=== PATIENT | female | born 1995 | race Caucasian/White ===

== ENCOUNTER 2018-09-22 00:38 | Emergency (ER) | payer OTHER ==
[2018-09-22 00:45] VITALS: RESP 18
[2018-09-22] MEDS ORDERED: FAMOTIDINE 20 MG/2 ML VIAL IV STA (00:56)
[2018-09-22] MEDS ORDERED: METOCLOPRAMIDE 5 MG/ML 2 ML VIAL IVP STA (00:56)
[2018-09-22] MEDS ORDERED: diphenhydrAMINE 50 MG/ML 1 ML VIAL IVP STA (00:56)
[2018-09-22] MEDS ORDERED: SODIUM CHLORIDE 0.9% 1,000 ML IV STA (00:56)
[2018-09-22 01:20] LABS: Basophils % (A) 0 %; Eosinophils # (A) 0.1 k/uL (0-0.7); Eosinophils % (A) 1 %; HCT 40.6 % (34.0-46.0); HGB 14.3 gm/dL (11.4-16.0); Lymphocytes # (A) 1.8 k/uL (1.0-4.8); Lymphocytes % (A) 18 %; MCH 29.2 pg (25.0-35.0); MCHC 35.3 g/dL (31.0-37.0); MCV 82.9 fL (80.0-100.0); Mean Platelet Volume 7.9; Monocytes # (A) 0.4 k/uL (0-1.0); Monocytes % (A) 4 %; Neutrophils # (A) 7.5 k/uL (1.3-7.7); Neutrophils % (A) 75 %; Platelet Count 260 k/uL (150-450); RBC 4.89 m/uL (3.80-5.40); RDW 14.1 % (11.5-15.5); WBC 10.1 k/uL (3.8-10.6)
[2018-09-22 01:23] LABS: Appearance,Urine Cloudy (Clear); Bilirubin,Urine 1+ (Negative); Blood,Urine Negative (Negative); Color,Urine Yellow; Glucose,Urine (UA) Negative (Negative); Ketones,Urine 4+ (Negative); Leukocyte Esterase,Urine Negative (Negative); Mucus,Urine Many /hpf; Nitrite,Urine Negative (Negative); Protein,Urine 1+ (Negative); RBC,Urine 5 /hpf (0-5); Specific Gravity,Urine 1.032 (1.001-1.035); Squamous Epithelial Cell,Urine 4 /hpf (0-4); WBC,Urine 3 /hpf (0-5)
[2018-09-22 01:30] LABS: ALT 22 U/L (9-52); AST 16 U/L (14-36); African American GFR (CKD) >90 (>60 ml/min/1.73 sqM); Alkaline Phosphatase 79 U/L (38-126); Amylase 85 U/L (30-110); Anion Gap 17 mmol/L; Blood Urea Nitrogen 8 mg/dL (7-17); Calcium 9.6 mg/dL (8.4-10.2); Carbon Dioxide 21 mmol/L (22-30); Chloride 102 mmol/L (98-107); Glucose 92 mg/dL (74-99); Lipase 204 U/L (23-300); Potassium 3.6 mmol/L (3.5-5.1); Sodium 140 mmol/L (137-145); Total Bilirubin 0.8 mg/dL (0.2-1.3); Total Protein 7.9 g/dL (6.3-8.2)
[2018-09-22] MEDS ORDERED: DEXTROSE 5% IN WATER 1,000 ML IV STA (02:11)
[2018-09-22] MEDS ORDERED: DEXTROSE 5% IN WATER 1,000 ML IV SCH (02:15)
--- NOTE | 2018-09-22 03:22 | ED ---
Abdominal Pain HPI - General Chief Complaint: Abdominal Pain Stated Complaint: hernia,vomiting Time Seen by Provider: 09/22/18 00:46 Source: patient Mode of arrival: wheelchair Limitations: no limitations - History of Present Illness Initial Comments: 23-year-old female patient with past medical history significant for cyclic vomiting syndrome presents to the emergency department this evening for evaluation of vomiting and acid reflux. Patient states that she was discharged from [facility] this morning after being admitted with intrac table vomiting. Patient states that she was feeling good at the time of discharge however symptoms returned this evening. Patient states she's been unable to keep down any food or fluids. Patient did undergo lab testing and CT abdomen and pelvis at [facility]. CT reports showed that she had a moderate sized hiatal hernia with evidence of gastritis. Labs showed hypokalemia which was replaced IV. Patient denies any abdominal pain currently. Denies any fever or chills. Denies any chance of . Patient denies any recent rash, shortness breath, chest pain, abdominal pain, diarrhea, constipation, back pain, numbness, tingling, dizziness, weakness, headache, visual changes, or any other complaints. - Related Data Previous Rx's Medication Instructions Recorded Ondansetron Odt [Zofran Odt] 4 mg PO Q8HR PRN #10 tab 04/25/15 Famotidine [Pepcid] 20 mg PO HS #30 tablet 09/22/18 Metoclopramide [Reglan] 10 mg PO Q8H PRN #15 tab 09/22/18 Allergies Allergy/AdvReac Type Severity Reaction Status Date / Time No Known Allergies Allergy Verified 04/25/15 14:50 Review of Systems ROS Statement: Those systems with pertinent positive or pertinent negative responses have been documented in the HPI. ROS Other: All systems not noted in ROS Statement are negative. Past Medical History Past Medical History: No Reported History History of Any Multi-Drug Resistant Organisms: None Reported Past Surgical History: No Surgical Hx Reported Past Psychological History: No Psychological Hx Reported Smoking Status: Never smoker Past Alcohol Use History: None Reported Past Drug Use History: Marijuana General Exam Limitations: no limitations General appearance: alert, in no apparent distress, other (This is a well- developed, well-nourished adult female patient in no acute distress. Vital signs upon presentation are temperature 99.1F, pulse 82, respirations 18, blood pressure 133/88, pulse ox 100% on room air.) Eye exam: Present: normal appearance, PERRL, EOMI. Absent: scleral icterus, conjunctival injection, periorbital swelling ENT exam: Present: normal exam, normal oropharynx, mucous membranes moist Respiratory exam: Present: normal lung sounds bilaterally. Absent: respiratory distress, wheezes, rales, rhonchi, stridor Cardiovascular Exam: Present: regular rate, normal rhythm, normal heart sounds. Absent: systolic murmur, diastolic murmur, rubs, gallop, clicks GI/Abdominal exam: Present: soft, normal bowel sounds. Absent: distended, tenderness, guarding, rebound, rigid Neurological exam: Present: alert, oriented X3, CN II-XII intact Psychiatric exam: Present: normal affect, normal mood Skin exam: Present: warm, dry, intact, normal color. Absent: rash Course Vital Signs 09/22/18 00:40 Temperature 99.1 F Pulse Rate 82 Respiratory 18 Rate Blood Pressure 133/88 O2 Sat by Pulse 100 Oximetry Medical Decision Making - Medical Decision Making 23-year-old female patient presents to emergency department today for evaluation of vomiting and acid reflux symptoms. Physical examination was relatively unremarkable. Abdomen was soft and nontender. Labs reviewed and are unremarkable. Potassium level is normal. Patient was given IV fluids including dextrose 5% and normal saline as well as IV Reglan and Benadryl. Upon reevalua tion patient is feeling better. I did review reports from [facility] including computed tomography scan which showed evidence for moderate size hiatal hernia with evidence of gastritis. Patient will be discharged home at this time with prescription for Pepcid and Reglan. She is instructed to follow-up with her primary care physician for recheck in 1-2 days. She does have an appointment on September 25 for an EGD with Dr. pham, she is urged to keep this appointment. Return parameters were discussed in detail. She verbalizes understanding and agrees with this plan. - Lab Data Result diagrams: 09/22/18 01:07 09/22/18 01:07 Lab Results 09/22/18 09/22/18 09/22/18 Range/Units 01:07 01:07 01:07 WBC 10.1 (3.8-10.6) k/uL RBC 4.89 (3.80-5.40) m/uL Hgb 14.3 (11.4-16.0) gm/dL Hct 40.6 (34.0-46.0) % MCV 82.9 (80.0-100.0) fL MCH 29.2 (25.0-35.0) pg MCHC 35.3 (31.0-37.0) g/dL RDW 14.1 (11.5-15.5) % Plt Count 260 (150-450) k/uL Neutrophils % 75 % Lymphocytes % 18 % Monocytes % 4 % Eosinophils % 1 % Basophils % 0 % Neutrophils # 7.5 (1.3-7.7) k/uL Lymphocytes # 1.8 (1.0-4.8) k/uL Monocytes # 0.4 (0-1.0) k/uL Eosinophils # 0.1 (0-0.7) k/uL Basophils # 0.0 (0-0.2) k/uL Sodium 140 (137-145) mmol/L Potassium 3.6 (3.5-5.1) mmol/L Chloride 102 (98-107) mmol/L Carbon Dioxide 21 L (22-30) mmol/L Anion Gap 17 mmol/L BUN 8 (7-17) mg/dL Creatinine 0.60 (0.52-1.04) mg/dL Est GFR (CKD-EPI)AfAm >90 (>60 ml/min/1.73 sqM) Est GFR (CKD-EPI)NonAf >90 (>60 ml/min/1.73 sqM) Glucose 92 (74-99) mg/dL Calcium 9.6 (8.4-10.2) mg/dL Total Bilirubin 0.8 (0.2-1.3) mg/dL AST 16 (14-36) U/L ALT 22 (9-52) U/L Alkaline Phosphatase 79 (38-126) U/L Total Protein 7.9 (6.3-8.2) g/dL Albumin 5.0 (3.5-5.0) g/dL Amylase 85 (30-110) U/L Lipase 204 (23-300) U/L Urine Color Yellow Urine Appearance Cloudy H (Clear) Urine pH 6.0 (5.0-8.0) Ur Specific [place] 1.032 (1.001-1.035) Urine Protein 1+ H (Negative) Urine Glucose (UA) Negative (Negative) Urine Ketones 4+ H (Negative) Urine Blood Negative (Negative) Urine Nitrite Negative (Negative) Urine Bilirubin 1+ H (Negative) Urine Urobilinogen 3.0 (<2.0) mg/dL Ur Leukocyte Esterase Negative (Negative) Urine RBC 5 (0-5) /hpf Urine WBC 3 (0-5) /hpf Ur Squamous Epith Cells 4 (0-4) /hpf Urine Mucus Many H (None) /hpf Disposition Clinical Impression: Hiatal hernia, Gastritis, Cyclic vomiting syndrome Disposition: HOME SELF-CARE Condition: Good Instructions (If sedation given, give patient instructions): Hiatal Hernia (ED), Gastritis (ED), Diet for Stomach Ulcers and Gastritis (ED) Additional Instructions: Eat small more frequent meals. Follow diet for gastritis. Take medications as directed. Follow-up with the jack tamp operator for your EGD scope as planned. Follow-up with primary care physician for recheck in 1-2 days. Return to the emergency department immediately for any new, worsening, or concerning symptoms. Prescriptions: Famotidine [Pepcid] 20 mg PO HS #30 tablet Metoclopramide [Reglan] 10 mg PO Q8H PRN #15 tab PRN Reason: Vomiting Is patient prescribed a controlled substance at d/c from ED?: No Referrals: None,Stated [Primary Care Provider] - 1-2 days Time of Disposition: 03:22
[2018-09-22 03:41] VITALS: BP 115/75; PULSE 59; TEMP 98.5
== END 2018-09-22 03:41 | disposition home or self-care (01) ==
LOC: EC 00:38
DX: K44.9 Diaphragmatic hernia without obstruction or gangrene (principal); K29.70 Gastritis, unspecified, without bleeding; G43.A0 Cyclical vomiting, in migraine, not intractable
CPT/HCPCS: 36415; 80053; 82150; 83690; 85025; 81001; 99284; 96374; 96375 ×2; 96361 ×2; J1200; J2765

== ENCOUNTER → 2018-10-12 | Outpatient (CLI) | payer OTHER ==
[2018-10-12 13:40] LABS: Basophils % (A) 1 %; Eosinophils # (A) 0.2 k/uL (0-0.7); Eosinophils % (A) 4 %; HCT 38.9 % (34.0-46.0); Lymphocytes # (A) 1.6 k/uL (1.0-4.8); Lymphocytes % (A) 36 %; MCH 29.4 pg (25.0-35.0); MCHC 33.6 g/dL (31.0-37.0); MCV 87.5 fL (80.0-100.0); Mean Platelet Volume 7.4; Monocytes # (A) 0.2 k/uL (0-1.0); Monocytes % (A) 5 %; Neutrophils # (A) 2.4 k/uL (1.3-7.7); Neutrophils % (A) 53 %; Platelet Count 225 k/uL (150-450); RBC 4.44 m/uL (3.80-5.40); RDW 12.8 % (11.5-15.5); WBC 4.5 k/uL (3.8-10.6)
== END | disposition home or self-care (01) ==
LOC: LABPAT 12:50
PROVIDERS: ATTEND Surgery
DX: Z01.812 Encounter for preprocedural laboratory examination (principal); K21.0 Gastro-esophageal reflux disease with esophagitis
CPT/HCPCS: 36415; 85025

== ENCOUNTER 2018-10-23 09:50 | Day surgery (SDC) | payer OTHER ==
[2018-10-22 14:47] VITALS: BMI 26.4
[2018-10-23 10:12] VITALS: TEMP 98.1
[2018-10-23] MEDS: LACTATED RINGERS 1,000 ML IV SCH ×2 (10:16→10:18)
[2018-10-23] MEDS ORDERED: LIDOCAINE 1% 20 ML VIAL (10MG/ML) FOR IV START INTRADERMA ONE (10:17)
[2018-10-23] MEDS ORDERED: PROPOFOL 10 MG/ML 20 ML VIAL IV ONE (10:19)
[2018-10-23] MEDS ORDERED: LIDOCAINE 1% INJ 10MG/ML (20 ML MDV) ONE (10:19)
--- NOTE | 2018-10-23 10:20 | P.GSHP ---
History of Present Illness H&P Date: 10/23/18 Chief Complaint: GERD This is a 19-year-old female who presents today for EGD. She has had long- standing issues with GERD. She is known to have a hiatal hernia on CAT scan. Past Medical History Past Medical History: GERD/Reflux Additional Past Medical History / Comment(s): MIGRAINES, BACK PAIN History of Any Multi-Drug Resistant Organisms: None Reported Past Surgical History: No Surgical Hx Reported Past Anesthesia/Blood Transfusion Reactions: Motion Sickness Additional Past Anesthesia/Blood Transfusion Reaction / Comment(s): NO ANESTHESIA HX Past Psychological History: No Psychological Hx Reported Smoking Status: Former smoker Past Alcohol Use History: None Reported Additional Past Alcohol Use History / Comment(s): QUIT SMOKING AT 21 YRS OLD, STARTED SMOKING AGE 15, SMOKED 1/2 PPD OR LESS. Past Drug Use History: Marijuana Additional Drug Use History / Comment(s): DAILY MARIJANA USE- SMOKED 1 JOINT AT 11 AM 10/22/18- NOTIFIED MACK AT DR LANGSTON'S OFFICE AND NOTIFIED DR VUONG, ANESTHESIOLOGIST , ALSO. - Past Family History Mother Family Medical History: No Reported History Medications and Allergies Home Medications Medication Instructions Recorded Confirmed Type Ydlcttl-Nhqv-Yohx [id number] 1 each PO Q6HR PRN 10/22/18 10/23/18 History [Excedrin] Calcium Carbonate [Tums] 500 mg PO DIRECTED PRN 10/22/18 10/22/18 History Ibuprofen [Motrin] 800 mg PO DIRECTED PRN 10/22/18 10/23/18 History Allergies Allergy/AdvReac Type Severity Reaction Status Date / Time No Known Allergies Allergy Verified 10/23/18 10:07 Surgical - Exam Vital Signs Temp Pulse Resp BP Pulse Ox 98.1 F 87 16 129/74 98 10/23/18 10:09 10/23/18 10:09 10/23/18 10:09 10/23/18 10:09 10/23/18 10:09 - General well developed, well nourished, no distress - Eyes PERRL - ENT normal pinna - Neck no masses - Respiratory normal expansion - Cardiovascular Rhythm: regular - Abdomen Abdomen: soft, non tender Assessment and Plan Assessment: GERD. We'll perform EGD.
--- NOTE | 2018-10-23 10:30 | P.OP ---
Date of Procedure: 10/23/18 Preoperative Diagnosis: GERD Postoperative Diagnosis: GERD Procedure(s) Performed: EGD Anesthesia: MAC Surgeon: Darrick Yusuf Pathology: other (Antrum) Condition: stable Disposition: PACU Description of Procedure: The patient's placed on the endoscopy table in the lateral. She received IV sedation. The gastroscope placed oropharynx passed in the esophagus and into the stomach. Scope was placed through the pylorus. The first and second portion of the duodenum appeared normal. Scope was then brought back the antrum this. Mildly inflamed. A biopsies performed. This point the patient significant coughing. The scope was retroflexed there was a moderate to large hiatal hernia seen. The GE junction was at 38 cm. Due to the patient's respiratory status the scope was withdrawn. The esophagus examined. There is evidence of esophagitis. The proximal esophagus appeared normal. Scope was w ithdrawn for patient.
[2018-10-23 11:26] VITALS: BP 118/76; PULSE 75; RESP 15
== END 2018-10-23 11:21 | disposition home or self-care (01) ==
LOC: ORWHC2ENDO 09:50
PROVIDERS: ATTEND Surgery
DX: K21.9 Gastro-esophageal reflux disease without esophagitis (principal); K29.50 Unspecified chronic gastritis without bleeding; K44.9 Diaphragmatic hernia without obstruction or gangrene; G43.909 Migraine, unspecified, not intractable, without status migrainosus; M54.9 Dorsalgia, unspecified; Z87.891 Personal history of nicotine dependence; Z79.1 Long term (current) use of non-steroidal anti-inflammatories (NSAID); Z79.82 Long term (current) use of aspirin; Z79.899 Other long term (current) drug therapy
CPT/HCPCS: 43239; 88305; 81025; J2001; J2704

== ENCOUNTER 2018-10-24 10:48 | Observation (INO) | payer OTHER ==
[2018-10-22 15:14] VITALS: BMI 26.4
[~2018-10-24 10:48] MED LIST: DEXAMETHASONE SOD PHOSPHATE 10 MG/ML 1 ML VIAL IV ONE; HEPARIN SODIUM,PORCINE 5,000 UNIT/ML 1 ML VIAL SQ ONE; HYDROmorphone 0.5 MG/0.5 ML SYRINGE IVP PRN; LIDOCAINE 1% 20 ML VIAL (10MG/ML) FOR IV START INTRADERMA PRN; MIDAZOLAM 2 MG/2 ML VIAL IV PRN; ONDANSETRON 4 MG/2 ML VIAL IVP ONE; fentaNYL (PF) 50 MCG/ML 2 ML AMP IV PRN
[2018-10-24] MEDS: LACTATED RINGERS 1,000 ML IV SCH (12:07)
--- NOTE | 2018-10-24 13:09 | P.GSHP ---
History of Present Illness H&P Date: 10/24/18 Chief Complaint: . GERD This is a 23-year-old female referred from Dr. Terry Box.The patient has had long-standing problems with reflux esophagitis. The patient underwent recent EGD is found have evidence of esophagitis. Patient has been well informed on the procedure of laparoscopic Shobha fundoplication. The patient is aware the risk of the conversion to the open procedure, risk of injury to the stomach, liver and spleen. The patient is also a risk of recurrent GERD and dysphagia symptoms. The patient understands there is a postoperative diet of full liquids for 2 weeks after surgery. Past Medical History Past Medical History: GERD/Reflux Additional Past Medical History / Comment(s): MIGRAINES, BACK PAIN History of Any Multi-Drug Resistant Organisms: None Reported Past Surgical History: No Surgical Hx Reported Past Anesthesia/Blood Transfusion Reactions: Motion Sickness Additional Past Anesthesia/Blood Transfusion Reaction / Comment(s): NO ANESTHESIA HX Past Psychological History: No Psychological Hx Reported Smoking Status: Former smoker Past Alcohol Use History: None Reported Additional Past Alcohol Use History / Comment(s): QUIT SMOKING AT 21 YRS OLD, STARTED SMOKING AGE 15, SMOKED 1/2 PPD OR LESS. Past Drug Use History: Marijuana Additional Drug Use History / Comment(s): DAILY MARIJANA USE- SMOKED 1 JOINT AT 11 AM 10/22/18- NOTIFIED MACK AT DR LANGSTON'S OFFICE AND NOTIFIED DR VUONG, ANESTHESIOLOGIST , ALSO. - Past Family History Mother Family Medical History: No Reported History Medications and Allergies Home Medications Medication Instructions Recorded Confirmed Type Fzyooch-Ziar-Wwnm [id number] 1 each PO Q6HR PRN 10/22/18 10/23/18 History [Excedrin] Calcium Carbonate [Tums] 500 mg PO DIRECTED PRN 10/22/18 10/24/18 History Ibuprofen [Motrin] 800 mg PO DIRECTED PRN 10/22/18 10/23/18 History Allergies Allergy/AdvReac Type Severity Reaction Status Date / Time No Known Allergies Allergy Verified 10/24/18 12:15 Surgical - Exam Vital Signs Temp Pulse Resp BP Pulse Ox 97.4 F L 76 17 141/67 99 10/24/18 11:58 10/24/18 11:58 10/24/18 11:58 10/24/18 11:58 10/24/18 11:58 - General well developed, well nourished, no distress - Eyes PERRL - ENT normal pinna - Neck no masses - Respiratory normal expansion - Cardiovascular Rhythm: regular - Abdomen Abdomen: soft, non tender Assessment and Plan Assessment: GERD. We'll perform laparoscopic Shobha fundoplication.
[2018-10-24] MEDS ORDERED: MORPHINE SULFATE 10 MG/ML SYRINGE ONE (13:32)
[2018-10-24] MEDS ORDERED: ESMOLOL 100 MG/10 ML VIAL ONE (13:32)
[2018-10-24] MEDS ORDERED: NEOSTIGMINE 1 MG/ML 10 ML VIAL ONE (13:32)
[2018-10-24] MEDS ORDERED: ROCURONIUM BROMIDE 10 MG/ML 10 ML VIAL IV ONE (13:32)
[2018-10-24] MEDS ORDERED: SUCCINYLCHOLINE CHLORIDE 100 MG/5 ML SYR IV ONE (13:32)
[2018-10-24] MEDS ORDERED: MIDAZOLAM 2 MG/2 ML VIAL ONE (13:32)
[2018-10-24] MEDS ORDERED: GLYCOPYRROLATE 0.2 MG/ML 2 ML VIAL ONE (13:32)
[2018-10-24] MEDS ORDERED: LIDOCAINE 1% INJ 10MG/ML (20 ML MDV) ONE (13:32)
[2018-10-24] MEDS ORDERED: fentaNYL (PF) 50 MCG/ML 2 ML AMP ONE (13:32)
[2018-10-24] MEDS ORDERED: PROPOFOL 10 MG/ML 20 ML VIAL IV ONE (13:32)
[2018-10-24] MEDS ORDERED: BUPIVACAINE (PF) 0.5% 30 ML VIAL SQ ONE (13:56)
[2018-10-24] MEDS ORDERED: LACTATED RINGERS 1,000 ML IV ONE (14:21)
[2018-10-24] MEDS ORDERED: ONDANSETRON 4 MG/2 ML VIAL IVP PRN (14:29)
--- NOTE | 2018-10-24 14:29 | P.OP ---
Date of Procedure: 10/24/18 Preoperative Diagnosis: GERD Postoperative Diagnosis: GERD Procedure(s) Performed: Laparoscopic Shobha fundal plication Anesthesia: ODILIA Surgeon: Darrick Yusuf Estimated Blood Loss (ml): 5 Pathology: none sent Condition: stable Disposition: PACU Description of Procedure: The patient was placed on the operating table in the supine position. The patient received general anesthesia. And was placed in dorsal lithotomy position. The patient was prepped and draped in the usual sterile fashion. The skin incision sites were anesthetized with 1% local Xylocaine. The skin was incised in the left periumbilical area and then using a blade less 5 mm trocar under direct visualization panel cavity was entered. After adequate insufflation the laparoscope was then placed into the peritoneal cavity. Next a 5 mm trochars placed in the right epigastric position. Another 5 millimeter trocar the right lateral position. Another 5 millimeter trocar in the left lateral position a 5 mm trocar is placed in the left epigastric position. And then the initial 5 mm trocar was exchanged for a 10 mm trocar. The left lateral lobe liver was retracted. The hernia was seen. The crural defect was then dissected using the Harmonic scissors device. A 360 crural dissection was p erformed the esophagus stomach was reduced back into the peritoneal Cavity. The crural defect was then closed using 2-0 Ethibond suture. Next the fundus of the stomach was mobilized using the Elmo scissors device. and then a 58-Turkmen bougie dilator was placed oropharynx passed into the esophagus and stomach the fundal plication wrap was then performed by grasping the fundus posteriorly and bringing it around the esophagus and stomach fundoplication was then performed using 2-0 Ethibond suture. Care was taken that the fundal location rested over top of the intra-abdominal esophagus. There was no injury seen to the stomach or esophagus. The dilator was then withdrawn. The abdomen was irrigated there is no bleeding seen. The trochars were then withdrawn and then skin incision sites were closed using 3-0 Monocryl suture Steri-Strips are applied. Patient thought procedure well and sent to recovery room in stable condition.
[2018-10-24] MEDS ORDERED: ONDANSETRON 4 MG/2 ML VIAL IVP ONE (14:58)
[2018-10-24] MEDS ORDERED: diphenhydrAMINE 50 MG/ML 1 ML VIAL IVP ONE (15:09)
[2018-10-24] MEDS: HYDROmorphone 1 MG/ML 1 ML SYRINGE IVP PRN ×2 (16:28→22:13)
[2018-10-24] MEDS: D5-0.45% NACL WITH KCL 20MEQ/L 1,000 ML IV SCH (18:10)
[2018-10-25] MEDS: METOCLOPRAMIDE 5 MG/ML 2 ML VIAL IVP PRN ×2 (01:41→08:45)
[2018-10-25] MEDS: D5-0.45% NACL WITH KCL 20MEQ/L 1,000 ML IV SCH ×3 (01:41→08:46)
[2018-10-25] MEDS: ONDANSETRON 4 MG/2 ML VIAL IVP PRN ×2 (02:50→12:01)
[2018-10-25 05:22] VITALS: RESP 16
[2018-10-25] MEDS: HYDROmorphone 1 MG/ML 1 ML SYRINGE IVP PRN ×2 (05:54→08:47)
[2018-10-25] MEDS: LACTATED RINGERS 1,000 ML IV SCH (07:52)
--- NOTE | 2018-10-25 08:49 | FL ---
EXAMINATION TYPE: FL esophagus cervic/pharynx DATE OF EXAM: 10/25/2018 LIMITED UGI-ESOPHAGRAM: CLINICAL HISTORY: Hiatal hernia per patient. Wilbert fundoplication surgery yesterday. TECHNIQUE: Limited esophagram is performed utilizing 20 oz of Isovue. A total of 31 seconds of fluor oscopic time was utilized during procedure. 14 spot images are saved. FINDINGS: The patient swallowed contrast without difficulty or delay. Esophageal peristalsis and mo tility are within normal limits. There is mild delay in flow of contrast along the diaphragmatic hiat us into the stomach, there is no evidence of contrast extravasation to suggest leak. No persistent hi atal hernia is seen. Patient shows no increased symptoms of nausea or vomiting. IMPRESSION: No evidence of leak or significant obstruction status post Wilbert fundoplication surgery yesterday.
[2018-10-25] MEDS ORDERED: ENOXAPARIN 40 MG/0.4 ML SYRINGE SQ SCH (09:00)
[2018-10-25] MEDS ORDERED: HYDROcodone/APAP 15 ML SOLUTION PO PRN (09:55)
[2018-10-25 12:04] VITALS: BP 138/88; PULSE 84; TEMP 98.6
--- NOTE | 2018-10-25 14:14 | P.DS ---
Providers Date of admission: 10/24/18 20:19 Expected date of discharge: 10/25/18 Attending physician: Darrick Yusuf Consults: 10/24/18 14:29 Consult Physician Routine Consulting Provider: Terry Rivera Consult Reason/Comments: Medical management Do you want consulting provider notified?: Yes Primary care physician: [facility] Hospital Course: 23-year-old female who underwent laparoscopic Shobha fundoplication with Dr. Yusuf. Patient is doing well postoperatively without any immediate complications. She is tolerating clear liquid diet. Her pain is controlled on oral medications. Vital signs have been stable. Esophagram completed postoperatively negative for leak or obstruction. Patient is stable for discharge home today. Please see EMR for further hospital course details. Discharge diagnosis 1. GERD, status post laparoscopic Shobha fundoplication Nurse practitioner note has been reviewed by physician. Signing provider agrees with the documented findings, assessment, and plan of care. Patient Condition at Discharge: Good Plan - Discharge Summary Discharge Rx Participant: Yes New Discharge Prescriptions: New HYDROcodone/APAP [[place] Elixir 7.5-325Mg/15Ml] 15 ml PO Q6HR PRN 3 Days #180 ml PRN Reason: Pain No Action Ibuprofen [Motrin] 800 mg PO DIRECTED PRN PRN Reason: Pain Iekznfx-Fewi-Lsty [id number] [Excedrin] 1 tab PO Q6HR PRN PRN Reason: Migraine Headache Calcium Carbonate [Tums] 500 mg PO DIRECTED PRN PRN Reason: Heartburn Discharge Medication List Ctbpqgf-Ntvk-Jqvc [id number] [Excedrin] 1 tab PO Q6HR PRN 10/22/18 [History] Calcium Carbonate [Tums] 500 mg PO DIRECTED PRN 10/22/18 [History] Ibuprofen [Motrin] 800 mg PO DIRECTED PRN 10/22/18 [History] HYDROcodone/APAP [[place] Elixir 7.5-325Mg/15Ml] 15 ml PO Q6HR PRN 3 Days #180 ml 10/25/18 [Rx] Follow up Appointment(s)/Referral(s): Terry Rivera MD [Primary Care Provider] - 1 Week Darrick Yusuf MD [STAFF PHYSICIAN] - 11/06/18 3:10 pm Activity/Diet/Wound Care/Special Instructions: full liquid diet for 2 weeks handout given and dietary has seen patient. No lifting pushing pulling over 10 [address] while taking [place] You may shower. No soaking or tub baths swimming pools Very light activity until you are reevaluated at your follow up appointment with your surgeon. Call physician with any questions comments concerns worsening returning symptoms, fever 101.1 or higher, not tolerating diet, not tolerating fluids, pain not controlled by medications prescribed. Appt for follow up has been made for you. Discharge Disposition: HOME SELF-CARE
--- NOTE | 2018-10-26 10:15 | P.CONS ---
History of Present Illness - Reason for Consult Consult date: 10/25/18 Medical management Requesting physician: Darrick Yusuf - Chief Complaint Gastroesophageal reflux disease - History of Present Illness This is a 23-year-old female with history of significant gastroesophageal reflux disease, migraines, back pain, former nicotine dependence, daily marijuana use, status post Wilbert fundoplication. Tolerated procedure well. Pain controlled. Currently mild nausea. Swallow evaluation pending. Passing flatus, no bowel movement. Ambulating, tolerated exertion well. Denies lightheadedness dizziness or focal deficits. Denies chest pain, palpitations or shortness of breath.VSS. Review of Systems ROS Statement: Those systems with pertinent positive or pertinent negative responses have been documented in the HPI. ROS Other: All systems not noted in ROS Statement are negative. Past Medical History Past Medical History: GERD/Reflux Additional Past Medical History / Comment(s): MIGRAINES, BACK PAIN History of Any Multi-Drug Resistant Organisms: None Reported Past Surgical History: No Surgical Hx Reported Past Anesthesia/Blood Transfusion Reactions: Motion Sickness Additional Past Anesthesia/Blood Transfusion Reaction / Comm: NO ANESTHESIA HX Past Psychological History: No Psychological Hx Reported Smoking Status: Former smoker Past Alcohol Use History: None Reported Additional Past Alcohol Use History / Comment(s): QUIT SMOKING AT 21 YRS OLD, STARTED SMOKING AGE 15, SMOKED 1/2 PPD OR LESS. Past Drug Use History: Marijuana Additional Drug Use History / Comment(s): DAILY MARIJANA USE- SMOKED 1 JOINT AT 11 AM 10/22/18- NOTIFIED MACK AT DR YUSUF'S OFFICE AND NOTIFIED DR VUONG, ANESTHESIOLOGIST , ALSO. - Past Family History Mother Family Medical History: No Reported History Medications and Allergies Home Medications Medication Instructions Recorded Confirmed Type Eqswtqw-Lipl-Tdim [id number] 1 tab PO Q6HR PRN 10/22/18 10/24/18 History [Excedrin] Calcium Carbonate [Tums] 500 mg PO DIRECTED PRN 10/22/18 10/24/18 History Ibuprofen [Motrin] 800 mg PO DIRECTED PRN 10/22/18 10/24/18 History HYDROcodone/APAP [[place] Elixir 15 ml PO Q6HR PRN 3 Days #180 ml 10/25/18 Rx 7.5-325Mg/15Ml] Allergies Allergy/AdvReac Type Severity Reaction Status Date / Time No Known Allergies Allergy Verified 10/24/18 22:32 Physical Exam Vitals: Vital Signs Temp Pulse Resp BP Pulse Ox 10/25/18 02:55 97.5 F L 68 16 131/85 100 10/25/18 00:21 98.4 F 107 H 18 132/71 98 10/24/18 19:25 103 H 16 111/76 98 10/24/18 18:25 114 H 16 119/68 97 10/24/18 17:25 113 H 16 120/78 97 10/24/18 16:55 94 16 116/79 95 10/24/18 16:25 91 16 129/79 98 10/24/18 16:10 101 H 16 133/84 98 10/24/18 15:55 89 16 127/85 98 10/24/18 15:40 98.0 F 88 16 128/78 100 10/24/18 15:15 82 16 126/72 98 10/24/18 15:00 86 16 136/75 100 10/24/18 14:45 97 16 133/74 100 10/24/18 14:30 109 H 16 125/60 100 10/24/18 14:23 98.8 F 104 H 16 121/59 99 10/24/18 11:58 97.4 F L 76 17 141/67 99 Intake and Output 10/24/18 10/24/18 10/25/18 14:59 22:59 06:59 Intake Total 1300 Output Total 10 Balance 1290 Intake: IV 1300 Output: Estimated Blood Loss 10 Other: # Voids 1 1 # Emeses 1 PHYSICAL EXAM: VITAL SIGNS: As above GENERAL: Sitting up in bed, no acute distress HEENT: Conjunctivae normal. eyes normal. NECK: No JVD. No thyroid enlargement. No LNs CARDIOVASCULAR: S1, S2 regular.. No murmur RESPIRATION: Breath sounds diminished in the bases. No rhonchi or crackles. No bronchial breathing. ABDOMEN: Soft, status post surgery, tender ,No guarding. Bowel sounds heard. LEGS: No edema. no swelling PSYCHIATRY: Alert and oriented X3, mood and affect normal. NERVOUS SYSTEM: Cranial N 2-12 grossly normal. Moves all 4 limbs. No focal deficits. Strength and sensation grossly intact.. Skin: no lesions, no rash Joints: No active swelling. No inflammation. Lymphatic system. No LN neck axilla or groin. Assessment and Plan Assessment: -Gastroesophageal reflux disease, status post laparoscopic Wilbert fundoplication -Chronic back pain -History of migraines -Daily marijuana use -History of nicotine abuse Plan: Continue on current medication regime ,monitoring and symptomatic treatment. Esophagram completed reporting negative for leak or obstruction, diet has been advanced to clear liquids. Tolerating diet and patient is being discharged by surgery today. Follow-up PCP in [address] Yusuf for the consult. The impression and plan of care has been dictated as directed. : I performed a history and examination of this patient, discussed the same with the dictator. I agree with the dictator's note ,documented as a scribe. Any additional findings or plans will be noted.
== END 2018-10-25 12:20 | disposition home or self-care (01) ==
LOC: OR 10:48 → 6PED 14:19 → OR 20:40
PROVIDERS: ADMIT Surgery; ATTEND Surgery
DX: K21.0 Gastro-esophageal reflux disease with esophagitis (principal); G43.909 Migraine, unspecified, not intractable, without status migrainosus; F12.90 Cannabis use, unspecified, uncomplicated; R11.0 Nausea; G89.29 Other chronic pain; M54.9 Dorsalgia, unspecified; Z79.1 Long term (current) use of non-steroidal anti-inflammatories (NSAID); Z87.891 Personal history of nicotine dependence
CPT/HCPCS: 43280; 96372; 81025; 74210; G0378 ×2; J2250; J1200; J1644; J1100; J2710; J2765; J2270; J0690; J2405 ×2; J2001; J1650; J3010; J1170 ×3; J0330; J2704; Q9967

== ENCOUNTER 2018-11-22 20:50 | Emergency (ER) | payer OTHER ==
[2018-11-22] MEDS ORDERED: SODIUM CHLORIDE 0.9% 2,000 ML IV STA (21:12)
[2018-11-22] MEDS ORDERED: KETOROLAC 30 MG/ML 1 ML VIAL IVP STA (21:12)
[2018-11-22] MEDS ORDERED: ONDANSETRON 4 MG/2 ML VIAL IVP STA (21:12)
[2018-11-22 21:22] LABS: Basophils % (A) 0 %; Eosinophils # (A) 0.1 k/uL (0-0.7); Eosinophils % (A) 1 %; HCT 43.4 % (34.0-46.0); HGB 14.8 gm/dL (11.4-16.0); Lymphocytes # (A) 2.1 k/uL (1.0-4.8); Lymphocytes % (A) 18 %; MCH 29.4 pg (25.0-35.0); MCHC 34.2 g/dL (31.0-37.0); Monocytes # (A) 0.7 k/uL (0-1.0); Monocytes % (A) 6 %; Neutrophils # (A) 8.9 k/uL (1.3-7.7); Neutrophils % (A) 75 %; Platelet Count 292 k/uL (150-450); RBC 5.04 m/uL (3.80-5.40); RDW 13.7 % (11.5-15.5)
[2018-11-22 21:32] LABS: ALT 16 U/L (9-52); AST 18 U/L (14-36); African American GFR (CKD) >90 (>60 ml/min/1.73 sqM); Albumin 5.2 g/dL (3.5-5.0); Alkaline Phosphatase 78 U/L (38-126); Amylase 43 U/L (30-110); Anion Gap 15 mmol/L; Blood Urea Nitrogen 11 mg/dL (7-17); Calcium 10.3 mg/dL (8.4-10.2); Carbon Dioxide 21 mmol/L (22-30); Chloride 104 mmol/L (98-107); Glucose 100 mg/dL (74-99); Potassium 3.8 mmol/L (3.5-5.1); Sodium 140 mmol/L (137-145); Total Bilirubin 0.6 mg/dL (0.2-1.3); Total Protein 8.5 g/dL (6.3-8.2)
[2018-11-22] MEDS ORDERED: diphenhydrAMINE 50 MG/ML 1 ML VIAL IVP STA (22:13)
[2018-11-22] MEDS ORDERED: METOCLOPRAMIDE 5 MG/ML 2 ML VIAL IVP STA (22:13)
--- NOTE | 2018-11-22 22:16 | ED ---
Nausea/Vomiting/Diarrhea HPI - General Chief complaint: Nausea/Vomiting/Diarrhea Stated complaint: vomiting Time Seen by Provider: 11/22/18 21:04 Source: patient, RN notes reviewed Mode of arrival: ambulatory Limitations: no limitations - History of Present Illness Initial comments: 23-year-old female presents emergency Department chief complaint of nausea vomiting. Patient states symptoms started yesterday. Patient states that she cannot keep anything down she is very nauseated. Denies any localized abdominal pain. Patient states that she's had a low-grade temp. Patient denies any cough or cold-like symptoms no sore throat. She does admit that she had prior surgery for hiatal hernia by Dr. Yusuf. Patient denies any went of upper abdominal pain, chest pain no flank pain or dysuria. - Related Data Home Medications Medication Instructions Recorded Confirmed [id number] 1 tab PO Q6HR PRN 10/22/18 10/24/18 [Excedrin] Calcium Carbonate [Tums] 500 mg PO DIRECTED PRN 10/22/18 10/24/18 Ibuprofen [Motrin] 800 mg PO DIRECTED PRN 10/22/18 10/24/18 Previous Rx's Medication Instructions Recorded HYDROcodone/APAP [[place] Elixir 15 ml PO Q6HR PRN 3 Days #180 ml 10/25/18 7.5-325Mg/15Ml] Ondansetron Odt [Zofran Odt] 4 mg PO Q8HR PRN #10 tab 11/22/18 Allergies Allergy/AdvReac Type Severity Reaction Status Date / Time No Known Allergies Allergy Verified 11/22/18 20:57 Review of Systems ROS Statement: Those systems with pertinent positive or pertinent negative responses have been documented in the HPI. ROS Other: All systems not noted in ROS Statement are negative. Past Medical History Past Medical History: GERD/Reflux Additional Past Medical History / Comment(s): MIGRAINES, BACK PAIN History of Any Multi-Drug Resistant Organisms: None Reported Past Surgical History: No Surgical Hx Reported Past Anesthesia/Blood Transfusion Reactions: Motion Sickness Additional Past Anesthesia/Blood Transfusion Reaction / Comment(s): NO ANESTHESIA HX Past Psychological History: No Psychological Hx Reported Smoking Status: Former smoker Past Alcohol Use History: None Reported Past Drug Use History: Marijuana - Past Family History Mother Family Medical History: No Reported History General Exam Limitations: no limitations General appearance: alert, in no apparent distress Head exam: Present: atraumatic, normocephalic, normal inspection Neck exam: Present: normal inspection. Absent: tenderness, meningismus, lymphadenopathy Respiratory exam: Present: normal lung sounds bilaterally. Absent: respiratory distress, wheezes, rales, rhonchi, stridor Cardiovascular Exam: Present: regular rate, normal rhythm, normal heart sounds. Absent: systolic murmur, diastolic murmur, rubs, gallop, clicks GI/Abdominal exam: Present: soft, normal bowel sounds. Absent: distended, tenderness, guarding, rebound, rigid Back exam: Absent: CVA tenderness (R), CVA tenderness (L) Skin exam: Present: warm, dry, intact, normal color. Absent: rash Course Vital Signs 11/22/18 11/22/18 11/22/18 20:55 21:01 22:35 Temperature 99.4 F 99.9 F H 97.9 F Pulse Rate 71 Respiratory 18 Rate Blood Pressure 137/84 O2 Sat by Pulse 99 Oximetry Medical Decision Making - Medical Decision Making 23-year-old female presented emergency from for nausea vomiting. Patient no localized abdominal pain. Patient's found to be dehydrated. She was given 2 L of fluids, antiemetics and does feel improved. Patient will be discharged. Return parameters were discussed. - Lab Data Result diagrams: 11/22/18 21:10 11/22/18 21:10 Lab Results 11/22/18 11/22/18 11/22/18 Range/Units 20:36 20:36 21:10 WBC (3.8-10.6) k/uL RBC (3.80-5.40) m/uL Hgb (11.4-16.0) gm/dL Hct (34.0-46.0) % MCV (80.0-100.0) fL MCH (25.0-35.0) pg MCHC (31.0-37.0) g/dL RDW (11.5-15.5) % Plt Count (150-450) k/uL Neutrophils % % Lymphocytes % % Monocytes % % Eosinophils % % Basophils % % Neutrophils # (1.3-7.7) k/uL Lymphocytes # (1.0-4.8) k/uL Monocytes # (0-1.0) k/uL Eosinophils # (0-0.7) k/uL Basophils # (0-0.2) k/uL Sodium 140 (137-145) mmol/L Potassium 3.8 (3.5-5.1) mmol/L Chloride 104 (98-107) mmol/L Carbon Dioxide 21 L (22-30) mmol/L Anion Gap 15 mmol/L BUN 11 (7-17) mg/dL Creatinine 0.62 (0.52-1.04) mg/dL Est GFR (CKD-EPI)AfAm >90 (>60 ml/min/1.73 sqM) Est GFR (CKD-EPI)NonAf >90 (>60 ml/min/1.73 sqM) Glucose 100 H (74-99) mg/dL Calcium 10.3 H (8.4-10.2) mg/dL Total Bilirubin 0.6 (0.2-1.3) mg/dL AST 18 (14-36) U/L ALT 16 (9-52) U/L Alkaline Phosphatase 78 (38-126) U/L Total Protein 8.5 H (6.3-8.2) g/dL Albumin 5.2 H (3.5-5.0) g/dL Amylase 43 (30-110) U/L Lipase 50 (23-300) U/L Urine Color Yellow Urine Appearance Cloudy H (Clear) Urine pH 6.0 (5.0-8.0) Ur Specific [place] 1.035 (1.001-1.035) Urine Protein 1+ H (Negative) Urine Glucose (UA) Negative (Negative) Urine Ketones 4+ H (Negative) Urine Blood Trace H (Negative) Urine Nitrite Negative (Negative) Urine Bilirubin Negative (Negative) Urine Urobilinogen 2.0 (<2.0) mg/dL Ur Leukocyte Esterase Small H (Negative) Urine RBC 4 (0-5) /hpf Urine WBC 7 H (0-5) /hpf Ur Squamous Epith Cells 26 H (0-4) /hpf Urine Mucus Many H (None) /hpf Urine HCG, Qual Not Detected (Not Detectd) 11/22/18 Range/Units 21:10 WBC 12.0 H (3.8-10.6) k/uL RBC 5.04 (3.80-5.40) m/uL Hgb 14.8 (11.4-16.0) gm/dL Hct 43.4 (34.0-46.0) % MCV 86.0 (80.0-100.0) fL MCH 29.4 (25.0-35.0) pg MCHC 34.2 (31.0-37.0) g/dL RDW 13.7 (11.5-15.5) % Plt Count 292 (150-450) k/uL Neutrophils % 75 % Lymphocytes % 18 % Monocytes % 6 % Eosinophils % 1 % Basophils % 0 % Neutrophils # 8.9 H (1.3-7.7) k/uL Lymphocytes # 2.1 (1.0-4.8) k/uL Monocytes # 0.7 (0-1.0) k/uL Eosinophils # 0.1 (0-0.7) k/uL Basophils # 0.0 (0-0.2) k/uL Sodium (137-145) mmol/L Potassium (3.5-5.1) mmol/L Chloride (98-107) mmol/L Carbon Dioxide (22-30) mmol/L Anion Gap mmol/L BUN (7-17) mg/dL Creatinine (0.52-1.04) mg/dL Est GFR (CKD-EPI)AfAm (>60 ml/min/1.73 sqM) Est GFR (CKD-EPI)NonAf (>60 ml/min/1.73 sqM) Glucose (74-99) mg/dL Calcium (8.4-10.2) mg/dL Total Bilirubin (0.2-1.3) mg/dL AST (14-36) U/L ALT (9-52) U/L Alkaline Phosphatase (38-126) U/L Total Protein (6.3-8.2) g/dL Albumin (3.5-5.0) g/dL Amylase (30-110) U/L Lipase (23-300) U/L Urine Color Urine Appearance (Clear) Urine pH (5.0-8.0) Ur Specific [place] (1.001-1.035) Urine Protein (Negative) Urine Glucose (UA) (Negative) Urine Ketones (Negative) Urine Blood (Negative) Urine Nitrite (Negative) Urine Bilirubin (Negative) Urine Urobilinogen (<2.0) mg/dL Ur Leukocyte Esterase (Negative) Urine RBC (0-5) /hpf Urine WBC (0-5) /hpf Ur Squamous Epith Cells (0-4) /hpf Urine Mucus (None) /hpf Urine HCG, Qual (Not Detectd) Disposition Clinical Impression: Dehydration, Nausea & vomiting Disposition: HOME SELF-CARE Condition: Stable Instructions (If sedation given, give patient instructions): Acute Nausea and Vomiting (ED) Additional Instructions: Please return to the Emergency Department if symptoms worsen or any other c oncerns. Is patient prescribed a controlled substance at d/c from ED?: No Referrals: None,Stated [Primary Care Provider] - 1-2 days Time of Disposition: 23:40
[2018-11-22 22:59] LABS: Appearance,Urine Cloudy (Clear); Bilirubin,Urine Negative (Negative); Blood,Urine Trace (Negative); Color,Urine Yellow; Glucose,Urine (UA) Negative (Negative); Ketones,Urine 4+ (Negative); Leukocyte Esterase,Urine Small (Negative); Mucus,Urine Many /hpf; Nitrite,Urine Negative (Negative); Protein,Urine 1+ (Negative); RBC,Urine 4 /hpf (0-5); Specific Gravity,Urine 1.035 (1.001-1.035); Squamous Epithelial Cell,Urine 26 /hpf (0-4)
[2018-11-22] MEDS ORDERED: ONDANSETRON 4 MG ODT STARTER PACK 2 TAB BTL PO STA (23:39)
[2018-11-23 00:40] VITALS: BP 103/60; PULSE 57; RESP 18; TEMP 98.2
== END 2018-11-23 00:40 | disposition home or self-care (01) ==
LOC: EC 20:50
DX: E86.0 Dehydration (principal); R11.2 Nausea with vomiting, unspecified; Z32.02 Encounter for pregnancy test, result negative; Z87.891 Personal history of nicotine dependence
CPT/HCPCS: 36415; 80053; 82150; 83690; 85025; 81001; 81025; 99284; 96374; 96375 ×3; 96361; J1200; J2765; J2405; J1885; S0119

== ENCOUNTER 2018-11-23 13:18 | Emergency (ER) | payer OTHER ==
[2018-11-23 13:45] VITALS: RESP 18
[2018-11-23] MEDS ORDERED: SODIUM CHLORIDE 0.9% 1,000 ML IV STA (14:43)
[2018-11-23] MEDS ORDERED: METOCLOPRAMIDE 5 MG/ML 2 ML VIAL IVP STA (14:43)
[2018-11-23 15:11] LABS: Basophils % (A) 0 %; Eosinophils # (A) 0.1 k/uL (0-0.7); Eosinophils % (A) 1 %; HCT 42.6 % (34.0-46.0); HGB 14.3 gm/dL (11.4-16.0); Lymphocytes # (A) 2.2 k/uL (1.0-4.8); Lymphocytes % (A) 25 %; MCH 29.5 pg (25.0-35.0); MCHC 33.7 g/dL (31.0-37.0); MCV 87.4 fL (80.0-100.0); Mean Platelet Volume 8.1; Monocytes # (A) 0.5 k/uL (0-1.0); Monocytes % (A) 5 %; Neutrophils # (A) 5.8 k/uL (1.3-7.7); Neutrophils % (A) 67 %; Platelet Count 211 k/uL (150-450); RBC 4.87 m/uL (3.80-5.40); RDW 12.7 % (11.5-15.5); WBC 8.8 k/uL (3.8-10.6)
[2018-11-23 15:18] LABS: ALT 13 U/L (9-52); AST 21 U/L (14-36); African American GFR (CKD) >90 (>60 ml/min/1.73 sqM); Albumin 4.9 g/dL (3.5-5.0); Alkaline Phosphatase 59 U/L (38-126); Anion Gap 12 mmol/L; Blood Urea Nitrogen 8 mg/dL (7-17); Calcium 9.4 mg/dL (8.4-10.2); Carbon Dioxide 21 mmol/L (22-30); Chloride 107 mmol/L (98-107); Glucose 80 mg/dL (74-99); Non-African American GFR(CKD) >90 (>60 ml/min/1.73 sqM); Potassium 3.7 mmol/L (3.5-5.1); Sodium 140 mmol/L (137-145); Total Bilirubin 0.7 mg/dL (0.2-1.3)
--- NOTE | 2018-11-23 15:29 | ED ---
Nausea/Vomiting/Diarrhea HPI - General Chief complaint: Nausea/Vomiting/Diarrhea Stated complaint: Nausea,Vomiting Time Seen by Provider: 11/23/18 13:56 Source: patient Mode of arrival: ambulatory Limitations: no limitations - History of Present Illness Initial comments: Patient is a 23-year-old female presenting to emergency Department with complaints of nausea and vomiting 4 days. Patient was in the ER yesterday for same complaint. Patient sent home with Zofran. She states it is not helping. Patient reports lower abdominal cramping. Patient denies fever, chills, diarrhea. Patient has no other complaints at this time. Upon arrival to ER, vital signs are stable, afebrile. - Related Data Home Medications Medication Instructions Recorded Confirmed [id number] 1 tab PO Q6HR PRN 10/22/18 11/22/18 [Excedrin] Calcium Carbonate [Tums] 500 mg PO DIRECTED PRN 10/22/18 11/22/18 Ibuprofen [Motrin] 800 mg PO DIRECTED PRN 10/22/18 11/22/18 Previous Rx's Medication Instructions Recorded HYDROcodone/APAP [[place] Elixir 15 ml PO Q6HR PRN 3 Days #180 ml 10/25/18 7.5-325Mg/15Ml] Ondansetron Odt [Zofran Odt] 4 mg PO Q8HR PRN #10 tab 11/22/18 Metoclopramide [Reglan] 10 mg PO TID PRN #15 tab 11/23/18 Allergies Allergy/AdvReac Type Severity Reaction Status Date / Time No Known Allergies Allergy Verified 11/23/18 13:45 Review of Systems ROS Statement: Those systems with pertinent positive or pertinent negative responses have been documented in the HPI. ROS Other: All systems not noted in ROS Statement are negative. Past Medical History Past Medical History: GERD/Reflux Additional Past Medical History / Comment(s): MIGRAINES, BACK PAIN History of Any Multi-Drug Resistant Organisms: None Reported Past Surgical History: Hernia Repair Past Anesthesia/Blood Transfusion Reactions: Motion Sickness Additional Past Anesthesia/Blood Transfusion Reaction / Comment(s): NO ANESTHESIA HX Past Psychological History: No Psychological Hx Reported Smoking Status: Former smoker Past Alcohol Use History: None Reported Past Drug Use History: Marijuana - Past Family History Mother Family Medical History: No Reported History General Exam - General Exam Comments Initial Comments: GENERAL: Well-appearing, well-nourished and in no acute distress. HEAD: Atraumatic, normocephalic. EYES: Pupils equal round and reactive to light, extraocular movements intact, sclera anicteric, conjunctiva are normal. ENT: TMs normal, nares patent, oropharynx clear without exudates. Moist mucous membranes. NECK: Normal range of motion, supple without lymphadenopathy or JVD. LUNGS: Breath sounds clear to auscultation bilaterally and equal. No wheezes rales or rhonchi. HEART: Regular rate and rhythm without murmurs, rubs or gallops. ABDOMEN: Mild lower abdominal tenderness. Soft, normoactive bowel sounds. No guarding, no rebound. No masses appreciated. : Deferred EXTREMITIES: Normal range of motion, no pitting or edema. No clubbing or cyanosis. NEUROLOGICAL: Cranial nerves II through XII grossly intact. Normal speech, normal gait. PSYCH: Normal mood, normal affect. SKIN: Warm, Dry, normal turgor, no rashes or lesions noted. Limitations: no limitations Course Vital Signs 11/23/18 11/23/18 13:43 15:38 Temperature 99.3 F 98.2 F Pulse Rate 51 L 77 Respiratory 18 18 Rate Blood Pressure 111/69 111/74 O2 Sat by Pulse 100 100 Oximetry Medical Decision Making - Medical Decision Making Patient is 23 erythema here for nausea and vomiting 4 days. Patient was in the ER yesterday for same complaint. Exam is unremarkable. Vital signs are stable. Afebrile. CBC, CMP are within normal limits. Patient was given fluids and Reglan and she reports improvement. Patient is asking to be discharged. Was discussed with patient this is most likely viral in nature. Return parameters were discussed with the patient she verbalized understanding. She'll be sent home with Reglan. Case discussed with Dr. Vazquez. - Lab Data Result diagrams: 11/23/18 14:57 11/23/18 14:57 Lab Results 11/23/18 11/23/18 11/23/18 Range/Units 14:57 14:57 14:57 WBC 8.8 (3.8-10.6) k/uL RBC 4.87 (3.80-5.40) m/uL Hgb 14.3 (11.4-16.0) gm/dL Hct 42.6 (34.0-46.0) % MCV 87.4 (80.0-100.0) fL MCH 29.5 (25.0-35.0) pg MCHC 33.7 (31.0-37.0) g/dL RDW 12.7 (11.5-15.5) % Plt Count 211 (150-450) k/uL Neutrophils % 67 % Lymphocytes % 25 % Monocytes % 5 % Eosinophils % 1 % Basophils % 0 % Neutrophils # 5.8 (1.3-7.7) k/uL Lymphocytes # 2.2 (1.0-4.8) k/uL Monocytes # 0.5 (0-1.0) k/uL Eosinophils # 0.1 (0-0.7) k/uL Basophils # 0.0 (0-0.2) k/uL Sodium 140 (137-145) mmol/L Potassium 3.7 (3.5-5.1) mmol/L Chloride 107 (98-107) mmol/L Carbon Dioxide 21 L (22-30) mmol/L Anion Gap 12 mmol/L BUN 8 (7-17) mg/dL Creatinine 0.52 (0.52-1.04) mg/dL Est GFR (CKD-EPI)AfAm >90 (>60 ml/min/1.73 sqM) Est GFR (CKD-EPI)NonAf >90 (>60 ml/min/1.73 sqM) Glucose 80 (74-99) mg/dL Plasma Lactic Acid Ilya 1.3 (0.7-2.0) mmol/L Calcium 9.4 (8.4-10.2) mg/dL Total Bilirubin 0.7 (0.2-1.3) mg/dL AST 21 (14-36) U/L ALT 13 (9-52) U/L Alkaline Phosphatase 59 (38-126) U/L Total Protein 8.0 (6.3-8.2) g/dL Albumin 4.9 (3.5-5.0) g/dL Disposition Clinical Impression: Nausea & vomiting, Dehydration, Gastroenteritis Disposition: HOME SELF-CARE Condition: Stable Instructions (If sedation given, give patient instructions): Acute Nausea and Vomiting (ED) Additional Instructions: Please return to the Emergency Department if symptoms worsen or any other concerns. Prescriptions: Metoclopramide [Reglan] 10 mg PO TID PRN #15 tab PRN Reason: GERD Is patient prescribed a controlled substance at d/c from ED?: No Referrals: None,Stated [Primary Care Provider] - 1-2 days
[2018-11-23 15:40] VITALS: BP 111/74; PULSE 77; TEMP 98.2
== END 2018-11-23 15:40 | disposition home or self-care (01) ==
LOC: EC 13:18
DX: K52.9 Noninfective gastroenteritis and colitis, unspecified (principal); E86.0 Dehydration; Z87.891 Personal history of nicotine dependence
CPT/HCPCS: 36415; 80053; 83605; 85025; 99284; 96374; 96361; J2765

== ENCOUNTER 2019-01-14 12:56 | Emergency (ER) | payer OTHER ==
[2019-01-14 12:59] VITALS: TEMP 98
[2019-01-14] MEDS ORDERED: SODIUM CHLORIDE 0.9% 2,000 ML IV STA (13:48)
[2019-01-14] MEDS ORDERED: ONDANSETRON 4 MG/2 ML VIAL IVP STA (13:48)
[2019-01-14 14:32] LABS: Appearance,Urine Cloudy (Clear); Bilirubin,Urine Negative (Negative); Blood,Urine Negative (Negative); Color,Urine Yellow; Glucose,Urine (UA) Negative (Negative); Ketones,Urine 2+ (Negative); Leukocyte Esterase,Urine Negative (Negative); Mucus,Urine Moderate /hpf; Nitrite,Urine Negative (Negative); Protein,Urine 1+ (Negative); RBC,Urine 2 /hpf (0-5); Specific Gravity,Urine 1.038 (1.001-1.035); Squamous Epithelial Cell,Urine 14 /hpf (0-4); WBC,Urine 6 /hpf (0-5)
[2019-01-14 14:35] LABS: Basophils % (A) 0 %; Eosinophils % (A) 0 %; Lymphocytes # (A) 1.4 k/uL (1.0-4.8); Lymphocytes % (A) 16 %; MCH 29.7 pg (25.0-35.0); MCHC 34.2 g/dL (31.0-37.0); MCV 86.7 fL (80.0-100.0); Mean Platelet Volume 7.2; Monocytes # (A) 0.3 k/uL (0-1.0); Monocytes % (A) 3 %; Neutrophils % (A) 80 %; Platelet Count 218 k/uL (150-450); RBC 4.72 m/uL (3.80-5.40); RDW 12.3 % (11.5-15.5); WBC 8.8 k/uL (3.8-10.6)
[2019-01-14 14:39] LABS: ALT 22 U/L (9-52); AST 19 U/L (14-36); African American GFR (CKD) >90 (>60 ml/min/1.73 sqM); Albumin 4.9 g/dL (3.5-5.0); Alkaline Phosphatase 67 U/L (38-126); Anion Gap 14 mmol/L; Blood Urea Nitrogen 13 mg/dL (7-17); Calcium 9.7 mg/dL (8.4-10.2); Carbon Dioxide 22 mmol/L (22-30); Chloride 104 mmol/L (98-107); Glucose 127 mg/dL (74-99); Potassium 3.6 mmol/L (3.5-5.1); Sodium 140 mmol/L (137-145); Total Bilirubin 0.3 mg/dL (0.2-1.3); Total Protein 7.8 g/dL (6.3-8.2)
[2019-01-14 15:24] VITALS: RESP 18
--- NOTE | 2019-01-14 15:27 | XR ---
EXAMINATION TYPE: XR KUB DATE OF EXAM: 01/14/2019 2:53 PM CLINICAL HISTORY: Abdominal pain and vomiting for 2 days. History of Shobha fundoplication. TECHNIQUE: Single upright image of the abdomen is obtained. COMPARISON: 04/25/2015. FINDINGS: Surgical clips are seen at the gastroesophageal junction. Lung bases are well aerated. Ther e is a paucity of gas in the upper abdomen, nonspecific. No dilated large or small bowel. No pneumope ritoneum. Osseous structures are intact. No abnormal calcifications in the abdomen or pelvis. Posteri or bowel gas appears similar to the prior of 04/25/2018. IMPRESSION: Nonobstructive bowel gas pattern. Paucity of bowel gas in the upper abdomen is nonspecifi c and unchanged from 04/25/2015. Postsurgical changes of the gastroesophageal junction from prior know n Shobha fundoplication.
[2019-01-14] MEDS ORDERED: METOCLOPRAMIDE 5 MG/ML 2 ML VIAL IVP STA (15:34)
[2019-01-14] MEDS ORDERED: diphenhydrAMINE 50 MG/ML 1 ML VIAL IVP STA (15:34)
--- NOTE | 2019-01-14 16:22 | ED ---
Nausea/Vomiting/Diarrhea HPI - General Chief complaint: Nausea/Vomiting/Diarrhea Stated complaint: Vomiting Time Seen by Provider: 01/14/19 13:00 Source: patient Mode of arrival: ambulatory Limitations: no limitations - History of Present Illness Initial comments: The patient is a 23-year-old female presents emergency room with reported nausea and vomiting. Friend is at bedside does provide history. They report that the patient has had nausea and vomiting since yesterday. She is concerned that she got into some tainted foods. She reports that she has had multiple episodes of nonbilious, nonbloody vomiting. Chest reports a generalized abdominal pain. She does have Zofran and Reglan at home. She's been unable to hold these down. States that every time she eats or drinks she throws it right back up. Denies any fevers or chills. No changes in her bowel function. Denies diarrhea, cuts patient, melanotic stools or hematochezia. Denies any dysuria, hematuria or difficulty voiding. No abnormal vaginal bleeding or discharge. No concern for or sexually transmitted infections. She does have a history of a Shobha fundoplication. Some minor reflux. Denies any chest pain or shortness of breath. There are no other alleviating, precipitating or modifying factors - Related Data Previous Rx's Medication Instructions Recorded Ondansetron Odt [Zofran Odt] 4 mg PO Q8HR PRN #15 tab 01/14/19 Allergies Allergy/AdvReac Type Severity Reaction Status Date / Time No Known Allergies Allergy Verified 01/14/19 13:33 Review of Systems ROS Statement: Those systems with pertinent positive or pertinent negative responses have been documented in the HPI. ROS Other: All systems not noted in ROS Statement are negative. Past Medical History Past Medical History: GERD/Reflux Additional Past Medical History / Comment(s): MIGRAINES, BACK PAIN History of Any Multi-Drug Resistant Organisms: None Reported Past Surgical History: Hernia Repair Past Anesthesia/Blood Transfusion Reactions: Motion Sickness Additional Past Anesthesia/Blood Transfusion Reaction / Comment(s): NO ANESTHESIA HX Past Psychological History: No Psychological Hx Reported Smoking Status: Former smoker Past Alcohol Use History: None Reported Past Drug Use History: Marijuana - Past Family History Mother Family Medical History: No Reported History General Exam Limitations: no limitations General appearance: alert, in no apparent distress Head exam: Present: atraumatic, normocephalic, normal inspection Eye exam: Present: normal appearance, PERRL, EOMI. Absent: scleral icterus, conjunctival injection, periorbital swelling ENT exam: Present: normal exam, mucous membranes moist Neck exam: Present: normal inspection. Absent: tenderness, meningismus, lymphadenopathy Respiratory exam: Present: normal lung sounds bilaterally. Absent: respiratory distress, wheezes, rales, rhonchi, stridor Cardiovascular Exam: Present: regular rate, normal rhythm, normal heart sounds. Absent: systolic murmur, diastolic murmur, rubs, gallop, clicks GI/Abdominal exam: Present: soft, normal bowel sounds. Absent: distended, tenderness, guarding, rebound, rigid Extremities exam: Present: normal inspection, full ROM, normal capillary refill. Absent: tenderness, pedal edema, joint swelling, calf tenderness Back exam: Present: normal inspection Neurological exam: Present: alert, oriented X3, CN II-XII intact Psychiatric exam: Present: normal affect, normal mood Skin exam: Present: warm, intact, normal color, diaphoretic. Absent: rash Course Vital Signs 01/14/19 01/14/19 01/14/19 12:56 15:20 16:47 Temperature 98.0 F 98.0 F Pulse Rate 68 90 88 Respiratory 16 18 18 Rate Blood Pressure 123/90 127/75 107/72 O2 Sat by Pulse 100 100 100 Oximetry Medical Decision Making - Medical Decision Making Upon arrival the patient is placed into room 28. A thorough history and physical exam is performed. peripheral IV was established. patient was given 2 L of normal saline. I also provided a 4 mg of Zofran. Laboratory studies were conducted. CBC and CMP are unremarkable. Lipase is mildly elevated at 411. Urinalysis shows 2+ ketones. HCG is negative. I did discuss the results with the patient. She does report improvement in her symptoms are worse or makes nauseated. At that provide the patient with 10 mg of Reglan and 25 mg of Benadryl. She is also provided with 30 mg of Toradol. The patient is ree valuated and reports improvement in her symptoms. I did recommend CT confirms the patient's abdomen however she refuses. The patient will be discharged home. I did provide her with follow-up information for Dr. Quinones's office. I also provided the patient with prescriptions for Zofran as she does have Reglan at home. If she has any new or worsening symptoms she should return to the emergency room. The patient was discharged home in stable condition - Lab Data Result diagrams: 01/14/19 14:12 01/14/19 14:12 Lab Results 01/14/19 01/14/19 01/14/19 Range/Units 14:03 14:03 14:12 WBC 8.8 (3.8-10.6) k/uL RBC 4.72 (3.80-5.40) m/uL Hgb 14.0 (11.4-16.0) gm/dL Hct 41.0 (34.0-46.0) % MCV 86.7 (80.0-100.0) fL MCH 29.7 (25.0-35.0) pg MCHC 34.2 (31.0-37.0) g/dL RDW 12.3 (11.5-15.5) % Plt Count 218 (150-450) k/uL Neutrophils % 80 % Lymphocytes % 16 % Monocytes % 3 % Eosinophils % 0 % Basophils % 0 % Neutrophils # 7.0 (1.3-7.7) k/uL Lymphocytes # 1.4 (1.0-4.8) k/uL Monocytes # 0.3 (0-1.0) k/uL Eosinophils # 0.0 (0-0.7) k/uL Basophils # 0.0 (0-0.2) k/uL Sodium (137-145) mmol/L Potassium (3.5-5.1) mmol/L Chloride (98-107) mmol/L Carbon Dioxide (22-30) mmol/L Anion Gap mmol/L BUN (7-17) mg/dL Creatinine (0.52-1.04) mg/dL Est GFR (CKD-EPI)AfAm (>60 ml/min/1.73 sqM) Est GFR (CKD-EPI)NonAf (>60 ml/min/1.73 sqM) Glucose (74-99) mg/dL Calcium (8.4-10.2) mg/dL Total Bilirubin (0.2-1.3) mg/dL AST (14-36) U/L ALT (9-52) U/L Alkaline Phosphatase (38-126) U/L Total Protein (6.3-8.2) g/dL Albumin (3.5-5.0) g/dL Lipase (23-300) U/L Urine Color Yellow Urine Appearance Cloudy H (Clear) Urine pH 6.0 (5.0-8.0) Ur Specific [place] 1.038 H (1.001-1.035) Urine Protein 1+ H (Negative) Urine Glucose (UA) Negative (Negative) Urine Ketones 2+ H (Negative) Urine Blood Negative (Negative) Urine Nitrite Negative (Negative) Urine Bilirubin Negative (Negative) Urine Urobilinogen 2.0 (<2.0) mg/dL Ur Leukocyte Esterase Negative (Negative) Urine RBC 2 (0-5) /hpf Urine WBC 6 H (0-5) /hpf Ur Squamous Epith Cells 14 H (0-4) /hpf Urine Mucus Moderate H (None) /hpf Urine HCG, Qual Not Detected (Not Detectd) 01/14/19 Range/Units 14:12 WBC (3.8-10.6) k/uL RBC (3.80-5.40) m/uL Hgb (11.4-16.0) gm/dL Hct (34.0-46.0) % MCV (80.0-100.0) fL MCH (25.0-35.0) pg MCHC (31.0-37.0) g/dL RDW (11.5-15.5) % Plt Count (150-450) k/uL Neutrophils % % Lymphocytes % % Monocytes % % Eosinophils % % Basophils % % Neutrophils # (1.3-7.7) k/uL Lymphocytes # (1.0-4.8) k/uL Monocytes # (0-1.0) k/uL Eosinophils # (0-0.7) k/uL Basophils # (0-0.2) k/uL Sodium 140 (137-145) mmol/L Potassium 3.6 (3.5-5.1) mmol/L Chloride 104 (98-107) mmol/L Carbon Dioxide 22 (22-30) mmol/L Anion Gap 14 mmol/L BUN 13 (7-17) mg/dL Creatinine 0.72 (0.52-1.04) mg/dL Est GFR (CKD-EPI)AfAm >90 (>60 ml/min/1.73 sqM) Est GFR (CKD-EPI)NonAf >90 (>60 ml/min/1.73 sqM) Glucose 127 H (74-99) mg/dL Calcium 9.7 (8.4-10.2) mg/dL Total Bilirubin 0.3 (0.2-1.3) mg/dL AST 19 (14-36) U/L ALT 22 (9-52) U/L Alkaline Phosphatase 67 (38-126) U/L Total Protein 7.8 (6.3-8.2) g/dL Albumin 4.9 (3.5-5.0) g/dL Lipase 411 H (23-300) U/L Urine Color Urine Appearance (Clear) Urine pH (5.0-8.0) Ur Specific [place] (1.001-1.035) Urine Protein (Negative) Urine Glucose (UA) (Negative) Urine Ketones (Negative) Urine Blood (Negative) Urine Nitrite (Negative) Urine Bilirubin (Negative) Urine Urobilinogen (<2.0) mg/dL Ur Leukocyte Esterase (Negative) Urine RBC (0-5) /hpf Urine WBC (0-5) /hpf Ur Squamous Epith Cells (0-4) /hpf Urine Mucus (None) /hpf Urine HCG, Qual (Not Detectd) Disposition Clinical Impression: Dehydration, Nausea & vomiting Disposition: HOME SELF-CARE Condition: Stable Instructions (If sedation given, give patient instructions): Acute Nausea and Vomiting (ED) Additional Instructions: Please follow-up with your primary care doctor in 2-4 days. Please also follow up with the GI doctor within one week. Return to the emergency room for any new or worsening symptoms Prescriptions: Ondansetron Odt [Zofran Odt] 4 mg PO Q8HR PRN #15 tab PRN Reason: Nausea Is patient prescribed a controlled substance at d/c from ED?: No Referrals: None,Stated [Primary Care Provider] - 1-2 days Leona Osorio MD [STAFF PHYSICIAN] - 1-2 days Time of Disposition: 16:21
[2019-01-14] MEDS ORDERED: KETOROLAC 30 MG/ML 1 ML VIAL IVP STA (16:39)
[2019-01-14 16:48] VITALS: BP 107/72; PULSE 88
== END 2019-01-14 16:48 | disposition home or self-care (01) ==
LOC: EC 12:56
DX: E86.0 Dehydration (principal); R11.2 Nausea with vomiting, unspecified; R74.8 Abnormal levels of other serum enzymes; R61 Generalized hyperhidrosis; R10.84 Generalized abdominal pain; Z87.891 Personal history of nicotine dependence; Z87.19 Personal history of other diseases of the digestive system; Z98.890 Other specified postprocedural states; Z53.20 Procedure and treatment not carried out because of patient's decision for unspecified reasons
CPT/HCPCS: 36415; 80053; 83690; 85025; 81001; 81025; 74018; 99284; 96374; 96375 ×3; 96361 ×3; J1200; J2765; J2405; J1885

== ENCOUNTER 2019-02-26 13:14 | Emergency (ER) | payer OTHER ==
[2019-02-26 13:28] VITALS: BP 126/59; PULSE 61; RESP 18; TEMP 98.3
[2019-02-26] MEDS ORDERED: SODIUM CHLORIDE 0.9% 2,000 ML IV STA (13:33)
[2019-02-26] MEDS ORDERED: METOCLOPRAMIDE 5 MG/ML 2 ML VIAL IVP STA (13:33)
[2019-02-26] MEDS ORDERED: KETOROLAC 30 MG/ML 1 ML VIAL IVP STA (13:33)
[2019-02-26] MEDS ORDERED: diphenhydrAMINE 50 MG/ML 1 ML VIAL IVP STA (13:33)
--- NOTE | 2019-02-26 14:03 | ED ---
Nausea/Vomiting/Diarrhea HPI - General Chief complaint: Nausea/Vomiting/Diarrhea Stated complaint: Nausea Time Seen by Provider: 02/26/19 13:28 Source: patient, family, RN notes reviewed Mode of arrival: ambulatory Limitations: no limitations - History of Present Illness Initial comments: This a 23-year-old female presents emergency Department chief complaint nausea vomiting diarrhea. Patient states symptoms started last night after eating some [employer] pizza. Patient reportedly has had multiple episodes after eating [employer] states that she has not even while and states that she denies any symptoms return. Patient had a prior Shobha fundoplication. Patient states she feels dehydrated. She tried some at home antibiotics with no relief. Reports no fevers or chills. No sick contacts. Patient denies any localized abdominal pain no chest pain or shortness breath denies any chance . - Related Data Previous Rx's Medication Instructions Recorded Ondansetron Odt [Zofran Odt] 4 mg PO Q8HR PRN #15 tab 01/14/19 Allergies Allergy/AdvReac Type Severity Reaction Status Date / Time No Known Allergies Allergy Verified 02/26/19 13:28 Review of Systems ROS Statement: Those systems with pertinent positive or pertinent negative responses have been documented in the HPI. ROS Other: All systems not noted in ROS Statement are negative. Past Medical History Past Medical History: GERD/Reflux Additional Past Medical History / Comment(s): MIGRAINES, BACK PAIN History of Any Multi-Drug Resistant Organisms: None Reported Past Surgical History: Hernia Repair Past Anesthesia/Blood Transfusion Reactions: Motion Sickness Additional Past Anesthesia/Blood Transfusion Reaction / Comment(s): NO ANESTHESIA HX Past Psychological History: No Psychological Hx Reported Smoking Status: Former smoker Past Alcohol Use History: None Reported Past Drug Use History: Marijuana - Past Family History Mother Family Medical History: No Reported History General Exam Limitations: no limitations General appearance: alert, in no apparent distress Head exam: Present: atraumatic, normocephalic, normal inspection Neck exam: Present: normal inspection, full ROM. Absent: tenderness, meningismus, lymphadenopathy Respiratory exam: Present: normal lung sounds bilaterally. Absent: respiratory distress, wheezes, rales, rhonchi, stridor Cardiovascular Exam: Present: regular rate, normal rhythm, normal heart sounds. Absent: systolic murmur, diastolic murmur, rubs, gallop, clicks GI/Abdominal exam: Present: soft, tenderness (Mild diffuse), normal bowel sounds. Absent: distended, guarding, rebound, rigid Back exam: Absent: CVA tenderness (R), CVA tenderness (L) Skin exam: Present: warm, dry, intact, normal color. Absent: rash Course Vital Signs 02/26/19 13:24 Temperature 98.3 F Pulse Rate 61 Respiratory 18 Rate Blood Pressure 126/59 O2 Sat by Pulse 100 Oximetry Medical Decision Making - Medical Decision Making Labs are essentially unremarkable along with urinalysis. Patient is had recurrent issues after eating pizza multiple times. She is advised to avoid pizza, she is to follow-up with her surgeon that she's had a [place] location the past. She does have Zofran and Reglan at home. She feels comfortable with discharge. - Lab Data Result diagrams: 02/26/19 14:00 02/26/19 14:00 Lab Results 02/26/19 02/26/19 02/26/19 Range/Units 14:00 14:00 14:00 WBC 9.5 (3.8-10.6) k/uL RBC 4.42 (3.80-5.40) m/uL Hgb 13.5 (11.4-16.0) gm/dL Hct 38.6 (34.0-46.0) % MCV 87.4 (80.0-100.0) fL MCH 30.6 (25.0-35.0) pg MCHC 35.0 (31.0-37.0) g/dL RDW 12.5 (11.5-15.5) % Plt Count 213 (150-450) k/uL Neutrophils % 90 % Lymphocytes % 8 % Monocytes % 1 % Eosinophils % 0 % Basophils % 0 % Neutrophils # 8.6 H (1.3-7.7) k/uL Lymphocytes # 0.7 L (1.0-4.8) k/uL Monocytes # 0.1 (0-1.0) k/uL Eosinophils # 0.0 (0-0.7) k/uL Basophils # 0.0 (0-0.2) k/uL Sodium 142 (137-145) mmol/L Potassium 4.1 (3.5-5.1) mmol/L Chloride 109 H (98-107) mmol/L Carbon Dioxide 23 (22-30) mmol/L Anion Gap 10 mmol/L BUN 10 (7-17) mg/dL Creatinine 0.59 (0.52-1.04) mg/dL Est GFR (CKD-EPI)AfAm >90 (>60 ml/min/1.73 sqM) Est GFR (CKD-EPI)NonAf >90 (>60 ml/min/1.73 sqM) Glucose 168 H (74-99) mg/dL Calcium 9.5 (8.4-10.2) mg/dL Total Bilirubin 0.4 (0.2-1.3) mg/dL AST 20 (14-36) U/L ALT 18 (9-52) U/L Alkaline Phosphatase 65 (38-126) U/L Total Protein 7.2 (6.3-8.2) g/dL Albumin 4.5 (3.5-5.0) g/dL Amylase 145 H (30-110) U/L Urine Color Yellow Urine Appearance Turbid H (Clear) Urine pH 5.0 (5.0-8.0) Ur Specific [place] 1.033 (1.001-1.035) Urine Protein Trace H (Negative) Urine Glucose (UA) 3+ H (Negative) Urine Ketones Negative (Negative) Urine Blood Negative (Negative) Urine Nitrite Negative (Negative) Urine Bilirubin Negative (Negative) Urine Urobilinogen <2.0 (<2.0) mg/dL Ur Leukocyte Esterase Negative (Negative) Urine RBC 1 (0-5) /hpf Urine WBC 6 H (0-5) /hpf Ur Squamous Epith Cells 12 H (0-4) /hpf Amorphous Sediment Many H (None) /hpf Urine Mucus Many H (None) /hpf Disposition Clinical Impression: Gastroenteritis Disposition: HOME SELF-CARE Condition: Stable Instructions (If sedation given, give patient instructions): Acute Nausea and Vomiting (ED) Additional Instructions: Please return to the Emergency Department if symptoms worsen or any other concerns. Is patient prescribed a controlled substance at d/c from ED?: No Referrals: None,Stated [Primary Care Provider] - 1-2 days Time of Disposition: 14:55
[2019-02-26 14:31] LABS: Basophils % (A) 0 %; Eosinophils % (A) 0 %; HCT 38.6 % (34.0-46.0); HGB 13.5 gm/dL (11.4-16.0); Lymphocytes # (A) 0.7 k/uL (1.0-4.8); Lymphocytes % (A) 8 %; MCH 30.6 pg (25.0-35.0); MCV 87.4 fL (80.0-100.0); Mean Platelet Volume 7.4; Monocytes # (A) 0.1 k/uL (0-1.0); Monocytes % (A) 1 %; Neutrophils # (A) 8.6 k/uL (1.3-7.7); Neutrophils % (A) 90 %; Platelet Count 213 k/uL (150-450); RBC 4.42 m/uL (3.80-5.40); RDW 12.5 % (11.5-15.5); WBC 9.5 k/uL (3.8-10.6)
[2019-02-26 14:40] LABS: ALT 18 U/L (9-52); AST 20 U/L (14-36); African American GFR (CKD) >90 (>60 ml/min/1.73 sqM); Albumin 4.5 g/dL (3.5-5.0); Alkaline Phosphatase 65 U/L (38-126); Amylase 145 U/L (30-110); Anion Gap 10 mmol/L; Blood Urea Nitrogen 10 mg/dL (7-17); Calcium 9.5 mg/dL (8.4-10.2); Carbon Dioxide 23 mmol/L (22-30); Chloride 109 mmol/L (98-107); Glucose 168 mg/dL (74-99); Non-African American GFR(CKD) >90 (>60 ml/min/1.73 sqM); Potassium 4.1 mmol/L (3.5-5.1); Sodium 142 mmol/L (137-145); Total Bilirubin 0.4 mg/dL (0.2-1.3); Total Protein 7.2 g/dL (6.3-8.2)
[2019-02-26 14:47] LABS: Amorphous Sediment,Urine Many /hpf; Appearance,Urine Turbid (Clear); Bilirubin,Urine Negative (Negative); Blood,Urine Negative (Negative); Color,Urine Yellow; Glucose,Urine (UA) 3+ (Negative); Ketones,Urine Negative (Negative); Leukocyte Esterase,Urine Negative (Negative); Mucus,Urine Many /hpf; Nitrite,Urine Negative (Negative); Protein,Urine Trace (Negative); RBC,Urine 1 /hpf (0-5); Specific Gravity,Urine 1.033 (1.001-1.035); Squamous Epithelial Cell,Urine 12 /hpf (0-4); Urobilinogen,Urine <2.0 mg/dL (<2.0); WBC,Urine 6 /hpf (0-5)
[2019-02-26] MEDS ORDERED: ONDANSETRON 4 MG/2 ML VIAL IVP STA (14:54)
== END 2019-02-26 15:18 | disposition home or self-care (01) ==
LOC: EC 13:14
DX: K52.9 Noninfective gastroenteritis and colitis, unspecified (principal); E86.0 Dehydration; Z87.891 Personal history of nicotine dependence; Z98.890 Other specified postprocedural states
CPT/HCPCS: 36415; 80053; 82150; 85025; 81001; 81025; 99284; 96374; 96375 ×3; 96361; J1200; J2765; J2405; J1885

== ENCOUNTER 2019-05-27 07:38 | Emergency (ER) | payer OTHER ==
[2019-05-27 07:47] VITALS: RESP 18; TEMP 99.3
[2019-05-27] MEDS ORDERED: SODIUM CHLORIDE 0.9% 2,000 ML IV STA (08:00)
[2019-05-27] MEDS ORDERED: METOCLOPRAMIDE 5 MG/ML 2 ML VIAL IVP STA (08:00)
[2019-05-27] MEDS ORDERED: diphenhydrAMINE 50 MG/ML 1 ML VIAL IVP STA (08:00)
[2019-05-27] MEDS ORDERED: KETOROLAC 30 MG/ML 1 ML VIAL IVP STA (08:00)
--- NOTE | 2019-05-27 08:09 | ED ---
Nausea/Vomiting/Diarrhea HPI - General Chief complaint: Nausea/Vomiting/Diarrhea Stated complaint: vomiting Time Seen by Provider: 05/27/19 07:55 Source: patient, RN notes reviewed Mode of arrival: ambulatory Limitations: no limitations - History of Present Illness Initial comments: This a 23-year-old female presents emergency Department with chief complaint of nausea vomiting. Patient states this started 24 hours ago. She has had issues with this in the past with no acute findings. She states that she tried some medications at home. Patient denies any chance . Denies any significant diarrhea, constipation, fever, chills, chest pain or shortness of breath. Patient offers no other complaints. - Related Data Previous Rx's Medication Instructions Recorded Ondansetron Odt [Zofran Odt] 4 mg PO Q8HR PRN #15 tab 01/14/19 Ondansetron Odt [Zofran Odt] 4 mg PO Q8HR PRN #10 tab 05/27/19 Allergies Allergy/AdvReac Type Severity Reaction Status Date / Time No Known Allergies Allergy Verified 05/27/19 07:44 Review of Systems ROS Statement: Those systems with pertinent positive or pertinent negative responses have been documented in the HPI. ROS Other: All systems not noted in ROS Statement are negative. Past Medical History Past Medical History: GERD/Reflux Additional Past Medical History / Comment(s): MIGRAINES, BACK PAIN History of Any Multi-Drug Resistant Organisms: None Reported Past Surgical History: Hernia Repair Past Anesthesia/Blood Transfusion Reactions: Motion Sickness Additional Past Anesthesia/Blood Transfusion Reaction / Comment(s): NO ANESTHESIA HX Past Psychological History: No Psychological Hx Reported Smoking Status: Current every day smoker Past Alcohol Use History: None Reported Past Drug Use History: Marijuana - Past Family History Mother Family Medical History: No Reported History General Exam Limitations: no limitations General appearance: alert, in no apparent distress Head exam: Present: atraumatic, normocephalic, normal inspection Eye exam: Present: normal appearance, PERRL, EOMI. Absent: scleral icterus, conjunctival injection, periorbital swelling ENT exam: Present: normal exam, normal oropharynx, mucous membranes moist Neck exam: Present: normal inspection, full ROM. Absent: tenderness, meningismus, lymphadenopathy Respiratory exam: Present: normal lung sounds bilaterally. Absent: respiratory distress, wheezes, rales, rhonchi, stridor Cardiovascular Exam: Present: regular rate, normal rhythm, normal heart sounds. Absent: systolic murmur, diastolic murmur, rubs, gallop, clicks GI/Abdominal exam: Present: soft, tenderness (Minimal), normal bowel sounds. Absent: distended, guarding, rebound, rigid Back exam: Absent: CVA tenderness (R), CVA tenderness (L) Neurological exam: Present: alert Skin exam: Present: warm, dry, intact, normal color. Absent: rash Course Vital Signs 05/27/19 07:44 Temperature 99.3 F Pulse Rate 83 Respiratory 18 Rate Blood Pressure 130/80 O2 Sat by Pulse 97 Oximetry - Reevaluation(s) Reevaluation #1: 05/27/19 08:31 Patient was reevaluated and updated on results. Patient's is resting comfortably in bed, has no symptoms of nausea abdomen is soft, nontender. Medical Decision Making - Medical Decision Making Patient presented for nausea vomiting labs reviewed showed mild dehydration. Patient is angry improved after IV hydration, antiemetics. Patient had recurrent issues with this will be advised to follow-up with her surgeon who did her knee some provocation. Return parameters were discussed. - Lab Data Result diagrams: 05/27/19 08:00 05/27/19 08:00 Lab Results 05/27/19 05/27/19 05/27/19 Range/Units 08:00 08:00 08:00 WBC 8.9 (3.8-10.6) k/uL RBC 4.84 (3.80-5.40) m/uL Hgb 14.3 (11.4-16.0) gm/dL Hct 41.5 (34.0-46.0) % MCV 85.7 (80.0-100.0) fL MCH 29.5 (25.0-35.0) pg MCHC 34.4 (31.0-37.0) g/dL RDW 12.1 (11.5-15.5) % Plt Count 292 (150-450) k/uL Neutrophils % 83 % Lymphocytes % 10 % Monocytes % 5 % Eosinophils % 0 % Basophils % 0 % Neutrophils # 7.4 (1.3-7.7) k/uL Lymphocytes # 0.9 L (1.0-4.8) k/uL Monocytes # 0.5 (0-1.0) k/uL Eosinophils # 0.0 (0-0.7) k/uL Basophils # 0.0 (0-0.2) k/uL Sodium 142 (137-145) mmol/L Potassium 3.7 (3.5-5.1) mmol/L Chloride 105 (98-107) mmol/L Carbon Dioxide 19 L (22-30) mmol/L Anion Gap 18 mmol/L BUN 23 H (7-17) mg/dL Creatinine 0.79 (0.52-1.04) mg/dL Est GFR (CKD-EPI)AfAm >90 (>60 ml/min/1.73 sqM) Est GFR (CKD-EPI)NonAf >90 (>60 ml/min/1.73 sqM) Glucose 153 H (74-99) mg/dL Calcium 10.2 (8.4-10.2) mg/dL Total Bilirubin 0.8 (0.2-1.3) mg/dL AST 25 (14-36) U/L ALT 22 (4-34) U/L Alkaline Phosphatase 85 (38-126) U/L Total Protein 9.0 H (6.3-8.2) g/dL Albumin 5.5 H (3.5-5.0) g/dL Amylase 60 (30-110) U/L Lipase 46 (23-300) U/L Urine Color Urine Appearance (Clear) Urine pH (5.0-8.0) Ur Specific [place] (1.001-1.035) Urine Protein (Negative) Urine Glucose (UA) (Negative) Urine Ketones (Negative) Urine Blood (Negative) Urine Nitrite (Negative) Urine Bilirubin (Negative) Urine Urobilinogen (<2.0) mg/dL Ur Leukocyte Esterase (Negative) Urine RBC (0-5) /hpf Urine WBC (0-5) /hpf Ur Squamous Epith Cells (0-4) /hpf Amorphous Sediment (None) /hpf Urine Mucus (None) /hpf Urine HCG, Qual Not Detected (Not Detectd) 05/27/19 Range/Units 08:00 WBC (3.8-10.6) k/uL RBC (3.80-5.40) m/uL Hgb (11.4-16.0) gm/dL Hct (34.0-46.0) % MCV (80.0-100.0) fL MCH (25.0-35.0) pg MCHC (31.0-37.0) g/dL RDW (11.5-15.5) % Plt Count (150-450) k/uL Neutrophils % % Lymphocytes % % Monocytes % % Eosinophils % % Basophils % % Neutrophils # (1.3-7.7) k/uL Lymphocytes # (1.0-4.8) k/uL Monocytes # (0-1.0) k/uL Eosinophils # (0-0.7) k/uL Basophils # (0-0.2) k/uL Sodium (137-145) mmol/L Potassium (3.5-5.1) mmol/L Chloride (98-107) mmol/L Carbon Dioxide (22-30) mmol/L Anion Gap mmol/L BUN (7-17) mg/dL Creatinine (0.52-1.04) mg/dL Est GFR (CKD-EPI)AfAm (>60 ml/min/1.73 sqM) Est GFR (CKD-EPI)NonAf (>60 ml/min/1.73 sqM) Glucose (74-99) mg/dL Calcium (8.4-10.2) mg/dL Total Bilirubin (0.2-1.3) mg/dL AST (14-36) U/L ALT (4-34) U/L Alkaline Phosphatase (38-126) U/L Total Protein (6.3-8.2) g/dL Albumin (3.5-5.0) g/dL Amylase (30-110) U/L Lipase (23-300) U/L Urine Color Yellow Urine Appearance Cloudy H (Clear) Urine pH 5.5 (5.0-8.0) Ur Specific [place] 1.027 (1.001-1.035) Urine Protein 1+ H (Negative) Urine Glucose (UA) Negative (Negative) Urine Ketones 1+ H (Negative) Urine Blood Small H (Negative) Urine Nitrite Negative (Negative) Urine Bilirubin Negative (Negative) Urine Urobilinogen <2.0 (<2.0) mg/dL Ur Leukocyte Esterase Small H (Negative) Urine RBC 2 (0-5) /hpf Urine WBC 9 H (0-5) /hpf Ur Squamous Epith Cells 8 H (0-4) /hpf Amorphous Sediment Rare H (None) /hpf Urine Mucus Moderate H (None) /hpf Urine HCG, Qual (Not Detectd) Disposition Clinical Impression: Nausea & vomiting Disposition: HOME SELF-CARE Condition: Stable Instructions (If sedation given, give patient instructions): Acute Nausea and Vomiting (ED) Additional Instructions: Please return to the Emergency Department if symptoms worsen or any other concerns. Prescriptions: Ondansetron Odt [Zofran Odt] 4 mg PO Q8HR PRN #10 tab PRN Reason: Nausea Is patient prescribed a controlled substance at d/c from ED?: No Referrals: None,Stated [Primary Care Provider] - 1-2 days Time of Disposition: 08:33
[2019-05-27 08:24] LABS: ALT 22 U/L (4-34); AST 25 U/L (14-36); African American GFR (CKD) >90 (>60 ml/min/1.73 sqM); Albumin 5.5 g/dL (3.5-5.0); Alkaline Phosphatase 85 U/L (38-126); Amylase 60 U/L (30-110); Anion Gap 18 mmol/L; Blood Urea Nitrogen 23 mg/dL (7-17); Calcium 10.2 mg/dL (8.4-10.2); Carbon Dioxide 19 mmol/L (22-30); Chloride 105 mmol/L (98-107); Glucose 153 mg/dL (74-99); Non-African American GFR(CKD) >90 (>60 ml/min/1.73 sqM); Potassium 3.7 mmol/L (3.5-5.1); Sodium 142 mmol/L (137-145); Total Bilirubin 0.8 mg/dL (0.2-1.3)
[2019-05-27 08:25] LABS: Basophils % (A) 0 %; Eosinophils % (A) 0 %; HCT 41.5 % (34.0-46.0); HGB 14.3 gm/dL (11.4-16.0); Lymphocytes # (A) 0.9 k/uL (1.0-4.8); Lymphocytes % (A) 10 %; MCH 29.5 pg (25.0-35.0); MCHC 34.4 g/dL (31.0-37.0); MCV 85.7 fL (80.0-100.0); Mean Platelet Volume 8.6; Monocytes # (A) 0.5 k/uL (0-1.0); Monocytes % (A) 5 %; Neutrophils # (A) 7.4 k/uL (1.3-7.7); Neutrophils % (A) 83 %; Platelet Count 292 k/uL (150-450); RBC 4.84 m/uL (3.80-5.40); RDW 12.1 % (11.5-15.5); WBC 8.9 k/uL (3.8-10.6)
[2019-05-27 08:27] LABS: Amorphous Sediment,Urine Rare /hpf; Appearance,Urine Cloudy (Clear); Bilirubin,Urine Negative (Negative); Blood,Urine Small (Negative); Color,Urine Yellow; Glucose,Urine (UA) Negative (Negative); Ketones,Urine 1+ (Negative); Leukocyte Esterase,Urine Small (Negative); Mucus,Urine Moderate /hpf; Nitrite,Urine Negative (Negative); PH, Urine 5.5 (5.0-8.0); Protein,Urine 1+ (Negative); RBC,Urine 2 /hpf (0-5); Specific Gravity,Urine 1.027 (1.001-1.035); Squamous Epithelial Cell,Urine 8 /hpf (0-4); Urobilinogen,Urine <2.0 mg/dL (<2.0); WBC,Urine 9 /hpf (0-5)
[2019-05-27 09:04] VITALS: BP 122/78; PULSE 80
== END 2019-05-27 09:00 | disposition home or self-care (01) ==
LOC: EC 07:38
DX: R11.2 Nausea with vomiting, unspecified (principal); E86.0 Dehydration; F17.200 Nicotine dependence, unspecified, uncomplicated
CPT/HCPCS: 99283; 96374; 96375 ×2; 96361; 36415; 80053; 82150; 83690; 85025; 81001; 81025; J1200; J2765; J1885

== ENCOUNTER 2019-07-06 09:06 | Emergency (ER) | payer OTHER ==
[2019-07-06 09:11] VITALS: RESP 18; TEMP 98.4
[2019-07-06] MEDS ORDERED: SODIUM CHLORIDE 0.9% 2,000 ML IV STA (09:19)
[2019-07-06] MEDS ORDERED: diphenhydrAMINE 50 MG/ML 1 ML VIAL IVP STA (09:19)
[2019-07-06] MEDS ORDERED: KETOROLAC 30 MG/ML 1 ML VIAL IVP STA (09:19)
[2019-07-06] MEDS ORDERED: METOCLOPRAMIDE 5 MG/ML 2 ML VIAL IVP STA (09:19)
--- NOTE | 2019-07-06 09:45 | ED ---
Nausea/Vomiting/Diarrhea HPI - General Chief complaint: Nausea/Vomiting/Diarrhea Stated complaint: NAUSEA VOMITING Time Seen by Provider: 07/06/19 09:12 Source: patient, RN notes reviewed Mode of arrival: ambulatory Limitations: no limitations - History of Present Illness Initial comments: 23-year-old female presents emergency Department chief complaint of nausea vomiting. Patient states symptoms started 3 days ago. Patient's had recurrent issues with this. Patient said no clear answer why this occurs. Patient denies any localized abdominal pain patient denies any chance no dysuria no hematuria. Patient denies any fever, chills, chest pain, shortness breath, cough or URI symptoms. - Related Data Previous Rx's Medication Instructions Recorded Ondansetron Odt [Zofran Odt] 4 mg PO Q8HR PRN #15 tab 01/14/19 Ondansetron Odt [Zofran Odt] 4 mg PO Q8HR PRN #10 tab 05/27/19 Famotidine [Pepcid] 20 mg PO BID #28 tablet 07/06/19 Ondansetron Odt [Zofran Odt] 4 mg PO Q8HR PRN #14 tab 07/06/19 Allergies Allergy/AdvReac Type Severity Reaction Status Date / Time No Known Allergies Allergy Verified 07/06/19 09:11 Review of Systems ROS Statement: Those systems with pertinent positive or pertinent negative responses have been documented in the HPI. ROS Other: All systems not noted in ROS Statement are negative. Past Medical History Past Medical History: GERD/Reflux Additional Past Medical History / Comment(s): MIGRAINES, BACK PAIN History of Any Multi-Drug Resistant Organisms: None Reported Past Surgical History: Hernia Repair Past Anesthesia/Blood Transfusion Reactions: Motion Sickness Additional Past Anesthesia/Blood Transfusion Reaction / Comment(s): NO ANESTHESIA HX Past Psychological History: No Psychological Hx Reported Smoking Status: Current every day smoker Past Alcohol Use History: None Reported Past Drug Use History: Marijuana - Past Family History Mother Family Medical History: No Reported History General Exam Limitations: no limitations General appearance: alert, in no apparent distress Head exam: Present: atraumatic, normocephalic, normal inspection Eye exam: Present: normal appearance, PERRL, EOMI. Absent: scleral icterus, conjunctival injection, periorbital swelling ENT exam: Present: normal exam, normal oropharynx, mucous membranes moist Neck exam: Present: normal inspection, full ROM. Absent: tenderness, meningismus, lymphadenopathy Respiratory exam: Present: normal lung sounds bilaterally. Absent: respiratory distress, wheezes, rales, rhonchi, stridor Cardiovascular Exam: Present: regular rate, normal rhythm, normal heart sounds. Absent: systolic murmur, diastolic murmur, rubs, gallop, clicks GI/Abdominal exam: Present: soft, normal bowel sounds. Absent: distended, t enderness, guarding, rebound, rigid Back exam: Absent: CVA tenderness (R), CVA tenderness (L) Neurological exam: Present: alert, oriented X3, CN II-XII intact Skin exam: Present: warm, dry, intact, normal color. Absent: rash Course Vital Signs 07/06/19 07/06/19 09:09 10:16 Temperature 98.4 F Pulse Rate 57 L 58 L Respiratory 18 18 Rate Blood Pressure 133/83 113/77 O2 Sat by Pulse 99 98 Oximetry Medical Decision Making - Medical Decision Making 20 for a female presented for nausea vomiting. This recurrent episode for her. Patient's lab work essentially unremarkable. Patient does have some blood noted on her urinalysis those related to her mental cycle. Patient was hydrated, given antiemetics will be discharged in stable condition - Lab Data Result diagrams: 07/06/19 09:30 07/06/19 09:30 Lab Results 07/06/19 07/06/19 07/06/19 Range/Units 09:30 09:30 09:30 WBC 8.6 (3.8-10.6) k/uL RBC 5.10 (3.80-5.40) m/uL Hgb 15.0 (11.4-16.0) gm/dL Hct 43.6 (34.0-46.0) % MCV 85.5 (80.0-100.0) fL MCH 29.5 (25.0-35.0) pg MCHC 34.5 (31.0-37.0) g/dL RDW 12.0 (11.5-15.5) % Plt Count 262 (150-450) k/uL Neutrophils % 71 % Lymphocytes % 22 % Monocytes % 5 % Eosinophils % 0 % Basophils % 0 % Neutrophils # 6.1 (1.3-7.7) k/uL Lymphocytes # 1.9 (1.0-4.8) k/uL Monocytes # 0.4 (0-1.0) k/uL Eosinophils # 0.0 (0-0.7) k/uL Basophils # 0.0 (0-0.2) k/uL Sodium (137-145) mmol/L Potassium (3.5-5.1) mmol/L Chloride (98-107) mmol/L Carbon Dioxide (22-30) mmol/L Anion Gap mmol/L BUN (7-17) mg/dL Creatinine (0.52-1.04) mg/dL Est GFR (CKD-EPI)AfAm (>60 ml/min/1.73 sqM) Est GFR (CKD-EPI)NonAf (>60 ml/min/1.73 sqM) Glucose (74-99) mg/dL Calcium (8.4-10.2) mg/dL Total Bilirubin (0.2-1.3) mg/dL AST (14-36) U/L ALT (4-34) U/L Alkaline Phosphatase (38-126) U/L Total Protein (6.3-8.2) g/dL Albumin (3.5-5.0) g/dL Amylase (30-110) U/L Lipase (23-300) U/L Urine Color Light Red Urine Appearance Cloudy H (Clear) Urine pH 6.0 (5.0-8.0) Ur Specific [place] 1.030 (1.001-1.035) Urine Protein 1+ H (Negative) Urine Glucose (UA) Negative (Negative) Urine Ketones 3+ H (Negative) Urine Blood Large H (Negative) Urine Nitrite Negative (Negative) Urine Bilirubin Negative (Negative) Urine Urobilinogen <2.0 (<2.0) mg/dL Ur Leukocyte Esterase Trace H (Negative) Urine RBC >182 H (0-5) /hpf Urine WBC 54 H (0-5) /hpf Ur Squamous Epith Cells 5 H (0-4) /hpf Urine Mucus Many H (None) /hpf Urine HCG, Qual Not Detected (Not Detectd) 07/06/19 Range/Units 09:30 WBC (3.8-10.6) k/uL RBC (3.80-5.40) m/uL Hgb (11.4-16.0) gm/dL Hct (34.0-46.0) % MCV (80.0-100.0) fL MCH (25.0-35.0) pg MCHC (31.0-37.0) g/dL RDW (11.5-15.5) % Plt Count (150-450) k/uL Neutrophils % % Lymphocytes % % Monocytes % % Eosinophils % % Basophils % % Neutrophils # (1.3-7.7) k/uL Lymphocytes # (1.0-4.8) k/uL Monocytes # (0-1.0) k/uL Eosinophils # (0-0.7) k/uL Basophils # (0-0.2) k/uL Sodium 137 (137-145) mmol/L Potassium 3.4 L (3.5-5.1) mmol/L Chloride 100 (98-107) mmol/L Carbon Dioxide 23 (22-30) mmol/L Anion Gap 14 mmol/L BUN 18 H (7-17) mg/dL Creatinine 0.68 (0.52-1.04) mg/dL Est GFR (CKD-EPI)AfAm >90 (>60 ml/min/1.73 sqM) Est GFR (CKD-EPI)NonAf >90 (>60 ml/min/1.73 sqM) Glucose 102 H (74-99) mg/dL Calcium 9.6 (8.4-10.2) mg/dL Total Bilirubin 0.9 (0.2-1.3) mg/dL AST 23 (14-36) U/L ALT 16 (4-34) U/L Alkaline Phosphatase 73 (38-126) U/L Total Protein 8.1 (6.3-8.2) g/dL Albumin 5.1 H (3.5-5.0) g/dL Amylase 68 (30-110) U/L Lipase 183 (23-300) U/L Urine Color Urine Appearance (Clear) Urine pH (5.0-8.0) Ur Specific [place] (1.001-1.035) Urine Protein (Negative) Urine Glucose (UA) (Negative) Urine Ketones (Negative) Urine Blood (Negative) Urine Nitrite (Negative) Urine Bilirubin (Negative) Urine Urobilinogen (<2.0) mg/dL Ur Leukocyte Esterase (Negative) Urine RBC (0-5) /hpf Urine WBC (0-5) /hpf Ur Squamous Epith Cells (0-4) /hpf Urine Mucus (None) /hpf Urine HCG, Qual (Not Detectd) Disposition Clinical Impression: Nausea & vomiting, Gastritis Disposition: HOME SELF-CARE Condition: Stable Instructions (If sedation given, give patient instructions): Acute Nausea and Vomiting (ED) Additional Instructions: Please return to the Emergency Department if symptoms worsen or any other concerns. Prescriptions: Famotidine [Pepcid] 20 mg PO BID #28 tablet Ondansetron Odt [Zofran Odt] 4 mg PO Q8HR PRN #14 tab PRN Reason: Nausea Is patient prescribed a controlled substance at d/c from ED?: No Referrals: None,Stated [Primary Care Provider] - 1-2 days Time of Disposition: 10:50
[2019-07-06 09:58] LABS: Basophils % (A) 0 %; Eosinophils % (A) 0 %; HCT 43.6 % (34.0-46.0); Lymphocytes # (A) 1.9 k/uL (1.0-4.8); Lymphocytes % (A) 22 %; MCH 29.5 pg (25.0-35.0); MCHC 34.5 g/dL (31.0-37.0); MCV 85.5 fL (80.0-100.0); Mean Platelet Volume 8.6; Monocytes # (A) 0.4 k/uL (0-1.0); Monocytes % (A) 5 %; Neutrophils # (A) 6.1 k/uL (1.3-7.7); Neutrophils % (A) 71 %; Platelet Count 262 k/uL (150-450); WBC 8.6 k/uL (3.8-10.6)
[2019-07-06 10:06] LABS: Appearance,Urine Cloudy (Clear); Bilirubin,Urine Negative (Negative); Blood,Urine Large (Negative); Color,Urine Light Red; Glucose,Urine (UA) Negative (Negative); Ketones,Urine 3+ (Negative); Leukocyte Esterase,Urine Trace (Negative); Mucus,Urine Many /hpf; Nitrite,Urine Negative (Negative); Protein,Urine 1+ (Negative); RBC,Urine >182 /hpf (0-5); Squamous Epithelial Cell,Urine 5 /hpf (0-4); Urobilinogen,Urine <2.0 mg/dL (<2.0); WBC,Urine 54 /hpf (0-5)
[2019-07-06 10:15] LABS: ALT 16 U/L (4-34); AST 23 U/L (14-36); African American GFR (CKD) >90 (>60 ml/min/1.73 sqM); Albumin 5.1 g/dL (3.5-5.0); Alkaline Phosphatase 73 U/L (38-126); Amylase 68 U/L (30-110); Anion Gap 14 mmol/L; Blood Urea Nitrogen 18 mg/dL (7-17); Calcium 9.6 mg/dL (8.4-10.2); Carbon Dioxide 23 mmol/L (22-30); Chloride 100 mmol/L (98-107); Glucose 102 mg/dL (74-99); Non-African American GFR(CKD) >90 (>60 ml/min/1.73 sqM); Potassium 3.4 mmol/L (3.5-5.1); Sodium 137 mmol/L (137-145); Total Bilirubin 0.9 mg/dL (0.2-1.3); Total Protein 8.1 g/dL (6.3-8.2)
[2019-07-06 10:18] VITALS: PULSE 58
[2019-07-06] MEDS ORDERED: ONDANSETRON 4 MG/2 ML VIAL IVP STA (10:26)
[2019-07-06] MEDS ORDERED: MAG HYDROX/AL HYDROX/SIMETH 30 ML, HYOSCYAMINE ELIXIR 10 ML PO STA ×2 (10:49)
[2019-07-06 10:59] VITALS: BP 117/78
== END 2019-07-06 11:11 | disposition home or self-care (01) ==
LOC: EC 09:06
DX: K29.70 Gastritis, unspecified, without bleeding (principal); F17.200 Nicotine dependence, unspecified, uncomplicated; Z87.19 Personal history of other diseases of the digestive system
CPT/HCPCS: 36415; 80053; 82150; 83690; 85025; 81001; 81025; 87086; 99284; 96374; 96375 ×3; 96361; J1200; J2765; J2405; J1885

== ENCOUNTER 2019-07-07 13:35 | Emergency (ER) | payer OTHER ==
[2019-07-07] MEDS ORDERED: PANTOPRAZOLE 40 MG/10 ML VIAL IVP STA (13:52)
[2019-07-07] MEDS ORDERED: ONDANSETRON 4 MG/2 ML VIAL IVP STA (13:52)
[2019-07-07] MEDS ORDERED: SODIUM CHLORIDE 0.9% 1,000 ML IV ONE (13:52)
[2019-07-07] MEDS ORDERED: MORPHINE SULFATE 4 MG/ML SYRINGE IVP STA (13:52)
--- NOTE | 2019-07-07 13:59 | ED ---
General Adult HPI - General Chief complaint: Nausea/Vomiting/Diarrhea Stated complaint: Vomiting Time Seen by Provider: 07/07/19 13:44 Source: patient, RN notes reviewed, old records reviewed Mode of arrival: ambulatory Limitations: no limitations - History of Present Illness Initial comments: 23-year-old female presents for evaluation of nausea and vomiting. This is a reevaluation. Patient was seen yesterday for nausea vomiting. She's had persistent vomiting over the past 24 hours. She's been seen on multiple occasions over the past several months with recurrent nausea vomiting. She was referred to yesterday neurology but has been unable to make an appointment or be seen by gastroenterology as far. She does report some upper abdominal pain associated with her nausea. No fever. She just recently finished her menstrual cycle. Denies dysuria or hematuria. Denies lower abdominal pain. She does admit to daily marijuana use. - Related Data Previous Rx's Medication Instructions Recorded Famotidine [Pepcid] 20 mg PO BID #28 tablet 07/06/19 Ondansetron Odt [Zofran Odt] 4 mg PO Q8HR PRN #14 tab 07/06/19 Allergies Allergy/AdvReac Type Severity Reaction Status Date / Time No Known Allergies Allergy Verified 07/07/19 14:48 Review of Systems ROS Statement: Those systems with pertinent positive or pertinent negative responses have been documented in the HPI. ROS Other: All systems not noted in ROS Statement are negative. Past Medical History Past Medical History: GERD/Reflux Additional Past Medical History / Comment(s): MIGRAINES, BACK PAIN History of Any Multi-Drug Resistant Organisms: None Reported Past Surgical History: Hernia Repair Past Anesthesia/Blood Transfusion Reactions: Motion Sickness Additional Past Anesthesia/Blood Transfusion Reaction / Comment(s): NO ANESTHESIA HX Past Psychological History: No Psychological Hx Reported Smoking Status: Current every day smoker Past Alcohol Use History: None Reported Past Drug Use History: Marijuana - Past Family History Mother Family Medical History: No Reported History General Exam Limitations: no limitations General appearance: alert, in no apparent distress Head exam: Present: atraumatic, normocephalic Eye exam: Present: normal appearance ENT exam: Present: mucous membranes dry Neck exam: Present: normal inspection. Absent: tenderness, meningismus Respiratory exam: Present: normal lung sounds bilaterally. Absent: respiratory distress, wheezes Cardiovascular Exam: Present: regular rate, normal rhythm GI/Abdominal exam: Present: soft, tenderness (Minimal epigastric tenderness.). Absent: distended, guarding, rebound Back exam: Present: normal inspection Neurological exam: Present: alert, oriented X3, CN II-XII intact. Absent: motor sensory deficit Skin exam: Present: warm, dry, intact. Absent: cyanosis, diaphoretic Course Vital Signs 07/07/19 13:38 Temperature 98.0 F Pulse Rate 64 Respiratory 16 Rate Blood Pressure 111/74 O2 Sat by Pulse 100 Oximetry Medical Decision Making - Medical Decision Making 23-year-old female with recurrent nausea and vomiting. I suspect this may be related to cannabis hyperemesis syndrome. She has had multiple ER visits with similar episodes. Today's visit is similar to previous episodes. She has stable vitals. Nonsurgical abdomen. Appears mildly dehydrated. She has a normal CBC, potassium 3.3 which is low. She is 3+ ketones in her urine consistent with dehydration and starvation ketosis. She is given IV fluids, symptomatic control. On reevaluation she is feeling somewhat better, she continues to have stable vitals. She's had no episodes of vomiting while in the emergency department. I did recommend that she follow up with gastroenterology and I strongly recommend that she abstain from marijuana use. Patient is agreeable. She will attempt to maintain oral hydration at home and return with worsening or changing symptoms. - Lab Data Result diagrams: 07/07/19 14:10 07/07/19 14:10 Lab Results 07/07/19 07/07/19 07/07/19 Range/Units 13:55 14:10 14:10 WBC 6.9 (3.8-10.6) k/uL RBC 4.64 (3.80-5.40) m/uL Hgb 13.3 (11.4-16.0) gm/dL Hct 39.9 (34.0-46.0) % MCV 86.0 (80.0-100.0) fL MCH 28.8 (25.0-35.0) pg MCHC 33.5 (31.0-37.0) g/dL RDW 12.0 (11.5-15.5) % Plt Count 237 (150-450) k/uL Neutrophils % 80 % Lymphocytes % 15 % Monocytes % 3 % Eosinophils % 0 % Basophils % 0 % Neutrophils # 5.5 (1.3-7.7) k/uL Lymphocytes # 1.0 (1.0-4.8) k/uL Monocytes # 0.2 (0-1.0) k/uL Eosinophils # 0.0 (0-0.7) k/uL Basophils # 0.0 (0-0.2) k/uL Sodium (137-145) mmol/L Potassium (3.5-5.1) mmol/L Chloride (98-107) mmol/L Carbon Dioxide (22-30) mmol/L Anion Gap mmol/L BUN (7-17) mg/dL Creatinine (0.52-1.04) mg/dL Est GFR (CKD-EPI)AfAm (>60 ml/min/1.73 sqM) Est GFR (CKD-EPI)NonAf (>60 ml/min/1.73 sqM) Glucose (74-99) mg/dL Calcium (8.4-10.2) mg/dL Total Bilirubin (0.2-1.3) mg/dL AST (14-36) U/L ALT (4-34) U/L Alkaline Phosphatase (38-126) U/L Total Protein (6.3-8.2) g/dL Albumin (3.5-5.0) g/dL Urine Color Yellow Urine Appearance Cloudy H (Clear) Urine pH 7.0 (5.0-8.0) Ur Specific [place] 1.021 (1.001-1.035) Urine Protein Trace H (Negative) Urine Glucose (UA) Negative (Negative) Urine Ketones 3+ H (Negative) Urine Blood Moderate H (Negative) Urine Nitrite Negative (Negative) Urine Bilirubin Negative (Negative) Urine Urobilinogen <2.0 (<2.0) mg/dL Ur Leukocyte Esterase Negative (Negative) Urine RBC 1 (0-5) /hpf Urine WBC 8 H (0-5) /hpf Ur Squamous Epith Cells 46 H (0-4) /hpf Amorphous Sediment Rare H (None) /hpf Urine Bacteria Rare H (None) /hpf Urine Mucus Moderate H (None) /hpf Urine Opiates Screen Not Detected (NotDetected) Ur Oxycodone Screen Not Detected (NotDetected) Urine Methadone Screen Not Detected (NotDetected) Ur Propoxyphene Screen Not Detected (NotDetected) Ur Barbiturates Screen Not Detected (NotDetected) U Tricyclic Antidepress Not Detected (NotDetected) Ur Phencyclidine Scrn Not Detected (NotDetected) Ur Amphetamines Screen Not Detected (NotDetected) U Methamphetamines Scrn Not Detected (NotDetected) U Benzodiazepines Scrn Not Detected (NotDetected) Urine Cocaine Screen Not Detected (NotDetected) U Marijuana (THC) Screen Detected H (NotDetected) 07/07/19 Range/Units 14:10 WBC (3.8-10.6) k/uL RBC (3.80-5.40) m/uL Hgb (11.4-16.0) gm/dL Hct (34.0-46.0) % MCV (80.0-100.0) fL MCH (25.0-35.0) pg MCHC (31.0-37.0) g/dL RDW (11.5-15.5) % Plt Count (150-450) k/uL Neutrophils % % Lymphocytes % % Monocytes % % Eosinophils % % Basophils % % Neutrophils # (1.3-7.7) k/uL Lymphocytes # (1.0-4.8) k/uL Monocytes # (0-1.0) k/uL Eosinophils # (0-0.7) k/uL Basophils # (0-0.2) k/uL Sodium 137 (137-145) mmol/L Potassium 3.3 L (3.5-5.1) mmol/L Chloride 103 (98-107) mmol/L Carbon Dioxide 21 L (22-30) mmol/L Anion Gap 13 mmol/L BUN 12 (7-17) mg/dL Creatinine 0.65 (0.52-1.04) mg/dL Est GFR (CKD-EPI)AfAm >90 (>60 ml/min/1.73 sqM) Est GFR (CKD-EPI)NonAf >90 (>60 ml/min/1.73 sqM) Glucose 106 H (74-99) mg/dL Calcium 9.1 (8.4-10.2) mg/dL Total Bilirubin 0.6 (0.2-1.3) mg/dL AST 19 (14-36) U/L ALT 15 (4-34) U/L Alkaline Phosphatase 65 (38-126) U/L Total Protein 7.4 (6.3-8.2) g/dL Albumin 4.6 (3.5-5.0) g/dL Urine Color Urine Appearance (Clear) Urine pH (5.0-8.0) Ur Specific [place] (1.001-1.035) Urine Protein (Negative) Urine Glucose (UA) (Negative) Urine Ketones (Negative) Urine Blood (Negative) Urine Nitrite (Negative) Urine Bilirubin (Negative) Urine Urobilinogen (<2.0) mg/dL Ur Leukocyte Esterase (Negative) Urine RBC (0-5) /hpf Urine WBC (0-5) /hpf Ur Squamous Epith Cells (0-4) /hpf Amorphous Sediment (None) /hpf Urine Bacteria (None) /hpf Urine Mucus (None) /hpf Urine Opiates Screen (NotDetected) Ur Oxycodone Screen (NotDetected) Urine Methadone Screen (NotDetected) Ur Propoxyphene Screen (NotDetected) Ur Barbiturates Screen (NotDetected) U Tricyclic Antidepress (NotDetected) Ur Phencyclidine Scrn (NotDetected) Ur Amphetamines Screen (NotDetected) U Methamphetamines Scrn (NotDetected) U Benzodiazepines Scrn (NotDetected) Urine Cocaine Screen (NotDetected) U Marijuana (THC) Screen (NotDetected) Disposition Clinical Impression: Nausea & vomiting, Dehydration Disposition: HOME SELF-CARE Condition: Fair Instructions (If sedation given, give patient instructions): Acute Nausea and Vomiting (ED) Is patient prescribed a controlled substance at d/c from ED?: No Referrals: None,Stated [Primary Care Provider] - 1-2 days Leona Osorio MD [STAFF PHYSICIAN] - 1-2 days Time of Disposition: 14:55
[2019-07-07 14:18] LABS: Basophils % (A) 0 %; Eosinophils % (A) 0 %; HCT 39.9 % (34.0-46.0); HGB 13.3 gm/dL (11.4-16.0); Lymphocytes % (A) 15 %; MCH 28.8 pg (25.0-35.0); MCHC 33.5 g/dL (31.0-37.0); Mean Platelet Volume 8.1; Monocytes # (A) 0.2 k/uL (0-1.0); Monocytes % (A) 3 %; Neutrophils # (A) 5.5 k/uL (1.3-7.7); Neutrophils % (A) 80 %; Platelet Count 237 k/uL (150-450); RBC 4.64 m/uL (3.80-5.40); WBC 6.9 k/uL (3.8-10.6)
[2019-07-07 14:27] LABS: ALT 15 U/L (4-34); AST 19 U/L (14-36); African American GFR (CKD) >90 (>60 ml/min/1.73 sqM); Albumin 4.6 g/dL (3.5-5.0); Alkaline Phosphatase 65 U/L (38-126); Anion Gap 13 mmol/L; Blood Urea Nitrogen 12 mg/dL (7-17); Calcium 9.1 mg/dL (8.4-10.2); Carbon Dioxide 21 mmol/L (22-30); Chloride 103 mmol/L (98-107); Glucose 106 mg/dL (74-99); Non-African American GFR(CKD) >90 (>60 ml/min/1.73 sqM); Potassium 3.3 mmol/L (3.5-5.1); Sodium 137 mmol/L (137-145); Total Bilirubin 0.6 mg/dL (0.2-1.3); Total Protein 7.4 g/dL (6.3-8.2)
[2019-07-07 14:29] LABS: Amorphous Sediment,Urine Rare /hpf; Appearance,Urine Cloudy (Clear); Bacteria,Urine Rare /hpf; Bilirubin,Urine Negative (Negative); Blood,Urine Moderate (Negative); Color,Urine Yellow; Glucose,Urine (UA) Negative (Negative); Ketones,Urine 3+ (Negative); Leukocyte Esterase,Urine Negative (Negative); Mucus,Urine Moderate /hpf; Nitrite,Urine Negative (Negative); Protein,Urine Trace (Negative); RBC,Urine 1 /hpf (0-5); Specific Gravity,Urine 1.021 (1.001-1.035); Squamous Epithelial Cell,Urine 46 /hpf (0-4); Urobilinogen,Urine <2.0 mg/dL (<2.0); WBC,Urine 8 /hpf (0-5)
[2019-07-07] MEDS ORDERED: POTASSIUM CHLORIDE ER 20 MEQ TAB.ER PO STA (14:33)
[2019-07-07 14:51] LABS: Amphetamine Screen,Urine Not Detected (NotDetected); Barbiturate Screen,Urine Not Detected (NotDetected); Benzodiazepines Screen,Urine Not Detected (NotDetected); Cocaine Screen,Urine Not Detected (NotDetected); Methadone Screen, Urine Not Detected (NotDetected); Opiate Screen,Urine Not Detected (NotDetected); Oxycodone Screen, Urine Not Detected (NotDetected); Phencyclidine Screen,Urine Not Detected (NotDetected); Tricyclic Antidepressant,Urine Not Detected (NotDetected); Urn Cannabinoid Scrn Detected (NotDetected)
[2019-07-07 15:17] VITALS: BP 103/54; PULSE 76; RESP 18; TEMP 98.2
== END 2019-07-07 15:15 | disposition home or self-care (01) ==
LOC: EC 13:35
DX: E86.0 Dehydration (principal); R11.2 Nausea with vomiting, unspecified; F17.200 Nicotine dependence, unspecified, uncomplicated
CPT/HCPCS: 36415; 80053; 85025; 81001; 80306; 99284; 96374; 96375 ×2; 96361; J2270; J2405; C9113

== ENCOUNTER 2019-12-12 12:12 | Emergency (ER) | payer OTHER ==
[2019-12-12] MEDS ORDERED: SODIUM CHLORIDE 0.9% 1,000 ML IV ONE (12:38)
[2019-12-12] MEDS ORDERED: ONDANSETRON 4 MG/2 ML VIAL IVP STA (13:25)
[2019-12-12 13:30] LABS: Basophils % (A) 0 %; Eosinophils % (A) 0 %; HCT 40.6 % (34.0-46.0); HGB 13.6 gm/dL (11.4-16.0); Lymphocytes # (A) 1.3 k/uL (1.0-4.8); Lymphocytes % (A) 15 %; MCH 28.7 pg (25.0-35.0); MCHC 33.4 g/dL (31.0-37.0); MCV 85.7 fL (80.0-100.0); Mean Platelet Volume 8.4; Monocytes # (A) 0.3 k/uL (0-1.0); Monocytes % (A) 4 %; Neutrophils # (A) 6.7 k/uL (1.3-7.7); Neutrophils % (A) 79 %; Platelet Count 225 k/uL (150-450); RBC 4.73 m/uL (3.80-5.40); WBC 8.5 k/uL (3.8-10.6)
[2019-12-12 13:43] LABS: ALT 15 U/L (4-34); AST 21 U/L (14-36); African American GFR (CKD) >90 (>60 ml/min/1.73 sqM); Albumin 4.8 g/dL (3.5-5.0); Alkaline Phosphatase 67 U/L (38-126); Anion Gap 11 mmol/L; Blood Urea Nitrogen 11 mg/dL (7-17); Calcium 9.7 mg/dL (8.4-10.2); Carbon Dioxide 23 mmol/L (22-30); Chloride 105 mmol/L (98-107); Glucose 103 mg/dL (74-99); Non-African American GFR(CKD) >90 (>60 ml/min/1.73 sqM); Potassium 3.5 mmol/L (3.5-5.1); Sodium 139 mmol/L (137-145); Total Bilirubin 0.6 mg/dL (0.2-1.3); Total Protein 7.7 g/dL (6.3-8.2)
[2019-12-12] MEDS ORDERED: ALPRAZolam 0.25 MG TAB PO STA (13:47)
[2019-12-12 13:49] LABS: Appearance,Urine Cloudy (Clear); Bacteria,Urine Rare /hpf; Bilirubin,Urine Negative (Negative); Blood,Urine Negative (Negative); Color,Urine Yellow; Glucose,Urine (UA) Negative (Negative); Ketones,Urine 2+ (Negative); Leukocyte Esterase,Urine Negative (Negative); Mucus,Urine Many /hpf; Nitrite,Urine Negative (Negative); PH, Urine 7.5 (5.0-8.0); Protein,Urine 1+ (Negative); RBC,Urine 2 /hpf (0-5); Specific Gravity,Urine 1.031 (1.001-1.035); Squamous Epithelial Cell,Urine 14 /hpf (0-4); WBC,Urine 6 /hpf (0-5)
--- NOTE | 2019-12-12 14:16 | XR ---
EXAMINATION TYPE: XR KUB DATE OF EXAM: 12/12/2019 COMPARISON: 01/14/2019 HISTORY: Pain TECHNIQUE: One view abdominal series FINDINGS: The osseous structures are intact. The bowel gas pattern is nonspecific. Tiny calcifications in the pelvis are too small to characterize but likely vascular.. IMPRESSION: 1. Nonspecific abdomen with no diagnostic evidence of obstruction.
--- NOTE | 2019-12-12 14:20 | ED ---
General Adult HPI - General Chief complaint: Nausea/Vomiting/Diarrhea Stated complaint: Vomiting Time Seen by Provider: 12/12/19 12:37 Source: patient Mode of arrival: ambulatory Limitations: no limitations - History of Present Illness Initial comments: 24-year-old female presenting for nausea vomiting. Patient states that after family states on Monday she had projectile vomiting. She went to the [facility] where she had labs drawn and was told she most likely had cyclic vomiting for marijuana and she is a smoker. Patient states she feels is related to something that she ate she denies diarrhea fevers or bloody stools. Patient states she feels dehydrated she denies a chest pain shortness of breath headache. Patient is no additional complaints upon arrival she appears well nontoxic. Pt states she is anxious. - Related Data Previous Rx's Medication Instructions Recorded Ondansetron Odt [Zofran Odt] 4 mg PO Q8HR PRN 4 Days #12 tab 12/12/19 Allergies Allergy/AdvReac Type Severity Reaction Status Date / Time No Known Allergies Allergy Verified 12/12/19 14:00 Review of Systems ROS Statement: Those systems with pertinent positive or pertinent negative responses have been documented in the HPI. ROS Other: All systems not noted in ROS Statement are negative. Past Medical History Past Medical History: GERD/Reflux Additional Past Medical History / Comment(s): MIGRAINES, BACK PAIN History of Any Multi-Drug Resistant Organisms: None Reported Past Surgical History: Hernia Repair Past Anesthesia/Blood Transfusion Reactions: Motion Sickness Additional Past Anesthesia/Blood Transfusion Reaction / Comment(s): NO ANESTHESIA HX Past Psychological History: No Psychological Hx Reported Smoking Status: Never smoker Past Alcohol Use History: None Reported Past Drug Use History: Marijuana - Past Family History Mother Family Medical History: No Reported History General Exam - General Exam Comments Initial Comments: General: The patient is awake and alert, in no distress, and does not appear acutely ill. Eye: Pupils are equal, round and reactive to light, extra-ocular movements are intact. No nystagmus. There is normal conjunctiva bilaterally. No signs of icterus. Cardiovascular: There is a regular rate and rhythm. No murmur, rub or gallop is appreciated. Respiratory: Lungs are clear to auscultation, respirations are non-labored, breath sounds are equal. No wheezes, stridor, rales, or rhonchi. Gastrointestinal: Soft, non-distended, non-tender abdomen without masses or organomegaly noted. There is no rebound or guarding present. Musculoskeletal: Normal ROM, no tenderness. Strength 5/5. Sensation intact. Pulses equal bilaterally 2+. Neurological: A&O x 3. CN II-XII intact grossly, There are no obvious motor or sensory deficits. Coordination appears grossly intact. Speech is normal. Skin: Skin is warm and dry and no rashes or lesions are noted. Psychiatric: Cooperative, appropriate mood & affect, normal judgment. Limitations: no limitations Course Vital Signs 12/12/19 12/12/19 12:34 14:26 Temperature 98.7 F 98.3 F Pulse Rate 66 69 Respiratory 17 18 Rate Blood Pressure 132/70 136/78 O2 Sat by Pulse 100 100 Oximetry Medical Decision Making - Medical Decision Making Labs stable. +2 ketones hydrated with IVF. tolerating ice chips in room. Patient symptoms improved with zofran, no active vomiting in the Er. Patient VS WNL she appears nontoxic with nonobstructive KUB pattern. Mickie will be discharged with ODT zofran and PCP f/u. Mickie is agreeable to this care plan and discharge. - Lab Data Result diagrams: 12/12/19 13:12 12/12/19 13:12 Lab Results 12/12/19 12/12/19 12/12/19 Range/Units 13:12 13:12 13:12 WBC 8.5 (3.8-10.6) k/uL RBC 4.73 (3.80-5.40) m/uL Hgb 13.6 (11.4-16.0) gm/dL Hct 40.6 (34.0-46.0) % MCV 85.7 (80.0-100.0) fL MCH 28.7 (25.0-35.0) pg MCHC 33.4 (31.0-37.0) g/dL RDW 12.0 (11.5-15.5) % Plt Count 225 (150-450) k/uL Neutrophils % 79 % Lymphocytes % 15 % Monocytes % 4 % Eosinophils % 0 % Basophils % 0 % Neutrophils # 6.7 (1.3-7.7) k/uL Lymphocytes # 1.3 (1.0-4.8) k/uL Monocytes # 0.3 (0-1.0) k/uL Eosinophils # 0.0 (0-0.7) k/uL Basophils # 0.0 (0-0.2) k/uL Sodium (137-145) mmol/L Potassium (3.5-5.1) mmol/L Chloride (98-107) mmol/L Carbon Dioxide (22-30) mmol/L Anion Gap mmol/L BUN (7-17) mg/dL Creatinine (0.52-1.04) mg/dL Est GFR (CKD-EPI)AfAm (>60 ml/min/1.73 sqM) Est GFR (CKD-EPI)NonAf (>60 ml/min/1.73 sqM) Glucose (74-99) mg/dL Calcium (8.4-10.2) mg/dL Total Bilirubin (0.2-1.3) mg/dL AST (14-36) U/L ALT (4-34) U/L Alkaline Phosphatase (38-126) U/L Total Protein (6.3-8.2) g/dL Albumin (3.5-5.0) g/dL Urine Color Yellow Urine Appearance Cloudy H (Clear) Urine pH 7.5 (5.0-8.0) Ur Specific [place] 1.031 (1.001-1.035) Urine Protein 1+ H (Negative) Urine Glucose (UA) Negative (Negative) Urine Ketones 2+ H (Negative) Urine Blood Negative (Negative) Urine Nitrite Negative (Negative) Urine Bilirubin Negative (Negative) Urine Urobilinogen 2.0 (<2.0) mg/dL Ur Leukocyte Esterase Negative (Negative) Urine RBC 2 (0-5) /hpf Urine WBC 6 H (0-5) /hpf Ur Squamous Epith Cells 14 H (0-4) /hpf Urine Bacteria Rare H (None) /hpf Urine Mucus Many H (None) /hpf Urine HCG, Qual Not Detected (Not Detectd) 12/12/19 Range/Units 13:12 WBC (3.8-10.6) k/uL RBC (3.80-5.40) m/uL Hgb (11.4-16.0) gm/dL Hct (34.0-46.0) % MCV (80.0-100.0) fL MCH (25.0-35.0) pg MCHC (31.0-37.0) g/dL RDW (11.5-15.5) % Plt Count (150-450) k/uL Neutrophils % % Lymphocytes % % Monocytes % % Eosinophils % % Basophils % % Neutrophils # (1.3-7.7) k/uL Lymphocytes # (1.0-4.8) k/uL Monocytes # (0-1.0) k/uL Eosinophils # (0-0.7) k/uL Basophils # (0-0.2) k/uL Sodium 139 (137-145) mmol/L Potassium 3.5 (3.5-5.1) mmol/L Chloride 105 (98-107) mmol/L Carbon Dioxide 23 (22-30) mmol/L Anion Gap 11 mmol/L BUN 11 (7-17) mg/dL Creatinine 0.68 (0.52-1.04) mg/dL Est GFR (CKD-EPI)AfAm >90 (>60 ml/min/1.73 sqM) Est GFR (CKD-EPI)NonAf >90 (>60 ml/min/1.73 sqM) Glucose 103 H (74-99) mg/dL Calcium 9.7 (8.4-10.2) mg/dL Total Bilirubin 0.6 (0.2-1.3) mg/dL AST 21 (14-36) U/L ALT 15 (4-34) U/L Alkaline Phosphatase 67 (38-126) U/L Total Protein 7.7 (6.3-8.2) g/dL Albumin 4.8 (3.5-5.0) g/dL Urine Color Urine Appearance (Clear) Urine pH (5.0-8.0) Ur Specific [place] (1.001-1.035) Urine Protein (Negative) Urine Glucose (UA) (Negative) Urine Ketones (Negative) Urine Blood (Negative) Urine Nitrite (Negative) Urine Bilirubin (Negative) Urine Urobilinogen (<2.0) mg/dL Ur Leukocyte Esterase (Negative) Urine RBC (0-5) /hpf Urine WBC (0-5) /hpf Ur Squamous Epith Cells (0-4) /hpf Urine Bacteria (None) /hpf Urine Mucus (None) /hpf Urine HCG, Qual (Not Detectd) Disposition Clinical Impression: Vomiting, Nausea Disposition: HOME SELF-CARE Condition: Good Instructions (If sedation given, give patient instructions): Acute Nausea and Vomiting (ED) Additional Instructions: Please use medication as discussed. Please follow-up with family doctor in the next 2 days. Please return to emergency room if the symptoms increase or worsen or for any other concerns. Prescriptions: Ondansetron Odt [Zofran Odt] 4 mg PO Q8HR PRN 4 Days #12 tab PRN Reason: Vomiting Is patient prescribed a controlled substance at d/c from ED?: No Referrals: None,Stated [Primary Care Provider] - 1-2 days [facility] [NON-STAFF] - 1-2 days Time of Disposition: 14:20
[2019-12-12 14:27] VITALS: BP 136/78; PULSE 69; RESP 18; TEMP 98.3
== END 2019-12-12 14:27 | disposition home or self-care (01) ==
LOC: EC 12:12
DX: R11.2 Nausea with vomiting, unspecified (principal)
CPT/HCPCS: 36415; 80053; 85025; 81001; 81025; 74018; 99284; 96374; 96361; J2405

== ENCOUNTER 2019-12-27 12:53 | Emergency (ER) | payer OTHER ==
[2019-12-27] MEDS ORDERED: ONDANSETRON 4 MG/2 ML VIAL IVP STA (13:23)
[2019-12-27] MEDS ORDERED: HYDROmorphone 0.5 MG/0.5 ML SYRINGE IVP STA (13:23)
[2019-12-27] MEDS ORDERED: LORazepam 2 MG/ML INJ IV STA (13:23)
[2019-12-27] MEDS ORDERED: SODIUM CHLORIDE 0.9% 1,000 ML IV ONE (13:23)
[2019-12-27] MEDS ORDERED: SODIUM CHLORIDE 0.9% 1,000 ML IV SCH (13:30)
[2019-12-27 14:14] LABS: Basophils % (A) 0 %; Eosinophils % (A) 0 %; HCT 44.4 % (34.0-46.0); HGB 14.5 gm/dL (11.4-16.0); Lymphocytes # (A) 0.7 k/uL (1.0-4.8); Lymphocytes % (A) 7 %; MCH 28.2 pg (25.0-35.0); MCHC 32.8 g/dL (31.0-37.0); MCV 86.1 fL (80.0-100.0); Mean Platelet Volume 8.3; Monocytes # (A) 0.2 k/uL (0-1.0); Monocytes % (A) 2 %; Neutrophils # (A) 8.6 k/uL (1.3-7.7); Neutrophils % (A) 90 %; Platelet Count 266 k/uL (150-450); RBC 5.15 m/uL (3.80-5.40); WBC 9.6 k/uL (3.8-10.6)
[2019-12-27 14:23] LABS: ALT 16 U/L (4-34); AST 26 U/L (14-36); African American GFR (CKD) >90 (>60 ml/min/1.73 sqM); Albumin 5.1 g/dL (3.5-5.0); Alkaline Phosphatase 73 U/L (38-126); Anion Gap 11 mmol/L; Blood Urea Nitrogen 10 mg/dL (7-17); Calcium 9.7 mg/dL (8.4-10.2); Carbon Dioxide 20 mmol/L (22-30); Chloride 107 mmol/L (98-107); Glucose 149 mg/dL (74-99); Non-African American GFR(CKD) >90 (>60 ml/min/1.73 sqM); Potassium 4.4 mmol/L (3.5-5.1); Sodium 138 mmol/L (137-145); Total Bilirubin 0.8 mg/dL (0.2-1.3)
[2019-12-27] MEDS ORDERED: PANTOPRAZOLE 40 MG/10 ML VIAL IVP STA (15:02)
[2019-12-27 15:09] VITALS: RESP 12
[2019-12-27] MEDS ORDERED: METOCLOPRAMIDE 5 MG/ML 2 ML VIAL IVP STA (15:10)
--- NOTE | 2019-12-27 15:11 | ED ---
Nausea/Vomiting/Diarrhea HPI - General Chief complaint: Nausea/Vomiting/Diarrhea Stated complaint: vomiting Time Seen by Provider: 12/27/19 13:22 Source: patient Mode of arrival: ambulatory Limitations: no limitations - History of Present Illness Initial comments: 24-year-old female presenting today for chief complaint of diffuse abdominal pain nausea vomiting. Patient states once a month that seems to happen. Send been happening for over 6 months. Patient states she typically presents to the other hospital [facility]. Patient states that the pain began last night as well as the nausea vomiting. She states she is not sure why this keeps happening. Patient states she does smoke marijuana. Patient denies any known diabetes. She denies any chest pain shortness of breath hemoptysis hematemesis dark stools. Denies , fevers. No localized pain. Patient states she has tried zofran at home. Remaining ROS (-) - Related Data Previous Rx's Medication Instructions Recorded Ondansetron Odt [Zofran Odt] 4 mg PO Q8HR PRN 4 Days #12 tab 12/12/19 Pantoprazole Sodium [Protonix] 20 mg PO DAILY 7 Days #7 tablet. 12/27/19 Allergies Allergy/AdvReac Type Severity Reaction Status Date / Time No Known Allergies Allergy Verified 12/27/19 13:14 Review of Systems ROS Statement: Those systems with pertinent positive or pertinent negative responses have been documented in the HPI. ROS Other: All systems not noted in ROS Statement are negative. Past Medical History Past Medical History: GERD/Reflux Additional Past Medical History / Comment(s): MIGRAINES, BACK PAIN History of Any Multi-Drug Resistant Organisms: None Reported Past Surgical History: Hernia Repair Past Anesthesia/Blood Transfusion Reactions: Motion Sickness Additional Past Anesthesia/Blood Transfusion Reaction / Comment(s): NO ANESTHESIA HX Past Psychological History: No Psychological Hx Reported Smoking Status: Never smoker Past Alcohol Use History: None Reported Past Drug Use History: Marijuana - Past Family History Mother Family Medical History: No Reported History General Exam - General Exam Comments Initial Comments: General: The patient is awake and alert, in no distress Eye: +3 mm pupils are equal, round and reactive to light, extra-ocular movements are intact. No nystagmus. There is normal conjunctiva bilaterally. No signs of icterus. Cardiovascular: There is a regular rate and rhythm. No murmur, rub or gallop is appreciated. Respiratory: Lungs are clear to auscultation, respirations are non-labored, breath sounds are equal. No wheezes, stridor, rales, or rhonchi. Gastrointestinal: Soft, non-distended, mild diffuse tenderness of the abdomen without masses or organomegaly noted. There is no rebound or guarding present. Musculoskeletal: Normal ROM, no tenderness. Strength 5/5. Sensation intact. Radial pulses equal bilaterally 2+. Neurological: A&O x 3. CN II-XII intact grossly, There are no obvious motor or sensory deficits. Coordination appears grossly intact. Speech is normal. Skin: Skin is warm and dry and no rashes or lesions are noted. Psychiatric: Cooperative, appropriate mood & affect, normal judgment. Limitations: no limitations Course Vital Signs 12/27/19 12/27/19 12/27/19 13:11 15:08 16:23 Temperature 97.8 F 98.8 F Pulse Rate 83 87 86 Respiratory 20 12 12 Rate Blood Pressure 119/85 98/61 113/69 O2 Sat by Pulse 99 100 100 Oximetry Medical Decision Making - Medical Decision Making 24yo female presenting today for cc of abdominal pain. vomiting, occurs nearly monthly same symptoms. Patient states began last night. Abdominal pain chronic, went away with pain medications, vomiting controlled in the Er. Patient labs reveal findings concerning for starvation ketosis. Patient hydrated, will be discharged as symptoms controlled can tolerate oral intake. But is to return for worsening symptoms or pain. Patient agreeable to care plan and discharge. Case discussed with Dr. Valera - Lab Data Result diagrams: 12/27/19 13:40 12/27/19 13:40 Lab Results 12/27/19 12/27/19 12/27/19 Range/Units 13:40 13:40 13:40 WBC 9.6 (3.8-10.6) k/uL RBC 5.15 (3.80-5.40) m/uL Hgb 14.5 (11.4-16.0) gm/dL Hct 44.4 (34.0-46.0) % MCV 86.1 (80.0-100.0) fL MCH 28.2 (25.0-35.0) pg MCHC 32.8 (31.0-37.0) g/dL RDW 12.0 (11.5-15.5) % Plt Count 266 (150-450) k/uL Neutrophils % 90 % Lymphocytes % 7 % Monocytes % 2 % Eosinophils % 0 % Basophils % 0 % Neutrophils # 8.6 H (1.3-7.7) k/uL Lymphocytes # 0.7 L (1.0-4.8) k/uL Monocytes # 0.2 (0-1.0) k/uL Eosinophils # 0.0 (0-0.7) k/uL Basophils # 0.0 (0-0.2) k/uL Sodium 138 (137-145) mmol/L Potassium 4.4 (3.5-5.1) mmol/L Chloride 107 (98-107) mmol/L Carbon Dioxide 20 L (22-30) mmol/L Anion Gap 11 mmol/L BUN 10 (7-17) mg/dL Creatinine 0.68 (0.52-1.04) mg/dL Est GFR (CKD-EPI)AfAm >90 (>60 ml/min/1.73 sqM) Est GFR (CKD-EPI)NonAf >90 (>60 ml/min/1.73 sqM) Glucose 149 H (74-99) mg/dL POC Glucose (mg/dL) (75-99) mg/dL POC Glu Compositor Apprentice ID Calcium 9.7 (8.4-10.2) mg/dL Total Bilirubin 0.8 (0.2-1.3) mg/dL AST 26 (14-36) U/L ALT 16 (4-34) U/L Alkaline Phosphatase 73 (38-126) U/L Total Protein 8.0 (6.3-8.2) g/dL Albumin 5.1 H (3.5-5.0) g/dL Urine Color Yellow Urine Appearance Clear (Clear) Urine pH 5.5 (5.0-8.0) Ur Specific [place] 1.027 (1.001-1.035) Urine Protein 1+ H (Negative) Urine Glucose (UA) 1+ H (Negative) Urine Ketones 4+ H (Negative) Urine Blood Large H (Negative) Urine Nitrite Negative (Negative) Urine Bilirubin Negative (Negative) Urine Urobilinogen <2.0 (<2.0) mg/dL Ur Leukocyte Esterase Trace H (Negative) Urine RBC >182 H (0-5) /hpf Urine WBC 7 H (0-5) /hpf Ur Squamous Epith Cells 1 (0-4) /hpf Urine Mucus Moderate H (None) /hpf Urine HCG, Qual (Not Detectd) Acetone, Qual (Negative) 12/27/19 12/27/19 12/27/19 Range/Units 13:40 15:33 16:11 WBC (3.8-10.6) k/uL RBC (3.80-5.40) m/uL Hgb (11.4-16.0) gm/dL Hct (34.0-46.0) % MCV (80.0-100.0) fL MCH (25.0-35.0) pg MCHC (31.0-37.0) g/dL RDW (11.5-15.5) % Plt Count (150-450) k/uL Neutrophils % % Lymphocytes % % Monocytes % % Eosinophils % % Basophils % % Neutrophils # (1.3-7.7) k/uL Lymphocytes # (1.0-4.8) k/uL Monocytes # (0-1.0) k/uL Eosinophils # (0-0.7) k/uL Basophils # (0-0.2) k/uL Sodium (137-145) mmol/L Potassium (3.5-5.1) mmol/L Chloride (98-107) mmol/L Carbon Dioxide (22-30) mmol/L Anion Gap mmol/L BUN (7-17) mg/dL Creatinine (0.52-1.04) mg/dL Est GFR (CKD-EPI)AfAm (>60 ml/min/1.73 sqM) Est GFR (CKD-EPI)NonAf (>60 ml/min/1.73 sqM) Glucose (74-99) mg/dL POC Glucose (mg/dL) 99 (75-99) mg/dL POC Glu Compositor Apprentice ID Colleen Dixon Calcium (8.4-10.2) mg/dL Total Bilirubin (0.2-1.3) mg/dL AST (14-36) U/L ALT (4-34) U/L Alkaline Phosphatase (38-126) U/L Total Protein (6.3-8.2) g/dL Albumin (3.5-5.0) g/dL Urine Color Urine Appearance (Clear) Urine pH (5.0-8.0) Ur Specific [place] (1.001-1.035) Urine Protein (Negative) Urine Glucose (UA) (Negative) Urine Ketones (Negative) Urine Blood (Negative) Urine Nitrite (Negative) Urine Bilirubin (Negative) Urine Urobilinogen (<2.0) mg/dL Ur Leukocyte Esterase (Negative) Urine RBC (0-5) /hpf Urine WBC (0-5) /hpf Ur Squamous Epith Cells (0-4) /hpf Urine Mucus (None) /hpf Urine HCG, Qual Not Detected (Not Detectd) Acetone, Qual Negative (Negative) Disposition Clinical Impression: Vomiting, Abdominal pain, Elevated glucose, Ketonuria Disposition: HOME SELF-CARE Condition: Good Instructions (If sedation given, give patient instructions): Acute Nausea and Vomiting (ED) Additional Instructions: Please use medication as discussed. Please follow-up with family doctor in the next 2 days. Please return to emergency room if the symptoms increase or worsen or for any other concerns. Prescriptions: Pantoprazole Sodium [Protonix] 20 mg PO DAILY 7 Days #7 tablet.dr Is patient prescribed a controlled substance at d/c from ED?: No Referrals: None,Stated [Primary Care Provider] - 1-2 days [facility] - 1-2 days Time of Disposition: 15:11
[2019-12-27 15:15] LABS: Appearance,Urine Clear (Clear); Bilirubin,Urine Negative (Negative); Blood,Urine Large (Negative); Color,Urine Yellow; Glucose,Urine (UA) 1+ (Negative); Leukocyte Esterase,Urine Trace (Negative); Mucus,Urine Moderate /hpf; Nitrite,Urine Negative (Negative); PH, Urine 5.5 (5.0-8.0); Protein,Urine 1+ (Negative); RBC,Urine >182 /hpf (0-5); Specific Gravity,Urine 1.027 (1.001-1.035); Squamous Epithelial Cell,Urine 1 /hpf (0-4); Urobilinogen,Urine <2.0 mg/dL (<2.0); WBC,Urine 7 /hpf (0-5)
[2019-12-27 15:20] LABS: Ketones,Urine 4+ (Negative)
[2019-12-27 16:13] LABS: Glucose,Whole Blood 99 mg/dL (75-99)
[2019-12-27 16:25] VITALS: BP 113/69; PULSE 86; TEMP 98.8
== END 2019-12-27 16:25 | disposition home or self-care (01) ==
LOC: EC 12:53
DX: R10.9 Unspecified abdominal pain (principal); R11.10 Vomiting, unspecified; R82.4 Acetonuria; R73.9 Hyperglycemia, unspecified
CPT/HCPCS: 36415; 80053; 82009; 85025; 81001; 81025; 99284; 96374; 96375 ×4; 96361; J2060; J2405; J1170

== ENCOUNTER 2020-02-10 01:51 | Emergency (ER) | payer OTHER ==
[2020-02-10] MEDS ORDERED: ONDANSETRON ODT 4 MG TAB PO STA (02:21)
[2020-02-10] MEDS ORDERED: SODIUM CHLORIDE 0.9% 1,000 ML IV STA ×2 (02:29→03:50)
[2020-02-10] MEDS ORDERED: METOCLOPRAMIDE 5 MG/ML 2 ML VIAL IVP STA ×2 (02:32→04:54)
[2020-02-10] MEDS ORDERED: diphenhydrAMINE 50 MG/ML 1 ML VIAL IVP STA ×2 (02:32→04:54)
[2020-02-10 02:43] LABS: Basophils # (A) 0.2 k/uL (0-0.2); Basophils % (A) 1 %; Eosinophils # (A) 0.2 k/uL (0-0.7); Eosinophils % (A) 2 %; HCT 44.3 % (34.0-46.0); HGB 14.9 gm/dL (11.4-16.0); Lymphocytes # (A) 0.9 k/uL (1.0-4.8); Lymphocytes % (A) 6 %; MCH 29.2 pg (25.0-35.0); MCHC 33.7 g/dL (31.0-37.0); MCV 86.7 fL (80.0-100.0); Mean Platelet Volume 7.8; Monocytes # (A) 0.4 k/uL (0-1.0); Monocytes % (A) 3 %; Neutrophils # (A) 12.4 k/uL (1.3-7.7); Neutrophils % (A) 88 %; Platelet Count 231 k/uL (150-450); RBC 5.11 m/uL (3.80-5.40); RDW 11.8 % (11.5-15.5); WBC 14.2 k/uL (3.8-10.6)
[2020-02-10 02:52] LABS: ALT 19 U/L (4-34); AST 24 U/L (14-36); African American GFR (CKD) >90 (>60 ml/min/1.73 sqM); Alkaline Phosphatase 73 U/L (38-126); Anion Gap 10 mmol/L; Blood Urea Nitrogen 10 mg/dL (7-17); Calcium 9.9 mg/dL (8.4-10.2); Carbon Dioxide 23 mmol/L (22-30); Chloride 105 mmol/L (98-107); Glucose 178 mg/dL (74-99); Lipase 228 U/L (23-300); Non-African American GFR(CKD) >90 (>60 ml/min/1.73 sqM); Potassium 3.9 mmol/L (3.5-5.1); Sodium 138 mmol/L (137-145); Total Bilirubin 0.7 mg/dL (0.2-1.3)
--- NOTE | 2020-02-10 03:43 | ED ---
URI HPI - General Chief Complaint: Upper Respiratory Infection Stated Complaint: Vomiting Time Seen by Provider: 02/10/20 03:43 Source: patient Mode of arrival: ambulatory Limitations: no limitations - History of Present Illness Initial Comments: Lexis is a 24-year-old female who presents the ER this morning for evaluation of URI-like symptoms as well as nausea and vomiting. Patient has a history of recurrent episodes of nausea and vomiting she has previously undergone surgery for treatment of hiatal hernia due to this. Patient presents the ER today with 2 days of upper respiratory infection type symptoms, her and her partner report that they ate something where today made her partner feel nauseated but made the patient started vomiting. Patient has had persistent vomiting since mid day despite taking her home Zofran. the patient's partner was exposed to COVID 19 at workbecame symptomatic approximately 4 days ago, patient is concerned she may have COVID 19. - Related Data Previous Rx's Medication Instructions Recorded Ondansetron Odt [Zofran Odt] 4 mg PO Q8HR PRN 4 Days #12 tab 12/12/19 Pantoprazole Sodium [Protonix] 20 mg PO DAILY 7 Days #7 tablet. 12/27/19 Allergies Allergy/AdvReac Type Severity Reaction Status Date / Time No Known Allergies Allergy Verified 02/10/20 02:01 Review of Systems ROS Statement: Those systems with pertinent positive or pertinent negative responses have been documented in the HPI. ROS Other: All systems not noted in ROS Statement are negative. Past Medical History Past Medical History: GERD/Reflux Additional Past Medical History / Comment(s): MIGRAINES, BACK PAIN History of Any Multi-Drug Resistant Organisms: None Reported Past Surgical History: Hernia Repair Past Anesthesia/Blood Transfusion Reactions: Motion Sickness Additional Past Anesthesia/Blood Transfusion Reaction / Comment(s): NO ANESTHESIA HX Past Psychological History: No Psychological Hx Reported Smoking Status: Never smoker Past Alcohol Use History: None Reported Past Drug Use History: Marijuana - Past Family History Mother Family Medical History: No Reported History General Exam - General Exam Comments Initial Comments: physical exam was performed by Cl MAGUIRE Physical Exam GENERAL: patient was standing over vomit basin vomiting upon initial evaluation HENT: Normocephalic, Atraumatic. EYES: PERRL, EOMI PULMONARY: Unlabored respirations. CARDIOVASCULAR: RRR Warm and well perfused extremities ABDOMEN: Non-distended SKIN: No rashes or bruising : Deferred NEUROLOGIC: Alert and oriented Normal speech Normal gait MUSCULOSKELETAL: Moving all extremities with no apparent injury PSYCHIATRIC: No SI/HI Limitations: no limitations Course Vital Signs 02/10/20 02/10/20 02/10/20 01:57 02:17 04:40 Temperature 98 F 97.9 F Pulse Rate 92 71 Respiratory 18 20 18 Rate Blood Pressure 140/86 127/60 O2 Sat by Pulse 98 95 Oximetry Medical Decision Making - Medical Decision Making The patient was seen and evaluated history was obtained from patient and partner bedside Patient has a history of significant episodes of vomiting but also has concern for exposure over 19 she's had body aches and URI symptoms for 2 days Labs are obtained Patient received multiple antiemetics including oral and IV Zofran as well as Reglan and Benadryl Labs have mild leukocytosis with neutrophilia lymphopenia which can be seen with any viral illness was specifically seen COVID 19 Rapid COVID was negative, however this wasn't nasal swab not nasopharyngeal and I suspect it could be a false negative Patient received ProtonixAn additional IV fluids Patient asking to leave stating that she feels like she is doing better after getting rehydrated would like to be discharged home, states she feels she'll be okay with her home Zofran - Lab Data Result diagrams: 02/10/20 02:29 02/10/20 02:29 Lab Results 02/10/20 02/10/20 02/10/20 Range/Units 02:12 02:15 02:29 WBC 14.2 H (3.8-10.6) k/uL RBC 5.11 (3.80-5.40) m/uL Hgb 14.9 (11.4-16.0) gm/dL Hct 44.3 (34.0-46.0) % MCV 86.7 (80.0-100.0) fL MCH 29.2 (25.0-35.0) pg MCHC 33.7 (31.0-37.0) g/dL RDW 11.8 (11.5-15.5) % Plt Count 231 (150-450) k/uL Neutrophils % 88 % Lymphocytes % 6 % Monocytes % 3 % Eosinophils % 2 % Basophils % 1 % Neutrophils # 12.4 H (1.3-7.7) k/uL Lymphocytes # 0.9 L (1.0-4.8) k/uL Monocytes # 0.4 (0-1.0) k/uL Eosinophils # 0.2 (0-0.7) k/uL Basophils # 0.2 (0-0.2) k/uL Sodium (137-145) mmol/L Potassium (3.5-5.1) mmol/L Chloride (98-107) mmol/L Carbon Dioxide (22-30) mmol/L Anion Gap mmol/L BUN (7-17) mg/dL Creatinine (0.52-1.04) mg/dL Est GFR (CKD-EPI)AfAm (>60 ml/min/1.73 sqM) Est GFR (CKD-EPI)NonAf (>60 ml/min/1.73 sqM) Glucose (74-99) mg/dL Calcium (8.4-10.2) mg/dL Total Bilirubin (0.2-1.3) mg/dL AST (14-36) U/L ALT (4-34) U/L Alkaline Phosphatase (38-126) U/L Total Protein (6.3-8.2) g/dL Albumin (3.5-5.0) g/dL Lipase (23-300) U/L Urine HCG, Qual Not Detected (Not Detectd) Coronavirus (PCR) Not Detected (Not Detectd) 02/10/20 Range/Units 02:29 WBC (3.8-10.6) k/uL RBC (3.80-5.40) m/uL Hgb (11.4-16.0) gm/dL Hct (34.0-46.0) % MCV (80.0-100.0) fL MCH (25.0-35.0) pg MCHC (31.0-37.0) g/dL RDW (11.5-15.5) % Plt Count (150-450) k/uL Neutrophils % % Lymphocytes % % Monocytes % % Eosinophils % % Basophils % % Neutrophils # (1.3-7.7) k/uL Lymphocytes # (1.0-4.8) k/uL Monocytes # (0-1.0) k/uL Eosinophils # (0-0.7) k/uL Basophils # (0-0.2) k/uL Sodium 138 (137-145) mmol/L Potassium 3.9 (3.5-5.1) mmol/L Chloride 105 (98-107) mmol/L Carbon Dioxide 23 (22-30) mmol/L Anion Gap 10 mmol/L BUN 10 (7-17) mg/dL Creatinine 0.71 (0.52-1.04) mg/dL Est GFR (CKD-EPI)AfAm >90 (>60 ml/min/1.73 sqM) Est GFR (CKD-EPI)NonAf >90 (>60 ml/min/1.73 sqM) Glucose 178 H (74-99) mg/dL Calcium 9.9 (8.4-10.2) mg/dL Total Bilirubin 0.7 (0.2-1.3) mg/dL AST 24 (14-36) U/L ALT 19 (4-34) U/L Alkaline Phosphatase 73 (38-126) U/L Total Protein 8.0 (6.3-8.2) g/dL Albumin 5.0 (3.5-5.0) g/dL Lipase 228 (23-300) U/L Urine HCG, Qual (Not Detectd) Coronavirus (PCR) (Not Detectd) Disposition Clinical Impression: Upper respiratory tract infection, Exposure to COVID-19 virus Disposition: HOME SELF-CARE Condition: Stable Additional Instructions: Coronavirus (COVID-19) Discharge Instructions You were diagnosed with exposure to novel Coronavirus, known as COVID-19. It is a viral illness that can cause fever, cough and trouble breathing. Some people may have chills, muscle aches, runny nose, sneezing, sore throat, upset stomach or loose stool. When do I need to call the doctor? Call your doctor if your breathing is getting worse (harder or faster than be fore or you feel like you are getting less air). Some people start to feel worse in the second week of their illness, if you start to feel worse at any time in your illness, please call your doctor, who will tell you where to go to be seen. If you can, put on a facemask before leaving home or before you enter the clinic or hospital. Get medical attention right away if you develop emergency warning signs of COVID-19 such as: trouble breathing, chest pain or pressure that does not go away, new confusion or not able to wake up, bluish lips or face. Precautions at home The virus is spread easily through tiny droplets when you cough or sneeze. You should take these steps to help prevent the disease from spreading to people in your home and community 1. Self-isolate at home As advised by the Centers for Disease Control and Prevention (CDC), we ask you to stay in your home and limit contact with others to avoid spreading this virus. Stay home except to go to the doctor Do not go to work, school, or public areas, except for getting medical care. Avoid using public transportation (such as buses), ride-sharing, or taxis. If you have an upcoming doctor appointment, call the office and tell them that you have COVID-19. Separate yourself from other people and animals in your home. Avoid touching other people, including handshaking. As much as you can, stay in a specific room and away from other people in your home. You should also use a separate bathroom, if available. Avoid sharing personal household items. You should not share dishes, drinking glasses, cups, eating utensils, towels, toothpaste, or bedding with other people or pets in your home. After using these items, they should be washed well with soap and water. Do not handle pets or other animals while sick. 2. Clean and disinfect Clean all high-touch surfaces every day. High-touch surfaces include counters, tabletops, doorknobs, bathroom fixtures, toilets, phones, keyboards, tablets, and bedside tables. Clean any surfaces that may have blood, stool, or body fluids on them. Use a household cleaning spray or wipe, according to the label instructions. Labels contain instructions for safe and effective use of the cleaning product including precautions you should take when applying the product, such as wearing gloves and making sure you have good air flow in the room during use of the product. Wash laundry. Remove and wash clothes or bedding that have blood, stool, or body fluids on them and then wash your hands right away 3. Help stop the spread Clean your hands often. Wash your hands with soap and water for at least 20 seconds. OR Use an alcohol-based hand vegetable farm manager that contains at least 60% alcohol, covering all surfaces of your hands and rubbing them together until they feel dry. Wash your hands after blowing your nose, coughing, or sneezing; going to the bathroom, and before eating or preparing food. Avoid touching your eyes, nose, and mouth with unwashed hands. Cover your coughs and sneezes. Cover your mouth and nose with a tissue when you cough or sneeze. Throw used tissues in a lined trash can; clean your hands right away. Wear a facemask You should wear a facemask when you are around other people (e.g., sharing a room or vehicle) or pets and before you enter a healthcare providers office. 4. Notify your close contacts People that you live with should self-isolate for 14 days AFTER your self- isolation period ends. Other close contacts such as caretakers and intimate partners should self- isolate for 14 days AFTER your last contact with them. Your close contacts should self-monitor for symptoms by checking their temperature twice a day and watching for fever, cough, or shortness of breath. They should contact their doctor if they develop symptoms of COVID-19. They should also clean hands often and avoid touching eyes, nose, and mouth with unwashed hands. They should wear a mask if they have to be in the same room as you if you are not able to wear one. When can I stop precautions at home? Your doctor will tell you which criteria to follow below (Symptom-based criteria) You can stop isolating yourself when both of these things have happened: You have had no fever for at least 24 hours (that is one full day of no fever without the use of medicine that reduces fevers) AND Other symptoms have improved (for example, when your cough or shortness of breath have improved) AND At least 10 days have passed since your symptoms first started. OR (Time-based criteria) You can stop isolating yourself when both of these things have happened: You never develop symptoms of COVID19 AND At least 10 days have passed since your first started positive test OR (Extended Symptom-based criteria for severe illness) You can stop isolating yourself when both of these things have happened: You have had no fever for at least 24 hours (that is one full day of no fever without the use of medicine that reduces fevers) AND Other symptoms have improved (for example, when your cough or shortness of breath have improved) AND At least 20 days have passed since your symptoms first started. (Extended Time-based criteria for severe immunocompromised) You can stop isolating yourself when both of these things have happened: You never develop symptoms of COVID19 AND At least 20 days have passed since your first positive test OR (Test-based criteria) You can stop isolating yourself when both of these things have happened: You have had no fever for at least 24 hours (that is one full day of no fever without the use of medicine that reduces fevers) AND Other symptoms have improved (for example, when your cough or shortness of breath have improved) AND You have two negative repeat tests for COVID19 Manage your stress and anxiety Being ill can be stressful or cause anxiety. Remember that everyone reacts differently to stressful situations. Being ill with COVID-19 might be especially stressful because it is a new disease and there is a lot of news coverage. Take breaks from watching, reading, or listening to news stories, including social media. People with preexisting mental conditions should continue their treatment and be aware of new or worsening symptoms. If you, or someone you care about, are feeling overwhelmed with emotions like sadness, depression, or anxiety, call the Substance Abuse and Mental Health Services Administrations (SAMHSAs) Disaster Distress Helpline: [place] [address]. (TTY ) Is patient prescribed a controlled substance at d/c from ED?: No Referrals: None,Stated [Primary Care Provider] - 1-2 days
--- NOTE | 2020-02-10 03:48 | XR ---
EXAM: XR Chest, 2 Views CLINICAL HISTORY: Cough. TECHNIQUE: Frontal and lateral views of the chest. COMPARISON: The lungs are well aerated. FINDINGS: Lungs: No consolidative change. Pleural space: No pleural effusion. No pneumothorax. Heart: Cardiomediastinal silhouette unremarkable. Mediastinum: See above. Bones/joints: Ribs are grossly unremarkable. Very gentle levoscoliosis of the thoracic spine. Soft tissues: There is suggestion of projection of the nipple shadow at the left lung base. IMPRESSION: 1. Density at the left lung base most likely the nipple shadow. Repeat AP view the chest with nipple markers is advised. 2. No active disease detected otherwise.
[2020-02-10] MEDS ORDERED: ONDANSETRON 4 MG/2 ML VIAL IVP STA (03:50)
[2020-02-10 04:41] VITALS: BP 127/60; PULSE 71; RESP 18; TEMP 97.9
[2020-02-10] MEDS ORDERED: PANTOPRAZOLE 40 MG/10 ML VIAL IVP STA (04:54)
== END 2020-02-10 06:20 | disposition home or self-care (01) ==
LOC: EC 01:51
DX: J06.9 Acute upper respiratory infection, unspecified (principal); D72.829 Elevated white blood cell count, unspecified; D72.810 Lymphocytopenia; Z20.828 Contact with and (suspected) exposure to other viral communicable diseases
CPT/HCPCS: 36415; 80053; 83690; 85025; 81025; 87635; 71046; 99283; 96374; 96375 ×3; 96376; 96361 ×2; J1200; J2765; J2405; C9113

== ENCOUNTER 2020-02-10 15:06 | Emergency (ER) | payer OTHER ==
[2020-02-10 15:12] VITALS: RESP 18
[2020-02-10] MEDS ORDERED: SODIUM CHLORIDE 0.9% 2,000 ML IV STA (16:09)
[2020-02-10] MEDS ORDERED: diphenhydrAMINE 50 MG/ML 1 ML VIAL IVP STA ×2 (16:09→18:12)
[2020-02-10] MEDS ORDERED: PROMETHAZINE INJ 25 MG in SODIUM CHLORIDE 0.9% 50 ML IVPB STA (16:11)
--- NOTE | 2020-02-10 16:39 | ED ---
General Adult HPI - General Chief complaint: Nausea/Vomiting/Diarrhea Stated complaint: Vomiting/sob +covid Time Seen by Provider: 02/10/20 15:54 Source: patient, RN notes reviewed Mode of arrival: ambulatory Limitations: no limitations - History of Present Illness Initial comments: this a 24-year-old female presents emergency Department with chief complaint of nausea vomiting abdominal discomfort. Patient has recurrent chronic issues with this. Patient states started yesterday. Patient did have slight cough and which her friend had similar symptoms. She states she had covid She reports subjective fever. Denies any chest pain, shortness breath, localized abdominal pain. She states she had mild diarrhea no dysuria no hematuria denies any c nelly .d testing yesterday with no positive result. - Related Data Previous Rx's Medication Instructions Recorded Ondansetron Odt [Zofran Odt] 4 mg PO Q8HR PRN 4 Days #12 tab 12/12/19 Pantoprazole Sodium [Protonix] 20 mg PO DAILY 7 Days #7 tablet. 12/27/19 Metoclopramide [Reglan] 10 mg PO TID PRN #15 tab 02/10/20 Allergies Allergy/AdvReac Type Severity Reaction Status Date / Time No Known Allergies Allergy Verified 02/10/20 15:13 Review of Systems ROS Statement: Those systems with pertinent positive or pertinent negative responses have been documented in the HPI. ROS Other: All systems not noted in ROS Statement are negative. Past Medical History Past Medical History: GERD/Reflux Additional Past Medical History / Comment(s): MIGRAINES, BACK PAIN History of Any Multi-Drug Resistant Organisms: None Reported Past Surgical History: Hernia Repair Past Anesthesia/Blood Transfusion Reactions: Motion Sickness Additional Past Anesthesia/Blood Transfusion Reaction / Comment(s): NO ANESTHESIA HX Past Psychological History: No Psychological Hx Reported Smoking Status: Never smoker Past Alcohol Use History: None Reported Past Drug Use History: Marijuana - Past Family History Mother Family Medical History: No Reported History General Exam Limitations: no limitations General appearance: alert, in no apparent distress Head exam: Present: atraumatic, normocephalic, normal inspection Eye exam: Present: normal appearance, PERRL, EOMI. Absent: scleral icterus, conjunctival injection, periorbital swelling ENT exam: Present: normal exam, normal oropharynx, mucous membranes moist, TM's normal bilaterally Neck exam: Present: normal inspection, full ROM. Absent: tenderness, meningismus, lymphadenopathy Respiratory exam: Present: normal lung sounds bilaterally. Absent: respiratory distress, wheezes, rales, rhonchi, stridor Cardiovascular Exam: Present: regular rate, normal rhythm, normal heart sounds. Absent: systolic murmur, diastolic murmur, rubs, gallop, clicks Back exam: Absent: CVA tenderness (R), CVA tenderness (L) Neurological exam: Present: alert, oriented X3 Skin exam: Present: warm, dry, intact, normal color. Absent: rash Course Vital Signs 02/10/20 02/10/20 15:08 18:35 Temperature 98.1 F 99.1 F Pulse Rate 88 84 Respiratory 18 18 Rate Blood Pressure 118/78 118/69 O2 Sat by Pulse 97 100 Oximetry Medical Decision Making - Medical Decision Making patient did results, rest and comfortably, states that she does feel improved. Patient does have moderate dehydration, patient has recurrent nausea vomiting. Chest x-ray and labs unremarkable. - Lab Data Result diagrams: 02/10/20 16:58 02/10/20 16:58 Lab Results 02/10/20 02/10/20 02/10/20 Range/Units 16:58 16:58 17:06 WBC 13.8 H (3.8-10.6) k/uL RBC 4.29 (3.80-5.40) m/uL Hgb 12.7 (11.4-16.0) gm/dL Hct 37.4 (34.0-46.0) % MCV 87.1 (80.0-100.0) fL MCH 29.6 (25.0-35.0) pg MCHC 34.0 (31.0-37.0) g/dL RDW 11.9 (11.5-15.5) % Plt Count 202 (150-450) k/uL Neutrophils % 89 % Lymphocytes % 5 % Monocytes % 5 % Eosinophils % 0 % Basophils % 0 % Neutrophils # 12.3 H (1.3-7.7) k/uL Lymphocytes # 0.6 L (1.0-4.8) k/uL Monocytes # 0.7 (0-1.0) k/uL Eosinophils # 0.1 (0-0.7) k/uL Basophils # 0.0 (0-0.2) k/uL Sodium 139 (137-145) mmol/L Potassium 3.9 (3.5-5.1) mmol/L Chloride 109 H (98-107) mmol/L Carbon Dioxide 19 L (22-30) mmol/L Anion Gap 11 mmol/L BUN 8 (7-17) mg/dL Creatinine 0.52 (0.52-1.04) mg/dL Est GFR (CKD-EPI)AfAm >90 (>60 ml/min/1.73 sqM) Est GFR (CKD-EPI)NonAf >90 (>60 ml/min/1.73 sqM) Glucose 125 H (74-99) mg/dL Calcium 9.2 (8.4-10.2) mg/dL Total Bilirubin 0.6 (0.2-1.3) mg/dL AST 26 (14-36) U/L ALT 16 (4-34) U/L Alkaline Phosphatase 62 (38-126) U/L Total Protein 7.5 (6.3-8.2) g/dL Albumin 4.5 (3.5-5.0) g/dL Lipase 178 (23-300) U/L Urine Color Yellow Urine Appearance Clear (Clear) Urine pH 6.0 (5.0-8.0) Ur Specific [place] 1.031 (1.001-1.035) Urine Protein 1+ H (Negative) Urine Glucose (UA) 2+ H (Negative) Urine Ketones 4+ H (Negative) Urine Blood Small H (Negative) Urine Nitrite Negative (Negative) Urine Bilirubin Negative (Negative) Urine Urobilinogen <2.0 (<2.0) mg/dL Ur Leukocyte Esterase Negative (Negative) Urine RBC 4 (0-5) /hpf Urine WBC 3 (0-5) /hpf Ur Squamous Epith Cells 2 (0-4) /hpf Urine Mucus Many H (None) /hpf Disposition Clinical Impression: Upper respiratory tract infection, Nausea & vomiting, Dehydration Disposition: ADMITTED IP TO THIS [facility] Instructions (If sedation given, give patient instructions): Acute Nausea and Vomiting (ED) Additional Instructions: Please return to the Emergency Department if symptoms worsen or any other concerns. Prescriptions: Metoclopramide [Reglan] 10 mg PO TID PRN #15 tab PRN Reason: GERD Is patient prescribed a controlled substance at d/c from ED?: No Referrals: None,Stated [Primary Care Provider] - 1-2 days Time of Disposition: 18:47
[2020-02-10 17:26] LABS: Basophils % (A) 0 %; Eosinophils # (A) 0.1 k/uL (0-0.7); Eosinophils % (A) 0 %; HCT 37.4 % (34.0-46.0); HGB 12.7 gm/dL (11.4-16.0); Lymphocytes # (A) 0.6 k/uL (1.0-4.8); Lymphocytes % (A) 5 %; MCH 29.6 pg (25.0-35.0); MCV 87.1 fL (80.0-100.0); Mean Platelet Volume 8.2; Monocytes # (A) 0.7 k/uL (0-1.0); Monocytes % (A) 5 %; Neutrophils # (A) 12.3 k/uL (1.3-7.7); Neutrophils % (A) 89 %; Platelet Count 202 k/uL (150-450); RBC 4.29 m/uL (3.80-5.40); RDW 11.9 % (11.5-15.5); WBC 13.8 k/uL (3.8-10.6)
[2020-02-10 17:31] LABS: Appearance,Urine Clear (Clear); Bilirubin,Urine Negative (Negative); Blood,Urine Small (Negative); Color,Urine Yellow; Glucose,Urine (UA) 2+ (Negative); Leukocyte Esterase,Urine Negative (Negative); Mucus,Urine Many /hpf; Nitrite,Urine Negative (Negative); Protein,Urine 1+ (Negative); RBC,Urine 4 /hpf (0-5); Specific Gravity,Urine 1.031 (1.001-1.035); Squamous Epithelial Cell,Urine 2 /hpf (0-4); Urobilinogen,Urine <2.0 mg/dL (<2.0); WBC,Urine 3 /hpf (0-5)
[2020-02-10 17:35] LABS: ALT 16 U/L (4-34); AST 26 U/L (14-36); African American GFR (CKD) >90 (>60 ml/min/1.73 sqM); Albumin 4.5 g/dL (3.5-5.0); Alkaline Phosphatase 62 U/L (38-126); Anion Gap 11 mmol/L; Blood Urea Nitrogen 8 mg/dL (7-17); Calcium 9.2 mg/dL (8.4-10.2); Carbon Dioxide 19 mmol/L (22-30); Chloride 109 mmol/L (98-107); Glucose 125 mg/dL (74-99); Lipase 178 U/L (23-300); Non-African American GFR(CKD) >90 (>60 ml/min/1.73 sqM); Potassium 3.9 mmol/L (3.5-5.1); Sodium 139 mmol/L (137-145); Total Bilirubin 0.6 mg/dL (0.2-1.3); Total Protein 7.5 g/dL (6.3-8.2)
[2020-02-10 17:42] LABS: Ketones,Urine 4+ (Negative)
--- NOTE | 2020-02-10 17:52 | XR ---
EXAMINATION TYPE: XR chest 2V DATE OF EXAM: 02/10/2020 COMPARISON: Today HISTORY: Nausea and vomiting. Cough TECHNIQUE: FINDINGS: Heart and mediastinum are normal. Lungs are clear. Diaphragm is normal. Bony thorax appears normal. IMPRESSION: Normal chest. No change.
[2020-02-10] MEDS ORDERED: METOCLOPRAMIDE 5 MG/ML 2 ML VIAL IVP STA (18:12)
[2020-02-10 20:20] VITALS: BP 121/73; PULSE 98; TEMP 99.2
== END 2020-02-10 20:18 | disposition other institution (70) ==
LOC: EC 15:06
DX: J06.9 Acute upper respiratory infection, unspecified (principal); R11.2 Nausea with vomiting, unspecified; E86.0 Dehydration
CPT/HCPCS: 36415; 80053; 83690; 85025; 81001; 71046; 99284; 96365; 96375 ×2; 96376; 96361 ×2; J1200; J2550; J2765

== ENCOUNTER 2021-01-20 17:31 | Emergency (ER) | payer OTHER ==
[2021-01-20] MEDS ORDERED: SODIUM CHLORIDE 0.9% 1,000 ML IV STA (19:55)
[2021-01-20] MEDS ORDERED: SODIUM CHLORIDE 0.9% 500 ML 500 ML IV STA (19:55)
[2021-01-20] MEDS ORDERED: ONDANSETRON 4 MG/2 ML VIAL IVP STA (19:55)
[2021-01-20] MEDS ORDERED: PANTOPRAZOLE 40 MG/10 ML VIAL IVP STA (19:56)
[2021-01-20 21:05] LABS: Basophils % (A) 1 %; Eosinophils # (A) 0.1 k/uL (0-0.7); Eosinophils % (A) 1 %; HCT 40.2 % (34.0-46.0); HGB 13.7 gm/dL (11.4-16.0); Lymphocytes # (A) 1.8 k/uL (1.0-4.8); Lymphocytes % (A) 34 %; MCH 29.6 pg (25.0-35.0); MCHC 34.2 g/dL (31.0-37.0); MCV 86.5 fL (80.0-100.0); Mean Platelet Volume 8.4; Monocytes # (A) 0.4 k/uL (0-1.0); Monocytes % (A) 8 %; Neutrophils # (A) 2.8 k/uL (1.3-7.7); Neutrophils % (A) 53 %; Platelet Count 195 k/uL (150-450); RBC 4.65 m/uL (3.80-5.40); RDW 11.8 % (11.5-15.5); WBC 5.2 k/uL (3.8-10.6)
[2021-01-20 21:14] LABS: ALT 21 U/L (4-34); AST 31 U/L (14-36); African American GFR (CKD) >90 (>60 ml/min/1.73 sqM); Albumin 4.5 g/dL (3.5-5.0); Alkaline Phosphatase 56 U/L (38-126); Anion Gap 13 mmol/L; Blood Urea Nitrogen 10 mg/dL (7-17); Calcium 9.2 mg/dL (8.4-10.2); Carbon Dioxide 22 mmol/L (22-30); Chloride 101 mmol/L (98-107); Glucose 92 mg/dL (74-99); Lipase 91 U/L (23-300); Non-African American GFR(CKD) >90 (>60 ml/min/1.73 sqM); Sodium 136 mmol/L (137-145); Total Bilirubin 0.6 mg/dL (0.2-1.3); Total Protein 7.5 g/dL (6.3-8.2)
[2021-01-20 21:18] LABS: Potassium 3.1 mmol/L (3.5-5.1)
[2021-01-20] MEDS ORDERED: FAMOTIDINE 20 MG TAB PO STA (21:19)
[2021-01-20] MEDS ORDERED: ONDANSETRON ODT 4 MG TAB PO STA (21:19)
[2021-01-20 21:20] LABS: Appearance,Urine Clear (Clear); Bilirubin,Urine Negative (Negative); Blood,Urine Negative (Negative); Color,Urine Yellow; Glucose,Urine (UA) Negative (Negative); Ketones,Urine 1+ (Negative); Leukocyte Esterase,Urine Negative (Negative); Nitrite,Urine Negative (Negative); PH, Urine 6.5 (5.0-8.0); Protein,Urine Trace (Negative); Specific Gravity,Urine 1.024 (1.001-1.035)
[2021-01-20] MEDS ORDERED: POTASSIUM CHLORIDE ER 20 MEQ TAB.ER PO STA (21:30)
--- NOTE | 2021-01-20 22:08 | ED ---
Nausea/Vomiting/Diarrhea HPI - General Chief complaint: Nausea/Vomiting/Diarrhea Stated complaint: Vomiting Time Seen by Provider: 01/20/21 19:03 Source: patient Mode of arrival: ambulatory Limitations: no limitations - History of Present Illness Initial comments: 25 year-old female patient presents to the emergency department for evaluation of vomiting and abdominal pain for the last 5 days. States that she has had at least one episode of vomiting every day. States that she does have significant heart burn with this. She has had jovita fundoplication in the past. She denies any fever or chills. Denies diarrhea or constipation. Denies starting or stopping any new medications. Does admit to smoking weed on a daily basis. States she has not while she has been sick. Denies any hematemesis, hematochezia, or melena. Denies chance of . Patient denies any recent rash, cough, shortness of breath, chest pain, back pain, numbness, tingling, dizziness, weakness, hematuria, dysuria, urinary urgency, urinary frequency, headache, visual changes, or any other complaints. - Related Data Previous Rx's Medication Instructions Recorded Ondansetron Odt [Zofran Odt] 4 mg PO Q8HR PRN 4 Days #12 tab 12/12/19 Pantoprazole Sodium [Protonix] 20 mg PO DAILY 7 Days #7 tablet. 12/27/19 Metoclopramide [Reglan] 10 mg PO TID PRN #15 tab 02/10/20 Famotidine [Pepcid] 20 mg PO BID #60 tablet 01/20/21 Ondansetron [Zofran ODT] 4 mg PO Q8HR PRN #20 tab 01/20/21 Allergies Allergy/AdvReac Type Severity Reaction Status Date / Time No Known Allergies Allergy Verified 01/20/21 18:27 Review of Systems ROS Statement: Those systems with pertinent positive or pertinent negative responses have been documented in the HPI. ROS Other: All systems not noted in ROS Statement are negative. Past Medical History Past Medical History: GERD/Reflux Additional Past Medical History / Comment(s): MIGRAINES, BACK PAIN History of Any Multi-Drug Resistant Organisms: None Reported Past Surgical History: Hernia Repair Past Anesthesia/Blood Transfusion Reactions: Motion Sickness Additional Past Anesthesia/Blood Transfusion Reaction / Comment(s): NO ANESTHESIA HX Past Psychological History: No Psychological Hx Reported Smoking Status: Never smoker Past Alcohol Use History: None Reported Past Drug Use History: Marijuana - Past Family History Mother Family Medical History: No Reported History General Exam Limitations: no limitations General appearance: alert, in no apparent distress, other (This is a well- developed, well-nourished adult female patient in no acute distress.) Respiratory exam: Present: normal lung sounds bilaterally. Absent: respiratory distress, wheezes, rales, rhonchi, stridor Cardiovascular Exam: Present: regular rate, normal rhythm, normal heart sounds. Absent: systolic murmur, diastolic murmur, rubs, gallop, clicks GI/Abdominal exam: Present: soft, tenderness (Midepigastric), normal bowel sounds. Absent: distended, guarding, rebound, rigid Neurological exam: Present: alert, oriented X3, CN II-XII intact Psychiatric exam: Present: normal affect, normal mood Skin exam: Present: warm, dry, intact, normal color. Absent: rash Course Vital Signs 01/20/21 01/20/21 01/20/21 18:23 19:36 21:00 Temperature 100.0 F H 99.5 F Pulse Rate 70 78 Respiratory 19 18 16 Rate Blood Pressure 116/84 110/78 O2 Sat by Pulse 99 97 Oximetry Medical Decision Making - Medical Decision Making 25 year-old female patient presented to the emergency department today for evaluation of nausea and vomiting for the last 5 days. Also reporting some upper abdominal pain. Physical examination did reveal midepigastric tenderness. Labs reviewed and did reveal normal white blood cell, potassium 3.1. Urinalysis shows 1+ ketones, negative test. States negative for covid and influenza. Nurse's that was unable to place an IV, patient refused any more attempts. She was given oral nausea medication Pepcid. Upon reevaluation she is resting comfortably in bed. States she does feel much better. She'll be discharged. Primary care physician for recheck in 1-2 days. Instructed to follow up with GI specialist if symptoms persist. Return parameters were discussed in detail. She verbalizes understanding and agrees with this plan. Case discussed with my attending Dr. Valera. - Lab Data Result diagrams: 01/20/21 19:58 01/20/21 19:58 Lab Results 01/20/21 01/20/21 01/20/21 Range/Units 18:26 19:58 19:58 WBC 5.2 (3.8-10.6) k/uL RBC 4.65 (3.80-5.40) m/uL Hgb 13.7 (11.4-16.0) gm/dL Hct 40.2 (34.0-46.0) % MCV 86.5 (80.0-100.0) fL MCH 29.6 (25.0-35.0) pg MCHC 34.2 (31.0-37.0) g/dL RDW 11.8 (11.5-15.5) % Plt Count 195 (150-450) k/uL MPV 8.4 Neutrophils % 53 % Lymphocytes % 34 % Monocytes % 8 % Eosinophils % 1 % Basophils % 1 % Neutrophils # 2.8 (1.3-7.7) k/uL Lymphocytes # 1.8 (1.0-4.8) k/uL Monocytes # 0.4 (0-1.0) k/uL Eosinophils # 0.1 (0-0.7) k/uL Basophils # 0.0 (0-0.2) k/uL Sodium (137-145) mmol/L Potassium (3.5-5.1) mmol/L Chloride (98-107) mmol/L Carbon Dioxide (22-30) mmol/L Anion Gap mmol/L BUN (7-17) mg/dL Creatinine (0.52-1.04) mg/dL Est GFR (CKD-EPI)AfAm (>60 ml/min/1.73 sqM) Est GFR (CKD-EPI)NonAf (>60 ml/min/1.73 sqM) Glucose (74-99) mg/dL Calcium (8.4-10.2) mg/dL Total Bilirubin (0.2-1.3) mg/dL AST (14-36) U/L ALT (4-34) U/L Alkaline Phosphatase (38-126) U/L Total Protein (6.3-8.2) g/dL Albumin (3.5-5.0) g/dL Lipase (23-300) U/L Urine Color Yellow Urine Appearance Clear (Clear) Urine pH 6.5 (5.0-8.0) Ur Specific [place] 1.024 (1.001-1.035) Urine Protein Trace H (Negative) Urine Glucose (UA) Negative (Negative) Urine Ketones 1+ H (Negative) Urine Blood Negative (Negative) Urine Nitrite Negative (Negative) Urine Bilirubin Negative (Negative) Urine Urobilinogen 4.0 (<2.0) mg/dL Ur Leukocyte Esterase Negative (Negative) Urine HCG, Qual (Not Detectd) Influenza Type A (PCR) Not Detected (Not Detectd) Influenza Type B (PCR) Not Detected (Not Detectd) RSV (PCR) Not Detected (Not Detectd) SARS-CoV-2 (PCR) Not Detected (Not Detectd) 01/20/21 01/20/21 Range/Units 19:58 19:58 WBC (3.8-10.6) k/uL RBC (3.80-5.40) m/uL Hgb (11.4-16.0) gm/dL Hct (34.0-46.0) % MCV (80.0-100.0) fL MCH (25.0-35.0) pg MCHC (31.0-37.0) g/dL RDW (11.5-15.5) % Plt Count (150-450) k/uL MPV Neutrophils % % Lymphocytes % % Monocytes % % Eosinophils % % Basophils % % Neutrophils # (1.3-7.7) k/uL Lymphocytes # (1.0-4.8) k/uL Monocytes # (0-1.0) k/uL Eosinophils # (0-0.7) k/uL Basophils # (0-0.2) k/uL Sodium 136 L (137-145) mmol/L Potassium 3.1 L (3.5-5.1) mmol/L Chloride 101 (98-107) mmol/L Carbon Dioxide 22 (22-30) mmol/L Anion Gap 13 mmol/L BUN 10 (7-17) mg/dL Creatinine 0.53 (0.52-1.04) mg/dL Est GFR (CKD-EPI)AfAm >90 (>60 ml/min/1.73 sqM) Est GFR (CKD-EPI)NonAf >90 (>60 ml/min/1.73 sqM) Glucose 92 (74-99) mg/dL Calcium 9.2 (8.4-10.2) mg/dL Total Bilirubin 0.6 (0.2-1.3) mg/dL AST 31 (14-36) U/L ALT 21 (4-34) U/L Alkaline Phosphatase 56 (38-126) U/L Total Protein 7.5 (6.3-8.2) g/dL Albumin 4.5 (3.5-5.0) g/dL Lipase 91 (23-300) U/L Urine Color Urine Appearance (Clear) Urine pH (5.0-8.0) Ur Specific [place] (1.001-1.035) Urine Protein (Negative) Urine Glucose (UA) (Negative) Urine Ketones (Negative) Urine Blood (Negative) Urine Nitrite (Negative) Urine Bilirubin (Negative) Urine Urobilinogen (<2.0) mg/dL Ur Leukocyte Esterase (Negative) Urine HCG, Qual Not Detected (Not Detectd) Influenza Type A (PCR) (Not Detectd) Influenza Type B (PCR) (Not Detectd) RSV (PCR) (Not Detectd) SARS-CoV-2 (PCR) (Not Detectd) Disposition Clinical Impression: Abdominal pain, Vomiting Disposition: HOME SELF-CARE Condition: Good Instructions (If sedation given, give patient instructions): Acute Nausea and Vomiting (ED), Abdominal Pain (ED) Additional Instructions: Take medications as directed. Follow up with your primary care physician for recheck in 1-2 days. Return for any new, worsening, or concerning symptoms. Prescriptions: Famotidine [Pepcid] 20 mg PO BID #60 tablet Ondansetron [Zofran ODT] 4 mg PO Q8HR PRN #20 tab PRN Reason: Nausea Is patient prescribed a controlled substance at d/c from ED?: No Referrals: Leona Osorio MD [STAFF PHYSICIAN] - 1-2 days Time of Disposition: 22:07
[2021-01-20 22:52] VITALS: BP 110/80; PULSE 75; RESP 17; TEMP 99.1
== END 2021-01-20 22:50 | disposition home or self-care (01) ==
LOC: EC 17:31
DX: R10.13 Epigastric pain (principal); R11.2 Nausea with vomiting, unspecified; R19.7 Diarrhea, unspecified; Z20.822 Contact with and (suspected) exposure to COVID-19
CPT/HCPCS: 36415; 80053; 81003; 81025; 83690; 85025; 87636; 99284

== ENCOUNTER 2021-12-18 08:40 | Inpatient (IN) | payer OTHER ==
[2021-12-18] MEDS ORDERED: METOCLOPRAMIDE 5 MG/ML 2 ML VIAL IVP STA (09:20)
[2021-12-18] MEDS ORDERED: diphenhydrAMINE 50 MG/ML 1 ML VIAL IVP STA (09:20)
[2021-12-18] MEDS ORDERED: SODIUM CHLORIDE 0.9% 1,000 ML IV STA (09:20)
[2021-12-18] MEDS ORDERED: FAMOTIDINE 20 MG/2 ML VIAL IV STA (09:20)
--- NOTE | 2021-12-18 10:03 | ED ---
Nausea/Vomiting/Diarrhea HPI - General Chief complaint: Nausea/Vomiting/Diarrhea Stated complaint: vomiting Time Seen by Provider: 12/18/21 08:50 Source: patient, family, RN notes reviewed Mode of arrival: ambulatory Limitations: no limitations - History of Present Illness Initial comments: This is a 26-year-old female who presents to the emergency department for nausea, vomiting, abdominal pain. Symptoms have been present for a couple of days but became much more severe this morning. She has been taking Zofran and Pepcid at home with no relief. States that she has a history of gastrointestinal problems and had a hiatal hernia repair with Dr. Yusuf in 2019, however she continues to be symptomatic in terms of abdominal pain, nausea, and vomiting. The abdominal pain is described as being diffuse, but is much worse in the epigastric and left upper quadrant. She does have a scope scheduled for later this month. Unsure if this is an upper endoscopy or a colonoscopy. Denies any fevers, chills, sore throat, cough, dyspnea, chest pain, palpitations, diarrhea, back pain, or headaches. MD complaint: nausea, vomiting, abdominal pain Onset/Timin -: days(s) Associated Abdominal Pain: Yes Location: diffuse - Related Data Previous Rx's Medication Instructions Recorded Ondansetron Odt [Zofran Odt] 4 mg PO Q8HR PRN 4 Days #12 tab 12/12/19 Pantoprazole Sodium [Protonix] 20 mg PO DAILY 7 Days #7 tablet. 12/27/19 Metoclopramide [Reglan] 10 mg PO TID PRN #15 tab 02/10/20 Famotidine [Pepcid] 20 mg PO BID #60 tablet 01/20/21 Ondansetron [Zofran ODT] 4 mg PO Q8HR PRN #20 tab 01/20/21 Allergies Allergy/AdvReac Type Severity Reaction Status Date / Time No Known Allergies Allergy Verified 12/18/21 08:46 Review of Systems ROS Statement: Those systems with pertinent positive or pertinent negative responses have been documented in the HPI. ROS Other: All systems not noted in ROS Statement are negative. Past Medical History Past Medical History: GERD/Reflux Additional Past Medical History / Comment(s): MIGRAINES, BACK PAIN History of Any Multi-Drug Resistant Organisms: None Reported Past Surgical History: Hernia Repair Past Anesthesia/Blood Transfusion Reactions: Motion Sickness Additional Past Anesthesia/Blood Transfusion Reaction / Comment(s): NO ANESTHES IA HX Past Psychological History: No Psychological Hx Reported Smoking Status: Never smoker Past Alcohol Use History: None Reported Past Drug Use History: Marijuana - Past Family History Mother Family Medical History: No Reported History General Exam Limitations: no limitations General appearance: alert, in distress Head exam: Present: atraumatic, normocephalic, normal inspection Respiratory exam: Present: normal lung sounds bilaterally. Absent: respiratory distress, wheezes, rales, rhonchi, stridor Cardiovascular Exam: Present: regular rate, normal rhythm, normal heart sounds. Absent: systolic murmur, diastolic murmur, rubs, gallop, clicks GI/Abdominal exam: Present: soft, tenderness (Epigastric and LUQ), hyperactive bowel sounds. Absent: distended Neurological exam: Present: alert, oriented X3, CN II-XII intact Psychiatric exam: Present: normal affect, normal mood Skin exam: Present: warm, dry, intact, normal color. Absent: rash Course Vital Signs 12/18/21 12/18/21 12/18/21 08:43 09:18 10:53 Temperature 98.5 F Pulse Rate 56 L 76 79 Respiratory 18 18 16 Rate Blood Pressure 133/82 136/103 136/68 O2 Sat by Pulse 99 100 96 Oximetry Medical Decision Making - Medical Decision Making This is a 26-year-old female who presents to the emergency department for [place], vomiting, and abdominal pain. Patient's lab work revealed elevation in amylase and lipase. Lipase is greater than 3 limits of normal at 1525 consistent with acute pancreatitis. LFTs are also mildly elevated. Patient also noted to be very tender in the left upper quadrant and epigastric region. Computed tomography scan of the abdomen and pelvis obtained, revealing no irregularities to the pancreas. It did however reveal an acute mild infectious versus inflammatory colitis. Additionally, there is recurrence of the patient's hiatal hernia. There is no clear cause of the patient's pancreatitis at this time. Denies any alcohol use. Ultrasound of the gallbladder ordered to evaluate for the possibility of gallstones as a cause of the pancreatitis. Patient's symptoms were eventually managed in the emergency department after doses of Zofran, Reglan, Pepcid, Dilaudid, and Toradol. Discussed with the patient admission for symptomatic management versus discharge home with pain and nausea medicine. Patient is concerned about her ability to keep down pain medication, and is worried that the pain will return to the severity it was on arrival. Patient will be admitted for acute pancreatitis. Results of the gallbladder ultrasound were pending at the time of admission. This case was discussed in detail with the attending ED physician. Presentation, findings, and treatment plan discussed in detail as well. - Lab Data Result diagrams: 12/18/21 09:12/18/21 09: Lab Results 12/18/21 12/18/21 12/18/21 Range/Units 09: 09: 10:03 WBC 7.4 (3.8-10.6) k/uL RBC 4.72 (3.80-5.40) m/uL Hgb 14.3 (11.4-16.0) gm/dL Hct 40.9 (34.0-46.0) % MCV 86.7 (80.0-100.0) fL MCH 30.3 (25.0-35.0) pg MCHC 35.0 (31.0-37.0) g/dL RDW 12.3 (11.5-15.5) % Plt Count 209 (150-450) k/uL MPV 9.3 Neutrophils % 68 % Lymphocytes % 24 % Monocytes % 5 % Eosinophils % 1 % Basophils % 0 % Neutrophils # 5.0 (1.3-7.7) k/uL Lymphocytes # 1.8 (1.0-4.8) k/uL Monocytes # 0.4 (0-1.0) k/uL Eosinophils # 0.1 (0-0.7) k/uL Basophils # 0.0 (0-0.2) k/uL Sodium 138 (137-145) mmol/L Potassium 3.6 (3.5-5.1) mmol/L Chloride 106 (98-107) mmol/L Carbon Dioxide 18 L (22-30) mmol/L Anion Gap 14 mmol/L BUN 13 (7-17) mg/dL Creatinine 0.60 (0.52-1.04) mg/dL Est GFR (CKD-EPI)AfAm >90 (>60 ml/min/1.73 sqM) Est GFR (CKD-EPI)NonAf >90 (>60 ml/min/1.73 sqM) Glucose 117 H (74-99) mg/dL Calcium 9.2 (8.4-10.2) mg/dL Total Bilirubin 0.8 (0.2-1.3) mg/dL AST 46 H (14-36) U/L ALT 68 H (4-34) U/L Alkaline Phosphatase 72 (38-126) U/L Total Protein 7.2 (6.3-8.2) g/dL Albumin 4.6 (3.5-5.0) g/dL Amylase 259 H (30-110) U/L Lipase 1525 H (23-300) U/L Urine Color Yellow Urine Appearance Cloudy H (Clear) Urine pH 7.0 (5.0-8.0) Ur Specific [place] 1.026 (1.001-1.035) Urine Protein 1+ H (Negative) Urine Glucose (UA) Negative (Negative) Urine Ketones 4+ H (Negative) Urine Blood Moderate H (Negative) Urine Nitrite Negative (Negative) Urine Bilirubin Negative (Negative) Urine Urobilinogen 3.0 (<2.0) mg/dL Ur Leukocyte Esterase Trace H (Negative) Urine RBC 2 (0-5) /hpf Urine WBC 9 H (0-5) /hpf Ur Squamous Epith Cells 47 H (0-4) /hpf Urine Bacteria Rare H (None) /hpf Urine Mucus Many H (None) /hpf Urine HCG, Qual (Not Detectd) Coronavirus (PCR) (Not Detectd) 12/18/21 12/18/21 Range/Units 10:03 10:17 WBC (3.8-10.6) k/uL RBC (3.80-5.40) m/uL Hgb (11.4-16.0) gm/dL Hct (34.0-46.0) % MCV (80.0-100.0) fL MCH (25.0-35.0) pg MCHC (31.0-37.0) g/dL RDW (11.5-15.5) % Plt Count (150-450) k/uL MPV Neutrophils % % Lymphocytes % % Monocytes % % Eosinophils % % Basophils % % Neutrophils # (1.3-7.7) k/uL Lymphocytes # (1.0-4.8) k/uL Monocytes # (0-1.0) k/uL Eosinophils # (0-0.7) k/uL Basophils # (0-0.2) k/uL Sodium (137-145) mmol/L Potassium (3.5-5.1) mmol/L Chloride (98-107) mmol/L Carbon Dioxide (22-30) mmol/L Anion Gap mmol/L BUN (7-17) mg/dL Creatinine (0.52-1.04) mg/dL Est GFR (CKD-EPI)AfAm (>60 ml/min/1.73 sqM) Est GFR (CKD-EPI)NonAf (>60 ml/min/1.73 sqM) Glucose (74-99) mg/dL Calcium (8.4-10.2) mg/dL Total Bilirubin (0.2-1.3) mg/dL AST (14-36) U/L ALT (4-34) U/L Alkaline Phosphatase (38-126) U/L Total Protein (6.3-8.2) g/dL Albumin (3.5-5.0) g/dL Amylase (30-110) U/L Lipase (23-300) U/L Urine Color Urine Appearance (Clear) Urine pH (5.0-8.0) Ur Specific [place] (1.001-1.035) Urine Protein (Negative) Urine Glucose (UA) (Negative) Urine Ketones (Negative) Urine Blood (Negative) Urine Nitrite (Negative) Urine Bilirubin (Negative) Urine Urobilinogen (<2.0) mg/dL Ur Leukocyte Esterase (Negative) Urine RBC (0-5) /hpf Urine WBC (0-5) /hpf Ur Squamous Epith Cells (0-4) /hpf Urine Bacteria (None) /hpf Urine Mucus (None) /hpf Urine HCG, Qual Not Detected (Not Detectd) Coronavirus (PCR) Not Detected (Not Detectd) - Radiology Data Radiology results: report reviewed, image reviewed Disposition Clinical Impression: Pancreatitis Disposition: ADMITTED IP TO THIS [facility] Referrals: Terry Rivera MD [Primary Care Provider] - 1-2 days
[2021-12-18 10:08] LABS: ALT 68 U/L (4-34); AST 46 U/L (14-36); African American GFR (CKD) >90 (>60 ml/min/1.73 sqM); Albumin 4.6 g/dL (3.5-5.0); Alkaline Phosphatase 72 U/L (38-126); Amylase 259 U/L (30-110); Anion Gap 14 mmol/L; Blood Urea Nitrogen 13 mg/dL (7-17); Calcium 9.2 mg/dL (8.4-10.2); Carbon Dioxide 18 mmol/L (22-30); Chloride 106 mmol/L (98-107); Glucose 117 mg/dL (74-99); Lipase 1525 U/L (23-300); Non-African American GFR(CKD) >90 (>60 ml/min/1.73 sqM); Potassium 3.6 mmol/L (3.5-5.1); Sodium 138 mmol/L (137-145); Total Bilirubin 0.8 mg/dL (0.2-1.3); Total Protein 7.2 g/dL (6.3-8.2)
[2021-12-18 10:11] LABS: Basophils % (A) 0 %; Eosinophils # (A) 0.1 k/uL (0-0.7); Eosinophils % (A) 1 %; HCT 40.9 % (34.0-46.0); HGB 14.3 gm/dL (11.4-16.0); Lymphocytes # (A) 1.8 k/uL (1.0-4.8); Lymphocytes % (A) 24 %; MCH 30.3 pg (25.0-35.0); MCV 86.7 fL (80.0-100.0); Mean Platelet Volume 9.3; Monocytes # (A) 0.4 k/uL (0-1.0); Monocytes % (A) 5 %; Neutrophils % (A) 68 %; Platelet Count 209 k/uL (150-450); RBC 4.72 m/uL (3.80-5.40); RDW 12.3 % (11.5-15.5); WBC 7.4 k/uL (3.8-10.6)
[2021-12-18 10:39] LABS: Appearance,Urine Cloudy (Clear); Bacteria,Urine Rare /hpf; Bilirubin,Urine Negative (Negative); Blood,Urine Moderate (Negative); Color,Urine Yellow; Glucose,Urine (UA) Negative (Negative); Ketones,Urine 4+ (Negative); Leukocyte Esterase,Urine Trace (Negative); Mucus,Urine Many /hpf; Nitrite,Urine Negative (Negative); Protein,Urine 1+ (Negative); RBC,Urine 2 /hpf (0-5); Specific Gravity,Urine 1.026 (1.001-1.035); Squamous Epithelial Cell,Urine 47 /hpf (0-4); WBC,Urine 9 /hpf (0-5)
[2021-12-18] MEDS ORDERED: KETOROLAC 15 MG/ML 1 ML VIAL IVP STA (10:43)
[2021-12-18] MEDS ORDERED: ONDANSETRON 4 MG/2 ML VIAL IVP STA (10:43)
[2021-12-18] MEDS ORDERED: HYDROmorphone 0.5 MG/0.5 ML SYRINGE IVP STA (10:44)
--- NOTE | 2021-12-18 12:07 | CT ---
EXAMINATION TYPE: CT abdomen pelvis w con DATE OF EXAM: 12/18/2021 COMPARISON: NONE HISTORY: 26-year-old female abdominal pain, acute, nonlocalized TECHNIQUE: Contiguous axial scanning of the abdomen and pelvis following administration of 100 ml Iso fredo 300 IV contrast. Delayed images through the kidneys and coronal/sagittal reconstructions perform ed. CT DLP: 590.9 mGycm Automated exposure control for dose reduction was used. FINDINGS: LUNG BASES: Post surgical change of the GE junction with the presence of a moderate-sized hiatal eddy ia. Some fold thickening noted along the collapsed stomach may be due to nondistention. LIVER/GB: No significant abnormality is appreciated. PANCREAS: No significant abnormality is seen. SPLEEN: No significant abnormality is seen. ADRENALS: No significant abnormality is seen. KIDNEYS: No significant abnormality is seen. BOWEL: Fluid-filled distal ileal loops. There is long segment wall thickening extending from the asc ending colon to the mid descending colon. No pericolonic inflammatory change. Only mild stool in the cecum and also distally in the colon. Unable to visualize the appendix to the carotid structures. No dilated small bowel or free air. No mesenteric or retroperitoneal lymphadenopathy. PELVIS: Bladder nondistended. Uterus is retroverted. Both ovaries are visualized with prominent folli cular change. Mild cul-de-sac free fluid likely physiologic. No pelvic adenopathy. Bones: No osseous destructive process. IMPRESSION: 1. LONG SEGMENT WALL THICKENING OF THE COLON EXTENDING FROM THE ASCENDING COLON TO THE MID DESCENDING COLON. CORRELATE FOR MILD INFECTIOUS OR INFLAMMATORY COLITIS. 2. THERE IS A MODERATE-SIZED HIATAL HERNIA. POSSIBLY RECURRENT AFTER PREVIOUS SURGICAL REPAIR. CLINIC ALLY CORRELATE. IF SYMPTOMATIC, THE PATIENT CAN BE REFERRED BACK TO HER SURGEON. 3. THERE MAY BE SOME GASTRIC FOLD THICKENING WELL THAT COULD REFLECT GASTRITIS. 4. MILD CUL-DE-SAC FREE FLUID LIKELY PHYSIOLOGIC.
[2021-12-18] MEDS ORDERED: ACETAMINOPHEN TAB 325 MG TAB PO PRN (13:24)
[2021-12-18] MEDS ORDERED: NALOXONE 0.4 MG/ML 1 ML VIAL IV PRN (13:24)
[2021-12-18] MEDS ORDERED: HYDROcodone/APAP 5-325MG 1 EACH TAB PO PRN (13:24)
[2021-12-18] MEDS: SODIUM CHLORIDE 0.9% 1,000 ML IV SCH (13:39)
--- NOTE | 2021-12-18 13:59 | US ---
EXAMINATION TYPE: US gallbladder DATE OF EXAM: 12/18/2021 COMPARISON: CT same day CLINICAL HISTORY: 26-year-old female Pancreatitis, elevated LFTs, epigastric pain. Abnormal labs, yuval n, N&V TECHNIQUE: Multiple sonographic images of the right upper quadrant are obtained. FINDINGS: EXAM MEASUREMENTS: Liver Length: 18.2 cm Gallbladder Wall: 0.2 cm CBD: 0.4 cm Right Kidney: 9.1 x 4.1 x 4.7 cm Pancreas: No gross abnormality. Liver: Mildly enlarged, otherwise appeared wnl Gallbladder: wnl Evidence for sonographic Espinosa's sign: Yes CBD: wnl Right Kidney: wnl, lower pole gassed out. No hydronephrosis. IMPRESSION: No gallstones or biliary ductal dilatation. Aside from mildly enlarged liver (18.2 cm) and a positive sonographic Espinosa's sign, no specific abnormality seen in the right upper quadrant.
[2021-12-18] MEDS: metroNIDAZOLE-NS PMX 500 MG in SALINE 1 100ML.BAG IVPB SCH (14:28)
[2021-12-18] MEDS: PANTOPRAZOLE 40 MG TABLET PO SCH (14:28)
[2021-12-18] MEDS: KETOROLAC 15 MG/ML 1 ML VIAL IVP PRN (17:36)
[2021-12-18] MEDS: HYDROmorphone 1 MG/ML 1 ML SYRINGE IVP PRN (20:30)
[2021-12-19] MEDS: metroNIDAZOLE-NS PMX 500 MG in SALINE 1 100ML.BAG IVPB SCH ×4 (00:35→23:43)
[2021-12-19] MEDS: SODIUM CHLORIDE 0.9% 1,000 ML IV SCH ×2 (02:46→15:03)
[2021-12-19] MEDS: ONDANSETRON 4 MG/2 ML VIAL IVP PRN ×3 (04:11→20:10)
[2021-12-19] MEDS: HYDROmorphone 1 MG/ML 1 ML SYRINGE IVP PRN ×6 (04:12→21:57)
[2021-12-19] MEDS: METOCLOPRAMIDE 5 MG/ML 2 ML VIAL IVP PRN ×5 (04:48→21:57)
--- NOTE | 2021-12-19 05:14 | HP ---
HISTORY AND PHYSICAL HISTORY OF PRESENT ILLNESS: This 26-year-old female came to the ER for nausea, vomiting, abdominal pain, particularly more severe this morning. The patient took Zofran and Pepcid at home with no relief. She has had GI trouble since hiatal hernia repair nausea, and vomiting, diffuse abdominal pain, epigastric, left upper quadrant. Endoscopy is scheduled for later this month. CAT scan in the ER shows colitis, dilated gallbladder, and pancreatic inflammation. She was admitted for acute pancreatitis unable to keep anything down, dehydrated. She takes Protonix 20 b.i.d., Zofran p.r.n., and Reglan 10 mg t.i.d. ALLERGIES: Negative. REVIEW OF SYSTEMS: 14-point review of systems negative except for as mentioned in HPI. PAST MEDICAL HISTORY: GERD, reflux, migraines, hernia repair, motion sickness. SOCIAL HISTORY: Does not smoke, does marijuana. FAMILY HISTORY: Mother, negative. Father . PHYSICAL EXAMINATION: GENERAL: This is a well-developed white female, in no acute distress. INTEGUMENT: Slightly dry skin. HEENT: Dry mucous membrane. RESPIRATORY: Clear. CARDIOVASCULAR: S1 and S2. ABDOMEN: Tender to palpation, epigastric. Questionable guarding. NEUROLOGIC: Alert and oriented x3. PSYCH: Fair mood and affect. VITAL SIGNS: Temp 98.5, pulse 50s to 70s, respiratory rate 16 to 18, blood pressure 130s over 60s to 80s, and O2 96 to 99. ASSESSMENT: Acute pancreatitis. Lipase over 3 times the limit of normal possibly get a HIDA scan in the morning. Started on Flagyl for possible colitis seen on CAT scan, GI surgical consult, n.p.o., IV fluids, surgical evaluation. Prognosis is guarded. MMODL / IJN: [id number] /
[2021-12-19] MEDS: PANTOPRAZOLE 40 MG TABLET PO SCH ×2 (07:38→15:02)
[2021-12-19 09:21] LABS: HCT 36.1 % (37.2-46.3); Lymphocytes % (A) 24.6 %; MCH 29.1 pg (27.0-32.0); MCHC 33.2 g/dL (32.0-37.0); MCV 87.6 fL (80.0-97.0); Monocytes % (A) 7.9 %; Neutrophils % (A) 65.6 %; Platelet Count 182 X 10*3/uL (140-440); RBC 4.12 X 10*6/uL (4.10-5.20); RDW 11.9 % (11.5-14.5); WBC 5.57 X 10*3/uL (4.50-10.00)
[2021-12-19 09:22] LABS: Basophils # (A) 0.02 X 10*3/uL (0.00-0.10); Basophils % (A) 0.4 %; Eosinophils # (A) 0.07 X 10*3/uL (0.04-0.35); Eosinophils % (A) 1.3 %; Immature Grans, Automated 0.2 %; Lymphocytes # (A) 1.37 X 10*3/uL (0.90-5.00); Monocytes # (A) 0.44 X 10*3/uL (0.20-1.00); NRBC Per 100 WBC 0 /100 WBCS (0.0-0.0); Neutrophils # (A) 3.66 X 10*3/uL (1.80-7.70)
[2021-12-19 09:44] LABS: African American GFR (CKD) 144.1 (60.0-200.0); Albumin 3.8 g/dL (3.8-4.9); Albumin/Globulin Ratio 2.05 (1.60-3.17); Anion Gap 11.2 mmol/L (10.00-18.00); BUN/Creat Ratio 12.97 Ratio (12.00-20.00); Blood Urea Nitrogen 7.9 mg/dL (9.0-27.0); Calcium 8.3 mg/dL (8.7-10.3); Carbon Dioxide 21.2 mmol/L (20.0-27.5); Globulin 1.9 g/dL (1.6-3.3); Non-African American GFR(CKD) 124.3 (60.0-200.0); Potassium 3.4 mmol/L (3.5-5.5); Total Bilirubin 0.4 mg/dL (0.30-1.20); Total Protein 5.7 g/dL (6.2-8.2)
--- NOTE | 2021-12-19 15:03 | P.GSCN ---
History of Present Illness Consult date: 12/19/21 History of present illness: REASON FOR CONSULTATION: Abdominal pain HISTORY OF PRESENT ILLNESS: The patient is a 26-year-old female who reports starting having abdominal pain 11/27/2021 of the epigastrium of crampy nature and intermittent. She has pre-existing history of a hiatal hernia repair performed 3 years ago. She reports intolerance to solid foods. She reports intolerance to spicy foods and tomato-based products. She presented to the emergency room where diagnostic studies demonstrated pancreatitis due to elevated lipase. This morning, patient had intractable nausea and vomiting on clear liquid diet. Nausea has improved. Patient is admitted for pancreatitis and intractable abdominal pain, epigastrium. PAST MEDICAL HISTORY: See list and reviewed PAST SURGICAL HISTORY: See list and reviewed MEDICATIONS: See list and reviewed ALLERGIES: See list and reviewed SOCIAL HISTORY: See list and reviewed FAMILY HISTORY: See list and reviewed REVIEW OF ORGAN SYSTEMS: CONSTITUTIONAL: No fevers or chills. No recent weight loss. EYES: Denies any trouble with vision. No glasses. HEENT: No difficulties with hearing. No nosebleeds. No difficulty swallowing. RESPIRATORY: Denies pneumonia. Denies any troubles with breathing or dyspnea on exertion. CARDIOVASCULAR: Denies any chest pain, palpitations, or recent heart attacks. GASTROINTESTINAL: Has gastroesophageal reflux disease GENITOURINARY: Denies any blood in urine or increased urinary frequency. NEUROLOGICAL: Denies any numbness or tingling along the distal extremities. Has migraines MUSCULOSKELETAL: Denies any back pain, stiffness or joint arthritis. SKIN: No current skin cancer. No rash. PSYCHIATRIC: Denies current depression or suicidal thoughts. ENDOCRINE: Denies current thyroid disorders. Denies any blood sugar glucose intolerance. HEME/LYMPHATIC: Denies any lumps and bumps around the neck. No recent deep venous thrombosis. ALLERGY/IMMUNOLOGY: No immunoglobulin therapy. No immune deficiencies. BREAST: Denies current breast lumps, pain or nipple discharge. PHYSICAL EXAM: VITALS: Reviewed CONSTITUTIONAL: Well developed and in no acute distress. EYES: Conjuctivae without sclera icterus. Extraocular movements grossly intact. HEAD, EARS, NOSE, THROAT: Moist buccal mucosa. Head is atraumatic, normocephalic. Hears conversational speech. No nasal drainage. NECK: Supple. No JV distention. No thyroidomegaly. RESPIRATORY: Non-labored respirations and equal bilateral excursions. No gross wheezes. CARDIOVASCULAR: Palpable 2+ radial pulses. ABDOMEN: Tender epigastrium no peritonitis. LYMPH: No neck lymphadenopathy. MUSCULOSKELETAL: Nail and fingers with good capillary refill. SKIN: Warm and well perfused with good skin turgor. NEUROLOGIC: Cranial nerves II through XII grossly intact. No focal or lateralizing signs. PSYCH: Appropriate affect. Alert and oriented to person, place and time. Displays appropriate insight. CLINCAL LABS: Reviewed. Lipase over 1500 on admission. LFTs AST ALT mildly elevated now normal today. WBC 5.57 IMAGING: Independently reviewed. Ultrasound the gallbladder demonstrating no gallstones. This is my independent interpretation. CT of the abdomen pelvis independently reviewed demonstrating no inflammatory changes along the pancreas. Mild to moderate size recurrent hiatal hernia identified. This is my independent interpretation. RADIOLOGY: Report reviewed of ultrasound of gallbladder demonstrating CBD within normal limits. Positive Espinosa sign without gallbladder wall thickening CT report demonstrates recurrent hiatal hernia. Also colitis identified of the ascending colon to descending colon. Features of gastritis. RECORDS: previous old records reviewed October 2018 for hiatal hernia repair ASSESSMENT: 1. Epigastric abdominal pain with pancreatitis 2. Recurrent incarcerated hiatal hernia 3. Abnormal computed tomography scan for colitis PLAN: 1. IV fluid hydration. 2. Nothing by mouth status except ice chips 3. Recommend upper and lower endoscopy due to abnormal computed tomography scan findings for gastritis including colitis Thank you for this kind consultation. Past Medical History Past Medical History: GERD/Reflux Additional Past Medical History / Comment(s): MIGRAINES, BACK PAIN History of Any Multi-Drug Resistant Organisms: None Reported Past Surgical History: Hernia Repair Past Anesthesia/Blood Transfusion Reactions: Motion Sickness Additional Past Anesthesia/Blood Transfusion Reaction / Comm: NO ANESTHESIA HX Past Psychological History: No Psychological Hx Reported Smoking Status: Never smoker Past Alcohol Use History: None Reported Past Drug Use History: Marijuana - Past Family History Mother Family Medical History: No Reported History Medications and Allergies Home Medications Medication Instructions Recorded Confirmed Type Famotidine [Pepcid] 20 mg PO DAILY 12/18/21 12/18/21 History Allergies Allergy/AdvReac Type Severity Reaction Status Date / Time No Known Allergies Allergy Verified 12/18/21 08:46 Surgical - Exam Vital Signs Temp Pulse Resp BP Pulse Ox 98.5 F 56 L 18 133/82 99 12/18/21 08:43 12/18/21 08:43 12/18/21 08:43 12/18/21 08:43 12/18/21 08:43 Results - Labs 12/19/21 05:43 12/19/21 05:43 Abnormal Lab Results - Last 24 Hours (Table) 12/19/21 12/19/21 Range/Units 05:43 05:43 Hct 36.1 L (37.2-46.3) % Potassium 3.4 L (3.5-5.5) mmol/L BUN 7.9 L (9.0-27.0) mg/dL Calcium 8.3 L (8.7-10.3) mg/dL Total Protein 5.7 L (6.2-8.2) g/dL Diabetes panel 12/19/21 Range/Units 05:43 Sodium 139 (135-145) mmol/L Potassium 3.4 L (3.5-5.5) mmol/L Chloride 106 (96-109) mmol/L Carbon Dioxide 21.2 (20.0-27.5) mmol/L BUN 7.9 L (9.0-27.0) mg/dL Creatinine 0.6 (0.6-1.5) mg/dL Glucose 84 (70-110) mg/dL Calcium 8.3 L (8.7-10.3) mg/dL AST 19 (13-35) U/L ALT 44 (8-44) U/L Alkaline Phosphatase 55 (41-126) U/L Total Protein 5.7 L (6.2-8.2) g/dL Albumin 3.8 (3.8-4.9) g/dL Calcium panel 12/19/21 Range/Units 05:43 Calcium 8.3 L (8.7-10.3) mg/dL Albumin 3.8 (3.8-4.9) g/dL Pituitary panel 12/19/21 Range/Units 05:43 Sodium 139 (135-145) mmol/L Potassium 3.4 L (3.5-5.5) mmol/L Chloride 106 (96-109) mmol/L Carbon Dioxide 21.2 (20.0-27.5) mmol/L BUN 7.9 L (9.0-27.0) mg/dL Creatinine 0.6 (0.6-1.5) mg/dL Glucose 84 (70-110) mg/dL Calcium 8.3 L (8.7-10.3) mg/dL Adrenal panel 12/19/21 Range/Units 05:43 Sodium 139 (135-145) mmol/L Potassium 3.4 L (3.5-5.5) mmol/L Chloride 106 (96-109) mmol/L Carbon Dioxide 21.2 (20.0-27.5) mmol/L BUN 7.9 L (9.0-27.0) mg/dL Creatinine 0.6 (0.6-1.5) mg/dL Glucose 84 (70-110) mg/dL Calcium 8.3 L (8.7-10.3) mg/dL Total Bilirubin 0.40 (0.30-1.20) mg/dL AST 19 (13-35) U/L ALT 44 (8-44) U/L Alkaline Phosphatase 55 (41-126) U/L Total Protein 5.7 L (6.2-8.2) g/dL Albumin 3.8 (3.8-4.9) g/dL
[2021-12-19 18:46] LABS: Amylase 87 U/L (23-121); Lipase 71 U/L (14-63)
[2021-12-20] MEDS: HYDROmorphone 1 MG/ML 1 ML SYRINGE IVP PRN ×7 (01:40→22:49)
[2021-12-20] MEDS: METOCLOPRAMIDE 5 MG/ML 2 ML VIAL IVP PRN ×6 (01:40→22:49)
[2021-12-20] MEDS: ONDANSETRON 4 MG/2 ML VIAL IVP PRN ×3 (04:11→20:55)
--- NOTE | 2021-12-20 05:06 | PN ---
PROGRESS NOTE SUBJECTIVE: The patient has worsening . She had nausea and vomiting all day. White count 5.57; hemoglobin is 12, down from 14.3; sodium 139; potassium 3.4. Liver enzymes are improved from 46 to 19, 68 to 44, alkaline phosphatase 72, down to 55. Amylase and lipase are pending. She is admitted with colitis and pancreatitis. Coronavirus is negative. Amylase and lipase are pending for today. Continue current treatment. Follow up in next 24 to 48 hours for possible colonoscopy for colitis. HIDA scan may be ordered for tomorrow. Remain on broad-spectrum antibiotics. Await for GI and surgical consult recommendations. PROGNOSIS: Guarded. MMODL / IJN: [id number] /
[2021-12-20] MEDS: SODIUM CHLORIDE 0.9% 1,000 ML IV SCH ×2 (05:56→17:44)
[2021-12-20 06:36] LABS: Amylase 52 U/L (30-110); Lipase 70 U/L (23-300)
[2021-12-20] MEDS: metroNIDAZOLE-NS PMX 500 MG in SALINE 1 100ML.BAG IVPB SCH ×3 (08:13→23:03)
[2021-12-20] MEDS: PANTOPRAZOLE 40 MG TABLET PO SCH ×2 (08:13→17:43)
[2021-12-20] MEDS: KETOROLAC 15 MG/ML 1 ML VIAL IVP PRN ×2 (10:00→16:28)
[2021-12-20] MEDS ORDERED: PROPOFOL 10 MG/ML 20 ML VIAL IV ONE (12:53)
[2021-12-20] MEDS ORDERED: LIDOCAINE 2% INJ 20 MG/ML (2 ML VIAL) ONE (12:53)
[2021-12-20] MEDS ORDERED: IV FLUID CONTINUATION 900 ML IV ONE (12:53)
[2021-12-20] MEDS ORDERED: ONDANSETRON 4 MG/2 ML VIAL ONE (12:53)
--- NOTE | 2021-12-20 13:03 | P.OP ---
Date of Procedure: 12/20/21 Preoperative Diagnosis: GERD, gastritis Postoperative Diagnosis: Antral gastritis Small hiatal hernia Esophagitis Procedure(s) Performed: EGD Anesthesia: MAC Surgeon: Darrick Yusuf Pathology: other (Antrum) Condition: stable Disposition: floor Description of Procedure: The patient's placed on the endoscopy table in the lateral position. She received IV sedation. The gastroscope placed oropharynx passed in the esophagus into the stomach. Scope was through the pylorus. The first and second portion of the duodenum appeared normal. Scope was then brought back the antrum this. Minimally inflamed. A biopsies performed. The scope was unretroflexed and remainder the stomach appeared normal. The scope was then brought back across the GE junction appeared to be a small hiatal hernia. The wrap for the fundal plication appeared to be displaced inferiorly. The GE junction was at 38 cm per the distal esophagus appeared inflamed. A biopsies performed. The proximal esophagus appeared normal. Scope withdrawn for patient.
[2021-12-21] MEDS: KETOROLAC 15 MG/ML 1 ML VIAL IVP PRN (01:26)
[2021-12-21] MEDS: HYDROmorphone 1 MG/ML 1 ML SYRINGE IVP PRN ×6 (02:23→23:09)
[2021-12-21] MEDS: METOCLOPRAMIDE 5 MG/ML 2 ML VIAL IVP PRN ×4 (03:15→20:07)
[2021-12-21] MEDS: PANTOPRAZOLE 40 MG TABLET PO SCH ×2 (09:03→16:57)
[2021-12-21] MEDS: ONDANSETRON 4 MG/2 ML VIAL IVP PRN ×2 (09:03→16:57)
[2021-12-21] MEDS: metroNIDAZOLE-NS PMX 500 MG in SALINE 1 100ML.BAG IVPB SCH ×3 (09:03→23:09)
--- NOTE | 2021-12-21 09:15 | NM ---
EXAMINATION TYPE: NM hepatobiliary w CCK DATE OF EXAM: 12/21/2021 COMPARISON: Ultrasound 12/18/2021 HISTORY: Pancreatitis, elevated liver function tests, epigastric pain TECHNIQUE: After the intravenous administration of 4.69 mCi Tc 99m Mebrofenin hepatobiliary scintigra phy is performed. Immediate images post injection. FINDINGS: There is satisfactory initial accumulation of tracer by the liver. The gallbladder is visualized wit hin 12 minutes. The small bowel activity is noted on delayed images. At one hour CCK was administer ed, patient was injected with 1.2 mcg of Kinevac, and gallbladder ejection fraction is calculated at 20 %, below the lower and of the normal range. Therefore there is no scintigraphic evidence of cysti c or common bile duct obstruction to suggest acute cholecystitis. IMPRESSION: No evident cystic duct obstruction. Delayed visualization of the common bile duct, abnorm al low gallbladder ejection fraction, consider biliary dyskinesia
[2021-12-21] MEDS: SODIUM CHLORIDE 0.9% 1,000 ML IV SCH ×2 (09:20→23:09)
--- NOTE | 2021-12-21 09:55 | PN ---
PROGRESS NOTE SUBJECTIVE: Amylase and lipase are now normal. EGD performed today showed a slipped hiatal hernia repair. Going to get a HIDA scan for possible cholecystectomy as an outpatient. Advance diet. hiatal hernia repair and severe heartburn at home . OBJECTIVE: CARDIOVASCULAR: S1, S2. ABDOMEN: Soft, increased bowel sounds. ASSESSMENT: Pancreatitis, improved. Possible gallstone pancreatitis. HIDA scan in the morning. Advance diet as tolerated. MMODL / IJN: [id number] /
--- NOTE | 2021-12-21 16:35 | P.PN ---
Subjective Progress Note Date: 12/21/21 CHIEF COMPLAINT: Abdominal pain HISTORY OF PRESENT ILLNESS: Patient is status post EGD revealing antral g astritis, small hiatal hernia and esophagitis. Patient continues to complain of abdominal pain with nausea. She was scheduled for HIDA scan today. Her lipase has normalized. LFTs have normalized. HIDA scan shows no evident cystic duct obstruction. Delayed visualization of the common bile duct. Abnormal low gallbladder ejection fraction consider biliary dyskinesia Patient seen and examined with Dr. ferraro PHYSICAL EXAM: VITAL SIGNS: Reviewed. GENERAL: Well-developed in no acute distress. HEENT: No sclera icterus. Extraocular movements grossly intact. Moist buccal mucosa. Head is atraumatic, normocephalic. ABDOMEN: Soft. Nondistended. Epigastric tenderness NEUROLOGIC: Alert and oriented. Cranial nerves II through XII grossly intact. ASSESSMENT: 1. Epigastric Abdominal pain 2. Acute pancreatitis 3. Biliary dyskinesia 4. Status post EGD showing antral gastritis, small hiatal hernia and esophagitis PLAN: -Planning for outpatient cholecystectomy when patient has medically improved -Continue full liquid diet -Continue supportive care Physician Partition Making Machine Operator note has been reviewed by physician. Signing provider agrees with the documented findings, assessment, and plan of care. Objective - Vital Signs Vital signs: Vital Signs Temp 98.6 F 12/21/21 15:00 Pulse 79 12/21/21 15:00 Resp 18 12/21/21 15:00 BP 115/68 12/21/21 15:00 Pulse Ox 98 12/21/21 15:00 FiO2 Intake & Output 12/20/21 12/21/21 12/21/21 18:59 06:59 18:59 Intake Total 100 Balance 100 Intake: IV 100 Other: Voiding Method Toilet # Voids 1 2 2 - Labs CBC & Chem 7: 12/19/21 05:43 12/19/21 05:43
[2021-12-22] MEDS: HYDROmorphone 1 MG/ML 1 ML SYRINGE IVP PRN ×4 (03:05→14:11)
[2021-12-22] MEDS: METOCLOPRAMIDE 5 MG/ML 2 ML VIAL IVP PRN ×3 (03:05→11:20)
[2021-12-22] MEDS: ONDANSETRON 4 MG/2 ML VIAL IVP PRN ×3 (06:06→22:56)
[2021-12-22] MEDS: PANTOPRAZOLE 40 MG TABLET PO SCH ×2 (07:58→19:09)
[2021-12-22] MEDS: metroNIDAZOLE-NS PMX 500 MG in SALINE 1 100ML.BAG IVPB SCH ×3 (08:00→22:56)
[2021-12-22 09:46] LABS: Basophils % (A) 0 %; Eosinophils % (A) 1 %; HCT 38.2 % (34.0-46.0); HGB 12.7 gm/dL (11.4-16.0); Lymphocytes # (A) 1.1 k/uL (1.0-4.8); Lymphocytes % (A) 20 %; MCH 29.1 pg (25.0-35.0); MCHC 33.3 g/dL (31.0-37.0); MCV 87.6 fL (80.0-100.0); Mean Platelet Volume 8.3; Monocytes # (A) 0.2 k/uL (0-1.0); Monocytes % (A) 4 %; Neutrophils % (A) 72 %; Platelet Count 196 k/uL (150-450); RBC 4.36 m/uL (3.80-5.40); RDW 12.1 % (11.5-15.5); WBC 5.5 k/uL (3.8-10.6)
[2021-12-22 09:51] LABS: ALT 27 U/L (4-34); AST 27 U/L (14-36); African American GFR (CKD) >90 (>60 ml/min/1.73 sqM); Albumin 3.7 g/dL (3.5-5.0); Albumin/Globulin Ratio 1.8; Alkaline Phosphatase 53 U/L (38-126); Anion Gap 15 mmol/L; Blood Urea Nitrogen 3 mg/dL (7-17); Calcium 8.1 mg/dL (8.4-10.2); Carbon Dioxide 18 mmol/L (22-30); Chloride 102 mmol/L (98-107); Globulin 2.1 g/dL; Glucose 69 mg/dL (74-99); Non-African American GFR(CKD) >90 (>60 ml/min/1.73 sqM); Potassium 3.5 mmol/L (3.5-5.1); Sodium 135 mmol/L (137-145); Total Bilirubin 0.3 mg/dL (0.2-1.3); Total Protein 5.8 g/dL (6.3-8.2)
[2021-12-22 10:20] LABS: Glucose,Whole Blood 67 mg/dL (70-110)
[2021-12-22 10:38] LABS: Glucose,Whole Blood 64 mg/dL (70-110)
[2021-12-22 11:06] LABS: Glucose,Whole Blood 63 mg/dL (70-110)
[2021-12-22 11:28] LABS: Glucose,Whole Blood 78 mg/dL (70-110)
[2021-12-22] MEDS: SODIUM CHLORIDE 0.9% 1,000 ML IV SCH (11:47)
[2021-12-22] MEDS: DEXTROSE 5%-0.9% NACL 1,000 ML IV SCH ×2 (12:00→22:57)
[2021-12-22] MEDS ORDERED: POTASSIUM CHLORIDE ER 20 MEQ TAB.ER PO STA (14:11)
--- NOTE | 2021-12-22 15:24 | P.PN ---
Subjective Progress Note Date: 12/22/21 CHIEF COMPLAINT: Abdominal pain HISTORY OF PRESENT ILLNESS: Patient continues to have nausea and vomiting. She is vomiting bile. Still having epigastric pain. HIDA scan shows no evident cystic duct obstruction. Delayed visualization of the common bile duct. Abnormal low gallbladder ejection fraction consider biliary dyskinesia. Her EF is 20%. Afebrile WBC is 5.5 hemoglobin 12.7 platelet 196 sodium 135 potassium 3.5 creatinine 0.5 to glucose 69 total bilirubin 0.3 AST 27 ALT 27 lipase 38 Patient seen and examined with Dr. ferraro PHYSICAL EXAM: VITAL SIGNS: Reviewed. GENERAL: Well-developed in no acute distress. HEENT: No sclera icterus. Extraocular movements grossly intact. Moist buccal mucosa. Head is atraumatic, normocephalic. ABDOMEN: Soft. Nondistended. Epigastric tenderness NEUROLOGIC: Alert and oriented. Cranial nerves II through XII grossly intact. ASSESSMENT: 1. Epigastric Abdominal pain 2. Acute pancreatitis 3. Biliary dyskinesia 4. Status post EGD showing antral gastritis, small hiatal hernia and esophagitis 5. Hypokalemia PLAN: -Due to patient continued to have nausea and vomiting and abdominal pain she has been scheduled for laparoscopic cholecystectomy today with Dr. ferraro -Keep patient nothing by mouth -Potassium replaced Physician Senior Project Controls Specialist note has been reviewed by physician. Signing provider agrees with the documented findings, assessment, and plan of care. Objective - Vital Signs Vital signs: Vital Signs Temp 98.0 F 12/22/21 14:00 Pulse 81 12/22/21 14:00 Resp 16 12/22/21 14:00 BP 142/84 12/22/21 14:00 Pulse Ox 98 12/22/21 14:00 FiO2 Intake & Output 12/21/21 12/22/21 12/22/21 18:59 06:59 18:59 Intake Total 120 1100 59 Balance 120 1100 59 Intake: Intake, IV Titration 1100 Amount Sodium Chloride 0.9% 1, 1000 000 ml @ 75 mls/hr IV . [id number] ASHLEY Rx#:[id number] metroNIDAZOLE-NS PMX 500 100 mg In Saline 1 100ml.bag @ 100 mls/hr IVPB Q8HR ASHLEY Rx#:[id number] Oral 120 59 Other: Voiding Method Toilet Toilet # Voids 2 - Labs CBC & Chem 7: 12/22/21 09:31 09/21/22 09:31 Labs: Abnormal Lab Results - Last 24 Hours (Table) 12/22/21 12/22/21 12/22/21 Range/Units 09:31 10:18 10:37 Sodium 135 L (137-145) mmol/L Carbon Dioxide 18 L (22-30) mmol/L BUN 3 L (7-17) mg/dL Glucose 69 L (74-99) mg/dL POC Glucose (mg/dL) 67 L 64 L (70-110) mg/dL Calcium 8.1 L (8.4-10.2) mg/dL Total Protein 5.8 L (6.3-8.2) g/dL 12/22/21 Range/Units 11:02 Sodium (137-145) mmol/L Carbon Dioxide (22-30) mmol/L BUN (7-17) mg/dL Glucose (74-99) mg/dL POC Glucose (mg/dL) 63 L (70-110) mg/dL Calcium (8.4-10.2) mg/dL Total Protein (6.3-8.2) g/dL
[2021-12-22] MEDS ORDERED: IV FLUID CONTINUATION 1,000 ML IV ONE (15:28)
[2021-12-22] MEDS ORDERED: HEPARIN SODIUM,PORCINE/PF 5,000 UNIT/0.5 ML SYRINGE SQ ONE (15:36)
[2021-12-22] MEDS ORDERED: HEPARIN SODIUM,PORCINE 5,000 UNIT/ML 1 ML VIAL SQ ONE (15:39)
[2021-12-22] MEDS ORDERED: DEXAMETHASONE SOD PHOSPHATE 4 MG/ML 1 ML VIAL IVP ONE (15:39)
[2021-12-22] MEDS ORDERED: MIDAZOLAM 2 MG/2 ML VIAL IV ONE (15:49)
[2021-12-22] MEDS ORDERED: HYDROmorphone (PF) 1 MG/ML ONE (17:14)
[2021-12-22] MEDS ORDERED: ROCURONIUM 10 MG/ML (5 ML VIAL) IV ONE (17:14)
[2021-12-22] MEDS ORDERED: MIDAZOLAM 2 MG/2 ML VIAL ONE (17:14)
[2021-12-22] MEDS ORDERED: LIDOCAINE 2% INJ 20 MG/ML (2 ML VIAL) ONE (17:14)
[2021-12-22] MEDS ORDERED: fentaNYL (PF) 50 MCG/ML 2 ML AMP ONE (17:14)
[2021-12-22] MEDS ORDERED: SUCCINYLCHOLINE CHLORIDE 200 MG/10 ML VIAL IV ONE (17:14)
[2021-12-22] MEDS ORDERED: GLYCOPYRROLATE 0.2 MG/ML 2 ML VIAL ONE (17:14)
[2021-12-22] MEDS ORDERED: NEOSTIGMINE 1 MG/ML 10 ML VIAL ONE (17:14)
[2021-12-22] MEDS ORDERED: PROPOFOL 10 MG/ML 20 ML VIAL IV ONE (17:14)
[2021-12-22] MEDS ORDERED: BUPIVACAIN-EPI 0.25%-1:200,000 30 ML VIAL SQ ONE (17:30)
--- NOTE | 2021-12-22 17:49 | P.OP ---
Date of Procedure: 12/22/21 Preoperative Diagnosis: Cholecystitis Postoperative Diagnosis: Cholecystitis Procedure(s) Performed: Laparoscopic cholecystectomy Anesthesia: ODILIA Surgeon: Darrick Yusuf Estimated Blood Loss (ml): 5 Pathology: other (Gallbladder) Condition: stable Disposition: PACU Description of Procedure: The patient was placed on the operating table. The patient received a general endotracheal tube anesthesia. The patients abdomen was prepped and draped in the usual sterile fashion. Through an infraumbilical stab incision, the fascia of the anterior abdominal wall was grasped with a pair of Kochers and then the Veress needle was placed in the peritoneal cavity. Position of the Veress needle was confirmed with positive drop test. The abdomen was then insufflated. After adequate insufflation, the 10 mm trocar was placed in the peritoneal cavity. Following this the laparoscope was placed in the peritoneal cavity. The patient was placed in the head-up, right side up position and then a 5 mm trocar was placed in the right lateral and right subcostal position under direct visualization. A 8 mm trocar was placed in the epigastric position. The gallbladder was grasped in the fundus and infundibulum. Traction on the gallbladder was placed in the lateral and the cephalad positions. The triangle of Calot was visualized.. The cystic duct was bluntly dissected until the union of the cystic duct and common bile duct was seen. A critical view of safety was achieved. The cystic duct was then divided and sealed with the Harmonic scissors. A PDS Endoloop was then placed throughout the cystic duct stump. The cystic artery divided and sealed with the Harmonic scissors. The gallbladder was then removed from the liver bed using Harmonic scissors. The gallbladder was then extracted through the epigastric port site. Operative field was checked for any bleeding spots and Harmonic scissors was used to coagulate the liver bed. The abdomen was irrigated. The trocars were removed. The skin was closed using interrupted 3-0 Vicryl suture. Dermabond dressing were applied. The patient tolerated the procedure well.
[2021-12-22] MEDS ORDERED: HYDROcodone/APAP 7.5-325MG 1 EACH TAB PO PRN (17:50)
[2021-12-22] MEDS ORDERED: HYDROmorphone 0.5 MG/0.5 ML SYRINGE IVP ONE ×2 (18:40→18:48)
--- NOTE | 2021-12-23 02:44 | PN ---
PROGRESS NOTE The patient still has progressive vomiting today, can't keep anything down. EGD shows gastritis, duodenitis after biopsies. Discussed case with surgeon. Continue the patient to surgery for abnormal HIDA scan for abnormal gallbladder. We will monitor if her blood sugars have been low all day. We have given her D5 normal saline. We will get Endocrinology consult for that. Advance diet after gallbladder surgery as tolerated. Continue on proton pump inhibitor for gastritis, duodenitis. care after gallbladder was removed. Hiatal hernia repair will have to be done as an outpatient. Discussed the case with Dr. Yusuf. We will do that later on a couple of weeks from now and fix the hiatal hernia causing duodenitis. Prognosis guarded. MMODL / IJN: [id number] /
--- NOTE | 2021-12-23 03:14 | PN ---
PROGRESS NOTE SUBJECTIVE: A 26-year-old white female who still has progressive nausea and vomiting. Dr. Yusuf wants to do a HIDA scan as an outpatient. We will advance her diet and see how she does. She has a little bit less nausea now and she is back on her medications. EGD did not show any significant findings. OBJECTIVE: CARDIOVASCULAR: S1, S2. ASSESSMENT: Cholecystitis, pancreatitis. Amylase and lipase normal. Advance diet. If she tolerates diet, she possibly could go home tomorrow with outpatient HIDA scan, which was abnormal and discussed with her and the patient and Dr. Yusuf. If she does not tolerate diet, she may have to have a cholecystectomy while here in the hospital. MMODL / IJN: [id number] /
[2021-12-23] MEDS: METOCLOPRAMIDE 5 MG/ML 2 ML VIAL IVP PRN ×4 (03:22→20:22)
[2021-12-23] MEDS: HYDROmorphone 1 MG/ML 1 ML SYRINGE IVP PRN ×2 (04:00→07:35)
[2021-12-23] MEDS: PANTOPRAZOLE 40 MG TABLET PO SCH ×2 (07:34→16:00)
[2021-12-23] MEDS: metroNIDAZOLE-NS PMX 500 MG in SALINE 1 100ML.BAG IVPB SCH ×3 (07:34→23:33)
[2021-12-23] MEDS: ONDANSETRON 4 MG/2 ML VIAL IVP PRN ×2 (07:42→23:36)
[2021-12-23 10:43] LABS: Basophils # (A) 0.03 X 10*3/uL (0.00-0.10); Basophils % (A) 0.3 %; Eosinophils # (A) 0 X 10*3/uL (0.04-0.35); Eosinophils % (A) 0 %; HCT 35.5 % (37.2-46.3); HGB 12.3 g/dL (12.0-15.0); Immature Grans, Automated 0.6 %; Lymphocytes # (A) 1.53 X 10*3/uL (0.90-5.00); Lymphocytes % (A) 16.5 %; MCH 29.3 pg (27.0-32.0); MCHC 34.6 g/dL (32.0-37.0); MCV 84.5 fL (80.0-97.0); Mean Platelet Volume 11.6 fL (9.5-12.2); Monocytes # (A) 0.61 X 10*3/uL (0.20-1.00); Monocytes % (A) 6.6 %; NRBC Per 100 WBC 0 /100 WBCS (0.0-0.0); Neutrophils # (A) 7.03 X 10*3/uL (1.80-7.70); Platelet Count 257 X 10*3/uL (140-440); RDW 11.9 % (11.5-14.5); WBC 9.26 X 10*3/uL (4.50-10.00)
[2021-12-23] MEDS: traMADol 50 MG TAB PO PRN ×2 (11:05→20:23)
[2021-12-23 11:14] LABS: African American GFR (CKD) 144.8 (60.0-200.0); Anion Gap 14.9 mmol/L (10.00-18.00); Blood Urea Nitrogen 2.4 mg/dL (9.0-27.0); Calcium 8.6 mg/dL (8.7-10.3); Carbon Dioxide 22.1 mmol/L (20.0-27.5); Non-African American GFR(CKD) 124.9 (60.0-200.0); Potassium 3.6 mmol/L (3.5-5.5); Total Bilirubin 0.2 mg/dL (0.30-1.20)
[2021-12-23] MEDS: KETOROLAC 15 MG/ML 1 ML VIAL IVP SCH ×3 (14:45→23:32)
[2021-12-23] MEDS: DEXTROSE 5%-0.9% NACL 1,000 ML IV SCH (14:51)
--- NOTE | 2021-12-23 15:14 | P.PN ---
Subjective Progress Note Date: 12/23/21 CHIEF COMPLAINT: Abdominal pain HISTORY OF PRESENT ILLNESS: Patient is status post laparoscopic cholecystectomy for cholecystitis. Postop day #1. Patient reports that she vomited about 5 times last night. She continues to complain of some nausea gas and abdominal pain. She does report that her pain is finally different feeling than what she presented with in the ER. She's currently clear liquid diet. Afebrile. WBC is 9.26 hemoglobin 12.3 fluids to 57 sodium was 137 potassium 3.6 creatinine 0.6 LFTs normal lipase 16 Patient seen and examined with Dr. ferraro PHYSICAL EXAM: VITAL SIGNS: Reviewed. GENERAL: Well-developed in no acute distress. HEENT: No sclera icterus. Extraocular movements grossly intact. Moist buccal mucosa. Head is atraumatic, normocephalic. ABDOMEN: Soft. Nondistended. Tenderness at incision sites. Incision is clean dry and intact. NEUROLOGIC: Alert and oriented. Cranial nerves II through XII grossly intact. ASSESSMENT: 1. Cholecystitis status post laparoscopic cholecystectomy 2. Acute pancreatitis 3. Biliary dyskinesia 4. Status post EGD showing antral gastritis, small hiatal hernia and esophagitis 5. Hypokalemia resolved 6. Postop nausea and vomiting PLAN: -Ultram and Toradol added for pain control -Encourage patient to ambulate -Continue clear liquid diet -Encourage patient to use incentive spirometer -Continue Zofran and Reglan as needed for antiemetics -GI prophylaxis Protonix and DVT prophylaxis subcu heparin Physician Forest And Conservation Worker note has been reviewed by physician. Signing provider agrees with the documented findings, assessment, and plan of care. Objective - Vital Signs Vital signs: Vital Signs Temp 98.2 F 12/23/21 08:00 Pulse 64 12/23/21 08:00 Resp 16 12/23/21 08:00 BP 119/75 12/23/21 08:00 Pulse Ox 97 12/23/21 08:00 FiO2 Intake & Output 12/22/21 12/23/21 12/23/21 18:59 06:59 18:59 Intake Total 1159 250 Output Total 5 Balance 1154 250 Intake: IV 1100 Oral 59 250 Output: Estimated Blood Loss 5 Other: Voiding Method Toilet Toilet Toilet - Labs CBC & Chem 7: 12/23/21 06:58 12/23/21 06:58 Labs: Abnormal Lab Results - Last 24 Hours (Table) 12/23/21 12/23/21 Range/Units 06:58 06:58 Hct 35.5 L (37.2-46.3) % Immature Gran # 0.06 H (0.00-0.04) X 10*3/uL Eosinophils # 0 L (0.04-0.35) X 10*3/uL BUN 2.4 L (9.0-27.0) mg/dL BUN/Creatinine Ratio 4.00 L (12.00-20.00) Ratio Glucose 111 H (70-110) mg/dL Calcium 8.6 L (8.7-10.3) mg/dL Total Bilirubin 0.20 L (0.30-1.20) mg/dL Total Protein 6.0 L (6.2-8.2) g/dL
[2021-12-23] MEDS: HEPARIN SODIUM,PORCINE/PF 5,000 UNIT/0.5 ML SYRINGE SQ SCH (21:42)
[2021-12-24] MEDS: METOCLOPRAMIDE 5 MG/ML 2 ML VIAL IVP PRN ×2 (01:26→05:32)
[2021-12-24] MEDS: DEXTROSE 5%-0.9% NACL 1,000 ML IV SCH (05:06)
[2021-12-24] MEDS: KETOROLAC 15 MG/ML 1 ML VIAL IVP SCH (05:33)
--- NOTE | 2021-12-24 08:48 | P.PN ---
Subjective Progress Note Date: 12/24/21 CHIEF COMPLAINT: Abdominal pain HISTORY OF PRESENT ILLNESS: Patient is status post laparoscopic cholecystectomy for cholecystitis. Postop day #2. Patient reports that she is feeling better today. Denies any further nausea. Her pain is controlled. She is tolerating regular diet. Afebrile. She has been up and ambulating. Labs pending for this morning Patient seen and examined with Dr. ferraro PHYSICAL EXAM: VITAL SIGNS: Reviewed. GENERAL: Well-developed in no acute distress. HEENT: No sclera icterus. Extraocular movements grossly intact. Moist buccal mucosa. Head is atraumatic, normocephalic. ABDOMEN: Soft. Nondistended. NEUROLOGIC: Alert and oriented. Cranial nerves II through XII grossly intact. ASSESSMENT: 1. Cholecystitis status post laparoscopic cholecystectomy 2. Acute pancreatitis 3. Biliary dyskinesia 4. Status post EGD showing antral gastritis, small hiatal hernia and esophagitis 5. Hypokalemia resolved 6. Postop nausea and vomiting PLAN: -Patient can be discharged from surgical standpoint -Continue regular diet Physician Crosscutter note has been reviewed by physician. Signing provider agrees with the documented findings, assessment, and plan of care. Objective - Vital Signs Vital signs: Vital Signs Temp 98.5 F 12/24/21 02:33 Pulse 72 12/24/21 02:33 Resp 17 12/24/21 02:33 BP 129/75 12/24/21 02:33 Pulse Ox 98 12/24/21 02:33 FiO2 Intake & Output 12/23/21 12/24/21 12/24/21 18:59 06:59 18:59 Intake Total 100 Balance 100 Intake: Oral 100 Other: Voiding Method Toilet # Voids 6 5 - Labs CBC & Chem 7: 12/23/21 06:58 12/23/21 06:58 Labs: Abnormal Lab Results - Last 24 Hours (Table) 12/23/21 12/23/21 Range/Units 06:58 06:58 Hct 35.5 L (37.2-46.3) % Immature Gran # 0.06 H (0.00-0.04) X 10*3/uL Eosinophils # 0 L (0.04-0.35) X 10*3/uL BUN 2.4 L (9.0-27.0) mg/dL BUN/Creatinine Ratio 4.00 L (12.00-20.00) Ratio Glucose 111 H (70-110) mg/dL Calcium 8.6 L (8.7-10.3) mg/dL Total Bilirubin 0.20 L (0.30-1.20) mg/dL Total Protein 6.0 L (6.2-8.2) g/dL
[2021-12-24] MEDS: metroNIDAZOLE-NS PMX 500 MG in SALINE 1 100ML.BAG IVPB SCH (09:31)
[2021-12-24] MEDS: PANTOPRAZOLE 40 MG TABLET PO SCH (09:32)
[2021-12-24] MEDS: HEPARIN SODIUM,PORCINE/PF 5,000 UNIT/0.5 ML SYRINGE SQ SCH (09:35)
[2021-12-24 09:39] VITALS: BP 131/87; PULSE 69; RESP 18; TEMP 98.4
[2021-12-24 10:52] LABS: Basophils # (A) 0.03 X 10*3/uL (0.00-0.10); Basophils % (A) 0.6 %; Eosinophils % (A) 1.9 %; HCT 34.5 % (37.2-46.3); HGB 11.9 g/dL (12.0-15.0); Immature Grans, Automated 0.7 %; Lymphocytes # (A) 1.73 X 10*3/uL (0.90-5.00); Lymphocytes % (A) 32.3 %; MCH 29.5 pg (27.0-32.0); MCHC 34.5 g/dL (32.0-37.0); MCV 85.4 fL (80.0-97.0); Mean Platelet Volume 11.5 fL (9.5-12.2); Monocytes # (A) 0.42 X 10*3/uL (0.20-1.00); Monocytes % (A) 7.9 %; NRBC Per 100 WBC 0 /100 WBCS (0.0-0.0); Neutrophils # (A) 3.03 X 10*3/uL (1.80-7.70); Neutrophils % (A) 56.6 %; Platelet Count 213 X 10*3/uL (140-440); RBC 4.04 X 10*6/uL (4.10-5.20); RDW 12.1 % (11.5-14.5); WBC 5.35 X 10*3/uL (4.50-10.00)
[2021-12-24 11:55] LABS: Glucose,Whole Blood 80 mg/dL (70-110)
[2021-12-24 12:21] LABS: BUN/Creat Ratio 3.28 Ratio (12.00-20.00)
[2021-12-24 12:22] LABS: African American GFR (CKD) 152.1 (60.0-200.0); Albumin 3.8 g/dL (3.8-4.9); Albumin/Globulin Ratio 1.94 (1.60-3.17); Anion Gap 14.6 mmol/L (10.00-18.00); Blood Urea Nitrogen 1.7 mg/dL (9.0-27.0); Calcium 8.4 mg/dL (8.7-10.3); Carbon Dioxide 23.3 mmol/L (20.0-27.5); Non-African American GFR(CKD) 131.3 (60.0-200.0); Potassium 3.1 mmol/L (3.5-5.5); Total Bilirubin 0.2 mg/dL (0.30-1.20); Total Protein 5.8 g/dL (6.2-8.2)
[2021-12-24 14:04] LABS: Glucose,Whole Blood 136 mg/dL (70-110)
--- NOTE | 2021-12-25 00:17 | PN ---
PROGRESS NOTE SUBJECTIVE: A 26-year-old white female with pancreatitis, esophagitis, gastritis. She is a little bit better after cholecystectomy today. She has been vomiting before that, she has vomited once since then. We advanced her diet, possibly discharge home tomorrow if she is doing well. OBJECTIVE: CARDIOVASCULAR: S1, S2. LUNGS: Clear. GI: Soft. Incision clean, dry, intact. ASSESSMENT: Status post cholecystectomy for cholecystitis, abdominal pain, progressive nausea and vomiting. Continue with rehydration. Advance diet as tolerated, possible discharge home with family tomorrow. MMODL / IJN: [id number] /
--- NOTE | 2021-12-25 11:12 | P.DS ---
Providers Date of admission: 12/20/21 11:01 Expected date of discharge: 12/24/21 Attending physician: Terry Rivera Consults: 12/18/21 14:02 Consult Physician Routine Consulting Provider: Darrick Yusuf Consult Reason/Comments: pancreat Do you want consulting provider notified?: Yes 12/18/21 14:44 Consult Physician Routine Consulting Provider: Leona Osorio Consult Reason/Comments: colitis Do you want consulting provider notified?: Yes 12/22/21 17:25 Consult Physician Routine Consulting Provider: Ho Orozco Consult Reason/Comments: hypoglycemia Do you want consulting provider notified?: Yes Primary care physician: [facility] Course: Presenting complaint: I'm rounding for Dr. Terry Rivera Laparoscopic: Cholecystectomy December 24: Laying in bed. Comfortable. Pain control. Did tolerate her breakfast. No nausea vomiting. Did pass some flatus. Patient seen by surgery. Cleared for discharge. Patient is ambulated. Feeling well. Patient to take a low-fat soft diet. Care was discussed with the patient. Follow-up with surgery and Dr. Rivera. On exam: 98.4, 69, 18, 131/87, 98% room air Lungs: Clear Abdomen: Minimal tenderness. Soft Psychiatry: AO 3, without affect normal Cardiovascular: First seconds are normal INVESTIGATIONS, reviewed in the clinical context: White count 5.3 hemoglobin 11.9 potassium 3.1 creatinine 0.5 Assessment and plan: -Status post laparoscopic cholecystectomy. -Normocytic anemia, as expected secondary to surgery -GERD Pepcid Disposition: Home Plan - Discharge Summary New Discharge Prescriptions: New Ibuprofen [Motrin] 600 mg PO Q8HR PRN #30 tab PRN Reason: Pain traMADol HCl [Ultram] 100 mg PO Q8HR PRN 3 Days #9 tab PRN Reason: Pain Acetaminophen Tab [Tylenol] 650 mg PO Q6HR PRN tab PRN Reason: Mild Pain Or Fever > 100.5 Continue Famotidine [Pepcid] 20 mg PO DAILY Discharge Medication List Famotidine [Pepcid] 20 mg PO DAILY 12/18/21 [History] Acetaminophen Tab [Tylenol] 650 mg PO Q6HR PRN tab 12/24/21 [Rx] Ibuprofen [Motrin] 600 mg PO Q8HR PRN #30 tab 12/24/21 [Rx] traMADol HCl [Ultram] 100 mg PO Q8HR PRN 3 Days #9 tab 12/24/21 [Rx] Follow up Appointment(s)/Referral(s): Terry Rivera MD [Primary Care Provider] - 1-2 days Darrick Yusuf MD [STAFF PHYSICIAN] - 01/04/22 2:15 pm Patient Instructions/Handouts: Laparoscopic Cholecystectomy (DC) Activity/Diet/Wound Care/Special Instructions: No driving while taking ultram No lifting over 10 pounds Shower daily. No soaking or tub baths for 2 weeks Very light activity until you are reevaluated at your follow up appointment with your surgeon Continue a bland diet at home Discharge Disposition: HOME SELF-CARE
== END 2021-12-24 14:56 | disposition home or self-care (01) | DRG 417 ==
LOC: EC 08:40 → 6NMEDSUR 13:24 → OBSVTOIN 12-20 11:01
PROVIDERS: ADMIT Family Medicine; ATTEND Family Medicine
PROC: 0DB38ZX Excision of Lower Esophagus, Via Natural or Artificial Opening Endoscopic, Diagnostic (ICD-10-PCS; 2021-12-20)
PROC: 0DB78ZX Excision of Stomach, Pylorus, Via Natural or Artificial Opening Endoscopic, Diagnostic (ICD-10-PCS; 2021-12-20)
PROC: 0FT44ZZ Resection of Gallbladder, Percutaneous Endoscopic Approach (ICD-10-PCS; principal; 2021-12-22 17:17)
DX: K81.9 Cholecystitis, unspecified (principal); K85.90 Acute pancreatitis without necrosis or infection, unspecified; T85.528A Displacement of other gastrointestinal prosthetic devices, implants and grafts, initial encounter; Z20.822 Contact with and (suspected) exposure to COVID-19; Z28.310 Unvaccinated for COVID-19; E87.6 Hypokalemia; E16.2 Hypoglycemia, unspecified; D64.9 Anemia, unspecified; K29.80 Duodenitis without bleeding; K29.70 Gastritis, unspecified, without bleeding; E86.0 Dehydration; K21.00 Gastro-esophageal reflux disease with esophagitis, without bleeding; M54.9 Dorsalgia, unspecified; K82.8 Other specified diseases of gallbladder; Z79.899 Other long term (current) drug therapy
CPT/HCPCS: 36415; 43239; 74177; 76705; 78227; 80053; 81001; 81025; 82150; 83690; 85025; 87635; 88304; 88305; 96361; 96374; 96375; 96376; 99285

== ENCOUNTER 2022-01-14 09:49 | Emergency (ER) | payer OTHER ==
[2022-01-14 09:58] VITALS: TEMP 98.5
[2022-01-14] MEDS ORDERED: ONDANSETRON 4 MG/2 ML VIAL IVP STA (10:23)
[2022-01-14] MEDS ORDERED: diphenhydrAMINE 50 MG/ML 1 ML VIAL IVP STA (10:23)
[2022-01-14] MEDS ORDERED: SODIUM CHLORIDE 0.9% 1,000 ML IV STA (10:23)
[2022-01-14] MEDS ORDERED: KETOROLAC 15 MG/ML 1 ML VIAL IVP STA (10:24)
--- NOTE | 2022-01-14 10:28 | ED ---
Nausea/Vomiting/Diarrhea HPI - General Chief complaint: Nausea/Vomiting/Diarrhea Stated complaint: vomiting Time Seen by Provider: 01/14/22 10:09 Source: patient, RN notes reviewed Mode of arrival: ambulatory Limitations: no limitations - History of Present Illness Initial comments: This is a 26-year-old female who presents to the emergency department for abdominal pain, nausea, and vomiting. States that the symptoms started last night. The abdominal pain is described as being diffuse and she is unable to localize it to any area. This does not feel the same as when she had pancreatitis last month. She is unable to keep anything down. Denies any fevers or sick contacts. Denies any fevers, chills, sore throat, cough, dyspnea, chest pain, palpitations, back pain, or headaches. MD complaint: nausea, vomiting, diarrhea, abdominal pain Onset/Timin -: days(s) Associated Abdominal Pain: Yes Location: diffuse - Related Data Home Medications Medication Instructions Recorded Confirmed Famotidine [Pepcid] 20 mg PO DAILY 12/18/21 01/14/22 Previous Rx's Medication Instructions Recorded Acetaminophen Tab [Tylenol] 650 mg PO Q6HR PRN tab 12/24/21 Ibuprofen [Motrin] 600 mg PO Q8HR PRN #30 tab 12/24/21 Ketorolac [Toradol] 10 mg PO Q6HR PRN #12 tab 01/14/22 Metoclopramide [Reglan] 10 mg PO Q6H PRN #20 tab 01/14/22 Ondansetron Odt [Zofran Odt] 4 mg PO Q8HR PRN #20 tab 01/14/22 Allergies Allergy/AdvReac Type Severity Reaction Status Date / Time No Known Allergies Allergy Verified 01/14/22 12:51 Review of Systems ROS Statement: Those systems with pertinent positive or pertinent negative responses have been documented in the HPI. ROS Other: All systems not noted in ROS Statement are negative. Past Medical History Past Medical History: GERD/Reflux Additional Past Medical History / Comment(s): MIGRAINES, BACK PAIN History of Any Multi-Drug Resistant Organisms: None Reported Past Surgical History: Hernia Repair Past Anesthesia/Blood Transfusion Reactions: Motion Sickness Additional Past Anesthesia/Blood Transfusion Reaction / Comment(s): NO ANESTHESIA HX Past Psychological History: No Psychological Hx Reported Smoking Status: Never smoker Past Alcohol Use History: None Reported Past Drug Use History: Marijuana - Past Family History Mother Family Medical History: No Reported History General Exam Limitations: no limitations General appearance: alert, in distress Head exam: Present: atraumatic, normocephalic, normal inspection Respiratory exam: Present: normal lung sounds bilaterally. Absent: respiratory distress, wheezes, rales, rhonchi, stridor Cardiovascular Exam: Present: regular rate, normal rhythm, normal heart sounds. Absent: systolic murmur, diastolic murmur, rubs, gallop, clicks GI/Abdominal exam: Present: soft, tenderness (diffuse), hyperactive bowel sounds Neurological exam: Present: alert, oriented X3, CN II-XII intact Psychiatric exam: Present: normal affect, normal mood Skin exam: Present: warm, dry, intact, normal color. Absent: rash Course Vital Signs 01/14/22 09:56 Temperature 98.5 F Pulse Rate 78 Respiratory 20 Rate O2 Sat by Pulse 99 Oximetry Medical Decision Making - Medical Decision Making This is a 26-year-old female who presents to the emergency department for nausea, vomiting, and abdominal pain. Baseline lab work obtained and the patient was given IV fluids, Zofran, Toradol, and Benadryl. Symptoms improved temporarily, and shortly afterwards the nausea and pain returned. Given the difficulty with controlling her symptoms and the acute transaminitis on lab work, computed tomography scan of the abdomen and pelvis was obtained. This redemonstrated the moderate to large hiatal hernia and no other acute findings to account for the patient's symptoms. Given that the patient does smoke marijuana regularly, this may be related to cannabinoid hyperemesis syndrome. She was given a dose of Dilaudid, compazine, and Haldol, which she states improved her symptoms. Believes that the abdominal pain is related to the retching. Patient feels stable for discharge home. Prescription for Reglan and Zofran provided, as well as Toradol for the pain. She is instructed to avoid taking [id number] ibuprofen or other anti-inflammatories with the Toradol. Also instructed her to remain well-hydrated and slowly advance her diet as tolerated. Return precautions reviewed in depth, the patient is instructed to return to the emergency department with any new, worsening, or concerning symptoms. Patient verbalized understanding. This case was discussed in detail with the attending ED physician. Presentation, findings, and treatment plan discussed in detail as well. - Lab Data Result diagrams: 01/14/22 10:42 01/14/22 10:42 Lab Results 01/14/22 01/14/22 01/14/22 Range/Units 10:42 10:42 10:42 WBC 9.0 (3.8-10.6) k/uL RBC 5.29 (3.80-5.40) m/uL Hgb 15.7 D (11.4-16.0) gm/dL Hct 46.3 H (34.0-46.0) % MCV 87.5 (80.0-100.0) fL MCH 29.8 (25.0-35.0) pg MCHC 34.0 (31.0-37.0) g/dL RDW 12.4 (11.5-15.5) % Plt Count 255 (150-450) k/uL MPV 9.3 Neutrophils % 78 % Lymphocytes % 16 % Monocytes % 3 % Eosinophils % 1 % Basophils % 1 % Neutrophils # 7.0 (1.3-7.7) k/uL Lymphocytes # 1.5 (1.0-4.8) k/uL Monocytes # 0.2 (0-1.0) k/uL Eosinophils # 0.1 (0-0.7) k/uL Basophils # 0.0 (0-0.2) k/uL Sodium 141 (137-145) mmol/L Potassium 4.0 (3.5-5.1) mmol/L Chloride 103 (98-107) mmol/L Carbon Dioxide 19 L (22-30) mmol/L Anion Gap 19 mmol/L BUN 9 (7-17) mg/dL Creatinine 0.69 (0.52-1.04) mg/dL Est GFR (CKD-EPI)AfAm >90 (>60 ml/min/1.73 sqM) Est GFR (CKD-EPI)NonAf >90 (>60 ml/min/1.73 sqM) Glucose 143 H (74-99) mg/dL Calcium 9.9 (8.4-10.2) mg/dL Total Bilirubin 0.5 (0.2-1.3) mg/dL AST 45 H (14-36) U/L ALT 63 H (4-34) U/L Alkaline Phosphatase 79 (38-126) U/L Total Protein 8.3 H (6.3-8.2) g/dL Albumin 5.3 H (3.5-5.0) g/dL Amylase 104 (30-110) U/L Lipase 126 (23-300) U/L HCG, Qual Coronavirus (PCR) Not Detected (Not Detectd) 01/14/22 Range/Units 10:42 WBC (3.8-10.6) k/uL RBC (3.80-5.40) m/uL Hgb (11.4-16.0) gm/dL Hct (34.0-46.0) % MCV (80.0-100.0) fL MCH (25.0-35.0) pg MCHC (31.0-37.0) g/dL RDW (11.5-15.5) % Plt Count (150-450) k/uL MPV Neutrophils % % Lymphocytes % % Monocytes % % Eosinophils % % Basophils % % Neutrophils # (1.3-7.7) k/uL Lymphocytes # (1.0-4.8) k/uL Monocytes # (0-1.0) k/uL Eosinophils # (0-0.7) k/uL Basophils # (0-0.2) k/uL Sodium (137-145) mmol/L Potassium (3.5-5.1) mmol/L Chloride (98-107) mmol/L Carbon Dioxide (22-30) mmol/L Anion Gap mmol/L BUN (7-17) mg/dL Creatinine (0.52-1.04) mg/dL Est GFR (CKD-EPI)AfAm (>60 ml/min/1.73 sqM) Est GFR (CKD-EPI)NonAf (>60 ml/min/1.73 sqM) Glucose (74-99) mg/dL Calcium (8.4-10.2) mg/dL Total Bilirubin (0.2-1.3) mg/dL AST (14-36) U/L ALT (4-34) U/L Alkaline Phosphatase (38-126) U/L Total Protein (6.3-8.2) g/dL Albumin (3.5-5.0) g/dL Amylase (30-110) U/L Lipase (23-300) U/L HCG, Qual Not Detected Coronavirus (PCR) (Not Detectd) - Radiology Data Radiology results: report reviewed, image reviewed Disposition Clinical Impression: Abdominal pain, Nausea and vomiting Disposition: HOME SELF-CARE Instructions (If sedation given, give patient instructions): Acute Nausea and Vomiting (ED), Abdominal Pain (ED) Additional Instructions: Return to the emergency department with any new, worsening, or concerning symptoms. You can alternate with the Reglan and Zofran as needed for nausea and vomiting. The Toradol can be taken as needed for pain relief. Make sure that you remain well-hydrated and slowly advance your diet as tolerated. Follow up with your primary care provider in 1-2 days. Prescriptions: Metoclopramide [Reglan] 10 mg PO Q6H PRN #20 tab PRN Reason: Nausea And Vomiting Ketorolac [Toradol] 10 mg PO Q6HR PRN #12 tab PRN Reason: Pain Ondansetron Odt [Zofran Odt] 4 mg PO Q8HR PRN #20 tab PRN Reason: Nausea And Vomiting Is patient prescribed a controlled substance at d/c from ED?: No Referrals: Terry Rivera MD [Primary Care Provider] - 1-2 days
[2022-01-14 10:55] LABS: Basophils % (A) 1 %; Eosinophils # (A) 0.1 k/uL (0-0.7); Eosinophils % (A) 1 %; HCT 46.3 % (34.0-46.0); Lymphocytes # (A) 1.5 k/uL (1.0-4.8); Lymphocytes % (A) 16 %; MCH 29.8 pg (25.0-35.0); MCV 87.5 fL (80.0-100.0); Mean Platelet Volume 9.3; Monocytes # (A) 0.2 k/uL (0-1.0); Monocytes % (A) 3 %; Neutrophils % (A) 78 %; Platelet Count 255 k/uL (150-450); RBC 5.29 m/uL (3.80-5.40); RDW 12.4 % (11.5-15.5)
[2022-01-14 11:02] LABS: HGB 15.7 gm/dL (11.4-16.0)
[2022-01-14 11:29] LABS: ALT 63 U/L (4-34); AST 45 U/L (14-36); African American GFR (CKD) >90 (>60 ml/min/1.73 sqM); Albumin 5.3 g/dL (3.5-5.0); Alkaline Phosphatase 79 U/L (38-126); Amylase 104 U/L (30-110); Anion Gap 19 mmol/L; Blood Urea Nitrogen 9 mg/dL (7-17); Calcium 9.9 mg/dL (8.4-10.2); Carbon Dioxide 19 mmol/L (22-30); Chloride 103 mmol/L (98-107); Glucose 143 mg/dL (74-99); Lipase 126 U/L (23-300); Non-African American GFR(CKD) >90 (>60 ml/min/1.73 sqM); Sodium 141 mmol/L (137-145); Total Bilirubin 0.5 mg/dL (0.2-1.3); Total Protein 8.3 g/dL (6.3-8.2)
[2022-01-14] MEDS ORDERED: METOCLOPRAMIDE 5 MG/ML 2 ML VIAL IVP STA (11:50)
[2022-01-14] MEDS ORDERED: HALOPERIDOL LACTATE 5 MG/ML 1 ML VIAL IVP ONE (13:07)
[2022-01-14] MEDS ORDERED: HYDROmorphone 0.5 MG/0.5 ML SYRINGE IVP STA (13:07)
[2022-01-14] MEDS ORDERED: PROCHLORPERAZINE INJ 10 MG/2 ML VIAL IVP STA (13:08)
--- NOTE | 2022-01-14 14:41 | CT ---
EXAMINATION TYPE: CT abdomen pelvis w con DATE OF EXAM: 01/14/2022 COMPARISON: 12/18/2021 HISTORY: Upper abdominal pain CT DLP: 571 mGycm Automated exposure control for dose reduction was used. TECHNIQUE: Helical acquisition of images was performed from the lung bases through the pelvis. CONTRAST: Performed without Oral Contrast and with IV Contrast, patient injected with 100 mL of Isovue 300. FINDINGS: Lung bases are clear. There is a moderate to large hiatal hernia. There are surgical absence of gallbladder and no biliary ductal dilatation. There is no organomegaly or focal mass with liver, pancreas, spleen or adrenal glands. The kidneys excrete contrast promptly and symmetrically and there is no solid renal mass or hydroneph rosis. There is no retroperitoneal adenopathy or hemorrhage and the caliber of the abdominal aorta is normal . Bowel loops are normal in caliber is no dilatation or obstruction. No inflammatory changes identified within the bowel wall or mesentery. There is no pelvic mass, free fluid, abscess or adenopathy. The osseous structures are intact. IMPRESSION: 1. Moderate to large hiatal hernia. 2. cholecystectomy 3. No acute changes within the abdomen or pelvis.
[2022-01-14 16:02] VITALS: BP 99/58; PULSE 72; RESP 18
[2022-01-14 16:08] LABS: Appearance,Urine Clear (Clear); Bilirubin,Urine Negative (Negative); Blood,Urine Negative (Negative); Color,Urine Yellow; Glucose,Urine (UA) Negative (Negative); Ketones,Urine 3+ (Negative); Leukocyte Esterase,Urine Negative (Negative); Mucus,Urine Rare /hpf; Nitrite,Urine Negative (Negative); Protein,Urine 1+ (Negative); RBC,Urine 3 /hpf (0-5); Squamous Epithelial Cell,Urine 6 /hpf (0-4); Urobilinogen,Urine <2.0 mg/dL (<2.0); WBC,Urine 1 /hpf (0-5)
[2022-01-14 16:12] LABS: Amphetamine Screen,Urine Not Detected (NotDetected); Benzodiazepines Screen,Urine Detected (NotDetected); Cocaine Screen,Urine Not Detected (NotDetected); Opiate Screen,Urine Detected (NotDetected); Phencyclidine Screen,Urine Not Detected (NotDetected); Tricyclic Antidepressant,Urine Detected (NotDetected); Urn Cannabinoid Scrn Detected (NotDetected)
[2022-01-14 16:13] LABS: Barbiturate Screen,Urine Not Detected (NotDetected); Methadone Screen, Urine Not Detected (NotDetected); Oxycodone Screen, Urine Not Detected (NotDetected)
[2022-01-14 16:27] LABS: Specific Gravity,Urine >1.050 (1.001-1.035)
== END 2022-01-14 16:01 | disposition home or self-care (01) ==
LOC: EC 09:49
DX: R10.9 Unspecified abdominal pain (principal); R11.2 Nausea with vomiting, unspecified; Z20.822 Contact with and (suspected) exposure to COVID-19
CPT/HCPCS: 36415; 80053; 82150; 83690; 85025; 81001; 84703; 80306; 87635; 74177; 99284; 96374; 96375; 96361; J1200; J0780; J1630; J2765; J2405; J1885; J1170; Q9967

== ENCOUNTER 2022-01-16 11:19 | Emergency (ER) | payer OTHER ==
[2022-01-16] MEDS ORDERED: SODIUM CHLORIDE 0.9% 1,000 ML IV STA (12:00)
[2022-01-16] MEDS ORDERED: ONDANSETRON 4 MG/2 ML VIAL IVP STA (12:00)
[2022-01-16] MEDS ORDERED: KETOROLAC 15 MG/ML 1 ML VIAL IVP STA (12:00)
[2022-01-16] MEDS ORDERED: HYDROmorphone 0.5 MG/0.5 ML SYRINGE IVP STA (12:00)
[2022-01-16] MEDS ORDERED: HALOPERIDOL LACTATE 5 MG/ML 1 ML VIAL IVP ONE (12:00)
[2022-01-16] MEDS ORDERED: PANTOPRAZOLE 40 MG/10 ML VIAL IVP STA (12:01)
[2022-01-16 12:30] LABS: Appearance,Urine Cloudy (Clear); Bacteria,Urine Rare /hpf; Bilirubin,Urine 1+ (Negative); Blood,Urine Negative (Negative); Color,Urine Yellow; Glucose,Urine (UA) Negative (Negative); Ketones,Urine 4+ (Negative); Leukocyte Esterase,Urine Negative (Negative); Mucus,Urine Many /hpf; Nitrite,Urine Negative (Negative); Protein,Urine 1+ (Negative); RBC,Urine 2 /hpf (0-5); Specific Gravity,Urine 1.038 (1.001-1.035); Squamous Epithelial Cell,Urine 8 /hpf (0-4); WBC,Urine 3 /hpf (0-5)
[2022-01-16 12:39] LABS: ALT 42 U/L (4-34); African American GFR (CKD) >90 (>60 ml/min/1.73 sqM); Albumin 5.2 g/dL (3.5-5.0); Amylase 82 U/L (30-110); Anion Gap 17 mmol/L; Blood Urea Nitrogen 11 mg/dL (7-17); Calcium 9.4 mg/dL (8.4-10.2); Carbon Dioxide 19 mmol/L (22-30); Chloride 101 mmol/L (98-107); Glucose 129 mg/dL (74-99); Lipase 94 U/L (23-300); Non-African American GFR(CKD) >90 (>60 ml/min/1.73 sqM); Sodium 137 mmol/L (137-145)
[2022-01-16 12:54] LABS: Basophils % (A) 0 %; Eosinophils # (A) 0.1 k/uL (0-0.7); Eosinophils % (A) 1 %; HCT 40.3 % (34.0-46.0); HGB 14.3 gm/dL (11.4-16.0); Lymphocytes # (A) 0.9 k/uL (1.0-4.8); Lymphocytes % (A) 9 %; MCH 30.5 pg (25.0-35.0); MCHC 35.4 g/dL (31.0-37.0); Monocytes # (A) 0.2 k/uL (0-1.0); Monocytes % (A) 2 %; Neutrophils # (A) 8.9 k/uL (1.3-7.7); Neutrophils % (A) 87 %; Platelet Count 284 k/uL (150-450); RBC 4.69 m/uL (3.80-5.40); RDW 12.3 % (11.5-15.5); WBC 10.1 k/uL (3.8-10.6)
[2022-01-16 13:05] LABS: AST 34 U/L (14-36); Alkaline Phosphatase 65 U/L (38-126); Potassium 3.6 mmol/L (3.5-5.1)
[2022-01-16] MEDS ORDERED: SODIUM CHLORIDE 0.9% 500 ML 500 ML IV STA (13:33)
--- NOTE | 2022-01-16 13:51 | ED ---
Nausea/Vomiting/Diarrhea HPI - General Chief complaint: Nausea/Vomiting/Diarrhea Stated complaint: Vomiting Time Seen by Provider: 01/16/22 11:55 Source: patient, RN notes reviewed Mode of arrival: ambulatory Limitations: no limitations - History of Present Illness Initial comments: This is a 26-year-old female who presents to the emergency department for nausea and vomiting. She has been here multiple times for similar symptoms, most recently 2 days ago. Yesterday, she states that she felt much better. Today, she had a headache, and that led to her feeling nauseous and subsequently vomiting. She is on been unable to control her vomiting since this occurred. She has not taken Zofran or Reglan, as she does not think that she will be able to keep them down. Denies having headaches with any regular frequency. She has diffuse abdominal pain from all of the retching, denies any localization of pain. Denies any fevers, chills, sore throat, cough, dyspnea, chest pain, palpitations, diarrhea, or back pain. MD complaint: nausea, vomiting, abdominal pain Associated Abdominal Pain: Yes Location: diffuse - Related Data Home Medications Medication Instructions Recorded Confirmed Famotidine [Pepcid] 20 mg PO DAILY 12/18/21 01/14/22 Previous Rx's Medication Instructions Recorded Acetaminophen Tab [Tylenol] 650 mg PO Q6HR PRN tab 12/24/21 Ibuprofen [Motrin] 600 mg PO Q8HR PRN #30 tab 12/24/21 Ketorolac [Toradol] 10 mg PO Q6HR PRN #12 tab 01/14/22 Metoclopramide [Reglan] 10 mg PO Q6H PRN #20 tab 01/14/22 Ondansetron Odt [Zofran Odt] 4 mg PO Q8HR PRN #20 tab 01/14/22 ZOLMitriptan [Zomig ZMT] 5 mg PO DIRECTED PRN #15 tab 01/16/22 Allergies Allergy/AdvReac Type Severity Reaction Status Date / Time No Known Allergies Allergy Verified 01/16/22 11:47 Review of Systems ROS Statement: Those systems with pertinent positive or pertinent negative responses have been documented in the HPI. ROS Other: All systems not noted in ROS Statement are negative. Past Medical History Past Medical History: GERD/Reflux Additional Past Medical History / Comment(s): MIGRAINES, BACK PAIN History of Any Multi-Drug Resistant Organisms: None Reported Past Surgical History: Hernia Repair Past Anesthesia/Blood Transfusion Reactions: Motion Sickness Additional Past Anesthesia/Blood Transfusion Reaction / Comment(s): NO ANESTHESIA HX Past Psychological History: No Psychological Hx Reported Smoking Status: Never smoker Past Alcohol Use History: None Reported Past Drug Use History: Marijuana - Past Family History Mother Family Medical History: No Reported History General Exam Limitations: no limitations General appearance: alert, in distress Head exam: Present: atraumatic, normocephalic, normal inspection Respiratory exam: Present: normal lung sounds bilaterally. Absent: respiratory distress, wheezes, rales, rhonchi, stridor Cardiovascular Exam: Present: regular rate, normal rhythm, normal heart sounds. Absent: systolic murmur, diastolic murmur, rubs, gallop, clicks GI/Abdominal exam: Present: soft, hyperactive bowel sounds. Absent: distended, tenderness, guarding, rebound, rigid Neurological exam: Present: alert, oriented X3, CN II-XII intact Psychiatric exam: Present: normal affect, normal mood Skin exam: Present: warm, dry, intact, normal color. Absent: rash Course Vital Signs 01/16/22 01/16/22 11:42 15:24 Temperature 97.4 F L 98.9 F Pulse Rate 77 74 Respiratory 18 16 Rate Blood Pressure 124/72 106/61 O2 Sat by Pulse 100 98 Oximetry Medical Decision Making - Medical Decision Making This is a 26-year-old female who presents to the emergency department for nausea and vomiting. Lab work obtained, which is consistent with dehydration due to the elevated lactic acid. Her urine also has 4+ ketones, consistent with the uncontrollable nausea and vomiting. Patient was given IV fluids, Toradol, Zofran, Haldol, Dilaudid, and Protonix. Patient reported resolution of symptoms following medication administration. States that she typically only treats her headaches with Excedrin Migraine and has never been given a preventative or abortive treatment. Prescription for Zomig provided. Advised she take this at the onset of a migraine and repeat the dose in 2 hours if symptoms do not resolve. Based on her history, these symptoms were most likely triggered by the headache, however there still may be a component of the cannabinoid hyperemesis syndrome that is contributing to her symptoms, especially with how frequently this has been occurring. She will continue to alternate with the Reglan and Zofran that she has at home for any nausea and vomiting. Reminded her to remain well-hydrated and slowly advance her diet as tolerated. Return precautions reviewed in depth, the patient is instructed to return to the emergency department with any new, worsening, or concerning symptoms. Patient verbalized understanding. This case was discussed in detail with the attending ED physician. Presentation, findings, and treatment plan discussed in detail as well. - Lab Data Result diagrams: 01/16/22 12:40 01/16/22 12:11 Lab Results 01/16/22 01/16/22 01/16/22 Range/Units 12:11 12:11 12:11 WBC (3.8-10.6) k/uL RBC (3.80-5.40) m/uL Hgb (11.4-16.0) gm/dL Hct (34.0-46.0) % MCV (80.0-100.0) fL MCH (25.0-35.0) pg MCHC (31.0-37.0) g/dL RDW (11.5-15.5) % Plt Count (150-450) k/uL MPV Neutrophils % % Lymphocytes % % Monocytes % % Eosinophils % % Basophils % % Neutrophils # (1.3-7.7) k/uL Lymphocytes # (1.0-4.8) k/uL Monocytes # (0-1.0) k/uL Eosinophils # (0-0.7) k/uL Basophils # (0-0.2) k/uL Sodium 137 (137-145) mmol/L Potassium 3.6 (3.5-5.1) mmol/L Chloride 101 (98-107) mmol/L Carbon Dioxide 19 L (22-30) mmol/L Anion Gap 17 mmol/L BUN 11 (7-17) mg/dL Creatinine 0.58 (0.52-1.04) mg/dL Est GFR (CKD-EPI)AfAm >90 (>60 ml/min/1.73 sqM) Est GFR (CKD-EPI)NonAf >90 (>60 ml/min/1.73 sqM) Glucose 129 H (74-99) mg/dL Lactic Ac Sepsis Rflx Plasma Lactic Acid Ilya (0.7-2.0) mmol/L Calcium 9.4 (8.4-10.2) mg/dL Total Bilirubin 1.0 (0.2-1.3) mg/dL AST 34 (14-36) U/L ALT 42 H (4-34) U/L Alkaline Phosphatase 65 (38-126) U/L Total Protein 8.0 (6.3-8.2) g/dL Albumin 5.2 H (3.5-5.0) g/dL Amylase 82 (30-110) U/L Lipase 94 (23-300) U/L Urine Color Yellow Urine Appearance Cloudy H (Clear) Urine pH 6.0 (5.0-8.0) Ur Specific [place] 1.038 H (1.001-1.035) Urine Protein 1+ H (Negative) Urine Glucose (UA) Negative (Negative) Urine Ketones 4+ H (Negative) Urine Blood Negative (Negative) Urine Nitrite Negative (Negative) Urine Bilirubin 1+ H (Negative) Urine Urobilinogen 4.0 (<2.0) mg/dL Ur Leukocyte Esterase Negative (Negative) Urine RBC 2 (0-5) /hpf Urine WBC 3 (0-5) /hpf Ur Squamous Epith Cells 8 H (0-4) /hpf Urine Bacteria Rare H (None) /hpf Urine Mucus Many H (None) /hpf Urine HCG, Qual Not Detected (Not Detectd) 01/16/22 01/16/22 01/16/22 Range/Units 12:11 12:40 13:07 WBC 10.1 (3.8-10.6) k/uL RBC 4.69 (3.80-5.40) m/uL Hgb 14.3 (11.4-16.0) gm/dL Hct 40.3 (34.0-46.0) % MCV 86.0 (80.0-100.0) fL MCH 30.5 (25.0-35.0) pg MCHC 35.4 (31.0-37.0) g/dL RDW 12.3 (11.5-15.5) % Plt Count 284 (150-450) k/uL MPV 9.0 Neutrophils % 87 % Lymphocytes % 9 % Monocytes % 2 % Eosinophils % 1 % Basophils % 0 % Neutrophils # 8.9 H (1.3-7.7) k/uL Lymphocytes # 0.9 L (1.0-4.8) k/uL Monocytes # 0.2 (0-1.0) k/uL Eosinophils # 0.1 (0-0.7) k/uL Basophils # 0.0 (0-0.2) k/uL Sodium (137-145) mmol/L Potassium (3.5-5.1) mmol/L Chloride (98-107) mmol/L Carbon Dioxide (22-30) mmol/L Anion Gap mmol/L BUN (7-17) mg/dL Creatinine (0.52-1.04) mg/dL Est GFR (CKD-EPI)AfAm (>60 ml/min/1.73 sqM) Est GFR (CKD-EPI)NonAf (>60 ml/min/1.73 sqM) Glucose (74-99) mg/dL Lactic Ac Sepsis Rflx Y Plasma Lactic Acid Ilya 2.6 H* (0.7-2.0) mmol/L Calcium (8.4-10.2) mg/dL Total Bilirubin (0.2-1.3) mg/dL AST (14-36) U/L ALT (4-34) U/L Alkaline Phosphatase (38-126) U/L Total Protein (6.3-8.2) g/dL Albumin (3.5-5.0) g/dL Amylase (30-110) U/L Lipase (23-300) U/L Urine Color Urine Appearance (Clear) Urine pH (5.0-8.0) Ur Specific [place] (1.001-1.035) Urine Protein (Negative) Urine Glucose (UA) (Negative) Urine Ketones (Negative) Urine Blood (Negative) Urine Nitrite (Negative) Urine Bilirubin (Negative) Urine Urobilinogen (<2.0) mg/dL Ur Leukocyte Esterase (Negative) Urine RBC (0-5) /hpf Urine WBC (0-5) /hpf Ur Squamous Epith Cells (0-4) /hpf Urine Bacteria (None) /hpf Urine Mucus (None) /hpf Urine HCG, Qual (Not Detectd) Disposition Clinical Impression: Dehydration, Nausea and vomiting Disposition: HOME SELF-CARE Instructions (If sedation given, give patient instructions): Migraine Headache (ED), Acute Nausea and Vomiting (ED) Additional Instructions: Return to the emergency department with any new, worsening, or concerning symptoms. Take the Zolmitriptan at the onset of a migraine. You can repeat the dose in 2 hours if symptoms do not improve. Do not take more than 2 doses in one day. Continue to use Reglan and Zofran as needed for any nausea and vomiting. Make sure that you remain well-hydrated. Slowly advance your diet as tolerated. Follow up with your primary care provider in 1-2 days. Prescriptions: ZOLMitriptan [Zomig ZMT] 5 mg PO DIRECTED PRN #15 tab PRN Reason: Migraine Headache Is patient prescribed a controlled substance at d/c from ED?: No Referrals: Terry Rivera MD [Primary Care Provider] - 1-2 days
[2022-01-16 15:26] VITALS: BP 106/61; PULSE 74; RESP 16; TEMP 98.9
== END 2022-01-16 15:25 | disposition home or self-care (01) ==
LOC: EC 11:19
DX: E86.0 Dehydration (principal); R11.2 Nausea with vomiting, unspecified; K21.9 Gastro-esophageal reflux disease without esophagitis; F12.90 Cannabis use, unspecified, uncomplicated; Z79.899 Other long term (current) drug therapy
CPT/HCPCS: 99284 ×2; 96374 ×2; 96375 ×5; 96361 ×3; 36415; 80053; 82150; 83605; 83690; 85025; 81001; 81025; J1630; J2405; J1885; C9113; J1170

== ENCOUNTER 2022-01-18 03:48 | Emergency (ER) | payer OTHER ==
[2022-01-18] MEDS ORDERED: SODIUM CHLORIDE 0.9% 1,000 ML IV STA (04:38)
[2022-01-18] MEDS ORDERED: METOCLOPRAMIDE 5 MG/ML 2 ML VIAL IVP STA (04:38)
[2022-01-18] MEDS ORDERED: MORPHINE SULFATE 4 MG/ML SYRINGE IV STA (04:38)
[2022-01-18] MEDS ORDERED: DEXTROSE 5%-0.45% NACL 1,000 ML IV ONE (04:39)
--- NOTE | 2022-01-18 05:03 | ED ---
Nausea/Vomiting/Diarrhea HPI - General Chief complaint: Nausea/Vomiting/Diarrhea Stated complaint: vomiting Time Seen by Provider: 01/18/22 04:20 Source: family Mode of arrival: ambulatory Limitations: no limitations - History of Present Illness Initial comments: This patient is 26-year-old woman who presents to be evaluated for nausea vomiting and abdominal pain. She states the symptoms have been present approximately a month going back to when she had been seen here for acute cholecystitis and had her gallbladder removed. MD complaint: nausea, vomiting Onset/Timin -: month(s) Description of Vomiting: food contents Associated Abdominal Pain: Yes Radiation: none Severity: moderate Quality: dull Consistency: intermittent Improves with: none Worsens with: none Associated Symptoms: nausea/vomiting - Related Data Home Medications Medication Instructions Recorded Confirmed Famotidine [Pepcid] 20 mg PO DAILY 12/18/21 01/14/22 Previous Rx's Medication Instructions Recorded Acetaminophen Tab [Tylenol] 650 mg PO Q6HR PRN tab 12/24/21 Ibuprofen [Motrin] 600 mg PO Q8HR PRN #30 tab 12/24/21 Ketorolac [Toradol] 10 mg PO Q6HR PRN #12 tab 01/14/22 Metoclopramide [Reglan] 10 mg PO Q6H PRN #20 tab 01/14/22 Ondansetron Odt [Zofran Odt] 4 mg PO Q8HR PRN #20 tab 01/14/22 ZOLMitriptan [Zomig ZMT] 5 mg PO DIRECTED PRN #15 tab 01/16/22 Promethazine [Phenergan] 25 mg PO Q6HR PRN #12 tablet 01/18/22 Allergies Allergy/AdvReac Type Severity Reaction Status Date / Time No Known Allergies Allergy Verified 01/18/22 03:58 Review of Systems ROS Statement: Those systems with pertinent positive or pertinent negative responses have been documented in the HPI. ROS Other: All systems not noted in ROS Statement are negative. Constitutional: Denies: fever, chills, weakness Respiratory: Denies: cough, dyspnea Cardiovascular: Denies: chest pain, palpitations, edema Gastrointestinal: Reports: abdominal pain, nausea, vomiting. Denies: diarrhea, constipation, hematemesis, melena, hematochezia Genitourinary: Denies: dysuria, hematuria, discharge, abnormal menses Musculoskeletal: Denies: back pain Skin: Denies: rash Neurological: Denies: headache, weakness Past Medical History Past Medical History: GERD/Reflux Additional Past Medical History / Comment(s): MIGRAINES, BACK PAIN History of Any Multi-Drug Resistant Organisms: None Reported Past Surgical History: Cholecystectomy, Hernia Repair Past Anesthesia/Blood Transfusion Reactions: Motion Sickness Additional Past Anesthesia/Blood Transfusion Reaction / Comment(s): NO ANESTHESIA HX Past Psychological History: No Psychological Hx Reported Smoking Status: Never smoker Past Alcohol Use History: None Reported Past Drug Use History: Marijuana - Past Family History Mother Family Medical History: No Reported History General Exam Limitations: no limitations General appearance: alert, in no apparent distress Head exam: Present: atraumatic, normocephalic Eye exam: Present: normal appearance. Absent: scleral icterus, conjunctival injection ENT exam: Present: normal oropharynx Neck exam: Present: normal inspection Respiratory exam: Present: normal lung sounds bilaterally. Absent: respiratory distress, wheezes, rales, rhonchi, stridor Cardiovascular Exam: Present: regular rate, normal rhythm, normal heart sounds. Absent: systolic murmur, diastolic murmur, rubs, gallop GI/Abdominal exam: Present: soft, diminished bowel sounds. Absent: distended, tenderness, guarding, rebound, rigid, mass, pulsatile mass, hernia Extremities exam: Present: normal inspection, normal capillary refill. Absent: pedal edema, calf tenderness Back exam: Present: normal inspection. Absent: CVA tenderness (R), CVA tenderness (L) Neurological exam: Present: alert Skin exam: Present: warm, dry, intact, normal color. Absent: rash Course Vital Signs 01/18/22 01/18/22 01/18/22 03:56 06:52 07:42 Temperature 98.3 F Pulse Rate 66 67 73 Respiratory 18 18 16 Rate Blood Pressure 154/90 141/88 118/65 O2 Sat by Pulse 96 99 100 Oximetry 01/18/22 07:46 Temperature 97.8 F Pulse Rate 72 Respiratory 16 Rate Blood Pressure 118/65 O2 Sat by Pulse 100 Oximetry Medical Decision Making - Medical Decision Making Patient is 26-year-old woman with persistent nausea vomiting abdominal pain. Her symptoms have resolved with treatment. She does have previous established follow-up with her surgeon today. Discussed appropriate further care and return parameters. - Lab Data Result diagrams: 01/18/22 04:59 01/18/22 04:59 Lab Results 01/18/22 01/18/22 01/18/22 Range/Units 04:59 04:59 04:59 WBC 7.2 (3.8-10.6) k/uL RBC 4.65 (3.80-5.40) m/uL Hgb 14.2 (11.4-16.0) gm/dL Hct 39.6 (34.0-46.0) % MCV 85.2 (80.0-100.0) fL MCH 30.4 (25.0-35.0) pg MCHC 35.8 (31.0-37.0) g/dL RDW 11.8 (11.5-15.5) % Plt Count 251 (150-450) k/uL MPV 9.3 Neutrophils % 75 % Lymphocytes % 18 % Monocytes % 4 % Eosinophils % 0 % Basophils % 1 % Neutrophils # 5.4 (1.3-7.7) k/uL Lymphocytes # 1.3 (1.0-4.8) k/uL Monocytes # 0.3 (0-1.0) k/uL Eosinophils # 0.0 (0-0.7) k/uL Basophils # 0.1 (0-0.2) k/uL Sodium 136 L (137-145) mmol/L Potassium 3.5 (3.5-5.1) mmol/L Chloride 101 (98-107) mmol/L Carbon Dioxide 16 L (22-30) mmol/L Anion Gap 19 mmol/L BUN 5 L (7-17) mg/dL Creatinine 0.59 (0.52-1.04) mg/dL Est GFR (CKD-EPI)AfAm >90 (>60 ml/min/1.73 sqM) Est GFR (CKD-EPI)NonAf >90 (>60 ml/min/1.73 sqM) Glucose 87 (74-99) mg/dL Calcium 9.4 (8.4-10.2) mg/dL Total Bilirubin 0.9 (0.2-1.3) mg/dL AST 21 (14-36) U/L ALT 28 (4-34) U/L Alkaline Phosphatase 68 (38-126) U/L Total Protein 7.3 (6.3-8.2) g/dL Albumin 4.9 (3.5-5.0) g/dL Amylase 95 (30-110) U/L Lipase 245 (23-300) U/L Urine Color Yellow Urine Appearance Clear (Clear) Urine pH 6.0 (5.0-8.0) Ur Specific [place] 1.029 (1.001-1.035) Urine Protein 1+ H (Negative) Urine Glucose (UA) Negative (Negative) Urine Ketones 4+ H (Negative) Urine Blood Trace H (Negative) Urine Nitrite Negative (Negative) Urine Bilirubin Negative (Negative) Urine Urobilinogen 2.0 (<2.0) mg/dL Ur Leukocyte Esterase Negative (Negative) Urine RBC 1 (0-5) /hpf Urine WBC 2 (0-5) /hpf Ur Squamous Epith Cells 3 (0-4) /hpf Hyaline Casts 7 H (0-2) /lpf Urine Mucus Many H (None) /hpf Urine HCG, Qual (Not Detectd) 01/18/22 Range/Units 04:59 WBC (3.8-10.6) k/uL RBC (3.80-5.40) m/uL Hgb (11.4-16.0) gm/dL Hct (34.0-46.0) % MCV (80.0-100.0) fL MCH (25.0-35.0) pg MCHC (31.0-37.0) g/dL RDW (11.5-15.5) % Plt Count (150-450) k/uL MPV Neutrophils % % Lymphocytes % % Monocytes % % Eosinophils % % Basophils % % Neutrophils # (1.3-7.7) k/uL Lymphocytes # (1.0-4.8) k/uL Monocytes # (0-1.0) k/uL Eosinophils # (0-0.7) k/uL Basophils # (0-0.2) k/uL Sodium (137-145) mmol/L Potassium (3.5-5.1) mmol/L Chloride (98-107) mmol/L Carbon Dioxide (22-30) mmol/L Anion Gap mmol/L BUN (7-17) mg/dL Creatinine (0.52-1.04) mg/dL Est GFR (CKD-EPI)AfAm (>60 ml/min/1.73 sqM) Est GFR (CKD-EPI)NonAf (>60 ml/min/1.73 sqM) Glucose (74-99) mg/dL Calcium (8.4-10.2) mg/dL Total Bilirubin (0.2-1.3) mg/dL AST (14-36) U/L ALT (4-34) U/L Alkaline Phosphatase (38-126) U/L Total Protein (6.3-8.2) g/dL Albumin (3.5-5.0) g/dL Amylase (30-110) U/L Lipase (23-300) U/L Urine Color Urine Appearance (Clear) Urine pH (5.0-8.0) Ur Specific [place] (1.001-1.035) Urine Protein (Negative) Urine Glucose (UA) (Negative) Urine Ketones (Negative) Urine Blood (Negative) Urine Nitrite (Negative) Urine Bilirubin (Negative) Urine Urobilinogen (<2.0) mg/dL Ur Leukocyte Esterase (Negative) Urine RBC (0-5) /hpf Urine WBC (0-5) /hpf Ur Squamous Epith Cells (0-4) /hpf Hyaline Casts (0-2) /lpf Urine Mucus (None) /hpf Urine HCG, Qual Not Detected (Not Detectd) Disposition Clinical Impression: Nausea and vomiting Disposition: HOME SELF-CARE Condition: Good Instructions (If sedation given, give patient instructions): Acute Nausea and Vomiting (ED) Prescriptions: Promethazine [Phenergan] 25 mg PO Q6HR PRN #12 tablet PRN Reason: Vomiting Is patient prescribed a controlled substance at d/c from ED?: No Referrals: Terry Rivera MD [Primary Care Provider] - 1-2 days
[2022-01-18 05:37] LABS: Basophils # (A) 0.1 k/uL (0-0.2); Basophils % (A) 1 %; Eosinophils % (A) 0 %; HCT 39.6 % (34.0-46.0); HGB 14.2 gm/dL (11.4-16.0); Lymphocytes # (A) 1.3 k/uL (1.0-4.8); Lymphocytes % (A) 18 %; MCH 30.4 pg (25.0-35.0); MCHC 35.8 g/dL (31.0-37.0); MCV 85.2 fL (80.0-100.0); Mean Platelet Volume 9.3; Monocytes # (A) 0.3 k/uL (0-1.0); Monocytes % (A) 4 %; Neutrophils # (A) 5.4 k/uL (1.3-7.7); Neutrophils % (A) 75 %; Platelet Count 251 k/uL (150-450); RBC 4.65 m/uL (3.80-5.40); RDW 11.8 % (11.5-15.5); WBC 7.2 k/uL (3.8-10.6)
[2022-01-18 05:56] LABS: ALT 28 U/L (4-34); AST 21 U/L (14-36); African American GFR (CKD) >90 (>60 ml/min/1.73 sqM); Albumin 4.9 g/dL (3.5-5.0); Alkaline Phosphatase 68 U/L (38-126); Amylase 95 U/L (30-110); Anion Gap 19 mmol/L; Blood Urea Nitrogen 5 mg/dL (7-17); Calcium 9.4 mg/dL (8.4-10.2); Carbon Dioxide 16 mmol/L (22-30); Chloride 101 mmol/L (98-107); Glucose 87 mg/dL (74-99); Lipase 245 U/L (23-300); Non-African American GFR(CKD) >90 (>60 ml/min/1.73 sqM); Potassium 3.5 mmol/L (3.5-5.1); Sodium 136 mmol/L (137-145); Total Bilirubin 0.9 mg/dL (0.2-1.3); Total Protein 7.3 g/dL (6.3-8.2)
[2022-01-18 06:02] LABS: Appearance,Urine Clear (Clear); Bilirubin,Urine Negative (Negative); Blood,Urine Trace (Negative); Color,Urine Yellow; Glucose,Urine (UA) Negative (Negative); Hyaline Casts,Urine 7 /lpf (0-2); Ketones,Urine 4+ (Negative); Leukocyte Esterase,Urine Negative (Negative); Mucus,Urine Many /hpf; Nitrite,Urine Negative (Negative); Protein,Urine 1+ (Negative); RBC,Urine 1 /hpf (0-5); Specific Gravity,Urine 1.029 (1.001-1.035); Squamous Epithelial Cell,Urine 3 /hpf (0-4); WBC,Urine 2 /hpf (0-5)
[2022-01-18] MEDS ORDERED: PROCHLORPERAZINE INJ 10 MG/2 ML VIAL IVP STA (06:47)
--- NOTE | 2022-01-18 06:49 | XR ---
EXAMINATION TYPE: XR KUB DATE OF EXAM: 01/18/2022 COMPARISON: NONE HISTORY: Pain TECHNIQUE: 2 view Upright FINDINGS: There is no sign of intestinal obstruction or pneumoperitoneum. Fecal pattern is normal. No evidence of a mass. Lung bases are clear. Bony structures are intact. IMPRESSION: Nonacute abdomen.
[2022-01-18 07:43] VITALS: BP 118/65; RESP 16
[2022-01-18 07:50] VITALS: PULSE 72; TEMP 97.8
== END 2022-01-18 07:50 | disposition home or self-care (01) ==
LOC: EC 03:48
DX: R11.2 Nausea with vomiting, unspecified (principal)
CPT/HCPCS: 36415; 80053; 82150; 83690; 85025; 81001; 81025; 74018; 99284; 96374; 96375; 96361; J2270; J0780; J2765

== ENCOUNTER 2022-01-19 05:05 | Observation (INO) | payer OTHER ==
[2022-01-19] MEDS ORDERED: diphenhydrAMINE 50 MG/ML 1 ML VIAL IVP STA (05:40)
[2022-01-19] MEDS ORDERED: SODIUM CHLORIDE 0.9% 1,000 ML IV STA ×2 (05:40→06:47)
[2022-01-19] MEDS ORDERED: HALOPERIDOL LACTATE 5 MG/ML 1 ML VIAL IVP STA (05:42)
[2022-01-19] MEDS ORDERED: FAMOTIDINE 20 MG/2 ML VIAL IV STA (05:42)
[2022-01-19 06:09] LABS: Basophils % (A) 1 %; Eosinophils # (A) 0.1 k/uL (0-0.7); Eosinophils % (A) 1 %; HCT 37.9 % (34.0-46.0); HGB 13.4 gm/dL (11.4-16.0); Lymphocytes # (A) 1.5 k/uL (1.0-4.8); Lymphocytes % (A) 20 %; MCH 29.5 pg (25.0-35.0); MCHC 35.3 g/dL (31.0-37.0); MCV 83.7 fL (80.0-100.0); Monocytes # (A) 0.3 k/uL (0-1.0); Monocytes % (A) 4 %; Neutrophils # (A) 5.4 k/uL (1.3-7.7); Neutrophils % (A) 73 %; Platelet Count 221 k/uL (150-450); RBC 4.53 m/uL (3.80-5.40); RDW 12.3 % (11.5-15.5); WBC 7.4 k/uL (3.8-10.6)
--- NOTE | 2022-01-19 06:15 | ED ---
General Adult HPI - General Chief complaint: Nausea/Vomiting/Diarrhea Stated complaint: Vomiting Time Seen by Provider: 01/19/22 05:21 Source: patient, RN notes reviewed, old records reviewed Mode of arrival: ambulatory Limitations: no limitations - History of Present Illness Initial comments: Patient is a 26-year-old female who presents emergency Department often complaining of nausea and vomiting. States it has been worse over the last week. Does have a history of a cholecystectomy, as well as daily marijuana use. Last used marijuana one week ago. Has been having frequent episodes of nonbloody emesis over the last week or so. Has been worse over the last day. Was seen here yesterday for similar complaints and felt improved after therapy. Was discharged home in stable condition but returns with continued emesis this evening. Denies any chest pain or shortness of breath. Endorses generalized abdominal discomfort. Denies fevers or chills. Denies any urinary complaints. Denies diarrhea. Denies vaginal bleeding or discharge. Presents for further evaluation of this time. States she is not . Patient does have a history of hiatal hernia, that is due to be repaired within the next 1-[address] Yusuf. - Related Data Home Medications Medication Instructions Recorded Confirmed Famotidine [Pepcid] 20 mg PO DAILY 12/18/21 01/14/22 Previous Rx's Medication Instructions Recorded Acetaminophen Tab [Tylenol] 650 mg PO Q6HR PRN tab 12/24/21 Ibuprofen [Motrin] 600 mg PO Q8HR PRN #30 tab 12/24/21 Ketorolac [Toradol] 10 mg PO Q6HR PRN #12 tab 01/14/22 Metoclopramide [Reglan] 10 mg PO Q6H PRN #20 tab 01/14/22 Ondansetron Odt [Zofran Odt] 4 mg PO Q8HR PRN #20 tab 01/14/22 ZOLMitriptan [Zomig ZMT] 5 mg PO DIRECTED PRN #15 tab 01/16/22 Promethazine [Phenergan] 25 mg PO Q6HR PRN #12 tablet 01/18/22 Allergies Allergy/AdvReac Type Severity Reaction Status Date / Time No Known Allergies Allergy Verified 01/19/22 05:14 Review of Systems ROS Statement: Those systems with pertinent positive or pertinent negative responses have been documented in the HPI. Review of Systems: CONST: Denies fever EYES: Denies blurry vision ENT: Denies nasal congestion C/V: Denies Chest pain RESP: Denies shortness of breath GI: Endorses generalized abdominal discomfort : Denies dysuria SKIN: Denies rash. MSK: Denies joint pain. NEURO: Denies headache ROS Other: All systems not noted in ROS Statement are negative. Past Medical History Past Medical History: GERD/Reflux Additional Past Medical History / Comment(s): MIGRAINES, BACK PAIN History of Any Multi-Drug Resistant Organisms: None Reported Past Surgical History: Cholecystectomy, Hernia Repair Past Anesthesia/Blood Transfusion Reactions: Motion Sickness Additional Past Anesthesia/Blood Transfusion Reaction / Comment(s): NO ANESTHESIA HX Past Psychological History: No Psychological Hx Reported Smoking Status: Never smoker Past Alcohol Use History: None Reported Past Drug Use History: Marijuana - Past Family History Mother Family Medical History: No Reported History General Exam - General Exam Comments Initial Comments: General: Appears in no acute distress. HEAD: Normal with no signs of head trauma. EYES: PERRLA, EOMI, conjunctiva normal, no discharge. ENT: Hearing grossly intact, normal oropharynx. RESPIRATORY: Clear breath sounds bilaterally. No wheezes, rales, or rhonchi. C/V: Regular rate and rhythm. S1 and S2 auscultated, no edema, peripheral pulses 2+ and intact throughout ABD: Abdomen is soft, nontender, nondistended. EXT: Normal range of motion, no obvious deformity SKIN: No rashes or lesions observed on exposed skin. NEURO: Alert and oriented x 4. Limitations: no limitations Course Vital Signs 01/19/22 05:12 Temperature 98.6 F Pulse Rate 59 L Respiratory 18 Rate Blood Pressure 143/88 O2 Sat by Pulse 100 Oximetry Medical Decision Making - Medical Decision Making Based on the patient's presentation and physical exam, she presents emergency Department complaining of acute on chronic nausea and vomiting. Patient will be symptomatically treated with IV fluids, and antiemetic medications. We will obtain basic abdominal laboratory studies at this time. This week, patient is already received an abdomen and pelvis CT which was unremarkable except for a large hiatal hernia which the patient is due to have repaired. KUB x-ray was obtained yesterday which showed a nonacute abdomen. I do not believe that further imaging is required at this time as patient is presenting with identical complaints as to these 2 episodes. Vital signs are within acceptable limits. Patient's laboratory studies are remarkable for a hypokalemia of 3.0 which is replenished. She does have a slight elevated anion gap of 18 which is been chronic for the patient this week. Remainder of labs are unremarkable. Patient is not . Urinalysis is unremarkable. On reevaluation, patient still feeling nauseous. Has an active emesis episode at bedside. I would like to admitted to the hospital at this time as this is the third visit this week for some eye complaints and was then admitted previously. She was in agreement this plan. Will continue IV fluid hydration and antiemetics. I spoke with the admitting physician, Dr. Pinto who accepted the patient. Consult placed to Dr. Yusuf and Dr. pinto's request. - Lab Data Result diagrams: 01/19/22 05:55 01/19/22 05:55 Lab Results 01/19/22 01/19/22 01/19/22 Range/Units 05:55 05:55 05:55 WBC 7.4 (3.8-10.6) k/uL RBC 4.53 (3.80-5.40) m/uL Hgb 13.4 (11.4-16.0) gm/dL Hct 37.9 (34.0-46.0) % MCV 83.7 (80.0-100.0) fL MCH 29.5 (25.0-35.0) pg MCHC 35.3 (31.0-37.0) g/dL RDW 12.3 (11.5-15.5) % Plt Count 221 (150-450) k/uL MPV 9.0 Neutrophils % 73 % Lymphocytes % 20 % Monocytes % 4 % Eosinophils % 1 % Basophils % 1 % Neutrophils # 5.4 (1.3-7.7) k/uL Lymphocytes # 1.5 (1.0-4.8) k/uL Monocytes # 0.3 (0-1.0) k/uL Eosinophils # 0.1 (0-0.7) k/uL Basophils # 0.0 (0-0.2) k/uL Sodium 139 (137-145) mmol/L Potassium 3.0 L (3.5-5.1) mmol/L Chloride 101 (98-107) mmol/L Carbon Dioxide 20 L (22-30) mmol/L Anion Gap 18 mmol/L BUN 3 L (7-17) mg/dL Creatinine 0.51 L (0.52-1.04) mg/dL Est GFR (CKD-EPI)AfAm >90 (>60 ml/min/1.73 sqM) Est GFR (CKD-EPI)NonAf >90 (>60 ml/min/1.73 sqM) Glucose 87 (74-99) mg/dL Calcium 8.8 (8.4-10.2) mg/dL Total Bilirubin 1.0 (0.2-1.3) mg/dL AST 21 (14-36) U/L ALT 27 (4-34) U/L Alkaline Phosphatase 64 (38-126) U/L Total Protein 7.1 (6.3-8.2) g/dL Albumin 4.7 (3.5-5.0) g/dL Amylase 74 (30-110) U/L Lipase 126 (23-300) U/L HCG, Qual Not Detected Urine Color Yellow Urine Appearance Cloudy H (Clear) Urine pH 6.0 (5.0-8.0) Ur Specific [place] 1.027 (1.001-1.035) Urine Protein 1+ H (Negative) Urine Glucose (UA) Negative (Negative) Urine Ketones 4+ H (Negative) Urine Blood Negative (Negative) Urine Nitrite Negative (Negative) Urine Bilirubin Negative (Negative) Urine Urobilinogen 3.0 (<2.0) mg/dL Ur Leukocyte Esterase Negative (Negative) Urine RBC 2 (0-5) /hpf Urine WBC 2 (0-5) /hpf Ur Squamous Epith Cells 9 H (0-4) /hpf Urine Mucus Moderate H (None) /hpf Disposition Clinical Impression: Intractable nausea and vomiting, Dehydration, Hypokalemia Disposition: ADMITTED IP TO THIS HOSP Condition: Stable Time of Disposition: 06:45
[2022-01-19 06:18] LABS: Appearance,Urine Cloudy (Clear); Bilirubin,Urine Negative (Negative); Blood,Urine Negative (Negative); Color,Urine Yellow; Glucose,Urine (UA) Negative (Negative); Ketones,Urine 4+ (Negative); Leukocyte Esterase,Urine Negative (Negative); Mucus,Urine Moderate /hpf; Nitrite,Urine Negative (Negative); Protein,Urine 1+ (Negative); RBC,Urine 2 /hpf (0-5); Specific Gravity,Urine 1.027 (1.001-1.035); Squamous Epithelial Cell,Urine 9 /hpf (0-4); WBC,Urine 2 /hpf (0-5)
[2022-01-19 06:24] LABS: ALT 27 U/L (4-34); AST 21 U/L (14-36); African American GFR (CKD) >90 (>60 ml/min/1.73 sqM); Albumin 4.7 g/dL (3.5-5.0); Alkaline Phosphatase 64 U/L (38-126); Amylase 74 U/L (30-110); Anion Gap 18 mmol/L; Blood Urea Nitrogen 3 mg/dL (7-17); Calcium 8.8 mg/dL (8.4-10.2); Carbon Dioxide 20 mmol/L (22-30); Chloride 101 mmol/L (98-107); Glucose 87 mg/dL (74-99); HCG,Qualitative Serum Not Detected; Lipase 126 U/L (23-300); Non-African American GFR(CKD) >90 (>60 ml/min/1.73 sqM); Sodium 139 mmol/L (137-145); Total Protein 7.1 g/dL (6.3-8.2)
[2022-01-19] MEDS ORDERED: POTASSIUM CHLORIDE ER 20 MEQ TAB.ER PO STA (06:31)
[2022-01-19] MEDS ORDERED: METOCLOPRAMIDE 5 MG/ML 2 ML VIAL IVP STA (06:47)
[2022-01-19] MEDS ORDERED: NALOXONE 0.4 MG/ML 1 ML VIAL IV PRN (06:54)
[2022-01-19] MEDS ORDERED: ONDANSETRON 4 MG/2 ML VIAL IVP PRN (06:54)
[2022-01-19] MEDS: ONDANSETRON 4 MG/2 ML VIAL IVP PRN (10:51)
[2022-01-19] MEDS: HEPARIN SODIUM,PORCINE/PF 5,000 UNIT/0.5 ML SYRINGE SQ SCH ×3 (10:53→22:34)
--- NOTE | 2022-01-19 14:35 | P.GSCN ---
History of Present Illness Consult date: 01/19/22 History of present illness: CHIEF COMPLAINT: Nausea and vomiting HISTORY OF PRESENT ILLNESS: This is a 26-year-old female who presented to the hospital with complaints of nausea and vomiting for the past week. Patient has had 3 ER visits within the last week. She was discharged from the ER yesterday. She continues to have intractable nausea and vomiting. Patient had laparoscopic cholecystectomy on 12/22/2021. And her last EGD was 12/20/2021 with gastritis, esophagitis and small hiatal hernia. She does use marijuana daily. Last use of marijuana was about week ago. She had a computed tomography scan of the abdomen on 01/14/2022 that had shown moderate to large hiatal hernia. Patient was scheduled for hiatal hernia repair with Dr. ferraro on 01/28/2022. Patient patient is to having episodes of vomiting. Her emesis yesterday was bile as well as some coffee grounds. She reports abdominal pain. She denies any difficulty with swallowing or feeling full sensation. She denies any heartburn. She denies any fevers. She does report her urine has been dark. Patient seen and examined with Dr. ferraro PAST MEDICAL HISTORY: GERD, migraines, back pain PAST SURGICAL HISTORY: Cholecystectomy, hernia repair MEDICATIONS: See list. ALLERGIES: See list. SOCIAL HISTORY: No illicit drug use. Marijuana use REVIEW OF SYSTEMS: CONSTITUTIONAL: Denies fever or chills. HEENT: Denies blurred vision, vision changes, or eye pain. Denies hemoptysis CARDIOVASCULAR: Denies chest pain or pressure. RESPIRATORY: No shortness of breath. GASTROINTESTINAL: See HPI for pertinent findings HEMATOLOGIC: Denies bleeding disorders. GENITOURINARY: Denies any blood in urine or increased urinary frequency. SKIN: Denies pruitis. Denies rash. PHYSICAL EXAM: VITAL SIGNS: Reviewed GENERAL: Well-developed in no acute distress. HEENT: No sclera icterus. Extraocular movements grossly intact. Moist buccal mucosa. Head is atraumatic, normocephalic. No nasal drainage. ABDOMEN: Soft. Nondistended. nontender NEUROLOGIC: Alert and oriented. Cranial nerves II through XII grossly intact. LABORATORY DATA: WBC is 7.4 Hgb 13.4 platelets 221 Sodium 139 potassium is 3.0 creatinine 0.5 LFTs normal Lipase normal hCG not detected Urinalysis negative for infection IMAGING: Computed tomography scan of pelvis showing moderate to large hiatal hernia, cholecystectomy. No acute changes in the abdomen or pelvis. KUB x-ray nonacute abdomen ASSESSMENT: 1. Intractable nausea and vomiting 2. Hyperemesis 3. Chronic nausea 4. Large hiatal hernia 5. Hypokalemia 6. Dehydration PLAN: -Patient scheduled for EGD tomorrow with Dr. ferraro -Nothing by mouth after midnight -Upper GI with small bowel follow-through ordered -Continue clear liquid diet -Continue antiemetics -Continue IV fluids -Continue supportive care Thank you for this consultation Physician Gang Rider note has been reviewed by physician. Signing provider agrees with the documented findings, assessment, and plan of care. Past Medical History Past Medical History: GERD/Reflux Additional Past Medical History / Comment(s): MIGRAINES, BACK PAIN History of Any Multi-Drug Resistant Organisms: None Reported Past Surgical History: Cholecystectomy, Hernia Repair Past Anesthesia/Blood Transfusion Reactions: Motion Sickness Additional Past Anesthesia/Blood Transfusion Reaction / Comm: NO ANESTHESIA HX Past Psychological History: No Psychological Hx Reported Smoking Status: Never smoker Past Alcohol Use History: None Reported Past Drug Use History: Marijuana - Past Family History Mother Family Medical History: No Reported History Medications and Allergies Home Medications Medication Instructions Recorded Confirmed Type Ketorolac [Toradol] 10 mg PO Q6HR PRN #12 tab 01/14/22 01/19/22 Rx Metoclopramide [Reglan] 10 mg PO Q6H PRN #20 tab 01/14/22 01/19/22 Rx Ondansetron Odt [Zofran Odt] 4 mg PO Q8HR PRN #20 tab 01/14/22 01/19/22 Rx Allergies Allergy/AdvReac Type Severity Reaction Status Date / Time No Known Allergies Allergy Verified 01/19/22 08:10 Surgical - Exam Vital Signs Temp Pulse Resp BP Pulse Ox 98.6 F 59 L 18 143/88 100 01/19/22 05:12 01/19/22 05:12 01/19/22 05:12 01/19/22 05:12 01/19/22 05:12 Results - Labs 01/19/22 05:55 01/19/22 05:55 Abnormal Lab Results - Last 24 Hours (Table) 01/19/22 01/19/22 Range/Units 05:55 05:55 Potassium 3.0 L (3.5-5.1) mmol/L Carbon Dioxide 20 L (22-30) mmol/L BUN 3 L (7-17) mg/dL Creatinine 0.51 L (0.52-1.04) mg/dL Urine Appearance Cloudy H (Clear) Urine Protein 1+ H (Negative) Urine Ketones 4+ H (Negative) Ur Squamous Epith Cells 9 H (0-4) /hpf Urine Mucus Moderate H (None) /hpf Diabetes panel 01/19/22 Range/Units 05:55 Sodium 139 (137-145) mmol/L Potassium 3.0 L (3.5-5.1) mmol/L Chloride 101 (98-107) mmol/L Carbon Dioxide 20 L (22-30) mmol/L BUN 3 L (7-17) mg/dL Creatinine 0.51 L (0.52-1.04) mg/dL Glucose 87 (74-99) mg/dL Calcium 8.8 (8.4-10.2) mg/dL AST 21 (14-36) U/L ALT 27 (4-34) U/L Alkaline Phosphatase 64 (38-126) U/L Total Protein 7.1 (6.3-8.2) g/dL Albumin 4.7 (3.5-5.0) g/dL Calcium panel 01/19/22 Range/Units 05:55 Calcium 8.8 (8.4-10.2) mg/dL Albumin 4.7 (3.5-5.0) g/dL Pituitary panel 01/19/22 Range/Units 05:55 Sodium 139 (137-145) mmol/L Potassium 3.0 L (3.5-5.1) mmol/L Chloride 101 (98-107) mmol/L Carbon Dioxide 20 L (22-30) mmol/L BUN 3 L (7-17) mg/dL Creatinine 0.51 L (0.52-1.04) mg/dL Glucose 87 (74-99) mg/dL Calcium 8.8 (8.4-10.2) mg/dL Adrenal panel 01/19/22 Range/Units 05:55 Sodium 139 (137-145) mmol/L Potassium 3.0 L (3.5-5.1) mmol/L Chloride 101 (98-107) mmol/L Carbon Dioxide 20 L (22-30) mmol/L BUN 3 L (7-17) mg/dL Creatinine 0.51 L (0.52-1.04) mg/dL Glucose 87 (74-99) mg/dL Calcium 8.8 (8.4-10.2) mg/dL Total Bilirubin 1.0 (0.2-1.3) mg/dL AST 21 (14-36) U/L ALT 27 (4-34) U/L Alkaline Phosphatase 64 (38-126) U/L Total Protein 7.1 (6.3-8.2) g/dL Albumin 4.7 (3.5-5.0) g/dL
[2022-01-19] MEDS: METOCLOPRAMIDE 5 MG/ML 2 ML VIAL IVP SCH ×2 (17:19→22:34)
[2022-01-19] MEDS ORDERED: ALPRAZolam 0.25 MG TAB PO PRN (19:37)
[2022-01-19] MEDS ORDERED: FAMOTIDINE 20 MG TAB PO SCH (23:45)
[2022-01-20] MEDS: ONDANSETRON 4 MG/2 ML VIAL IVP PRN ×3 (04:36→16:27)
[2022-01-20] MEDS: METOCLOPRAMIDE 5 MG/ML 2 ML VIAL IVP SCH ×3 (05:26→18:45)
[2022-01-20 08:44] VITALS: BP 124/71; PULSE 72; TEMP 99
[2022-01-20] MEDS ORDERED: FAMOTIDINE 20 MG TAB PO SCH (09:00)
[2022-01-20 09:10] LABS: Basophils # (A) 0.03 X 10*3/uL (0.00-0.10); Basophils % (A) 0.5 %; Eosinophils # (A) 0.06 X 10*3/uL (0.04-0.35); HCT 37.6 % (37.2-46.3); Immature Grans, Automated 0.2 %; Lymphocytes # (A) 1.66 X 10*3/uL (0.90-5.00); Lymphocytes % (A) 27.3 %; MCH 29.4 pg (27.0-32.0); MCHC 34.6 g/dL (32.0-37.0); MCV 85.1 fL (80.0-97.0); Mean Platelet Volume 12.1 fL (9.5-12.2); Monocytes # (A) 0.47 X 10*3/uL (0.20-1.00); Monocytes % (A) 7.7 %; NRBC Per 100 WBC 0 /100 WBCS (0.0-0.0); Neutrophils # (A) 3.86 X 10*3/uL (1.80-7.70); Neutrophils % (A) 63.3 %; Platelet Count 246 X 10*3/uL (140-440); RBC 4.42 X 10*6/uL (4.10-5.20); RDW 11.8 % (11.5-14.5); WBC 6.09 X 10*3/uL (4.50-10.00)
[2022-01-20 09:16] LABS: African American GFR (CKD) 153.7 (60.0-200.0); Albumin 4.4 g/dL (3.8-4.9); Albumin/Globulin Ratio 2.1 (1.60-3.17); Anion Gap 16.8 mmol/L (10.00-18.00); BUN/Creat Ratio 5.4 Ratio (12.00-20.00); Blood Urea Nitrogen 2.7 mg/dL (9.0-27.0); Calcium 8.7 mg/dL (8.7-10.3); Carbon Dioxide 19.2 mmol/L (20.0-27.5); Globulin 2.1 g/dL (1.6-3.3); Non-African American GFR(CKD) 132.6 (60.0-200.0); Potassium 3.2 mmol/L (3.5-5.5); Total Bilirubin 0.6 mg/dL (0.30-1.20); Total Protein 6.5 g/dL (6.2-8.2)
--- NOTE | 2022-01-20 09:34 | HP ---
HISTORY AND PHYSICAL HISTORY OF PRESENT ILLNESS: A 26-year-old white female came to the hospital with nausea and vomiting in the past week. She was discharged from the ER yesterday. She has nausea and vomiting since she stopped her Pepcid 2-3 weeks ago. She . She will also get her hiatal hernia fixed in a few weeks after she had stopped her vomiting. She takes raglan as an outpatient. She denies any marijuana, but she stopped her proton pump inhibitors 2-3 weeks ago. She was vomiting some bile as well as coffee-grounds. PAST MEDICAL HISTORY: GERD, migraines, back pain. PAST SURGICAL HISTORY: Cholecystectomy, hernia repair. SOCIAL HISTORY: No drugs. She denies any marijuana for over a year. REVIEW OF SYSTEMS: A 14-point review of systems otherwise negative except for the vomiting. PHYSICAL EXAMINATION: VITAL SIGNS: Stable, afebrile. CARDIOVASCULAR: S1, S2. LUNGS: Clear. GI: Soft. PSYCH: Fair mood and affect. She has mild tenderness to palpation in epigastric. No guarding, no rebound. Abdomen is soft. NEUROLOGIC: Alert and oriented x3. LABORATORY DATA: White count 7.4, hemoglobin 13.4, sodium 139, potassium 3.0. LFTs normal. Lipase normal. She is not . Urinalysis is negative. CAT scan shows moderate to large hiatal hernia, cholecystectomy, retractable nausea, vomiting, hyperemesis, chronic nausea, large hiatal hernia, hypokalemia, dehydration. EGD tomorrow, nothing by mouth after midnight. Upper GI small bowel follow-through ordered. Clear liquid diet, antiemetics. Start proton pump inhibitors at this point. PROGNOSIS: Guarded. MMODL / IJN: [id number] /
[2022-01-20] MEDS: HEPARIN SODIUM,PORCINE/PF 5,000 UNIT/0.5 ML SYRINGE SQ SCH ×2 (10:03→16:27)
[2022-01-20 10:53] VITALS: RESP 16
[2022-01-20] MEDS ORDERED: PROPOFOL 10 MG/ML 20 ML VIAL IV ONE (11:04)
[2022-01-20] MEDS ORDERED: GLYCOPYRROLATE 0.2 MG/ML 2 ML VIAL ONE (11:04)
[2022-01-20] MEDS ORDERED: LIDOCAINE 2% INJ 20 MG/ML (2 ML VIAL) ONE (11:04)
[2022-01-20] MEDS ORDERED: MIDAZOLAM 2 MG/2 ML VIAL ONE (11:04)
[2022-01-20] MEDS ORDERED: SODIUM CHLORIDE 0.9% 500 ML 500 ML IV ONE (11:26)
--- NOTE | 2022-01-20 11:27 | P.OP ---
Date of Procedure: 01/20/22 Preoperative Diagnosis: Nausea vomiting Postoperative Diagnosis: Gastritis Moderate size hiatal hernia Esophagitis Procedure(s) Performed: EGD Anesthesia: MAC Surgeon: Darrick Yusuf Pathology: other (Antrum, esophagus) Condition: stable Disposition: PACU Description of Procedure: Patient's placed on the endoscopy table in the lateral position. She received IV sedation. The gastroscope was placed oropharynx passed in the esophagus and into the stomach. Scope was placed through the pylorus. The first and second portion of duodenum appeared normal. Scope was then brought back the antrum this appeared moderately inflamed. Biopsies performed. The scope was then retroflexed. Remainder the stomach appeared normal. Patient had a moderate size hiatal hernia. The GE junction was at 38 cm. The distal esophagus showed evidence of esophagitis. A biopsies performed. The proximal esophagus appeared normal. Scope withdrawn for patient.
== END 2022-01-20 23:09 | disposition home or self-care (01) ==
LOC: EC 05:05 → 6NMEDSUR 06:54
PROVIDERS: ADMIT Family Medicine; ATTEND Family Medicine
DX: K29.50 Unspecified chronic gastritis without bleeding (principal); K22.10 Ulcer of esophagus without bleeding; E86.0 Dehydration; E87.6 Hypokalemia; K21.00 Gastro-esophageal reflux disease with esophagitis, without bleeding; K44.9 Diaphragmatic hernia without obstruction or gangrene; G43.909 Migraine, unspecified, not intractable, without status migrainosus; M54.9 Dorsalgia, unspecified; Z90.49 Acquired absence of other specified parts of digestive tract; Z98.890 Other specified postprocedural states
CPT/HCPCS: 96376 ×2; 96372; 96361; 96374; 96375; 99285; 36415; 88305; 80053 ×2; 82150; 83690; 85025 ×2; 81001; 88312; 84703; 43239; G0378 ×2; J2250; J1200; J1630; J2765 ×2; J2405 ×2; J2704; J1644 ×2; J2001

== ENCOUNTER 2022-08-01 13:29 | Emergency (ER) | payer OTHER ==
[2022-08-01 13:37] VITALS: RESP 16; TEMP 97.9
[2022-08-01] MEDS ORDERED: SODIUM CHLORIDE 0.9% 1,000 ML IV STA (15:05)
[2022-08-01] MEDS ORDERED: HALOPERIDOL LACTATE 5 MG/ML 1 ML VIAL IVP ONE (15:06)
[2022-08-01] MEDS ORDERED: MORPHINE SULFATE 2 MG/ML SYRINGE IVP STA (15:07)
[2022-08-01] MEDS ORDERED: FAMOTIDINE 20 MG/2 ML VIAL IV STA (15:08)
--- NOTE | 2022-08-01 15:34 | ED ---
Nausea/Vomiting/Diarrhea HPI - General Chief complaint: Nausea/Vomiting/Diarrhea Stated complaint: Vomiting,Dizziness Time Seen by Provider: 08/01/22 14:59 Source: patient, RN notes reviewed Mode of arrival: ambulatory Limitations: no limitations - History of Present Illness Initial comments: This is a 27-year-old female who presents to the emergency department for nausea and vomiting. States that this started earlier this morning. She has been here several times in the past for intractable nausea and vomiting. This has occasionally been attributed to cannabinoid hyperemesis syndrome. She does continue to smoke marijuana. She has somewhat generalized diffuse abdominal pain. Denies any changes in bowel/bladder habits. States that she is throwing up every 20 minutes. Denies any blood in her vomit. Denies any fevers, chills, sore throat, cough, dyspnea, chest pain, palpitations, diarrhea, back pain, or headaches. MD complaint: nausea, vomiting Associated Abdominal Pain: Yes Location: diffuse - Related Data Previous Rx's Medication Instructions Recorded Famotidine [Pepcid] 20 mg PO BID tab 01/20/22 Metoclopramide [Reglan] 10 mg PO Q6H PRN #20 tab 08/01/22 Ondansetron Odt [Zofran ODT] 4 mg PO Q8HR PRN #20 tab 08/01/22 Allergies Allergy/AdvReac Type Severity Reaction Status Date / Time No Known Allergies Allergy Verified 08/01/22 13:37 Review of Systems ROS Statement: Those systems with pertinent positive or pertinent negative responses have been documented in the HPI. ROS Other: All systems not noted in ROS Statement are negative. Past Medical History Past Medical History: GERD/Reflux Additional Past Medical History / Comment(s): MIGRAINES, BACK PAIN History of Any Multi-Drug Resistant Organisms: None Reported Past Surgical History: Cholecystectomy, Hernia Repair Past Anesthesia/Blood Transfusion Reactions: Motion Sickness Additional Past Anesthesia/Blood Transfusion Reaction / Comment(s): NO ANES THESIA HX Past Psychological History: No Psychological Hx Reported Smoking Status: Never smoker Past Alcohol Use History: None Reported Past Drug Use History: Marijuana - Past Family History Mother Family Medical History: No Reported History General Exam Limitations: no limitations General appearance: alert, in no apparent distress Head exam: Present: atraumatic, normocephalic, normal inspection Respiratory exam: Present: normal lung sounds bilaterally. Absent: respiratory distress, wheezes, rales, rhonchi, stridor Cardiovascular Exam: Present: regular rate, normal rhythm, normal heart sounds. Absent: systolic murmur, diastolic murmur, rubs, gallop, clicks GI/Abdominal exam: Present: soft, normal bowel sounds. Absent: distended, tenderness, guarding, rebound, rigid Neurological exam: Present: alert, oriented X3, CN II-XII intact Psychiatric exam: Present: normal affect, normal mood Skin exam: Present: warm, dry, intact, normal color. Absent: rash Course Vital Signs 08/01/22 08/01/22 08/01/22 13:35 14:55 18:46 Temperature 97.9 F Pulse Rate 53 L 49 L 71 Respiratory 16 16 16 Rate Blood Pressure 138/84 123/85 112/65 O2 Sat by Pulse 100 100 100 Oximetry 08/01/22 19:47 Temperature Pulse Rate 72 Respiratory 16 Rate Blood Pressure 112/65 O2 Sat by Pulse 98 Oximetry Medical Decision Making - Medical Decision Making This is a 27-year-old female who presents to the emergency department for nausea and vomiting. Was pt. sent in by a medical professional or institution? @ -No Did you speak to anyone other than the patient for history? @ -No Did you review nursing and triage notes? @ -Yes, and I agree, it is accurate with regards to the patient's symptoms. Were old charts reviewed? @ -No Differential Diagnosis? @ -Differential Nausea and Vomiting: Gastroenteritis, cholecystitis, appendicitis, pancreatitis, migraine, benign positional vertigo, food borne illness, pyelonephritis, irritable bowel syndrome, influenza, Covid, GERD, incarcerated hernia, intestinal obstruction, this is not meant to be an all-inclusive list. What testing was considered but not performed? (CT, X-rays, U/S, labs)? Why? @ -None What meds were considered but not given? Why? @ -None Did you discuss the management of the patient with other professionals? @ -No Did you reconcile home meds? @ -No Was smoking cessation discussed for >3mins.? @ -No Was critical care preformed (if so, how long)? @ -No Were there social determinants of health that impacted care today? How? (Homelessness, low income, unemployed, alcoholism, drug addiction, transportation, low edu. Level, literacy, decrease access to med. care, shelter, rehab)? @ -No Was there de-escalation of care discussed even if they declined? (Discuss DNR or withdrawal of care, Hospice)? @ -No What co-morbidities impacted this encounter? (DM, HTN, Smoking, COPD, CAD, Cancer, CVA, Hep., AIDS, mental health diagnosis, sleep apnea, morbid obesity)? @ -GERD Was patient admitted / discharged? @ -Discharged. Lab work obtained revealing mild leukocytosis and it was otherwise nonactionable. She was initially given IV fluids, Pepcid, and Haldol, which effectively manage her symptoms other than some mild residual nausea. Haldol was used due to suspicion for CHS. In the past, she has responded very well to Haldol, whereas Zofran and Reglan were less effective. She was however given a dose of Zofran here for the residual nausea, which was effective. Patient overall felt substantially improved and stable for discharge home. Prescriptions for both Reglan and Zofran provided. Advised that she start with the Zofran, and if that is not effective, she can alternate with the medications as needed. Otherwise advised to slowly advance her diet as tolerated and remain well-hydrated. Recommended hot showers and reducing marijuana intake as well. Undiagnosed new problem with uncertain prognosis? @ -None Drug Therapy requiring intensive monitoring for toxicity (Heparin, Nitro, Insulin, Cardizem)? @ -None Were any procedures done? @ -None Diagnosis/symptom? @ -Nausea and vomiting, CHS Acute, or Chronic, or Acute on Chronic? @ -Acute Uncomplicated (without systemic symptoms) or Complicated (systemic symptoms)? @ -Uncomplicated Side effects of treatment? @ -None Exacerbation, Progression, or Severe Exacerbation] @ -Not applicable Poses a threat to life or bodily function? @ -No Return precautions reviewed in depth, the patient is instructed to return to the emergency department with any new, worsening, or concerning symptoms. Patient verbalized understanding. This case was discussed in detail with the attending ED physician, Dr. Valera. Presentation, findings, and treatment plan discussed in detail as well. - Lab Data Result diagrams: 08/01/22 15:28 08/01/22 15:28 Lab Results 08/01/22 08/01/22 Range/Units 15:28 15:28 WBC 12.8 H (3.8-10.6) k/uL RBC 5.04 (3.80-5.40) m/uL Hgb 14.5 (11.4-16.0) gm/dL Hct 43.3 (34.0-46.0) % MCV 86.0 (80.0-100.0) fL MCH 28.8 (25.0-35.0) pg MCHC 33.5 (31.0-37.0) g/dL RDW 11.9 (11.5-15.5) % Plt Count 245 (150-450) k/uL MPV 9.1 Neutrophils % 91 % Lymphocytes % 6 % Monocytes % 2 % Eosinophils % 0 % Basophils % 0 % Neutrophils # 11.7 H (1.3-7.7) k/uL Lymphocytes # 0.8 L (1.0-4.8) k/uL Monocytes # 0.3 (0-1.0) k/uL Eosinophils # 0.0 (0-0.7) k/uL Basophils # 0.0 (0-0.2) k/uL Sodium 139 (137-145) mmol/L Potassium 4.4 (3.5-5.1) mmol/L Chloride 103 (98-107) mmol/L Carbon Dioxide 19 L (22-30) mmol/L Anion Gap 17 mmol/L BUN 14 (7-17) mg/dL Creatinine 0.54 (0.52-1.04) mg/dL Est GFR (CKD-EPI)AfAm >90 (>60 ml/min/1.73 sqM) Est GFR (CKD-EPI)NonAf >90 (>60 ml/min/1.73 sqM) Glucose 138 H (74-99) mg/dL Calcium 9.3 (8.4-10.2) mg/dL Total Bilirubin 0.6 (0.2-1.3) mg/dL AST 26 (14-36) U/L ALT 23 (4-34) U/L Alkaline Phosphatase 63 (38-126) U/L Total Protein 8.0 (6.3-8.2) g/dL Albumin 4.9 (3.5-5.0) g/dL Amylase 104 (30-110) U/L Lipase 146 (23-300) U/L Disposition Clinical Impression: Nausea and vomiting Disposition: HOME SELF-CARE Instructions (If sedation given, give patient instructions): Acute Nausea and Vomiting (ED) Additional Instructions: Return to the emergency department with any new, worsening, or concerning symptoms. Try taking the Zofran for the nausea and vomiting. If that is not effective, you can take the Reglan and alternate with the two medications. Slowly advance your diet as tolerated and remain well-hydrated. Follow up with your primary care provider in 1-2 days. Prescriptions: Metoclopramide [Reglan] 10 mg PO Q6H PRN #20 tab PRN Reason: Nausea And Vomiting Ondansetron Odt [Zofran ODT] 4 mg PO Q8HR PRN #20 tab PRN Reason: Nausea And Vomiting Is patient prescribed a controlled substance at d/c from ED?: No Referrals: None,Stated [Primary Care Provider] - 1-2 days
[2022-08-01 15:55] LABS: Basophils % (A) 0 %; Eosinophils % (A) 0 %; HCT 43.3 % (34.0-46.0); HGB 14.5 gm/dL (11.4-16.0); Lymphocytes # (A) 0.8 k/uL (1.0-4.8); Lymphocytes % (A) 6 %; MCH 28.8 pg (25.0-35.0); MCHC 33.5 g/dL (31.0-37.0); Mean Platelet Volume 9.1; Monocytes # (A) 0.3 k/uL (0-1.0); Monocytes % (A) 2 %; Neutrophils # (A) 11.7 k/uL (1.3-7.7); Neutrophils % (A) 91 %; Platelet Count 245 k/uL (150-450); RBC 5.04 m/uL (3.80-5.40); RDW 11.9 % (11.5-15.5); WBC 12.8 k/uL (3.8-10.6)
[2022-08-01 16:05] LABS: ALT 23 U/L (4-34); AST 26 U/L (14-36); African American GFR (CKD) >90 (>60 ml/min/1.73 sqM); Albumin 4.9 g/dL (3.5-5.0); Alkaline Phosphatase 63 U/L (38-126); Amylase 104 U/L (30-110); Anion Gap 17 mmol/L; Blood Urea Nitrogen 14 mg/dL (7-17); Calcium 9.3 mg/dL (8.4-10.2); Carbon Dioxide 19 mmol/L (22-30); Chloride 103 mmol/L (98-107); Glucose 138 mg/dL (74-99); Lipase 146 U/L (23-300); Non-African American GFR(CKD) >90 (>60 ml/min/1.73 sqM); Potassium 4.4 mmol/L (3.5-5.1); Sodium 139 mmol/L (137-145); Total Bilirubin 0.6 mg/dL (0.2-1.3)
[2022-08-01] MEDS ORDERED: ONDANSETRON 4 MG/2 ML VIAL IVP STA (17:30)
[2022-08-01 18:48] VITALS: BP 112/65
[2022-08-01] MEDS ORDERED: ONDANSETRON 4 MG ODT STARTER PACK 2 TAB BTL PO STA (19:30)
[2022-08-01 19:48] VITALS: PULSE 72
== END 2022-08-01 19:49 | disposition home or self-care (01) ==
LOC: EC 13:29
DX: R11.2 Nausea with vomiting, unspecified (principal); F12.90 Cannabis use, unspecified, uncomplicated
CPT/HCPCS: 80053; 82150; 83690; 85025; 99284; 96374; 96375 ×3; 96361; J1630; J2405; J2270; 36415

== ENCOUNTER 2022-09-01 09:50 | Emergency (ER) | payer OTHER ==
[2022-09-01] MEDS ORDERED: SODIUM CHLORIDE 0.9% 1,000 ML IV STA (10:34)
[2022-09-01] MEDS ORDERED: PANTOPRAZOLE 40 MG/10 ML VIAL IVP STA (11:33)
[2022-09-01 11:34] LABS: Basophils % (A) 0 %; Eosinophils # (A) 0.1 k/uL (0-0.7); Eosinophils % (A) 1 %; HCT 37.4 % (34.0-46.0); HGB 13.1 gm/dL (11.4-16.0); Lymphocytes # (A) 0.9 k/uL (1.0-4.8); Lymphocytes % (A) 13 %; MCH 29.9 pg (25.0-35.0); MCHC 34.9 g/dL (31.0-37.0); MCV 85.5 fL (80.0-100.0); Mean Platelet Volume 8.4; Monocytes # (A) 0.4 k/uL (0-1.0); Monocytes % (A) 6 %; Neutrophils # (A) 5.6 k/uL (1.3-7.7); Neutrophils % (A) 80 %; Platelet Count 180 k/uL (150-450); RBC 4.37 m/uL (3.80-5.40); WBC 7.1 k/uL (3.8-10.6)
[2022-09-01 11:35] LABS: Appearance,Urine Cloudy (Clear); Bacteria,Urine Occasional /hpf; Bilirubin,Urine Negative (Negative); Blood,Urine Negative (Negative); Color,Urine Yellow; Glucose,Urine (UA) Negative (Negative); Ketones,Urine 4+ (Negative); Leukocyte Esterase,Urine Negative (Negative); Mucus,Urine Many /hpf; Nitrite,Urine Negative (Negative); Protein,Urine 1+ (Negative); RBC,Urine 4 /hpf (0-5); Specific Gravity,Urine 1.041 (1.001-1.035); Squamous Epithelial Cell,Urine 10 /hpf (0-4); WBC,Urine 5 /hpf (0-5)
[2022-09-01] MEDS ORDERED: droPERidol 5 MG/2 ML VIAL IVP ONE (11:35)
--- NOTE | 2022-09-01 11:44 | ED ---
General Adult HPI - General Chief complaint: Nausea/Vomiting/Diarrhea Stated complaint: numbness Time Seen by Provider: 09/01/22 10:10 Source: patient Mode of arrival: ambulatory Limitations: no limitations - History of Present Illness Initial comments: 27-year-old female presenting to the ED with a chief complaint of nausea/vomiting. She states that this started 2 days ago states she has had multiple episodes of nonbloody nonbilious emesis. Patient also notes some pain in her upper abdomen. Patient states that nausea and pain initially improved last night however upon waking up this morning and states that it has returned. Says she has only had 1 episode of nonbloody/nonbilious emesis today. Patient admits to chronic marijuana use. Patient states she is a daily smoker and states last time she smoked was 4 days ago. Changes in bowel movements. No other complaints. - Related Data Previous Rx's Medication Instructions Recorded Famotidine [Pepcid] 20 mg PO BID tab 01/20/22 Potassium Chloride [K-Tab ER] 20 meq PO ONETIME #1 tab 09/01/22 Allergies Allergy/AdvReac Type Severity Reaction Status Date / Time No Known Allergies Allergy Verified 09/01/22 12:03 Review of Systems ROS Statement: Those systems with pertinent positive or pertinent negative responses have been documented in the HPI. ROS Other: All systems not noted in ROS Statement are negative. Past Medical History Past Medical History: GERD/Reflux Additional Past Medical History / Comment(s): MIGRAINES, BACK PAIN History of Any Multi-Drug Resistant Organisms: None Reported Past Surgical History: Cholecystectomy, Hernia Repair Past Anesthesia/Blood Transfusion Reactions: Motion Sickness Additional Past Anesthesia/Blood Transfusion Reaction / Comment(s): NO ANESTHESIA HX Past Psychological History: No Psychological Hx Reported Smoking Status: Never smoker Past Alcohol Use History: None Reported Past Drug Use History: Marijuana - Past Family History Mother Family Medical History: No Reported History General Exam Limitations: no limitations General appearance: alert, anxious Head exam: Present: atraumatic, normocephalic Eye exam: Present: normal appearance ENT exam: Present: normal exam Respiratory exam: Present: normal lung sounds bilaterally Cardiovascular Exam: Present: regular rate, normal rhythm GI/Abdominal exam: Present: soft, tenderness (Diffusely tender, worse in RUQ) Neurological exam: Present: oriented X3 Skin exam: Present: warm, dry Course Vital Signs 09/01/22 09/01/22 09/01/22 10:02 10:14 12:34 Temperature 98.4 F 99.1 F Pulse Rate 108 H 76 Respiratory 18 28 H 18 Rate Blood Pressure 155/79 99/61 O2 Sat by Pulse 100 100 100 Oximetry - Consultations Consultation #1: Patient reevaluated. Patient's symptoms are much improved. States that she is no longer experiencing abdominal pain. She will be given a by mouth challenge. If she is able to tolerate, will be discharged. Medical Decision Making - Medical Decision Making Was pt. sent in by a medical professional or institution (, PA, INSTALLATION SUPERVISOR, urgent care, hospital, or residential...) When possible be specific @ -No Did you speak to anyone other than the patient for history (EMS, parent, family, police, friend...)? What history was obtained from this source @ -No Did you review nursing and triage notes (agree or disagree)? Why? @ -I reviewed and agree with nursing and triage notes Were old charts reviewed (outside hosp., previous admission, EMS record, old EKG, old radiological studies, urgent care reports/EKG's, residential records)? Report findings @ -Old charts reviewed showing history of similar history of chronic marijuana use. Differential Diagnosis (chest pain, altered mental status, abdominal pain women, abdominal pain men, vaginal bleeding, weakness, fever, dyspnea, syncope, he adache, dizziness, GI bleed, back pain, seizure, CVA, palpatations, mental health, musculoskeletal)? @ -Differential Abdominal Pain Women: Appendicitis, Cholecystitis, diverticulosis, ischemic bowel, pancreatitis, hepatitis, UTI, gastroenteritis, AAA, incarcerated hernia, bowel obstruction, constipation, inflammatory bowel, hepatitis, peptic ulcer disease, splenic infarction, perforated viscus, vulvitis, ovarian torsion, PID, kidney stone, placenta abruption, this is not meant to be an all-inclusive list EKG interpreted by me (3pts min.). @ -As above X-rays interpreted by me (1pt min.). @ -None done CT interpreted by me (1pt min.). @ -None done U/S interpreted by me (1pt. min.). @ -None done What testing was considered but not performed or refused? (CT, X-rays, U/S, labs)? Why? @ -None What meds were considered but not given or refused? Why? @ -None Did you discuss the management of the patient with other professionals (professionals i.e. , PA, INSTALLATION SUPERVISOR, lab, RT, psych nurse, mental health social worker, data communications engineer, teacher, corporate responsibility officer, showcase trimmer)? Give summary @ -No Was smoking cessation discussed for >3mins.? @ -Yes Was critical care preformed (if so, how long)? @ -No Were there social determinants of health that impacted care today? How? (Homelessness, low income, unemployed, alcoholism, drug addiction, trans portation, low edu. Level, literacy, decrease access to med. care, care home, rehab)? @ -No Was there de-escalation of care discussed even if they declined (Discuss DNR or withdrawal of care, Hospice)? DNR status @ -No What co-morbidities impacted this encounter? (DM, HTN, Smoking, COPD, CAD, Cancer, CVA, ARF, Chemo, Hep., AIDS, mental health diagnosis, sleep apnea, morbid obesity)? @ -None Was patient admitted / discharged? Hospital course, mention meds given and route, prescriptions, significant lab abnormalities, going to OR and other pertinent info. @ -Discharged. Provided IV Protonix, IV droperidol, and IV saline improvement of symptoms. Able to tolerate by mouth intake at discharge. Labs given for potassium of 3.1. Repleted with K-Lyte. Provided prescription for potassium chloride at home. Undiagnosed new problem with uncertain prognosis? @ -No Drug Therapy requiring intensive monitoring for toxicity (Heparin, Nitro, Insulin, Cardizem)? @ -No Were any procedures done? @ -No Diagnosis/symptom? @ -Nausea and vomiting Acute, or Chronic, or Acute on Chronic? @ -Acute on chronic Uncomplicated (without systemic symptoms) or Complicated (systemic symptoms)? @ -Complicated Side effects of treatment? @ -No Exacerbation, Progression, or Severe Exacerbation? @ -No Poses a threat to life or bodily function? How? (Chest pain, [place], [place], pneumonia, PE, COPD, DKA, ARF, appy, cholecystitis, CVA, Diverticulitis, Homicidal, Suicidal, threat to staff... and all critical care pts) @ -No - Lab Data Result diagrams: 09/01/22 11:04 06/01/23 11:04 Lab Results 09/01/22 09/01/22 09/01/22 Range/Units 11:04 11:04 11:04 WBC 7.1 (3.8-10.6) k/uL RBC 4.37 (3.80-5.40) m/uL Hgb 13.1 (11.4-16.0) gm/dL Hct 37.4 (34.0-46.0) % MCV 85.5 (80.0-100.0) fL MCH 29.9 (25.0-35.0) pg MCHC 34.9 (31.0-37.0) g/dL RDW 12.0 (11.5-15.5) % Plt Count 180 (150-450) k/uL MPV 8.4 Neutrophils % 80 % Lymphocytes % 13 % Monocytes % 6 % Eosinophils % 1 % Basophils % 0 % Neutrophils # 5.6 (1.3-7.7) k/uL Lymphocytes # 0.9 L (1.0-4.8) k/uL Monocytes # 0.4 (0-1.0) k/uL Eosinophils # 0.1 (0-0.7) k/uL Basophils # 0.0 (0-0.2) k/uL Sodium 137 (137-145) mmol/L Potassium 3.1 L (3.5-5.1) mmol/L Chloride 105 (98-107) mmol/L Carbon Dioxide 18 L (22-30) mmol/L Anion Gap 14 mmol/L BUN 12 (7-17) mg/dL Creatinine 0.58 (0.52-1.04) mg/dL Est GFR (CKD-EPI)AfAm >90 (>60 ml/min/1.73 sqM) Est GFR (CKD-EPI)NonAf >90 (>60 ml/min/1.73 sqM) Glucose 87 (74-99) mg/dL Calcium 8.7 (8.4-10.2) mg/dL Total Bilirubin 0.9 (0.2-1.3) mg/dL AST 21 (14-36) U/L ALT 20 (4-34) U/L Alkaline Phosphatase 61 (38-126) U/L Total Protein 6.9 (6.3-8.2) g/dL Albumin 4.3 (3.5-5.0) g/dL Amylase 58 (30-110) U/L Lipase 69 (23-300) U/L Urine Color Yellow Urine Appearance Cloudy H (Clear) Urine pH 6.0 (5.0-8.0) Ur Specific [place] 1.041 H (1.001-1.035) Urine Protein 1+ H (Negative) Urine Glucose (UA) Negative (Negative) Urine Ketones 4+ H (Negative) Urine Blood Negative (Negative) Urine Nitrite Negative (Negative) Urine Bilirubin Negative (Negative) Urine Urobilinogen 4.0 (<2.0) mg/dL Ur Leukocyte Esterase Negative (Negative) Urine RBC 4 (0-5) /hpf Urine WBC 5 (0-5) /hpf Ur Squamous Epith Cells 10 H (0-4) /hpf Urine Bacteria Occasional H (None) /hpf Urine Mucus Many H (None) /hpf Urine HCG, Qual (Not Detectd) Urine Opiates Screen (NotDetected) Ur Oxycodone Screen (NotDetected) Urine Methadone Screen (NotDetected) Ur Propoxyphene Screen (NotDetected) Ur Barbiturates Screen (NotDetected) U Tricyclic Antidepress (NotDetected) Ur Phencyclidine Scrn (NotDetected) Ur Amphetamines Screen (NotDetected) U Methamphetamines Scrn (NotDetected) U Benzodiazepines Scrn (NotDetected) Urine Cocaine Screen (NotDetected) U Marijuana (THC) Screen (NotDetected) 09/01/22 09/01/22 Range/Units 11:04 11:04 WBC (3.8-10.6) k/uL RBC (3.80-5.40) m/uL Hgb (11.4-16.0) gm/dL Hct (34.0-46.0) % MCV (80.0-100.0) fL MCH (25.0-35.0) pg MCHC (31.0-37.0) g/dL RDW (11.5-15.5) % Plt Count (150-450) k/uL MPV Neutrophils % % Lymphocytes % % Monocytes % % Eosinophils % % Basophils % % Neutrophils # (1.3-7.7) k/uL Lymphocytes # (1.0-4.8) k/uL Monocytes # (0-1.0) k/uL Eosinophils # (0-0.7) k/uL Basophils # (0-0.2) k/uL Sodium (137-145) mmol/L Potassium (3.5-5.1) mmol/L Chloride (98-107) mmol/L Carbon Dioxide (22-30) mmol/L Anion Gap mmol/L BUN (7-17) mg/dL Creatinine (0.52-1.04) mg/dL Est GFR (CKD-EPI)AfAm (>60 ml/min/1.73 sqM) Est GFR (CKD-EPI)NonAf (>60 ml/min/1.73 sqM) Glucose (74-99) mg/dL Calcium (8.4-10.2) mg/dL Total Bilirubin (0.2-1.3) mg/dL AST (14-36) U/L ALT (4-34) U/L Alkaline Phosphatase (38-126) U/L Total Protein (6.3-8.2) g/dL Albumin (3.5-5.0) g/dL Amylase (30-110) U/L Lipase (23-300) U/L Urine Color Urine Appearance (Clear) Urine pH (5.0-8.0) Ur Specific [place] (1.001-1.035) Urine Protein (Negative) Urine Glucose (UA) (Negative) Urine Ketones (Negative) Urine Blood (Negative) Urine Nitrite (Negative) Urine Bilirubin (Negative) Urine Urobilinogen (<2.0) mg/dL Ur Leukocyte Esterase (Negative) Urine RBC (0-5) /hpf Urine WBC (0-5) /hpf Ur Squamous Epith Cells (0-4) /hpf Urine Bacteria (None) /hpf Urine Mucus (None) /hpf Urine HCG, Qual Not Detected (Not Detectd) Urine Opiates Screen Not Detected (NotDetected) Ur Oxycodone Screen Not Detected (NotDetected) Urine Methadone Screen Not Detected (NotDetected) Ur Propoxyphene Screen Not Detected (NotDetected) Ur Barbiturates Screen Not Detected (NotDetected) U Tricyclic Antidepress Not Detected (NotDetected) Ur Phencyclidine Scrn Not Detected (NotDetected) Ur Amphetamines Screen Not Detected (NotDetected) U Methamphetamines Scrn Not Detected (NotDetected) U Benzodiazepines Scrn Not Detected (NotDetected) Urine Cocaine Screen Not Detected (NotDetected) U Marijuana (THC) Screen Detected H (NotDetected) Disposition Clinical Impression: Nausea & vomiting Disposition: HOME SELF-CARE Additional Instructions: Please return to the Emergency Department if symptoms worsen or any other concerns. Prescriptions: Potassium Chloride [K-Tab ER] 20 meq PO ONETIME #1 tab Is patient prescribed a controlled substance at d/c from ED?: No Referrals: Terry Rivera MD [Primary Care Provider] - 1-2 days Time of Disposition: 13:24
[2022-09-01 11:59] LABS: ALT 20 U/L (4-34); AST 21 U/L (14-36); African American GFR (CKD) >90 (>60 ml/min/1.73 sqM); Albumin 4.3 g/dL (3.5-5.0); Alkaline Phosphatase 61 U/L (38-126); Amylase 58 U/L (30-110); Anion Gap 14 mmol/L; Blood Urea Nitrogen 12 mg/dL (7-17); Calcium 8.7 mg/dL (8.4-10.2); Carbon Dioxide 18 mmol/L (22-30); Chloride 105 mmol/L (98-107); Glucose 87 mg/dL (74-99); Lipase 69 U/L (23-300); Non-African American GFR(CKD) >90 (>60 ml/min/1.73 sqM); Potassium 3.1 mmol/L (3.5-5.1); Sodium 137 mmol/L (137-145); Total Bilirubin 0.9 mg/dL (0.2-1.3); Total Protein 6.9 g/dL (6.3-8.2)
[2022-09-01] MEDS ORDERED: POTASSIUM CHLORIDE ER 20 MEQ TAB.ER PO STA (12:14)
[2022-09-01 12:16] LABS: Amphetamine Screen,Urine Not Detected (NotDetected); Barbiturate Screen,Urine Not Detected (NotDetected); Benzodiazepines Screen,Urine Not Detected (NotDetected); Cocaine Screen,Urine Not Detected (NotDetected); Methadone Screen, Urine Not Detected (NotDetected); Opiate Screen,Urine Not Detected (NotDetected); Oxycodone Screen, Urine Not Detected (NotDetected); Phencyclidine Screen,Urine Not Detected (NotDetected); Tricyclic Antidepressant,Urine Not Detected (NotDetected); Urn Cannabinoid Scrn Detected (NotDetected)
[2022-09-01] MEDS ORDERED: POTASSIUM BICARBONATE/CIT AC 20 MEQ TABLET.EFF PO ONE (12:23)
[2022-09-01] MEDS ORDERED: ONDANSETRON 4 MG ODT STARTER PACK 2 TAB BTL PO STA (13:32)
[2022-09-01 13:56] VITALS: TEMP 98.4
[2022-09-01 14:55] VITALS: BP 126/78; PULSE 90; RESP 18
== END 2022-09-01 14:55 | disposition home or self-care (01) ==
LOC: EC 09:50
DX: R11.2 Nausea with vomiting, unspecified (principal); F12.90 Cannabis use, unspecified, uncomplicated
CPT/HCPCS: 36415; 80053; 82150; 83690; 85025; 81001; 81025; 80306; 99284; 96374; 96375; 96361; S0119; C9113; J1790

== ENCOUNTER 2022-09-26 11:46 | Emergency (ER) | payer OTHER ==
[2022-09-26 11:52] VITALS: TEMP 97.6
[2022-09-26] MEDS ORDERED: SODIUM CHLORIDE 0.9% 500 ML 500 ML IV STA (12:50)
[2022-09-26] MEDS ORDERED: SODIUM CHLORIDE 0.9% 1,000 ML IV STA (12:50)
[2022-09-26] MEDS ORDERED: droPERidol 5 MG/2 ML VIAL IVP ONE (12:50)
[2022-09-26] MEDS ORDERED: ONDANSETRON 4 MG/2 ML VIAL IVP STA (12:50)
--- NOTE | 2022-09-26 12:52 | ED ---
General Adult HPI - General Chief complaint: Nausea/Vomiting/Diarrhea Stated complaint: Vomiting Time Seen by Provider: 09/26/22 12:00 Source: patient, RN notes reviewed, old records reviewed Mode of arrival: ambulatory Limitations: no limitations - History of Present Illness Initial comments: This is a 27-year-old female who presents emergency Department complaining of nausea and vomiting suggestive. Patient states she's had a history of this in the past. Patient states she's had a hiatal hernia repair as well as a cholecystectomy in the past. Patient states she was at a green party yesterday did not drink much and this started then and hasn't stopped since. Patient states she initially had a 6 x 10 headache which is typical for her migraine headaches but is resolved. Patient states she had a little abdominal cramping but the abdominal cramping is currently resolved she just is extremely nauseated and can't stop vomiting. Patient denies chest pain difficulty breathing shortness of breath per patient any fever chills or cough. - Related Data Home Medications Medication Instructions Recorded Confirmed No Known Home Medications 09/26/22 09/26/22 Allergies Allergy/AdvReac Type Severity Reaction Status Date / Time No Known Allergies Allergy Verified 09/26/22 14:37 Review of Systems ROS Statement: Those systems with pertinent positive or pertinent negative responses have been documented in the HPI. ROS Other: All systems not noted in ROS Statement are negative. Past Medical History Past Medical History: GERD/Reflux Additional Past Medical History / Comment(s): MIGRAINES, BACK PAIN History of Any Multi-Drug Resistant Organisms: None Reported Past Surgical History: Cholecystectomy, Hernia Repair Past Anesthesia/Blood Transfusion Reactions: Motion Sickness Additional Past Anesthesia/Blood Transfusion Reaction / Comment(s): NO ANESTHESIA HX Past Psychological History: No Psychological Hx Reported Smoking Status: Never smoker Past Alcohol Use History: None Reported Past Drug Use History: Marijuana - Past Family History Mother Family Medical History: No Reported History General Exam - General Exam Comments Initial Comments: GENERAL: Patient is well-developed and well-nourished. Patient is nontoxic and well- hydrated and is in mild distress. ENT: Neck is soft and supple. No significant lymphadenopathy is noted. Oropharynx is clear. Moist mucous membranes. Neck has full range of motion without eliciting any pain. EYES: The sclera were anicteric and conjunctiva were pink and moist. Extraocular movements were intact and pupils were equal round and reactive to light. Eyelids were unremarkable. PULMONARY: Unlabored respirations. Good breath sounds bilaterally. No audible rales r honchi or wheezing was noted. CARDIOVASCULAR: There is a regular rate and rhythm without any murmurs gallops or rubs. ABDOMEN: Soft and nontender with normal bowel sounds. SKIN: Skin is clear with no lesions or rashes and otherwise unremarkable. NEUROLOGIC: Patient is alert and oriented x3. Cranial nerves II through XII are grossly intact. Motor and sensory are also intact. Normal speech, volume and content. Symmetrical smile. MUSCULOSKELETAL: Normal extremities with adequate strength and full range of motion. No lower extremity swelling or edema. No calf tenderness. LYMPHATICS: No significant lymphadenopathy is noted PSYCHIATRIC: Normal psychiatric evaluation. Limitations: no limitations Course Vital Signs 09/26/22 09/26/22 09/26/22 11:47 13:56 14:36 Temperature 97.6 F Pulse Rate 64 105 H 73 Respiratory 20 18 18 Rate Blood Pressure 134/74 128/74 139/81 O2 Sat by Pulse 100 95 100 Oximetry Medical Decision Making - Medical Decision Making EKG is interpreted by myself that shows a sinus bradycardia at 50 bpm MA inter riley 154 QRS is 89 QT intervals 471 QTC is 445 Was pt. sent in by a medical professional or institution (, PA, JOB SERVICE CONSULTANT, urgent care, hospital, or jail...) When possible be specific @ -No Did you speak to anyone other than the patient for history (EMS, parent, family, police, friend...)? What history was obtained from this source @ -Friend of the patient also gives some of the past medical history on this patient Did you review nursing and triage notes (agree or disagree)? Why? @ -I reviewed and agree with nursing and triage notes Were old charts reviewed (outside hosp., previous admission, EMS record, old EKG, old radiological studies, urgent care reports/EKG's, jail records)? Report findings @ -I reviewed prior charts prior lab work prior drug screen on this patient Differential Diagnosis (chest pain, altered mental status, abdominal pain women, abdominal pain men, vaginal bleeding, weakness, fever, dyspnea, syncope, headache, dizziness, GI bleed, back pain, seizure, CVA, palpatations, mental hea lth, musculoskeletal)? @ -Differential Abdominal Pain Women: Appendicitis, Cholecystitis, diverticulosis, ischemic bowel, pancreatitis, hepatitis, UTI, gastroenteritis, AAA, incarcerated hernia, bowel obstruction, constipation, inflammatory bowel, hepatitis, peptic ulcer disease, splenic infarction, perforated viscus, vulvitis, ovarian torsion, PID, kidney stone, placenta abruption, this is not meant to be an all-inclusive list EKG interpreted by me (3pts min.). @ -As above X-rays interpreted by me (1pt min.). @ -None done CT interpreted by me (1pt min.). @ -None done U/S interpreted by me (1pt. min.). @ -None done What testing was considered but not performed or refused? (CT, X-rays, U/S, labs)? Why? @ -None What meds were considered but not given or refused? Why? @ -None Did you discuss the management of the patient with other professionals (professionals i.e. , PA, JOB SERVICE CONSULTANT, lab, RT, psych nurse, social work professor, receiving weigher, teacher, desk officer, wrapper caser)? Give summary @ -No Was smoking cessation discussed for >3mins.? @ -No Was critical care preformed (if so, how long)? @ -No Were there social determinants of health that impacted care today? How? (Homelessness, low income, unemployed, alcoholism, drug addiction, transportation, low edu. Level, literacy, decrease access to med. care, group home, rehab)? @ -No Was there de-escalation of care discussed even if they declined (Discuss DNR or withdrawal of care, Hospice)? DNR status @ -No What co-morbidities impacted this encounter? (DM, HTN, Smoking, COPD, CAD, Cancer, CVA, ARF, Chemo, Hep., AIDS, mental health diagnosis, sleep apnea, morbid obesity)? @ -None Was patient admitted / discharged? Hospital course, mention meds given and route, prescriptions, significant lab abnormalities, going to OR and other pertinent info. @ patient was given Zofran and fluids initially and she continued to have a little bit of vomiting so she was then given droperidol and Reglan. I went back and after that was given and patient was no longer having any vomiting was very tired wanted to go home and go to sleep. Undiagnosed new problem with uncertain prognosis? @ -No Drug Therapy requiring intensive monitoring for toxicity (Heparin, Nitro, Insulin, Cardizem)? @ -No Were any procedures done? @ -No Diagnosis/symptom? @ -Cyclic vomiting syndrome Acute, or Chronic, or Acute on Chronic? @ -Acute Uncomplicated (without systemic symptoms) or Complicated (systemic symptoms)? @ -Complicated Side effects of treatment? @ -No Exacerbation, Progression, or Severe Exacerbation? @ -No Poses a threat to life or bodily function? How? (Chest pain, [place], [place], pneumonia, PE, COPD, DKA, ARF, appy, cholecystitis, CVA, Diverticulitis, Homicidal, Suicidal, threat to staff... and all critical care pts) @ -No - Lab Data Result diagrams: 09/26/22 12:57 09/26/22 12:57 Lab Results 09/26/22 09/26/22 Range/Units 12:57 12:57 WBC 10.3 (3.8-10.6) k/uL RBC 4.94 (3.80-5.40) m/uL Hgb 14.7 (11.4-16.0) gm/dL Hct 43.9 (34.0-46.0) % MCV 89.0 (80.0-100.0) fL MCH 29.7 (25.0-35.0) pg MCHC 33.4 (31.0-37.0) g/dL RDW 12.3 (11.5-15.5) % Plt Count 249 (150-450) k/uL MPV 9.2 Neutrophils % 89 % Lymphocytes % 8 % Monocytes % 2 % Eosinophils % 1 % Basophils % 0 % Neutrophils # 9.2 H (1.3-7.7) k/uL Lymphocytes # 0.8 L (1.0-4.8) k/uL Monocytes # 0.2 (0-1.0) k/uL Eosinophils # 0.1 (0-0.7) k/uL Basophils # 0.0 (0-0.2) k/uL Sodium 138 (137-145) mmol/L Potassium 4.3 (3.5-5.1) mmol/L Chloride 107 (98-107) mmol/L Carbon Dioxide 20 L (22-30) mmol/L Anion Gap 11 mmol/L BUN 10 (7-17) mg/dL Creatinine 0.65 (0.52-1.04) mg/dL Est GFR (CKD-EPI)AfAm >90 (>60 ml/min/1.73 sqM) Est GFR (CKD-EPI)NonAf >90 (>60 ml/min/1.73 sqM) Glucose 180 H (74-99) mg/dL Calcium 9.5 (8.4-10.2) mg/dL Total Bilirubin 0.6 (0.2-1.3) mg/dL AST 26 (14-36) U/L ALT 22 (4-34) U/L Alkaline Phosphatase 74 (38-126) U/L Total Protein 7.7 (6.3-8.2) g/dL Albumin 4.7 (3.5-5.0) g/dL Amylase 96 (30-110) U/L Lipase 137 (23-300) U/L Disposition Clinical Impression: Cyclic vomiting syndrome Disposition: HOME SELF-CARE Condition: Good Instructions (If sedation given, give patient instructions): Cyclic Vomiting Syndrome (ED) Is patient prescribed a controlled substance at d/c from ED?: No Referrals: Terry Rivera MD [Primary Care Provider] - 1-2 days Time of Disposition: 15:11
[2022-09-26 13:25] LABS: Basophils % (A) 0 %; Eosinophils # (A) 0.1 k/uL (0-0.7); Eosinophils % (A) 1 %; HCT 43.9 % (34.0-46.0); HGB 14.7 gm/dL (11.4-16.0); Lymphocytes # (A) 0.8 k/uL (1.0-4.8); Lymphocytes % (A) 8 %; MCH 29.7 pg (25.0-35.0); MCHC 33.4 g/dL (31.0-37.0); Mean Platelet Volume 9.2; Monocytes # (A) 0.2 k/uL (0-1.0); Monocytes % (A) 2 %; Neutrophils # (A) 9.2 k/uL (1.3-7.7); Neutrophils % (A) 89 %; Platelet Count 249 k/uL (150-450); RBC 4.94 m/uL (3.80-5.40); RDW 12.3 % (11.5-15.5); WBC 10.3 k/uL (3.8-10.6)
[2022-09-26 13:34] LABS: ALT 22 U/L (4-34); AST 26 U/L (14-36); African American GFR (CKD) >90 (>60 ml/min/1.73 sqM); Albumin 4.7 g/dL (3.5-5.0); Alkaline Phosphatase 74 U/L (38-126); Amylase 96 U/L (30-110); Anion Gap 11 mmol/L; Blood Urea Nitrogen 10 mg/dL (7-17); Calcium 9.5 mg/dL (8.4-10.2); Carbon Dioxide 20 mmol/L (22-30); Chloride 107 mmol/L (98-107); Glucose 180 mg/dL (74-99); Lipase 137 U/L (23-300); Non-African American GFR(CKD) >90 (>60 ml/min/1.73 sqM); Potassium 4.3 mmol/L (3.5-5.1); Sodium 138 mmol/L (137-145); Total Bilirubin 0.6 mg/dL (0.2-1.3); Total Protein 7.7 g/dL (6.3-8.2)
[2022-09-26] MEDS ORDERED: METOCLOPRAMIDE 5 MG/ML 2 ML VIAL IVP STA (14:27)
[2022-09-26 15:22] VITALS: BP 130/60; PULSE 86; RESP 16
== END 2022-09-26 15:22 | disposition home or self-care (01) ==
LOC: EC 11:46
DX: R11.15 Cyclical vomiting syndrome unrelated to migraine (principal); K21.9 Gastro-esophageal reflux disease without esophagitis; F12.90 Cannabis use, unspecified, uncomplicated
CPT/HCPCS: 36415; 93005; 80053; 82150; 83690; 85025; 99284; 96374; 96375 ×2; 96361 ×2; J2765; J2405; J1790

== ENCOUNTER 2022-10-04 20:20 | Emergency (ER) | payer OTHER ==
[2022-10-04 20:46] VITALS: BP 114/76; PULSE 79; RESP 18
[2022-10-04 21:14] LABS: Appearance,Urine Cloudy (Clear); Bilirubin,Urine Negative (Negative); Blood,Urine Large (Negative); Color,Urine Dark Yellow; Glucose,Urine (UA) Negative (Negative); Ketones,Urine Negative (Negative); Leukocyte Esterase,Urine Large (Negative); Nitrite,Urine Positive (Negative); Protein,Urine 2+ (Negative); RBC,Urine >182 /hpf (0-5); Specific Gravity,Urine 1.016 (1.001-1.035); Squamous Epithelial Cell,Urine 1 /hpf (0-4); Urobilinogen,Urine <2.0 mg/dL (<2.0); WBC,Urine >182 /hpf (0-5)
--- NOTE | 2022-10-04 21:19 | ED ---
Abdominal Pain HPI - General Chief Complaint: Abdominal Pain Stated Complaint: right side pain,vomiting Time Seen by Provider: 10/04/22 21:00 Source: patient Mode of arrival: ambulatory - History of Present Illness Initial Comments: This patient is a 27-year-old woman who presents to have evaluation of right lower quadrant abdominal pain. She states that it started yesterday in the morning. She describes it as burning sensation. She has not noted worsening or relieving factors. She states that there has been some associated dysuria and possibly some frequency. She states that the pain was becoming worse today so she decided to come here. She also started having some vomiting just before deciding to come in. She has had 3 episodes of vomiting, no hematemesis. Last bowel movement was in the morning and was normal. Patient's last period just ended a day ago and was normal MD Complaint: abdominal pain Onset/Timin -: hour(s) Location: RLQ Radiation: R flank Migration to: no migration Severity: moderate Quality: burning Consistency: constant Improves With: nothing Worsens With: nothing Associated Symptoms: nausea, vomiting, dysuria - Related Data LMP (females 10-50): this week Previous Rx's Medication Instructions Recorded Cephalexin [Keflex] 500 mg PO Q6HR #28 cap 10/04/22 Allergies Allergy/AdvReac Type Severity Reaction Status Date / Time No Known Allergies Allergy Verified 10/04/22 20:46 Review of Systems ROS Statement: Those systems with pertinent positive or pertinent negative responses have been documented in the HPI. ROS Other: All systems not noted in ROS Statement are negative. Constitutional: Denies: fever, chills Respiratory: Denies: cough, dyspnea Cardiovascular: Denies: chest pain, palpitations, edema Gastrointestinal: Reports: abdominal pain, nausea, vomiting. Denies: diarrhea, constipation, hematemesis, melena, hematochezia Genitourinary: Reports: dysuria, frequency. Denies: hematuria, discharge, abnormal menses Musculoskeletal: Denies: back pain Skin: Denies: rash Neurological: Denies: headache, weakness Past Medical History Past Medical History: GERD/Reflux Additional Past Medical History / Comment(s): MIGRAINES, BACK PAIN History of Any Multi-Drug Resistant Organisms: None Reported Past Surgical History: Cholecystectomy, Hernia Repair Past Anesthesia/Blood Transfusion Reactions: Motion Sickness Additional Past Anesthesia/Blood Transfusion Reaction / Comment(s): NO ANESTHESIA HX Past Psychological History: No Psychological Hx Reported Smoking Status: Never smoker Past Alcohol Use History: None Reported Past Drug Use History: Marijuana - Past Family History Mother Family Medical History: No Reported History General Exam General appearance: alert, in no apparent distress Head exam: Present: atraumatic, normocephalic Eye exam: Present: normal appearance. Absent: scleral icterus, conjunctival injection Neck exam: Present: normal inspection Respiratory exam: Present: normal lung sounds bilaterally. Absent: respiratory distress, wheezes, rales, rhonchi, stridor Cardiovascular Exam: Present: regular rate, normal rhythm, normal heart sounds. Absent: systolic murmur, diastolic murmur, rubs, gallop GI/Abdominal exam: Present: soft, normal bowel sounds. Absent: distended, tenderness, guarding, rebound, rigid, mass, pulsatile mass, hernia Extremities exam: Present: normal inspection, normal capillary refill. Absent: pedal edema, calf tenderness Back exam: Present: normal inspection, CVA tenderness (R). Absent: CVA tenderness (L) Neurological exam: Present: alert Skin exam: Present: warm, dry, intact, normal color. Absent: rash Course Vital Signs 10/04/22 10/04/22 20:42 23:18 Temperature 100.1 F H 98.1 F Pulse Rate 79 Respiratory 18 Rate Blood Pressure 114/76 O2 Sat by Pulse 98 Oximetry Medical Decision Making - Medical Decision Making Was pt. sent in by a medical professional or institution ([facility], [employer], urgent care, hospital, or residential...) When possible be specific @ -[No] Did you speak to anyone other than the patient for history (EMS, parent, family, police, friend...)? What history was obtained from this source @ -[No] Did you review nursing and triage notes (agree or disagree)? Why? @ -[I reviewed and agree with nursing and triage notes] Were old charts reviewed (outside hosp., previous admission, EMS record, old EKG, old radiological studies, urgent care reports/EKG's, residential records)? Report findings @ -[No old charts were reviewed] Differential Diagnosis (chest pain, altered mental status, abdominal pain women, abdominal pain men, vaginal bleeding, weakness, fever, dyspnea, syncope, headache, dizziness, GI bleed, back pain, seizure, CVA, palpatations, mental health, musculoskeletal)? @ -[Differential Abdominal Pain Women: Appendicitis, Cholecystitis, diverticulosis, ischemic bowel, pancreatitis, hepatitis, UTI, gastroenteritis, AAA, incarcerated hernia, bowel obstruction, constipation, inflammatory bowel, hepatitis, peptic ulcer disease, splenic infarction, perforated viscus, vulvitis, ovarian torsion, PID, kidney stone, placenta abruption, this is not meant to be an all-inclusive list EKG interpreted by me (3pts min.). @ -[ X-rays interpreted by me (1pt min.). @ -[None done] CT interpreted by me (1pt min.). @ -[None done] U/S interpreted by me (1pt. min.). @ -[None done] What testing was considered but not performed or refused? (CT, X-rays, U/S, labs)? Why? @ -[None] What meds were considered but not given or refused? Why? @ -[None] Did you discuss the management of the patient with other professionals (professionals i.e. , PA, [employer], lab, RT, psych nurse, social service director, tanker driver, teacher, regulatory compliance officer, counter caser)? Give summary @ -[No] Was smoking cessation discussed for >3mins.? @ -[No] Was critical care preformed (if so, how long)? @ -[No] Were there social determinants of health that impacted care today? How? (Homelessness, low income, unemployed, alcoholism, drug addiction, transportation, low edu. Level, literacy, decrease access to med. care, half-way, rehab)? @ -[No] Was there de-escalation of care discussed even if they declined (Discuss DNR or withdrawal of care, Hospice)? DNR status @ -[No] What co-morbidities impacted this encounter? (DM, HTN, Smoking, COPD, CAD, Cancer, CVA, ARF, Chemo, Hep., AIDS, mental health diagnosis, sleep apnea, morbid obesity)? @ -[None] Was patient admitted / discharged? Hospital course, mention meds given and route, prescriptions, significant lab abnormalities, going to OR and other pertinent info. @ -[Patient be discharged with a course of antibiotics for urinary tract infection Undiagnosed new problem with uncertain prognosis? @ -[No] Drug Therapy requiring intensive monitoring for toxicity (Heparin, Nitro, Insulin, Cardizem)? @ -[No] Were any procedures done? @ -[No] Diagnosis/symptom? @ -[Acute urinary tract infection Acute, or Chronic, or Acute on Chronic? @ -[default] Uncomplicated (without systemic symptoms) or Complicated (systemic symptoms)? @ -[Uncomplicated Side effects of treatment? @ -[No] Exacerbation, Progression, or Severe Exacerbation? @ -[No] Poses a threat to life or bodily function? How? (Chest pain, [place], [place], pneumonia, PE, COPD, DKA, ARF, appy, cholecystitis, CVA, Diverticulitis, Homicidal, Suicidal, threat to staff... and all critical care pts) @ -[No] - Lab Data Lab Results 10/04/22 10/04/22 Range/Units 20:58 21:03 Urine Color Dark Yellow Urine Appearance Cloudy H (Clear) Urine pH 8.0 (5.0-8.0) Ur Specific [place] 1.016 (1.001-1.035) Urine Protein 2+ H (Negative) Urine Glucose (UA) Negative (Negative) Urine Ketones Negative (Negative) Urine Blood Large H (Negative) Urine Nitrite Positive H (Negative) Urine Bilirubin Negative (Negative) Urine Urobilinogen <2.0 (<2.0) mg/dL Ur Leukocyte Esterase Large H (Negative) Urine RBC >182 H (0-5) /hpf Urine WBC >182 H (0-5) /hpf Ur Squamous Epith Cells 1 (0-4) /hpf Urine HCG, Qual Not Detected (Not Detectd) Disposition Clinical Impression: Urinary tract infection Disposition: HOME SELF-CARE Condition: Good Instructions (If sedation given, give patient instructions): Urinary Tract Infection in Women (ED) Prescriptions: Cephalexin [Keflex] 500 mg PO Q6HR #28 cap Is patient prescribed a controlled substance at d/c from ED?: No Referrals: Terry Rivera MD [Primary Care Provider] - 1-2 days
[2022-10-04] MEDS ORDERED: KETOROLAC 15 MG/ML 1 ML VIAL IVP STA (22:46)
[2022-10-04] MEDS ORDERED: ONDANSETRON 4 MG/2 ML VIAL IVP STA (22:46)
[2022-10-04 23:19] VITALS: TEMP 98.1
== END 2022-10-04 23:19 | disposition home or self-care (01) ==
LOC: EC 20:20
DX: N39.0 Urinary tract infection, site not specified (principal); F12.90 Cannabis use, unspecified, uncomplicated; Z90.49 Acquired absence of other specified parts of digestive tract
CPT/HCPCS: 81001; 81025; 87086; 87077; 87186; 99284; 96365; 96375 ×2; J2405; J0696; J1885

== ENCOUNTER 2022-10-23 08:00 | Emergency (ER) | payer OTHER ==
[2022-10-23] MEDS ORDERED: METOCLOPRAMIDE 5 MG/ML 2 ML VIAL IVP STA (08:07)
[2022-10-23] MEDS ORDERED: FAMOTIDINE 20 MG/2 ML VIAL IV STA (08:07)
[2022-10-23] MEDS ORDERED: diphenhydrAMINE 50 MG/ML 1 ML VIAL IVP STA ×2 (08:07→10:55)
[2022-10-23] MEDS ORDERED: SODIUM CHLORIDE 0.9% 2,000 ML IV STA (08:07)
--- NOTE | 2022-10-23 08:17 | ED ---
Nausea/Vomiting/Diarrhea HPI - General Chief complaint: Nausea/Vomiting/Diarrhea Stated complaint: vomiting Time Seen by Provider: 10/23/22 08:03 Source: patient, RN notes reviewed Mode of arrival: ambulatory Limitations: no limitations - History of Present Illness Initial comments: This is a 27-year-old female presents emergency Department with chief complaint nausea vomiting. This is a recurrent issue for this patient. Patient states that she has mild upper abdominal burning, discomfort. Patient denies any chest pain or shortness breath. 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 Patient continues to use she states that she may be . Patient denies any fevers chills no recent surgeries. - Related Data Previous Rx's Medication Instructions Recorded Cephalexin [Keflex] 500 mg PO Q6HR #28 cap 10/04/22 Allergies Allergy/AdvReac Type Severity Reaction Status Date / Time No Known Allergies Allergy Verified 10/23/22 08:03 Review of Systems ROS Statement: Those systems with pertinent positive or pertinent negative responses have been documented in the HPI. ROS Other: All systems not noted in ROS Statement are negative. Past Medical History Past Medical History: GERD/Reflux Additional Past Medical History / Comment(s): MIGRAINES, BACK PAIN History of Any Multi-Drug Resistant Organisms: None Reported Past Surgical History: Cholecystectomy, Hernia Repair Past Anesthesia/Blood Transfusion Reactions: Motion Sickness Additional Past Anesthesia/Blood Transfusion Reaction / Comment(s): NO ANESTHESIA HX Past Psychological History: No Psychological Hx Reported Smoking Status: Never smoker Past Alcohol Use History: None Reported Past Drug Use History: Marijuana - Past Family History Mother Family Medical History: No Reported History General Exam Limitations: no limitations General appearance: alert, in no apparent distress Head exam: Present: atraumatic, normocephalic, normal inspection Eye exam: Present: normal appearance, PERRL, EOMI. Absent: scleral icterus, conjunctival injection, periorbital swelling ENT exam: Present: normal exam, normal oropharynx, mucous membranes moist Neck exam: Present: normal inspection, full ROM. Absent: tenderness, meningismus, lymphadenopathy Respiratory exam: Present: normal lung sounds bilaterally. Absent: respiratory distress, wheezes, rales, rhonchi, stridor Cardiovascular Exam: Present: normal rhythm, tachycardia, normal heart sounds. Absent: systolic murmur, diastolic murmur, rubs, gallop, clicks GI/Abdominal exam: Present: soft, tenderness (Mild diffuse), normal bowel sounds. Absent: distended, guarding, rebound, rigid Back exam: Absent: CVA tenderness (R), CVA tenderness (L) Course Vital Signs 10/23/22 10/23/22 10/23/22 08:01 08:30 09:45 Temperature 98.5 F 99.1 F 98.8 F Pulse Rate 102 H 67 60 Respiratory 18 18 17 Rate Blood Pressure 127/83 124/76 138/79 O2 Sat by Pulse 98 100 99 Oximetry 10/23/22 11:09 Temperature 99.1 F Pulse Rate 78 Respiratory 16 Rate Blood Pressure 138/82 O2 Sat by Pulse 98 Oximetry Medical Decision Making - Medical Decision Making Was pt. sent in by a medical professional or institution ([facility] Ghosh, BOAT JOINER HELPER, urgent care, hospital, or senior living...) When possible be specific @ -No Did you speak to anyone other than the patient for history (EMS, parent, family, police, friend...)? What history was obtained from this source @ -No Did you review nursing and triage notes (agree or disagree)? Why? @ -I reviewed and agree with nursing and triage notes Were old charts reviewed (outside hosp., previous admission, EMS record, old EKG, old radiological studies, urgent care reports/EKG's, senior living records)? Report findings @ -Prior labs, ER visits, imaging Differential Diagnosis (chest pain, altered mental status, abdominal pain women, abdominal pain men, vaginal bleeding, weakness, fever, dyspnea, syncope, headache, dizziness, GI bleed, back pain, seizure, CVA, palpatations, mental health, musculoskeletal)? @ -Differential Abdominal Pain Women: Appendicitis, Cholecystitis, diverticulosis, ischemic bowel, pancreatitis, hepatitis, UTI, gastroenteritis, AAA, incarcerated hernia, bowel obstruction, constipation, inflammatory bowel, hepatitis, peptic ulcer disease, splenic infarction, perforated viscus, vulvitis, ovarian torsion, PID, kidney stone, placenta abruption, this is not meant to be an all-inclusive listble EKG interpreted by me (3pts min.). @ -None X-rays interpreted by me (1pt min.). @ -None done CT interpreted by me (1pt min.). @ -None done U/S interpreted by me (1pt. min.). @ -None done What testing was considered but not performed or refused? (CT, X-rays, U/S, labs)? Why? @ -None What meds were considered but not given or refused? Why? @ -None Did you discuss the management of the patient with other professionals (professionals i.e. , PA, BOAT JOINER HELPER, lab, RT, psych nurse, psychotherapist social worker, mitering machine operator, teacher, special forces officer, case folder)? Give summary @ -No Was smoking cessation discussed for >3mins.? @ -No Was critical care preformed (if so, how long)? @ -No Were there social determinants of health that impacted care today? How? (Homelessness, low income, unemployed, alcoholism, drug addiction, transportation, low edu. Level, literacy, decrease access to med. care, group home, rehab)? @ -No Was there de-escalation of care discussed even if they declined (Discuss DNR or withdrawal of care, Hospice)? DNR status @ -No What co-morbidities impacted this encounter? (DM, HTN, Smoking, COPD, CAD, Cancer, CVA, ARF, Chemo, Hep., AIDS, mental health diagnosis, sleep apnea, morbid obesity)? @ -Cyclic vomiting syndrome, marijuana abuse Was patient admitted / discharged? Hospital course, mention meds given and route, prescriptions, significant lab abnormalities, going to OR and other pertinent info. @ -Discharge patient is improved after IV fluids, antiemetics by Dr. ash is unremarkable. Patient has cyclic vomiting syndrome from marijuana use. Patient's does have antiemetics at home will continue his medications return parameters discussed. Undiagnosed new problem with uncertain prognosis? @ -No Drug Therapy requiring intensive monitoring for toxicity (Heparin, Nitro, Insulin, Cardizem)? @ -No Were any procedures done? @ -No Diagnosis/symptom? @ -Cyclic vomiting syndrome Acute, or Chronic, or Acute on Chronic? @ -Acute on chronic Uncomplicated (without systemic symptoms) or Complicated (systemic symptoms)? @ -Uncomplicated Side effects of treatment? @ -No Exacerbation, Progression, or Severe Exacerbation? @ -No Poses a threat to life or bodily function? How? (Chest pain, [place], [place], pneumonia, PE, COPD, DKA, ARF, appy, cholecystitis, CVA, Diverticulitis, Homicidal, Suicidal, threat to staff... and all critical care pts) @ -No - Lab Data Result diagrams: 10/23/22 08:14 10/23/22 08:14 Lab Results 10/23/22 10/23/22 10/23/22 Range/Units 08:14 08:14 08:14 WBC 14.1 H (3.8-10.6) k/uL RBC 5.14 (3.80-5.40) m/uL Hgb 15.3 (11.4-16.0) gm/dL Hct 44.6 (34.0-46.0) % MCV 86.8 (80.0-100.0) fL MCH 29.8 (25.0-35.0) pg MCHC 34.4 (31.0-37.0) g/dL RDW 12.4 (11.5-15.5) % Plt Count 317 (150-450) k/uL MPV 9.0 Neutrophils % 86 % Lymphocytes % 9 % Monocytes % 5 % Eosinophils % 1 % Basophils % 0 % Neutrophils # 12.1 H (1.3-7.7) k/uL Lymphocytes # 1.2 (1.0-4.8) k/uL Monocytes # 0.6 (0-1.0) k/uL Eosinophils # 0.1 (0-0.7) k/uL Basophils # 0.0 (0-0.2) k/uL Sodium (137-145) mmol/L Potassium (3.5-5.1) mmol/L Chloride (98-107) mmol/L Carbon Dioxide (22-30) mmol/L Anion Gap mmol/L BUN (7-17) mg/dL Creatinine (0.52-1.04) mg/dL Est GFR (CKD-EPI)AfAm (>60 ml/min/1.73 sqM) Est GFR (CKD-EPI)NonAf (>60 ml/min/1.73 sqM) Glucose (74-99) mg/dL Calcium (8.4-10.2) mg/dL Total Bilirubin (0.2-1.3) mg/dL AST (14-36) U/L ALT (4-34) U/L Alkaline Phosphatase (38-126) U/L Total Protein (6.3-8.2) g/dL Albumin (3.5-5.0) g/dL Lipase (23-300) U/L Urine Color Yellow Urine Appearance Cloudy H (Clear) Urine pH 5.5 (5.0-8.0) Ur Specific [place] 1.031 (1.001-1.035) Urine Protein 1+ H (Negative) Urine Glucose (UA) Negative (Negative) Urine Ketones 3+ H (Negative) Urine Blood Small H (Negative) Urine Nitrite Negative (Negative) Urine Bilirubin Negative (Negative) Urine Urobilinogen <2.0 (<2.0) mg/dL Ur Leukocyte Esterase Negative (Negative) Urine RBC 2 (0-5) /hpf Urine WBC 3 (0-5) /hpf Ur Squamous Epith Cells <1 (0-4) /hpf Urine Mucus Many H (None) /hpf Urine HCG, Qual Not Detected (Not Detectd) 10/23/22 Range/Units 08:14 WBC (3.8-10.6) k/uL RBC (3.80-5.40) m/uL Hgb (11.4-16.0) gm/dL Hct (34.0-46.0) % MCV (80.0-100.0) fL MCH (25.0-35.0) pg MCHC (31.0-37.0) g/dL RDW (11.5-15.5) % Plt Count (150-450) k/uL MPV Neutrophils % % Lymphocytes % % Monocytes % % Eosinophils % % Basophils % % Neutrophils # (1.3-7.7) k/uL Lymphocytes # (1.0-4.8) k/uL Monocytes # (0-1.0) k/uL Eosinophils # (0-0.7) k/uL Basophils # (0-0.2) k/uL Sodium 140 (137-145) mmol/L Potassium 3.9 (3.5-5.1) mmol/L Chloride 106 (98-107) mmol/L Carbon Dioxide 14 L (22-30) mmol/L Anion Gap 20 mmol/L BUN 14 (7-17) mg/dL Creatinine 0.67 (0.52-1.04) mg/dL Est GFR (CKD-EPI)AfAm >90 (>60 ml/min/1.73 sqM) Est GFR (CKD-EPI)NonAf >90 (>60 ml/min/1.73 sqM) Glucose 148 H (74-99) mg/dL Calcium 10.3 H (8.4-10.2) mg/dL Total Bilirubin 0.8 (0.2-1.3) mg/dL AST 26 (14-36) U/L ALT 25 (4-34) U/L Alkaline Phosphatase 68 (38-126) U/L Total Protein 8.9 H (6.3-8.2) g/dL Albumin 5.4 H (3.5-5.0) g/dL Lipase 44 (23-300) U/L Urine Color Urine Appearance (Clear) Urine pH (5.0-8.0) Ur Specific [place] (1.001-1.035) Urine Protein (Negative) Urine Glucose (UA) (Negative) Urine Ketones (Negative) Urine Blood (Negative) Urine Nitrite (Negative) Urine Bilirubin (Negative) Urine Urobilinogen (<2.0) mg/dL Ur Leukocyte Esterase (Negative) Urine RBC (0-5) /hpf Urine WBC (0-5) /hpf Ur Squamous Epith Cells (0-4) /hpf Urine Mucus (None) /hpf Urine HCG, Qual (Not Detectd) Disposition Clinical Impression: Cyclic vomiting syndrome Disposition: HOME SELF-CARE Condition: Stable Instructions (If sedation given, give patient instructions): Acute Nausea and Vomiting (ED) Additional Instructions: Please return to the Emergency Department if symptoms worsen or any other concerns. Is patient prescribed a controlled substance at d/c from ED?: No Referrals: Terry Rivera MD [Primary Care Provider] - 1-2 days Time of Disposition: 11:45
[2022-10-23 08:52] LABS: Basophils % (A) 0 %; Eosinophils # (A) 0.1 k/uL (0-0.7); Eosinophils % (A) 1 %; HCT 44.6 % (34.0-46.0); HGB 15.3 gm/dL (11.4-16.0); Lymphocytes # (A) 1.2 k/uL (1.0-4.8); Lymphocytes % (A) 9 %; MCH 29.8 pg (25.0-35.0); MCHC 34.4 g/dL (31.0-37.0); MCV 86.8 fL (80.0-100.0); Monocytes # (A) 0.6 k/uL (0-1.0); Monocytes % (A) 5 %; Neutrophils # (A) 12.1 k/uL (1.3-7.7); Neutrophils % (A) 86 %; Platelet Count 317 k/uL (150-450); RBC 5.14 m/uL (3.80-5.40); RDW 12.4 % (11.5-15.5); WBC 14.1 k/uL (3.8-10.6)
[2022-10-23 08:59] LABS: ALT 25 U/L (4-34); AST 26 U/L (14-36); African American GFR (CKD) >90 (>60 ml/min/1.73 sqM); Albumin 5.4 g/dL (3.5-5.0); Alkaline Phosphatase 68 U/L (38-126); Anion Gap 20 mmol/L; Blood Urea Nitrogen 14 mg/dL (7-17); Calcium 10.3 mg/dL (8.4-10.2); Carbon Dioxide 14 mmol/L (22-30); Chloride 106 mmol/L (98-107); Glucose 148 mg/dL (74-99); Lipase 44 U/L (23-300); Non-African American GFR(CKD) >90 (>60 ml/min/1.73 sqM); Potassium 3.9 mmol/L (3.5-5.1); Sodium 140 mmol/L (137-145); Total Bilirubin 0.8 mg/dL (0.2-1.3); Total Protein 8.9 g/dL (6.3-8.2)
[2022-10-23 10:14] LABS: Appearance,Urine Cloudy (Clear); Bilirubin,Urine Negative (Negative); Blood,Urine Small (Negative); Color,Urine Yellow; Glucose,Urine (UA) Negative (Negative); Ketones,Urine 3+ (Negative); Leukocyte Esterase,Urine Negative (Negative); Mucus,Urine Many /hpf; Nitrite,Urine Negative (Negative); PH, Urine 5.5 (5.0-8.0); Protein,Urine 1+ (Negative); RBC,Urine 2 /hpf (0-5); Specific Gravity,Urine 1.031 (1.001-1.035); Squamous Epithelial Cell,Urine <1 /hpf (0-4); Urobilinogen,Urine <2.0 mg/dL (<2.0); WBC,Urine 3 /hpf (0-5)
[2022-10-23] MEDS ORDERED: droPERidol 5 MG/2 ML VIAL IVP ONE (10:55)
[2022-10-23 12:16] VITALS: BP 140/86; PULSE 74; RESP 18; TEMP 98.4
== END 2022-10-23 12:29 | disposition home or self-care (01) ==
LOC: EC 08:00
DX: R11.15 Cyclical vomiting syndrome unrelated to migraine (principal); F12.90 Cannabis use, unspecified, uncomplicated; Z90.49 Acquired absence of other specified parts of digestive tract
CPT/HCPCS: 36415; 80053; 83690; 85025; 81001; 81025; 99284; 96374; 96375 ×3; 96376; 96361 ×2; J1200; J2765; J1790

== ENCOUNTER 2022-10-24 17:25 | Emergency (ER) | payer OTHER ==
[2022-10-24 17:34] VITALS: TEMP 99.1
[2022-10-24 20:01] LABS: Basophils % (A) 0 %; Eosinophils # (A) 0.1 k/uL (0-0.7); Eosinophils % (A) 1 %; HCT 38.5 % (34.0-46.0); HGB 13.4 gm/dL (11.4-16.0); Lymphocytes # (A) 1.7 k/uL (1.0-4.8); Lymphocytes % (A) 17 %; MCH 30.5 pg (25.0-35.0); MCHC 34.8 g/dL (31.0-37.0); MCV 87.7 fL (80.0-100.0); Mean Platelet Volume 10.7; Monocytes # (A) 0.6 k/uL (0-1.0); Monocytes % (A) 6 %; Neutrophils # (A) 7.5 k/uL (1.3-7.7); Neutrophils % (A) 76 %; Platelet Count 224 k/uL (150-450); RBC 4.39 m/uL (3.80-5.40); RDW 12.2 % (11.5-15.5)
[2022-10-24 20:10] LABS: ALT 21 U/L (4-34); AST 24 U/L (14-36); African American GFR (CKD) >90 (>60 ml/min/1.73 sqM); Albumin 4.4 g/dL (3.5-5.0); Alkaline Phosphatase 62 U/L (38-126); Anion Gap 15 mmol/L; Blood Urea Nitrogen 12 mg/dL (7-17); Calcium 9.2 mg/dL (8.4-10.2); Carbon Dioxide 19 mmol/L (22-30); Chloride 102 mmol/L (98-107); Glucose 76 mg/dL (74-99); Lipase 141 U/L (23-300); Non-African American GFR(CKD) >90 (>60 ml/min/1.73 sqM); Potassium 3.6 mmol/L (3.5-5.1); Sodium 136 mmol/L (137-145); Total Protein 7.2 g/dL (6.3-8.2)
[2022-10-24] MEDS ORDERED: ONDANSETRON 4 MG/2 ML VIAL IVP STA ×2 (20:18→21:51)
[2022-10-24] MEDS ORDERED: SODIUM CHLORIDE 0.9% 2,000 ML IV ONE (20:32)
[2022-10-24] MEDS ORDERED: FAMOTIDINE 20 MG/2 ML VIAL IV STA (21:10)
--- NOTE | 2022-10-24 21:16 | ED ---
General Adult HPI - General Chief complaint: Nausea/Vomiting/Diarrhea Stated complaint: vomiting Time Seen by Provider: 10/24/22 18:37 Source: patient Mode of arrival: ambulatory Limitations: no limitations - History of Present Illness Initial comments: 27-year-old female with past medical history of hiatal hernia, cyclic vomiting syndrome who presents to the emergency department reporting nausea and vomiting. Patient was seen yesterday in the emergency department for same complaints. States that she normally has Zofran at home to take for her symptoms however is out of her Zofran. She denies smoking marijuana. States that the last she smokes was 2 weeks ago. This is a long-standing issue and patient has had an EGD for this issue last year. She denies diarrhea. No sick contacts. Has generalized abdominal pain but states none of her symptoms are worse with the typically are. No concern for . No alleviating, precipitating or modifying factors - Related Data Previous Rx's Medication Instructions Recorded Ondansetron Odt [Zofran Odt] 4 mg PO Q8HR PRN #30 tab 10/24/22 Allergies Allergy/AdvReac Type Severity Reaction Status Date / Time No Known Allergies Allergy Verified 10/24/22 17:34 Review of Systems ROS Statement: Those systems with pertinent positive or pertinent negative responses have been documented in the HPI. ROS Other: All systems not noted in ROS Statement are negative. Past Medical History Past Medical History: GERD/Reflux Additional Past Medical History / Comment(s): MIGRAINES, BACK PAIN History of Any Multi-Drug Resistant Organisms: None Reported Past Surgical History: Cholecystectomy, Hernia Repair Past Anesthesia/Blood Transfusion Reactions: Motion Sickness Additional Past Anesthesia/Blood Transfusion Reaction / Comment(s): NO ANESTHESIA HX Past Psychological History: No Psychological Hx Reported Smoking Status: Never smoker Past Alcohol Use History: None Reported Past Drug Use History: Marijuana - Past Family History Mother Family Medical History: No Reported History General Exam Limitations: no limitations General appearance: alert, other (actively vomiting) Head exam: Present: atraumatic, normocephalic, normal inspection Eye exam: Present: normal appearance, PERRL, EOMI. Absent: scleral icterus, conjunctival injection, periorbital swelling ENT exam: Present: normal exam, mucous membranes moist Neck exam: Present: normal inspection. Absent: tenderness, meningismus, lymphadenopathy Respiratory exam: Present: normal lung sounds bilaterally. Absent: respiratory distress, wheezes, rales, rhonchi, stridor Cardiovascular Exam: Present: regular rate, normal rhythm, normal heart sounds. Absent: systolic murmur, diastolic murmur, rubs, gallop, clicks GI/Abdominal exam: Present: soft, tenderness (Generalized), normal bowel sounds. Absent: distended, guarding, rebound, rigid Extremities exam: Present: normal inspection, full ROM, normal capillary refill. Absent: tenderness, pedal edema, joint swelling, calf tenderness Back exam: Present: normal inspection Neurological exam: Present: alert, oriented X3, CN II-XII intact Psychiatric exam: Present: normal affect, normal mood Skin exam: Present: warm, dry, intact, normal color. Absent: rash Course Vital Signs 10/24/22 10/24/22 17:31 22:40 Temperature 99.1 F Pulse Rate 68 74 Respiratory 26 H 18 Rate Blood Pressure 124/68 101/60 O2 Sat by Pulse 100 100 Oximetry Medical Decision Making - Medical Decision Making Was pt. sent in by a medical professional or institution ([facility], FINANCIAL ASSISTANT, urgent care, hospital, or halfway...) When possible be specific @ -No Did you speak to anyone other than the patient for history (EMS, parent, family, police, friend...)? What history was obtained from this source @ -I spoke with the patient's friend who is in the room Did you review nursing and triage notes (agree or disagree)? Why? @ -I reviewed and agree with nursing and triage notes Were old charts reviewed (outside hosp., previous admission, EMS record, old EKG, old radiological studies, urgent care reports/EKG's, halfway records)? Report findings @ -I reviewed old charts. Patient was just in the emergency room yesterday for same complaint Differential Diagnosis (chest pain, altered mental status, abdominal pain women, abdominal pain men, vaginal bleeding, weakness, fever, dyspnea, syncope, headache, dizziness, GI bleed, back pain, seizure, CVA, palpatations, mental health, musculoskeletal)? @ -Differential Abdominal Pain Women: Appendicitis, Cholecystitis, diverticulosis, ischemic bowel, pancreatitis, hepatitis, UTI, gastroenteritis, AAA, incarcerated hernia, bowel obstruction, constipation, inflammatory bowel, hepatitis, peptic ulcer disease, splenic infarction, perforated viscus, vulvitis, ovarian torsion, PID, kidney stone, placenta abruption, this is not meant to be an all-inclusive list EKG interpreted by me (3pts min.). @ -Not completed X-rays interpreted by me (1pt min.). @ -None done CT interpreted by me (1pt min.). @ -None done U/S interpreted by me (1pt. min.). @ -None done What testing was considered but not performed or refused? (CT, X-rays, U/S, labs)? Why? @ -None What meds were considered but not given or refused? Why? @ -None Did you discuss the management of the patient with other professionals (professionals i.e. , PA, FINANCIAL ASSISTANT, lab, RT, psych nurse, social work professor, energy efficiency engineer, teacher, loan officer, rehabilitation caseworker)? Give summary @ -No Was smoking cessation discussed for >3mins.? @ -No Was critical care preformed (if so, how long)? @ -No Were there social determinants of health that impacted care today? How? (Homelessness, low income, unemployed, alcoholism, drug addiction, transportation, low edu. Level, literacy, decrease access to med. care, nursing home, rehab)? @ -No Was there de-escalation of care discussed even if they declined (Discuss DNR or withdrawal of care, Hospice)? DNR status @ -No What co-morbidities impacted this encounter? (DM, HTN, Smoking, COPD, CAD, Cancer, CVA, ARF, Chemo, Hep., AIDS, mental health diagnosis, sleep apnea, morbid obesity)? @ -Hiatal hernia, cyclic vomiting syndrome Was patient admitted / discharged? Hospital course, mention meds given and route, prescriptions, significant lab abnormalities, going to OR and other pertinent info. @ -Upon arrival patient was placed into room 26. A thorough history and physical exam was performed. IV access is established. She is given a 2 L bolus of normal saline and 4 mg of Zofran. She is also given 20 mg of Pepcid. Patient re-evaluated after medication administration and is improved. Patient will be discharged at this time with a prescription for Zofran. Instructed to continue not smoking marijuana and follow-up with doctor. Return for any new or worsening symptoms Undiagnosed new problem with uncertain prognosis? @ -No Drug Therapy requiring intensive monitoring for toxicity (Heparin, Nitro, Insulin, Cardizem)? @ -No Were any procedures done? @ -No Diagnosis/symptom? @ -Acute nausea and vomiting, cyclic vomiting syndrome Acute, or Chronic, or Acute on Chronic? @ -Acute on chronic Uncomplicated (without systemic symptoms) or Complicated (systemic symptoms)? @ -Complicated Side effects of treatment? @ -No Exacerbation, Progression, or Severe Exacerbation? @ -No Poses a threat to life or bodily function? How? (Chest pain, [place], [place], pneumonia, PE, COPD, DKA, ARF, appy, cholecystitis, CVA, Diverticulitis, Homicidal, Suicidal, threat to staff... and all critical care pts) @ -No - Lab Data Result diagrams: 10/24/22 19:49 10/24/22 19:49 Lab Results 10/24/22 10/24/22 10/24/22 Range/Units 19:49 19:49 20:49 WBC 10.0 (3.8-10.6) k/uL RBC 4.39 (3.80-5.40) m/uL Hgb 13.4 (11.4-16.0) gm/dL Hct 38.5 (34.0-46.0) % MCV 87.7 (80.0-100.0) fL MCH 30.5 (25.0-35.0) pg MCHC 34.8 (31.0-37.0) g/dL RDW 12.2 (11.5-15.5) % Plt Count 224 (150-450) k/uL MPV 10.7 Neutrophils % 76 % Lymphocytes % 17 % Monocytes % 6 % Eosinophils % 1 % Basophils % 0 % Neutrophils # 7.5 (1.3-7.7) k/uL Lymphocytes # 1.7 (1.0-4.8) k/uL Monocytes # 0.6 (0-1.0) k/uL Eosinophils # 0.1 (0-0.7) k/uL Basophils # 0.0 (0-0.2) k/uL Sodium 136 L (137-145) mmol/L Potassium 3.6 (3.5-5.1) mmol/L Chloride 102 (98-107) mmol/L Carbon Dioxide 19 L (22-30) mmol/L Anion Gap 15 mmol/L BUN 12 (7-17) mg/dL Creatinine 0.64 (0.52-1.04) mg/dL Est GFR (CKD-EPI)AfAm >90 (>60 ml/min/1.73 sqM) Est GFR (CKD-EPI)NonAf >90 (>60 ml/min/1.73 sqM) Glucose 76 (74-99) mg/dL Calcium 9.2 (8.4-10.2) mg/dL Total Bilirubin 1.0 (0.2-1.3) mg/dL AST 24 (14-36) U/L ALT 21 (4-34) U/L Alkaline Phosphatase 62 (38-126) U/L Total Protein 7.2 (6.3-8.2) g/dL Albumin 4.4 (3.5-5.0) g/dL Lipase 141 (23-300) U/L Urine Color Yellow Urine Appearance Cloudy H (Clear) Urine pH 7.0 (5.0-8.0) Ur Specific [place] 1.035 (1.001-1.035) Urine Protein 1+ H (Negative) Urine Glucose (UA) Negative (Negative) Urine Ketones 4+ H (Negative) Urine Blood Negative (Negative) Urine Nitrite Negative (Negative) Urine Bilirubin Negative (Negative) Urine Urobilinogen 4.0 (<2.0) mg/dL Ur Leukocyte Esterase Small H (Negative) Urine RBC 1 (0-5) /hpf Urine WBC 4 (0-5) /hpf Ur Squamous Epith Cells 19 H (0-4) /hpf Urine Bacteria Rare H (None) /hpf Urine Mucus Many H (None) /hpf Urine HCG, Qual (Not Detectd) 10/24/22 Range/Units 20:49 WBC (3.8-10.6) k/uL RBC (3.80-5.40) m/uL Hgb (11.4-16.0) gm/dL Hct (34.0-46.0) % MCV (80.0-100.0) fL MCH (25.0-35.0) pg MCHC (31.0-37.0) g/dL RDW (11.5-15.5) % Plt Count (150-450) k/uL MPV Neutrophils % % Lymphocytes % % Monocytes % % Eosinophils % % Basophils % % Neutrophils # (1.3-7.7) k/uL Lymphocytes # (1.0-4.8) k/uL Monocytes # (0-1.0) k/uL Eosinophils # (0-0.7) k/uL Basophils # (0-0.2) k/uL Sodium (137-145) mmol/L Potassium (3.5-5.1) mmol/L Chloride (98-107) mmol/L Carbon Dioxide (22-30) mmol/L Anion Gap mmol/L BUN (7-17) mg/dL Creatinine (0.52-1.04) mg/dL Est GFR (CKD-EPI)AfAm (>60 ml/min/1.73 sqM) Est GFR (CKD-EPI)NonAf (>60 ml/min/1.73 sqM) Glucose (74-99) mg/dL Calcium (8.4-10.2) mg/dL Total Bilirubin (0.2-1.3) mg/dL AST (14-36) U/L ALT (4-34) U/L Alkaline Phosphatase (38-126) U/L Total Protein (6.3-8.2) g/dL Albumin (3.5-5.0) g/dL Lipase (23-300) U/L Urine Color Urine Appearance (Clear) Urine pH (5.0-8.0) Ur Specific [place] (1.001-1.035) Urine Protein (Negative) Urine Glucose (UA) (Negative) Urine Ketones (Negative) Urine Blood (Negative) Urine Nitrite (Negative) Urine Bilirubin (Negative) Urine Urobilinogen (<2.0) mg/dL Ur Leukocyte Esterase (Negative) Urine RBC (0-5) /hpf Urine WBC (0-5) /hpf Ur Squamous Epith Cells (0-4) /hpf Urine Bacteria (None) /hpf Urine Mucus (None) /hpf Urine HCG, Qual Not Detected (Not Detectd) Disposition Clinical Impression: Cyclic vomiting syndrome, Intractable nausea and vomiting Disposition: HOME SELF-CARE Condition: Stable Instructions (If sedation given, give patient instructions): Acute Nausea and Vomiting (ED) Prescriptions: Ondansetron Odt [Zofran Odt] 4 mg PO Q8HR PRN #30 tab PRN Reason: Nausea Is patient prescribed a controlled substance at d/c from ED?: No Referrals: Terry Rivera MD [Primary Care Provider] - 1-2 days
[2022-10-24 21:26] LABS: Appearance,Urine Cloudy (Clear); Bacteria,Urine Rare /hpf; Bilirubin,Urine Negative (Negative); Blood,Urine Negative (Negative); Color,Urine Yellow; Glucose,Urine (UA) Negative (Negative); Ketones,Urine 4+ (Negative); Leukocyte Esterase,Urine Small (Negative); Mucus,Urine Many /hpf; Nitrite,Urine Negative (Negative); Protein,Urine 1+ (Negative); RBC,Urine 1 /hpf (0-5); Specific Gravity,Urine 1.035 (1.001-1.035); Squamous Epithelial Cell,Urine 19 /hpf (0-4); WBC,Urine 4 /hpf (0-5)
[2022-10-24] MEDS ORDERED: LORazepam 2 MG/ML INJ IV STA (21:49)
[2022-10-24] MEDS ORDERED: METOCLOPRAMIDE 5 MG/ML 2 ML VIAL IVP STA (21:49)
[2022-10-24 22:51] VITALS: BP 101/60; PULSE 74; RESP 18
== END 2022-10-24 22:51 | disposition home or self-care (01) ==
LOC: EC 17:25
DX: R11.15 Cyclical vomiting syndrome unrelated to migraine (principal); R11.2 Nausea with vomiting, unspecified; F12.90 Cannabis use, unspecified, uncomplicated
CPT/HCPCS: 36415; 80053; 83690; 85025; 81001; 81025; 99284; 96374; 96375 ×3; 96376; 96361 ×2; J2060; J2765; J2405

== ENCOUNTER → 2022-11-01 | Outpatient (CLI) | payer OTHER ==
[2022-11-01 10:11] VITALS: BP 119/79; PULSE 97; RESP 17; TEMP 98.3
--- NOTE | 2022-11-01 11:03 | P.HPOB ---
History of Present Illness H&P Date: 11/01/22 Chief Complaint: The patient is here for her routine gynecologic exam. This is a 27-year-old G0 with an LMP of 10/25/2022. The patient is here to establish with this office. She has never had a pelvic exam. She has been experiencing some genital symptoms for the last 2 weeks. She states about 2 weeks ago she had sexual intercourse 3 days in a row. About 2 days after the last episode of intercourse, she developed vulvar itching, swelling, redness, and irritation. She also noticed a thick yellowish discharge which lasted about 3 days. The discharge has resolved and the swelling has decreased. She still notices some itching and irritation. After she developed the symptoms, she went to urgent care clinic who treated her for a suspected UTI. She also had dysuria at that time which did resolve. She was told that she had genital HSV many years ago when she had genital sores. She has had one additional outbreak and does believe she probably does have HSV. Her recent symptoms did not resemble of the HSV symptoms. She has used withdrawal for control. Review of Systems The patient's weight has been stable over the last year. She denies respiratory, cardiac, or G.I. problems. Past Medical History Past Medical History: GERD/Reflux Additional Past Medical History / Comment(s): MIGRAINES, BACK PAIN. 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 No other history of STDs. History of Any Multi-Drug Resistant Organisms: None Reported Past Surgical History: Cholecystectomy, Hernia Repair Additional Past Surgical History / Comment(s): Hiatal hernia repair. Past Anesthesia/Blood Transfusion Reactions: Motion Sickness Additional Past Anesthesia/Blood Transfusion Reaction / Comment(s): NO ANESTHESIA HX Past Psychological History: Anxiety (She denies current depression.) Smoking Status: Never smoker Past Alcohol Use History: Occasional (0-3 per month.) Additional Past Alcohol Use History / Comment(s): QUIT SMOKING AT 21 YRS OLD, STARTED SMOKING AGE 15, SMOKED 1/2 PPD OR LESS. Past Drug Use History: Marijuana (Daily use.) Additional Drug Use History / Comment(s): DAILY MARIJANA USE. Additional History: She is single and has been with her boyfriend since 2021. They do not live together. 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 - Past Family History Mother Family Medical History: No Reported History Additional Family Medical History / Comment(s): Maternal grandmother had colon cancer. A maternal great grandmother had breast cancer. Father Family Medical History: Hypertension Medications and Allergies Home Medications Medication Instructions Recorded Confirmed Type Ondansetron Odt [Zofran Odt] 4 mg PO Q8HR PRN #30 tab 10/24/22 11/01/22 Rx Famotidine [Pepcid] 20 mg PO BID 11/01/22 11/01/22 History Allergies Allergy/AdvReac Type Severity Reaction Status Date / Time No Known Allergies Allergy Verified 11/01/22 09:52 Exam Vital Signs Temp Pulse Resp BP Pulse Ox 11/01/22 10:02 98.3 F 97 17 119/79 98 Intake and Output 10/31/22 11/01/22 11/01/22 22:59 06:59 14:59 Other: Weight 59.421 kg Height 5 feet 0 inches, weight 131 pounds, BMI 25.6. This is a well-developed well-nourished white female who is alert and oriented times 3 in no acute distress. HEENT: Within normal limits. NECK: Supple without mass or thyromegaly. CHEST AND LUNGS: Clear to auscultation. HEART: Regular rate and rhythm. BREASTS: Are without mass or discharge. AXILLARY EXAM: Negative for adenopathy. BACK: Negative for CVA tenderness. ABDOMEN: Soft, nontender, without palpable masses. PELVIC EXAM: External genitalia reveals mild generalized erythema without focal lesions. There is no ulcerations or excoriation. Cervix and vagina appear normal. There is a small amount of discharge in the back of the vagina which is mucousy and whitish in color. There is no evidence of prolapse. The uterus is slightly retroverted, nongravid size and nontender. There is no cervical motion tenderness. There are no palpable adnexal masses or tenderness. RECTAL EXAM: Deferred. EXTREMITIES: Nontender. IMPRESSION: 1. 27-year-old female with mild vulvar irritation on exam was otherwise unremarkable gynecologic exam. 2. She uses withdrawal for control and is declining anything else at this time. 3. History of vaginal discharge with vulvar pruritus, swelling and redness with very mild vulvar symptoms at this time. Differential diagnosis will include resolving Aury vaginitis, bacterial vaginosis, trichomonas, GC, and chlamydia as well as physiologic discharge. PLAN: 1. Pap smear cotest was performed. This is her first. 2. Self breast awareness was discussed with the patient. We have also discussed symptoms associated with inflammatory breast cancer. 3. Affirm vaginitis panel was obtained from the vagina. GC and Chlamydia testing was obtained from the cervix. 4. Kenalog 0.1% cream twice a day as needed for vulvar itching will be sent electronically to [facility] on . A prescription for Valtrex 500 mg by mouth twice a day 3 days will be sent to [facility] pharmacy as well which she can use if she has HSV symptoms. 5. She'll continue taking a multivitamin with folic acid. We discussed other options of control such as oral contraception and condoms. She will call if she decides she would like to proceed with another form of control. She understands that withdrawal can have high failure rates. 6. She was advised to return in one year for her annual well woman exam and as needed.
[2022-11-02 14:16] LABS: C. trachomatis,PCR Negative (Negative)
[2022-11-02 14:33] LABS: N. gonorrhoeae,PCR Negative (Negative)
== END ==
LOC: WWCWWP 09:46
PROVIDERS: ATTEND Obstetrics & Gynecology
DX: A59.9 Trichomoniasis, unspecified (principal); B37.31 Acute candidiasis of vulva and vagina; Z80.3 Family history of malignant neoplasm of breast; K21.9 Gastro-esophageal reflux disease without esophagitis; F17.200 Nicotine dependence, unspecified, uncomplicated; N89.8 Other specified noninflammatory disorders of vagina; Z11.3 Encounter for screening for infections with a predominantly sexual mode of transmission; L29.2 Pruritus vulvae; Z01.411 Encounter for gynecological examination (general) (routine) with abnormal findings
CPT/HCPCS: 87480; 87491; 87510; 87591; 87660

== ENCOUNTER 2022-11-23 08:46 | Emergency (ER) | payer OTHER ==
[2022-11-23] MEDS ORDERED: SODIUM CHLORIDE 0.9% 1,000 ML IV STA ×2 (09:45→11:24)
[2022-11-23] MEDS ORDERED: ONDANSETRON 4 MG/2 ML VIAL IVP STA (09:45)
[2022-11-23] MEDS ORDERED: FAMOTIDINE 20 MG/2 ML VIAL IV STA (09:45)
--- NOTE | 2022-11-23 10:29 | ED ---
Abdominal Pain HPI - General Chief Complaint: Abdominal Pain Stated Complaint: Vomiting with Abd Pain Time Seen by Provider: 11/23/22 09:29 Source: patient, RN notes reviewed Mode of arrival: ambulatory Limitations: no limitations - History of Present Illness Initial Comments: Patient is a 27-year-old female presenting emergency room with complaints of nausea, vomiting, and generalized abdominal pain ongoing since without any improvement in symptoms and difficulty keeping fluids down. Known history of cyclic vomiting and chronic abdominal pain with previous workups. Most recently seen in October and this emergency room. She denies any other complaints or concerns including any chest pain, shortness of breath, dysuria, hematuria, headache, dizziness, fevers or chills. in addition to her abdominal pain and cyclic nausea and vomiting history she has past medical history significant for migraines, chronic back pain, and GERD. - Related Data Home Medications Medication Instructions Recorded Confirmed Famotidine [Pepcid] 20 mg PO BID 11/01/22 11/01/22 Previous Rx's Medication Instructions Recorded Ondansetron Odt [Zofran Odt] 4 mg PO Q8HR PRN #30 tab 10/24/22 Triamcinolone 0.1% Cream [Kenalog 1 applicatio TOPICAL BID PRN #30 gm 11/01/22 0.1% Cream] valACYclovir HCL [Valtrex] 500 mg PO BID 3 Days #6 tab 11/01/22 Fluconazole [Diflucan] 150 mg PO DIRECTED #2 tab 11/05/22 Allergies Allergy/AdvReac Type Severity Reaction Status Date / Time No Known Allergies Allergy Verified 11/23/22 09:15 Review of Systems ROS Statement: Those systems with pertinent positive or pertinent negative responses have been documented in the HPI. ROS Other: All systems not noted in ROS Statement are negative. Past Medical History Past Medical History: GERD/Reflux Additional Past Medical History / Comment(s): MIGRAINES, BACK PAIN. 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 No other history of STDs. History of Any Multi-Drug Resistant Organisms: None Reported Past Surgical History: Cholecystectomy, Hernia Repair Additional Past Surgical History / Comment(s): Hiatal hernia repair. Past Anesthesia/Blood Transfusion Reactions: Motion Sickness Additional Past Anesthesia/Blood Transfusion Reaction / Comment(s): NO ANESTHESIA HX Past Psychological History: Anxiety Smoking Status: Never smoker Past Alcohol Use History: Occasional Past Drug Use History: Marijuana - Past Family History Mother Family Medical History: No Reported History Additional Family Medical History / Comment(s): Maternal grandmother had colon cancer. A maternal great grandmother had breast cancer. Father Family Medical History: Hypertension General Exam Limitations: no limitations General appearance: alert, in no apparent distress Head exam: Present: atraumatic, normocephalic, normal inspection Eye exam: Present: normal appearance, PERRL, EOMI. Absent: scleral icterus, conjunctival injection, periorbital swelling ENT exam: Present: normal exam, mucous membranes moist Neck exam: Present: normal inspection, full ROM Respiratory exam: Present: normal lung sounds bilaterally. Absent: respiratory distress, wheezes, rales, rhonchi, stridor Cardiovascular Exam: Present: regular rate, normal rhythm, normal heart sounds. Absent: systolic murmur, diastolic murmur, rubs, gallop, clicks GI/Abdominal exam: Present: soft, tenderness (generalized with palpation tenderness no increased tenderness), normal bowel sounds. Absent: distended, guarding, rebound, rigid Rectal exam: Present: deferred Extremities exam: Present: normal inspection. Absent: pedal edema, joint swelling Back exam: Present: normal inspection Neurological exam: Present: alert, oriented X3, CN II-XII intact Psychiatric exam: Present: normal affect, normal mood Skin exam: Present: warm, dry, intact, normal color. Absent: rash Course Vital Signs 11/23/22 11/23/22 11/23/22 09:13 11:01 13:02 Temperature 98.5 F 98.1 F Pulse Rate 109 H 83 90 Respiratory 18 18 16 Rate Blood Pressure 120/73 101/55 106/61 O2 Sat by Pulse 99 100 97 Oximetry Medical Decision Making - Medical Decision Making Was pt. sent in by a medical professional or institution (, PA, BRIDGE MAINTENANCE WORKER, urgent care, hospital, or assisted...) When possible be specific @ -No Did you speak to anyone other than the patient for history (EMS, parent, family, police, friend...)? What history was obtained from this source @ -No Did you review nursing and triage notes (agree or disagree)? Why? @ -I reviewed and agree with nursing and triage notes Were old charts reviewed (outside hosp., previous admission, EMS record, old EKG, old radiological studies, urgent care reports/EKG's, assisted records)? Report findings @ -No old charts were reviewed Differential Diagnosis (chest pain, altered mental status, abdominal pain women, abdominal pain men, vaginal bleeding, weakness, fever, dyspnea, syncope, headache, dizziness, GI bleed, back pain, seizure, CVA, palpatations, mental health, musculoskeletal)? @ -Differential Abdominal Pain Women: Appendicitis, Cholecystitis, diverticulosis, ischemic bowel, pancreatitis, hepatitis, UTI, gastroenteritis, AAA, incarcerated hernia, bowel obstruction, constipation, inflammatory bowel, hepatitis, peptic ulcer disease, splenic infarction, perforated viscus, vulvitis, ovarian torsion, PID, kidney stone, placenta abruption, this is not meant to be an all-inclusive list EKG interpreted by me (3pts min.). @ -None done X-rays interpreted by me (1pt min.). @ -None done CT interpreted by me (1pt min.). @ -None done U/S interpreted by me (1pt. min.). @ -None done What testing was considered but not performed or refused? (CT, X-rays, U/S, labs)? Why? @ -Abdominal imaging considered but deferred due to recurrent chronic symptoms previously worked up and unchanged from baseline. What meds were considered but not given or refused? Why? @ -None Did you discuss the management of the patient with other professionals (professionals i.e. , PA, BRIDGE MAINTENANCE WORKER, lab, RT, psych nurse, social and human services assistant, newscast producer, teacher, corporate development officer, counseling case manager)? Give summary @ -No Was smoking cessation discussed for >3mins.? @ -No Was critical care preformed (if so, how long)? @ -No Were there social determinants of health that impacted care today? How? (Homelessness, low income, unemployed, alcoholism, drug addiction, transportation, low edu. Level, literacy, decrease access to med. care, halfway, rehab)? @ -No Was there de-escalation of care discussed even if they declined (Discuss DNR or withdrawal of care, Hospice)? DNR status @ -No What co-morbidities impacted this encounter? (DM, HTN, Smoking, COPD, CAD, Cancer, CVA, ARF, Chemo, Hep., AIDS, mental health diagnosis, sleep apnea, morbid obesity)? @ -None Was patient admitted / discharged? Hospital course, mention meds given and route, prescriptions, significant lab abnormalities, going to OR and other pertinent info. @ -27-year-old female presenting emergency room with complaints of nausea, vomiting, and generalized abdominal pain ongoing since without any improvement in symptoms and difficulty keeping fluids down. Known history of cyclic vomiting and chronic abdominal pain with previous workups. Most recently seen in October and this emergency room. Will obtain urine drug screen, urinalysis and qualitative urine study will give 1 L fluid bolus Zofran and Pepcid and monitor response. Urinalysis revealed 4+ ketones, negative for . No leukocyte Estrace rare bacteria with contamination is calm is epithelial cells noted. Will give additional fluid bolus in the setting of 4+ ketones. Nausea returned after medication will give doperidol. No further episodes of nausea and vomiting with improved symptoms after second liter of fluid bolus and droperidol. No indication for further medication administration, laboratory studies ordered any diagnostic imaging. Patient already with prescription for Pepcid, Zofran and established with GI. Encouraged continued use of her anti-emetics along with Pepcid and follow-up with her [facility] care provider. Encouraged sensation of marijuana usage due to history of cyclic vomiting. Questions and concerns answered. Return parameters the emergency room discussed. Will discharge home in stable condition on with continued symptomatic management of nausea vomiting and abdominal pain. Undiagnosed new problem with uncertain prognosis? @ -No Drug Therapy requiring intensive monitoring for toxicity (Heparin, Nitro, Insulin, Cardizem)? @ -No Were any procedures done? @ -No Diagnosis/symptom? @ -Abdominal pain Acute, or Chronic, or Acute on Chronic? @ -Acute on chronic Uncomplicated (without systemic symptoms) or Complicated (systemic symptoms)? @ -Uncomplicated Side effects of treatment? @ -No Exacerbation, Progression, or Severe Exacerbation? @ -No Poses a threat to life or bodily function? How? (Chest pain, [place], [place], pneumonia, PE, COPD, DKA, ARF, appy, cholecystitis, CVA, Diverticulitis, Homicidal, Suicidal, threat to staff... and all critical care pts) @ -No Diagnosis/symptom? @ -Nausea and vomiting Acute, or Chronic, or Acute on Chronic? @ -Acute Uncomplicated (without systemic symptoms) or Complicated (systemic symptoms)? @ -Uncomplicated Side effects of treatment? @ -none Exacerbation, Progression, or Severe Exacerbation] @ -no Poses a threat to life or bodily function? @ -no Case discussed with Dr. Chao. - Lab Data Lab Results 11/23/22 11/23/22 Range/Units 11:01 11:01 Urine Color Yellow Urine Appearance Clear (Clear) Urine pH 7.0 (5.0-8.0) Ur Specific [place] 1.028 (1.001-1.035) Urine Protein 1+ H (Negative) Urine Glucose (UA) Trace H (Negative) Urine Ketones 4+ H (Negative) Urine Blood Trace H (Negative) Urine Nitrite Negative (Negative) Urine Bilirubin Negative (Negative) Urine Urobilinogen <2.0 (<2.0) mg/dL Ur Leukocyte Esterase Negative (Negative) Urine RBC 1 (0-5) /hpf Urine WBC 1 (0-5) /hpf Ur Squamous Epith Cells 5 H (0-4) /hpf Urine Bacteria Rare H (None) /hpf Hyaline Casts 1 (0-2) /lpf Urine Mucus Moderate H (None) /hpf Urine HCG, Qual Not Detected (Not Detectd) Disposition Clinical Impression: Intractable nausea and vomiting, Abdominal pain Disposition: HOME SELF-CARE Condition: Stable Instructions (If sedation given, give patient instructions): Acute Nausea and Vomiting (ED), Abdominal Pain (ED) Additional Instructions: Utilize your already prescribed Zofran and Pepcid prescriptions for nausea and GI upset. Stay well-hydrated. Please follow-up with your primary care provider. Please return to the Emergency Department if symptoms worsen or any other concerns. Is patient prescribed a controlled substance at d/c from ED?: No Referrals: Terry Rivera MD [Primary Care Provider] - 1-2 days Time of Disposition: 12:50
[2022-11-23] MEDS ORDERED: droPERidol 5 MG/2 ML VIAL IVP ONE (11:10)
[2022-11-23 11:12] LABS: Appearance,Urine Clear (Clear); Bacteria,Urine Rare /hpf; Bilirubin,Urine Negative (Negative); Blood,Urine Trace (Negative); Glucose,Urine (UA) Trace (Negative); Hyaline Casts,Urine 1 /lpf (0-2); Ketones,Urine 4+ (Negative); Leukocyte Esterase,Urine Negative (Negative); Mucus,Urine Moderate /hpf; Nitrite,Urine Negative (Negative); Protein,Urine 1+ (Negative); RBC,Urine 1 /hpf (0-5); Specific Gravity,Urine 1.028 (1.001-1.035); Squamous Epithelial Cell,Urine 5 /hpf (0-4); Urobilinogen,Urine <2.0 mg/dL (<2.0); WBC,Urine 1 /hpf (0-5)
[2022-11-23 11:20] LABS: Color,Urine Yellow
[2022-11-23 13:05] VITALS: BP 106/61; PULSE 90; RESP 16; TEMP 98.1
[2022-11-23 21:30] LABS: Urine Alcohol Negative (Negative); Urine Barbiturate Negative (Negative); Urine Cocaine Negative (Negative); Urine Methadone Negative (Negative); Urine Opiates Negative (Negative); Urine Phencyclidine Negative (Negative)
== END 2022-11-23 13:05 | disposition home or self-care (01) ==
LOC: EC 08:46
DX: R10.84 Generalized abdominal pain (principal); R11.2 Nausea with vomiting, unspecified; K21.9 Gastro-esophageal reflux disease without esophagitis; F12.90 Cannabis use, unspecified, uncomplicated; Z90.49 Acquired absence of other specified parts of digestive tract; Z79.899 Other long term (current) drug therapy
CPT/HCPCS: 81001; 81025; 80306; 99284; 96374; 96375 ×2; 96361 ×2; J2405; J3490; J1790

== ENCOUNTER 2022-12-16 12:16 | Emergency (ER) | payer OTHER ==
[2022-12-16] MEDS ORDERED: droPERidol 5 MG/2 ML VIAL IVP ONE (13:54)
[2022-12-16] MEDS ORDERED: SODIUM CHLORIDE 0.9% 1,000 ML IV STA ×2 (13:54→17:32)
[2022-12-16] MEDS ORDERED: FAMOTIDINE 20 MG/2 ML VIAL IV STA (13:56)
--- NOTE | 2022-12-16 13:57 | ED ---
Abdominal Pain HPI - General Chief Complaint: Abdominal Pain Stated Complaint: vomiting Time Seen by Provider: 12/16/22 13:49 Source: patient Mode of arrival: ambulatory Limitations: no limitations - History of Present Illness Initial Comments: 27-year-old female with past medical history significant for cyclic vomiting presents to ED with a chief complaint of nausea or vomiting. Patient reports for the past 1-2 days has had nausea, vomiting, abdominal pain. Patient well- known to our department due to history of this. Patient states that her sympt oms are unchanged from usual however states that her whole meds are not helping improve her symptoms. Patient seen here previously last month for the same area at that time was advised to follow up with GI however patient reports has not followed up with GI unit. Denies chest pain or shortness of breath. Denies urinary complaints. No changes in bowel habits. No other complaints. - Related Data Home Medications Medication Instructions Recorded Confirmed Famotidine [Pepcid] 20 mg PO BID 11/01/22 11/01/22 Previous Rx's Medication Instructions Recorded Ondansetron Odt [Zofran Odt] 4 mg PO Q8HR PRN #30 tab 10/24/22 Triamcinolone 0.1% Cream [Kenalog 1 applicatio TOPICAL BID PRN #30 gm 11/01/22 0.1% Cream] valACYclovir HCL [Valtrex] 500 mg PO BID 3 Days #6 tab 11/01/22 Fluconazole [Diflucan] 150 mg PO DIRECTED #2 tab 11/05/22 Allergies Allergy/AdvReac Type Severity Reaction Status Date / Time No Known Allergies Allergy Verified 12/16/22 12:37 Review of Systems ROS Statement: Those systems with pertinent positive or pertinent negative responses have been documented in the HPI. ROS Other: All systems not noted in ROS Statement are negative. Past Medical History Past Medical History: GERD/Reflux Additional Past Medical History / Comment(s): MIGRAINES, BACK PAIN. 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 No other history of STDs. History of Any Multi-Drug Resistant Organisms: None Reported Past Surgical History: Cholecystectomy, Hernia Repair Additional Past Surgical History / Comment(s): Hiatal hernia repair. Past Anesthesia/Blood Transfusion Reactions: Motion Sickness Additional Past Anesthesia/Blood Transfusion Reaction / Comment(s): NO ANESTHESIA HX Past Psychological History: Anxiety Smoking Status: Never smoker Past Alcohol Use History: Occasional Past Drug Use History: Marijuana - Past Family History Mother Family Medical History: No Reported History Additional Family Medical History / Comment(s): Maternal grandmother had colon cancer. A maternal great grandmother had breast cancer. Father Family Medical History: Hypertension General Exam Limitations: no limitations General appearance: alert, in no apparent distress ENT exam: Present: mucous membranes moist Neck exam: Present: normal inspection Respiratory exam: Present: normal lung sounds bilaterally Cardiovascular Exam: Present: regular rate, normal rhythm GI/Abdominal exam: Present: soft (Diffuse tenderness to palpation. No rebound guarding or rigidity. No CVA to percussion bilaterally.) Extremities exam: Present: normal inspection Neurological exam: Present: alert, oriented X3 Skin exam: Present: warm, dry Course Vital Signs 12/16/22 12:34 Temperature 98.0 F Pulse Rate 62 Respiratory 20 Rate Blood Pressure 147/87 O2 Sat by Pulse 100 Oximetry Medical Decision Making - Medical Decision Making Was pt. sent in by a medical professional or institution (, PA, CEO AND CO FOUNDER, urgent care, hospital, or senior living...) When possible be specific @ -No Did you speak to anyone other than the patient for history (EMS, parent, family, police, friend...)? What history was obtained from this source @ -No Did you review nursing and triage notes (agree or disagree)? Why? @ -I reviewed and agree with nursing and triage notes Were old charts reviewed (outside hosp., previous admission, EMS record, old EKG, old radiological studies, urgent care reports/EKG's, senior living records)? Report findings @ -No old charts were reviewed Differential Diagnosis (chest pain, altered mental status, abdominal pain women, abdominal pain men, vaginal bleeding, weakness, fever, dyspnea, syncope, headache, dizziness, GI bleed, back pain, seizure, CVA, palpatations, mental health, musculoskeletal)? @ -Differential Abdominal Pain Women: Appendicitis, Cholecystitis, diverticulosis, ischemic bowel, pancreatitis, hepatitis, UTI, gastroenteritis, AAA, incarcerated hernia, bowel obstruction, constipation, inflammatory bowel, hepatitis, peptic ulcer disease, splenic infarction, perforated viscus, vulvitis, ovarian torsion, PID, kidney stone, placenta abruption, this is not meant to be an all-inclusive list EKG interpreted by me (3pts min.). @ -None X-rays interpreted by me (1pt min.). @ -None done CT interpreted by me (1pt min.). @ -None done U/S interpreted by me (1pt. min.). @ -None done What testing was considered but not performed or refused? (CT, X-rays, U/S, labs)? Why? @ -Imaging studies of the abdomen were considered, at this time patient reports current symptoms are consistent with history of cyclic vomiting. Denies no worsening of her usual symptoms and also deferred further testing at this time. What meds were considered but not given or refused? Why? @ -None Did you discuss the management of the patient with other professionals (professionals i.e. DrSimi, PA, CEO AND CO FOUNDER, lab, RT, psych nurse, social insurance analyst, tie binder, teacher, forest officer, case management assistant)? Give summary @ -No Was smoking cessation discussed for >3mins.? @ -No Was critical care preformed (if so, how long)? @ -No Were there social determinants of health that impacted care today? How? (Homelessness, low income, unemployed, alcoholism, drug addiction, transportation, low edu. Level, literacy, decrease access to med. care, penitentiary, rehab)? @ -No Was there de-escalation of care discussed even if they declined (Discuss DNR or withdrawal of care, Hospice)? DNR status @ -No What co-morbidities impacted this encounter? (DM, HTN, Smoking, COPD, CAD, Cancer, CVA, ARF, Chemo, Hep., AIDS, mental health diagnosis, sleep apnea, morbid obesity)? @ -None Was patient admitted / discharged? Hospital course, mention meds given and route, prescriptions, significant lab abnormalities, going to OR and other pertinent info. @ -Discharge 27-year-old female with a history of cyclic vomiting presented to the ED with abdominal pain, nausea and vomiting consistent with history. Laboratory studies largely unremarkable. Patient had improvement of symptoms here in the ED. Patient will be discharged home. Discharged home in stable condition. Discussed return precautions with patient who verbalizes agreement. Undiagnosed new problem with uncertain prognosis? @ -No Drug Therapy requiring intensive monitoring for toxicity (Heparin, Nitro, Insulin, Cardizem)? @ -No Were any procedures done? @ -No Diagnosis/symptom? @ -Nausea and vomiting Acute, or Chronic, or Acute on Chronic? @ -Acute on chronic Uncomplicated (without systemic symptoms) or Complicated (systemic symptoms)? @ -Uncomplicated Side effects of treatment? @ -No Exacerbation, Progression, or Severe Exacerbation? @ -No Poses a threat to life or bodily function? How? (Chest pain, [place], [place], pneumonia, PE, COPD, DKA, ARF, appy, cholecystitis, CVA, Diverticulitis, Homicidal, Suicidal, threat to staff... and all critical care pts) @ -No - Lab Data Result diagrams: 12/16/22 14:14 12/16/22 14:14 Lab Results 12/16/22 12/16/22 Range/Units 14:14 14:14 WBC 9.7 (3.8-10.6) k/uL RBC 4.65 (3.80-5.40) m/uL Hgb 13.8 (11.4-16.0) gm/dL Hct 40.5 (34.0-46.0) % MCV 87.1 (80.0-100.0) fL MCH 29.7 (25.0-35.0) pg MCHC 34.0 (31.0-37.0) g/dL RDW 12.5 (11.5-15.5) % Plt Count 225 (150-450) k/uL MPV 8.7 Neutrophils % 91 % Lymphocytes % 6 % Monocytes % 3 % Eosinophils % 0 % Basophils % 0 % Neutrophils # 8.8 H (1.3-7.7) k/uL Lymphocytes # 0.6 L (1.0-4.8) k/uL Monocytes # 0.3 (0-1.0) k/uL Eosinophils # 0.0 (0-0.7) k/uL Basophils # 0.0 (0-0.2) k/uL Sodium 138 (137-145) mmol/L Potassium 3.9 (3.5-5.1) mmol/L Chloride 105 (98-107) mmol/L Carbon Dioxide 21 L (22-30) mmol/L Anion Gap 12 mmol/L BUN 10 (7-17) mg/dL Creatinine 0.52 (0.52-1.04) mg/dL Est GFR (CKD-EPI)AfAm >90 (>60 ml/min/1.73 sqM) Est GFR (CKD-EPI)NonAf >90 (>60 ml/min/1.73 sqM) Glucose 150 H (74-99) mg/dL Calcium 10.1 (8.4-10.2) mg/dL Total Bilirubin 0.7 (0.2-1.3) mg/dL AST 26 (14-36) U/L ALT 30 (4-34) U/L Alkaline Phosphatase 69 (38-126) U/L Total Protein 8.1 (6.3-8.2) g/dL Albumin 4.9 (3.5-5.0) g/dL Amylase 130 H (30-110) U/L Lipase 147 (23-300) U/L Disposition Clinical Impression: Nausea and vomiting Disposition: HOME SELF-CARE Condition: Good Instructions (If sedation given, give patient instructions): Acute Nausea and Vomiting (ED) Additional Instructions: Please return to the Emergency Department if symptoms worsen or any other concerns. Please follow-up with gastroenterology. Is patient prescribed a controlled substance at d/c from ED?: No Referrals: Terry Rivera MD [Primary Care Provider] - 1-2 days Time of Disposition: 17:46
[2022-12-16 14:36] LABS: Basophils % (A) 0 %; Eosinophils % (A) 0 %; HCT 40.5 % (34.0-46.0); HGB 13.8 gm/dL (11.4-16.0); Lymphocytes # (A) 0.6 k/uL (1.0-4.8); Lymphocytes % (A) 6 %; MCH 29.7 pg (25.0-35.0); MCV 87.1 fL (80.0-100.0); Mean Platelet Volume 8.7; Monocytes # (A) 0.3 k/uL (0-1.0); Monocytes % (A) 3 %; Neutrophils # (A) 8.8 k/uL (1.3-7.7); Neutrophils % (A) 91 %; Platelet Count 225 k/uL (150-450); RBC 4.65 m/uL (3.80-5.40); RDW 12.5 % (11.5-15.5); WBC 9.7 k/uL (3.8-10.6)
[2022-12-16 14:43] LABS: ALT 30 U/L (4-34); AST 26 U/L (14-36); African American GFR (CKD) >90 (>60 ml/min/1.73 sqM); Albumin 4.9 g/dL (3.5-5.0); Alkaline Phosphatase 69 U/L (38-126); Amylase 130 U/L (30-110); Anion Gap 12 mmol/L; Blood Urea Nitrogen 10 mg/dL (7-17); Calcium 10.1 mg/dL (8.4-10.2); Carbon Dioxide 21 mmol/L (22-30); Chloride 105 mmol/L (98-107); Glucose 150 mg/dL (74-99); Lipase 147 U/L (23-300); Non-African American GFR(CKD) >90 (>60 ml/min/1.73 sqM); Potassium 3.9 mmol/L (3.5-5.1); Sodium 138 mmol/L (137-145); Total Bilirubin 0.7 mg/dL (0.2-1.3); Total Protein 8.1 g/dL (6.3-8.2)
[2022-12-16 15:30] VITALS: TEMP 98
[2022-12-16] MEDS ORDERED: ONDANSETRON 4 MG/2 ML VIAL IVP STA (15:45)
[2022-12-16] MEDS ORDERED: METOCLOPRAMIDE 5 MG/ML 2 ML VIAL IVP STA (17:32)
[2022-12-16 17:52] VITALS: RESP 18
[2022-12-16 18:46] VITALS: BP 139/63; PULSE 74
== END 2022-12-16 18:45 | disposition home or self-care (01) ==
LOC: EC 12:16
DX: R11.2 Nausea with vomiting, unspecified (principal); K21.9 Gastro-esophageal reflux disease without esophagitis; F12.90 Cannabis use, unspecified, uncomplicated; Z86.59 Personal history of other mental and behavioral disorders
CPT/HCPCS: 36415; 80053; 82150; 83690; 85025; 99284; 96374; 96375 ×3; 96361 ×3; J2765; J2405; J3490; J1790

== ENCOUNTER 2023-01-13 15:17 | Emergency (ER) | payer OTHER ==
[2023-01-13] MEDS ORDERED: SODIUM CHLORIDE 0.9% 1,000 ML IV STA (15:41)
[2023-01-13] MEDS ORDERED: METOCLOPRAMIDE 5 MG/ML 2 ML VIAL IVP STA (15:41)
--- NOTE | 2023-01-13 15:44 | ED ---
Nausea/Vomiting/Diarrhea HPI - General Chief complaint: Nausea/Vomiting/Diarrhea Stated complaint: throwing up 2 Time Seen by Provider: 01/13/23 15:30 Source: patient Mode of arrival: ambulatory Limitations: no limitations - History of Present Illness Initial comments: This patient is a 27-year-old woman with history of headaches and of recurrent vomiting who presents to have evaluation for same. She states that she started to have the onset of what she is calling one of her typical migraine headaches about 3 days ago. She states that after the headache had been going on for number of hours she started to have associated nausea and vomiting. She states that over the past 2 days she has not really been able to keep much in way of anything down. She also has started to have some diffuse abdominal pain. She states that there has been no change in bowel movements or urination. No fever or chills. MD complaint: nausea, vomiting, abdominal pain Onset/Timin -: days(s) Description of Vomiting: food contents Location: diffuse Radiation: none Severity: moderate Quality: cramping, aching Consistency: constant Improves with: none Worsens with: none Associated Symptoms: headaches - Related Data Previous Rx's Medication Instructions Recorded Ondansetron Odt [Zofran ODT] 4 mg PO Q8HR PRN #10 tab 01/13/23 Allergies Allergy/AdvReac Type Severity Reaction Status Date / Time No Known Allergies Allergy Verified 01/18/23 10:00 Review of Systems ROS Statement: Those systems with pertinent positive or pertinent negative responses have been documented in the HPI. ROS Other: All systems not noted in ROS Statement are negative. Constitutional: Denies: fever, chills, weakness Respiratory: Denies: cough, dyspnea Cardiovascular: Denies: chest pain, palpitations Gastrointestinal: Reports: abdominal pain, nausea, vomiting. Denies: diarrhea, constipation, hematemesis, melena, hematochezia Genitourinary: Denies: dysuria, hematuria Musculoskeletal: Denies: back pain Skin: Denies: rash Neurological: Reports: headache. Denies: weakness, numbness Past Medical History Past Medical History: GERD/Reflux Additional Past Medical History / Comment(s): MIGRAINES, BACK PAIN. 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 No other history of STDs. History of Any Multi-Drug Resistant Organisms: None Reported Past Surgical History: Cholecystectomy, Hernia Repair Additional Past Surgical History / Comment(s): Hiatal hernia repair. Past Anesthesia/Blood Transfusion Reactions: Motion Sickness Additional Past Anesthesia/Blood Transfusion Reaction / Comment(s): NO ANESTHESIA HX Past Psychological History: Anxiety Smoking Status: Never smoker Past Alcohol Use History: Occasional Past Drug Use History: Marijuana - Past Family History Mother Family Medical History: No Reported History Additional Family Medical History / Comment(s): Maternal grandmother had colon cancer. A maternal great grandmother had breast cancer. Father Family Medical History: Hypertension General Exam Limitations: no limitations General appearance: alert, in no apparent distress Head exam: Present: atraumatic, normocephalic Eye exam: Present: normal appearance. Absent: scleral icterus, conjunctival injection Neck exam: Present: normal inspection, full ROM Respiratory exam: Present: normal lung sounds bilaterally. Absent: respiratory distress, wheezes, rales, rhonchi, stridor Cardiovascular Exam: Present: regular rate, normal rhythm, normal heart sounds. Absent: systolic murmur, diastolic murmur, rubs, gallop GI/Abdominal exam: Present: soft. Absent: distended, tenderness, guarding, rebound, rigid, mass Extremities exam: Present: normal inspection, normal capillary refill. Absent: pedal edema, calf tenderness Back exam: Present: normal inspection. Absent: CVA tenderness (R), CVA tenderness (L) Neurological exam: Present: alert Skin exam: Present: warm, dry, intact, normal color. Absent: rash Course Vital Signs 01/13/23 01/13/23 01/13/23 15:23 16:26 17:29 Temperature 97.4 F L 97.7 F 98.4 F Pulse Rate 96 91 65 Respiratory 22 16 16 Rate Blood Pressure 139/86 134/72 112/65 O2 Sat by Pulse 100 98 98 Oximetry 01/13/23 01/13/23 18:43 20:43 Temperature 98.4 F Pulse Rate 67 60 Respiratory 16 18 Rate Blood Pressure 115/59 120/60 O2 Sat by Pulse 98 100 Oximetry Medical Decision Making - Medical Decision Making Was pt. sent in by a medical professional or institution (, PA, CARD STRIPPER, urgent care, hospital, or senior living...) When possible be specific @ -[No] Did you speak to anyone other than the patient for history (EMS, parent, family, police, friend...)? What history was obtained from this source @ -[No] Did you review nursing and triage notes (agree or disagree)? Why? @ -[I reviewed and agree with nursing and triage notes] Were old charts reviewed (outside hosp., previous admission, EMS record, old EKG, old radiological studies, urgent care reports/EKG's, senior living records)? Report findings @ -[No old charts were reviewed] Differential Diagnosis (chest pain, altered mental status, abdominal pain women, abdominal pain men, vaginal bleeding, weakness, fever, dyspnea, syncope, headache, dizziness, GI bleed, back pain, seizure, CVA, palpatations, mental health, musculoskeletal)? @ -[Differential Headache: Migraine, tension, cluster, carbon monoxide, central venous thrombosis, pension karma temporal arteritis, acute closure glaucoma, intercranial hemorrhage, mastoiditis, sinusitis, head injury, this is not meant to be an all-inclusive list. EKG interpreted by me (3pts min.). @ -[ X-rays interpreted by me (1pt min.). @ -[None done] CT interpreted by me (1pt min.). @ -[None done] U/S interpreted by me (1pt. min.). @ -[None done] What testing was considered but not performed or refused? (CT, X-rays, U/S, labs)? Why? @ -[None] What meds were considered but not given or refused? Why? @ -[None] Did you discuss the management of the patient with other professionals (professionals i.e. , PA, CARD STRIPPER, lab, RT, psych nurse, social media project manager, trailer chief, teacher, strike warfare/missile systems officer, binder caser)? Give summary @ -[No] Was smoking cessation discussed for >3mins.? @ -[No] Was critical care preformed (if so, how long)? @ -[No] Were there social determinants of health that impacted care today? How? (Homelessness, low income, unemployed, alcoholism, drug addiction, transportatio n, low edu. Level, literacy, decrease access to med. care, intermediate, rehab)? @ -[No] Was there de-escalation of care discussed even if they declined (Discuss DNR or withdrawal of care, Hospice)? DNR status @ -[No] What co-morbidities impacted this encounter? (DM, HTN, Smoking, COPD, CAD, Cancer, CVA, ARF, Chemo, Hep., AIDS, mental health diagnosis, sleep apnea, morbid obesity)? @ -[None] Was patient admitted / discharged? Hospital course, mention meds given and route, prescriptions, significant lab abnormalities, going to OR and other pertinent info. @ -[Patient is feeling better following medications. Stable to be discharged. Recommended follow-up with neurology to see if there would be better migraine treatment and what she is currently taking. Discussed appropriate follow-up and return parameters. Undiagnosed new problem with uncertain prognosis? @ -[No] Drug Therapy requiring intensive monitoring for toxicity (Heparin, Nitro, Insulin, Cardizem)? @ -[No] Were any procedures done? @ -[No] Diagnosis/symptom? @ -[Acute cephalgia Acute, or Chronic, or Acute on Chronic? @ -[Acute on chronic Uncomplicated (without systemic symptoms) or Complicated (systemic symptoms)? @ -[Uncomplicated Side effects of treatment? @ -[No] Exacerbation, Progression, or Severe Exacerbation? @ -[No] Poses a threat to life or bodily function? How? (Chest pain, [place], [place], pneumonia, PE, COPD, DKA, ARF, appy, cholecystitis, CVA, Diverticulitis, Homicidal, Suicidal, threat to staff... and all critical care pts) @ -[No] - Lab Data Result diagrams: 01/13/23 15:50 01/13/23 15:50 Lab Results 01/13/23 01/13/23 01/13/23 Range/Units 15:50 15:50 15:50 WBC 20.2 H (3.8-10.6) k/uL RBC 5.39 (3.80-5.40) m/uL Hgb 15.7 (11.4-16.0) gm/dL Hct 46.8 H (34.0-46.0) % MCV 87.0 (80.0-100.0) fL MCH 29.2 (25.0-35.0) pg MCHC 33.6 (31.0-37.0) g/dL RDW 12.5 (11.5-15.5) % Plt Count 360 (150-450) k/uL MPV 8.6 Neutrophils % 88 % Lymphocytes % 7 % Monocytes % 3 % Eosinophils % 1 % Basophils % 0 % Neutrophils # 17.8 H (1.3-7.7) k/uL Lymphocytes # 1.3 (1.0-4.8) k/uL Monocytes # 0.7 (0-1.0) k/uL Eosinophils # 0.3 (0-0.7) k/uL Basophils # 0.0 (0-0.2) k/uL Sodium 142 (137-145) mmol/L Potassium 3.5 (3.5-5.1) mmol/L Chloride 98 (98-107) mmol/L Carbon Dioxide 24 (22-30) mmol/L Anion Gap 20 mmol/L BUN 19 H (7-17) mg/dL Creatinine 0.75 (0.52-1.04) mg/dL Est GFR (CKD-EPI)AfAm >90 (>60 ml/min/1.73 sqM) Est GFR (CKD-EPI)NonAf >90 (>60 ml/min/1.73 sqM) Glucose 118 H (74-99) mg/dL Calcium 10.6 H (8.4-10.2) mg/dL Total Bilirubin 0.9 (0.2-1.3) mg/dL AST 29 (14-36) U/L ALT 40 H (4-34) U/L Alkaline Phosphatase 71 (38-126) U/L Total Protein 8.8 H (6.3-8.2) g/dL Albumin 5.7 H (3.5-5.0) g/dL Amylase 81 (30-110) U/L Lipase 45 (23-300) U/L Urine HCG, Qual Not Detected (Not Detectd) Disposition Clinical Impression: Nausea and vomiting, Headache Disposition: HOME SELF-CARE Condition: Good Instructions (If sedation given, give patient instructions): Acute Nausea and Vomiting (ED) Prescriptions: Ondansetron Odt [Zofran ODT] 4 mg PO Q8HR PRN #10 tab PRN Reason: Nausea Is patient prescribed a controlled substance at d/c from ED?: No Referrals: Terry Rivera MD [Primary Care Provider] - 1-2 days
[2023-01-13 16:06] LABS: Basophils % (A) 0 %; Eosinophils # (A) 0.3 k/uL (0-0.7); Eosinophils % (A) 1 %; HCT 46.8 % (34.0-46.0); HGB 15.7 gm/dL (11.4-16.0); Lymphocytes # (A) 1.3 k/uL (1.0-4.8); Lymphocytes % (A) 7 %; MCH 29.2 pg (25.0-35.0); MCHC 33.6 g/dL (31.0-37.0); Mean Platelet Volume 8.6; Monocytes # (A) 0.7 k/uL (0-1.0); Monocytes % (A) 3 %; Neutrophils # (A) 17.8 k/uL (1.3-7.7); Neutrophils % (A) 88 %; Platelet Count 360 k/uL (150-450); RBC 5.39 m/uL (3.80-5.40); RDW 12.5 % (11.5-15.5); WBC 20.2 k/uL (3.8-10.6)
[2023-01-13 16:19] LABS: AST 29 U/L (14-36); African American GFR (CKD) >90 (>60 ml/min/1.73 sqM); Albumin 5.7 g/dL (3.5-5.0); Alkaline Phosphatase 71 U/L (38-126); Amylase 81 U/L (30-110); Anion Gap 20 mmol/L; Blood Urea Nitrogen 19 mg/dL (7-17); Calcium 10.6 mg/dL (8.4-10.2); Carbon Dioxide 24 mmol/L (22-30); Chloride 98 mmol/L (98-107); Glucose 118 mg/dL (74-99); Lipase 45 U/L (23-300); Non-African American GFR(CKD) >90 (>60 ml/min/1.73 sqM); Potassium 3.5 mmol/L (3.5-5.1); Sodium 142 mmol/L (137-145); Total Bilirubin 0.9 mg/dL (0.2-1.3); Total Protein 8.8 g/dL (6.3-8.2)
[2023-01-13 16:36] LABS: ALT 40 U/L (4-34)
[2023-01-13 17:39] VITALS: TEMP 98.4
[2023-01-13] MEDS ORDERED: ONDANSETRON 4 MG/2 ML VIAL IVP STA ×2 (18:08→19:54)
[2023-01-13] MEDS ORDERED: DEXTROSE 5%-0.45% NACL 1,000 ML IV ONE (18:26)
[2023-01-13 20:46] VITALS: BP 120/60; PULSE 60; RESP 18
== END 2023-01-13 20:44 | disposition home or self-care (01) ==
LOC: EC 15:17
DX: R11.2 Nausea with vomiting, unspecified (principal); R51.9 Headache, unspecified; F12.90 Cannabis use, unspecified, uncomplicated; Z86.59 Personal history of other mental and behavioral disorders; Z90.49 Acquired absence of other specified parts of digestive tract
CPT/HCPCS: 36415; 80053; 82150; 83690; 85025; 81025; 99284; 96374; 96375; 96376; 96361 ×5; J2765; J2405

== ENCOUNTER 2023-01-14 07:59 | Emergency (ER) | payer OTHER ==
[2023-01-14] MEDS ORDERED: FAMOTIDINE 20 MG/2 ML VIAL IV STA (08:31)
[2023-01-14] MEDS ORDERED: DICYCLOMINE 10 MG/ML 2 ML AMP IM STA (08:31)
[2023-01-14] MEDS ORDERED: SODIUM CHLORIDE 0.9% 1,000 ML IV STA ×2 (08:31→10:20)
[2023-01-14] MEDS ORDERED: ONDANSETRON 4 MG/2 ML VIAL IVP STA ×2 (08:31→09:26)
--- NOTE | 2023-01-14 08:33 | ED ---
General Adult HPI - General Chief complaint: Abdominal Pain Stated complaint: abdominal pain Time Seen by Provider: 01/14/23 08:07 Source: patient, RN notes reviewed Mode of arrival: ambulatory Limitations: no limitations - History of Present Illness Initial comments: Patient is a pleasant 19-year-old female presenting to the emergency Department with abdominal pain. Patient states she has chronic abdominal pain. Patient states she has symptoms similar to this approximately once per month, for years. Patient states she was here yesterday. A harvey has had nausea and vomited twice last night. Patient still has nausea. Patient states discomfort is diffuse. No fever. - Related Data Previous Rx's Medication Instructions Recorded Ondansetron Odt [Zofran ODT] 4 mg PO Q8HR PRN #10 tab 01/13/23 Allergies Allergy/AdvReac Type Severity Reaction Status Date / Time No Known Allergies Allergy Verified 01/14/23 08:04 Review of Systems ROS Statement: Those systems with pertinent positive or pertinent negative responses have been documented in the HPI. ROS Other: All systems not noted in ROS Statement are negative. Constitutional: Denies: fever Eyes: Denies: eye pain ENT: Denies: ear pain Respiratory: Denies: cough Cardiovascular: Denies: chest pain Endocrine: Denies: fatigue Gastrointestinal: Reports: as per HPI, abdominal pain, nausea, vomiting Genitourinary: Denies: dysuria Musculoskeletal: Denies: back pain Skin: Denies: rash Neurological: Denies: weakness Past Medical History Past Medical History: GERD/Reflux Additional Past Medical History / Comment(s): MIGRAINES, BACK PAIN. 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 No other history of STDs. History of Any Multi-Drug Resistant Organisms: None Reported Past Surgical History: Cholecystectomy, Hernia Repair Additional Past Surgical History / Comment(s): Hiatal hernia repair. Past Anesthesia/Blood Transfusion Reactions: Motion Sickness Additional Past Anesthesia/Blood Transfusion Reaction / Comment(s): NO ANESTHESIA HX Past Psychological History: Anxiety Smoking Status: Never smoker Past Alcohol Use History: Occasional Past Drug Use History: Marijuana - Past Family History Mother Family Medical History: No Reported History Additional Family Medical History / Comment(s): Maternal grandmother had colon cancer. A maternal great grandmother had breast cancer. Father Family Medical History: Hypertension General Exam Limitations: no limitations General appearance: alert, in no apparent distress Head exam: Present: normocephalic Eye exam: Present: normal appearance Neck exam: Present: normal inspection Respiratory exam: Present: normal lung sounds bilaterally Cardiovascular Exam: Present: regular rate, normal rhythm Expanded Peripheral pulses: 2+: Dorsalis Pedis (R), Dorsalis Pedis (L) GI/Abdominal exam: Present: soft, normal bowel sounds. Absent: distended, tenderness, guarding, rebound, rigid, pulsatile mass Extremities exam: Present: normal inspection Back exam: Present: normal inspection Neurological exam: Present: alert Psychiatric exam: Present: normal affect, normal mood Skin exam: Present: normal color Course Vital Signs 01/14/23 01/14/23 01/14/23 08:02 09:04 10:30 Temperature 98.2 F 97.4 F L 98.4 F Pulse Rate 65 65 63 Respiratory 20 16 16 Rate Blood Pressure 133/85 147/82 143/80 O2 Sat by Pulse 100 100 99 Oximetry Medical Decision Making - Medical Decision Making Was pt. sent in by a medical professional or institution (, PA, TIE BUCKER, urgent care, hospital, or [facility]...) When possible be specific @ -No Did you speak to anyone other than the patient for history (EMS, parent, family, police, friend...)? What history was obtained from this source @ -No Did you review nursing and triage notes (agree or disagree)? Why? @ -I reviewed and agree with nursing and triage notes Were old charts reviewed (outside hosp., previous admission, EMS record, old EKG, old radiological studies, urgent care reports/EKG's, [facility] records)? Report findings @ -Previous admission labs reviewed. Differential Diagnosis (chest pain, altered mental status, abdominal pain women, abdominal pain men, vaginal bleeding, weakness, fever, dyspnea, syncope, headache, dizziness, GI bleed, back pain, seizure, CVA, palpatations, mental health, musculoskeletal)? @ -Differential Abdominal Pain Women: Appendicitis, Cholecystitis, diverticulosis, ischemic bowel, pancreatitis, hepatitis, UTI, gastroenteritis, AAA, incarcerated hernia, bowel obstruction, constipation, inflammatory bowel, hepatitis, peptic ulcer disease, splenic infarction, perforated viscus, vulvitis, ovarian torsion, PID, kidney stone, placenta abruption, this is not meant to be an all-inclusive list EKG interpreted by me (3pts min.). @ -As above X-rays interpreted by me (1pt min.). @ -Abdominal x-ray shows no acute process. CT interpreted by me (1pt min.). @ -None done U/S interpreted by me (1pt. min.). @ -None done What testing was considered but not performed or refused? (CT, X-rays, U/S, labs)? Why? @ -None What meds were considered but not given or refused? Why? @ -None Did you discuss the management of the patient with other professionals (professionals i.e. , PA, TIE BUCKER, lab, RT, psych nurse, oncology social worker, steward/stewardess lounge, teacher, custom protection officer, case reviewer)? Give summary @ -No Was smoking cessation discussed for >3mins.? @ -No Was critical care preformed (if so, how long)? @ -No Were there social determinants of health that impacted care today? How? (Homelessness, low income, unemployed, alcoholism, drug addiction, transportation, low edu. Level, literacy, decrease access to med. care, [facility], rehab)? @ -No Was there de-escalation of care discussed even if they declined (Discuss DNR or withdrawal of care, Hospice)? DNR status @ -No What co-morbidities impacted this encounter? (DM, HTN, Smoking, COPD, CAD, Cancer, CVA, ARF, Chemo, Hep., AIDS, mental health diagnosis, sleep apnea, morbid obesity)? @ -None Was patient admitted / discharged? Hospital course, mention meds given and route , prescriptions, significant lab abnormalities, going to OR and other pertinent info. @ -Patient reevaluated and resting comfortably in bed. Patient states symptoms have improved and is allowing her to rest. Patient still has nausea. Patient receptive to more medication prior to discharge. Patient updated on results and need for follow-up. Patient advised to discontinue marijuana use. Undiagnosed new problem with uncertain prognosis? @ -No Drug Therapy requiring intensive monitoring for toxicity (Heparin, Nitro, Insulin, Cardizem)? @ -No Were any procedures done? @ -No Diagnosis/symptom? @ -Nausea vomiting Acute, or Chronic, or Acute on Chronic? @ -Acute on chronic Uncomplicated (without systemic symptoms) or Complicated (systemic symptoms)? @ -default Side effects of treatment? @ -No Exacerbation, Progression, or Severe Exacerbation? @ -No Poses a threat to life or bodily function? How? (Chest pain, [place], [place], pneumonia, PE, COPD, DKA, ARF, appy, cholecystitis, CVA, Diverticulitis, Homicidal, Suicidal, threat to staff... and all critical care pts) @ -No - Lab Data Result diagrams: 01/14/23 08:35 01/14/23 08:35 Lab Results 01/14/23 01/14/23 01/14/23 Range/Units 08:35 08:35 08:35 WBC 13.2 H (3.8-10.6) k/uL RBC 4.82 (3.80-5.40) m/uL Hgb 14.3 (11.4-16.0) gm/dL Hct 42.2 (34.0-46.0) % MCV 87.6 (80.0-100.0) fL MCH 29.8 (25.0-35.0) pg MCHC 34.0 (31.0-37.0) g/dL RDW 12.4 (11.5-15.5) % Plt Count 275 (150-450) k/uL MPV 8.5 Neutrophils % 81 % Lymphocytes % 14 % Monocytes % 4 % Eosinophils % 0 % Basophils % 0 % Neutrophils # 10.6 H (1.3-7.7) k/uL Lymphocytes # 1.8 (1.0-4.8) k/uL Monocytes # 0.6 (0-1.0) k/uL Eosinophils # 0.0 (0-0.7) k/uL Basophils # 0.0 (0-0.2) k/uL Sodium 139 (137-145) mmol/L Potassium 3.6 (3.5-5.1) mmol/L Chloride 103 (98-107) mmol/L Carbon Dioxide 21 L (22-30) mmol/L Anion Gap 15 mmol/L BUN 12 (7-17) mg/dL Creatinine 0.66 (0.52-1.04) mg/dL Est GFR (CKD-EPI)AfAm >90 (>60 ml/min/1.73 sqM) Est GFR (CKD-EPI)NonAf >90 (>60 ml/min/1.73 sqM) Glucose 102 H (74-99) mg/dL Calcium 9.8 (8.4-10.2) mg/dL Total Bilirubin 1.0 (0.2-1.3) mg/dL AST 22 (14-36) U/L ALT 21 (4-34) U/L Alkaline Phosphatase 64 (38-126) U/L Total Protein 7.7 (6.3-8.2) g/dL Albumin 4.8 (3.5-5.0) g/dL Amylase 128 H (30-110) U/L Lipase 336 H (23-300) U/L HCG, Quant <2.4 mIU/mL Urine Color Yellow Urine Appearance Cloudy H (Clear) Urine pH 6.0 (5.0-8.0) Ur Specific [place] 1.035 (1.001-1.035) Urine Protein 1+ H (Negative) Urine Glucose (UA) Negative (Negative) Urine Ketones 4+ H (Negative) Urine Blood Trace H (Negative) Urine Nitrite Negative (Negative) Urine Bilirubin 1+ H (Negative) Urine Urobilinogen 6.0 (<2.0) mg/dL Ur Leukocyte Esterase Negative (Negative) Urine RBC 2 (0-5) /hpf Urine WBC 4 (0-5) /hpf Ur Squamous Epith Cells 11 H (0-4) /hpf Urine Bacteria Occasional H (None) /hpf Urine Mucus Many H (None) /hpf Disposition Clinical Impression: Nausea and vomiting Disposition: HOME SELF-CARE Condition: Stable Instructions (If sedation given, give patient instructions): Acute Nausea and Vomiting (ED) Additional Instructions: Discontinue marijuana use. Please do follow-up to primary care physician in the next couple days for recheck. Return for uncontrolled vomiting, pain, fevers, worsening or changing symptoms or other concerns. Is patient prescribed a controlled substance at d/c from ED?: No Referrals: Terry Rivera MD [Primary Care Provider] - 1-2 days Time of Disposition: 12:06
[2023-01-14 08:47] LABS: Basophils % (A) 0 %; Eosinophils % (A) 0 %; HCT 42.2 % (34.0-46.0); HGB 14.3 gm/dL (11.4-16.0); Lymphocytes # (A) 1.8 k/uL (1.0-4.8); Lymphocytes % (A) 14 %; MCH 29.8 pg (25.0-35.0); MCV 87.6 fL (80.0-100.0); Mean Platelet Volume 8.5; Monocytes # (A) 0.6 k/uL (0-1.0); Monocytes % (A) 4 %; Neutrophils # (A) 10.6 k/uL (1.3-7.7); Neutrophils % (A) 81 %; Platelet Count 275 k/uL (150-450); RBC 4.82 m/uL (3.80-5.40); RDW 12.4 % (11.5-15.5); WBC 13.2 k/uL (3.8-10.6)
[2023-01-14 08:57] LABS: ALT 21 U/L (4-34); AST 22 U/L (14-36); African American GFR (CKD) >90 (>60 ml/min/1.73 sqM); Albumin 4.8 g/dL (3.5-5.0); Alkaline Phosphatase 64 U/L (38-126); Amylase 128 U/L (30-110); Anion Gap 15 mmol/L; Blood Urea Nitrogen 12 mg/dL (7-17); Calcium 9.8 mg/dL (8.4-10.2); Carbon Dioxide 21 mmol/L (22-30); Chloride 103 mmol/L (98-107); Glucose 102 mg/dL (74-99); Lipase 336 U/L (23-300); Non-African American GFR(CKD) >90 (>60 ml/min/1.73 sqM); Potassium 3.6 mmol/L (3.5-5.1); Sodium 139 mmol/L (137-145); Total Protein 7.7 g/dL (6.3-8.2)
[2023-01-14 09:13] LABS: HCG,Quantitative Serum <2.4 mIU/mL
[2023-01-14 09:29] VITALS: RESP 16
--- NOTE | 2023-01-14 09:32 | XR ---
EXAMINATION TYPE: XR KUB DATE OF EXAM: 01/14/2023 COMPARISON: NONE HISTORY: Pain TECHNIQUE: Single supine KUB image of the abdomen is obtained FINDINGS: Small bowel demonstrates no evidence for dilatation or air fluid levels. Gas and fecal material is seen in non-distended colon. No convincing evidence for pneumoperitoneum. No unusual calcifications. The lung bases are clear. The osseous structures are intact. IMPRESSION: 1. Overall nonobstructive bowel gas pattern.
[2023-01-14 09:48] LABS: Appearance,Urine Cloudy (Clear); Bacteria,Urine Occasional /hpf; Bilirubin,Urine 1+ (Negative); Blood,Urine Trace (Negative); Color,Urine Yellow; Glucose,Urine (UA) Negative (Negative); Ketones,Urine 4+ (Negative); Leukocyte Esterase,Urine Negative (Negative); Mucus,Urine Many /hpf; Nitrite,Urine Negative (Negative); Protein,Urine 1+ (Negative); RBC,Urine 2 /hpf (0-5); Specific Gravity,Urine 1.035 (1.001-1.035); Squamous Epithelial Cell,Urine 11 /hpf (0-4); WBC,Urine 4 /hpf (0-5)
[2023-01-14] MEDS ORDERED: METOCLOPRAMIDE 5 MG/ML 2 ML VIAL IVP STA (10:20)
[2023-01-14] MEDS ORDERED: diphenhydrAMINE 50 MG/ML 1 ML VIAL IVP STA (12:02)
[2023-01-14] MEDS ORDERED: KETOROLAC 15 MG/ML 1 ML VIAL IVP STA (12:02)
[2023-01-14 12:18] VITALS: PULSE 65
[2023-01-14 13:20] VITALS: BP 138/72; TEMP 98.2
== END 2023-01-14 13:08 | disposition home or self-care (01) ==
LOC: EC 07:59
DX: R11.2 Nausea with vomiting, unspecified (principal); F12.90 Cannabis use, unspecified, uncomplicated; Z86.59 Personal history of other mental and behavioral disorders; Z90.49 Acquired absence of other specified parts of digestive tract
CPT/HCPCS: 36415; 80053; 82150; 83690; 85025; 81001; 84702; 74018; 99284; 96372; 96374; 96375 ×4; 96376; 96361 ×2; J1200; J0500; J2765; J2405; J3490; J1885

== ENCOUNTER → 2023-01-18 | Outpatient (CLI) | payer OTHER ==
[2023-01-18 10:09] VITALS: BP 139/76; PULSE 59; RESP 16; TEMP 98.7
--- NOTE | 2023-01-18 10:36 | P.PN ---
Progress Note - Text Progress Note Date: 01/18/23 Chief Complaint: Vulvar itching recurred for the past month. HPI: This is a 27-year-old G0 with an LMP of 01/14/2023. The patient's was treated for prem vaginitis in early November of this year. Her symptoms at that time included a thick discharge with vulvar itching and irritation. Affirm vaginitis panel was positive for prem and negative for Gardnerella and Trichomonas. GC and chlamydia testing were also negative at that time. She was treated with Diflucan 150 mg every 48 hours 2 doses. She states she had significant improvement with her symptoms for several weeks, but during the past month she is again having the vulvar itching and irritation. This time she denies vaginal discharge or vaginal odor. She has been with the same sexual partner and they have used withdrawal for control. They do not use condoms. She found out that her boyfriend cheated on her after she was last seen here in November. She is requesting to be retested for GC and chlamydia. ROS: She denies fever, respiratory, cardiac, or GI problems. PE: Blood pressure: 139/76, Height: 5 feet 0 inches, Weight: 126 pounds, Temperature: 98.7, Pulse: 59. Pulse oximeter 100%. This is a well developed, well nourished, white female who is alert and orientedx3, in no acute distress. External genitalia: There is a generalized mild erythema without ulceration or excoriation. There are no focal lesions. Vagina: There is a small amount of menstrual type blood in the back of the vagina with no unusual discharge. No odor is noted. Impression: 1. 27-year-old with acute vulvitis with vulvar pruritus. Differential diagnosis will include nonspecific vulvar dermatitis, perm vaginitis, bacter ial vaginosis, and residual vulvar irritation following her treated prem vaginitis. I doubt HSV is the cause for her current vulvitis. 2. Partner infidelity Plan: 1. Affirm vaginitis panel from the vagina has been taken. GC and chlamydia testing from the cervix is also been obtained. 2. Kenalog 0.1% cream twice a day as needed for vulvar pruritus. I have also asked her to avoid over washing and to avoid scratching and rubbing the area. She will pay attention to different things that come in contact with her skin to see if she can identify what is irritating the skin. 3. STD prevention was discussed I have stressed the importance of limiting sexual partners and avoiding partners who have other sexual partners. We have also discussed use condoms which may help decrease STDs. 4. She will return in November of next year for her annual exam and sooner as needed. Time spent with the patient: 15 minutes
[2023-01-19 14:21] LABS: Gardnerella Negative (Negative); Trichomonas Negative (Negative)
[2023-01-19 14:38] LABS: N. gonorrhoeae,PCR Negative (Negative)
[2023-01-19 14:56] LABS: C. trachomatis,PCR Negative (Negative)
--- NOTE | 2023-01-20 16:12 | P.PN ---
Progress Note - Text Progress Note Date: 01/20/23 Test results from 01/18/23 include Affirm vaginitis panel negative for Aury, Gardnerella, and Trichomonas. GC and Chlamydia testing were also negative. The patient was notified by phone on 01/20/23. Impression: non-specific vulvitis. Negaive Aury, Gardnerella, Trichomonas. GC and Chlamydia testing. Plan: Kenalog cream as prescribed as directed. She states it is helping. Avoid overwashing with soap, rubbing and scratching. She can also use petroleum jelly or Aquaphor as a protective layer. Call if not improving or if problems.
== END ==
LOC: WWCWWP 09:54
PROVIDERS: ATTEND Obstetrics & Gynecology
DX: Z11.3 Encounter for screening for infections with a predominantly sexual mode of transmission (principal); N76.2 Acute vulvitis; L29.2 Pruritus vulvae; F17.200 Nicotine dependence, unspecified, uncomplicated
CPT/HCPCS: 87480; 87491; 87510; 87591; 87660

== ENCOUNTER 2023-02-10 04:32 | Inpatient (IN) | payer OTHER ==
[2023-02-10] MEDS ORDERED: PANTOPRAZOLE 40 MG/10 ML VIAL IVP STA (04:54)
[2023-02-10] MEDS ORDERED: ONDANSETRON 4 MG/2 ML VIAL IVP STA (04:54)
[2023-02-10] MEDS ORDERED: MORPHINE SULFATE 4 MG/ML SYRINGE IVP STA (04:54)
[2023-02-10] MEDS ORDERED: SODIUM CHLORIDE 0.9% 1,000 ML IV STA (04:54)
--- NOTE | 2023-02-10 04:57 | ED ---
Abdominal Pain HPI - General Chief Complaint: Nausea/Vomiting/Diarrhea Stated Complaint: Vomiting, Abdominal Pain Time Seen by Provider: 02/10/23 04:52 Source: patient, RN notes reviewed, old records reviewed Mode of arrival: ambulatory - History of Present Illness Initial Comments: This is a 27-year-old female to the emergency department for evaluation today. Patient presents today for evaluation of severe abdominal pain. Patient is vomiting severe abdominal pain with nausea vomiting and diarrhea. Pain is severe in nature sharp and stabbing. She is without fever without significant travel history. MD Complaint: abdominal pain -: hour(s), days(s) (2) Location: diffuse Radiation: epigastric, suprapubic Migration to: epigastric Severity: moderate, severe Severity scale (1-10): 9 Quality: stabbing, aching Consistency: intermittent Improves With: nothing Worsens With: nothing Associated Symptoms: nausea, vomiting, diarrhea - Related Data Previous Rx's Medication Instructions Recorded Metoclopramide [Reglan] 5 mg PO AC-TID 15 Days #45 tab 02/12/23 Allergies Allergy/AdvReac Type Severity Reaction Status Date / Time No Known Allergies Allergy Verified 02/10/23 07:25 Review of Systems ROS Statement: Those systems with pertinent positive or pertinent negative responses have been documented in the HPI. ROS Other: All systems not noted in ROS Statement are negative. Past Medical History Past Medical History: GERD/Reflux Additional Past Medical History / Comment(s): MIGRAINES, BACK PAIN. 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 No other history of STDs. History of Any Multi-Drug Resistant Organisms: None Reported Past Surgical History: Cholecystectomy, Hernia Repair Additional Past Surgical History / Comment(s): Hiatal hernia repair. Past Anesthesia/Blood Transfusion Reactions: Motion Sickness Additional Past Anesthesia/Blood Transfusion Reaction / Comment(s): NO ANESTHESIA HX Past Psychological History: Anxiety Smoking Status: Never smoker Past Alcohol Use History: Occasional Past Drug Use History: Marijuana - Past Family History Mother Family Medical History: No Reported History Additional Family Medical History / Comment(s): Maternal grandmother had colon cancer. A maternal great grandmother had breast cancer. Father Family Medical History: Hypertension General Exam General appearance: alert, in no apparent distress Head exam: Present: atraumatic, normocephalic, normal inspection Eye exam: Present: normal appearance, PERRL, EOMI. Absent: scleral icterus, conjunctival injection, periorbital swelling ENT exam: Present: normal exam, mucous membranes moist Neck exam: Present: normal inspection. Absent: tenderness, meningismus, lymphadenopathy Respiratory exam: Present: normal lung sounds bilaterally. Absent: respiratory distress, wheezes, rales, rhonchi, stridor Cardiovascular Exam: Present: regular rate, normal rhythm, normal heart sounds. Absent: systolic murmur, diastolic murmur, rubs, gallop, clicks GI/Abdominal exam: Present: soft, normal bowel sounds. Absent: distended, tenderness, guarding, rebound, rigid Extremities exam: Present: normal inspection, full ROM, normal capillary refill. Absent: tenderness, pedal edema, joint swelling, calf tenderness Back exam: Present: normal inspection Neurological exam: Present: alert, oriented X3, CN II-XII intact Psychiatric exam: Present: normal affect, normal mood Skin exam: Present: warm, dry, intact, normal color. Absent: rash Course Vital Signs 02/10/23 02/10/23 02/10/23 04:36 06:38 08:16 Temperature 98.6 F 98.0 F Pulse Rate 60 64 71 Respiratory 18 16 18 Rate Blood Pressure 147/86 103/71 114/81 O2 Sat by Pulse 98 97 98 Oximetry 02/10/23 09:14 Temperature Pulse Rate 55 L Respiratory 18 Rate Blood Pressure 108/76 O2 Sat by Pulse 97 Oximetry - Reevaluation(s) Reevaluation #1: 02/10/23 05:57 Medical records reviewed Reevaluation #2: Patient symptoms improved here in the ER Reevaluation #3: Patient informed results questions answered Reevaluation #4: 02/10/23 05:57 Was pt. sent in by a medical professional or institution (, PA, SNUFF DRIER, urgent care, hospital, or senior care...) When possible be specific @ -no Did you speak to anyone other than the patient for history (EMS, parent, family, police, friend...)? What history was obtained from this source @ -no Did you review nursing and triage notes (agree or disagree)? Why? @ -agree Are old charts reviewed (outside hosp., previous admission, EMS record, old EKG, old radiological studies, urgent care reports/EKG's, senior care records)? Report findings @ -yes Differential Diagnosis (chest pain, altered mental status, abdominal pain women, abdominal pain men, vaginal bleeding, weakness, fever, dyspnea, syncope, headache, dizziness, GI bleed, back pain, seizure, CVA, palpatations, mental health, musculoskeletal)? @ -prior EKG interpreted by me (3pts min.). @ -no X-rays interpreted by me (1pt min.). @ -no CT interpreted by me (1pt min.). @ -yes U/S interpreted by me (1pt. min.). @ -no What testing was considered but not performed or refused? (CT, X-rays, U/S, labs)? Why? @ -none What meds were considered but not given or refused? Why? @ -none Did you discuss the management of the patient with other professionals (professionals i.e. , PA, SNUFF DRIER, lab, RT, psych nurse, mental health social worker, neon sign installer, teacher, bomb squad officer, lead case manager)? Give summary @ -no Was smoking cessation discussed for >3mins.? @ -no Was critical care preformed (if so, how long)? @ -no Were there social determinants of health that impacted care today? How? (Homelessness, low income, unemployed, alcoholism, drug addiction, transportation, low edu. Level, literacy, decrease access to med. care, snf, rehab)? @ -none Was there de-escalation of care discussed even if they declined (Discuss DNR or withdrawal of care, Hospice)? DNR status @ -no What co-morbidities impacted this encounter? (DM, HTN, Smoking, COPD, CAD, Cancer, CVA, ARF, Chemo, Hep., AIDS, mental health diagnosis, sleep apnea, morbid obesity)? @ -none Was patient admitted / discharged? Hospital course, mention meds given and route, prescriptions, significant lab abnormalities, going to OR and other pertinent info. @ - 27 female with significant nausea vomiting persistent nausea vomiting here in the ER with acute pancreatitis. Patient be admitted for symptomatic therapy and nothing by mouth status Admitted Undiagnosed new problem with uncertain prognosis? @ -no Drug Therapy requiring intensive monitoring for toxicity (Heparin, Nitro, Insulin, Cardizem)? @ -no Were any procedures done? @ -no Diagnosis/symptom? @ -Acute pancreatitis Acute, or Chronic, or Acute on Chronic? @ -Acute Uncomplicated (without systemic symptoms) or Complicated (systemic symptoms)? @ -Complicated Side effects of treatment? @ -no Exacerbation, Progression, or Severe Exacerbation? @ -exacerbation Poses a threat to life or bodily function? How? (Chest pain, [place], [place], pneumonia, PE, COPD, DKA, ARF, appy, cholecystitis, CVA, Diverticulitis, Homicidal, Suicidal, threat to staff... and all critical care pts) @ -yes the significant acute pancreatitis Reevaluation #5: 02/10/23 05:57 Differential Abdominal Pain Women: Appendicitis, Cholecystitis, diverticulosis, ischemic bowel, pancreatitis, hepatitis, UTI, gastroenteritis, AAA, incarcerated hernia, bowel obstruction, constipation, inflammatory bowel, hepatitis, peptic ulcer disease, splenic infarction, perforated viscus, vulvitis, ovarian torsion, PID, kidney stone, placenta abruption, this is not meant to be an all-inclusive list - Consultations Consultation #1: Spoke with admitting physicians who agree to admit this patient Medical Decision Making - Medical Decision Making 27 female with significant nausea vomiting persistent nausea vomiting here in the ER with acute pancreatitis. Patient be admitted for symptomatic therapy and nothing by mouth status - Lab Data Result diagrams: 02/11/23 06:12 02/11/23 06:12 Lab Results 02/10/23 02/10/23 02/10/23 Range/Units 04:56 04:56 05:24 WBC 11.4 H (3.8-10.6) k/uL RBC 4.78 (3.80-5.40) m/uL Hgb 14.2 (11.4-16.0) gm/dL Hct 41.0 (34.0-46.0) % MCV 85.7 (80.0-100.0) fL MCH 29.8 (25.0-35.0) pg MCHC 34.7 (31.0-37.0) g/dL RDW 12.6 (11.5-15.5) % Plt Count 301 (150-450) k/uL MPV 8.7 Neutrophils % 81 % Lymphocytes % 14 % Monocytes % 4 % Eosinophils % 1 % Basophils % 0 % Neutrophils # 9.2 H (1.3-7.7) k/uL Lymphocytes # 1.6 (1.0-4.8) k/uL Monocytes # 0.4 (0-1.0) k/uL Eosinophils # 0.1 (0-0.7) k/uL Basophils # 0.0 (0-0.2) k/uL Sodium (137-145) mmol/L Potassium (3.5-5.1) mmol/L Chloride (98-107) mmol/L Carbon Dioxide (22-30) mmol/L Anion Gap mmol/L BUN (7-17) mg/dL Creatinine (0.52-1.04) mg/dL Est GFR (CKD-EPI)AfAm (>60 ml/min/1.73 sqM) Est GFR (CKD-EPI)NonAf (>60 ml/min/1.73 sqM) Glucose (74-99) mg/dL Calcium (8.4-10.2) mg/dL Total Bilirubin (0.2-1.3) mg/dL AST (14-36) U/L ALT (4-34) U/L Alkaline Phosphatase (38-126) U/L Total Protein (6.3-8.2) g/dL Albumin (3.5-5.0) g/dL Amylase (30-110) U/L Lipase (23-300) U/L Urine Color Yellow Urine Appearance Clear (Clear) Urine pH 6.0 (5.0-8.0) Ur Specific [place] 1.031 (1.001-1.035) Urine Protein Trace H (Negative) Urine Glucose (UA) Negative (Negative) Urine Ketones 3+ H (Negative) Urine Blood Moderate H (Negative) Urine Nitrite Negative (Negative) Urine Bilirubin Negative (Negative) Urine Urobilinogen 4.0 (<2.0) mg/dL Ur Leukocyte Esterase Negative (Negative) Urine RBC 1 (0-5) /hpf Urine WBC 2 (0-5) /hpf Ur Squamous Epith Cells 1 (0-4) /hpf Urine Bacteria Rare H (None) /hpf Urine Mucus Moderate H (None) /hpf Urine HCG, Qual Not Detected (Not Detectd) 02/10/23 Range/Units 05:24 WBC (3.8-10.6) k/uL RBC (3.80-5.40) m/uL Hgb (11.4-16.0) gm/dL Hct (34.0-46.0) % MCV (80.0-100.0) fL MCH (25.0-35.0) pg MCHC (31.0-37.0) g/dL RDW (11.5-15.5) % Plt Count (150-450) k/uL MPV Neutrophils % % Lymphocytes % % Monocytes % % Eosinophils % % Basophils % % Neutrophils # (1.3-7.7) k/uL Lymphocytes # (1.0-4.8) k/uL Monocytes # (0-1.0) k/uL Eosinophils # (0-0.7) k/uL Basophils # (0-0.2) k/uL Sodium 140 (137-145) mmol/L Potassium 3.4 L (3.5-5.1) mmol/L Chloride 104 (98-107) mmol/L Carbon Dioxide 19 L (22-30) mmol/L Anion Gap 17 mmol/L BUN 17 (7-17) mg/dL Creatinine 0.64 (0.52-1.04) mg/dL Est GFR (CKD-EPI)AfAm >90 (>60 ml/min/1.73 sqM) Est GFR (CKD-EPI)NonAf >90 (>60 ml/min/1.73 sqM) Glucose 98 (74-99) mg/dL Calcium 9.6 (8.4-10.2) mg/dL Total Bilirubin 0.8 (0.2-1.3) mg/dL AST 23 (14-36) U/L ALT 19 (4-34) U/L Alkaline Phosphatase 65 (38-126) U/L Total Protein 7.6 (6.3-8.2) g/dL Albumin 4.8 (3.5-5.0) g/dL Amylase 152 H (30-110) U/L Lipase 942 H (23-300) U/L Urine Color Urine Appearance (Clear) Urine pH (5.0-8.0) Ur Specific [place] (1.001-1.035) Urine Protein (Negative) Urine Glucose (UA) (Negative) Urine Ketones (Negative) Urine Blood (Negative) Urine Nitrite (Negative) Urine Bilirubin (Negative) Urine Urobilinogen (<2.0) mg/dL Ur Leukocyte Esterase (Negative) Urine RBC (0-5) /hpf Urine WBC (0-5) /hpf Ur Squamous Epith Cells (0-4) /hpf Urine Bacteria (None) /hpf Urine Mucus (None) /hpf Urine HCG, Qual (Not Detectd) - Radiology Data Radiology results: report reviewed (CT of the abdomen and pelvis negative for acute disease), image reviewed Disposition Clinical Impression: Pancreatitis, Dehydration, Intractable nausea and vomiting Disposition: ADMITTED IP TO THIS HOSP Condition: Good Is patient prescribed a controlled substance at d/c from ED?: No Time of Disposition: 07:30
[2023-02-10 05:31] LABS: Basophils % (A) 0 %; Eosinophils # (A) 0.1 k/uL (0-0.7); Eosinophils % (A) 1 %; HGB 14.2 gm/dL (11.4-16.0); Lymphocytes # (A) 1.6 k/uL (1.0-4.8); Lymphocytes % (A) 14 %; MCH 29.8 pg (25.0-35.0); MCHC 34.7 g/dL (31.0-37.0); MCV 85.7 fL (80.0-100.0); Mean Platelet Volume 8.7; Monocytes # (A) 0.4 k/uL (0-1.0); Monocytes % (A) 4 %; Neutrophils # (A) 9.2 k/uL (1.3-7.7); Neutrophils % (A) 81 %; Platelet Count 301 k/uL (150-450); RBC 4.78 m/uL (3.80-5.40); RDW 12.6 % (11.5-15.5); WBC 11.4 k/uL (3.8-10.6)
[2023-02-10 05:42] LABS: ALT 19 U/L (4-34); AST 23 U/L (14-36); African American GFR (CKD) >90 (>60 ml/min/1.73 sqM); Albumin 4.8 g/dL (3.5-5.0); Alkaline Phosphatase 65 U/L (38-126); Amylase 152 U/L (30-110); Anion Gap 17 mmol/L; Blood Urea Nitrogen 17 mg/dL (7-17); Calcium 9.6 mg/dL (8.4-10.2); Carbon Dioxide 19 mmol/L (22-30); Chloride 104 mmol/L (98-107); Glucose 98 mg/dL (74-99); Lipase 942 U/L (23-300); Non-African American GFR(CKD) >90 (>60 ml/min/1.73 sqM); Potassium 3.4 mmol/L (3.5-5.1); Sodium 140 mmol/L (137-145); Total Bilirubin 0.8 mg/dL (0.2-1.3); Total Protein 7.6 g/dL (6.3-8.2)
--- NOTE | 2023-02-10 07:12 | CT ---
EXAMINATION TYPE: CT abdomen pelvis wo con CT DLP: 364.7 mGycm, Automated exposure control for dose reduction was used. DATE OF EXAM: 02/10/2023 5:13 AM COMPARISON: CT abdomen pelvis most recent from 01/14/2022, KUB 01/14/2023 . CLINICAL INDICATION:Female, 27 years old with history of abdominal pain; TECHNIQUE: Standard CT of the abdomen and pelvis without IV or oral contrast. Lack of IV or oral co ntrast limits evaluation of solid and hollow organ viscera. Coronal and sagittal reformats were perfo rmed. FINDINGS: LOWER CHEST: Unremarkable ABDOMEN LIVER: Unremarkable GALLBLADDER AND BILE DUCTS: The gallbladder is surgically absent. PANCREAS: Unremarkable. SPLEEN: Unremarkable. ADRENAL GLANDS: Unremarkable. KIDNEYS AND URETERS: No evidence of hydronephrosis or renal calculus. PELVIS BLADDER: Unremarkable REPRODUCTIVE: Unremarkable. ABDOMEN & PELVIS STOMACH AND BOWEL: Postsurgical changes at the GE junction with similar small to moderate hiatal eddy ia demonstrated. A few distal colonic diverticula without evidence for acute diverticulitis. The appe ndix is within normal limits. No evidence of bowel obstruction. PERITONEUM: No evidence of pneumoperitoneum or free fluid. VASCULATURE: No evidence of aortic aneurysm. MUSCULOSKELETAL: No acute osseous abnormalities LYMPH NODES: No gross evidence for lymphadenopathy. SOFT TISSUE/ABDOMINAL WALL: Unremarkable IMPRESSION: 1. No acute abdominal/pelvic process. 2. Similar small to moderate size hiatal hernia with postsurgical changes at the GE junction. 3. Colonic diverticulosis without evidence for acute diverticulitis.
[2023-02-10] MEDS ORDERED: NALOXONE 0.4 MG/ML 1 ML VIAL IV PRN (07:32)
[2023-02-10] MEDS: ONDANSETRON 4 MG/2 ML VIAL IVP PRN ×3 (08:17→22:59)
[2023-02-10] MEDS: PANTOPRAZOLE 40 MG/10 ML VIAL IV SCH (08:17)
[2023-02-10] MEDS: SODIUM CHLORIDE 0.9% 1,000 ML IV SCH ×3 (08:17→23:02)
[2023-02-10] MEDS: MORPHINE SULFATE 4 MG/ML SYRINGE IV PRN ×4 (08:18→23:00)
[2023-02-10 12:31] LABS: Appearance,Urine Clear (Clear); Bacteria,Urine Rare /hpf; Bilirubin,Urine Negative (Negative); Blood,Urine Moderate (Negative); Color,Urine Yellow; Glucose,Urine (UA) Negative (Negative); Ketones,Urine 3+ (Negative); Leukocyte Esterase,Urine Negative (Negative); Mucus,Urine Moderate /hpf; Nitrite,Urine Negative (Negative); Protein,Urine Trace (Negative); RBC,Urine 1 /hpf (0-5); Specific Gravity,Urine 1.031 (1.001-1.035); Squamous Epithelial Cell,Urine 1 /hpf (0-4); WBC,Urine 2 /hpf (0-5)
--- NOTE | 2023-02-10 15:23 | P.GSCN ---
History of Present Illness Consult date: 02/10/23 History of present illness: CHIEF COMPLAINT: Abdominal pain HISTORY OF PRESENT ILLNESS: This is a 27-year-old female who presented to the hospital with complaints of epigastric abdominal pain that started yesterday. She was having nausea and vomiting. She was found have elevated lipase of 942. She's been diagnosed with pancreatitis. Patient does report a prior history of pancreatitis. Patient has a history of cholecystectomy in December 2021. Patient denies any fever chills or sweats. Ports normal bowel movements. Denies any alcohol use. Denies any new meds. Computed tomography scan abdomen and pelvis shows no acute process. Patient is currently nothing by mouth IV fluids and pain medication as needed. PAST MEDICAL HISTORY: GERD, pancreatitis, PAST SURGICAL HISTORY: Cholecystectomy, hiatal hernia repair MEDICATIONS: See below ALLERGIES: See below SOCIAL HISTORY: No illicit drug use. REVIEW OF SYSTEMS: CONSTITUTIONAL: Denies fever or chills. HEENT: Denies blurred vision, vision changes, or eye pain. Denies hemoptysis CARDIOVASCULAR: Denies chest pain or pressure. RESPIRATORY: No shortness of breath. GASTROINTESTINAL: See HPI for pertinent findings HEMATOLOGIC: Denies bleeding disorders. GENITOURINARY: Denies any blood in urine or increased urinary frequency. SKIN: Denies pruitis. Denies rash. PHYSICAL EXAM: VITAL SIGNS: Reviewed GENERAL: Well-developed in no acute distress. HEENT: No sclera icterus. Extraocular movements grossly intact. Moist buccal mucosa. Head is atraumatic, normocephalic. No nasal drainage. ABDOMEN: Soft. Nondistended. Epigastric tenderness with palpation NEUROLOGIC: Alert and oriented. Cranial nerves II through XII grossly intact. LABORATORY DATA: WBC 11.4 Hgb 14.2 platelets 301 Sodium 140 potassium 3.4 creatinine 0.64 Amylase 152 lipase 942 LFTs normal IMAGING: Computed tomography scan of pelvis no acute abdominal pelvic process. Similar small to moderate size hiatal hernia with postsurgical changes at the GE junction. Colonic diverticulosis without evidence of acute diverticulitis ASSESSMENT: 1. Acute pancreatitis 2. History of cholecystectomy PLAN: -Keep patient nothing by mouth -Continue IV fluids -Continue pain management -Continue antiemetics -Repeat labs in a.m. -Add antibiotics due to leukocytosis Case and plan discussed with Dr. Yusuf Thank you for this consultation Physician Laundry Operator note has been reviewed by physician. Signing provider agrees with the documented findings, assessment, and plan of care. Past Medical History Past Medical History: GERD/Reflux Additional Past Medical History / Comment(s): MIGRAINES, BACK PAIN. 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 No other history of STDs. History of Any Multi-Drug Resistant Organisms: None Reported Past Surgical History: Cholecystectomy, Hernia Repair Additional Past Surgical History / Comment(s): Hiatal hernia repair 2019, Past Anesthesia/Blood Transfusion Reactions: Motion Sickness Additional Past Anesthesia/Blood Transfusion Reaction / Comm: NO ANESTHESIA HX Past Psychological History: Anxiety Smoking Status: Former smoker Past Alcohol Use History: Occasional Additional Past Alcohol Use History / Comment(s): QUIT SMOKING AT 21 YRS OLD, STARTED SMOKING AGE 15, SMOKED 1/2 PPD OR LESS. Past Drug Use History: Marijuana Additional Drug Use History / Comment(s): DAILY MARIJANA USE. - Past Family History Mother Family Medical History: No Reported History Additional Family Medical History / Comment(s): Maternal grandmother had colon cancer. A maternal great grandmother had breast cancer. Father Family Medical History: Hypertension Medications and Allergies Home Medications Medication Instructions Recorded Confirmed Type No Known Home Medications 02/10/23 02/10/23 History Allergies Allergy/AdvReac Type Severity Reaction Status Date / Time No Known Allergies Allergy Verified 02/10/23 07:25 Surgical - Exam Vital Signs Temp Pulse Resp BP Pulse Ox 98.6 F 60 18 147/86 98 02/10/23 04:36 02/10/23 04:36 02/10/23 04:36 02/10/23 04:36 02/10/23 04:36 Results - Labs 02/10/23 05:24 02/10/23 05:24 Abnormal Lab Results - Last 24 Hours (Table) 02/10/23 02/10/23 02/10/23 Range/Units 04:56 05:24 05:24 WBC 11.4 H (3.8-10.6) k/uL Neutrophils # 9.2 H (1.3-7.7) k/uL Potassium 3.4 L (3.5-5.1) mmol/L Carbon Dioxide 19 L (22-30) mmol/L Amylase 152 H (30-110) U/L Lipase 942 H (23-300) U/L Urine Protein Trace H (Negative) Urine Ketones 3+ H (Negative) Urine Blood Moderate H (Negative) Urine Bacteria Rare H (None) /hpf Urine Mucus Moderate H (None) /hpf Diabetes panel 02/10/23 Range/Units 05:24 Sodium 140 (137-145) mmol/L Potassium 3.4 L (3.5-5.1) mmol/L Chloride 104 (98-107) mmol/L Carbon Dioxide 19 L (22-30) mmol/L BUN 17 (7-17) mg/dL Creatinine 0.64 (0.52-1.04) mg/dL Glucose 98 (74-99) mg/dL Calcium 9.6 (8.4-10.2) mg/dL AST 23 (14-36) U/L ALT 19 (4-34) U/L Alkaline Phosphatase 65 (38-126) U/L Total Protein 7.6 (6.3-8.2) g/dL Albumin 4.8 (3.5-5.0) g/dL Calcium panel 02/10/23 Range/Units 05:24 Calcium 9.6 (8.4-10.2) mg/dL Albumin 4.8 (3.5-5.0) g/dL Pituitary panel 02/10/23 Range/Units 05:24 Sodium 140 (137-145) mmol/L Potassium 3.4 L (3.5-5.1) mmol/L Chloride 104 (98-107) mmol/L Carbon Dioxide 19 L (22-30) mmol/L BUN 17 (7-17) mg/dL Creatinine 0.64 (0.52-1.04) mg/dL Glucose 98 (74-99) mg/dL Calcium 9.6 (8.4-10.2) mg/dL Adrenal panel 02/10/23 Range/Units 05:24 Sodium 140 (137-145) mmol/L Potassium 3.4 L (3.5-5.1) mmol/L Chloride 104 (98-107) mmol/L Carbon Dioxide 19 L (22-30) mmol/L BUN 17 (7-17) mg/dL Creatinine 0.64 (0.52-1.04) mg/dL Glucose 98 (74-99) mg/dL Calcium 9.6 (8.4-10.2) mg/dL Total Bilirubin 0.8 (0.2-1.3) mg/dL AST 23 (14-36) U/L ALT 19 (4-34) U/L Alkaline Phosphatase 65 (38-126) U/L Total Protein 7.6 (6.3-8.2) g/dL Albumin 4.8 (3.5-5.0) g/dL
[2023-02-10] MEDS: PIPERACILLIN-TAZOBACTAM 3.375 GM in SODIUM CHLORIDE 0.9% 100 ML IVPB SCH ×2 (17:44→22:59)
[2023-02-11] MEDS: MORPHINE SULFATE 4 MG/ML SYRINGE IV PRN ×4 (05:03→18:41)
[2023-02-11] MEDS: ONDANSETRON 4 MG/2 ML VIAL IVP PRN (08:18)
[2023-02-11] MEDS: PANTOPRAZOLE 40 MG/10 ML VIAL IV SCH (08:18)
[2023-02-11] MEDS: PIPERACILLIN-TAZOBACTAM 3.375 GM in SODIUM CHLORIDE 0.9% 100 ML IVPB SCH ×3 (08:18→23:58)
[2023-02-11 11:05] LABS: Basophils # (A) 0.04 X 10*3/uL (0.00-0.10); Basophils % (A) 0.7 %; Eosinophils # (A) 0.05 X 10*3/uL (0.04-0.35); Eosinophils % (A) 0.9 %; HCT 34.7 % (37.2-46.3); HGB 11.7 g/dL (12.0-15.0); Lymphocytes # (A) 1.62 X 10*3/uL (0.90-5.00); Lymphocytes % (A) 28.6 %; MCH 29.5 pg (27.0-32.0); MCHC 33.7 g/dL (32.0-37.0); MCV 87.4 FL (80.0-97.0); Mean Platelet Volume 11.8 FL (9.5-12.2); Monocytes # (A) 0.46 X 10*3/uL (0.20-1.00); Monocytes % (A) 8.1 %; NRBC Per 100 WBC 0 X 10*3/uL (0.00-0.01); Neutrophils # (A) 3.47 X 10*3/uL (1.80-7.70); Neutrophils % (A) 61.3 %; Platelet Count 162 X 10*3/uL (140-440); RBC 3.97 X 10*6/uL (4.10-5.20); RDW 11.9 % (11.5-14.5); WBC 5.66 X 10*3/uL (4.50-10.00)
[2023-02-11] MEDS: KETOROLAC 15 MG/ML 1 ML VIAL IVP PRN ×2 (11:07→21:58)
[2023-02-11 11:22] LABS: ALT 180 U/L (8-44); AST 172 U/L (13-35); Albumin 3.7 g/dL (3.8-4.9); Albumin/Globulin Ratio 2.18 Ratio (1.60-3.17); Alkaline Phosphatase 69 U/L (41-126); Blood Urea Nitrogen 8.1 mg/dL (9.0-27.0); Calcium 8.1 mg/dL (8.7-10.3); Carbon Dioxide 17.5 mmol/L (21.6-31.8); Chloride 102 mmol/L (96-109); Globulin 1.7 g/dL (1.6-3.3); Glucose 62 mg/dL (70-110); Lipase 29 U/L (14-63); Magnesium 1.9 mg/dL (1.5-2.4); Phosphorus 2.9 mg/dL (2.4-5.1); Potassium 3.5 mmol/L (3.5-5.5); Sodium 134 mmol/L (135-145); Total Bilirubin 1.2 mg/dL (0.3-1.2); Total Protein 5.4 g/dL (6.2-8.2)
--- NOTE | 2023-02-11 11:46 | P.PN ---
Subjective Progress Note Date: 02/11/23 Principal diagnosis: Pancreatitis questionable etiology Patient states feeling about the same today. No emesis. Tolerating ice chips Objective - Vital Signs Vital signs: Vital Signs Temp 97.9 F 02/11/23 07:32 Pulse 69 02/11/23 07:32 Resp 15 02/11/23 07:32 BP 111/60 02/11/23 07:32 Pulse Ox 99 02/11/23 07:32 FiO2 Intake & Output 02/10/23 02/11/23 02/11/23 18:59 06:59 18:59 Intake Total 880 Balance 880 Weight 58.967 kg Intake: Intake, IV Titration 880 Amount Piperacillin-Tazobactam 3 100 .375 gm In Sodium Chloride 0.9% 100 ml @ 25 mls/hr IVPB Q8HR [facility] Rx# :[id number] Sodium Chloride 0.9% 1, 780 000 ml @ 130 mls/hr IV . Q7H42M [facility] Rx#:[id number] Other: Voiding Method Toilet # Voids 2 3 - Constitutional General appearance: Present: mild distress - EENT Eyes: Present: PERRLA - Neck Neck: Present: normal ROM - Respiratory Respiratory: bilateral: CTA - Gastrointestinal General gastrointestinal: Present: normal bowel sounds, soft Localized gastrointestinal: tender: epigastric periumbilical - Integumentary Integumentary: Present: normal, normal turgor - Neurologic Neurologic: Present: CNII-XII intact - Psychiatric Psychiatric: Present: appropriate affect - Labs CBC & Chem 7: 02/11/23 06:12 02/11/23 06:12 Labs: Abnormal Lab Results - Last 24 Hours (Table) 02/10/23 02/11/23 02/11/23 Range/Units 04:56 06:12 06:12 RBC 3.97 L (4.10-5.20) X 10*6/uL Hgb 11.7 L (12.0-15.0) g/dL Hct 34.7 L (37.2-46.3) % Sodium 134 L (135-145) mmol/L Carbon Dioxide 17.5 L (21.6-31.8) mmol/L Anion Gap 14.50 H (4.00-12.00) mmol/L BUN 8.1 L (9.0-27.0) mg/dL Creatinine 0.5 L (0.6-1.5) mg/dL Glucose 62 L (70-110) mg/dL Calcium 8.1 L (8.7-10.3) mg/dL AST 172 H (13-35) U/L ALT 180 H (8-44) U/L Total Protein 5.4 L (6.2-8.2) g/dL Albumin 3.7 L (3.8-4.9) g/dL Urine Protein Trace H (Negative) Urine Ketones 3+ H (Negative) Urine Blood Moderate H (Negative) Urine Bacteria Rare H (None) /hpf Urine Mucus Moderate H (None) /hpf - Imaging and Cardiology Abdominal x-ray: image reviewed CT scan - abdomen: image reviewed Assessment and Plan (1) Dehydration Current Visit: Yes Status: Acute Code(s): E86.0 - DEHYDRATION SNOMED Code(s): 23486475 (2) Intractable nausea and vomiting Current Visit: Yes Status: Acute Code(s): R11.2 - NAUSEA WITH VOMITING, UNSPECIFIED SNOMED Code(s): 134321311 (3) Pancreatitis Current Visit: Yes Status: Acute Code(s): K85.90 - ACUTE PANCREATITIS WITHOUT NECROSIS OR INFECTION, UNSP SNOMED Code(s): 78780800 (4) Headache Current Visit: No Status: Acute Code(s): R51.9 - HEADACHE, UNSPECIFIED SNOMED Code(s): 29686457 Plan: Continue IV hydration. Okay for ice chips.
[2023-02-11] MEDS: SODIUM CHLORIDE 0.9% 1,000 ML IV SCH ×3 (13:05→23:59)
--- NOTE | 2023-02-11 16:22 | HP ---
HISTORY AND PHYSICAL HISTORY OF PRESENT ILLNESS: A young female admitted with acute abdominal pain, pancreatitis, elevated amylase and lipase, failing outpatient treatment. She has nausea, vomiting, some diarrhea, and epigastric pain, [id number], stabbing, aching. HOME MEDICATIONS: None. PAST MEDICAL HISTORY: She has a history of gastroparesis with nausea and vomiting in the past, possibly induced by marijuana, mostly resolved. She has a past medical history of GERD, migraines, and back pain. PAST SURGICAL HISTORY: Cholecystectomy and hernia repair. PHYSICAL EXAMINATION: VITAL SIGNS: Temperature 98.6, respiratory rate 18 to 20, blood pressure is 103 to 147 over 80s to 60s, O2 of 97% to 98%, pulse 60 to 70. CARDIOVASCULAR: S1 and S2. LUNGS: Scattered rhonchi and wheeze. HEMATOLOGY: Negative Homans. PSYCHIATRIC: Fair mood and affect. NEUROLOGIC: Alert and oriented x3. OPHTHALMOLOGICAL: Pupils are equal, round, and reactive. GI: Soft. There is diffuse tenderness. LABORATORY DATA: Elevated amylase and lipase. ASSESSMENT: 1. [id number] pancreatitis. 2. History of marijuana use. 3. History of gastroparesis and gastroesophageal reflux disease. Prognosis is guarded. Follow up in the next 24 to 48 hours. Have surgical consultation. N.p.o. Clear liquid diet as tolerated. Please see further orders. MMODL / IJN: [id number] /
[2023-02-11] MEDS: METOCLOPRAMIDE 5 MG TAB PO SCH (16:23)
[2023-02-11 20:48] VITALS: RESP 16
[2023-02-12] MEDS: ONDANSETRON 4 MG/2 ML VIAL IVP PRN (01:52)
[2023-02-12] MEDS: METOCLOPRAMIDE 5 MG TAB PO SCH ×2 (07:48→13:01)
[2023-02-12] MEDS: PIPERACILLIN-TAZOBACTAM 3.375 GM in SODIUM CHLORIDE 0.9% 100 ML IVPB SCH ×2 (07:48→15:57)
[2023-02-12] MEDS: PANTOPRAZOLE 40 MG/10 ML VIAL IV SCH (07:49)
[2023-02-12] MEDS: SODIUM CHLORIDE 0.9% 1,000 ML IV SCH ×2 (07:49→15:57)
[2023-02-12] MEDS: MORPHINE SULFATE 4 MG/ML SYRINGE IV PRN (07:49)
[2023-02-12] MEDS ORDERED: FLUCONAZOLE 150 MG TAB PO STA (11:08)
--- NOTE | 2023-02-12 13:19 | P.PN ---
Subjective Progress Note Date: 02/12/23 She is on regular diet and about to eat mashed potatoes with gravy, corn, and meatloaf. She denies nausea at this time. CT reviewed with recurrent hiatal hernia. Patient stable for discharge once tolerating regular diet. Objective - Vital Signs Vital signs: Vital Signs Temp 97.6 F 02/12/23 13:07 Pulse 61 02/12/23 13:07 Resp 16 02/12/23 13:07 BP 110/68 02/12/23 13:07 Pulse Ox 97 02/12/23 13:07 FiO2 Intake & Output 02/11/23 02/12/23 02/12/23 18:59 06:59 18:59 Intake Total 720 1740 Balance 720 1740 Intake: Intake, IV Titration 720 1140 Amount Piperacillin-Tazobactam 3 200 100 .375 gm In Sodium Chloride 0.9% 100 ml @ 25 mls/hr IVPB Q8HR [facility] Rx# :[id number] Sodium Chloride 0.9% 1, 520 1040 000 ml @ 130 mls/hr IV . Q7H42M [facility] Rx#:[id number] Oral 600 Other: Voiding Method Toilet # Voids 1 - Labs CBC & Chem 7: 02/11/23 06:12 02/11/23 06:12
[2023-02-12 13:23] VITALS: BP 110/68; PULSE 61; TEMP 97.6
--- NOTE | 2023-02-12 18:10 | PN ---
PROGRESS NOTE DATE OF SERVICE: 02/11/2023 SUBJECTIVE: Remains on Zosyn, Protonix, pain control for pancreatitis, Reglan, and Toradol. She has less nausea and vomiting. She is started on a regular diet. OBJECTIVE: VITAL SIGNS: Pulse 58 to 61, temperature 97.6, blood pressure 90s to 100s over 60s, O2 of 97% on room air. CARDIOVASCULAR: S1 and S2. GI: Soft. HEMATOLOGY: Negative Homans. PSYCHIATRIC: Fair mood and affect. Hemoglobin is down to 11.7. Sodium 134, potassium 3.5, BUN is 8.1, creatinine 0.5. Liver enzymes are high at 170 to 180. Repeat blood work is pending. Lipase is improved. Advance diet. Continue current treatment. Possible discharge home soon if she improves. Waiting for surgical recommendations. Possibly, she can go home. MMODL / IJN: [id number] /
== END 2023-02-12 17:36 | disposition home or self-care (01) | DRG 440 ==
LOC: EC 04:32 → 5NMEDONC 07:33
PROVIDERS: ADMIT Family Medicine; ATTEND Family Medicine
DX: K85.90 Acute pancreatitis without necrosis or infection, unspecified (principal); K86.1 Other chronic pancreatitis; K44.9 Diaphragmatic hernia without obstruction or gangrene; K21.9 Gastro-esophageal reflux disease without esophagitis; G43.909 Migraine, unspecified, not intractable, without status migrainosus; K31.84 Gastroparesis; E86.0 Dehydration; Z82.49 Family history of ischemic heart disease and other diseases of the circulatory system; Z87.891 Personal history of nicotine dependence; A60.09 Herpesviral infection of other urogenital tract; Z28.310 Unvaccinated for COVID-19; Z28.21 Immunization not carried out because of patient refusal; Z80.0 Family history of malignant neoplasm of digestive organs; Z80.3 Family history of malignant neoplasm of breast; Z90.49 Acquired absence of other specified parts of digestive tract
CPT/HCPCS: 36415; 74176; 80053; 81001; 81025; 82150; 83690; 83735; 84100; 85025; 96361; 96374; 96375; 96376; 99285

== ENCOUNTER 2023-03-26 14:52 | Emergency (ER) | payer OTHER ==
[2023-03-26 15:12] VITALS: TEMP 97.6
[2023-03-26] MEDS ORDERED: SODIUM CHLORIDE 0.9% 1,000 ML IV STA ×3 (15:22→17:32)
[2023-03-26] MEDS ORDERED: SODIUM CHLORIDE 0.9% 500 ML 500 ML IV STA (15:22)
[2023-03-26] MEDS ORDERED: MORPHINE SULFATE 4 MG/ML SYRINGE IV STA (15:22)
[2023-03-26] MEDS ORDERED: ONDANSETRON 4 MG/2 ML VIAL IVP STA (15:22)
--- NOTE | 2023-03-26 15:25 | ED ---
Nausea/Vomiting/Diarrhea HPI - General Chief complaint: Nausea/Vomiting/Diarrhea Stated complaint: vomiting feverish weakness Time Seen by Provider: 03/26/23 15:09 Source: patient, RN notes reviewed, old records reviewed Mode of arrival: ambulatory Limitations: no limitations - History of Present Illness Initial comments: This is a 19-year-old female to the emergency department for evaluation today. Patient comes in for persistent nausea vomiting and diarrhea abdominal pain generalized with active vomiting. Patient is known this emergency department has history of similar complaints in the past. No fevers. She does have history of pancreatitis. She has had surgery in the past MD complaint: nausea, vomiting, abdominal pain -: days(s) Description of Vomiting: watery Description of Diarrhea: water Associated Abdominal Pain: Yes Location: diffuse Radiation: none Severity: moderate Severity scale (1-10): 5 Quality: cramping, stabbing, aching Consistency: constant Improves with: vomiting Worsens with: vomiting Associated Symptoms: loss of appetite, malaise, nausea/vomiting, weakness - Related Data Previous Rx's Medication Instructions Recorded Metoclopramide [Reglan] 10 mg PO TID PRN #15 tab 03/27/23 Allergies Allergy/AdvReac Type Severity Reaction Status Date / Time No Known Allergies Allergy Verified 03/28/23 08:33 Review of Systems ROS Statement: Those systems with pertinent positive or pertinent negative responses have been documented in the HPI. ROS Other: All systems not noted in ROS Statement are negative. Past Medical History Past Medical History: GERD/Reflux Additional Past Medical History / Comment(s): MIGRAINES, BACK PAIN. Past MANAGER FAMILY history: Genital HSV. No other history of STDs. History of Any Multi-Drug Resistant Organisms: None Reported Past Surgical History: Cholecystectomy, Hernia Repair Additional Past Surgical History / Comment(s): Hiatal hernia repair. Past Anesthesia/Blood Transfusion Reactions: Motion Sickness Additional Past Anesthesia/Blood Transfusion Reaction / Comment(s): NO ANESTHESIA HX Past Psychological History: Anxiety Smoking Status: Never smoker Past Alcohol Use History: Occasional Past Drug Use History: Marijuana - Past Family History Mother Family Medical History: No Reported History Additional Family Medical History / Comment(s): Maternal grandmother had colon cancer. A maternal great grandmother had breast cancer. Father Family Medical History: Hypertension General Exam Limitations: no limitations General appearance: alert, in no apparent distress, anxious Head exam: Present: atraumatic, normocephalic, normal inspection Eye exam: Present: normal appearance, PERRL, EOMI. Absent: scleral icterus, conjunctival injection, periorbital swelling ENT exam: Present: normal exam, mucous membranes moist Neck exam: Present: normal inspection. Absent: tenderness, meningismus, lymphadenopathy Respiratory exam: Present: normal lung sounds bilaterally. Absent: respiratory distress, wheezes, rales, rhonchi, stridor Cardiovascular Exam: Present: regular rate, normal rhythm, normal heart sounds. Absent: systolic murmur, diastolic murmur, rubs, gallop, clicks GI/Abdominal exam: Present: soft, normal bowel sounds. Absent: distended, tenderness, guarding, rebound, rigid Extremities exam: Present: normal inspection, full ROM, normal capillary refill. Absent: tenderness, pedal edema, joint swelling, calf tenderness Back exam: Present: normal inspection Neurological exam: Present: alert, oriented X3, CN II-XII intact Psychiatric exam: Present: normal affect, normal mood Skin exam: Present: warm, dry, intact, normal color. Absent: rash Course Vital Signs 03/26/23 03/26/23 03/26/23 14:57 17:41 19:30 Temperature 97.6 F Pulse Rate 56 L 64 81 Respiratory 18 14 16 Rate Blood Pressure 143/84 129/81 98/62 O2 Sat by Pulse 99 99 100 Oximetry - Reevaluation(s) Reevaluation #1: 03/26/23 17:34 medical record is reviewed Reevaluation #2: 03/26/23 17:34 She is still with active vomiting although symptoms are improving Reevaluation #3: 03/26/23 17:34 Patient informed results questions answered Reevaluation #4: 03/26/23 16:02 Was pt. sent in by a medical professional or institution (, PA, HOME HEALTH AIDE CAREGIVER, urgent care, hospital, or shelter...) When possible be specific @ -no Did you speak to anyone other than the patient for history (EMS, parent, family, police, friend...)? What history was obtained from this source @ -no Did you review nursing and triage notes (agree or disagree)? Why? @ -agree Are old charts reviewed (outside hosp., previous admission, EMS record, old EKG, old radiological studies, urgent care reports/EKG's, shelter records)? Report findings @ -yes Differential Diagnosis (chest pain, altered mental status, abdominal pain women, abdominal pain men, vaginal bleeding, weakness, fever, dyspnea, syncope, headache, dizziness, GI bleed, back pain, seizure, CVA, palpatations, mental health, musculoskeletal)? @ -prior EKG interpreted by me (3pts min.). @ -yes X-rays interpreted by me (1pt min.). @ -no CT interpreted by me (1pt min.). @ -no U/S interpreted by me (1pt. min.). @ -no What testing was considered but not performed or refused? (CT, X-rays, U/S, labs)? Why? @ -none What meds were considered but not given or refused? Why? @ -none Did you discuss the management of the patient with other professionals (professionals i.e. , PA, HOME HEALTH AIDE CAREGIVER, lab, RT, psych nurse, executive secretary social welfare, skin care consultant, teacher, chief business officer, outsole caser)? Give summary @ -no Was smoking cessation discussed for >3mins.? @ -no Was critical care preformed (if so, how long)? @ -no Were there social determinants of health that impacted care today? How? (Homelessness, low income, unemployed, alcoholism, drug addiction, transportation, low edu. Level, literacy, decrease access to med. care, assisted, rehab)? @ -none Was there de-escalation of care discussed even if they declined (Discuss DNR or withdrawal of care, Hospice)? DNR status @ -no What co-morbidities impacted this encounter? (DM, HTN, Smoking, COPD, CAD, Cancer, CVA, ARF, Chemo, Hep., AIDS, mental health diagnosis, sleep apnea, morbid obesity)? @ -none Was patient admitted / discharged? Hospital course, mention meds given and route, prescriptions, significant lab abnormalities, going to OR and other pertinent info. @ - 27 female to the ER for evaluation of abdominal pain nausea vomiting with acute pancreatitis. Patient is able tolerate on take currently will be given medication at home for symptomatic therapy can be discharged Discharge Undiagnosed new problem with uncertain prognosis? @ -no Drug Therapy requiring intensive monitoring for toxicity (Heparin, Nitro, Insulin, Cardizem)? @ -no Were any procedures done? @ -no Diagnosis/symptom? @ -Abdominal pain and pancreatitis Acute, or Chronic, or Acute on Chronic? @ -Acute Uncomplicated (without systemic symptoms) or Complicated (systemic symptoms)? @ -Complicated Side effects of treatment? @ -no Exacerbation, Progression, or Severe Exacerbation? @ -exacerbation Poses a threat to life or bodily function? How? (Chest pain, [place], [place], pneumonia, PE, COPD, DKA, ARF, appy, cholecystitis, CVA, Diverticulitis, Homicidal, Suicidal, threat to staff... and all critical care pts) @ -no Medical Decision Making - Medical Decision Making 27 female to the ER for evaluation of abdominal pain nausea vomiting with acute pancreatitis. Patient is able tolerate on take currently will be given medication at home for symptomatic therapy can be discharged - Lab Data Result diagrams: 03/26/23 15:28 03/26/23 15:28 Lab Results 03/26/23 03/26/23 03/26/23 Range/Units 15:28 15:28 15:28 WBC 12.1 H (3.8-10.6) k/uL RBC 5.00 (3.80-5.40) m/uL Hgb 14.8 (11.4-16.0) gm/dL Hct 43.3 (34.0-46.0) % MCV 86.6 (80.0-100.0) fL MCH 29.6 (25.0-35.0) pg MCHC 34.2 (31.0-37.0) g/dL RDW 12.5 (11.5-15.5) % Plt Count 246 (150-450) k/uL MPV 8.8 Neutrophils % 91 % Lymphocytes % 7 % Monocytes % 1 % Eosinophils % 0 % Basophils % 0 % Neutrophils # 11.1 H (1.3-7.7) k/uL Lymphocytes # 0.8 L (1.0-4.8) k/uL Monocytes # 0.2 (0-1.0) k/uL Eosinophils # 0.0 (0-0.7) k/uL Basophils # 0.0 (0-0.2) k/uL PT 11.0 (10.0-12.5) sec INR 1.0 (<1.2) APTT 20.9 L (22.0-30.0) sec Sodium 141 (137-145) mmol/L Potassium 4.0 (3.5-5.1) mmol/L Chloride 107 (98-107) mmol/L Carbon Dioxide 21 L (22-30) mmol/L Anion Gap 13 mmol/L BUN 11 (7-17) mg/dL Creatinine 0.56 (0.52-1.04) mg/dL Est GFR (CKD-EPI)AfAm >90 (>60 ml/min/1.73 sqM) Est GFR (CKD-EPI)NonAf >90 (>60 ml/min/1.73 sqM) Glucose 153 H (74-99) mg/dL Plasma Lactic Acid Ilya (0.7-2.0) mmol/L Calcium 9.6 (8.4-10.2) mg/dL Phosphorus 3.5 (2.5-4.5) mg/dL Magnesium 2.1 (1.6-2.3) mg/dL Total Bilirubin 0.5 (0.2-1.3) mg/dL AST 23 (14-36) U/L ALT 20 (4-34) U/L Alkaline Phosphatase 84 (38-126) U/L Troponin I (0.000-0.034) ng/mL Total Protein 7.6 (6.3-8.2) g/dL Albumin 4.8 (3.5-5.0) g/dL Lipase 590 H (23-300) U/L HCG, Qual Not Detected Urine Color Urine Appearance (Clear) Urine pH (5.0-8.0) Ur Specific Stanley (1.001-1.035) Urine Protein (Negative) Urine Glucose (UA) (Negative) Urine Ketones (Negative) Urine Blood (Negative) Urine Nitrite (Negative) Urine Bilirubin (Negative) Urine Urobilinogen (<2.0) mg/dL Ur Leukocyte Esterase (Negative) Urine HCG, Qual (Not Detectd) 03/26/23 03/26/23 03/26/23 Range/Units 15:28 15:28 15:28 WBC (3.8-10.6) k/uL RBC (3.80-5.40) m/uL Hgb (11.4-16.0) gm/dL Hct (34.0-46.0) % MCV (80.0-100.0) fL MCH (25.0-35.0) pg MCHC (31.0-37.0) g/dL RDW (11.5-15.5) % Plt Count (150-450) k/uL MPV Neutrophils % % Lymphocytes % % Monocytes % % Eosinophils % % Basophils % % Neutrophils # (1.3-7.7) k/uL Lymphocytes # (1.0-4.8) k/uL Monocytes # (0-1.0) k/uL Eosinophils # (0-0.7) k/uL Basophils # (0-0.2) k/uL PT (10.0-12.5) sec INR (<1.2) APTT (22.0-30.0) sec Sodium (137-145) mmol/L Potassium (3.5-5.1) mmol/L Chloride (98-107) mmol/L Carbon Dioxide (22-30) mmol/L Anion Gap mmol/L BUN (7-17) mg/dL Creatinine (0.52-1.04) mg/dL Est GFR (CKD-EPI)AfAm (>60 ml/min/1.73 sqM) Est GFR (CKD-EPI)NonAf (>60 ml/min/1.73 sqM) Glucose (74-99) mg/dL Plasma Lactic Acid Ilya 1.7 (0.7-2.0) mmol/L Calcium (8.4-10.2) mg/dL Phosphorus (2.5-4.5) mg/dL Magnesium (1.6-2.3) mg/dL Total Bilirubin (0.2-1.3) mg/dL AST (14-36) U/L ALT (4-34) U/L Alkaline Phosphatase (38-126) U/L Troponin I <0.012 (0.000-0.034) ng/mL Total Protein (6.3-8.2) g/dL Albumin (3.5-5.0) g/dL Lipase (23-300) U/L HCG, Qual Urine Color Colorless Urine Appearance Clear (Clear) Urine pH 7.0 (5.0-8.0) Ur Specific Stanley 1.020 (1.001-1.035) Urine Protein Negative (Negative) Urine Glucose (UA) Trace H (Negative) Urine Ketones 2+ H (Negative) Urine Blood Negative (Negative) Urine Nitrite Negative (Negative) Urine Bilirubin Negative (Negative) Urine Urobilinogen <2.0 (<2.0) mg/dL Ur Leukocyte Esterase Negative (Negative) Urine HCG, Qual (Not Detectd) 03/26/23 Range/Units 15:28 WBC (3.8-10.6) k/uL RBC (3.80-5.40) m/uL Hgb (11.4-16.0) gm/dL Hct (34.0-46.0) % MCV (80.0-100.0) fL MCH (25.0-35.0) pg MCHC (31.0-37.0) g/dL RDW (11.5-15.5) % Plt Count (150-450) k/uL MPV Neutrophils % % Lymphocytes % % Monocytes % % Eosinophils % % Basophils % % Neutrophils # (1.3-7.7) k/uL Lymphocytes # (1.0-4.8) k/uL Monocytes # (0-1.0) k/uL Eosinophils # (0-0.7) k/uL Basophils # (0-0.2) k/uL PT (10.0-12.5) sec INR (<1.2) APTT (22.0-30.0) sec Sodium (137-145) mmol/L Potassium (3.5-5.1) mmol/L Chloride (98-107) mmol/L Carbon Dioxide (22-30) mmol/L Anion Gap mmol/L BUN (7-17) mg/dL Creatinine (0.52-1.04) mg/dL Est GFR (CKD-EPI)AfAm (>60 ml/min/1.73 sqM) Est GFR (CKD-EPI)NonAf (>60 ml/min/1.73 sqM) Glucose (74-99) mg/dL Plasma Lactic Acid Ilya (0.7-2.0) mmol/L Calcium (8.4-10.2) mg/dL Phosphorus (2.5-4.5) mg/dL Magnesium (1.6-2.3) mg/dL Total Bilirubin (0.2-1.3) mg/dL AST (14-36) U/L ALT (4-34) U/L Alkaline Phosphatase (38-126) U/L Troponin I (0.000-0.034) ng/mL Total Protein (6.3-8.2) g/dL Albumin (3.5-5.0) g/dL Lipase (23-300) U/L HCG, Qual Urine Color Urine Appearance (Clear) Urine pH (5.0-8.0) Ur Specific Stanley (1.001-1.035) Urine Protein (Negative) Urine Glucose (UA) (Negative) Urine Ketones (Negative) Urine Blood (Negative) Urine Nitrite (Negative) Urine Bilirubin (Negative) Urine Urobilinogen (<2.0) mg/dL Ur Leukocyte Esterase (Negative) Urine HCG, Qual Not Detected (Not Detectd) - EKG Data -: EKG Interpreted by Me (EKG is sinus bradycardia 43 ND 144 QRS 90 QTC 456) Disposition Clinical Impression: Pancreatitis, Dehydration, Intractable nausea and vomiting, Abdominal pain Disposition: HOME SELF-CARE Instructions (If sedation given, give patient instructions): Acute Nausea and Vomiting (ED), Abdominal Pain (ED) Is patient prescribed a controlled substance at d/c from ED?: No Referrals: Terry Rivera MD [Primary Care Provider] - 1-2 days Time of Disposition: 17:35
[2023-03-26 15:48] LABS: Basophils % (A) 0 %; Eosinophils % (A) 0 %; HCT 43.3 % (34.0-46.0); HGB 14.8 gm/dL (11.4-16.0); Lymphocytes # (A) 0.8 k/uL (1.0-4.8); Lymphocytes % (A) 7 %; MCH 29.6 pg (25.0-35.0); MCHC 34.2 g/dL (31.0-37.0); MCV 86.6 fL (80.0-100.0); Mean Platelet Volume 8.8; Monocytes # (A) 0.2 k/uL (0-1.0); Monocytes % (A) 1 %; Neutrophils # (A) 11.1 k/uL (1.3-7.7); Neutrophils % (A) 91 %; Platelet Count 246 k/uL (150-450); RDW 12.5 % (11.5-15.5); WBC 12.1 k/uL (3.8-10.6)
[2023-03-26 15:59] LABS: ALT 20 U/L (4-34); AST 23 U/L (14-36); African American GFR (CKD) >90 (>60 ml/min/1.73 sqM); Albumin 4.8 g/dL (3.5-5.0); Alkaline Phosphatase 84 U/L (38-126); Anion Gap 13 mmol/L; Blood Urea Nitrogen 11 mg/dL (7-17); Calcium 9.6 mg/dL (8.4-10.2); Carbon Dioxide 21 mmol/L (22-30); Chloride 107 mmol/L (98-107); Glucose 153 mg/dL (74-99); Lipase 590 U/L (23-300); Magnesium 2.1 mg/dL (1.6-2.3); Non-African American GFR(CKD) >90 (>60 ml/min/1.73 sqM); Phosphorus 3.5 mg/dL (2.5-4.5); Sodium 141 mmol/L (137-145); Total Bilirubin 0.5 mg/dL (0.2-1.3); Total Protein 7.6 g/dL (6.3-8.2)
[2023-03-26 16:19] LABS: HCG,Qualitative Serum Not Detected
[2023-03-26 16:24] LABS: Partial Thromboplastin Time 20.9 sec (22.0-30.0)
[2023-03-26] MEDS ORDERED: HYDROmorphone 1 MG/ML 1 ML SYRINGE IVP STA (17:31)
[2023-03-26] MEDS ORDERED: ONDANSETRON 4 MG ODT STARTER PACK 2 TAB BTL PO STA (17:32)
[2023-03-26] MEDS ORDERED: diphenhydrAMINE 50 MG/ML 1 ML VIAL IVP STA (17:32)
[2023-03-26] MEDS ORDERED: traMADol 50 MG STARTER PACK 3 TAB BTL PO STA (17:32)
[2023-03-26 17:39] LABS: Appearance,Urine Clear (Clear); Bilirubin,Urine Negative (Negative); Blood,Urine Negative (Negative); Color,Urine Colorless; Glucose,Urine (UA) Trace (Negative); Ketones,Urine 2+ (Negative); Leukocyte Esterase,Urine Negative (Negative); Nitrite,Urine Negative (Negative); Protein,Urine Negative (Negative); Urobilinogen,Urine <2.0 mg/dL (<2.0)
[2023-03-26 19:36] VITALS: BP 98/62; PULSE 81; RESP 16
== END 2023-03-26 19:35 | disposition home or self-care (01) ==
LOC: EC 14:52
DX: K85.90 Acute pancreatitis without necrosis or infection, unspecified (principal); E86.0 Dehydration; R00.1 Bradycardia, unspecified; F12.90 Cannabis use, unspecified, uncomplicated
CPT/HCPCS: 36415; 93005; 80053; 83605; 83690; 83735; 84100; 84484; 85025; 85610; 85730; 81003; 81025; 84703; 99285; 96374; 96375 ×3; 96361 ×4; J2270; J1200; J2405; J1170; S0119

== ENCOUNTER 2023-03-27 11:35 | Emergency (ER) | payer OTHER ==
[2023-03-27 11:57] VITALS: TEMP 98.3
[2023-03-27] MEDS ORDERED: SODIUM CHLORIDE 0.9% 1,000 ML IV ONE ×2 (12:35→14:26)
[2023-03-27 13:03] LABS: Basophils % (A) 0 %; Eosinophils # (A) 0.1 k/uL (0-0.7); Eosinophils % (A) 0 %; HGB 13.3 gm/dL (11.4-16.0); Lymphocytes # (A) 0.9 k/uL (1.0-4.8); Lymphocytes % (A) 6 %; MCH 29.6 pg (25.0-35.0); MCHC 34.1 g/dL (31.0-37.0); MCV 86.7 fL (80.0-100.0); Mean Platelet Volume 8.6; Monocytes # (A) 0.5 k/uL (0-1.0); Monocytes % (A) 3 %; Neutrophils # (A) 13.5 k/uL (1.3-7.7); Neutrophils % (A) 90 %; Platelet Count 251 k/uL (150-450); RDW 12.5 % (11.5-15.5); WBC 14.9 k/uL (3.8-10.6)
[2023-03-27 13:19] LABS: ALT 18 U/L (4-34); AST 20 U/L (14-36); African American GFR (CKD) >90 (>60 ml/min/1.73 sqM); Albumin 4.6 g/dL (3.5-5.0); Alkaline Phosphatase 75 U/L (38-126); Anion Gap 16 mmol/L; Blood Urea Nitrogen 10 mg/dL (7-17); Calcium 9.2 mg/dL (8.4-10.2); Carbon Dioxide 18 mmol/L (22-30); Chloride 105 mmol/L (98-107); Glucose 133 mg/dL (74-99); Lipase 49 U/L (23-300); Non-African American GFR(CKD) >90 (>60 ml/min/1.73 sqM); Potassium 3.5 mmol/L (3.5-5.1); Sodium 139 mmol/L (137-145); Total Bilirubin 0.7 mg/dL (0.2-1.3); Total Protein 7.2 g/dL (6.3-8.2)
[2023-03-27 13:23] LABS: Appearance,Urine Clear (Clear); Bilirubin,Urine Negative (Negative); Blood,Urine Negative (Negative); Color,Urine Yellow; Glucose,Urine (UA) 1+ (Negative); Leukocyte Esterase,Urine Negative (Negative); Mucus,Urine Many /hpf; Nitrite,Urine Negative (Negative); Protein,Urine 1+ (Negative); RBC,Urine 1 /hpf (0-5); Specific Gravity,Urine 1.038 (1.001-1.035); Squamous Epithelial Cell,Urine 5 /hpf (0-4); Urobilinogen,Urine <2.0 mg/dL (<2.0); WBC,Urine 3 /hpf (0-5)
[2023-03-27] MEDS ORDERED: ONDANSETRON 4 MG/2 ML VIAL IVP STA (13:44)
--- NOTE | 2023-03-27 13:56 | ED ---
General Adult HPI - General Chief complaint: Nausea/Vomiting/Diarrhea Stated complaint: Re-check Time Seen by Provider: 03/27/23 12:25 Source: patient, RN notes reviewed Mode of arrival: ambulatory Limitations: no limitations - History of Present Illness Initial comments: 27-year-old female with a past medical history significant for intractable nausea and vomiting and abdominal pain presents to the emergency department with a chief complaint of nausea and vomiting. Patient reports she was seen and evaluated here yesterday for the same. She reports no improvement of symptoms. She reports that she's been taking Zofran at home for vomiting however has not had much relief. Denies any fevers,, Chest pain or shortness of breath, changes in stool or hematuria. - Related Data Previous Rx's Medication Instructions Recorded Metoclopramide [Reglan] 5 mg PO AC-TID 15 Days #45 tab 02/12/23 Metoclopramide [Reglan] 10 mg PO TID PRN #15 tab 03/27/23 Allergies Allergy/AdvReac Type Severity Reaction Status Date / Time No Known Allergies Allergy Verified 03/27/23 11:52 Review of Systems ROS Statement: Those systems with pertinent positive or pertinent negative responses have been documented in the HPI. ROS Other: All systems not noted in ROS Statement are negative. Past Medical History Past Medical History: GERD/Reflux Additional Past Medical History / Comment(s): MIGRAINES, BACK PAIN. 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 No other history of STDs. History of Any Multi-Drug Resistant Organisms: None Reported Past Surgical History: Cholecystectomy, Hernia Repair Additional Past Surgical History / Comment(s): Hiatal hernia repair. Past Anesthesia/Blood Transfusion Reactions: Motion Sickness Additional Past Anesthesia/Blood Transfusion Reaction / Comment(s): NO ANESTHESIA HX Past Psychological History: Anxiety Smoking Status: Never smoker Past Alcohol Use History: Occasional Past Drug Use History: Marijuana - Past Family History Mother Family Medical History: No Reported History Additional Family Medical History / Comment(s): Maternal grandmother had colon cancer. A maternal great grandmother had breast cancer. Father Family Medical History: Hypertension General Exam - General Exam Comments Initial Comments: General: Alert, in no acute distress Head: atraumatic normocephalic. Eyes PERRL, EOMI intact, mucous membranes moist Respiratory: Lungs clear to auscultation bilaterally Cardiovascular: Rate regular and rhythm Abdominal: Soft without guarding or rebound Extremities: Normal inspection with full range of motion and normal capillary refill Neuroogic: alert and oriented 3, CN II-XII intact, able to ambulate with steady gait Skin: warm dry and intact with normal color Limitations: no limitations Course Vital Signs 03/27/23 11:51 Temperature 98.3 F Pulse Rate 82 Respiratory 16 Rate Blood Pressure 169/89 O2 Sat by Pulse 99 Oximetry - Reevaluation(s) Reevaluation #1: 03/27/23 13:56 Patient reevaluated. Reports symptomatic improvement status post medications. Reevaluation #2: 03/27/23 15:25 Reevaluated. Patient reports resolution of symptoms. Agreeable with the plan for discharge home Medical Decision Making - Medical Decision Making Was pt. sent in by a medical professional or institution (TING Ghosh, SPIKE MACHINE FEEDER, urgent care, hospital, or skilled nursing...) When possible be specific @ -[No] Did you speak to anyone other than the patient for history (EMS, parent, family, police, friend...)? What history was obtained from this source @ -[No] Did you review nursing and triage notes (agree or disagree)? Why? @ -[I reviewed and agree with nursing and triage notes] Were old charts reviewed (outside hosp., previous admission, EMS record, old EKG, old radiological studies, urgent care reports/EKG's, skilled nursing records)? Report findings @ -[No old charts were reviewed] Differential Diagnosis (chest pain, altered mental status, abdominal pain women, abdominal pain men, vaginal bleeding, weakness, fever, dyspnea, syncope, headache, dizziness, GI bleed, back pain, seizure, CVA, palpatations, mental health, musculoskeletal)? @ -[not applicable] EKG interpreted by me (3pts min.). @ -[As above] X-rays interpreted by me (1pt min.). @ -[None done] CT interpreted by me (1pt min.). @ -[None done] U/S interpreted by me (1pt. min.). @ -[None done] What testing was considered but not performed or refused? (CT, X-rays, U/S, labs)? Why? @ -[None] What meds were considered but not given or refused? Why? @ -[None] Did you discuss the management of the patient with other professionals (professionals i.e. , PA, SPIKE MACHINE FEEDER, lab, RT, psych nurse, social services designee, fitter / welder, teacher, customs and immigration officer, returned case inspector)? Give summary @ -[No] Was smoking cessation discussed for >3mins.? @ -[No] Was critical care preformed (if so, how long)? @ -[No] Were there social determinants of health that impacted care today? How? (Homelessness, low income, unemployed, alcoholism, drug addiction, transportation, low edu. Level, literacy, decrease access to med. care, fci, rehab)? @ -[No] Was there de-escalation of care discussed even if they declined (Discuss DNR or withdrawal of care, Hospice)? DNR status @ -[No] What co-morbidities impacted this encounter? (DM, HTN, Smoking, COPD, CAD, Cancer, CVA, ARF, Chemo, Hep., AIDS, mental health diagnosis, sleep apnea, morbid obesity)? @ -[None] Was patient admitted / discharged? Hospital course, mention meds given and route, prescriptions, significant lab abnormalities, going to OR and other pertinent info. @ Discharge. Patient presents to the emergency department with a chief complaint with nausea and vomiting. She had a thorough history and physical exam performed. Vital signs are stable. Patient afebrile. Patient did not have any episodes of vomiting while in the ED. Patient was provided Zofran, 2 L IV fluids for symptomatic improvement. Laboratory studies improved from 03/27/2023. I discussed the results in detail with the patient verbalized understanding and all questions were addressed. She is agreeable with the plan for discharge home. Return precautions discussed at length. Case discussed with Dr. hartley, ED attending who agrees with plan of care Undiagnosed new problem with uncertain prognosis? @ -[No] Drug Therapy requiring intensive monitoring for toxicity (Heparin, Nitro, Insulin, Cardizem)? @ -[No] Were any procedures done? @ -[No] Diagnosis/symptom? @ -Nausea and Vomiting Acute, or Chronic, or Acute on Chronic? @ -Acute Uncomplicated (without systemic symptoms) or Complicated (systemic symptoms)? @ -Uncomplicated Side effects of treatment? @ -[No] Exacerbation, Progression, or Severe Exacerbation? @ -[No] Poses a threat to life or bodily function? How? (Chest pain, [place], [place], pneumonia, PE, COPD, DKA, ARF, appy, cholecystitis, CVA, Diverticulitis, Homicidal, Suicidal, threat to staff... and all critical care pts) @ -Low likelihood - Lab Data Result diagrams: 03/27/23 12:52 03/27/23 12:52 Lab Results 03/27/23 03/27/23 03/27/23 Range/Units 12:52 12:52 12:52 WBC 14.9 H (3.8-10.6) k/uL RBC 4.50 (3.80-5.40) m/uL Hgb 13.3 (11.4-16.0) gm/dL Hct 39.0 (34.0-46.0) % MCV 86.7 (80.0-100.0) fL MCH 29.6 (25.0-35.0) pg MCHC 34.1 (31.0-37.0) g/dL RDW 12.5 (11.5-15.5) % Plt Count 251 (150-450) k/uL MPV 8.6 Neutrophils % 90 % Lymphocytes % 6 % Monocytes % 3 % Eosinophils % 0 % Basophils % 0 % Neutrophils # 13.5 H (1.3-7.7) k/uL Lymphocytes # 0.9 L (1.0-4.8) k/uL Monocytes # 0.5 (0-1.0) k/uL Eosinophils # 0.1 (0-0.7) k/uL Basophils # 0.0 (0-0.2) k/uL Sodium (137-145) mmol/L Potassium (3.5-5.1) mmol/L Chloride (98-107) mmol/L Carbon Dioxide (22-30) mmol/L Anion Gap mmol/L BUN (7-17) mg/dL Creatinine (0.52-1.04) mg/dL Est GFR (CKD-EPI)AfAm (>60 ml/min/1.73 sqM) Est GFR (CKD-EPI)NonAf (>60 ml/min/1.73 sqM) Glucose (74-99) mg/dL Calcium (8.4-10.2) mg/dL Total Bilirubin (0.2-1.3) mg/dL AST (14-36) U/L ALT (4-34) U/L Alkaline Phosphatase (38-126) U/L Total Protein (6.3-8.2) g/dL Albumin (3.5-5.0) g/dL Lipase (23-300) U/L Urine Color Yellow Urine Appearance Clear (Clear) Urine pH 6.0 (5.0-8.0) Ur Specific [place] 1.038 H (1.001-1.035) Urine Protein 1+ H (Negative) Urine Glucose (UA) 1+ H (Negative) Urine Ketones 4+ H (Negative) Urine Blood Negative (Negative) Urine Nitrite Negative (Negative) Urine Bilirubin Negative (Negative) Urine Urobilinogen <2.0 (<2.0) mg/dL Ur Leukocyte Esterase Negative (Negative) Urine RBC 1 (0-5) /hpf Urine WBC 3 (0-5) /hpf Ur Squamous Epith Cells 5 H (0-4) /hpf Urine Mucus Many H (None) /hpf Urine HCG, Qual Not Detected (Not Detectd) 03/27/23 Range/Units 12:52 WBC (3.8-10.6) k/uL RBC (3.80-5.40) m/uL Hgb (11.4-16.0) gm/dL Hct (34.0-46.0) % MCV (80.0-100.0) fL MCH (25.0-35.0) pg MCHC (31.0-37.0) g/dL RDW (11.5-15.5) % Plt Count (150-450) k/uL MPV Neutrophils % % Lymphocytes % % Monocytes % % Eosinophils % % Basophils % % Neutrophils # (1.3-7.7) k/uL Lymphocytes # (1.0-4.8) k/uL Monocytes # (0-1.0) k/uL Eosinophils # (0-0.7) k/uL Basophils # (0-0.2) k/uL Sodium 139 (137-145) mmol/L Potassium 3.5 (3.5-5.1) mmol/L Chloride 105 (98-107) mmol/L Carbon Dioxide 18 L (22-30) mmol/L Anion Gap 16 mmol/L BUN 10 (7-17) mg/dL Creatinine 0.49 L (0.52-1.04) mg/dL Est GFR (CKD-EPI)AfAm >90 (>60 ml/min/1.73 sqM) Est GFR (CKD-EPI)NonAf >90 (>60 ml/min/1.73 sqM) Glucose 133 H (74-99) mg/dL Calcium 9.2 (8.4-10.2) mg/dL Total Bilirubin 0.7 (0.2-1.3) mg/dL AST 20 (14-36) U/L ALT 18 (4-34) U/L Alkaline Phosphatase 75 (38-126) U/L Total Protein 7.2 (6.3-8.2) g/dL Albumin 4.6 (3.5-5.0) g/dL Lipase 49 (23-300) U/L Urine Color Urine Appearance (Clear) Urine pH (5.0-8.0) Ur Specific [place] (1.001-1.035) Urine Protein (Negative) Urine Glucose (UA) (Negative) Urine Ketones (Negative) Urine Blood (Negative) Urine Nitrite (Negative) Urine Bilirubin (Negative) Urine Urobilinogen (<2.0) mg/dL Ur Leukocyte Esterase (Negative) Urine RBC (0-5) /hpf Urine WBC (0-5) /hpf Ur Squamous Epith Cells (0-4) /hpf Urine Mucus (None) /hpf Urine HCG, Qual (Not Detectd) Disposition Clinical Impression: Intractable nausea and vomiting Disposition: HOME SELF-CARE Condition: Stable Instructions (If sedation given, give patient instructions): Acute Nausea and Vomiting (ED) Additional Instructions: Please monitor your symptoms closely. Please return to the nearest emergency department if symptoms persist Prescriptions: Metoclopramide [Reglan] 10 mg PO TID PRN #15 tab PRN Reason: Nausea Is patient prescribed a controlled substance at d/c from ED?: No Referrals: Terry Rivera MD [Primary Care Provider] - 1-2 days Time of Disposition: 15:23
[2023-03-27 14:21] LABS: Ketones,Urine 4+ (Negative)
[2023-03-27] MEDS ORDERED: METOCLOPRAMIDE 5 MG/ML 2 ML VIAL IVP STA (15:44)
[2023-03-27] MEDS ORDERED: KETOROLAC 15 MG/ML 1 ML VIAL IVP STA (15:44)
[2023-03-27] MEDS ORDERED: ONDANSETRON 4 MG ODT STARTER PACK 2 TAB BTL PO STA (15:44)
[2023-03-27 16:10] VITALS: BP 122/87; PULSE 78; RESP 18
== END 2023-03-27 15:53 | disposition home or self-care (01) ==
LOC: EC 11:35
DX: R11.2 Nausea with vomiting, unspecified (principal); Z86.59 Personal history of other mental and behavioral disorders; F12.90 Cannabis use, unspecified, uncomplicated
CPT/HCPCS: 36415; 80053; 83690; 85025; 81001; 81025; 99284; 96374; 96375 ×2; 96361 ×2; J2765; J2405; J1885; S0119

== ENCOUNTER 2023-03-28 06:17 | Observation (INO) | payer OTHER ==
--- NOTE | 2023-03-28 06:40 | ED ---
Abdominal Pain HPI - General Chief Complaint: Abdominal Pain Stated Complaint: N/V Time Seen by Provider: 03/28/23 06:39 Source: patient, RN notes reviewed Mode of arrival: ambulatory Limitations: no limitations - History of Present Illness Initial Comments: 27-year-old female presents emergency department for nausea and vomiting. Patient has been seen several times last few days for similar complaints. This is an ongoing chronic issue. She does admit to marijuana use. Patient has recurrent pancreatitis. Patient states that she continues to have persistent bilious emesis. Patient with diffuse abdominal pain that he localizes abdominal pain. - Related Data Previous Rx's Medication Instructions Recorded Metoclopramide [Reglan] 5 mg PO AC-TID 15 Days #45 tab 02/12/23 Metoclopramide [Reglan] 10 mg PO TID PRN #15 tab 03/27/23 Allergies Allergy/AdvReac Type Severity Reaction Status Date / Time No Known Allergies Allergy Verified 03/28/23 06:24 Review of Systems ROS Statement: Those systems with pertinent positive or pertinent negative responses have been documented in the HPI. ROS Other: All systems not noted in ROS Statement are negative. Past Medical History Past Medical History: GERD/Reflux Additional Past Medical History / Comment(s): MIGRAINES, BACK PAIN. 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 No other history of STDs. History of Any Multi-Drug Resistant Organisms: None Reported Past Surgical History: Cholecystectomy, Hernia Repair Additional Past Surgical History / Comment(s): Hiatal hernia repair. Past Anesthesia/Blood Transfusion Reactions: Motion Sickness Additional Past Anesthesia/Blood Transfusion Reaction / Comment(s): NO ANESTHESIA HX Past Psychological History: Anxiety Smoking Status: Never smoker Past Alcohol Use History: Occasional Past Drug Use History: Marijuana - Past Family History Mother Family Medical History: No Reported History Additional Family Medical History / Comment(s): Maternal grandmother had colon cancer. A maternal great grandmother had breast cancer. Father Family Medical History: Hypertension General Exam - General Exam Comments Initial Comments: Visual Physical Exam Vital signs reviewed General: Well-appearing, nontoxic, no acute distress. Head: Normocephalic, atraumatic Eyes: PERRLA, EOMI ENT: Airway patent Chest: Nonlabored breathing Skin: No visual rash, normal skin tone Neuro: Alert and oriented 3 Musculoskeletal: No gross abnormalities Limitations: no limitations General appearance: alert, in no apparent distress Head exam: Present: atraumatic, normocephalic, normal inspection Eye exam: Present: normal appearance, PERRL, EOMI. Absent: scleral icterus, conjunctival injection, periorbital swelling Neck exam: Present: normal inspection, full ROM. Absent: tenderness, meningismus, lymphadenopathy Respiratory exam: Present: normal lung sounds bilaterally. Absent: respiratory distress, wheezes, rales, rhonchi, stridor Cardiovascular Exam: Present: regular rate, normal rhythm, normal heart sounds. Absent: systolic murmur, diastolic murmur, rubs, gallop, clicks GI/Abdominal exam: Present: soft, tenderness, normal bowel sounds. Absent: distended, guarding, rebound, rigid Course Vital Signs 03/28/23 06:22 Temperature 99.2 F Pulse Rate 57 L Respiratory 18 Rate Blood Pressure 138/86 O2 Sat by Pulse 99 Oximetry Medical Decision Making - Medical Decision Making I completed the quick note portion of this chart signed Sesar Harris PA-C Was pt. sent in by a medical professional or institution ([facility]osh, REPORT WRITER, urgent care, hospital, or fdc...) When possible be specific @ -No Did you speak to anyone other than the patient for history (EMS, parent, family, police, friend...)? What history was obtained from this source @ -No Did you review nursing and triage notes (agree or disagree)? Why? @ -I reviewed and agree with nursing and triage notes Were old charts reviewed (outside hosp., previous admission, EMS record, old EKG, old radiological studies, urgent care reports/EKG's, fdc records)? Report findings @ -[Reviewed prior charting, labs and imaging Differential Diagnosis (chest pain, altered mental status, abdominal pain women, abdominal pain men, vaginal bleeding, weakness, fever, dyspnea, syncope, headache, dizziness, GI bleed, back pain, seizure, CVA, palpatations, mental health, musculoskeletal)? @ -[Differential Abdominal Pain Women: Appendicitis, Cholecystitis, diverticulosis, ischemic bowel, pancreatitis, hepatitis, UTI, gastroenteritis, AAA, incarcerated hernia, bowel obstruction, constipation, inflammatory bowel, hepatitis, peptic ulcer disease, splenic infarction, perforated viscus, vulvitis, ovarian torsion, PID, kidney stone, placenta abruption, this is not meant to be an all-inclusive list EKG performed (3pts min.). @ -Non- X-rays interpreted by me (1pt min.). @ -None done CT interpreted by me (1pt min.). @ -None done U/S interpreted by me (1pt. min.). @ -None done What testing was considered but not performed or refused? (CT, X-rays, U/S, labs)? Why? @ -None What meds were considered but not given or refused? Why? @ -None Did you discuss the management of the patient with other professionals (professionals i.e. DrSimi, PA, REPORT WRITER, lab, RT, psych nurse, director social welfare, bible reader, teacher, chief contract officer, director case management)? Give summary @ -[Dr. Knutson for admission secondary to acute pancreatitis, repeat visits for congenital nausea vomiting. Was smoking cessation discussed for >3mins.? @ -No Was critical care preformed (if so, how long)? @ -No Were there social determinants of health that impacted care today? How? (Homelessness, low income, unemployed, alcoholism, drug addiction, transportation, low edu. Level, literacy, decrease access to med. care, longterm, rehab)? @ -No Was there de-escalation of care discussed even if they declined (Discuss DNR or withdrawal of care, Hospice)? DNR status @ -No What co-morbidities impacted this encounter? (DM, HTN, Smoking, COPD, CAD, Cancer, CVA, ARF, Chemo, Hep., AIDS, mental health diagnosis, sleep apnea, morbid obesity)? @ -None Was patient admitted / discharged? Hospital course, mention meds given and route, prescriptions, significant lab abnormalities, going to OR and other pertinent info. @ -Admitted patient has acute pancreatitis patient has had 3 ER visits recently for gentle nausea vomiting. This is a recurrent issue secondary to marijuana use. Patiently admitted for IV fluid hydration, antiemetics. Undiagnosed new problem with uncertain prognosis? @ -No Drug Therapy requiring intensive monitoring for toxicity (Heparin, Nitro, Insulin, Cardizem)? @ -No Were any procedures done? @ -No Diagnosis/symptom? @ -Intractable nausea vomiting, acute pancreatitis Acute, or Chronic, or Acute on Chronic? @ -[Acute Uncomplicated (without systemic symptoms) or Complicated (systemic symptoms)? @ -.sierra] Side effects of treatment? [No] Exacerbation, Progression, or Severe Exacerbation? [No] Poses a threat to life or bodily function? How? (Chest pain, [place], [place], pneumonia, PE, COPD, DKA, ARF, appy, cholecystitis, CVA, Diverticulitis, Homicidal, Suicidal, threat to staff... and all critical care pts) [No] - Lab Data Result diagrams: 03/28/23 06:39 03/28/23 06:39 Lab Results 03/28/23 03/28/23 03/28/23 Range/Units 06:39 06:39 06:39 WBC 8.3 (3.8-10.6) k/uL RBC 4.30 (3.80-5.40) m/uL Hgb 12.7 (11.4-16.0) gm/dL Hct 37.0 (34.0-46.0) % MCV 86.0 (80.0-100.0) fL MCH 29.6 (25.0-35.0) pg MCHC 34.4 (31.0-37.0) g/dL RDW 12.5 (11.5-15.5) % Plt Count 206 (150-450) k/uL MPV 8.9 Neutrophils % 70 % Lymphocytes % 23 % Monocytes % 6 % Eosinophils % 0 % Basophils % 0 % Neutrophils # 5.8 (1.3-7.7) k/uL Lymphocytes # 1.9 (1.0-4.8) k/uL Monocytes # 0.5 (0-1.0) k/uL Eosinophils # 0.0 (0-0.7) k/uL Basophils # 0.0 (0-0.2) k/uL Sodium 136 L (137-145) mmol/L Potassium 3.0 L (3.5-5.1) mmol/L Chloride 106 (98-107) mmol/L Carbon Dioxide 16 L (22-30) mmol/L Anion Gap 14 mmol/L BUN 8 (7-17) mg/dL Creatinine 0.48 L (0.52-1.04) mg/dL Est GFR (CKD-EPI)AfAm >90 (>60 ml/min/1.73 sqM) Est GFR (CKD-EPI)NonAf >90 (>60 ml/min/1.73 sqM) Glucose 105 H (74-99) mg/dL Calcium 9.0 (8.4-10.2) mg/dL Magnesium 2.0 (1.6-2.3) mg/dL Total Bilirubin 0.8 (0.2-1.3) mg/dL AST 20 (14-36) U/L ALT 15 (4-34) U/L Alkaline Phosphatase 69 (38-126) U/L Total Protein 6.7 (6.3-8.2) g/dL Albumin 4.2 (3.5-5.0) g/dL Lipase 1120 H (23-300) U/L Urine Color Yellow Urine Appearance Cloudy H (Clear) Urine pH 6.5 (5.0-8.0) Ur Specific [place] 1.030 (1.001-1.035) Urine Protein Trace H (Negative) Urine Glucose (UA) Trace H (Negative) Urine Ketones 4+ H (Negative) Urine Blood Negative (Negative) Urine Nitrite Negative (Negative) Urine Bilirubin Negative (Negative) Urine Urobilinogen 3.0 (<2.0) mg/dL Ur Leukocyte Esterase Negative (Negative) Urine WBC 3 (0-5) /hpf Ur Squamous Epith Cells 14 H (0-4) /hpf Urine Mucus Many H (None) /hpf Disposition Clinical Impression: Pancreatitis, Dehydration, Intractable nausea and vomiting, Hypokalemia Disposition: ADMITTED IP TO THIS [facility] Referrals: Terry Rivera MD [Primary Care Provider] - 1-2 days Time of Disposition: 07:54
[2023-03-28 07:00] LABS: Basophils % (A) 0 %; Eosinophils % (A) 0 %; HGB 12.7 gm/dL (11.4-16.0); Lymphocytes # (A) 1.9 k/uL (1.0-4.8); Lymphocytes % (A) 23 %; MCH 29.6 pg (25.0-35.0); MCHC 34.4 g/dL (31.0-37.0); Mean Platelet Volume 8.9; Monocytes # (A) 0.5 k/uL (0-1.0); Monocytes % (A) 6 %; Neutrophils # (A) 5.8 k/uL (1.3-7.7); Neutrophils % (A) 70 %; Platelet Count 206 k/uL (150-450); RDW 12.5 % (11.5-15.5); WBC 8.3 k/uL (3.8-10.6)
[2023-03-28 07:23] LABS: Appearance,Urine Cloudy (Clear); Bilirubin,Urine Negative (Negative); Blood,Urine Negative (Negative); Color,Urine Yellow; Glucose,Urine (UA) Trace (Negative); Ketones,Urine 4+ (Negative); Leukocyte Esterase,Urine Negative (Negative); Mucus,Urine Many /hpf; Nitrite,Urine Negative (Negative); PH, Urine 6.5 (5.0-8.0); Protein,Urine Trace (Negative); Squamous Epithelial Cell,Urine 14 /hpf (0-4); WBC,Urine 3 /hpf (0-5)
[2023-03-28 07:33] LABS: ALT 15 U/L (4-34); AST 20 U/L (14-36); African American GFR (CKD) >90 (>60 ml/min/1.73 sqM); Albumin 4.2 g/dL (3.5-5.0); Alkaline Phosphatase 69 U/L (38-126); Anion Gap 14 mmol/L; Blood Urea Nitrogen 8 mg/dL (7-17); Carbon Dioxide 16 mmol/L (22-30); Chloride 106 mmol/L (98-107); Glucose 105 mg/dL (74-99); Lipase 1120 U/L (23-300); Non-African American GFR(CKD) >90 (>60 ml/min/1.73 sqM); Sodium 136 mmol/L (137-145); Total Bilirubin 0.8 mg/dL (0.2-1.3); Total Protein 6.7 g/dL (6.3-8.2)
[2023-03-28] MEDS ORDERED: SODIUM CHLORIDE 0.9% 2,000 ML IV ONE (07:56)
[2023-03-28] MEDS ORDERED: POTASSIUM CHLORIDE 10 MEQ in WATER FOR INJECTION 1 100ML.BAG IVPB STA (07:56)
[2023-03-28] MEDS ORDERED: NALOXONE 0.4 MG/ML 1 ML VIAL IV PRN (07:56)
[2023-03-28] MEDS ORDERED: droPERidol 5 MG/2 ML VIAL IVP ONE (07:57)
[2023-03-28] MEDS ORDERED: SODIUM CHLORIDE 0.9% 1,000 ML IV SCH (08:00)
[2023-03-28] MEDS: ONDANSETRON 4 MG/2 ML VIAL IVP PRN ×2 (08:51→16:21)
[2023-03-28] MEDS: HYDROmorphone 0.5 MG/0.5 ML SYRINGE IVP PRN ×3 (08:52→22:34)
[2023-03-28] MEDS: ENOXAPARIN 40 MG/0.4 ML SYRINGE SQ SCH (12:40)
[2023-03-28] MEDS ORDERED: MELATONIN 3 MG TABLET PO PRN (12:58)
[2023-03-28] MEDS ORDERED: CALCIUM CARBONATE 500 MG CHEWABLE PO PRN (12:58)
[2023-03-28] MEDS ORDERED: ACETAMINOPHEN TAB 325 MG TAB PO PRN (12:58)
[2023-03-28] MEDS ORDERED: ALPRAZolam 0.25 MG TAB PO PRN (12:58)
[2023-03-28] MEDS: LACTATED RINGERS 1,000 ML IV SCH ×2 (13:52→22:35)
--- NOTE | 2023-03-28 15:05 | P.HPIM ---
History of Present Illness H&P Date: 03/28/23 Chief Complaint: Nausea vomiting This is a 27-year-old patient who follows with Dr. Terry Rivera. I'm rounding for Dr. Terry Rivera. Patient been having episodes of vomiting about once a month averaging for about a year. Does not have a diagnosis. According to the patient. Has had pancreatitis diagnosis previously. This occasion presents with 3 days of nausea vomiting. No fever no chills. Poor appetite. No fever no chills. Tired. Some epigastric pain. GI services not available in the hospital. Review of systems: GEN.: Tired EYES: None HEENT: None NECK: None RESPIRATORY: None CARDIOVASCULAR: None GASTROINTESTINAL: As above GENITOURINARY: None MUSCULOSKELETAL: None LYMPHATICS: None HEMATOLOGICAL: None PSYCHIATRY: Anxious NEUROLOGICAL: None Past medical history to include: GERD, migraine, genital HSV. Anxiety. Social history: Patient smoked for 6 years stopped at the age of 21. Patient doesn't have marijuana. Works at [employer]. Lives with her mother. Physical examination: VITAL SIGNS: 99.2, 57, 18, 138/86, 99% room air GENERAL: BMI 25.4, laying in bed tired. EYES: Pupils equal. Conjunctiva normal. HEENT: External appearance of nose and ears normal, oral cavity grossly normal. NECK: JVD not raised; masses not palpable. HEART: First and second heart sounds are normal; no edema. LUNGS: Respiratory rate normal; clear to auscultation. ABDOMEN: Soft, some epigastric tenderness, liver spleen not palpable, no masses palpable. PSYCH: [Alert and oriented x3; mood and affect anxious l. MUSCULOSKELETAL:No Clubbing/cyanosis;muscles-grossly intact NEUROLOGICAL: Cranial nerves grossly intact; no facial asymmetry, power and sensation grossly intact. LYMPHATICS: No lymph nodes palpable in the axilla and neck INVESTIGATIONS, reviewed in the clinical context: White count 8.3 hemoglobin 12.7 platelets 206 potassium 3 BUN 8 creatinine 0.48 bicarbonate 16 Lipase 1120 Prior studies: Computed tomography scan abdomen and pelvis [02/10/2023] small to moderate size hiatal hernia. Colonic diverticulosis. Assessment and plan: -Acute recurrent pancreatitis. Patient initially made nothing by mouth. IV fluids. GI services are not available in the hospital. -Chronic metabolic use in the from of vaping -Hypokalemia Replace potassium -Mild metabolic acidosis with bicarb of 16. Bicarbonate drip IV Past Medical History Past Medical History: GERD/Reflux Additional Past Medical History / Comment(s): MIGRAINES, BACK PAIN. 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 No other history of STDs. History of Any Multi-Drug Resistant Organisms: None Reported Past Surgical History: Cholecystectomy, Hernia Repair Additional Past Surgical History / Comment(s): Hiatal hernia repair. Past Anesthesia/Blood Transfusion Reactions: Motion Sickness Additional Past Anesthesia/Blood Transfusion Reaction / Comment(s): NO ANESTHESIA HX Past Psychological History: Anxiety Smoking Status: Never smoker Past Alcohol Use History: Occasional Past Drug Use History: Marijuana - Past Family History Mother Family Medical History: No Reported History Additional Family Medical History / Comment(s): Maternal grandmother had colon cancer. A maternal great grandmother had breast cancer. Father Family Medical History: Hypertension Medications and Allergies Home Medications Medication Instructions Recorded Confirmed Type Metoclopramide [Reglan] 10 mg PO TID PRN #15 tab 03/27/23 03/28/23 Rx Allergies Allergy/AdvReac Type Severity Reaction Status Date / Time No Known Allergies Allergy Verified 03/28/23 08:33 Physical Exam Vitals: Vital Signs Temp Pulse Resp BP Pulse Ox 03/28/23 06:22 99.2 F 57 L 18 138/86 99 Intake and Output 03/27/23 03/28/23 03/28/23 22:59 06:59 14:59 Other: Weight 58.967 kg Results CBC & Chem 7: 03/28/23 06:39 03/28/23 06:39 Labs: Abnormal Lab Results - Last 24 Hours (Table) 03/28/23 03/28/23 Range/Units 06:39 06:39 Sodium 136 L (137-145) mmol/L Potassium 3.0 L (3.5-5.1) mmol/L Carbon Dioxide 16 L (22-30) mmol/L Creatinine 0.48 L (0.52-1.04) mg/dL Glucose 105 H (74-99) mg/dL Lipase 1120 H (23-300) U/L Urine Appearance Cloudy H (Clear) Urine Protein Trace H (Negative) Urine Glucose (UA) Trace H (Negative) Urine Ketones 4+ H (Negative) Ur Squamous Epith Cells 14 H (0-4) /hpf Urine Mucus Many H (None) /hpf
[2023-03-28] MEDS: DEXTROSE 5% IN WATER 1,000 ML with SODIUM BICARB (1 MEQ/ML) 150 ML IV SCH (17:13)
[2023-03-29] MEDS: DEXTROSE 5% IN WATER 1,000 ML with SODIUM BICARB (1 MEQ/ML) 150 ML IV SCH ×2 (00:29→09:30)
[2023-03-29] MEDS: ONDANSETRON 4 MG/2 ML VIAL IVP PRN ×3 (00:29→17:08)
[2023-03-29] MEDS: HYDROmorphone 0.5 MG/0.5 ML SYRINGE IVP PRN ×6 (02:07→20:57)
[2023-03-29] MEDS: LACTATED RINGERS 1,000 ML IV SCH ×3 (06:09→20:50)
[2023-03-29 07:23] LABS: African American GFR (CKD) >90 (>60 ml/min/1.73 sqM); Anion Gap 12 mmol/L; Blood Urea Nitrogen 3 mg/dL (7-17); Calcium 8.6 mg/dL (8.4-10.2); Carbon Dioxide 23 mmol/L (22-30); Chloride 99 mmol/L (98-107); Glucose 108 mg/dL (74-99); Lipase 1374 U/L (23-300); Non-African American GFR(CKD) >90 (>60 ml/min/1.73 sqM); Potassium 2.8 mmol/L (3.5-5.1); Sodium 134 mmol/L (137-145)
[2023-03-29] MEDS: ENOXAPARIN 40 MG/0.4 ML SYRINGE SQ SCH (09:30)
[2023-03-29] MEDS: POTASSIUM CHLORIDE ER 20 MEQ TAB.ER PO SCH ×3 (12:52→20:04)
[2023-03-29] MEDS ORDERED: Potassium Replacement Protocol 1 EACH MISC MISCELLANE PRN (15:28)
--- NOTE | 2023-03-29 20:44 | P.PN ---
Progress Note - Text Progress Note Date: 03/29/23 Chief Complaint: Nausea vomiting This is a 27-year-old patient who follows with Dr. Terry Rivera. I'm rounding for Dr. Terry Rivera. Patient been having episodes of vomiting about once a month averaging for about a year. Does not have a diagnosis. According to the patient. Has had pancreatitis diagnosis previously. This occasion presents with 3 days of nausea vomiting. No fever no chills. Poor appetite. No fever no chills. Tired. Some epigastric pain. GI services not available in the hospital. 03/29/2023: Still having abdominal pain. Nausea. Unable to keep anything down. Acidosis corrected. Change IV fluids to lactated Ringer's from bicarbonate dr camp. Active Medications Acetaminophen (Acetaminophen Tab 325 Mg Tab) 650 mg PO Q6HR PRN PRN Reason: Mild Pain or Fever > 100.5 Alprazolam (Alprazolam 0.25 Mg Tab) 0.25 mg PO Q6HR PRN PRN Reason: Anxiety Calcium Carbonate/Glycine (Calcium Carbonate 500 Mg Chewable) 1,000 mg PO Q4HR PRN PRN Reason: Dyspepsia Enoxaparin Sodium (Enoxaparin 40 Mg/0.4 Ml Syringe) 40 mg SQ DAILY [facility] Last Admin: 03/29/23 09:30 Dose: Not Given Hydromorphone HCl (Hydromorphone 0.5 Mg/0.5 Ml Syringe) 0.5 mg IVP Q3HR PRN PRN Reason: Moderate Pain (Scale 4 to 6) Last Admin: 03/29/23 16:41 Dose: 0.5 mg Lactated Ringer's (Lactated Ringers) 1,000 mls @ 130 mls/hr IV .Q7H42M [facility] Last Admin: 03/29/23 13:11 Dose: Not Given Potassium Chloride 10 meq/ IV (Solution) 100 mls @ 100 mls/hr IVPB Q1HR [facility] Stop: 03/30/23 02:59 Melatonin (Melatonin 3 Mg Tablet) 3 mg PO HS PRN PRN Reason: Insomnia Miscellaneous Information (Potassium Replacement Protocol 1 Each Misc) 1 each MISCELLANE DAILY PRN; Protocol PRN Reason: Per Protocol Naloxone HCl (Naloxone 0.4 Mg/Ml 1 Ml Vial) 0.2 mg IV Q2M PRN PRN Reason: Opioid Reversal Ondansetron HCl (Ondansetron 4 Mg/2 Ml Vial) 4 mg IVP Q8HR PRN PRN Reason: Nausea And Vomiting Last Admin: 03/29/23 17:08 Dose: 4 mg Past medical history to include: GERD, migraine, genital HSV. Anxiety. Social history: Patient smoked for 6 years stopped at the age of 21. Patient doesn't have marijuana. Works at [employer]. Lives with her mother. Physical examination: VITAL SIGNS: At 8.2, 58, 14, 103 with 61, 99% room air GENERAL: BMI 25.4, laying in bed tired. EYES: Pupils equal. Conjunctiva normal. HEENT: External appearance of nose and ears normal, oral cavity grossly normal. NECK: JVD not raised; masses not palpable. HEART: First and second heart sounds are normal; no edema. LUNGS: Respiratory rate normal; clear to auscultation. ABDOMEN: Soft, epigastric tenderness, liver spleen not palpable, no masses palpable. PSYCH: [Alert and oriented x3; mood and affect anxious l. MUSCULOSKELETAL:No Clubbing/cyanosis;muscles-grossly intact INVESTIGATIONS, reviewed in the clinical context: March 29: Potassium 2.8 creatinine 0.39 lipase 1374 White count 8.3 hemoglobin 12.7 platelets 206 potassium 3 BUN 8 creatinine 0.48 bicarbonate 16 Lipase 1120 Prior studies: Computed tomography scan abdomen and pelvis [02/10/2023] small to moderate size hiatal hernia. Colonic diverticulosis. Assessment and plan: -Acute recurrent pancreatitis.: Slow to respond Not able to keep anything down. Lipase remains elevated. Patient initially made nothing by mouth. IV fluids. GI services are not available in the hospital. -Chronic nicotine use in the from of vaping -Severe Hypokalemia Not able to tolerate by mouth daily give IV. -Mild metabolic acidosis with bicarb of 16. Oral corrected Bicarbonate drip Replace potassium. Change IV fluids to lactated Ringer's.
[2023-03-29] MEDS: POTASSIUM CHLORIDE 10 MEQ in WATER FOR INJECTION 1 100ML.BAG IVPB SCH ×3 (20:50→23:50)
[2023-03-30] MEDS: ONDANSETRON 4 MG/2 ML VIAL IVP PRN ×2 (00:38→08:55)
[2023-03-30] MEDS: POTASSIUM CHLORIDE 10 MEQ in WATER FOR INJECTION 1 100ML.BAG IVPB SCH ×3 (00:55→03:57)
[2023-03-30] MEDS: HYDROmorphone 0.5 MG/0.5 ML SYRINGE IVP PRN ×3 (00:55→09:03)
[2023-03-30] MEDS: LACTATED RINGERS 1,000 ML IV SCH ×2 (05:26→12:59)
[2023-03-30] MEDS: ENOXAPARIN 40 MG/0.4 ML SYRINGE SQ SCH (07:44)
[2023-03-30 08:07] VITALS: RESP 16
[2023-03-30 08:43] LABS: Blood Urea Nitrogen 5.1 mg/dL (9.0-27.0); Carbon Dioxide 22.3 mmol/L (21.6-31.8); Chloride 100 mmol/L (96-109); Chol/HDL Ratio 2.48 Ratio; Glucose 93 mg/dL (70-110); Lipase 267 U/L (14-63); Potassium 3.9 mmol/L (3.5-5.5); Sodium 136 mmol/L (135-145); VLDL Calculation 13.28 mg/dL (5.00-40.00)
[2023-03-30 15:03] VITALS: BP 118/78; PULSE 57; TEMP 98
--- NOTE | 2023-03-30 18:58 | P.DS ---
Providers Date of admission: 03/28/23 08:55 Expected date of discharge: 03/30/23 Attending physician: Terry Rivera [facility] Course: Chief Complaint: Nausea vomiting This is a 27-year-old patient who follows with Dr. Terry Rivera. I'm rounding for Dr. Terry Rivera. Patient been having episodes of vomiting about once a month averaging for about a year. Does not have a diagnosis. According to the patient. Has had pancreatitis diagnosis previously. This occasion presents with 3 days of nausea vomiting. No fever no chills. Poor appetite. No fever no chills. Tired. Some epigastric pain. GI services not available in the hospital. 03/29/2023: Still having abdominal pain. Nausea. Unable to keep anything down. Acidosis corrected. Change IV fluids to lactated Ringer's from bicarbonate drip. 03/30/2023: Doing much better today. Did ambulate in the hallway. No further nausea. No abdominal pain. His lipase is come down nicely. Patient's partner the bedside. Did tolerate his supper. Patient to follow-up with Dr. Joanna Osorio upon discharge. Low-fat soft bland diet. Past medical history to include: GERD, migraine, genital HSV. Anxiety. Social history: Patient smoked for 6 years stopped at the age of 21. Patient doesn't have marijuana. Works at [employer]. Lives with her mother. Physical examination: VITAL SIGNS: 98, 57, 16, 118/78, 99% room air GENERAL: He went to bed, comfortable EYES: Pupils equal. Conjunctiva normal. HEENT: External appearance of nose and ears normal, oral cavity grossly normal. NECK: JVD not raised; masses not palpable. HEART: First and second heart sounds are normal; no edema. LUNGS: Respiratory rate normal; clear to auscultation. ABDOMEN: Soft, no tenderness, liver spleen not palpable, no masses palpable. PSYCH: [Alert and oriented x3; mood and affect normal MUSCULOSKELETAL:No Clubbing/cyanosis;muscles-grossly intact INVESTIGATIONS, reviewed in the clinical context: March 22: Potassium 3.9 lipase 267 March 29: Potassium 2.8 creatinine 0.39 lipase 1374 White count 8.3 hemoglobin 12.7 platelets 206 potassium 3 BUN 8 creatinine 0.48 bicarbonate 16 Lipase 1120 Prior studies: Computed tomography scan abdomen and pelvis [02/10/2023] small to moderate size hiatal hernia. Colonic diverticulosis. Assessment and plan: -Acute recurrent pancreatitis.: Improved Reading soft bland diet. Discharged on low-fat soft bland diet. GI services are not available in the hospital. Follow-up with Dr. Joanna Osorio outpatient -Chronic nicotine use in the from of vaping -Severe Hypokalemia: Corrected -Mild metabolic acidosis with bicarb of 16. Oral corrected Bicarbonate drip Disposition: Home Plan - Discharge Summary New Discharge Prescriptions: Continue Metoclopramide [Reglan] 10 mg PO TID PRN #15 tab PRN Reason: Nausea Discharge Medication List Metoclopramide [Reglan] 10 mg PO TID PRN #15 tab 03/27/23 [Rx] Follow up Appointment(s)/Referral(s): Trery Rivera MD [Primary Care Provider] - 1-2 days Leona Osorio MD [STAFF PHYSICIAN] - 1 Week Activity/Diet/Wound Care/Special Instructions: Low-fat soft bland diet Discharge Disposition: HOME SELF-CARE
== END 2023-03-30 18:45 | disposition home or self-care (01) ==
LOC: EC 06:17 → 6NMEDSUR 08:55
PROVIDERS: ADMIT Family Medicine; ATTEND Family Medicine
DX: K85.90 Acute pancreatitis without necrosis or infection, unspecified (principal); E86.0 Dehydration; E87.6 Hypokalemia; E87.20 Acidosis, unspecified; K21.9 Gastro-esophageal reflux disease without esophagitis; F41.9 Anxiety disorder, unspecified; F17.290 Nicotine dependence, other tobacco product, uncomplicated
CPT/HCPCS: 96376 ×4; 96366 ×3; 96367; 96372 ×2; 96361; 96365; 96375; 99285; 36415; 80061; 80053; 80048 ×2; 83690 ×3; 83735; 85025; 81001; G0378 ×3; J2405 ×3; J1650 ×2; J3480 ×3; J1170 ×3; J1790

== ENCOUNTER 2023-05-07 05:08 | Observation (INO) | payer OTHER ==
[2023-05-07 05:58] LABS: Basophils % (A) 0 %; Eosinophils # (A) 0.1 k/uL (0-0.7); Eosinophils % (A) 1 %; HGB 13.8 gm/dL (11.4-16.0); Lymphocytes # (A) 1.6 k/uL (1.0-4.8); Lymphocytes % (A) 16 %; MCH 29.6 pg (25.0-35.0); MCHC 34.6 g/dL (31.0-37.0); MCV 85.7 fL (80.0-100.0); Mean Platelet Volume 8.3; Monocytes # (A) 0.5 k/uL (0-1.0); Monocytes % (A) 5 %; Neutrophils # (A) 7.3 k/uL (1.3-7.7); Neutrophils % (A) 76 %; Platelet Count 239 k/uL (150-450); RBC 4.67 m/uL (3.80-5.40); RDW 12.2 % (11.5-15.5); WBC 9.6 k/uL (3.8-10.6)
[2023-05-07 06:05] LABS: Appearance,Urine Cloudy (Clear); Bilirubin,Urine Negative (Negative); Blood,Urine Large (Negative); Color,Urine Light Red; Glucose,Urine (UA) Negative (Negative); Ketones,Urine 3+ (Negative); Leukocyte Esterase,Urine Large (Negative); Mucus,Urine Many /hpf; Nitrite,Urine Negative (Negative); Protein,Urine 2+ (Negative); RBC,Urine >182 /hpf (0-5); Specific Gravity,Urine 1.034 (1.001-1.035); Squamous Epithelial Cell,Urine 3 /hpf (0-4); WBC,Urine 10 /hpf (0-5)
[2023-05-07 06:09] LABS: ALT 14 U/L (4-34); AST 19 U/L (14-36); African American GFR (CKD) >90 (>60 ml/min/1.73 sqM); Albumin 4.5 g/dL (3.5-5.0); Alkaline Phosphatase 72 U/L (38-126); Amylase 131 U/L (30-110); Anion Gap 12 mmol/L; Blood Urea Nitrogen 14 mg/dL (7-17); Calcium 9.2 mg/dL (8.4-10.2); Carbon Dioxide 20 mmol/L (22-30); Chloride 105 mmol/L (98-107); Glucose 101 mg/dL (74-99); Lipase 1112 U/L (23-300); Non-African American GFR(CKD) >90 (>60 ml/min/1.73 sqM); Potassium 3.2 mmol/L (3.5-5.1); Sodium 137 mmol/L (137-145); Total Bilirubin 0.8 mg/dL (0.2-1.3); Total Protein 7.1 g/dL (6.3-8.2)
[2023-05-07] MEDS: METOCLOPRAMIDE 5 MG/ML 2 ML VIAL IVP STA (06:14)
[2023-05-07] MEDS: SODIUM CHLORIDE 0.9% 1,000 ML IV STA (06:14)
[2023-05-07] MEDS: PANTOPRAZOLE 40 MG/10 ML VIAL IVP STA (06:15)
[2023-05-07] MEDS: HYDROmorphone 0.5 MG/0.5 ML SYRINGE IVP STA (06:15)
[2023-05-07] MEDS ORDERED: NALOXONE 0.4 MG/ML 1 ML VIAL IV PRN (06:25)
[2023-05-07] MEDS ORDERED: ACETAMINOPHEN IV (For NPO) 1,000 MG in EMPTY BAG 1 BAG IVPB PRN (06:26)
[2023-05-07] MEDS ORDERED: METOCLOPRAMIDE 5 MG/ML 2 ML VIAL IVP PRN (06:26)
--- NOTE | 2023-05-07 06:28 | ED ---
Abdominal Pain HPI - General Chief Complaint: Abdominal Pain Stated Complaint: abd pain Time Seen by Provider: 05/07/23 05:57 Source: patient, RN notes reviewed Mode of arrival: ambulatory Limitations: no limitations - History of Present Illness Initial Comments: This is a 27-year-old female who presents to the emergency department for abdominal pain, nausea, and vomiting. Symptoms started about 3 days ago. Describes the abdominal pain as being diffuse. She was discharged on 03/30/23 for acute pancreatitis, which she has had recurrent problems with. States that she has not followed up with Dr. Osorio, gastroenterology, and she is not sure why she continues to get ill so frequently. MD Complaint: abdominal pain - Related Data Previous Rx's Medication Instructions Recorded Metoclopramide [Reglan] 10 mg PO TID PRN #15 tab 03/27/23 Allergies Allergy/AdvReac Type Severity Reaction Status Date / Time No Known Allergies Allergy Verified 05/07/23 05:20 Review of Systems ROS Statement: Those systems with pertinent positive or pertinent negative responses have been documented in the HPI. ROS Other: All systems not noted in ROS Statement are negative. Past Medical History Past Medical History: GERD/Reflux Additional Past Medical History / Comment(s): MIGRAINES, BACK PAIN. 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 No other history of STDs. History of Any Multi-Drug Resistant Organisms: None Reported Past Surgical History: Cholecystectomy, Hernia Repair Additional Past Surgical History / Comment(s): Hiatal hernia repair. Past Anesthesia/Blood Transfusion Reactions: Motion Sickness Additional Past Anesthesia/Blood Transfusion Reaction / Comment(s): NO ANESTHESIA HX Past Psychological History: Anxiety Smoking Status: Never smoker Past Alcohol Use History: Occasional Past Drug Use History: Marijuana - Past Family History Mother Family Medical History: No Reported History Additional Family Medical History / Comment(s): Maternal grandmother had colon cancer. A maternal great grandmother had breast cancer. Father Family Medical History: Hypertension General Exam Limitations: no limitations General appearance: alert, in distress Head exam: Present: atraumatic, normocephalic, normal inspection Respiratory exam: Present: normal lung sounds bilaterally. Absent: respiratory distress, wheezes, rales, rhonchi, stridor Cardiovascular Exam: Present: regular rate, normal rhythm, normal heart sounds. Absent: systolic murmur, diastolic murmur, rubs, gallop, clicks GI/Abdominal exam: Present: soft, tenderness (diffuse), normal bowel sounds. Absent: distended Neurological exam: Present: alert, oriented X3, CN II-XII intact Psychiatric exam: Present: normal affect, normal mood Skin exam: Present: warm, dry, intact, normal color. Absent: rash Course Vital Signs 05/07/23 05/07/23 05/07/23 05:18 07:31 07:59 Temperature 98.2 F Pulse Rate 66 51 L 51 L Respiratory 18 16 16 Rate Blood Pressure 158/104 124/83 O2 Sat by Pulse 100 Oximetry 05/07/23 08:25 Temperature 97.8 F Pulse Rate 53 L Respiratory 16 Rate Blood Pressure 116/75 O2 Sat by Pulse 95 Oximetry Medical Decision Making - Medical Decision Making This is a 27-year-old female who presents to the emergency department for abdominal pain, nausea, and vomiting. Was pt. sent in by a medical professional or institution? @ -No Did you speak to anyone other than the patient for history? @ -No Did you review nursing and triage notes? @ -Yes, and I agree, it is accurate with regards to the patient's symptoms. Were old charts reviewed? @ -No Differential Diagnosis? @ -Differential Abdominal Pain Women: Appendicitis, Cholecystitis, diverticulosis, ischemic bowel, pancreatitis, hepatitis, UTI, gastroenteritis, AAA, incarcerated hernia, bowel obstruction, constipation, inflammatory bowel, hepatitis, peptic ulcer disease, splenic infarction, perforated viscus, vulvitis, ovarian torsion, PID, kidney stone, placenta abruption, this is not meant to be an all-inclusive list EKG interpreted by me (3pts min.)? @ -Not obtained X-rays interpreted by me (1pt min.)? @ -Not obtained CT interpreted by me (1pt min.)? @ -Not obtained U/S interpreted by me (1pt. min.)? @ -Not obtained What testing was considered but not performed? (CT, X-rays, U/S, labs)? Why? @ -None What meds were considered but not given? Why? @ -None Did you discuss the management of the patient with other professionals? @ -Yes, Dr. Rivera, who accepts the patient for admission. Did you reconcile home meds? @ -No Was smoking cessation discussed for >3mins.? @ -No Was critical care preformed (if so, how long)? @ -No Were there social determinants of health that impacted care today? How? (Homelessness, low income, unemployed, alcoholism, drug addiction, transportation, low edu. Level, literacy, decrease access to med. care, halfway, rehab)? @ -No Was there de-escalation of care discussed even if they declined? (Discuss DNR or withdrawal of care, Hospice)? @ -No What co-morbidities impacted this encounter? (DM, HTN, Smoking, COPD, CAD, Cancer, CVA, Hep., AIDS, mental health diagnosis, sleep apnea, morbid obesity)? @ -None Was patient admitted / discharged? @ -Admitted. Lab work obtained with findings consistent with acute pancreatitis. Lipase 1112, amylase 131. She did also have hypokalemia, however due to her inability to tolerate PO intake, this was treated with intravenous potassium chloride. Urine has a large amount of blood with leukocyte esterase. Urine sent for culture. Patient admitted to medicine for acute pancreatitis. She was started on maintenance IV fluids and kept NPO for the meantime due to active nausea and vomiting. Undiagnosed new problem with uncertain prognosis? @ -None Drug Therapy requiring intensive monitoring for toxicity (Heparin, Nitro, Insulin, Cardizem)? @ -None Were any procedures done? @ -None Diagnosis/symptom? @ -Acute pancreatitis Acute, or Chronic, or Acute on Chronic? @ -Acute Uncomplicated (without systemic symptoms) or Complicated (systemic symptoms)? @ -Complicated Side effects of treatment? @ -None Exacerbation, Progression, or Severe Exacerbation] @ -Not applicable Poses a threat to life or bodily function? @ -Yes This case was discussed in detail with the attending ED physician, Dr. Mcmillan. Presentation, findings, and treatment plan discussed in detail as well. - Lab Data Result diagrams: 05/07/23 05:31 05/07/23 05:31 Lab Results 05/07/23 05/07/23 05/07/23 Range/Units 05:31 05:31 05:31 WBC 9.6 (3.8-10.6) k/uL RBC 4.67 (3.80-5.40) m/uL Hgb 13.8 (11.4-16.0) gm/dL Hct 40.0 (34.0-46.0) % MCV 85.7 (80.0-100.0) fL MCH 29.6 (25.0-35.0) pg MCHC 34.6 (31.0-37.0) g/dL RDW 12.2 (11.5-15.5) % Plt Count 239 (150-450) k/uL MPV 8.3 Neutrophils % 76 % Lymphocytes % 16 % Monocytes % 5 % Eosinophils % 1 % Basophils % 0 % Neutrophils # 7.3 (1.3-7.7) k/uL Lymphocytes # 1.6 (1.0-4.8) k/uL Monocytes # 0.5 (0-1.0) k/uL Eosinophils # 0.1 (0-0.7) k/uL Basophils # 0.0 (0-0.2) k/uL Sodium (137-145) mmol/L Potassium (3.5-5.1) mmol/L Chloride (98-107) mmol/L Carbon Dioxide (22-30) mmol/L Anion Gap mmol/L BUN (7-17) mg/dL Creatinine (0.52-1.04) mg/dL Est GFR (CKD-EPI)AfAm (>60 ml/min/1.73 sqM) Est GFR (CKD-EPI)NonAf (>60 ml/min/1.73 sqM) Glucose (74-99) mg/dL Calcium (8.4-10.2) mg/dL Magnesium (1.6-2.3) mg/dL Total Bilirubin (0.2-1.3) mg/dL AST (14-36) U/L ALT (4-34) U/L Alkaline Phosphatase (38-126) U/L Total Protein (6.3-8.2) g/dL Albumin (3.5-5.0) g/dL Amylase (30-110) U/L Lipase (23-300) U/L Urine Color Light Red Urine Appearance Cloudy H (Clear) Urine pH 6.0 (5.0-8.0) Ur Specific [place] 1.034 (1.001-1.035) Urine Protein 2+ H (Negative) Urine Glucose (UA) Negative (Negative) Urine Ketones 3+ H (Negative) Urine Blood Large H (Negative) Urine Nitrite Negative (Negative) Urine Bilirubin Negative (Negative) Urine Urobilinogen 2.0 (<2.0) mg/dL Ur Leukocyte Esterase Large H (Negative) Urine RBC >182 H (0-5) /hpf Urine WBC 10 H (0-5) /hpf Ur Squamous Epith Cells 3 (0-4) /hpf Urine Mucus Many H (None) /hpf Urine HCG, Qual Not Detected (Not Detectd) 05/07/23 05/07/23 Range/Units 05:31 05:31 WBC (3.8-10.6) k/uL RBC (3.80-5.40) m/uL Hgb (11.4-16.0) gm/dL Hct (34.0-46.0) % MCV (80.0-100.0) fL MCH (25.0-35.0) pg MCHC (31.0-37.0) g/dL RDW (11.5-15.5) % Plt Count (150-450) k/uL MPV Neutrophils % % Lymphocytes % % Monocytes % % Eosinophils % % Basophils % % Neutrophils # (1.3-7.7) k/uL Lymphocytes # (1.0-4.8) k/uL Monocytes # (0-1.0) k/uL Eosinophils # (0-0.7) k/uL Basophils # (0-0.2) k/uL Sodium 137 (137-145) mmol/L Potassium 3.2 L (3.5-5.1) mmol/L Chloride 105 (98-107) mmol/L Carbon Dioxide 20 L (22-30) mmol/L Anion Gap 12 mmol/L BUN 14 (7-17) mg/dL Creatinine 0.58 (0.52-1.04) mg/dL Est GFR (CKD-EPI)AfAm >90 (>60 ml/min/1.73 sqM) Est GFR (CKD-EPI)NonAf >90 (>60 ml/min/1.73 sqM) Glucose 101 H (74-99) mg/dL Calcium 9.2 (8.4-10.2) mg/dL Magnesium 2.3 (1.6-2.3) mg/dL Total Bilirubin 0.8 (0.2-1.3) mg/dL AST 19 (14-36) U/L ALT 14 (4-34) U/L Alkaline Phosphatase 72 (38-126) U/L Total Protein 7.1 (6.3-8.2) g/dL Albumin 4.5 (3.5-5.0) g/dL Amylase 131 H (30-110) U/L Lipase 1112 H (23-300) U/L Urine Color Urine Appearance (Clear) Urine pH (5.0-8.0) Ur Specific [place] (1.001-1.035) Urine Protein (Negative) Urine Glucose (UA) (Negative) Urine Ketones (Negative) Urine Blood (Negative) Urine Nitrite (Negative) Urine Bilirubin (Negative) Urine Urobilinogen (<2.0) mg/dL Ur Leukocyte Esterase (Negative) Urine RBC (0-5) /hpf Urine WBC (0-5) /hpf Ur Squamous Epith Cells (0-4) /hpf Urine Mucus (None) /hpf Urine HCG, Qual (Not Detectd) Disposition Clinical Impression: Acute pancreatitis Disposition: ADMITTED IP TO THIS [facility] Time of Disposition: 06:28
[2023-05-07] MEDS: SODIUM CHLORIDE 0.9% 1,000 ML IV SCH (06:52)
[2023-05-07] MEDS: POTASSIUM CHLORIDE 20 MEQ in WATER FOR INJECTION 1 100ML.BAG IVPB STA (06:53)
[2023-05-07] MEDS: HYDROmorphone 0.5 MG/0.5 ML SYRINGE IVP PRN (08:35)
--- NOTE | 2023-05-07 10:43 | P.GSCN ---
History of Present Illness Consult date: 05/07/23 Reason for Consult: Pancreatitis History of present illness: 27-year-old female with history of pancreatitis in the past. She has had about 4 episodes she thinks over the years. She had previous cholecystectomy in the past for chronic cholecystitis. She had biliary dyskinesia on HIDA scan. No gallstones were ever seen. Patient states she does not drink. No unusual supplements. No medications. No workup for pancreatic divisum. She does not believe she has seen GI before. Review of Systems The patient denies any acute changes in vision or hearing, no dysphagia or odynophagia, no chest pain or shortness of breath, no dysuria or hematuria, no headache, no runny nose, no rectal bleeding or melena, no unexplained weight loss Past Medical History Past Medical History: GERD/Reflux Additional Past Medical History / Comment(s): MIGRAINES, BACK PAIN. 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 No other history of STDs. History of Any Multi-Drug Resistant Organisms: None Reported Past Surgical History: Cholecystectomy, Hernia Repair Additional Past Surgical History / Comment(s): Hiatal hernia repair. Past Anesthesia/Blood Transfusion Reactions: Motion Sickness Additional Past Anesthesia/Blood Transfusion Reaction / Comm: NO ANESTHESIA HX Past Psychological History: Anxiety Smoking Status: Never smoker Past Alcohol Use History: Occasional Past Drug Use History: Marijuana - Past Family History Mother Family Medical History: No Reported History Additional Family Medical History / Comment(s): Maternal grandmother had colon cancer. A maternal great grandmother had breast cancer. Father Family Medical History: Hypertension Medications and Allergies Home Medications Medication Instructions Recorded Confirmed Type Metoclopramide [Reglan] 10 mg PO TID PRN #15 tab 03/27/23 03/28/23 Rx Allergies Allergy/AdvReac Type Severity Reaction Status Date / Time No Known Allergies Allergy Verified 05/07/23 05:20 Surgical - Exam Vital Signs Temp Pulse Resp BP Pulse Ox 98.2 F 66 18 158/104 100 05/07/23 05:18 05/07/23 05:18 05/07/23 05:18 05/07/23 05:18 05/07/23 05:18 Physical exam: General: Well-developed, well-nourished HEENT: Normocephalic, sclerae nonicteric Abdomen: Mild epigastric tenderness, nondistended Extremities: No edema Neuro: Alert and oriented Results - Labs 05/07/23 05:31 05/07/23 05:31 Abnormal Lab Results - Last 24 Hours (Table) 05/07/23 05/07/23 Range/Units 05:31 05:31 Potassium 3.2 L (3.5-5.1) mmol/L Carbon Dioxide 20 L (22-30) mmol/L Glucose 101 H (74-99) mg/dL Amylase 131 H (30-110) U/L Lipase 1112 H (23-300) U/L Urine Appearance Cloudy H (Clear) Urine Protein 2+ H (Negative) Urine Ketones 3+ H (Negative) Urine Blood Large H (Negative) Ur Leukocyte Esterase Large H (Negative) Urine RBC >182 H (0-5) /hpf Urine WBC 10 H (0-5) /hpf Urine Mucus Many H (None) /hpf Diabetes panel 05/07/23 Range/Units 05:31 Sodium 137 (137-145) mmol/L Potassium 3.2 L (3.5-5.1) mmol/L Chloride 105 (98-107) mmol/L Carbon Dioxide 20 L (22-30) mmol/L BUN 14 (7-17) mg/dL Creatinine 0.58 (0.52-1.04) mg/dL Glucose 101 H (74-99) mg/dL Calcium 9.2 (8.4-10.2) mg/dL AST 19 (14-36) U/L ALT 14 (4-34) U/L Alkaline Phosphatase 72 (38-126) U/L Total Protein 7.1 (6.3-8.2) g/dL Albumin 4.5 (3.5-5.0) g/dL Calcium panel 05/07/23 Range/Units 05:31 Calcium 9.2 (8.4-10.2) mg/dL Albumin 4.5 (3.5-5.0) g/dL Pituitary panel 05/07/23 Range/Units 05:31 Sodium 137 (137-145) mmol/L Potassium 3.2 L (3.5-5.1) mmol/L Chloride 105 (98-107) mmol/L Carbon Dioxide 20 L (22-30) mmol/L BUN 14 (7-17) mg/dL Creatinine 0.58 (0.52-1.04) mg/dL Glucose 101 H (74-99) mg/dL Calcium 9.2 (8.4-10.2) mg/dL Adrenal panel 05/07/23 Range/Units 05:31 Sodium 137 (137-145) mmol/L Potassium 3.2 L (3.5-5.1) mmol/L Chloride 105 (98-107) mmol/L Carbon Dioxide 20 L (22-30) mmol/L BUN 14 (7-17) mg/dL Creatinine 0.58 (0.52-1.04) mg/dL Glucose 101 H (74-99) mg/dL Calcium 9.2 (8.4-10.2) mg/dL Total Bilirubin 0.8 (0.2-1.3) mg/dL AST 19 (14-36) U/L ALT 14 (4-34) U/L Alkaline Phosphatase 72 (38-126) U/L Total Protein 7.1 (6.3-8.2) g/dL Albumin 4.5 (3.5-5.0) g/dL Assessment and Plan (1) Acute pancreatitis Narrative/Plan: 19-year-old female with recurrent pancreatitis. Status postcholecystectomy. Agree with GI evaluation. Will order secretin enhanced MRCP to evaluate for pancreatic divisum. Repeat labs tomorrow. May have liquid diet. Current Visit: Yes Status: Acute Code(s): K85.90 - ACUTE PANCREATITIS WITHOUT NECROSIS OR INFECTION, UNSP SNOMED Code(s): 291953906
--- NOTE | 2023-05-07 20:01 | HP ---
HISTORY AND PHYSICAL HISTORY OF PRESENT ILLNESS: A 27-year-old white female came to emergency room with abdominal pain, nausea, vomiting started [address] Osorio, not sure why UTI at this time with large leukocyte esterase, red cells and white cells in the urine were all positive. ALLERGIES: Negative. REVIEW OF SYSTEMS: A 14-point review of systems otherwise negative. PAST MEDICAL HISTORY: GERD. PAST SURGICAL HISTORY: Cholecystectomy, and hernia repair. She has motion sickness. SOCIAL HISTORY: Continues to smoke. Occasional marijuana. FAMILY HISTORY: Father with hypertension. PHYSICAL EXAMINATION: VITAL SIGNS: Reviewed. CARDIOVASCULAR: S1, S2. LUNGS: Scattered wheeze and rhonchi. HEMATOLOGY: Negative Homans. PSYCH: Fair mood and affect. NEUROLOGIC: Cranial nerves intact. PSYCH: Fair mood and affect. VITAL SIGNS: Temperature 98.2, pulse 50s to 60s, respiratory rate 16 to 18, blood pressure 158/104, O2 of 100%. ASSESSMENT: Acute pancreatitis, hypokalemia, unable to tolerate p.o. liquids or solids. GI and surgical consult. Clear liquids and advance diet as tolerated. We will do workup for pancreatitis and do CAT scan of her belly. Prognosis guarded. Treat for UTI with Rocephin until urine cultures are back. MMODL / IJN: [id number] /
[2023-05-08] MEDS: PANTOPRAZOLE 40 MG/10 ML VIAL IV SCH (08:29)
[2023-05-08] MEDS: ONDANSETRON 4 MG/2 ML VIAL IVP PRN (09:20)
[2023-05-08] MEDS: HYDROmorphone 1 MG/ML 1 ML SYRINGE IVP PRN (09:21)
[2023-05-08 11:36] LABS: Basophils % (A) 1 %; Eosinophils # (A) 0.1 k/uL (0-0.7); Eosinophils % (A) 1 %; HCT 36.2 % (34.0-46.0); HGB 12.6 gm/dL (11.4-16.0); Lymphocytes # (A) 1.5 k/uL (1.0-4.8); Lymphocytes % (A) 30 %; MCH 29.7 pg (25.0-35.0); MCHC 34.9 g/dL (31.0-37.0); Mean Platelet Volume 8.9; Monocytes # (A) 0.3 k/uL (0-1.0); Monocytes % (A) 5 %; Neutrophils # (A) 3.2 k/uL (1.3-7.7); Neutrophils % (A) 62 %; Platelet Count 171 k/uL (150-450); RBC 4.26 m/uL (3.80-5.40); RDW 12.3 % (11.5-15.5); WBC 5.2 k/uL (3.8-10.6)
[2023-05-08 11:45] LABS: ALT 20 U/L (4-34); AST 25 U/L (14-36); Albumin 3.9 g/dL (3.5-5.0); Albumin/Globulin Ratio 1.6; Alkaline Phosphatase 63 U/L (38-126); Anion Gap 9 mmol/L; Blood Urea Nitrogen 7 mg/dL (7-17); Calcium 8.3 mg/dL (8.4-10.2); Carbon Dioxide 22 mmol/L (22-30); Chloride 103 mmol/L (98-107); Globulin 2.4 g/dL; Potassium 3.2 mmol/L (3.5-5.1); Sodium 134 mmol/L (137-145); Total Bilirubin 0.6 mg/dL (0.2-1.3); Total Protein 6.3 g/dL (6.3-8.2)
[2023-05-08 12:00] LABS: African American GFR (CKD) >90 (>60 ml/min/1.73 sqM); Glucose 77 mg/dL (74-99); Non-African American GFR(CKD) >90 (>60 ml/min/1.73 sqM)
[2023-05-08] MEDS: POTASSIUM CHLORIDE 20 MEQ in WATER FOR INJECTION 1 100ML.BAG IVPB STA (13:18)
--- NOTE | 2023-05-08 15:03 | P.PN ---
Subjective Progress Note Date: 05/08/23 CHIEF COMPLAINT: Pancreatitis HISTORY OF PRESENT ILLNESS: Patient reports that her abdominal pain is impr oving. She has mild epigastric abdominal pain. She has had 4 episodes of pancreatitis in the past. History of cholecystectomy. Denies alcohol use. Scheduled for MRCP today. Afebrile. WBC 5.2 Hgb 12.6 sodium 134 potassium 3.2 creatinine 0.53 LFTs normal. lipase pending PHYSICAL EXAM: VITAL SIGNS: Reviewed. GENERAL: Well-developed in no acute distress. ABDOMEN: Soft. Nondistended. Mild epigastric tenderness NEUROLOGIC: Alert and oriented. Cranial nerves II through XII grossly intact. ASSESSMENT: 1. Acute pancreatitis 2. Hypokalemia 3. History of cholecystectomy PLAN: -Patient scheduled for MRCP today to evaluate for pancreatic divisum -Continue clear liquids -Repeat lipase level Physician Case Planner note has been reviewed by physician. Signing provider agrees with the documented findings, assessment, and plan of care. Objective - Vital Signs Vital signs: Vital Signs Temp 98.2 F 05/08/23 07:00 Pulse 59 L 05/08/23 07:00 Resp 16 05/08/23 07:00 BP 106/69 05/08/23 07:00 Pulse Ox 100 05/08/23 00:41 FiO2 Intake & Output 05/07/23 05/08/23 05/08/23 18:59 06:59 18:59 Intake Total 0 Balance 0 Weight 58.967 kg Intake: Oral 0 Other: Voiding Method Toilet Toilet # Voids 0 1 - Labs CBC & Chem 7: 05/08/23 10:52 05/08/23 10:52
--- NOTE | 2023-05-08 21:24 | MR ---
EXAMINATION TYPE: MR pancreas / mrcp wo/w con DATE OF EXAM: 05/08/2023 5:43 PM CLINICAL INDICATION:Female, 27 years old with history of Secretin enhanced, pancreatitis question div isum, Secretin enhanced. Pancreatitis question divisum COMPARISON: 02/10/2023 ct. TECHNIQUE MRI ABDOMEN WITH CONTRAST: Multiplanar multi-sequence imaging was performed without and wit h IV contrast/gadolinium. The patient was given 6 cc Gadobutrol gadolinium intravenously and dynamic post-VIBE (volumetric interpolated breath-hold gradient recall echo) imaging was performed. IV Contrast: 6 cc Gadobutrol TECHNIQUE MRCP ABDOMEN WITHOUT CONTRAST: Multi planar, T2-weighted imaging with and without fat satur ation and chemical shift imaging was performed of the abdomen. Then, heavily T2 weighted imaging (augusto f-Fourier acquisition single-shot turbo spin-echo) was utilized in order to study the biliary system. Maximum intensity projection images were reconstructed from the original data of the biliary tree. 3D reconstructions and MIP imaging performed on a separate workstation. Secretin enhanced technique. FINDINGS: MRCP: * The common bile duct at the level of the pancreatic head measures 7 mm in size. * The common hepatic duct measures 7 mm in size. * The pancreatic duct is normal. No evidence for pancreatic divisum. * The gallbladder is surgically absent. LOWER CHEST: No gross irregularity. ABDOMEN Liver: No evidence for hepatic steatosis or cirrhosis. Gallbladder and Bile ducts: No evidence for ductal dilation, or biliary stricture or evidence of chol edocholithiasis. The gallbladder is within normal limits. Pancreas: No ductal dilation. No evidence for solid mass. Spleen: Normal for size. Adrenal glands: Unremarkable. Kidneys: No evidence for obstructive uropathy. No suspicious renal masses. Stomach and Bowel: [id number] hiatal hernia. No evidence for bowel wall thickening or evidence for obstruction.. Peritoneum: No evidence of pneumoperitoneum or free fluid. Vasculature: No aortic aneurysm. Musculoskeletal: The osseous structures appear intact. Lymph Nodes: No gross evidence for lymphadenopathy. Abdominal wall: Fat-containing hernia. IMPRESSION: 1. No evidence of abdominal mass. No pancreatic divisum. Pancreatic duct is within normal limits. 2. No evidence to suggest ductal stricture, choledocholithiasis, or biliary ductal dilatation. 3. Small hiatal hernia.
--- NOTE | 2023-05-09 00:33 | PN ---
PROGRESS NOTE SUBJECTIVE: She is admitted with possible UTI and acute on chronic pancreatitis. She was seen by surgery. Diagnosed with acute pancreatitis, hypokalemia, history of cholecystectomy. She is supposed to get an MRCP to check for pancreatic divisum. Clear liquids. Repeat lipase. OBJECTIVE: GI: Soft, mild tenderness epigastrically. NEUROLOGIC: Cranial nerves intact. PSYCH: Fair mood and affect. HEMATOLOGY: Negative for Homans. VITAL SIGNS: Blood pressure 124/77, O2 100 on room air, temp 97.4, pulse 59, respiratory rate 16 to 18. Sodium 134, potassium 3.2. She is scheduled for MRCP for pancreatic divisum. Prognosis guarded. Continue current treatment. Please see further orders. MMODL / IJN: [id number] /
[2023-05-09 08:52] LABS: BUN/Creat Ratio 8.67 Ratio (12.00-20.00); Blood Urea Nitrogen 5.2 mg/dL (9.0-27.0); Calcium 8.4 mg/dL (8.7-10.3); Carbon Dioxide 24.1 mmol/L (21.6-31.8); Chloride 103 mmol/L (96-109); Glucose 86 mg/dL (70-110); Lipase 73 U/L (14-63); Potassium 3.4 mmol/L (3.5-5.5); Sodium 138 mmol/L (135-145)
[2023-05-09] MEDS: FLUCONAZOLE 150 MG TAB PO STA (13:42)
[2023-05-09 14:33] VITALS: BP 109/58; PULSE 72; RESP 21; TEMP 98
--- NOTE | 2023-05-09 15:27 | P.PN ---
Subjective Progress Note Date: 05/09/23 CHIEF COMPLAINT: Pancreatitis HISTORY OF PRESENT ILLNESS: Patient is abdominal pain has resolved. She is tolerating diet. Lipase has normalized. MRCP did not show any significant abnormality. Afebrile. Lipase 73 PHYSICAL EXAM: VITAL SIGNS: Reviewed. GENERAL: Well-developed in no acute distress. ABDOMEN: Soft. Nondistended. Nontender NEUROLOGIC: Alert and oriented. Cranial nerves II through XII grossly intact. ASSESSMENT: 1. Acute pancreatitis improved 2. Hypokalemia 3. History of cholecystectomy PLAN: -Patient can be discharged from surgical standpoint Physician Foreign Policy Officer note has been reviewed by physician. Signing provider agrees with the documented findings, assessment, and plan of care. Objective - Vital Signs Vital signs: Vital Signs Temp 98.2 F 05/09/23 07:00 Pulse 70 05/09/23 07:00 Resp 18 05/09/23 07:00 BP 95/59 05/09/23 07:00 Pulse Ox 98 05/09/23 07:00 FiO2 Intake & Output 05/08/23 05/09/23 05/09/23 18:59 06:59 18:59 Intake Total 110 Output Total 0 Balance 110 Intake: Oral 110 Output: Emesis 0 Other: Voiding Method Toilet Toilet Toilet # Voids 3 - Labs CBC & Chem 7: 05/08/23 10:52 05/09/23 05:44 Labs: Abnormal Lab Results - Last 24 Hours (Table) 05/08/23 05/08/23 05/09/23 Range/Units 10:52 10:52 05:44 Sodium 134 L (137-145) mmol/L Potassium 3.2 L 3.4 L (3.5-5.1) mmol/L BUN 5.2 L (9.0-27.0) mg/dL BUN/Creatinine Ratio 8.67 L (12.00-20.00) Ratio Calcium 8.3 L 8.4 L (8.4-10.2) mg/dL Lipase 469 H 73 H (23-300) U/L Microbiology - Last 24 Hours (Table) 05/07/23 05:31 Urine Culture - Final Urine,Clean Catch
== END 2023-05-09 16:39 | disposition home or self-care (01) ==
LOC: EC 05:08 → 6NMEDSUR 06:27
PROVIDERS: ADMIT Family Medicine; ATTEND Family Medicine
DX: K85.90 Acute pancreatitis without necrosis or infection, unspecified (principal); F41.9 Anxiety disorder, unspecified; K21.9 Gastro-esophageal reflux disease without esophagitis; F17.200 Nicotine dependence, unspecified, uncomplicated; Z90.49 Acquired absence of other specified parts of digestive tract; E87.6 Hypokalemia; N39.0 Urinary tract infection, site not specified; K44.9 Diaphragmatic hernia without obstruction or gangrene
CPT/HCPCS: 96376 ×2; 96366 ×3; 96361 ×2; 96365; 96367; 96375 ×2; 99285; 36415; 80053 ×2; 80048; 82150; 83690 ×3; 83735; 85025 ×2; 81001; 81025; 87086; 74183; G0378 ×3; J2765; J3480 ×2; J2405 ×2; J0696 ×3; J1170 ×4; C9113 ×3; A9585

== ENCOUNTER 2023-08-10 23:06 | Emergency (ER) | payer OTHER ==
--- NOTE | 2023-08-10 23:36 | ED ---
Nausea/Vomiting/Diarrhea HPI - General Chief complaint: Nausea/Vomiting/Diarrhea Stated complaint: NV Time Seen by Provider: 08/10/23 23:22 Source: patient, RN notes reviewed, old records reviewed Mode of arrival: ambulatory Limitations: no limitations - History of Present Illness Initial comments: This is a 28-year-old female to the ER for evaluation of severe nausea vomiting abdominal pain epigastric abdominal pain no fevers no travels no sick contacts no prior surgical complaints. Patient denies drugs or alcohol. History of pancreatitis MD complaint: nausea, vomiting, abdominal pain -: days(s) Description of Vomiting: watery Description of Diarrhea: water Associated Abdominal Pain: Yes Location: diffuse, periumbilical Radiation: none Severity: mild Severity scale (1-10): 3 Quality: stabbing, aching, sharp Consistency: constant Improves with: none Worsens with: none Associated Symptoms: chest pain, malaise, nausea/vomiting, weakness - Related Data Home Medications Medication Instructions Recorded Confirmed Famotidine [Pepcid] 20 mg PO BID 05/07/23 08/14/23 HYDROcodone/APAP 5-325MG [[place] 1 tab PO DAILY 08/14/23 08/14/23 5-325] Previous Rx's Medication Instructions Recorded Acetaminophen Tab [Tylenol] 650 mg PO Q6HR PRN tab 08/16/23 Ondansetron Odt [Zofran ODT] 4 mg PO Q8HR PRN 30 Days #60 tab 08/16/23 Pantoprazole [Protonix] 40 mg PO AC-BID 30 Days #60 tab 08/16/23 Scopolamine 1 mg/72 Hr Patch 1 patch TRANSDERM Q72H 30 Days #10 08/16/23 [TransDerm Scop] patch Allergies Allergy/AdvReac Type Severity Reaction Status Date / Time No Known Allergies Allergy Verified 08/14/23 06:53 Review of Systems ROS Statement: Those systems with pertinent positive or pertinent negative responses have been documented in the HPI. ROS Other: All systems not noted in ROS Statement are negative. Past Medical History Past Medical History: GERD/Reflux Additional Past Medical History / Comment(s): MIGRAINES, BACK PAIN. 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 No other history of STDs. History of Any Multi-Drug Resistant Organisms: None Reported Past Surgical History: Cholecystectomy, Hernia Repair Additional Past Surgical History / Comment(s): Hiatal hernia repair. Past Anesthesia/Blood Transfusion Reactions: Motion Sickness Additional Past Anesthesia/Blood Transfusion Reaction / Comment(s): NO ANESTHESIA HX Past Psychological History: Anxiety Smoking Status: Never smoker Past Alcohol Use History: Occasional Past Drug Use History: Marijuana - Past Family History Mother Family Medical History: No Reported History Additional Family Medical History / Comment(s): Maternal grandmother had colon cancer. A maternal great grandmother had breast cancer. Father Family Medical History: Hypertension General Exam Limitations: no limitations General appearance: alert, in no apparent distress Head exam: Present: atraumatic, normocephalic, normal inspection Eye exam: Present: normal appearance, PERRL, EOMI. Absent: scleral icterus, conjunctival injection, periorbital swelling ENT exam: Present: normal exam, mucous membranes moist Neck exam: Present: normal inspection. Absent: tenderness, meningismus, lymphadenopathy Respiratory exam: Present: normal lung sounds bilaterally. Absent: respiratory distress, wheezes, rales, rhonchi, stridor Cardiovascular Exam: Present: regular rate, normal rhythm, normal heart sounds. Absent: systolic murmur, diastolic murmur, rubs, gallop, clicks GI/Abdominal exam: Present: soft, normal bowel sounds. Absent: distended, tenderness, guarding, rebound, rigid Extremities exam: Present: normal inspection, full ROM, normal capillary refill. Absent: tenderness, pedal edema, joint swelling, calf tenderness Back exam: Present: normal inspection Neurological exam: Present: alert, oriented X3, CN II-XII intact Psychiatric exam: Present: normal affect, normal mood Skin exam: Present: warm, dry, intact, normal color. Absent: rash Course Vital Signs 08/10/23 08/11/23 08/11/23 23:16 00:08 01:00 Temperature 97.9 F Pulse Rate 50 L 90 82 Respiratory 16 17 16 Rate Blood Pressure 147/79 112/67 99/57 O2 Sat by Pulse 99 100 100 Oximetry 08/11/23 03:25 Temperature 98.0 F Pulse Rate 78 Respiratory 17 Rate Blood Pressure 100/72 O2 Sat by Pulse 99 Oximetry - Reevaluation(s) Reevaluation #1: 08/10/23 23:34 Medical records reviewed Reevaluation #2: Patient symptoms improved here in the ER Reevaluation #3: Patient informed of results questions answered Reevaluation #4: Was pt. sent in by a medical professional or institution ([facility], [facility] [employer] [facility], urgent care, hospital, or shelter...) When possible be specific @ -no Did you speak to anyone other than the patient for history (EMS, parent, family, police, friend...)? What history was obtained from this source @ -no Did you review nursing and triage notes (agree or disagree)? Why? @ -agree Are old charts reviewed (outside hosp., previous admission, EMS record, old EKG, old radiological studies, urgent care reports/EKG's, shelter records)? Report findings @ -yes Differential Diagnosis (chest pain, altered mental status, abdominal pain women, abdominal pain men, vaginal bleeding, weakness, fever, dyspnea, syncope, headache, dizziness, GI bleed, back pain, seizure, CVA, palpatations, mental health, musculoskeletal)? @ -prior EKG interpreted by me (3pts min.). @ -yes X-rays interpreted by me (1pt min.). @ -no CT interpreted by me (1pt min.). @ -no U/S interpreted by me (1pt. min.). @ -no What testing was considered but not performed or refused? (CT, X-rays, U/S, labs)? Why? @ -none What meds were considered but not given or refused? Why? @ -none Did you discuss the management of the patient with other professionals (professionals i.e. [facility], [facility] [employer] [facility], lab, RT, psych nurse, social work manager, ct tech, teacher, security police officer, director case management)? Give summary @ -no Was smoking cessation discussed for >3mins.? @ -no Was critical care preformed (if so, how long)? @ -no Were there social determinants of health that impacted care today? How? (Homelessness, low income, unemployed, alcoholism, drug addiction, transportation, low edu. Level, literacy, decrease access to med. care, [facility], rehab)? @ -none Was there de-escalation of care discussed even if they declined (Discuss DNR or withdrawal of care, Hospice)? DNR status @ -no What co-morbidities impacted this encounter? (DM, HTN, Smoking, COPD, CAD, Ca ncer, CVA, ARF, Chemo, Hep., AIDS, mental health diagnosis, sleep apnea, morbid obesity)? @ -none Was patient admitted / discharged? Hospital course, mention meds given and route, prescriptions, significant lab abnormalities, going to OR and other pertinent info. @ - 28 female with intractable nausea vomiting and severe dehydration although improved dramatically in the ER feels well for discharge Undiagnosed new problem with uncertain prognosis? @ -no Drug Therapy requiring intensive monitoring for toxicity (Heparin, Nitro, Insulin, Cardizem)? @ -no Were any procedures done? @ -no Diagnosis/symptom? @ -Nausea vomiting dehydration Acute, or Chronic, or Acute on Chronic? @ -Acute Uncomplicated (without systemic symptoms) or Complicated (systemic symptoms)? @ -Complicated Side effects of treatment? @ -no Exacerbation, Progression, or Severe Exacerbation? @ -exacerbation Poses a threat to life or bodily function? How? (Chest pain, [place], [place], pneumonia, PE, COPD, DKA, ARF, appy, cholecystitis, CVA, Diverticulitis, Homicidal, Suicidal, threat to staff... and all critical care pts) @ -no Reevaluation #5: Differential Abdominal Pain Women: Appendicitis, Cholecystitis, diverticulosis, ischemic bowel, pancreatitis, hepatitis, UTI, gastroenteritis, AAA, incarcerated hernia, bowel obstruction, constipation, inflammatory bowel, hepatitis, peptic ulcer disease, splenic infarction, perforated viscus, vulvitis, ovarian torsion, PID, kidney stone, placenta abruption, this is not meant to be an all-inclusive list Medical Decision Making - Medical Decision Making 28 female with intractable nausea vomiting and severe dehydration although improved dramatically in the ER feels well for discharge - Lab Data Result diagrams: 08/10/23 23:37 08/10/23 23:37 Lab Results 08/10/23 08/10/23 08/10/23 Range/Units 23:37 23:37 23:37 WBC 7.3 (3.8-10.6) k/uL RBC 4.45 (3.80-5.40) m/uL Hgb 13.1 (11.4-16.0) gm/dL Hct 40.0 (34.0-46.0) % MCV 90.0 (80.0-100.0) fL MCH 29.4 (25.0-35.0) pg MCHC 32.7 (31.0-37.0) g/dL RDW 12.4 (11.5-15.5) % Plt Count 190 (150-450) k/uL MPV 8.7 Neutrophils % 89 % Lymphocytes % 7 % Monocytes % 2 % Eosinophils % 0 % Basophils % 0 % Neutrophils # 6.5 (1.3-7.7) k/uL Lymphocytes # 0.5 L (1.0-4.8) k/uL Monocytes # 0.2 (0-1.0) k/uL Eosinophils # 0.0 (0-0.7) k/uL Basophils # 0.0 (0-0.2) k/uL Sodium 138 (137-145) mmol/L Potassium 3.9 (3.5-5.1) mmol/L Chloride 107 (98-107) mmol/L Carbon Dioxide 20 L (22-30) mmol/L Anion Gap 11 mmol/L BUN 9 (7-17) mg/dL Creatinine 0.50 L (0.52-1.04) mg/dL Est GFR (CKD-EPI)AfAm >90 (>60 ml/min/1.73 sqM) Est GFR (CKD-EPI)NonAf >90 (>60 ml/min/1.73 sqM) Glucose 138 H (74-99) mg/dL Lactic Ac Sepsis Rflx Plasma Lactic Acid Ilya 2.1 H* (0.7-2.0) mmol/L Calcium 8.7 (8.4-10.2) mg/dL Phosphorus 3.1 (2.5-4.5) mg/dL Magnesium 1.7 (1.6-2.3) mg/dL Total Bilirubin 0.6 (0.2-1.3) mg/dL AST 20 (14-36) U/L ALT 17 (4-34) U/L Alkaline Phosphatase 71 (38-126) U/L Troponin I (0.000-0.034) ng/mL Total Protein 7.2 (6.3-8.2) g/dL Albumin 4.5 (3.5-5.0) g/dL Lipase 315 H (23-300) U/L Salicylates <1.0 mg/dL Acetaminophen <10.0 ug/mL Serum Alcohol <10 mg/dL 08/10/23 08/11/23 Range/Units 23:37 00:59 WBC (3.8-10.6) k/uL RBC (3.80-5.40) m/uL Hgb (11.4-16.0) gm/dL Hct (34.0-46.0) % MCV (80.0-100.0) fL MCH (25.0-35.0) pg MCHC (31.0-37.0) g/dL RDW (11.5-15.5) % Plt Count (150-450) k/uL MPV Neutrophils % % Lymphocytes % % Monocytes % % Eosinophils % % Basophils % % Neutrophils # (1.3-7.7) k/uL Lymphocytes # (1.0-4.8) k/uL Monocytes # (0-1.0) k/uL Eosinophils # (0-0.7) k/uL Basophils # (0-0.2) k/uL Sodium (137-145) mmol/L Potassium (3.5-5.1) mmol/L Chloride (98-107) mmol/L Carbon Dioxide (22-30) mmol/L Anion Gap mmol/L BUN (7-17) mg/dL Creatinine (0.52-1.04) mg/dL Est GFR (CKD-EPI)AfAm (>60 ml/min/1.73 sqM) Est GFR (CKD-EPI)NonAf (>60 ml/min/1.73 sqM) Glucose (74-99) mg/dL Lactic Ac Sepsis Rflx Y Plasma Lactic Acid Ilya (0.7-2.0) mmol/L Calcium (8.4-10.2) mg/dL Phosphorus (2.5-4.5) mg/dL Magnesium (1.6-2.3) mg/dL Total Bilirubin (0.2-1.3) mg/dL AST (14-36) U/L ALT (4-34) U/L Alkaline Phosphatase (38-126) U/L Troponin I <0.012 (0.000-0.034) ng/mL Total Protein (6.3-8.2) g/dL Albumin (3.5-5.0) g/dL Lipase (23-300) U/L Salicylates mg/dL Acetaminophen ug/mL Serum Alcohol mg/dL - EKG Data -: EKG Interpreted by Me (EKG is sinus 67 MA 129 QRS 98 QTc 462) Disposition Clinical Impression: Dehydration, Intractable nausea and vomiting Disposition: HOME SELF-CARE Condition: Good Instructions (If sedation given, give patient instructions): Acute Nausea and Vomiting (ED) Is patient prescribed a controlled substance at d/c from ED?: No Referrals: Terry Rivera MD [Primary Care Provider] - 1-2 days Time of Disposition: 01:00
[2023-08-11] MEDS: diphenhydrAMINE 50 MG/ML 1 ML VIAL IVP STA
[2023-08-11] MEDS: SODIUM CHLORIDE 0.9% 1,000 ML IV STA ×2 (00:01→00:02)
[2023-08-11] MEDS: SODIUM CHLORIDE 0.9% 500 ML 500 ML IV STA (00:01)
[2023-08-11] MEDS: PROCHLORPERAZINE INJ 10 MG/2 ML VIAL IVP STA (00:01)
[2023-08-11 00:06] LABS: Basophils % (A) 0 %; Eosinophils % (A) 0 %; HGB 13.1 gm/dL (11.4-16.0); Lymphocytes # (A) 0.5 k/uL (1.0-4.8); Lymphocytes % (A) 7 %; MCH 29.4 pg (25.0-35.0); MCHC 32.7 g/dL (31.0-37.0); Mean Platelet Volume 8.7; Monocytes # (A) 0.2 k/uL (0-1.0); Monocytes % (A) 2 %; Neutrophils # (A) 6.5 k/uL (1.3-7.7); Neutrophils % (A) 89 %; Platelet Count 190 k/uL (150-450); RBC 4.45 m/uL (3.80-5.40); RDW 12.4 % (11.5-15.5); WBC 7.3 k/uL (3.8-10.6)
[2023-08-11 00:11] LABS: ALT 17 U/L (4-34); AST 20 U/L (14-36); Acetaminophen <10.0 ug/mL; African American GFR (CKD) >90 (>60 ml/min/1.73 sqM); Albumin 4.5 g/dL (3.5-5.0); Alcohol <10 mg/dL; Alkaline Phosphatase 71 U/L (38-126); Anion Gap 11 mmol/L; Blood Urea Nitrogen 9 mg/dL (7-17); Calcium 8.7 mg/dL (8.4-10.2); Carbon Dioxide 20 mmol/L (22-30); Chloride 107 mmol/L (98-107); Glucose 138 mg/dL (74-99); Lipase 315 U/L (23-300); Magnesium 1.7 mg/dL (1.6-2.3); Non-African American GFR(CKD) >90 (>60 ml/min/1.73 sqM); Phosphorus 3.1 mg/dL (2.5-4.5); Potassium 3.9 mmol/L (3.5-5.1); Salicylate <1.0 mg/dL; Sodium 138 mmol/L (137-145); Total Bilirubin 0.6 mg/dL (0.2-1.3); Total Protein 7.2 g/dL (6.3-8.2)
[2023-08-11] MEDS: ONDANSETRON 4 MG/2 ML VIAL IVP STA (03:16)
[2023-08-11] MEDS: traMADol 50 MG STARTER PACK 3 TAB BTL PO STA (03:17)
[2023-08-11] MEDS: ONDANSETRON 4 MG ODT STARTER PACK 2 TAB BTL PO STA (03:17)
[2023-08-11 04:00] VITALS: BP 100/72; PULSE 78; RESP 17; TEMP 98
== END 2023-08-11 03:30 | disposition home or self-care (01) ==
LOC: EC 23:06
DX: E86.0 Dehydration (principal); R11.2 Nausea with vomiting, unspecified
CPT/HCPCS: 36415 ×2; 93005; 80053; 83605; 83690; 83735; 84100; 84484; 85025; 80143; 80320; 80179; 99284; 96374; 96375 ×2; 96361 ×4; J1200; J0780; J2405; S0119

== ENCOUNTER 2023-08-12 11:42 | Emergency (ER) | payer OTHER ==
[2023-08-12 11:55] VITALS: BP 132/87; PULSE 50; RESP 18; TEMP 98.2
--- NOTE | 2023-08-12 12:51 | ED ---
General Adult HPI - General Chief complaint: Nausea/Vomiting/Diarrhea Stated complaint: vomiting Time Seen by Provider: 08/12/23 12:11 Source: patient, RN notes reviewed, old records reviewed Mode of arrival: ambulatory Limitations: no limitations - History of Present Illness Initial comments: Patient is a 28-year-old female who frequents her emergency department often for nausea and vomiting and abdominal pain. Has a history of pancreatitis. Has a history of cholecystectomy. States her symptoms today started approximately 3 AM. Has had multiple episodes of nausea, mildly bilious emesis. Is endorsing epigastric abdominal discomfort as well. This is chronic for the patient. Unknown trigger today. Does smoke marijuana and did smoke last night. Denies any chest pain or shortness of breath. Denies any fevers or chills. Has no urinary symptoms. Denies any diarrhea. Presents for further evaluation at this time. - Related Data Home Medications Medication Instructions Recorded Confirmed Famotidine [Pepcid] 20 mg PO BID PRN 05/07/23 05/07/23 Ondansetron Odt [Zofran ODT] 4 mg PO Q8H PRN 05/07/23 05/07/23 Previous Rx's Medication Instructions Recorded Ondansetron Odt [Zofran Odt] 4 mg PO Q8HR PRN #15 tab 06/03/23 Allergies Allergy/AdvReac Type Severity Reaction Status Date / Time No Known Allergies Allergy Verified 08/12/23 11:53 Review of Systems ROS Statement: Those systems with pertinent positive or pertinent negative responses have been documented in the HPI. Review of Systems: CONST: Denies fever EYES: Denies blurry vision ENT: Denies nasal congestion C/V: Denies Chest pain RESP: Denies shortness of breath GI: Endorses abdominal pain : Denies dysuria SKIN: Denies rash. MSK: Denies joint pain. NEURO: Denies headache ROS Other: All systems not noted in ROS Statement are negative. Past Medical History Past Medical History: GERD/Reflux Additional Past Medical History / Comment(s): MIGRAINES, BACK PAIN. 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 No other history of STDs. History of Any Multi-Drug Resistant Organisms: None Reported Past Surgical History: Cholecystectomy, Hernia Repair Additional Past Surgical History / Comment(s): Hiatal hernia repair. Past Anesthesia/Blood Transfusion Reactions: Motion Sickness Additional Past Anesthesia/Blood Transfusion Reaction / Comment(s): NO ANESTHESIA HX Past Psychological History: Anxiety Smoking Status: Never smoker Past Alcohol Use History: Occasional Past Drug Use History: Marijuana - Past Family History Mother Family Medical History: No Reported History Additional Family Medical History / Comment(s): Maternal grandmother had colon cancer. A maternal great grandmother had breast cancer. Father Family Medical History: Hypertension General Exam - General Exam Comments Initial Comments: General: Appears in mild distress. HEAD: Normal with no signs of head trauma. EYES: PERRLA, EOMI, conjunctiva normal, no discharge. ENT: Hearing grossly intact, normal oropharynx. RESPIRATORY: Clear breath sounds bilaterally. No wheezes, rales, or rhonchi. C/V: Regular rate and rhythm. S1 and S2 auscultated, no edema, peripheral pulses 2+ and intact throughout ABD: Abdomen soft, nondistended. Tender to palpation in the epigastric region. No guarding or rebound tenderness. No peritoneal signs. EXT: Normal range of motion, no obvious deformity SKIN: No rashes or lesions observed on exposed skin. NEURO: Alert and oriented x 4. Limitations: no limitations Course Vital Signs 08/12/23 11:51 Temperature 98.2 F Pulse Rate 50 L Respiratory 18 Rate Blood Pressure 132/87 O2 Sat by Pulse 100 Oximetry Medical Decision Making - Medical Decision Making Was pt. sent in by a medical professional or institution (, PA, ADVISORY INTERNSHIP, urgent care, hospital, or long term...) When possible be specific @ -No Did you speak to anyone other than the patient for history (EMS, parent, family, police, friend...)? What history was obtained from this source @ -No Did you review nursing and triage notes (agree or disagree)? Why? @ -I reviewed and agree with nursing and triage notes Were old charts reviewed (outside hosp., previous admission, EMS record, old EKG, old radiological studies, urgent care reports/EKG's, long term records)? Report findings @ -Old charts reviewed Differential Diagnosis (chest pain, altered mental status, abdominal pain women, abdominal pain men, vaginal bleeding, weakness, fever, dyspnea, syncope, headache, dizziness, GI bleed, back pain, seizure, CVA, palpatations, mental health, musculoskeletal)? @ -Differential Abdominal Pain Women: Appendicitis, Cholecystitis, diverticulosis, ischemic bowel, pancreatitis, hepatitis, UTI, gastroenteritis, AAA, incarcerated hernia, bowel obstruction, constipation, inflammatory bowel, hepatitis, peptic ulcer disease, splenic infarction, perforated viscus, vulvitis, ovarian torsion, PID, kidney stone, placenta abruption, this is not meant to be an all-inclusive list EKG interpreted by me (3pts min.). @ -None done X-rays interpreted by me (1pt min.). @ -None done CT interpreted by me (1pt min.). @ -None done U/S interpreted by me (1pt. min.). @ -None done What testing was considered but not performed or refused? (CT, X-rays, U/S, labs)? Why? @ -None What meds were considered but not given or refused? Why? @ -None Did you discuss the management of the patient with other professionals (professionals i.e. , PA, [employer]NS[employer], lab, RT, psych nurse, social service assistant, gauger chief delivery, teacher, child support case officer, skilled nursing case manager)? Give summary @ -No Was smoking cessation discussed for >3mins.? @ -No Was critical care preformed (if so, how long)? @ -No Were there social determinants of health that impacted care today? How? (Homelessness, low income, unemployed, alcoholism, drug addiction, transportation, low edu. Level, literacy, decrease access to med. care, alf, rehab)? @ -No Was there de-escalation of care discussed even if they declined (Discuss DNR or withdrawal of care, Hospice)? DNR status @ -No What co-morbidities impacted this encounter? (DM, HTN, Smoking, COPD, CAD, Cancer, CVA, ARF, Chemo, Hep., AIDS, mental health diagnosis, sleep apnea, morbid obesity)? @ -Pancreatitis Was patient admitted / discharged? Hospital course, mention meds given and route, prescriptions, significant lab abnormalities, going to OR and other pertinent info. @ -Based on patient's presentation and physical exam, presents with abdominal pain. Has history of pancreatitis. Presenting with similar symptoms to baseline. Denies any chest pain or shortness of breath. Denies any fevers or chills. I discussed with the patient, she has a history of multiple CT abdomen pelvis images in the past. Last occurring within the last 6 months. We will defer imaging at this time and obtain abdominal labs and symptomatically treat. Patient was in agreement this plan. Vital signs within except limits. Patient received IV fluids, analgesia medications, Protonix, Zofran. Patient's laboratory studies remarkable for mild leukocytosis of 12.1. Patient has an elevated amylase and lipase which is not abnormal for the patient. Currently only 452. On reevaluation, patient is feeling improved but is asking for additional nausea meds. There was an issue with the IV and patient is not received IV fluids. She will receive the rest of her IV fluids and be reevaluated. I did offer CT imaging however patient was in agreement with deferring at this time as she is feeling improved. She will return for CT imaging if necessary. After IV fluids, patient will be discharged home with ODT Zofran. She was in agreement this plan. Strict return precautions discussed. I will provide the patient with a prescription for ODT Zofran. I instructed the patient to follow up with their PCP in the next 1-3 days.. I explained that the patient should return to the emergency department if they experience any worsening symptoms. Strict return precautions were discussed with the patient. The patient expressed understanding of these instructions. I answered all questions that the patient had. The patient was discharged home in good condition with their prescriptions and follow up information. Undiagnosed new problem with uncertain prognosis? @ -No Drug Therapy requiring intensive monitoring for toxicity (Heparin, Nitro, Insulin, Cardizem)? @ -No Were any procedures done? @ -No Diagnosis/symptom? @ -Nausea and vomiting, acute pancreatitis Acute, or Chronic, or Acute on Chronic? @ -Acute on chronic Uncomplicated (without systemic symptoms) or Complicated (systemic symptoms)? @ -Complicated Side effects of treatment? @ -None Exacerbation, Progression, or Severe Exacerbation] @ -No Poses a threat to life or bodily function? @ -Unlikely - Lab Data Result diagrams: 08/12/23 12:19 08/12/23 12:19 Lab Results 08/12/23 08/12/23 08/12/23 Range/Units 12:19 12:19 12:19 WBC 12.1 H (3.8-10.6) k/uL RBC 4.25 (3.80-5.40) m/uL Hgb 12.5 (11.4-16.0) gm/dL Hct 37.0 (34.0-46.0) % MCV 87.1 (80.0-100.0) fL MCH 29.4 (25.0-35.0) pg MCHC 33.8 (31.0-37.0) g/dL RDW 12.8 (11.5-15.5) % Plt Count 187 (150-450) k/uL MPV 9.6 Neutrophils % 91 % Lymphocytes % 5 % Monocytes % 3 % Eosinophils % 0 % Basophils % 0 % Neutrophils # 11.0 H (1.3-7.7) k/uL Lymphocytes # 0.6 L (1.0-4.8) k/uL Monocytes # 0.3 (0-1.0) k/uL Eosinophils # 0.1 (0-0.7) k/uL Basophils # 0.0 (0-0.2) k/uL PT 11.3 (10.0-12.5) sec INR 1.0 (<1.2) APTT 20.3 L (22.0-30.0) sec Sodium 139 (137-145) mmol/L Potassium 3.6 (3.5-5.1) mmol/L Chloride 108 H (98-107) mmol/L Carbon Dioxide 17 L (22-30) mmol/L Anion Gap 14 mmol/L BUN 12 (7-17) mg/dL Creatinine 0.46 L (0.52-1.04) mg/dL Est GFR (CKD-EPI)AfAm >90 (>60 ml/min/1.73 sqM) Est GFR (CKD-EPI)NonAf >90 (>60 ml/min/1.73 sqM) Glucose 139 H (74-99) mg/dL Calcium 9.0 (8.4-10.2) mg/dL Total Bilirubin 0.7 (0.2-1.3) mg/dL AST 23 (14-36) U/L ALT 18 (4-34) U/L Alkaline Phosphatase 67 (38-126) U/L Total Protein 7.2 (6.3-8.2) g/dL Albumin 4.5 (3.5-5.0) g/dL Amylase 186 H (30-110) U/L Lipase 452 H (23-300) U/L HCG, Qual Not Detected Disposition Clinical Impression: Pancreatitis, acute, Nausea and vomiting Disposition: HOME SELF-CARE Condition: Good Instructions (If sedation given, give patient instructions): Pancreatitis (ED), Acute Nausea and Vomiting (ED) Is patient prescribed a controlled substance at d/c from ED?: No Referrals: Terry Rivera MD [Primary Care Provider] - 1-2 days Time of Disposition: 16:10
[2023-08-12] MEDS: PANTOPRAZOLE 40 MG/10 ML VIAL IVP STA (12:52)
[2023-08-12] MEDS: MORPHINE SULFATE 4 MG/ML SYRINGE IVP STA (12:53)
[2023-08-12] MEDS: KETOROLAC 15 MG/ML 1 ML VIAL IVP STA (12:54)
[2023-08-12] MEDS: ONDANSETRON 4 MG/2 ML VIAL IVP STA ×2 (12:54→15:03)
[2023-08-12] MEDS: SODIUM CHLORIDE 0.9% 1,000 ML IV STA (12:57)
[2023-08-12] MEDS: SODIUM CHLORIDE 0.9% 500 ML 500 ML IV STA (12:57)
[2023-08-12 13:18] LABS: Basophils % (A) 0 %; Eosinophils # (A) 0.1 k/uL (0-0.7); Eosinophils % (A) 0 %; HGB 12.5 gm/dL (11.4-16.0); Lymphocytes # (A) 0.6 k/uL (1.0-4.8); Lymphocytes % (A) 5 %; MCH 29.4 pg (25.0-35.0); MCHC 33.8 g/dL (31.0-37.0); MCV 87.1 fL (80.0-100.0); Mean Platelet Volume 9.6; Monocytes # (A) 0.3 k/uL (0-1.0); Monocytes % (A) 3 %; Neutrophils % (A) 91 %; Platelet Count 187 k/uL (150-450); RBC 4.25 m/uL (3.80-5.40); RDW 12.8 % (11.5-15.5); WBC 12.1 k/uL (3.8-10.6)
[2023-08-12 13:21] LABS: HCG,Qualitative Serum Not Detected
[2023-08-12 13:23] LABS: ALT 18 U/L (4-34); AST 23 U/L (14-36); African American GFR (CKD) >90 (>60 ml/min/1.73 sqM); Albumin 4.5 g/dL (3.5-5.0); Alkaline Phosphatase 67 U/L (38-126); Amylase 186 U/L (30-110); Anion Gap 14 mmol/L; Blood Urea Nitrogen 12 mg/dL (7-17); Carbon Dioxide 17 mmol/L (22-30); Chloride 108 mmol/L (98-107); Glucose 139 mg/dL (74-99); Lipase 452 U/L (23-300); Non-African American GFR(CKD) >90 (>60 ml/min/1.73 sqM); Potassium 3.6 mmol/L (3.5-5.1); Sodium 139 mmol/L (137-145); Total Bilirubin 0.7 mg/dL (0.2-1.3); Total Protein 7.2 g/dL (6.3-8.2)
[2023-08-12 13:32] LABS: Prothrombin Time 11.3 sec (10.0-12.5)
[2023-08-12 13:44] LABS: Partial Thromboplastin Time 20.3 sec (22.0-30.0)
[2023-08-12] MEDS: METOCLOPRAMIDE 5 MG/ML 2 ML VIAL IVP STA (14:44)
[2023-08-12] MEDS: diphenhydrAMINE 50 MG/ML 1 ML VIAL IVP STA (14:46)
[2023-08-12] MEDS: ONDANSETRON 4 MG ODT STARTER PACK 2 TAB BTL PO STA (17:17)
== END 2023-08-12 17:18 | disposition home or self-care (01) ==
LOC: EC 11:42
DX: K85.90 Acute pancreatitis without necrosis or infection, unspecified (principal); F12.90 Cannabis use, unspecified, uncomplicated
CPT/HCPCS: 99284; 96374; 96375 ×4; 96376; 96361; 36415; 80053; 82150; 83690; 85025; 85610; 85730; 84703; J2270; J1200; J2405; J1885; S0119; C9113

== ENCOUNTER 2023-08-12 23:20 | Emergency (ER) | payer OTHER ==
[2023-08-12 23:59] VITALS: TEMP 98.4
--- NOTE | 2023-08-13 00:13 | ED ---
Abdominal Pain HPI - General Chief Complaint: Abdominal Pain Stated Complaint: abd pain, vomitting Time Seen by Provider: 08/13/23 00:12 Source: patient, RN notes reviewed, old records reviewed Mode of arrival: ambulatory Limitations: no limitations - History of Present Illness Initial Comments: 28-year-old female presenting to the ER with a chief complaint of upper abdominal pain. She states her pain and nausea started about 5 hours ago. She has been taking Zofran without relief. Patient has a history of pancreatitis. She reports this pain feels similar. She states she was not vomiting but now she is just dry heaving. She denies any fevers, chills, chest pain, shortness of breath, urinary complaints, constipation/diarrhea or peripheral edema. - Related Data Home Medications Medication Instructions Recorded Confirmed Famotidine [Pepcid] 20 mg PO BID PRN 05/07/23 05/07/23 Ondansetron Odt [Zofran ODT] 4 mg PO Q8H PRN 05/07/23 05/07/23 Previous Rx's Medication Instructions Recorded Ondansetron Odt [Zofran Odt] 4 mg PO Q8HR PRN #15 tab 06/03/23 Allergies Allergy/AdvReac Type Severity Reaction Status Date / Time No Known Allergies Allergy Verified 08/12/23 11:53 Review of Systems ROS Statement: Those systems with pertinent positive or pertinent negative responses have been documented in the HPI. ROS Other: All systems not noted in ROS Statement are negative. Past Medical History Past Medical History: GERD/Reflux Additional Past Medical History / Comment(s): MIGRAINES, BACK PAIN. 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 No other history of STDs. Pancreatitis. History of Any Multi-Drug Resistant Organisms: None Reported Past Surgical History: Cholecystectomy, Hernia Repair Additional Past Surgical History / Comment(s): Hiatal hernia repair. Past Anesthesia/Blood Transfusion Reactions: Motion Sickness Additional Past Anesthesia/Blood Transfusion Reaction / Comment(s): NO ANESTHESIA HX Past Psychological History: Anxiety Smoking Status: Never smoker Past Alcohol Use History: Occasional Past Drug Use History: Marijuana - Past Family History Mother Family Medical History: No Reported History Additional Family Medical History / Comment(s): Maternal grandmother had colon cancer. A maternal great grandmother had breast cancer. Father Family Medical History: Hypertension General Exam Limitations: no limitations General appearance: alert, in no apparent distress, other (Patient lying in position) Respiratory exam: Present: normal lung sounds bilaterally. Absent: respiratory distress, wheezes, rales, rhonchi, stridor Cardiovascular Exam: Present: regular rate, normal rhythm, normal heart sounds. Absent: systolic murmur, diastolic murmur, rubs, gallop, clicks GI/Abdominal exam: Present: soft, tenderness (upper quadrants), normal bowel sounds Extremities exam: Present: normal inspection, full ROM, normal capillary refill. Absent: tenderness, pedal edema, joint swelling, calf tenderness Neurological exam: Present: alert, oriented X3, CN II-XII intact Skin exam: Present: warm, dry, intact, normal color. Absent: rash Course Vital Signs 08/12/23 08/13/23 08/13/23 23:22 01:00 02:10 Temperature 98.4 F Pulse Rate 55 L 69 74 Respiratory 16 18 18 Rate Blood Pressure 159/110 136/70 114/61 O2 Sat by Pulse 98 98 95 Oximetry Medical Decision Making - Medical Decision Making Was pt. sent in by a medical professional or institution (, PA, WEB SITE DEVELOPER, urgent care, hospital, or long term...) When possible be specific @ -No Did you speak to anyone other than the patient for history (EMS, parent, family, police, friend...)? What history was obtained from this source @ -No Did you review nursing and triage notes (agree or disagree)? Why? @ -I reviewed and agree with nursing and triage notes Were old charts reviewed (outside hosp., previous admission, EMS record, old EKG, old radiological studies, urgent care reports/EKG's, long term records)? Report findings @ -Yes I reviewed ER visit from 08-10-2023 and 08-12-2023. Patient seen for similar complaint and discharged. Differential Diagnosis (chest pain, altered mental status, abdominal pain women, abdominal pain men, vaginal bleeding, weakness, fever, dyspnea, syncope, headache, dizziness, GI bleed, back pain, seizure, CVA, palpatations, mental health, musculoskeletal)? @ -Differential Abdominal Pain Women:Appendicitis, Cholecystitis, diverticulosis, ischemic bowel, pancreatitis, hepatitis, UTI, gastroenteritis, AAA, incarcerated hernia, bowel obstruction, constipation, inflammatory bowel, hepatitis, peptic ulcer disease, splenic infarction, perforated viscus, vulvitis, ovarian torsion, PID, kidney stone, placenta abruption, this is not meant to be an all-inclusive list EKG interpreted by me (3pts min.). @ -None X-rays interpreted by me (1pt min.). @ -None done CT interpreted by me (1pt min.). @ -None done U/S interpreted by me (1pt. min.). @ -None done What testing was considered but not performed or refused? (CT, X-rays, U/S, labs)? Why? @ -CT considered but not performed as pancreatic enzymes have improved from 08/12/23. Patient also had recent CT scans for similar complaint, 02/2023. What meds were considered but not given or refused? Why? @ -None Did you discuss the management of the patient with other professionals (professionals i.e. , PA, WEB SITE DEVELOPER, lab, RT, psych nurse, social insurance administrator, bus analyst, teacher, employee service officer, briefcase sewer)? Give summary @ -No Was smoking cessation discussed for >3mins.? @ -No Was critical care preformed (if so, how long)? @ -No Were there social determinants of health that impacted care today? How? (Homelessness, low income, unemployed, alcoholism, drug addiction, transportation, low edu. Level, literacy, decrease access to med. care, fci, rehab)? @ -No Was there de-escalation of care discussed even if they declined (Discuss DNR or withdrawal of care, Hospice)? DNR status @ -No What co-morbidities impacted this encounter? (DM, HTN, Smoking, COPD, CAD, Ca ncer, CVA, ARF, Chemo, Hep., AIDS, mental health diagnosis, sleep apnea, morbid obesity)? @ -History of pancreatitis Was patient admitted / discharged? Hospital course, mention meds given and route, prescriptions, significant lab abnormalities, going to OR and other pertinent info. @ -Discharged. 28-year-old female presented to the ER with a chief complaint of abdominal pain and nausea. History and physical exam completed. Vitals stable. Patient recently seen here for similar complaint and discharged. Patient no signs of acute distress and laying in the position during examination. Upper abdominal pain to palpation. Normal bowel sounds. Lung sounds clear to auscultation bilaterally. Laboratory studies obtained significant for WBC 15.4 which is likely reactive to nausea and vomiting. Urine showing 4+ ketones which may be due to to dehydration with nausea and vomiting. Patient received IV fluids and symptomatic treatment in ER. Upon reevaluation, patient stating symptoms have improved and would like to be discharged. Return parameters discussed. Zofran prescribed. Patient discharged in stable condition with follow-up to PCP. Patient verbally expressed understanding and agreement with care plan. Undiagnosed new problem with uncertain prognosis? @ -No Drug Therapy requiring intensive monitoring for toxicity (Heparin, Nitro, Insulin, Cardizem)? @ -No Were any procedures done? @ -No Diagnosis/symptom? @ -Nausea and vomiting/abdominal pain Acute, or Chronic, or Acute on Chronic? @ -Acute Uncomplicated (without systemic symptoms) or Complicated (systemic symptoms)? @ -Uncomplicated Side effects of treatment? @ -No Exacerbation, Progression, or Severe Exacerbation? @ -No Poses a threat to life or bodily function? How? (Chest pain, [place], [place], pneumonia, PE, COPD, DKA, ARF, appy, cholecystitis, CVA, Diverticulitis, Homicidal, Suicidal, threat to staff... and all critical care pts) @ -No - Lab Data Result diagrams: 08/13/23 00:30 08/13/23 00:30 Lab Results 08/13/23 08/13/23 08/13/23 Range/Units 00:30 00:30 00:30 WBC 15.4 H (3.8-10.6) k/uL RBC 3.96 (3.80-5.40) m/uL Hgb 11.6 (11.4-16.0) gm/dL Hct 34.9 (34.0-46.0) % MCV 88.2 (80.0-100.0) fL MCH 29.3 (25.0-35.0) pg MCHC 33.3 (31.0-37.0) g/dL RDW 12.6 (11.5-15.5) % Plt Count 167 (150-450) k/uL MPV 9.1 Neutrophils % 88 % Lymphocytes % 6 % Monocytes % 5 % Eosinophils % 0 % Basophils % 0 % Neutrophils # 13.6 H (1.3-7.7) k/uL Lymphocytes # 1.0 (1.0-4.8) k/uL Monocytes # 0.7 (0-1.0) k/uL Eosinophils # 0.0 (0-0.7) k/uL Basophils # 0.0 (0-0.2) k/uL Sodium 140 (137-145) mmol/L Potassium 3.0 L (3.5-5.1) mmol/L Chloride 109 H (98-107) mmol/L Carbon Dioxide 21 L (22-30) mmol/L Anion Gap 10 mmol/L BUN 11 (7-17) mg/dL Creatinine 0.54 (0.52-1.04) mg/dL Est GFR (CKD-EPI)AfAm >90 (>60 ml/min/1.73 sqM) Est GFR (CKD-EPI)NonAf >90 (>60 ml/min/1.73 sqM) Glucose 92 (74-99) mg/dL Plasma Lactic Acid Ilya 0.8 (0.7-2.0) mmol/L Calcium 8.3 L (8.4-10.2) mg/dL Total Bilirubin 0.6 (0.2-1.3) mg/dL AST 18 (14-36) U/L ALT 15 (4-34) U/L Alkaline Phosphatase 59 (38-126) U/L Total Protein 6.4 (6.3-8.2) g/dL Albumin 4.0 (3.5-5.0) g/dL Amylase 90 (30-110) U/L Lipase 205 (23-300) U/L Urine Color Urine Appearance (Clear) Urine pH (5.0-8.0) Ur Specific [place] (1.001-1.035) Urine Protein (Negative) Urine Glucose (UA) (Negative) Urine Ketones (Negative) Urine Blood (Negative) Urine Nitrite (Negative) Urine Bilirubin (Negative) Urine Urobilinogen (<2.0) mg/dL Ur Leukocyte Esterase (Negative) Urine HCG, Qual (Not Detectd) 08/13/23 08/13/23 Range/Units 02:10 02:10 WBC (3.8-10.6) k/uL RBC (3.80-5.40) m/uL Hgb (11.4-16.0) gm/dL Hct (34.0-46.0) % MCV (80.0-100.0) fL MCH (25.0-35.0) pg MCHC (31.0-37.0) g/dL RDW (11.5-15.5) % Plt Count (150-450) k/uL MPV Neutrophils % % Lymphocytes % % Monocytes % % Eosinophils % % Basophils % % Neutrophils # (1.3-7.7) k/uL Lymphocytes # (1.0-4.8) k/uL Monocytes # (0-1.0) k/uL Eosinophils # (0-0.7) k/uL Basophils # (0-0.2) k/uL Sodium (137-145) mmol/L Potassium (3.5-5.1) mmol/L Chloride (98-107) mmol/L Carbon Dioxide (22-30) mmol/L Anion Gap mmol/L BUN (7-17) mg/dL Creatinine (0.52-1.04) mg/dL Est GFR (CKD-EPI)AfAm (>60 ml/min/1.73 sqM) Est GFR (CKD-EPI)NonAf (>60 ml/min/1.73 sqM) Glucose (74-99) mg/dL Plasma Lactic Acid Ilya (0.7-2.0) mmol/L Calcium (8.4-10.2) mg/dL Total Bilirubin (0.2-1.3) mg/dL AST (14-36) U/L ALT (4-34) U/L Alkaline Phosphatase (38-126) U/L Total Protein (6.3-8.2) g/dL Albumin (3.5-5.0) g/dL Amylase (30-110) U/L Lipase (23-300) U/L Urine Color Light Yellow Urine Appearance Clear (Clear) Urine pH 6.5 (5.0-8.0) Ur Specific [place] 1.026 (1.001-1.035) Urine Protein Trace H (Negative) Urine Glucose (UA) Negative (Negative) Urine Ketones 4+ H (Negative) Urine Blood Negative (Negative) Urine Nitrite Negative (Negative) Urine Bilirubin Negative (Negative) Urine Urobilinogen 3.0 (<2.0) mg/dL Ur Leukocyte Esterase Negative (Negative) Urine HCG, Qual Not Detected (Not Detectd) Disposition Clinical Impression: Nausea and vomiting, Abdominal pain Disposition: HOME SELF-CARE Condition: Stable Instructions (If sedation given, give patient instructions): Abdominal Pain (ED) Additional Instructions: Follow-up with PCP. Return to ER for any new or worsening symptoms. Is patient prescribed a controlled substance at d/c from ED?: No Referrals: Terry Rivera MD [Primary Care Provider] - 1-2 days Time of Disposition: 02:21
[2023-08-13] MEDS: ONDANSETRON 4 MG/2 ML VIAL IVP STA (00:41)
[2023-08-13] MEDS: SODIUM CHLORIDE 0.9% 1,000 ML IV STA (00:44)
[2023-08-13] MEDS: HYDROmorphone 0.5 MG/0.5 ML SYRINGE IVP STA ×2 (00:45→02:02)
[2023-08-13 01:19] LABS: ALT 15 U/L (4-34); AST 18 U/L (14-36); African American GFR (CKD) >90 (>60 ml/min/1.73 sqM); Alkaline Phosphatase 59 U/L (38-126); Amylase 90 U/L (30-110); Anion Gap 10 mmol/L; Blood Urea Nitrogen 11 mg/dL (7-17); Calcium 8.3 mg/dL (8.4-10.2); Carbon Dioxide 21 mmol/L (22-30); Chloride 109 mmol/L (98-107); Glucose 92 mg/dL (74-99); Lipase 205 U/L (23-300); Non-African American GFR(CKD) >90 (>60 ml/min/1.73 sqM); Sodium 140 mmol/L (137-145); Total Bilirubin 0.6 mg/dL (0.2-1.3); Total Protein 6.4 g/dL (6.3-8.2)
[2023-08-13 01:20] LABS: Basophils % (A) 0 %; Eosinophils % (A) 0 %; HCT 34.9 % (34.0-46.0); HGB 11.6 gm/dL (11.4-16.0); Lymphocytes % (A) 6 %; MCH 29.3 pg (25.0-35.0); MCHC 33.3 g/dL (31.0-37.0); MCV 88.2 fL (80.0-100.0); Mean Platelet Volume 9.1; Monocytes # (A) 0.7 k/uL (0-1.0); Monocytes % (A) 5 %; Neutrophils # (A) 13.6 k/uL (1.3-7.7); Neutrophils % (A) 88 %; Platelet Count 167 k/uL (150-450); RBC 3.96 m/uL (3.80-5.40); RDW 12.6 % (11.5-15.5); WBC 15.4 k/uL (3.8-10.6)
[2023-08-13] MEDS: ONDANSETRON 4 MG ODT STARTER PACK 2 TAB BTL PO STA (02:33)
[2023-08-13 02:40] VITALS: BP 114/61; PULSE 74; RESP 18
[2023-08-13 03:21] LABS: Appearance,Urine Clear (Clear); Bilirubin,Urine Negative (Negative); Blood,Urine Negative (Negative); Color,Urine Light Yellow; Glucose,Urine (UA) Negative (Negative); Ketones,Urine 4+ (Negative); Leukocyte Esterase,Urine Negative (Negative); Nitrite,Urine Negative (Negative); PH, Urine 6.5 (5.0-8.0); Protein,Urine Trace (Negative); Specific Gravity,Urine 1.026 (1.001-1.035)
== END 2023-08-13 02:40 | disposition home or self-care (01) ==
LOC: EC 23:20
DX: R10.10 Upper abdominal pain, unspecified (principal); R11.2 Nausea with vomiting, unspecified; F12.90 Cannabis use, unspecified, uncomplicated
CPT/HCPCS: 36415; 80053; 82150; 83605; 83690; 85025; 81003; 81025; 99284; 96374; 96375; 96376; 96361; J2405; S0119; J1170

== ENCOUNTER 2023-08-13 23:37 | Observation (INO) | payer OTHER ==
[2023-08-14] MEDS: ONDANSETRON 4 MG/2 ML VIAL IVP STA (00:29)
[2023-08-14] MEDS: SODIUM CHLORIDE 0.9% 1,000 ML IV STA (00:29)
[2023-08-14] MEDS: MORPHINE SULFATE 4 MG/ML SYRINGE IV STA (00:30)
[2023-08-14 00:46] LABS: Basophils % (A) 0 %; Eosinophils % (A) 0 %; HCT 36.9 % (34.0-46.0); HGB 12.4 gm/dL (11.4-16.0); Lymphocytes % (A) 9 %; MCH 29.8 pg (25.0-35.0); MCHC 33.8 g/dL (31.0-37.0); MCV 88.2 fL (80.0-100.0); Mean Platelet Volume 8.9; Monocytes # (A) 0.5 k/uL (0-1.0); Monocytes % (A) 4 %; Neutrophils % (A) 86 %; Platelet Count 199 k/uL (150-450); RBC 4.18 m/uL (3.80-5.40); RDW 12.4 % (11.5-15.5); WBC 11.6 k/uL (3.8-10.6)
[2023-08-14 01:19] LABS: Chloride 105 mmol/L (98-107)
[2023-08-14 01:22] LABS: ALT 17 U/L (4-34); AST 19 U/L (14-36); African American GFR (CKD) >90 (>60 ml/min/1.73 sqM); Albumin 4.4 g/dL (3.5-5.0); Alkaline Phosphatase 71 U/L (38-126); Amylase 84 U/L (30-110); Anion Gap 15 mmol/L; Blood Urea Nitrogen 8 mg/dL (7-17); Calcium 8.8 mg/dL (8.4-10.2); Carbon Dioxide 17 mmol/L (22-30); Glucose 93 mg/dL (74-99); Lipase 138 U/L (23-300); Non-African American GFR(CKD) >90 (>60 ml/min/1.73 sqM); Sodium 137 mmol/L (137-145); Total Bilirubin 0.9 mg/dL (0.2-1.3); Total Protein 6.8 g/dL (6.3-8.2)
[2023-08-14] MEDS ORDERED: ACETAMINOPHEN TAB 325 MG TAB PO PRN (01:48)
[2023-08-14] MEDS ORDERED: NALOXONE 0.4 MG/ML 1 ML VIAL IV PRN (01:48)
--- NOTE | 2023-08-14 01:53 | ED ---
General Adult HPI - General Chief complaint: Nausea/Vomiting/Diarrhea Stated complaint: Vomiting,Abd pain Time Seen by Provider: 08/13/23 23:47 Source: patient, RN notes reviewed, old records reviewed Mode of arrival: ambulatory Limitations: no limitations - History of Present Illness Initial comments: 28-year-old female with history of pancreatitis and chronic abdominal pain presents with persistent abdominal pain, nausea vomiting. Patient has been seen in the emergency department 3 times in the previous 3 days. She continues to have symptoms. No fever. She does admit to daily marijuana use, denies alcohol use. Symptoms have been persistent over the past 4 days. - Related Data Home Medications Medication Instructions Recorded Confirmed Famotidine [Pepcid] 20 mg PO BID PRN 05/07/23 05/07/23 Ondansetron Odt [Zofran ODT] 4 mg PO Q8H PRN 05/07/23 05/07/23 Previous Rx's Medication Instructions Recorded Ondansetron Odt [Zofran Odt] 4 mg PO Q8HR PRN #15 tab 06/03/23 Allergies Allergy/AdvReac Type Severity Reaction Status Date / Time No Known Allergies Allergy Verified 08/13/23 23:43 Review of Systems ROS Statement: Those systems with pertinent positive or pertinent negative responses have been documented in the HPI. ROS Other: All systems not noted in ROS Statement are negative. Past Medical History Past Medical History: GERD/Reflux Additional Past Medical History / Comment(s): MIGRAINES, BACK PAIN. 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 No other history of STDs. Pancreatitis. History of Any Multi-Drug Resistant Organisms: None Reported Past Surgical History: Cholecystectomy, Hernia Repair Additional Past Surgical History / Comment(s): Hiatal hernia repair. Past Anesthesia/Blood Transfusion Reactions: Motion Sickness Additional Past Anesthesia/Blood Transfusion Reaction / Comment(s): NO ANESTHESIA HX Past Psychological History: Anxiety Smoking Status: Never smoker Past Alcohol Use History: Occasional Past Drug Use History: Marijuana - Past Family History Mother Family Medical History: No Reported History Additional Family Medical History / Comment(s): Maternal grandmother had colon cancer. A maternal great grandmother had breast cancer. Father Family Medical History: Hypertension General Exam Limitations: no limitations General appearance: alert, in no apparent distress Head exam: Present: atraumatic, normocephalic Eye exam: Present: normal appearance, PERRL Respiratory exam: Present: normal lung sounds bilaterally. Absent: respiratory distress Cardiovascular Exam: Present: regular rate, normal rhythm GI/Abdominal exam: Present: soft, tenderness (epigastric). Absent: distended Neurological exam: Present: alert, oriented X3 Psychiatric exam: Present: normal affect, normal mood Skin exam: Present: warm, dry Course Vital Signs 08/13/23 23:42 Temperature 99.2 F Pulse Rate 69 Respiratory 18 Rate O2 Sat by Pulse 97 Oximetry Medical Decision Making - Medical Decision Making Was pt. sent in by a medical professional or institution (, TING, PROTEIN CHEMIST, urgent care, hospital, or jail...) When possible be specific @ -No Did you speak to anyone other than the patient for history (EMS, parent, family, police, friend...)? What history was obtained from this source @ -No Did you review nursing and triage notes (agree or disagree)? Why? @ -I reviewed and agree with nursing and triage notes Were old charts reviewed (outside hosp., previous admission, EMS record, old EKG, old radiological studies, urgent care reports/EKG's, jail records)? Report findings @ -No old charts were reviewed Differential Abdominal Pain Women: Appendicitis, Cholecystitis, diverticulosis, ischemic bowel, pancreatitis, hepatitis, UTI, gastroenteritis, AAA, incarcerated hernia, bowel obstruction, constipation, inflammatory bowel, hepatitis, peptic ulcer disease, splenic infarction, perforated viscus, vulvitis, ovarian torsion, PID, kidney stone, placenta abruption, this is not meant to be an all-inclusive list EKG interpreted by me (3pts min.). @ -As above X-rays interpreted by me (1pt min.). @ -None done CT interpreted by me (1pt min.). @ -None done U/S interpreted by me (1pt. min.). @ -None done What testing was considered but not performed or refused? (CT, X-rays, U/S, labs)? Why? @ -None What meds were considered but not given or refused? Why? @ -None Did you discuss the management of the patient with other professionals (professionals i.e. TING Ghosh, PROTEIN CHEMIST, lab, RT, psych nurse, drug abuse social worker, office manager executive assistant, teacher, disability hearing officer, assistant case manager)? Give summary @ -Dr. Rivera Was smoking cessation discussed for >3mins.? @ -No Was critical care preformed (if so, how long)? @ -No Were there social determinants of health that impacted care today? How? (Homelessness, low income, unemployed, alcoholism, drug addiction, tra nsportation, low edu. Level, literacy, decrease access to med. care, shelter, rehab)? @ -No Was there de-escalation of care discussed even if they declined (Discuss DNR or withdrawal of care, Hospice)? DNR status @ -No What co-morbidities impacted this encounter? (DM, HTN, Smoking, COPD, CAD, Cancer, CVA, ARF, Chemo, Hep., AIDS, mental health diagnosis, sleep apnea, morbid obesity)? @ -History of chronic abdominal pain, pancreatitis Was patient admitted / discharged? Hospital course, mention meds given and route, prescriptions, significant lab abnormalities, going to OR and other pertinent info. @ -Patient admitted for supportive measures and continued treatment of intractable nausea vomiting and abdominal pain. Laboratory studies reveal mildly elevated white blood cell count which is d owntrending, she is acidotic with a CO2 of 17. Potassium is 3 and is replaced. Urinalysis and urine test are pending but were unremarkable on previous visit. Undiagnosed new problem with uncertain prognosis? @ -No Drug Therapy requiring intensive monitoring for toxicity (Heparin, Nitro, Insulin, Cardizem)? @ -No Were any procedures done? @ -No Diagnosis/symptom? @Abdominal pain, nausea vomiting Acute, or Chronic, or Acute on Chronic? @ -Acute on chronic Uncomplicated (without systemic symptoms) or Complicated (systemic symptoms)? @ -Default Side effects of treatment? @ -No Exacerbation, Progression, or Severe Exacerbation? @ -No Poses a threat to life or bodily function? How? (Chest pain, [place], CO, pneumonia, PE, COPD, DKA, ARF, appy, cholecystitis, CVA, Diverticulitis, Homicidal, Suicidal, threat to staff... and all critical care pts) @ -No - Lab Data Result diagrams: 08/14/23 00:28 08/14/23 00:28 Lab Results 08/14/23 08/14/23 Range/Units 00:28 00:28 WBC 11.6 H (3.8-10.6) k/uL RBC 4.18 (3.80-5.40) m/uL Hgb 12.4 (11.4-16.0) gm/dL Hct 36.9 (34.0-46.0) % MCV 88.2 (80.0-100.0) fL MCH 29.8 (25.0-35.0) pg MCHC 33.8 (31.0-37.0) g/dL RDW 12.4 (11.5-15.5) % Plt Count 199 (150-450) k/uL MPV 8.9 Neutrophils % 86 % Lymphocytes % 9 % Monocytes % 4 % Eosinophils % 0 % Basophils % 0 % Neutrophils # 10.0 H (1.3-7.7) k/uL Lymphocytes # 1.0 (1.0-4.8) k/uL Monocytes # 0.5 (0-1.0) k/uL Eosinophils # 0.0 (0-0.7) k/uL Basophils # 0.0 (0-0.2) k/uL Sodium 137 (137-145) mmol/L Potassium 3.0 L (3.5-5.1) mmol/L Chloride 105 (98-107) mmol/L Carbon Dioxide 17 L (22-30) mmol/L Anion Gap 15 mmol/L BUN 8 (7-17) mg/dL Creatinine 0.46 L (0.52-1.04) mg/dL Est GFR (CKD-EPI)AfAm >90 (>60 ml/min/1.73 sqM) Est GFR (CKD-EPI)NonAf >90 (>60 ml/min/1.73 sqM) Glucose 93 (74-99) mg/dL Calcium 8.8 (8.4-10.2) mg/dL Total Bilirubin 0.9 (0.2-1.3) mg/dL AST 19 (14-36) U/L ALT 17 (4-34) U/L Alkaline Phosphatase 71 (38-126) U/L Total Protein 6.8 (6.3-8.2) g/dL Albumin 4.4 (3.5-5.0) g/dL Amylase 84 (30-110) U/L Lipase 138 (23-300) U/L Disposition Clinical Impression: Intractable nausea and vomiting, Abdominal pain Disposition: ADMITTED IP TO THIS HOSP Condition: Stable Is patient prescribed a controlled substance at d/c from ED?: No Referrals: Joni Rivera MD [Primary Care Provider] - 1-2 days Time of Disposition: 01:53
[2023-08-14] MEDS: SODIUM CHLORIDE 0.9% 1,000 ML IV SCH (02:01)
[2023-08-14] MEDS: MORPHINE SULFATE 4 MG/ML SYRINGE IVP STA (02:01)
[2023-08-14] MEDS: POTASSIUM CHLORIDE 10 MEQ in WATER FOR INJECTION 1 100ML.BAG IVPB SCH ×2 (02:39→15:57)
[2023-08-14 02:59] LABS: Amphetamine Screen,Urine Not Detected (NotDetected); Barbiturate Screen,Urine Not Detected (NotDetected); Benzodiazepines Screen,Urine Not Detected (NotDetected); Cocaine Screen,Urine Not Detected (NotDetected); Methadone Screen, Urine Not Detected (NotDetected); Opiate Screen,Urine Detected (NotDetected); Oxycodone Screen, Urine Not Detected (NotDetected); Phencyclidine Screen,Urine Not Detected (NotDetected); Tricyclic Antidepressant,Urine Not Detected (NotDetected); Urn Cannabinoid Scrn Detected (NotDetected)
[2023-08-14] MEDS: ONDANSETRON 4 MG/2 ML VIAL IVP PRN (03:35)
[2023-08-14] MEDS: MORPHINE SULFATE 4 MG/ML SYRINGE IV PRN (06:04)
[2023-08-14] MEDS: PANTOPRAZOLE 40 MG/10 ML VIAL IV SCH ×2 (09:08→20:38)
[2023-08-14] MEDS ORDERED: ONDANSETRON 4 MG/2 ML VIAL IVP PRN (09:16)
[2023-08-14] MEDS: HYDROmorphone 0.5 MG/0.5 ML SYRINGE IVP PRN (10:36)
[2023-08-14] MEDS: METOCLOPRAMIDE 5 MG/ML 2 ML VIAL IVP PRN (10:37)
--- NOTE | 2023-08-14 11:46 | P.CONS ---
History of Present Illness - Reason for Consult Consult date: 08/14/23 Intractable nausea/vomiting/abdominal pain Requesting physician: Terry Rivera - Chief Complaint Nausea and vomiting - History of Present Illness This is a pleasant 28-year-old female who has had multiple hospitalizations for nausea vomiting and abdominal pain. Patient states this has been ongoing and usually occurs about once a month. She will have nausea and vomiting where could be every 10 minutes. Patient states she has had the nausea and vomiting for 4 days now was seen in the emergency department on the nin and given IV fluids and sent home. She continued to have the nausea and vomiting and abdominal pain so she presented back to the emergency department. She was noted to be hypokalemic and was admitted to the hospital. She has been evaluated multiple times by general surgery and has undergone multiple upper endoscopies. Her last upper endoscopy with Dr. Yusuf on 01/20/2022 with findings of moderate hiatal hernia, gastritis and esophagitis. She is also been told in the past she has had pancreatitis looks like first time was back in 2022 with elevated Lipase and she is on sure of etiology. She is status post cholecystectomy 12/22/2021 for cholecystitis without findings of gallstones and in 2018 underwent laparoscopic Niesen fundoplication for GERD both with Dr. Yusuf. She was also admitted in May of this year and seen by general surgery for complaints of nausea vomiting and abdominal pain and found to have pancreatitis. She underwent MRI and MRCP of pancreas without any evidence of abdominal mass. No pancreatic divisum. Pancreatic duct normal limits and no evidence to suggest ductal stricture, choledocholithiasis or biliary ductal dilation. Small hiatal hernia noted. On this admission patient urine drug screen was positive for marijuana. Which has been positive on multiple other urine drug screen since 2019. Patient does admit to using cannabinoids/THC daily. She states that hot showers will improve her symptoms. On this admission patient was noted to have mildly elevated amylase and lipase, LFTs all normal. She denies any history of regular alcohol use or current alcohol abuse. Review of Systems REVIEW OF SYSTEMS: CARDIOPULMONARY: No chest pain or shortness of breath. Gastrointestinal: Epigastric discomfort. Nausea and vomiting. No hematemesis, coffee-ground emesis. No rectal bleeding, or melena. GENITOURINARY: No dysuria or hematuria. MUSCULOSKELETAL: Reports normal range of motion., Joint pain. SKIN: No rashes. No jaundice. ENDOCRINE: No chills, fevers. No excessive weight gain or loss. No polydipsia or polyuria. PSYCHIATRIC: Unremarkable. NEUROLOGY: No change in mental status. Denies dizziness, headache. ENT: Vision unremarkable. CONSTITUTIONAL: No recent weight loss. No fever, chills, night sweats. Past Medical History Past Medical History: GERD/Reflux Additional Past Medical History / Comment(s): MIGRAINES, BACK PAIN. 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 No other history of STDs. Pancreatitis. History of Any Multi-Drug Resistant Organisms: None Reported Past Surgical History: Cholecystectomy, Hernia Repair Additional Past Surgical History / Comment(s): Hiatal hernia repair. Past Anesthesia/Blood Transfusion Reactions: Motion Sickness Additional Past Anesthesia/Blood Transfusion Reaction / Comm: NO ANESTHESIA HX Past Psychological History: Anxiety Smoking Status: Never smoker Past Alcohol Use History: Occasional Past Drug Use History: Marijuana - Past Family History Mother Family Medical History: No Reported History Additional Family Medical History / Comment(s): Maternal grandmother had colon cancer. A maternal great grandmother had breast cancer. Father Family Medical History: Hypertension Medications and Allergies Home Medications Medication Instructions Recorded Confirmed Type Famotidine [Pepcid] 20 mg PO BID 05/07/23 08/14/23 History HYDROcodone/APAP 5-325MG [[place] 1 tab PO DAILY 08/14/23 08/14/23 History 5-325] Allergies Allergy/AdvReac Type Severity Reaction Status Date / Time No Known Allergies Allergy Verified 08/14/23 06:53 Physical Exam Vitals: Vital Signs Temp Pulse Pulse Resp BP BP Pulse Ox 08/14/23 07:20 98.7 F 67 18 160/88 98 08/14/23 06:53 98.3 F 71 18 108/83 99 08/14/23 02:08 73 18 116/67 97 08/13/23 23:42 99.2 F 69 18 97 Intake and Output 08/13/23 08/14/23 08/14/23 22:59 06:59 14:59 Other: Weight 58.967 kg General appearance: The patient is alert, oriented, appears in no acute distress. HET: Head is normocephalic and atraumatic. Conjunctiva pink. Sclera anicteric. Neck: Supple without lymphadenopathy. Trachea midline. Heart: Regular. Lungs: Equal expansion, normal respiratory effort. Abdomen: Soft, mild epigastric tenderness, nondistended. Skin: No rashes. No jaundice. Extremities: Normal skin color and turgor. No pedal edema. Neurological: No focal deficits. Alert and oriented x3. Results CBC & Chem 7: 08/14/23 00:28 08/14/23 12:32 Labs: Abnormal Lab Results - Last 24 Hours (Table) 08/14/23 08/14/23 08/14/23 Range/Units 00:28 00:28 02:13 WBC 11.6 H (3.8-10.6) k/uL Neutrophils # 10.0 H (1.3-7.7) k/uL Potassium 3.0 L (3.5-5.1) mmol/L Carbon Dioxide 17 L (22-30) mmol/L Creatinine 0.46 L (0.52-1.04) mg/dL Urine Opiates Screen Detected H (NotDetected) U Marijuana (THC) Screen Detected H (NotDetected) Assessment and Plan (1) Nausea and vomiting Narrative/Plan: 28-year-old female with multiple admissions for nausea vomiting and abdominal pain. Has had previous upper endoscopies reporting moderate hiatal hernia gastritis and esophagitis. Biopsies all just show some mild inflammation. She is also been noted in the past to have elevated lipase consistent with pancreatitis with unclear etiology. She has had previous cholecystectomy for a calculus cholecystitis, previous Niesen fundoplication for hiatal hernia and nausea and vomiting. Patient noted to have positive urine drug screen with marijuana as far back as 2019. Patient has cyclic vomiting which could very likely be secondary to cannabinoid use, stress and anxiety. Patient does report using daily, hot showers does relieve symptoms. Likely patient has secondary gastritis to the nausea and vomiting causing epigastric discomfort. Recommend marijuana abstinence and discussed with patient symptoms may continue for some time due to fat stores. Patient verbalizes understanding. Will change Zofran to [id number], add scopolamine patch and increase Protonix to twice a day. No plans on endoscopic evaluation. Current Visit: No Status: Acute Code(s): R11.2 - NAUSEA WITH VOMITING, UNSPECIFIED SNOMED Code(s): 75028843 (2) Epigastric pain Current Visit: Yes Status: Acute Code(s): R10.13 - EPIGASTRIC PAIN SNOMED Code(s): 81517177 Plan: 1. Continue symptomatic and supportive care 2. Antiemetics as needed 3. Increase Protonix to 40 mg twice a day 4. Add scopolamine patch 5. Change Zofran to scheduled 6. Recommend marijuana abstinence 7. Patient may have clear liquid diet, advance as tolerated 8. MOI, IgG and triglycerides ordered 9. Repeat BMP, replace potassium per protocol 10. No plans on endoscopic evaluation Thank you for this consultation, we will continue to follow. Dr. Joanna Osorio I agree with the dictator's note, documented as a scribe by Radha Nelson.
[2023-08-14] MEDS: ONDANSETRON 4 MG/2 ML VIAL IVP SCH (13:06)
[2023-08-14] MEDS: SCOPOLAMINE 1 MG/72 HR PATCH TRANSDERM SCH (13:06)
--- NOTE | 2023-08-14 14:48 | P.GSCN ---
History of Present Illness Consult date: 08/14/23 History of present illness: CHIEF COMPLAINT: Nausea vomiting and abdominal pain HISTORY OF PRESENT ILLNESS: This is a 28-year-old female with a known history of pancreatitis and chronic abdominal pain. She does have a history of cholecystectomy, Shobha fundoplication and last EGD was January 2022 which revealed gastritis, moderate hiatal hernia and esophagitis. Patient reports that she has had abdominal pain with nausea vomiting x 3 days. She has come to the ER 3 days in a row. Patient did have diarrhea on her first day of the nausea and vomiting. Diarrhea since then has stopped. She reports the pain is across the upper abdomen. Still feels similar to her pancreatitis episodes. Her lipase is normal. Patient uses marijuana daily. Patient does complain of a cough. She has had some mild episodes of reflux. Denies any difficulty with swallowing. Patient reports decreased appetite. PAST MEDICAL HISTORY: GERD/Reflux, MIGRAINES, BACK PAIN. 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 No other history of STDs. Pancreatitis. PAST SURGICAL HISTORY: Cholecystectomy, Hernia Repair MEDICATIONS: See below ALLERGIES: See below SOCIAL HISTORY: No illicit drug use. REVIEW OF SYSTEMS: CONSTITUTIONAL: Denies fever or chills. HEENT: Denies blurred vision, vision changes, or eye pain. Denies hemoptysis CARDIOVASCULAR: Denies chest pain or pressure. RESPIRATORY: No shortness of breath. GASTROINTESTINAL: See HPI for pertinent findings HEMATOLOGIC: Denies bleeding disorders. GENITOURINARY: Denies any blood in urine or increased urinary frequency. SKIN: Denies pruitis. Denies rash. PHYSICAL EXAM: VITAL SIGNS: Reviewed GENERAL: Well-developed in no acute distress. HEENT: No sclera icterus. Extraocular movements grossly intact. Moist buccal m ucosa. Head is atraumatic, normocephalic. No nasal drainage. ABDOMEN: Soft. Nondistended. Tenderness with palpation to the epigastric area NEUROLOGIC: Alert and oriented. Cranial nerves II through XII grossly intact. LABORATORY DATA: WBC 11.6 Hgb 12.4 platelets 199 Potassium 3.3 creatinine 0.46 LFTs and lipase within normal limits Urine drug screen opiates detected and marijuana detected Urine hCG not detected IMAGING: ASSESSMENT: 1. Epigastric abdominal pain with nausea vomiting and diarrhea 2. History of cholecystectomy 3. History of pancreatitis 4. Daily marijuana use 5. Hypokalemia PLAN: -Continue to correct potassium -Due to recurrent hypokalemia we will check magnesium level -Continue IV fluids to hydrate patient -Continue antiemetics. Reglan discontinued due to patient having side effects from the Reglan -Continue Protonix -continue pain management -Further recommendations forthcoming per surgeon Physician Fabric And Accessories Estimator note has been reviewed by physician. Signing provider agrees with the documented findings, assessment, and plan of care. Past Medical History Past Medical History: GERD/Reflux Additional Past Medical History / Comment(s): MIGRAINES, BACK PAIN. 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 No other history of STDs. Pancreatitis. History of Any Multi-Drug Resistant Organisms: None Reported Past Surgical History: Cholecystectomy, Hernia Repair Additional Past Surgical History / Comment(s): Hiatal hernia repair. Past Anesthesia/Blood Transfusion Reactions: Motion Sickness Additional Past Anesthesia/Blood Transfusion Reaction / Comm: NO ANESTHESIA HX Past Psychological History: Anxiety Smoking Status: Never smoker Past Alcohol Use History: Occasional Past Drug Use History: Marijuana - Past Family History Mother Family Medical History: No Reported History Additional Family Medical History / Comment(s): Maternal grandmother had colon cancer. A maternal great grandmother had breast cancer. Father Family Medical History: Hypertension Medications and Allergies Home Medications Medication Instructions Recorded Confirmed Type Famotidine [Pepcid] 20 mg PO BID 05/07/23 08/14/23 History HYDROcodone/APAP 5-325MG [[place] 1 tab PO DAILY 08/14/23 08/14/23 History 5-325] Allergies Allergy/AdvReac Type Severity Reaction Status Date / Time No Known Allergies Allergy Verified 08/14/23 06:53 Surgical - Exam Vital Signs Temp Pulse Resp Pulse Ox 99.2 F 69 18 97 08/13/23 23:42 08/13/23 23:42 08/13/23 23:42 08/13/23 23:42 Results - Labs 08/14/23 00:28 08/14/23 12:32 Abnormal Lab Results - Last 24 Hours (Table) 08/14/23 08/14/23 08/14/23 Range/Units 00:28 00:28 02:13 WBC 11.6 H (3.8-10.6) k/uL Neutrophils # 10.0 H (1.3-7.7) k/uL Potassium 3.0 L (3.5-5.1) mmol/L Carbon Dioxide 17 L (22-30) mmol/L Creatinine 0.46 L (0.52-1.04) mg/dL Urine Opiates Screen Detected H (NotDetected) U Marijuana (THC) Screen Detected H (NotDetected) 08/14/23 Range/Units 12:32 WBC (3.8-10.6) k/uL Neutrophils # (1.3-7.7) k/uL Potassium 3.3 L (3.5-5.1) mmol/L Carbon Dioxide (22-30) mmol/L Creatinine (0.52-1.04) mg/dL Urine Opiates Screen (NotDetected) U Marijuana (THC) Screen (NotDetected) Diabetes panel 08/14/23 08/14/23 Range/Units 00:28 12:32 Sodium 137 (137-145) mmol/L Potassium 3.0 L 3.3 L (3.5-5.1) mmol/L Chloride 105 (98-107) mmol/L Carbon Dioxide 17 L (22-30) mmol/L BUN 8 (7-17) mg/dL Creatinine 0.46 L (0.52-1.04) mg/dL Glucose 93 (74-99) mg/dL Calcium 8.8 (8.4-10.2) mg/dL AST 19 (14-36) U/L ALT 17 (4-34) U/L Alkaline Phosphatase 71 (38-126) U/L Total Protein 6.8 (6.3-8.2) g/dL Albumin 4.4 (3.5-5.0) g/dL Calcium panel 08/14/23 Range/Units 00:28 Calcium 8.8 (8.4-10.2) mg/dL Albumin 4.4 (3.5-5.0) g/dL Pituitary panel 08/14/23 08/14/23 Range/Units 00:28 12:32 Sodium 137 (137-145) mmol/L Potassium 3.0 L 3.3 L (3.5-5.1) mmol/L Chloride 105 (98-107) mmol/L Carbon Dioxide 17 L (22-30) mmol/L BUN 8 (7-17) mg/dL Creatinine 0.46 L (0.52-1.04) mg/dL Glucose 93 (74-99) mg/dL Calcium 8.8 (8.4-10.2) mg/dL Adrenal panel 08/14/23 08/14/23 Range/Units 00:28 12:32 Sodium 137 (137-145) mmol/L Potassium 3.0 L 3.3 L (3.5-5.1) mmol/L Chloride 105 (98-107) mmol/L Carbon Dioxide 17 L (22-30) mmol/L BUN 8 (7-17) mg/dL Creatinine 0.46 L (0.52-1.04) mg/dL Glucose 93 (74-99) mg/dL Calcium 8.8 (8.4-10.2) mg/dL Total Bilirubin 0.9 (0.2-1.3) mg/dL AST 19 (14-36) U/L ALT 17 (4-34) U/L Alkaline Phosphatase 71 (38-126) U/L Total Protein 6.8 (6.3-8.2) g/dL Albumin 4.4 (3.5-5.0) g/dL
--- NOTE | 2023-08-15 03:00 | HP ---
HISTORY AND PHYSICAL HISTORY OF PRESENT ILLNESS: This 28-year-old white female came in with abdominal pain, nausea, vomiting, abdominal pain, recurrent over the last couple of years. Continues to have nausea and vomiting for 2 to 3 days, hypokalemic, admitted for rehydration, potassium replacement. She had EGD on 01/20/2022 shows moderate gastroesophagitis, laparoscopic Shobha fundoplication for GERD, history of small hiatal hernia. She uses cannabis daily but does not think this is her problem. Hot showers improve her symptoms. History of mildly elevated lipase and amylase. PAST MEDICAL HISTORY: GERD, migraines, cholecystectomy, hernia repair. FAMILY HISTORY: Mother, father hypertension. Grandmother, colon cancer, breast cancer. HOME MEDICINES: Pepcid 20 b.i.d. and [place] 5/325 one daily. ALLERGIES: Negative. PHYSICAL EXAMINATION: VITAL SIGNS: Blood pressure 108 to 116 over 67 to 83, pulse 70s to 80s, temp 98.7, respiratory rate 16 to 18. HEENT: Normocephalic, atraumatic. HEART: Regular rate and rhythm. LUNGS: Normal respiratory effort. ABDOMEN: Soft, nondistended. SKIN: No rash, excoriation, or bruising. EXTREMITIES: No edema. NEUROLOGIC: Cranial nerves intact White count 7.6, hemoglobin is 12.4. ASSESSMENT: Nausea and vomiting, unclear etiology. She has a history of hiatal hernia. She has to quit marijuana which patient does not think is causing a problem. Cyclic vomiting, could be secondary to severe anxiety, possible gastritis, status post Shobha fundoplication, epigastric pain. An MS supportive care Protonix 40 b.i.d., scopolamine patch, Zofran, clear liquids, advance as tolerated pain an IgG, triglycerides ordered BNP potassium placement. They are not planned scope. Under prognosis guarded. Continue to watch overnight. MMODL / IJN: [id number] /
[2023-08-15 09:57] LABS: ALT 86 U/L (4-34); AST 54 U/L (14-36); African American GFR (CKD) >90 (>60 ml/min/1.73 sqM); Albumin 3.5 g/dL (3.5-5.0); Albumin/Globulin Ratio 1.5; Alkaline Phosphatase 73 U/L (38-126); Anion Gap 11 mmol/L; Blood Urea Nitrogen 7 mg/dL (7-17); Carbon Dioxide 17 mmol/L (22-30); Chloride 106 mmol/L (98-107); Globulin 2.4 g/dL; Glucose 60 mg/dL (74-99); Non-African American GFR(CKD) >90 (>60 ml/min/1.73 sqM); Potassium 3.5 mmol/L (3.5-5.1); Sodium 134 mmol/L (137-145); Total Bilirubin 0.7 mg/dL (0.2-1.3); Total Protein 5.9 g/dL (6.3-8.2)
[2023-08-15 10:48] LABS: Basophils # (A) 0.1 k/uL (0-0.2); Basophils % (A) 1 %; Eosinophils % (A) 0 %; HCT 39.1 % (34.0-46.0); HGB 12.8 gm/dL (11.4-16.0); Lymphocytes # (A) 1.5 k/uL (1.0-4.8); Lymphocytes % (A) 21 %; MCH 29.2 pg (25.0-35.0); MCHC 32.8 g/dL (31.0-37.0); Mean Platelet Volume 9.6; Monocytes # (A) 0.4 k/uL (0-1.0); Monocytes % (A) 6 %; Neutrophils # (A) 4.9 k/uL (1.3-7.7); Neutrophils % (A) 70 %; Platelet Count 214 k/uL (150-450); RBC 4.39 m/uL (3.80-5.40); RDW 12.4 % (11.5-15.5); WBC 7.1 k/uL (3.8-10.6)
--- NOTE | 2023-08-15 16:35 | P.PN ---
Subjective Progress Note Date: 08/15/23 Principal diagnosis: Nausea and vomiting This is a pleasant 28-year-old female who has had multiple hospitalizations for nausea vomiting and abdominal pain. Patient states this has been ongoing and usually occurs about once a month. She will have nausea and vomiting where coul d be every 10 minutes. Patient states she has had the nausea and vomiting for 4 days now was seen in the emergency department on the ninth and given IV fluids and sent home. She continued to have the nausea and vomiting and abdominal pain so she presented back to the emergency department. She was noted to be hypokalemic and was admitted to the hospital. She has been evaluated multiple times by general surgery and has undergone multiple upper endoscopies. Her last upper endoscopy with Dr. Yusuf on 01/20/2022 with findings of moderate hiatal hernia, gastritis and esophagitis. She is also been told in the past she has had pancreatitis looks like first time was back in 2022 with elevated Lipase and she is on sure of etiology. She is status post cholecystectomy 12/22/2021 for cholecystitis without findings of gallstones and in 2018 underwent laparoscopic Niesen fundoplication for GERD both with Dr. Yusuf. She was also admitted in May of this year and seen by general surgery for complaints of nausea vomiting and abdominal pain and found to have pancreatitis. She underwent MRI and MRCP of pancreas without any evidence of abdominal mass. No pancreatic divisum. Pancreatic duct normal limits and no evidence to suggest ductal stricture, choledocholithiasis or biliary ductal dilation. Small hiatal hernia noted. On this admission patient urine drug screen was positive for marijuana. Which has been positive on multiple other urine drug screen since 2019. Patient does admit to using cannabinoids/THC daily. She states that hot showers will improve her symptoms. On this admission patient was noted to have mildly elevated amylase and lipase, LFTs all normal. She denies any history of regular alcohol use or current alcohol abuse. 08/15/2023 Patient seen and examined today as a follow-up. When patient was evaluated earlier today she was laying in bed when sleeping. Apparently general surgery was consulted as they have followed patient in the past. They had ordered upper GI with small bowel follow-through however patient is refusing. She states that she is having nausea but no vomiting. Patient remains on IV Dilaudid requesting every 4 hours. Objective - Vital Signs Vital signs: Vital Signs Temp 98.3 F 08/15/23 13:30 Pulse 61 08/15/23 14:00 Resp 15 08/15/23 14:00 BP 97/58 08/15/23 13:30 Pulse Ox 97 08/15/23 13:30 FiO2 Intake & Output 08/14/23 08/15/23 08/15/23 18:59 06:59 18:59 Weight 58.967 kg Other: Voiding Method Toilet # Voids 2 1 3 - Exam General appearance: The patient is alert, oriented, appears in no acute distress. HET: Head is normocephalic and atraumatic. Conjunctiva pink. Sclera anicteric. Neck: Supple without lymphadenopathy. Abdomen: Soft, mild epigastric tenderness, nondistended. Extremities: Normal skin color and turgor. No pedal edema Skin: No rashes, no jaundice Neurological: No focal deficits. Alert and oriented. - Labs CBC & Chem 7: 08/15/23 08:41 08/15/23 08:41 Labs: Abnormal Lab Results - Last 24 Hours (Table) 08/14/23 08/15/23 Range/Units 10:29 08:41 Sodium 134 L (137-145) mmol/L Carbon Dioxide 17 L (22-30) mmol/L Creatinine 0.44 L (0.52-1.04) mg/dL Glucose 60 L (74-99) mg/dL Calcium 8.0 L (8.4-10.2) mg/dL AST 54 H (14-36) U/L ALT 86 H (4-34) U/L Total Protein 5.9 L (6.3-8.2) g/dL IgG1 378.00 L (382.40-928.60) mg/dL IgG2 216.70 L (241.80-700.30) mg/dL IgG3 11.10 L (21.82-176.00) mg/dL Assessment and Plan (1) Nausea and vomiting Narrative/Plan: 28-year-old female with multiple admissions for nausea vomiting and abdominal pain. Has had previous upper endoscopies reporting moderate hiatal hernia gastritis and esophagitis. Biopsies all just show some mild inflammation. She is also been noted in the past to have elevated lipase consistent with pancreatitis with unclear etiology. She has had previous cholecystectomy for a calculus cholecystitis, previous Niesen fundoplication for hiatal hernia and nausea and vomiting. Patient noted to have positive urine drug screen with marijuana as far back as 2019. Patient has cyclic vomiting which could very likely be secondary to cannabinoid use, stress and anxiety. Patient does report using daily, hot showers does relieve symptoms. Likely patient has secondary gastritis to the nausea and vomiting causing epigastric discomfort. Recommend marijuana abstinence and discussed with patient symptoms may continue for some time due to fat stores. Patient verbalizes understanding. Will change Zofran to [id number], add scopolamine patch and increase Protonix to twice a day. No plans on endoscopic evaluation. Current Visit: No Status: Acute Code(s): R11.2 - NAUSEA WITH VOMITING, UNSPECIFIED SNOMED Code(s): 89046887 (2) Epigastric pain Current Visit: Yes Status: Acute Code(s): R10.13 - EPIGASTRIC PAIN SNOMED Code(s): 62531089 (3) History of pancreatitis Narrative/Plan: Autoimmune markers ordered and negative. Triglycerides normal. Current Visit: Yes Status: Acute Code(s): Z87.19 - PERSONAL HISTORY OF OTHER DISEASES OF THE DIGESTIVE SYSTEM SNOMED Code(s): 03268335641947 Plan: 1. Continue symptomatic and supportive care 2. Antiemetics as needed 3. Increase Protonix to 40 mg twice a day 4. Continue scopolamine patch 5. Change Zofran to scheduled 6. Recommend marijuana abstinence 7. Diet as tolerated 8. Continue with recommendations by general surgery 9. No plans on endoscopic evaluation 10. Upper GI with follow-through ordered by general surgery however patient is refusing 11. MOI, IgG ordered and reviewed without any evidence of autoimmune pancreatitis. Triglycerides normal. Potassium improved. Thank you for this consultation, we will continue to follow. Dr. Joanna Osorio I agree with the dictator's note, documented as a scribe by Radha Nelson.
--- NOTE | 2023-08-15 16:37 | P.PN ---
Subjective Progress Note Date: 08/15/23 CHIEF COMPLAINT: Abdominal pain with nausea and vomiting HISTORY OF PRESENT ILLNESS: Patient continues to complain of epigastric abdominal pain with nausea. She has had no further vomiting. No bowel move ment. She is having flatus. She refused to have the upper GI with small bowel follow-through completed. Afebrile. WBC 7.1 Hgb 12.8 potassium is better at 3.5 magnesium 2.6 AST 54 ALT 86 PHYSICAL EXAM: VITAL SIGNS: Reviewed. GENERAL: Well-developed in no acute distress. ABDOMEN: Soft. Nondistended. Epigastric tenderness NEUROLOGIC: Alert and oriented. Cranial nerves II through XII grossly intact. ASSESSMENT: 1. Abdominal pain with nausea and vomiting PLAN: -Start clear liquid diet and advance as tolerated -GI recommendations noted -Patient refused upper GI with small bowel follow-through -Continue supportive care -No surgical intervention planned Physician Lan Specialist note has been reviewed by physician. Signing provider agrees with the documented findings, assessment, and plan of care. Objective - Vital Signs Vital signs: Vital Signs Temp 98.3 F 08/15/23 13:30 Pulse 61 08/15/23 14:00 Resp 15 08/15/23 14:00 BP 97/58 08/15/23 13:30 Pulse Ox 97 08/15/23 13:30 FiO2 Intake & Output 08/14/23 08/15/23 08/15/23 18:59 06:59 18:59 Weight 58.967 kg Other: Voiding Method Toilet # Voids 2 1 3 - Labs CBC & Chem 7: 08/15/23 08:41 08/15/23 08:41 Labs: Abnormal Lab Results - Last 24 Hours (Table) 08/14/23 08/15/23 Range/Units 10:29 08:41 Sodium 134 L (137-145) mmol/L Carbon Dioxide 17 L (22-30) mmol/L Creatinine 0.44 L (0.52-1.04) mg/dL Glucose 60 L (74-99) mg/dL Calcium 8.0 L (8.4-10.2) mg/dL AST 54 H (14-36) U/L ALT 86 H (4-34) U/L Total Protein 5.9 L (6.3-8.2) g/dL IgG1 378.00 L (382.40-928.60) mg/dL IgG2 216.70 L (241.80-700.30) mg/dL IgG3 11.10 L (21.82-176.00) mg/dL
[2023-08-16 08:57] VITALS: BP 125/80; PULSE 67; RESP 16; TEMP 98.1
--- NOTE | 2023-08-16 12:39 | P.PN ---
Subjective Progress Note Date: 08/16/23 Principal diagnosis: Nausea and vomiting This is a pleasant 28-year-old female who has had multiple hospitalizations for nausea vomiting and abdominal pain. Patient states this has been ongoing and usually occurs about once a month. She will have nausea and vomiting where coul d be every 10 minutes. Patient states she has had the nausea and vomiting for 4 days now was seen in the emergency department on the ninth and given IV fluids and sent home. She continued to have the nausea and vomiting and abdominal pain so she presented back to the emergency department. She was noted to be hypokalemic and was admitted to the hospital. She has been evaluated multiple times by general surgery and has undergone multiple upper endoscopies. Her last upper endoscopy with Dr. Yusuf on 01/20/2022 with findings of moderate hiatal hernia, gastritis and esophagitis. She is also been told in the past she has had pancreatitis looks like first time was back in 2022 with elevated Lipase and she is on sure of etiology. She is status post cholecystectomy 12/22/2021 for cholecystitis without findings of gallstones and in 2018 underwent laparoscopic Niesen fundoplication for GERD both with Dr. Yusuf. She was also admitted in May of this year and seen by general surgery for complaints of nausea vomiting and abdominal pain and found to have pancreatitis. She underwent MRI and MRCP of pancreas without any evidence of abdominal mass. No pancreatic divisum. Pancreatic duct normal limits and no evidence to suggest ductal stricture, choledocholithiasis or biliary ductal dilation. Small hiatal hernia noted. On this admission patient urine drug screen was positive for marijuana. Which has been positive on multiple other urine drug screen since 2019. Patient does admit to using cannabinoids/THC daily. She states that hot showers will improve her symptoms. On this admission patient was noted to have mildly elevated amylase and lipase, LFTs all normal. She denies any history of regular alcohol use or current alcohol abuse. 08/15/2023 Patient seen and examined today as a follow-up. When patient was evaluated earlier today she was laying in bed when sleeping. Apparently general surgery was consulted as they have followed patient in the past. They had ordered upper GI with small bowel follow-through however patient is refusing. She states that she is having nausea but no vomiting. Patient remains on IV Dilaudid requesting every 4 hours. 08/16/2023 Patient seen and examined today as a follow-up. Patient was resting comfortably with her eyes closed when entering the room. She states she still having abdominal pain and nausea but no vomiting. Taking in small amounts of clear liquid diet. Objective - Vital Signs Vital signs: Vital Signs Temp 98.1 F 08/16/23 07:00 Pulse 67 08/16/23 07:00 Resp 16 08/16/23 07:00 BP 125/80 08/16/23 07:00 Pulse Ox 99 08/16/23 07:00 FiO2 Intake & Output 08/15/23 08/16/23 08/16/23 18:59 06:59 18:59 Other: Voiding Method Toilet # Voids 3 3 - Exam General appearance: The patient is alert, oriented, appears in no acute distress. HET: Head is normocephalic and atraumatic. Conjunctiva pink. Sclera anicteric. Neck: Supple without lymphadenopathy. Abdomen: Soft, mild epigastric tenderness, nondistended. Extremities: Normal skin color and turgor. No pedal edema Skin: No rashes, no jaundice Neurological: No focal deficits. Alert and oriented. - Labs CBC & Chem 7: 08/15/23 08:41 08/15/23 08:41 Labs: Abnormal Lab Results - Last 24 Hours (Table) 08/14/23 08/15/23 Range/Units 10:29 08:41 Sodium 134 L (137-145) mmol/L Carbon Dioxide 17 L (22-30) mmol/L Creatinine 0.44 L (0.52-1.04) mg/dL Glucose 60 L (74-99) mg/dL Calcium 8.0 L (8.4-10.2) mg/dL AST 54 H (14-36) U/L ALT 86 H (4-34) U/L Total Protein 5.9 L (6.3-8.2) g/dL IgG1 378.00 L (382.40-928.60) mg/dL IgG2 216.70 L (241.80-700.30) mg/dL IgG3 11.10 L (21.82-176.00) mg/dL Assessment and Plan (1) Nausea and vomiting Narrative/Plan: 28-year-old female with multiple admissions for nausea vomiting and abdominal pain. Has had previous upper endoscopies reporting moderate hiatal hernia valentin ritis and esophagitis. Biopsies all just show some mild inflammation. She is also been noted in the past to have elevated lipase consistent with pancreatitis with unclear etiology. She has had previous cholecystectomy for a calculus cholecystitis, previous Niesen fundoplication for hiatal hernia and nausea and vomiting. Patient noted to have positive urine drug screen with marijuana as far back as 2019. Patient has cyclic vomiting which could very likely be secondary to cannabinoid use, stress and anxiety. Patient does report using daily, hot showers does relieve symptoms. Likely patient has secondary gastritis to the nausea and vomiting causing epigastric discomfort. Recommend marijuana abstinence and discussed with patient symptoms may continue for some time due to fat stores. Patient verbalizes understanding. Will change Zofran to [id number], add scopolamine patch and increase Protonix to twice a day. No plans on endoscopic evaluation. Current Visit: No Status: Acute Code(s): R11.2 - NAUSEA WITH VOMITING, UNSPECIFIED SNOMED Code(s): 30224297 (2) Epigastric pain Narrative/Plan: Unclear etiology of abdominal pain. General surgery recommended upper GI with follow-through and patient is refusing Current Visit: Yes Status: Acute Code(s): R10.13 - EPIGASTRIC PAIN SNOMED Code(s): 17002424 (3) History of pancreatitis Narrative/Plan: Autoimmune markers ordered and negative. Triglycerides normal. Current Visit: Yes Status: Acute Code(s): Z87.19 - PERSONAL HISTORY OF OTHER DISEASES OF THE DIGESTIVE SYSTEM SNOMED Code(s): 09970949502312 Plan: 1. Continue symptomatic and supportive care 2. Antiemetics as needed 3. Continue Protonix 40 mg daily for GI prophylaxis 4. Recommend marijuana abstinence 5. Diet as tolerated 6. Continue with recommendations by general surgery 7. No plans on endoscopic evaluation 8. Patient is cleared from gastroenterology for discharge. She can follow-up as needed. Thank you for this consultation, we will sign off at this time. Dr. Joanna Osorio I agree with the dictator's note, documented as a scribe by Radha Nelson.
[2023-08-16] MEDS ORDERED: ONDANSETRON ODT 4 MG TAB PO PRN (13:39)
--- NOTE | 2023-08-16 15:42 | P.PN ---
Subjective Progress Note Date: 08/16/23 CHIEF COMPLAINT: Abdominal pain with nausea and vomiting HISTORY OF PRESENT ILLNESS: Patient reports that she is starting to feel a little better. No vomiting. Her nausea is slightly decreased. Still complains of epigastric abdominal pain. Tolerating the liquid diet. She has eaten the Jell-O and pudding. PHYSICAL EXAM: VITAL SIGNS: Reviewed. GENERAL: Well-developed in no acute distress. ABDOMEN: Soft. Nondistended. Epigastric tenderness NEUROLOGIC: Alert and oriented. Cranial nerves II through XII grossly intact. ASSESSMENT: 1. Abdominal pain with nausea and vomiting PLAN: -Continue to advance diet as tolerated -No surgical intervention planned -Patient refused upper GI with small bowel follow-through -Continue supportive care Physician Early Childhood note has been reviewed by physician. Signing provider agrees with the documented findings, assessment, and plan of care. Objective - Vital Signs Vital signs: Vital Signs Temp 98.1 F 08/16/23 07:00 Pulse 67 08/16/23 07:00 Resp 16 08/16/23 07:00 BP 125/80 08/16/23 07:00 Pulse Ox 99 08/16/23 07:00 FiO2 Intake & Output 08/15/23 08/16/23 08/16/23 18:59 06:59 18:59 Other: Voiding Method Toilet # Voids 3 3 - Labs CBC & Chem 7: 08/15/23 08:41 08/15/23 08:41 Labs: Abnormal Lab Results - Last 24 Hours (Table) 08/14/23 Range/Units 10:29 IgG1 378.00 L (382.40-928.60) mg/dL IgG2 216.70 L (241.80-700.30) mg/dL IgG3 11.10 L (21.82-176.00) mg/dL
[2023-08-16] MEDS ORDERED: PANTOPRAZOLE 40 MG TABLET PO SCH (17:30)
--- NOTE | 2023-08-17 04:10 | PN ---
PROGRESS NOTE SUBJECTIVE: 28-year-old white female who still has persistent nausea, nonevidencing as long she takes clear liquids, have been advanced to full liquid diet. We will probably add her diet and see if she can keep it down prior to going home. She has been cleared by GI and Surgery to go home. OBJECTIVE: VITAL SIGNS: Stable, afebrile. CARDIOVASCULAR: S1, S2. GI: Soft. PSYCH: She appears just resting in bed comfortably. NEUROLOGIC: Cranial nerves intact. ASSESSMENT: Intractable nausea, vomiting, status post Wilbert surgery, status post cholecystectomy. PROGNOSIS: Guarded. Continue with medications, Protonix 40 b.i.d., Zofran every 6 p.r.n. for nausea and follow up as an outpatient. Cleared by GI and Surgery for discharge. MMODL / IJN: [id number] /
== END 2023-08-16 15:26 | disposition home or self-care (01) ==
LOC: EC 23:37 → 6NMEDSUR 08-14 01:48
PROVIDERS: ADMIT Family Medicine; ATTEND Family Medicine
DX: R10.13 Epigastric pain (principal); R11.2 Nausea with vomiting, unspecified; K85.90 Acute pancreatitis without necrosis or infection, unspecified; K21.9 Gastro-esophageal reflux disease without esophagitis; F41.9 Anxiety disorder, unspecified; F12.90 Cannabis use, unspecified, uncomplicated; E87.6 Hypokalemia; Z90.49 Acquired absence of other specified parts of digestive tract; Z79.899 Other long term (current) drug therapy
CPT/HCPCS: 36415; 80053; 80306; 81025; 82150; 82787; 83690; 83735; 84132; 84478; 85025; 86038; 96361; 96365; 96366; 96375; 96376; 99285

== ENCOUNTER 2023-10-27 07:22 | Emergency (ER) | payer OTHER ==
[2023-10-27] MEDS: SCOPOLAMINE 1 MG/72 HR PATCH TRANSDERM STA (07:48)
[2023-10-27] MEDS: ONDANSETRON 4 MG/2 ML VIAL IVP STA (07:52)
[2023-10-27] MEDS: SODIUM CHLORIDE 0.9% 1,000 ML IV STA (07:52)
--- NOTE | 2023-10-27 07:52 | ED ---
Abdominal Pain HPI - General Chief Complaint: Abdominal Pain Stated Complaint: NVD Time Seen by Provider: 10/27/23 07:27 Source: patient, RN notes reviewed Mode of arrival: ambulatory Limitations: no limitations - History of Present Illness Initial Comments: This is a 28-year-old female who presents to the emergency department for nausea, vomiting, and abdominal pain. Patient states that symptoms started approximately 3 hours prior to arrival. Abdominal pain is generalized. States that Zofran is typically the most effective for her nausea. She does not like how Reglan, Haldol, and scopolamine patches make her feel. Denies any fevers or chills. Her fianc at bedside states that they had pizza last night that also made her feel queasy and wonders if it may be related to what she ate. However, states that she does get problems with recurrent pancreatitis as well as recurrent nausea and vomiting. - Related Data Home Medications Medication Instructions Recorded Confirmed Famotidine [Pepcid] 20 mg PO BID PRN 05/07/23 10/27/23 HYDROcodone/APAP 5-325MG [[place] 1 tab PO DAILY PRN 08/14/23 10/27/23 5-325] Previous Rx's Medication Instructions Recorded Ondansetron Odt [Zofran ODT] 4 mg PO Q8HR PRN 30 Days #60 tab 08/16/23 Ketorolac [Toradol] 10 mg PO Q6HR PRN #15 tab 10/27/23 Ondansetron Odt [Zofran Odt] 4 mg PO Q8HR PRN #20 tab 10/27/23 Allergies Allergy/AdvReac Type Severity Reaction Status Date / Time No Known Allergies Allergy Verified 10/27/23 10:21 Review of Systems ROS Statement: Those systems with pertinent positive or pertinent negative responses have been documented in the HPI. ROS Other: All systems not noted in ROS Statement are negative. Past Medical History Past Medical History: GERD/Reflux Additional Past Medical History / Comment(s): MIGRAINES, BACK PAIN. 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 No other history of STDs. Pancreatitis. History of Any Multi-Drug Resistant Organisms: None Reported Past Surgical History: Cholecystectomy, Hernia Repair Additional Past Surgical History / Comment(s): Hiatal hernia repair. Past Anesthesia/Blood Transfusion Reactions: Motion Sickness Additional Past Anesthesia/Blood Transfusion Reaction / Comment(s): NO ANESTHESIA HX Past Psychological History: Anxiety Smoking Status: Never smoker Past Alcohol Use History: Occasional Past Drug Use History: Marijuana - Past Family History Mother Family Medical History: No Reported History Additional Family Medical History / Comment(s): Maternal grandmother had colon cancer. A maternal great grandmother had breast cancer. Father Family Medical History: Hypertension General Exam Limitations: no limitations General appearance: alert, in no apparent distress Head exam: Present: atraumatic, normocephalic, normal inspection Respiratory exam: Present: normal lung sounds bilaterally. Absent: respiratory distress, wheezes, rales, rhonchi, stridor Cardiovascular Exam: Present: regular rate, normal rhythm, normal heart sounds. Absent: systolic murmur, diastolic murmur, rubs, gallop, clicks GI/Abdominal exam: Present: soft, tenderness (generalized), normal bowel sounds. Absent: distended Neurological exam: Present: alert, oriented X3, CN II-XII intact Psychiatric exam: Present: normal affect, normal mood Skin exam: Present: warm, dry, intact, normal color. Absent: rash Course Vital Signs 10/27/23 10/27/23 10/27/23 07:25 08:56 11:29 Temperature 97.5 F L 98.2 F Pulse Rate 84 64 63 Respiratory 18 16 18 Rate Blood Pressure 108/75 117/80 100/62 O2 Sat by Pulse 99 100 100 Oximetry Medical Decision Making - Medical Decision Making This is a 28 year old female who presents to the emergency department for abdominal pain, nausea, and vomiting. Was pt. sent in by a medical professional or institution? @ -No Did you speak to anyone other than the patient for history? @ -No Did you review nursing and triage notes? @ -Yes, and I agree, it is accurate with regards to the patient's symptoms. Were old charts reviewed? @ -No Differential Diagnosis? @ -Differential Abdominal Pain Women: Appendicitis, Cholecystitis, diverticulosis, ischemic bowel, pancreatitis, hepatitis, UTI, gastroenteritis, AAA, incarcerated hernia, bowel obstruction, constipation, inflammatory bowel, hepatitis, peptic ulcer disease, splenic infarction, perforated viscus, vulvitis, ovarian torsion, PID, kidney stone, placenta abruption, this is not meant to be an all-inclusive list EKG interpreted by me (3pts min.)? @ -Not obtained X-rays interpreted by me (1pt min.)? @ -Not obtained CT interpreted by me (1pt min.)? @ -Not obtained U/S interpreted by me (1pt. min.)? @ -Not obtained What testing was considered but not performed? (CT, X-rays, U/S, labs)? Why? @ -None What meds were considered but not given? Why? @ -None Did you discuss the management of the patient with other professionals? @ -No Did you reconcile home meds? @ -No Was smoking cessation discussed for >3mins.? @ -No Was critical care preformed (if so, how long)? @ -No Were there social determinants of health that impacted care today? How? (Homelessness, low income, unemployed, alcoholism, drug addiction, transpor tation, low edu. Level, literacy, decrease access to med. care, usp, rehab)? @ -No Was there de-escalation of care discussed even if they declined? (Discuss DNR or withdrawal of care, Hospice)? @ -No What co-morbidities impacted this encounter? (DM, HTN, Smoking, COPD, CAD, Cancer, CVA, Hep., AIDS, mental health diagnosis, sleep apnea, morbid obesity)? @ -None Was patient admitted / discharged? @ -Discharged. Lab work demonstrates a mildly elevated lipase of 476 and was otherwise unremarkable. Urinalysis negative for signs of infection. UDS positive for marijuana. Patient does report regular marijuana use. Symptoms well-controlled in the emergency department. Discussed with the patient that ester grace does have a mildly elevated lipase and early pancreatitis cannot be ruled out. Prescription for Zofran provided. Advised that if she develops increasing pain or worsening nausea/vomiting she should return for further evaluation. Otherwise advised she slowly advance her diet as tolerated and remain well- hydrated. Patient discharged home in stable condition. Case discussed with ED attending, Dr. Alarcon. Undiagnosed new problem with uncertain prognosis? @ -None Drug Therapy requiring intensive monitoring for toxicity (Heparin, Nitro, Insulin, Cardizem)? @ -None Were any procedures done? @ -None Diagnosis/symptom? @ -Nausea and vomiting Acute, or Chronic, or Acute on Chronic? @ -Acute Uncomplicated (without systemic symptoms) or Complicated (systemic symptoms)? @ -Uncomplicated Side effects of treatment? @ -None Exacerbation, Progression, or Severe Exacerbation] @ -Not applicable Poses a threat to life or bodily function? @ -No Return precautions reviewed in depth, the patient is instructed to return to the emergency department with any new, worsening, or concerning symptoms. Patient verbalized understanding. - Lab Data Result diagrams: 10/27/23 07:32 10/27/23 07:32 Lab Results 10/27/23 10/27/23 10/27/23 Range/Units 07:32 07:32 07:32 WBC 5.1 (3.8-10.6) k/uL RBC 4.51 (3.80-5.40) m/uL Hgb 13.5 (11.4-16.0) gm/dL Hct 40.6 (34.0-46.0) % MCV 90.2 (80.0-100.0) fL MCH 30.0 (25.0-35.0) pg MCHC 33.3 (31.0-37.0) g/dL RDW 12.4 (11.5-15.5) % Plt Count 170 (150-450) k/uL MPV 8.6 Neutrophils % 56 % Lymphocytes % 31 % Monocytes % 5 % Eosinophils % 5 % Basophils % 1 % Neutrophils # 2.9 (1.3-7.7) k/uL Lymphocytes # 1.6 (1.0-4.8) k/uL Monocytes # 0.2 (0-1.0) k/uL Eosinophils # 0.2 (0-0.7) k/uL Basophils # 0.0 (0-0.2) k/uL Sodium (137-145) mmol/L Potassium (3.5-5.1) mmol/L Chloride (98-107) mmol/L Carbon Dioxide (22-30) mmol/L Anion Gap mmol/L BUN (7-17) mg/dL Creatinine (0.52-1.04) mg/dL Est GFR (CKD-EPI)AfAm (>60 ml/min/1.73 sqM) Est GFR (CKD-EPI)NonAf (>60 ml/min/1.73 sqM) Glucose (74-99) mg/dL Plasma Lactic Acid Ilya (0.7-2.0) mmol/L Calcium (8.4-10.2) mg/dL Total Bilirubin (0.2-1.3) mg/dL AST (14-36) U/L ALT (4-34) U/L Alkaline Phosphatase (38-126) U/L Total Protein (6.3-8.2) g/dL Albumin (3.5-5.0) g/dL Amylase (30-110) U/L Lipase (23-300) U/L Urine Color Yellow Urine Appearance Clear (Clear) Urine pH 5.0 (5.0-8.0) Ur Specific [place] 1.030 (1.001-1.035) Urine Protein Negative (Negative) Urine Glucose (UA) Negative (Negative) Urine Ketones Negative (Negative) Urine Blood Small H (Negative) Urine Nitrite Negative (Negative) Urine Bilirubin Negative (Negative) Urine Urobilinogen <2.0 (<2.0) mg/dL Ur Leukocyte Esterase Negative (Negative) Urine RBC 1 (0-5) /hpf Urine WBC 3 (0-5) /hpf Ur Squamous Epith Cells 3 (0-4) /hpf Urine Mucus Few H (None) /hpf Urine HCG, Qual Not Detected (Not Detectd) Urine Opiates Screen Not Detected (NotDetected) Ur Oxycodone Screen Not Detected (NotDetected) Urine Methadone Screen Not Detected (NotDetected) Ur Barbiturates Screen Not Detected (NotDetected) U Tricyclic Antidepress Not Detected (NotDetected) Ur Phencyclidine Scrn Not Detected (NotDetected) Ur Amphetamines Screen Not Detected (NotDetected) U Methamphetamines Scrn Not Detected (NotDetected) U Benzodiazepines Scrn Not Detected (NotDetected) Urine Cocaine Screen Not Detected (NotDetected) U Marijuana (THC) Screen Detected H (NotDetected) 10/27/23 10/27/23 Range/Units 07:32 07:32 WBC (3.8-10.6) k/uL RBC (3.80-5.40) m/uL Hgb (11.4-16.0) gm/dL Hct (34.0-46.0) % MCV (80.0-100.0) fL MCH (25.0-35.0) pg MCHC (31.0-37.0) g/dL RDW (11.5-15.5) % Plt Count (150-450) k/uL MPV Neutrophils % % Lymphocytes % % Monocytes % % Eosinophils % % Basophils % % Neutrophils # (1.3-7.7) k/uL Lymphocytes # (1.0-4.8) k/uL Monocytes # (0-1.0) k/uL Eosinophils # (0-0.7) k/uL Basophils # (0-0.2) k/uL Sodium 140 (137-145) mmol/L Potassium 4.1 (3.5-5.1) mmol/L Chloride 115 H (98-107) mmol/L Carbon Dioxide 16 L (22-30) mmol/L Anion Gap 9 mmol/L BUN 13 (7-17) mg/dL Creatinine 0.54 (0.52-1.04) mg/dL Est GFR (CKD-EPI)AfAm >90 (>60 ml/min/1.73 sqM) Est GFR (CKD-EPI)NonAf >90 (>60 ml/min/1.73 sqM) Glucose 106 H (74-99) mg/dL Plasma Lactic Acid Ilya 1.2 (0.7-2.0) mmol/L Calcium 9.0 (8.4-10.2) mg/dL Total Bilirubin 0.4 (0.2-1.3) mg/dL AST 22 (14-36) U/L ALT 13 (4-34) U/L Alkaline Phosphatase 43 (38-126) U/L Total Protein 6.7 (6.3-8.2) g/dL Albumin 4.1 (3.5-5.0) g/dL Amylase 94 (30-110) U/L Lipase 476 H (23-300) U/L Urine Color Urine Appearance (Clear) Urine pH (5.0-8.0) Ur Specific [place] (1.001-1.035) Urine Protein (Negative) Urine Glucose (UA) (Negative) Urine Ketones (Negative) Urine Blood (Negative) Urine Nitrite (Negative) Urine Bilirubin (Negative) Urine Urobilinogen (<2.0) mg/dL Ur Leukocyte Esterase (Negative) Urine RBC (0-5) /hpf Urine WBC (0-5) /hpf Ur Squamous Epith Cells (0-4) /hpf Urine Mucus (None) /hpf Urine HCG, Qual (Not Detectd) Urine Opiates Screen (NotDetected) Ur Oxycodone Screen (NotDetected) Urine Methadone Screen (NotDetected) Ur Barbiturates Screen (NotDetected) U Tricyclic Antidepress (NotDetected) Ur Phencyclidine Scrn (NotDetected) Ur Amphetamines Screen (NotDetected) U Methamphetamines Scrn (NotDetected) U Benzodiazepines Scrn (NotDetected) Urine Cocaine Screen (NotDetected) U Marijuana (THC) Screen (NotDetected) Disposition Clinical Impression: Nausea & vomiting Disposition: HOME SELF-CARE Instructions (If sedation given, give patient instructions): Acute Nausea and Vomiting (ED) Additional Instructions: Return to the emergency department with any new, worsening, or concerning symptoms. Take the Toradol with Tylenol as needed for pain relief. If you choose to take the Toradol, do not take any other anti-inflammatories such as ibuprofen, take one or the other. You can take the Zofran up to every 8 hours as needed for nausea and vomiting. Slowly advance your diet as tolerated and remain well-hydrated. Follow up with your primary care provider in 1-2 days. Prescriptions: Ketorolac [Toradol] 10 mg PO Q6HR PRN #15 tab PRN Reason: Pain Ondansetron Odt [Zofran Odt] 4 mg PO Q8HR PRN #20 tab PRN Reason: Nausea And Vomiting Is patient prescribed a controlled substance at d/c from ED?: No Referrals: Terry Rivera MD [Primary Care Provider] - 1-2 days Time of Disposition: 11:15
[2023-10-27] MEDS: HYDROmorphone 1 MG/ML 1 ML SYRINGE IVP STA ×2 (07:54→08:59)
[2023-10-27] MEDS: FAMOTIDINE 20 MG/2 ML VIAL IV STA (07:55)
[2023-10-27 07:56] LABS: Basophils % (A) 1 %; Eosinophils # (A) 0.2 k/uL (0-0.7); Eosinophils % (A) 5 %; HCT 40.6 % (34.0-46.0); HGB 13.5 gm/dL (11.4-16.0); Lymphocytes # (A) 1.6 k/uL (1.0-4.8); Lymphocytes % (A) 31 %; MCHC 33.3 g/dL (31.0-37.0); MCV 90.2 fL (80.0-100.0); Mean Platelet Volume 8.6; Monocytes # (A) 0.2 k/uL (0-1.0); Monocytes % (A) 5 %; Neutrophils # (A) 2.9 k/uL (1.3-7.7); Neutrophils % (A) 56 %; Platelet Count 170 k/uL (150-450); RBC 4.51 m/uL (3.80-5.40); RDW 12.4 % (11.5-15.5); WBC 5.1 k/uL (3.8-10.6)
[2023-10-27] MEDS: KETOROLAC 15 MG/ML 1 ML VIAL IVP STA ×2 (07:56→10:24)
[2023-10-27] MEDS: PANTOPRAZOLE 40 MG/10 ML VIAL IVP STA (07:57)
[2023-10-27 08:06] LABS: Appearance,Urine Clear (Clear); Bilirubin,Urine Negative (Negative); Blood,Urine Small (Negative); Color,Urine Yellow; Glucose,Urine (UA) Negative (Negative); Ketones,Urine Negative (Negative); Leukocyte Esterase,Urine Negative (Negative); Mucus,Urine Few /hpf; Nitrite,Urine Negative (Negative); Protein,Urine Negative (Negative); RBC,Urine 1 /hpf (0-5); Squamous Epithelial Cell,Urine 3 /hpf (0-4); Urobilinogen,Urine <2.0 mg/dL (<2.0); WBC,Urine 3 /hpf (0-5)
[2023-10-27] MEDS: CLINDAMYCIN 150 MG CAP PO STA (08:25)
[2023-10-27 08:30] LABS: Chloride 115 mmol/L (98-107)
[2023-10-27 08:31] LABS: ALT 13 U/L (4-34); African American GFR (CKD) >90 (>60 ml/min/1.73 sqM); Albumin 4.1 g/dL (3.5-5.0); Amylase 94 U/L (30-110); Anion Gap 9 mmol/L; Blood Urea Nitrogen 13 mg/dL (7-17); Carbon Dioxide 16 mmol/L (22-30); Glucose 106 mg/dL (74-99); Lipase 476 U/L (23-300); Non-African American GFR(CKD) >90 (>60 ml/min/1.73 sqM); Sodium 140 mmol/L (137-145); Total Bilirubin 0.4 mg/dL (0.2-1.3); Total Protein 6.7 g/dL (6.3-8.2)
[2023-10-27 08:40] LABS: AST 22 U/L (14-36); Alkaline Phosphatase 43 U/L (38-126); Amphetamine Screen,Urine Not Detected (NotDetected); Barbiturate Screen,Urine Not Detected (NotDetected); Benzodiazepines Screen,Urine Not Detected (NotDetected); Cocaine Screen,Urine Not Detected (NotDetected); Methadone Screen, Urine Not Detected (NotDetected); Opiate Screen,Urine Not Detected (NotDetected); Oxycodone Screen, Urine Not Detected (NotDetected); Phencyclidine Screen,Urine Not Detected (NotDetected); Potassium 4.1 mmol/L (3.5-5.1); Tricyclic Antidepressant,Urine Not Detected (NotDetected); Urn Cannabinoid Scrn Detected (NotDetected)
[2023-10-27] MEDS: LIDOCAINE 4% PATCH TOPICAL ONE (10:25)
[2023-10-27] MEDS: ONDANSETRON 4 MG ODT STARTER PACK 2 TAB BTL PO STA (10:56)
[2023-10-27] MEDS: traMADol 50 MG STARTER PACK 3 TAB BTL PO STA (10:56)
[2023-10-27 11:31] VITALS: BP 100/62; PULSE 63; RESP 18; TEMP 98.2
[2023-10-27] MEDS: ONDANSETRON 4 MG/2 ML VIAL IM STA (11:38)
== END 2023-10-27 11:55 | disposition home or self-care (01) ==
LOC: EC 07:22
DX: R11.2 Nausea with vomiting, unspecified (principal); R10.84 Generalized abdominal pain
CPT/HCPCS: 36415; 80053; 82150; 83605; 83690; 85025; 81001; 81025; 80306; 99284; 96374; 96375 ×5; 96376 ×2; 96361 ×3; 96372; J2405; J3490; J1170; J1885; S0119; J2470

== ENCOUNTER 2023-11-28 07:20 | Observation (INO) | payer OTHER ==
--- NOTE | 2023-11-28 07:55 | ED ---
General Adult HPI - General Chief complaint: Nausea/Vomiting/Diarrhea Stated complaint: vomiting Time Seen by Provider: 11/28/23 07:40 Source: patient, RN notes reviewed, old records reviewed Mode of arrival: ambulatory Limitations: no limitations - History of Present Illness Initial comments: Patient is a 28-year-old female who frequents emergency department presenting for nausea and vomiting. Has a history of pancreatitis, marijuana use. Also is a history of cholecystectomy. States she began experiencing nausea and vomiting this morning approximately 3 AM. No known provocative or palliative factors. Has had numerous episodes of nonbilious nonbloody emesis. 1 episode of nonbloody diarrhea. Endorses abdominal discomfort and had the typical presentation of her epigastric region. No guarding. Denies any cough, fevers, chills. Denies any chest pain or shortness of breath. Presents for further evaluation at this time.Denies vaginal discharge, bleeding. Denies urinary complaints.Denies . - Related Data Home Medications Medication Instructions Recorded Confirmed Famotidine [Pepcid] 20 mg PO BID PRN 05/07/23 11/28/23 HYDROcodone/APAP 5-325MG [[place] 1 tab PO DAILY PRN 08/14/23 11/28/23 5-325] Previous Rx's Medication Instructions Recorded Ondansetron Odt [Zofran Odt] 4 mg PO Q8HR PRN #20 tab 10/27/23 Allergies Allergy/AdvReac Type Severity Reaction Status Date / Time No Known Allergies Allergy Verified 11/28/23 10:54 Review of Systems ROS Statement: Those systems with pertinent positive or pertinent negative responses have been documented in the HPI. Review of Systems: CONST: Denies fever EYES: Denies blurry vision ENT: Denies nasal congestion C/V: Denies Chest pain RESP: Denies shortness of breath GI: Endorses is abdominal pain : Denies dysuria SKIN: Denies rash. MSK: Denies joint pain. NEURO: Denies headache ROS Other: All systems not noted in ROS Statement are negative. Past Medical History Past Medical History: GERD/Reflux Additional Past Medical History / Comment(s): MIGRAINES, BACK PAIN. 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 No other history of STDs. Pancreatitis. History of Any Multi-Drug Resistant Organisms: None Reported Past Surgical History: Cholecystectomy, Hernia Repair Additional Past Surgical History / Comment(s): Hiatal hernia repair. Past Anesthesia/Blood Transfusion Reactions: Motion Sickness Additional Past Anesthesia/Blood Transfusion Reaction / Comment(s): NO ANES THESIA HX Past Psychological History: Anxiety Smoking Status: Never smoker Past Alcohol Use History: Occasional Past Drug Use History: Marijuana - Past Family History Mother Family Medical History: No Reported History Additional Family Medical History / Comment(s): Maternal grandmother had colon cancer. A maternal great grandmother had breast cancer. Father Family Medical History: Hypertension General Exam - General Exam Comments Initial Comments: General: Appears in mild distress. HEAD: Normal with no signs of head trauma. EYES: PERRLA, EOMI, conjunctiva normal, no discharge. ENT: Hearing grossly intact, normal oropharynx. RESPIRATORY: Clear breath sounds bilaterally. No wheezes, rales, or rhonchi. C/V: Regular rate and rhythm. S1 and S2 auscultated, no edema, peripheral pulses 2+ and intact throughout ABD: Abdomen is soft, nondistended. Tender to palpation in the epigastric region. No guarding or rebound tenderness. No peritoneal signs. EXT: Normal range of motion, no obvious deformity SKIN: No rashes or lesions observed on exposed skin. NEURO: Alert and oriented x 4. Limitations: no limitations Course Vital Signs 11/28/23 11/28/23 11/28/23 07:20 08:21 09:50 Temperature 97.6 F Pulse Rate 82 57 L 57 L Respiratory 18 18 20 Rate Blood Pressure 117/81 102/72 94/77 O2 Sat by Pulse 99 99 98 Oximetry 11/28/23 12:57 Temperature 98.0 F Pulse Rate 59 L Respiratory 18 Rate Blood Pressure 100/56 O2 Sat by Pulse 99 Oximetry Medical Decision Making - Medical Decision Making Was pt. sent in by a medical professional or institution (, PA, ANGULAR DEVELOPER, urgent care, hospital, or care home...) When possible be specific @ -No Did you speak to anyone other than the patient for history (EMS, parent, family, police, friend...)? What history was obtained from this source @ -No Did you review nursing and triage notes (agree or disagree)? Why? @ -I reviewed and agree with nursing and triage notes Were old charts reviewed (outside hosp., previous admission, EMS record, old EKG, old radiological studies, urgent care reports/EKG's, care home records)? Report findings @ -Old charts reviewed from August of this year which showed patient presenting for similar complaints. Workup at that time remarkable for mild acute pancreatitis. Differential Diagnosis (chest pain, altered mental status, abdominal pain women, abdominal pain men, vaginal bleeding, weakness, fever, dyspnea, syncope, headach e, dizziness, GI bleed, back pain, seizure, CVA, palpatations, mental health, musculoskeletal)? @ -Differential Abdominal Pain Women: Appendicitis, Cholecystitis, diverticulosis, ischemic bowel, pancreatitis, hepatitis, UTI, gastroenteritis, AAA, incarcerated hernia, bowel obstruction, constipation, inflammatory bowel, hepatitis, peptic ulcer disease, splenic infarction, perforated viscus, vulvitis, ovarian torsion, PID, kidney stone, placenta abruption, this is not meant to be an all-inclusive list EKG interpreted by me (3pts min.). @ -Not done X-rays interpreted by me (1pt min.). @ -None done CT interpreted by me (1pt min.). @ -None done U/S interpreted by me (1pt. min.). @ -None done What testing was considered but not performed or refused? (CT, X-rays, U/S, labs)? Why? @ -None What meds were considered but not given or refused? Why? @ -None Did you discuss the management of the patient with other professionals (professionals i.e. , PA, ANGULAR DEVELOPER, lab, RT, psych nurse, secondary social studies teacher, wood tank builder, teacher, transportation security officer, case technician)? Give summary @ -Spoke with Dr. Rivera who accepted the admission. Was smoking cessation discussed for >3mins.? @ -No Was critical care preformed (if so, how long)? @ -No Were there social determinants of health that impacted care today? How? (Homelessness, low income, unemployed, alcoholism, drug addiction, transportation, low edu. Level, literacy, decrease access to med. care, half-way, rehab)? @ -No Was there de-escalation of care discussed even if they declined (Discuss DNR or withdrawal of care, Hospice)? DNR status @ -No What co-morbidities impacted this encounter? (DM, HTN, Smoking, COPD, CAD, Cancer, CVA, ARF, Chemo, Hep., AIDS, mental health diagnosis, sleep apnea, morbid obesity)? @ -Pancreatitis, marijuana use Was patient admitted / discharged? Hospital course, mention meds given and route, prescriptions, significant lab abnormalities, going to OR and other pertinent info. @ -Patient presents emergency department complaining of acute on chronic complaints of nausea and vomiting with epigastric abdominal discomfort. We will obtain abdominal laboratory studies. Imaging will be deferred at this time until results of labs returned as patient frequents emergency department for similar complaints and this is typical of her presentation for her. She was in agreement this plan. Vital signs are within acceptable limits. Patient will be administered IV fluids, analgesia, Protonix, Zofran. She was in agreement this plan. Patient's laboratory studies returned remarkable for an elevated lipase of 2021 and amylase of 259. Remainder the labs unremarkable. On reevaluation, patient still having significant pain as well as nausea and vomiting. It is improved however still present. She will be admitted for acute pancreatitis for symptomatic control. I spoke with the admitting physician, Dr. Rivera who accepted the admission. Patient was in agreement this plan. Undiagnosed new problem with uncertain prognosis? @ -No Drug Therapy requiring intensive monitoring for toxicity (Heparin, Nitro, Insulin, Cardizem)? @ -No Were any procedures done? @ -No Diagnosis/symptom? @ -Pancreatitis, nausea and vomiting Acute, or Chronic, or Acute on Chronic? @ -Acute on chronic Uncomplicated (without systemic symptoms) or Complicated (systemic symptoms)? @ -Complicated Side effects of treatment? @ -None Exacerbation, Progression, or Severe Exacerbation] @ -No Poses a threat to life or bodily function? @ -Potentially, yes as it can result in dehydration. - Lab Data Result diagrams: 11/28/23 08:27 11/28/23 08: Lab Results 11/28/23 11/28/23 11/28/23 Range/Units 08:27 08: 08:27 WBC 4.6 (3.8-10.6) k/uL RBC 4.33 (3.80-5.40) m/uL Hgb 13.0 (11.4-16.0) gm/dL Hct 38.3 (34.0-46.0) % MCV 88.4 (80.0-100.0) fL MCH 30.1 (25.0-35.0) pg MCHC 34.0 (31.0-37.0) g/dL RDW 12.2 (11.5-15.5) % Plt Count 200 (150-450) k/uL MPV 8.2 Neutrophils % 59 % Lymphocytes % 31 % Monocytes % 5 % Eosinophils % 4 % Basophils % 1 % Neutrophils # 2.7 (1.3-7.7) k/uL Lymphocytes # 1.4 (1.0-4.8) k/uL Monocytes # 0.2 (0-1.0) k/uL Eosinophils # 0.2 (0-0.7) k/uL Basophils # 0.0 (0-0.2) k/uL PT 10.9 (10.0-12.5) sec INR 1.0 (<1.2) APTT 22.3 (22.0-30.0) sec Sodium (137-145) mmol/L Potassium (3.5-5.1) mmol/L Chloride (98-107) mmol/L Carbon Dioxide (22-30) mmol/L Anion Gap mmol/L BUN (7-17) mg/dL Creatinine (0.52-1.04) mg/dL Est GFR (CKD-EPI)AfAm (>60 ml/min/1.73 sqM) Est GFR (CKD-EPI)NonAf (>60 ml/min/1.73 sqM) Glucose (74-99) mg/dL Calcium (8.4-10.2) mg/dL Total Bilirubin (0.2-1.3) mg/dL AST (14-36) U/L ALT (4-34) U/L Alkaline Phosphatase (38-126) U/L Total Protein (6.3-8.2) g/dL Albumin (3.5-5.0) g/dL Amylase (30-110) U/L Lipase (23-300) U/L Urine Color Yellow Urine Appearance Cloudy H (Clear) Urine pH 5.5 (5.0-8.0) Ur Specific [place] 1.024 (1.001-1.035) Urine Protein Trace H (Negative) Urine Glucose (UA) Negative (Negative) Urine Ketones Negative (Negative) Urine Blood Small H (Negative) Urine Nitrite Negative (Negative) Urine Bilirubin Negative (Negative) Urine Urobilinogen <2.0 (<2.0) mg/dL Ur Leukocyte Esterase Negative (Negative) Urine RBC 2 (0-5) /hpf Urine WBC 5 (0-5) /hpf Ur Squamous Epith Cells 21 H (0-4) /hpf Urine Bacteria Rare H (None) /hpf Urine Mucus Many H (None) /hpf Urine HCG, Qual (Not Detectd) 11/28/23 11/28/23 Range/Units 08: 08:27 WBC (3.8-10.6) k/uL RBC (3.80-5.40) m/uL Hgb (11.4-16.0) gm/dL Hct (34.0-46.0) % MCV (80.0-100.0) fL MCH (25.0-35.0) pg MCHC (31.0-37.0) g/dL RDW (11.5-15.5) % Plt Count (150-450) k/uL MPV Neutrophils % % Lymphocytes % % Monocytes % % Eosinophils % % Basophils % % Neutrophils # (1.3-7.7) k/uL Lymphocytes # (1.0-4.8) k/uL Monocytes # (0-1.0) k/uL Eosinophils # (0-0.7) k/uL Basophils # (0-0.2) k/uL PT (10.0-12.5) sec INR (<1.2) APTT (22.0-30.0) sec Sodium 139 (137-145) mmol/L Potassium 3.8 (3.5-5.1) mmol/L Chloride 111 H (98-107) mmol/L Carbon Dioxide 25 (22-30) mmol/L Anion Gap 3 mmol/L BUN 10 (7-17) mg/dL Creatinine 0.59 (0.52-1.04) mg/dL Est GFR (CKD-EPI)AfAm >90 (>60 ml/min/1.73 sqM) Est GFR (CKD-EPI)NonAf >90 (>60 ml/min/1.73 sqM) Glucose 101 H (74-99) mg/dL Calcium 8.8 (8.4-10.2) mg/dL Total Bilirubin 0.4 (0.2-1.3) mg/dL AST 17 (14-36) U/L ALT 11 (4-34) U/L Alkaline Phosphatase 49 (38-126) U/L Total Protein 6.3 (6.3-8.2) g/dL Albumin 3.9 (3.5-5.0) g/dL Amylase 259 H (30-110) U/L Lipase 2022 H (23-300) U/L Urine Color Urine Appearance (Clear) Urine pH (5.0-8.0) Ur Specific [place] (1.001-1.035) Urine Protein (Negative) Urine Glucose (UA) (Negative) Urine Ketones (Negative) Urine Blood (Negative) Urine Nitrite (Negative) Urine Bilirubin (Negative) Urine Urobilinogen (<2.0) mg/dL Ur Leukocyte Esterase (Negative) Urine RBC (0-5) /hpf Urine WBC (0-5) /hpf Ur Squamous Epith Cells (0-4) /hpf Urine Bacteria (None) /hpf Urine Mucus (None) /hpf Urine HCG, Qual Not Detected (Not Detectd) Disposition Clinical Impression: Pancreatitis, Nausea and vomiting Disposition: ADMITTED IP TO THIS [facility] Condition: Stable Referrals: Terry Rivera MD [Primary Care Provider] - 1-2 days Time of Disposition: 10:45
[2023-11-28] MEDS: PANTOPRAZOLE 40 MG/10 ML VIAL IVP STA (08:30)
[2023-11-28] MEDS: ONDANSETRON 4 MG/2 ML VIAL IVP STA (08:34)
[2023-11-28] MEDS: SODIUM CHLORIDE 0.9% 1,000 ML IV STA ×2 (08:35→10:24)
[2023-11-28] MEDS: HYDROmorphone 0.5 MG/0.5 ML SYRINGE IVP STA (08:37)
[2023-11-28 08:47] LABS: Basophils % (A) 1 %; Eosinophils # (A) 0.2 k/uL (0-0.7); Eosinophils % (A) 4 %; HCT 38.3 % (34.0-46.0); Lymphocytes # (A) 1.4 k/uL (1.0-4.8); Lymphocytes % (A) 31 %; MCH 30.1 pg (25.0-35.0); MCV 88.4 fL (80.0-100.0); Mean Platelet Volume 8.2; Monocytes # (A) 0.2 k/uL (0-1.0); Monocytes % (A) 5 %; Neutrophils # (A) 2.7 k/uL (1.3-7.7); Neutrophils % (A) 59 %; Platelet Count 200 k/uL (150-450); RBC 4.33 m/uL (3.80-5.40); RDW 12.2 % (11.5-15.5); WBC 4.6 k/uL (3.8-10.6)
[2023-11-28 08:56] LABS: Appearance,Urine Cloudy (Clear); Bacteria,Urine Rare /hpf; Bilirubin,Urine Negative (Negative); Blood,Urine Small (Negative); Color,Urine Yellow; Glucose,Urine (UA) Negative (Negative); Ketones,Urine Negative (Negative); Leukocyte Esterase,Urine Negative (Negative); Mucus,Urine Many /hpf; Nitrite,Urine Negative (Negative); PH, Urine 5.5 (5.0-8.0); Protein,Urine Trace (Negative); RBC,Urine 2 /hpf (0-5); Specific Gravity,Urine 1.024 (1.001-1.035); Squamous Epithelial Cell,Urine 21 /hpf (0-4); Urobilinogen,Urine <2.0 mg/dL (<2.0); WBC,Urine 5 /hpf (0-5)
[2023-11-28 09:00] LABS: Partial Thromboplastin Time 22.3 sec (22.0-30.0); Prothrombin Time 10.9 sec (10.0-12.5)
[2023-11-28 09:04] LABS: ALT 11 U/L (4-34); AST 17 U/L (14-36); African American GFR (CKD) >90 (>60 ml/min/1.73 sqM); Albumin 3.9 g/dL (3.5-5.0); Alkaline Phosphatase 49 U/L (38-126); Amylase 259 U/L (30-110); Anion Gap 3 mmol/L; Blood Urea Nitrogen 10 mg/dL (7-17); Calcium 8.8 mg/dL (8.4-10.2); Carbon Dioxide 25 mmol/L (22-30); Chloride 111 mmol/L (98-107); Glucose 101 mg/dL (74-99); Non-African American GFR(CKD) >90 (>60 ml/min/1.73 sqM); Potassium 3.8 mmol/L (3.5-5.1); Sodium 139 mmol/L (137-145); Total Bilirubin 0.4 mg/dL (0.2-1.3); Total Protein 6.3 g/dL (6.3-8.2)
[2023-11-28 10:03] LABS: Lipase 2022 U/L (23-300)
[2023-11-28] MEDS: METOCLOPRAMIDE 5 MG/ML 2 ML VIAL IVP STA (10:20)
[2023-11-28] MEDS: diphenhydrAMINE 50 MG/ML 1 ML VIAL IVP STA (10:31)
[2023-11-28] MEDS ORDERED: ONDANSETRON 4 MG/2 ML VIAL IVP PRN (10:55)
[2023-11-28] MEDS ORDERED: NALOXONE 0.4 MG/ML 1 ML VIAL IV PRN (10:55)
[2023-11-28] MEDS ORDERED: HYDROmorphone 0.5 MG/0.5 ML SYRINGE IVP PRN (10:55)
[2023-11-28] MEDS: SODIUM CHLORIDE 0.9% 1,000 ML IV SCH (12:54)
[2023-11-28 12:58] VITALS: PULSE 59; RESP 18; TEMP 98
[2023-11-28 14:31] VITALS: BP 94/59
[2023-11-29] MEDS ORDERED: PANTOPRAZOLE 40 MG/10 ML VIAL IV SCH (09:00)
== END 2023-11-28 14:35 | disposition left against medical advice (07) ==
LOC: EC 07:20 → 6NMEDSUR 10:56
PROVIDERS: ADMIT Family Medicine; ATTEND Family Medicine
DX: K85.90 Acute pancreatitis without necrosis or infection, unspecified (principal); K21.9 Gastro-esophageal reflux disease without esophagitis; F41.9 Anxiety disorder, unspecified; Z90.49 Acquired absence of other specified parts of digestive tract; Z53.29 Procedure and treatment not carried out because of patient's decision for other reasons
CPT/HCPCS: 36415; 80053; 81001; 81025; 82150; 83690; 85025; 85610; 85730; 96361; 96374; 96375; 99285

== ENCOUNTER 2023-12-01 10:41 | Observation (INO) | payer OTHER ==
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
[2023-12-01 12:20] LABS: Basophils % (A) 0 %; Eosinophils # (A) 0.1 k/uL (0-0.7); Eosinophils % (A) 1 %; HCT 41.8 % (34.0-46.0); HGB 14.3 gm/dL (11.4-16.0); Lymphocytes # (A) 0.8 k/uL (1.0-4.8); Lymphocytes % (A) 6 %; MCH 29.6 pg (25.0-35.0); MCHC 34.3 g/dL (31.0-37.0); MCV 86.3 fL (80.0-100.0); Mean Platelet Volume 7.9; Monocytes # (A) 0.6 k/uL (0-1.0); Monocytes % (A) 4 %; Neutrophils # (A) 12.5 k/uL (1.3-7.7); Neutrophils % (A) 89 %; Platelet Count 334 k/uL (150-450); RBC 4.85 m/uL (3.80-5.40); RDW 12.3 % (11.5-15.5); WBC 14.1 k/uL (3.8-10.6)
[2023-12-01] MEDS: ONDANSETRON 4 MG/2 ML VIAL IVP STA (12:20)
[2023-12-01] MEDS: SODIUM CHLORIDE 0.9% 1,000 ML IV STA (12:21)
[2023-12-01] MEDS: HYDROmorphone 1 MG/ML 1 ML SYRINGE IVP STA ×2 (12:25→13:23)
[2023-12-01 12:30] LABS: ALT 15 U/L (4-34); AST 19 U/L (14-36); African American GFR (CKD) >90 (>60 ml/min/1.73 sqM); Albumin 5.4 g/dL (3.5-5.0); Alkaline Phosphatase 73 U/L (38-126); Amylase 61 U/L (30-110); Anion Gap 20 mmol/L; Blood Urea Nitrogen 18 mg/dL (7-17); Calcium 10.4 mg/dL (8.4-10.2); Carbon Dioxide 17 mmol/L (22-30); Chloride 107 mmol/L (98-107); Glucose 131 mg/dL (74-99); Lipase 34 U/L (23-300); Non-African American GFR(CKD) >90 (>60 ml/min/1.73 sqM); Potassium 3.3 mmol/L (3.5-5.1); Sodium 144 mmol/L (137-145); Total Protein 8.4 g/dL (6.3-8.2)
[2023-12-01] MEDS: METOCLOPRAMIDE 5 MG/ML 2 ML VIAL IVP STA (13:05)
[2023-12-01] MEDS ORDERED: NALOXONE 0.4 MG/ML 1 ML VIAL IV PRN (14:56)
[2023-12-01] MEDS: SODIUM CHLORIDE 0.9% 1,000 ML IV SCH (15:29)
[2023-12-01] MEDS: POTASSIUM CHLORIDE ER 20 MEQ TAB.ER PO STA (15:39)
[2023-12-01] MEDS: KETOROLAC 15 MG/ML 1 ML VIAL IVP PRN (15:44)
[2023-12-01] MEDS: POTASSIUM CHLORIDE 10 MEQ in WATER FOR INJECTION 1 100ML.BAG IVPB SCH (15:51)
[2023-12-01] MEDS: POTASSIUM CHLORIDE 20 MEQ in WATER FOR INJECTION 1 100ML.BAG IVPB STA (19:00)
[2023-12-01] MEDS: ONDANSETRON 4 MG/2 ML VIAL IVP PRN (20:34)
[2023-12-01] MEDS: HYDROmorphone 1 MG/ML 1 ML SYRINGE IVP PRN (20:34)
[2023-12-01] MEDS: FAMOTIDINE 20 MG TAB PO PRN (23:58)
[2023-12-02 08:05] LABS: ALT 49 U/L (4-34); AST 78 U/L (14-36); African American GFR (CKD) >90 (>60 ml/min/1.73 sqM); Albumin 3.7 g/dL (3.5-5.0); Albumin/Globulin Ratio 1.7; Alkaline Phosphatase 50 U/L (38-126); Anion Gap 8 mmol/L; Blood Urea Nitrogen 14 mg/dL (7-17); Calcium 8.4 mg/dL (8.4-10.2); Carbon Dioxide 20 mmol/L (22-30); Chloride 110 mmol/L (98-107); Globulin 2.2 g/dL; Glucose 77 mg/dL (74-99); Non-African American GFR(CKD) >90 (>60 ml/min/1.73 sqM); Potassium 3.3 mmol/L (3.5-5.1); Sodium 138 mmol/L (137-145); Total Bilirubin 0.8 mg/dL (0.2-1.3); Total Protein 5.9 g/dL (6.3-8.2)
[2023-12-02] MEDS ORDERED: Potassium Replacement Protocol 1 EACH MISC MISCELLANE PRN (08:44)
[2023-12-02] MEDS ORDERED: POTASSIUM CHLORIDE ER 20 MEQ TAB.ER PO SCH (09:00)
[2023-12-02] MEDS: POTASSIUM CHLORIDE 20 MEQ in WATER FOR INJECTION 1 100ML.BAG IVPB SCH (10:08)
[2023-12-02 13:16] LABS: Basophils # (A) 0.04 X 10*3/uL (0.00-0.10); Basophils % (A) 0.4 %; Eosinophils # (A) 0.04 X 10*3/uL (0.04-0.35); Eosinophils % (A) 0.4 %; HGB 11.7 g/dL (12.0-15.0); Lymphocytes # (A) 1.84 X 10*3/uL (0.90-5.00); Lymphocytes % (A) 18.3 %; MCH 29.5 pg (27.0-32.0); MCHC 32.5 g/dL (32.0-37.0); MCV 90.9 FL (80.0-97.0); Mean Platelet Volume 11.7 FL (9.5-12.2); Monocytes % (A) 6.9 %; NRBC Per 100 WBC 0 X 10*3/uL (0.00-0.01); Neutrophils # (A) 7.43 X 10*3/uL (1.80-7.70); Neutrophils % (A) 73.7 %; Platelet Count 172 X 10*3/uL (140-440); RBC 3.96 X 10*6/uL (4.10-5.20); WBC 10.08 X 10*3/uL (4.50-10.00)
--- NOTE | 2023-12-02 13:37 | CT ---
EXAMINATION TYPE: CT abdomen pelvis wo/w con DATE OF EXAM: 12/02/2023 COMPARISON: 02/10/2023 INDICATION: PANCREATITITS DLP: 1030.9 mGycm, Automated exposure control for dose reduction was used. CONTRAST: 100 mL of Isovue 300. Study performed without Oral Contrast TECHNIQUE: Axial images were obtained from above the diaphragm to the pubic rami in the axial plane a t 5 mm thick sections. Reconstructed images are reviewed on the computer in the coronal plane. FINDINGS: Limited CT sections are obtained the lung bases. The lung bases are clear. Moderate size hiatal her ian is present. CT ABDOMEN: Liver: Some mild diffuse fatty infiltration of liver is present. No discrete mass identified. Spleen: Normal Pancreas: Normal. No adjacent inflammatory changes evident. No suspicious density change within the p ancreas. No pseudocyst formation or abscess formation identified. No pancreatic duct dilatation evide nt. Adrenal glands: The adrenal glands are normal. Gallbladder: Absent Kidneys: No masses are evident. No hydronephrosis is present. No cysts are present. Aorta: Vascular calcification is within the aorta. Inferior vena cava: Normal. CT PELVIS: Loops of bowel within the abdomen and pelvis are normal. There are loops of bowel which are incom pletely distended or lack oral contrast limiting their evaluation. Appendix: Not identified. No dilated tubular structure or inflammatory change is evident. Urinary bladder: Normal. Genitourinary structures: Uterus is unremarkable. There is slightly retroflexed. Adnexa appear normal . Small follicles are present. Osseous structures: No suspicious lytic or sclerotic lesions. IMPRESSION: 1. No suspicious radiographic changes for acute appendicitis. 2. Hiatal hernia.
[2023-12-03 00:36] LABS: Appearance,Urine Clear (Clear); Bilirubin,Urine Negative (Negative); Blood,Urine Negative (Negative); Color,Urine Light Yellow; Glucose,Urine (UA) Negative (Negative); Ketones,Urine 4+ (Negative); Leukocyte Esterase,Urine Negative (Negative); Nitrite,Urine Negative (Negative); Protein,Urine Trace (Negative); Specific Gravity,Urine 1.031 (1.001-1.035); Urobilinogen,Urine <2.0 mg/dL (<2.0)
[2023-12-03] MEDS: POTASSIUM CHLORIDE ER 20 MEQ TAB.ER PO SCH (08:38)
--- NOTE | 2023-12-03 08:45 | P.GSCN ---
History of Present Illness Consult date: 12/03/23 Reason for Consult: Nausea History of present illness: This is a 28-year-old female who has a previous history of pancreatitis and nausea vomiting. Patient states that she felt nausea and some vague abdominal pain. She states her pain and nausea improved this morning. She is tolerating clear liquids. Past Medical History Past Medical History: GERD/Reflux Additional Past Medical History / Comment(s): MIGRAINES, BACK PAIN. 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 No other history of STDs. Pancreatitis. History of Any Multi-Drug Resistant Organisms: None Reported Past Surgical History: Cholecystectomy, Hernia Repair Additional Past Surgical History / Comment(s): Hiatal hernia repair. Past Anesthesia/Blood Transfusion Reactions: Motion Sickness Additional Past Anesthesia/Blood Transfusion Reaction / Comm: NO ANESTHESIA HX Past Psychological History: Anxiety Smoking Status: Never smoker Past Alcohol Use History: Occasional Additional Past Alcohol Use History / Comment(s): QUIT SMOKING AT 21 YRS OLD, STARTED SMOKING AGE 15, SMOKED 1/2 PPD OR LESS. Past Drug Use History: Marijuana Additional Drug Use History / Comment(s): DAILY MARIJANA USE. - Past Family History Mother Family Medical History: No Reported History Additional Family Medical History / Comment(s): Maternal grandmother had colon cancer. A maternal great grandmother had breast cancer. Father Family Medical History: Hypertension Medications and Allergies Home Medications Medication Instructions Recorded Confirmed Type Famotidine [Pepcid] 20 mg PO BID PRN 05/07/23 12/01/23 History HYDROcodone/APAP 5-325MG [[place] 1 tab PO DAILY PRN 08/14/23 12/01/23 History 5-325] Ondansetron [Zofran] 4 mg PO Q4H PRN 12/01/23 12/01/23 History Allergies Allergy/AdvReac Type Severity Reaction Status Date / Time No Known Allergies Allergy Verified 12/01/23 11:55 Surgical - Exam Vital Signs Temp Pulse Resp BP Pulse Ox 98.8 F 60 18 134/88 99 12/01/23 11:08 12/01/23 11:08 12/01/23 11:08 12/01/23 11:08 12/01/23 11:08 - General well developed, well nourished, no distress - Eyes PERRL - ENT normal pinna - Neck no masses - Respiratory normal expansion - Cardiovascular Rhythm: regular - Abdomen Abdomen: soft, non tender Results - Labs 12/02/23 07:04 12/02/23 15:30 Abnormal Lab Results - Last 24 Hours (Table) 12/02/23 12/02/23 Range/Units 07:04 23:15 WBC 10.08 H (4.50-10.00) X 10*3/uL RBC 3.96 L (4.10-5.20) X 10*6/uL Hgb 11.7 L (12.0-15.0) g/dL Hct 36.0 L (37.2-46.3) % Urine Protein Trace H (Negative) Urine Ketones 4+ H (Negative) Diabetes panel 12/02/23 Range/Units 15:30 Potassium 3.9 (3.5-5.1) mmol/L Pituitary panel 12/02/23 Range/Units 15:30 Potassium 3.9 (3.5-5.1) mmol/L Adrenal panel 12/02/23 Range/Units 15:30 Potassium 3.9 (3.5-5.1) mmol/L - Imaging CT scan - chest: report reviewed (Recurrent hiatal hernia) Assessment and Plan Plan: The patient's nausea may be related to recurrent hiatal hernia. The patient will be observed.
[2023-12-03] MEDS ORDERED: LACTULOSE 20 GM/30 ML CUP PO PRN (10:43)
[2023-12-03 12:13] LABS: Basophils # (A) 0.1 k/uL (0-0.2); Basophils % (A) 1 %; Eosinophils # (A) 0.1 k/uL (0-0.7); Eosinophils % (A) 1 %; HCT 40.3 % (34.0-46.0); HGB 13.4 gm/dL (11.4-16.0); Lymphocytes # (A) 1.4 k/uL (1.0-4.8); Lymphocytes % (A) 24 %; MCH 30.1 pg (25.0-35.0); MCHC 33.2 g/dL (31.0-37.0); MCV 90.8 fL (80.0-100.0); Mean Platelet Volume 9.1; Monocytes # (A) 0.4 k/uL (0-1.0); Monocytes % (A) 6 %; Neutrophils # (A) 4.1 k/uL (1.3-7.7); Neutrophils % (A) 67 %; Platelet Count 172 k/uL (150-450); RBC 4.44 m/uL (3.80-5.40); RDW 12.2 % (11.5-15.5)
[2023-12-03 14:59] VITALS: BP 88/47; PULSE 60; RESP 17; TEMP 97.9
--- NOTE | 2023-12-05 12:42 | HP ---
HISTORY AND PHYSICAL The patient is on Toradol, Dilaudid, Pepcid, Narcan, Zofran, potassium chloride IV. She was admitted with pancreatitis to the floor, experiencing progressive nausea and vomiting, chills. Denies fever. She had elevated white count and she has been vomiting. Does not drink alcohol. She has had a prior cholecystectomy. Denies chest pain, shortness of breath. MEDICATIONS: 1. [place] 5/325. 2. Zofran 4. 3. Pepcid 20 b.i.d. ALLERGIES: Negative. REVIEW OF SYSTEMS: Fourteen-point review of systems otherwise negative. PAST MEDICAL HISTORY: GERD, migraines, back pain, genital HSV, history of chronic pancreatitis, cholecystectomy, hernia repair, motion sickness. SOCIAL HISTORY: Does not smoke, does marijuana. FAMILY HISTORY: Grandmother, colon cancer. Father, hypertension. PHYSICAL EXAMINATION: VITAL SIGNS: Temperature 98, blood pressure 107 to 134 over 60 to 88, O2 sat of 98 to 99, respiratory rate 14 to 16, pulse 60 to 72. ABDOMEN: Slightly distended. Increased bowel sounds. Scattered diffuse tenderness. CARDIOVASCULAR: S1, S2. LUNGS: Clear. HEMATOLOGY: Negative Homans. PSYCH: Fair mood and affect. LABORATORY DATA: Leukocytosis, 14.1. Potassium 3.3, BUN is 18, creatinine is 0.73. ASSESSMENT: Retractable nausea and vomiting, hypokalemia, acute on chronic pancreatitis. Continue IV fluids, nausea medications. Surgical consult. Prognosis guarded. MMODL / IJN: [id number] /
--- NOTE | 2023-12-06 16:00 | PN ---
PROGRESS NOTE A 28-year-old white female. She is on potassium admitted for pancreatitis. She is on Pepcid, Toradol. Home monitor for signs of vomiting. Her oxygen is 98% on room air. Blood pressure 112/74, pulse 60, respiratory rate 18, temp 97.4. White count 14.1. Waiting for further repeat. Potassium remains low. We are going to replace electrolytes. Sugars 77. Liver enzymes are elevated. Possibly do a CAT scan of the abdomen and pelvis today. Prognosis guarded. Acute on chronic pancreatitis. Get surgical opinion. Please see further orders. Prognosis guarded. Antinausea medicines, antiemetics, bowel rest, clear liquids at the best at this point for diet. MMODL / IJN: [id number] /
== END 2023-12-03 15:10 | disposition home or self-care (01) ==
LOC: EC 10:41 → 6NMEDSUR 14:04 → 4SSUR 16:36
PROVIDERS: ADMIT Family Medicine; ATTEND Family Medicine
DX: K85.90 Acute pancreatitis without necrosis or infection, unspecified (principal); E87.6 Hypokalemia; K86.1 Other chronic pancreatitis; K44.9 Diaphragmatic hernia without obstruction or gangrene; Z79.899 Other long term (current) drug therapy; Z90.49 Acquired absence of other specified parts of digestive tract
CPT/HCPCS: 36415; 74178; 80053; 81003; 81025; 82150; 83605; 83690; 84132; 85025; 93005; 96361; 96365; 96366; 96375; 96376; 99285

== ENCOUNTER 2023-12-04 08:33 | Observation (INO) | payer OTHER ==
--- NOTE | 2023-12-04 08:53 | ED ---
Abdominal Pain HPI - General Chief Complaint: Abdominal Pain Stated Complaint: abd pain/nausea/vomitting Time Seen by Provider: 12/04/23 08:38 Source: patient, RN notes reviewed Mode of arrival: ambulatory Limitations: no limitations - History of Present Illness Initial Comments: 28-year-old female presented to the ER with a chief complaint of abdominal pain and nausea. Patient discharged yesterday from this facility for similar complaint. Patient states at that time she was feeling better without nausea. She was able to consume chicken noodle soup last night. She states this morning she had a return of generalized sharp abdominal pain with nausea and vomiting. She has tried Zofran, Pepcid without relief. She denies any constipation/diarrh ea or urinary complaints. Denies any fevers or chills. No other complaints at this time. - Related Data Home Medications Medication Instructions Recorded Confirmed Famotidine [Pepcid] 20 mg PO BID PRN 05/07/23 12/04/23 HYDROcodone/APAP 5-325MG [[place] 1 tab PO DAILY PRN 08/14/23 12/04/23 5-325] Ondansetron [Zofran] 4 mg PO Q4H PRN 12/01/23 12/04/23 Allergies Allergy/AdvReac Type Severity Reaction Status Date / Time No Known Allergies Allergy Verified 12/04/23 08:37 Review of Systems ROS Statement: Those systems with pertinent positive or pertinent negative responses have been documented in the HPI. ROS Other: All systems not noted in ROS Statement are negative. Past Medical History Past Medical History: GERD/Reflux Additional Past Medical History / Comment(s): MIGRAINES, BACK PAIN. 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 No other history of STDs. Pancreatitis. History of Any Multi-Drug Resistant Organisms: None Reported Past Surgical History: Cholecystectomy, Hernia Repair Additional Past Surgical History / Comment(s): Hiatal hernia repair. Past Anesthesia/Blood Transfusion Reactions: Motion Sickness Additional Past Anesthesia/Blood Transfusion Reaction / Comment(s): NO ANESTHESIA HX Past Psychological History: Anxiety Smoking Status: Never smoker Past Alcohol Use History: Occasional Past Drug Use History: Marijuana - Past Family History Mother Family Medical History: No Reported History Additional Family Medical History / Comment(s): Maternal grandmother had colon cancer. A maternal great grandmother had breast cancer. Father Family Medical History: Hypertension General Exam Limitations: no limitations General appearance: alert, in no apparent distress Respiratory exam: Present: normal lung sounds bilaterally. Absent: respiratory distress, wheezes, rales, rhonchi, stridor Cardiovascular Exam: Present: regular rate, normal rhythm, normal heart sounds. Absent: systolic murmur, diastolic murmur, rubs, gallop, clicks GI/Abdominal exam: Present: soft, tenderness (generalized), normal bowel sounds Neurological exam: Present: alert, oriented X3, CN II-XII intact Skin exam: Present: warm, dry, intact, normal color. Absent: rash Course Vital Signs 12/04/23 12/04/23 08:34 11:25 Temperature 98.0 F Pulse Rate 56 L 65 Respiratory 18 18 Rate Blood Pressure 139/66 113/85 O2 Sat by Pulse 98 98 Oximetry - Reevaluation(s) Reevaluation #1: 12/04/23 12:16 Patient reevaluated. No signs of acute distress. Patient reporting continued nausea. Zofran ordered. 12/04/23 14:[address] Rivera who accepts admission Medical Decision Making - Medical Decision Making Was pt. sent in by a medical professional or institution (, PA, PEG DRIVER, urgent care, hospital, or fdc...) When possible be specific @ -No Did you speak to anyone other than the patient for history (EMS, parent, family, police, friend...)? What history was obtained from this source @ -No Did you review nursing and triage notes (agree or disagree)? Why? @ -I reviewed and agree with nursing and triage notes Were old charts reviewed (outside hosp., previous admission, EMS record, old EKG, old radiological studies, urgent care reports/EKG's, fdc records)? Report findings @ -Yes, I have reviewed hospitalization from 12-03-2023 patient admitted for similar symptoms. Patient achieved symptom control and was discharged. Differential Diagnosis (chest pain, altered mental status, abdominal pain women, abdominal pain men, vaginal bleeding, weakness, fever, dyspnea, syncope, headache, dizziness, GI bleed, back pain, seizure, CVA, palpatations, mental health, musculoskeletal)? @ -Differential Abdominal Pain Women:Appendicitis, Cholecystitis, diverticulosis, ischemic bowel, pancreatitis, hepatitis, UTI, gastroenteritis, AAA, incarcerated hernia, bowel obstruction, constipation, inflammatory bowel, hepatitis, peptic ulcer disease, splenic infarction, perforated viscus, vulvitis, ovarian torsion, PID, kidney stone, placenta abruption, this is not meant to be an all-inclusive list EKG interpreted by me (3pts min.). @ -None X-rays interpreted by me (1pt min.). @ -None done CT interpreted by me (1pt min.). @ -None done U/S interpreted by me (1pt. min.). @ -None done What testing was considered but not performed or refused? (CT, X-rays, U/S, labs)? Why? @ -None What meds were considered but not given or refused? Why? @ -None Did you discuss the management of the patient with other professionals (professionals i.e. , PA, PEG DRIVER, lab, RT, psych nurse, social welfare administrator, [employer] thread winder, teacher, freedom of information officer, correctional case manager)? Give summary @ -Case discussed with Dr. Rivera for admission. Was smoking cessation discussed for >3mins.? @ -No Was critical care preformed (if so, how long)? @ -No Were there social determinants of health that impacted care today? How? (Homelessness, low income, unemployed, alcoholism, drug addiction, transportation, low edu. Level, literacy, decrease access to med. care, [place] [facility], rehab)? @ -No Was there de-escalation of care discussed even if they declined (Discuss DNR or withdrawal of care, Hospice)? DNR status @ -No What co-morbidities impacted this encounter? (DM, HTN, Smoking, COPD, CAD, Cancer, CVA, ARF, Chemo, Hep., AIDS, mental health diagnosis, sleep apnea, morbid obesity)? @ -None Was patient admitted / discharged? Hospital course, mention meds given and route, prescriptions, significant lab abnormalities, going to OR and other pertinent info. @ -28-year-old female presented to the ER with a chief complaint of nausea and vomiting. History and physical exam completed. Vitals within normal limits. Patient in no signs acute distress and nontoxic-appearing. Generalized abdominal tenderness. Patient is actively vomiting on exam. Laboratory studies obtained unimpressive. Patient received symptomatic treatment in the ER with IV fluids, Toradol, Zofran, Reglan, Pepcid and Dilaudid. Upon reevaluation, patient reporting continued pain and nausea. Admission considered at that time for intractable nausea/vomiting. Case discussed with Dr. Rivera for admission. Surgery on consult. Patient agreeable for admission. Patient admitted in stable condition for further evaluation and treatment. Case discussed with ED attending of Dr. Chao. Undiagnosed new problem with uncertain prognosis? @ -No Drug Therapy requiring intensive monitoring for toxicity (Heparin, Nitro, Insulin, Cardizem)? @ -No Were any procedures done? @ -No Diagnosis/symptom? @ -Cyclic vomiting/marijuana abuse/abdominal pain Acute, or Chronic, or Acute on Chronic? @ -Acute Uncomplicated (without systemic symptoms) or Complicated (systemic symptoms)? @ -Complicated Side effects of treatment? @ -No Exacerbation, Progression, or Severe Exacerbation? @ -No Poses a threat to life or bodily function? How? (Chest pain, [place], [place], pneumonia, PE, COPD, DKA, ARF, appy, cholecystitis, CVA, Diverticulitis, Homicidal, Suicid al, threat to staff... and all critical care pts) @ -No - Lab Data Result diagrams: 12/04/23 09:16 12/04/23 09:16 Lab Results 12/04/23 12/04/23 12/04/23 Range/Units 09:16 09:16 09:16 WBC 6.5 (3.8-10.6) k/uL RBC 4.35 (3.80-5.40) m/uL Hgb 13.1 (11.4-16.0) gm/dL Hct 37.2 (34.0-46.0) % MCV 85.4 D (80.0-100.0) fL MCH 30.0 (25.0-35.0) pg MCHC 35.2 (31.0-37.0) g/dL RDW 11.9 (11.5-15.5) % Plt Count 251 (150-450) k/uL MPV 8.1 Neutrophils % 72 % Lymphocytes % 19 % Monocytes % 5 % Eosinophils % 1 % Basophils % 1 % Neutrophils # 4.7 (1.3-7.7) k/uL Lymphocytes # 1.3 (1.0-4.8) k/uL Monocytes # 0.3 (0-1.0) k/uL Eosinophils # 0.1 (0-0.7) k/uL Basophils # 0.0 (0-0.2) k/uL Sodium 140 (137-145) mmol/L Potassium 3.6 (3.5-5.1) mmol/L Chloride 110 H (98-107) mmol/L Carbon Dioxide 20 L (22-30) mmol/L Anion Gap 10 mmol/L BUN 5 L (7-17) mg/dL Creatinine 0.56 (0.52-1.04) mg/dL Est GFR (CKD-EPI)AfAm >90 (>60 ml/min/1.73 sqM) Est GFR (CKD-EPI)NonAf >90 (>60 ml/min/1.73 sqM) Glucose 100 H (74-99) mg/dL Plasma Lactic Acid Ilya 1.0 (0.7-2.0) mmol/L Calcium 9.1 (8.4-10.2) mg/dL Total Bilirubin 0.7 (0.2-1.3) mg/dL AST 21 (14-36) U/L ALT 29 (4-34) U/L Alkaline Phosphatase 56 (38-126) U/L Total Protein 6.4 (6.3-8.2) g/dL Albumin 4.1 (3.5-5.0) g/dL Amylase 41 (30-110) U/L Lipase 71 (23-300) U/L Urine Color Urine Appearance (Clear) Urine pH (5.0-8.0) Ur Specific [place] (1.001-1.035) Urine Protein (Negative) Urine Glucose (UA) (Negative) Urine Ketones (Negative) Urine Blood (Negative) Urine Nitrite (Negative) Urine Bilirubin (Negative) Urine Urobilinogen (<2.0) mg/dL Ur Leukocyte Esterase (Negative) Urine HCG, Qual (Not Detectd) 12/04/23 12/04/23 Range/Units 10:44 10:44 WBC (3.8-10.6) k/uL RBC (3.80-5.40) m/uL Hgb (11.4-16.0) gm/dL Hct (34.0-46.0) % MCV (80.0-100.0) fL MCH (25.0-35.0) pg MCHC (31.0-37.0) g/dL RDW (11.5-15.5) % Plt Count (150-450) k/uL MPV Neutrophils % % Lymphocytes % % Monocytes % % Eosinophils % % Basophils % % Neutrophils # (1.3-7.7) k/uL Lymphocytes # (1.0-4.8) k/uL Monocytes # (0-1.0) k/uL Eosinophils # (0-0.7) k/uL Basophils # (0-0.2) k/uL Sodium (137-145) mmol/L Potassium (3.5-5.1) mmol/L Chloride (98-107) mmol/L Carbon Dioxide (22-30) mmol/L Anion Gap mmol/L BUN (7-17) mg/dL Creatinine (0.52-1.04) mg/dL Est GFR (CKD-EPI)AfAm (>60 ml/min/1.73 sqM) Est GFR (CKD-EPI)NonAf (>60 ml/min/1.73 sqM) Glucose (74-99) mg/dL Plasma Lactic Acid Ilya (0.7-2.0) mmol/L Calcium (8.4-10.2) mg/dL Total Bilirubin (0.2-1.3) mg/dL AST (14-36) U/L ALT (4-34) U/L Alkaline Phosphatase (38-126) U/L Total Protein (6.3-8.2) g/dL Albumin (3.5-5.0) g/dL Amylase (30-110) U/L Lipase (23-300) U/L Urine Color Light Yellow Urine Appearance Clear (Clear) Urine pH 5.5 (5.0-8.0) Ur Specific [place] 1.016 (1.001-1.035) Urine Protein Negative (Negative) Urine Glucose (UA) Negative (Negative) Urine Ketones 3+ H (Negative) Urine Blood Negative (Negative) Urine Nitrite Negative (Negative) Urine Bilirubin Negative (Negative) Urine Urobilinogen <2.0 (<2.0) mg/dL Ur Leukocyte Esterase Negative (Negative) Urine HCG, Qual Not Detected (Not Detectd) Disposition Clinical Impression: Cyclical vomiting, Marijuana abuse, Intractable nausea and vomiting Disposition: ADMITTED IP TO THIS [facility] Condition: Stable Referrals: Terry Rivera MD [Primary Care Provider] - 1-2 days Time of Disposition: 14:21
[2023-12-04] MEDS: SODIUM CHLORIDE 0.9% 1,000 ML IV STA (09:19)
[2023-12-04] MEDS: METOCLOPRAMIDE 5 MG/ML 2 ML VIAL IVP STA (09:19)
[2023-12-04] MEDS: KETOROLAC 15 MG/ML 1 ML VIAL IVP STA (09:21)
[2023-12-04] MEDS: PANTOPRAZOLE 40 MG/10 ML VIAL IVP STA (09:22)
[2023-12-04 09:37] LABS: Basophils % (A) 1 %; Eosinophils # (A) 0.1 k/uL (0-0.7); Eosinophils % (A) 1 %; HCT 37.2 % (34.0-46.0); HGB 13.1 gm/dL (11.4-16.0); Lymphocytes # (A) 1.3 k/uL (1.0-4.8); Lymphocytes % (A) 19 %; MCHC 35.2 g/dL (31.0-37.0); Mean Platelet Volume 8.1; Monocytes # (A) 0.3 k/uL (0-1.0); Monocytes % (A) 5 %; Neutrophils # (A) 4.7 k/uL (1.3-7.7); Neutrophils % (A) 72 %; Platelet Count 251 k/uL (150-450); RBC 4.35 m/uL (3.80-5.40); RDW 11.9 % (11.5-15.5); WBC 6.5 k/uL (3.8-10.6)
[2023-12-04 09:40] LABS: MCV 85.4 fL (80.0-100.0)
[2023-12-04 09:45] LABS: ALT 29 U/L (4-34); AST 21 U/L (14-36); African American GFR (CKD) >90 (>60 ml/min/1.73 sqM); Albumin 4.1 g/dL (3.5-5.0); Alkaline Phosphatase 56 U/L (38-126); Amylase 41 U/L (30-110); Anion Gap 10 mmol/L; Blood Urea Nitrogen 5 mg/dL (7-17); Calcium 9.1 mg/dL (8.4-10.2); Carbon Dioxide 20 mmol/L (22-30); Chloride 110 mmol/L (98-107); Glucose 100 mg/dL (74-99); Lipase 71 U/L (23-300); Non-African American GFR(CKD) >90 (>60 ml/min/1.73 sqM); Potassium 3.6 mmol/L (3.5-5.1); Sodium 140 mmol/L (137-145); Total Bilirubin 0.7 mg/dL (0.2-1.3); Total Protein 6.4 g/dL (6.3-8.2)
[2023-12-04 11:15] LABS: Appearance,Urine Clear (Clear); Bilirubin,Urine Negative (Negative); Blood,Urine Negative (Negative); Color,Urine Light Yellow; Glucose,Urine (UA) Negative (Negative); Ketones,Urine 3+ (Negative); Leukocyte Esterase,Urine Negative (Negative); Nitrite,Urine Negative (Negative); PH, Urine 5.5 (5.0-8.0); Protein,Urine Negative (Negative); Specific Gravity,Urine 1.016 (1.001-1.035); Urobilinogen,Urine <2.0 mg/dL (<2.0)
[2023-12-04] MEDS: HYDROmorphone 1 MG/ML 1 ML SYRINGE IVP STA (11:28)
[2023-12-04] MEDS: SODIUM CHLORIDE 0.9% 500 ML 500 ML IV STA (12:44)
[2023-12-04] MEDS: ONDANSETRON 4 MG/2 ML VIAL IVP STA (12:44)
[2023-12-04] MEDS ORDERED: KETOROLAC 15 MG/ML 1 ML VIAL IVP PRN (13:58)
[2023-12-04] MEDS ORDERED: NALOXONE 0.4 MG/ML 1 ML VIAL IV PRN (13:58)
[2023-12-04] MEDS: SODIUM CHLORIDE 0.9% 1,000 ML IV SCH (15:33)
[2023-12-04] MEDS: HYDROmorphone 0.5 MG/0.5 ML SYRINGE IVP PRN (15:45)
[2023-12-04] MEDS: METOCLOPRAMIDE 5 MG/ML 2 ML VIAL IVP SCH (18:45)
[2023-12-04] MEDS: PANTOPRAZOLE 40 MG TABLET PO SCH (18:45)
[2023-12-04] MEDS: ONDANSETRON 4 MG/2 ML VIAL IVP PRN (22:45)
--- NOTE | 2023-12-05 09:39 | FL ---
EXAMINATION TYPE: FL UGI w KUB DATE OF EXAM: 12/05/2023 8:48 AM CLINICAL INDICATION:Female, 28 years old with history of Hiatal hernia, planning for hiatal hernia re pair.; MJL, NAUSEA, VOMITING, ABDOMINAL PAIN, HX PANCREATITIS, HIATAL HERNIA SURGERY IN 2019, 55 SEC FLUORO, NO DAP, PT UNABLE TO TOLERATE SMALL BOWEL PORTION OF TEST DUE TO VOMITING CONTRAST COMPARISON: 01/14/2023 TECHNIQUE: The procedure was explained and patient history elicited. All patient questions were ans wered prior to start of procedure. A air and hydronic balancing technician radiograph of the abdomen was also reviewed. Multiple flu oroscopic spot images of the esophagus, stomach and duodenum were obtained following ingestion of liq uid barium and EZ-gas crystals. Fluoroscopic time: min Fluoroscopic images: 9 Radiographs taken: DAP: Not reported [id number] FINDINGS: Free flow of contrast through the distal esophagus into the stomach. Filling of a structure posterior to the distal esophagus is present possibly within the thorax suggesting hiatal hernia. Patient was unable to continue the exam at that time. No extravasation of contrast or evidence for obstruction. IMPRESSION: Post surgical changes esophagus with free flow of contrast into the stomach. Portion of gastric lumen appears to extend up above the diaphragm posterior to the distal esophagus. Patient terminating the exam early.
[2023-12-05] MEDS ORDERED: IOPAMIDOL CONTRAST (ORAL USE) VIAL PO PRN (11:42)
--- NOTE | 2023-12-05 12:43 | HP ---
HISTORY AND PHYSICAL HISTORY: A 28-year-old white female was admitted with abdominal pain, nausea, vomiting, unclear etiology. She has history of chronic pancreatitis. She is feeling better with no nausea. She had chicken noodle soup last night with return of generalized sharp pain with nausea and vomiting. She had tried Zofran in the past without relief. Denies any constipation, diarrhea, or urinary complaints. HOME MEDICATIONS: 1. Pepcid. 2. [place]. 3. Zofran. ALLERGIES: Negative. PAST MEDICAL HISTORY: GERD, migraines, pancreatitis surgery, cholecystectomy, hernia repair. SOCIAL HISTORY: Anxiety. FAMILY HISTORY: Mother, colon cancer. Grandmother had breast cancer. Father had hypertension. PHYSICAL EXAMINATION: VITAL SIGNS: Stable, afebrile. Blood pressure 139/66, temperature 98, pulse 56, respiratory rate 16-18, O2 98%. CARDIOVASCULAR: S1, S2. LUNGS: Clear. GI: Soft, normal bowel sounds. HEMATOLOGY: Negative Homans. PSYCH: Fair mood and affect. PLAN: Get surgical consult. Prognosis guarded. Pain control, nausea, vomiting. Reglan and Pepcid. Wait for surgical evaluation. Check for UTI. MMODL / IJN: [id number] /
--- NOTE | 2023-12-05 17:37 | P.CON ---
Consult Note - . Consult date: 12/05/23 Assessment/Plan:: 28-year-old female presented to the ER with a chief complaint of abdominal pain and nausea. She states this she had generalized sharp abdominal pain with nausea and vomiting. She has tried Zofran and Pepcid without relief. She denies any constipation/diarrhea or urinary complaints. Denies any fevers or chills. No other complaints at this time. She states she has a history of HHR and cholecystectomy. She states she has had recurrent episodes of pancreatitis. She denies ETOH abuse. Her labs are unremarkable. Review of Systems ROS Statement: Those systems with pertinent positive or pertinent negative responses have been documented in the HPI. ROS Other: All systems not noted in ROS Statement are negative. Past Medical History Past Medical History: GERD/Reflux Additional Past Medical History / Comment(s): MIGRAINES, BACK PAIN. 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 No other history of STDs. Pancreatitis. History of Any Multi-Drug Resistant Organisms: None Reported Past Surgical History: Cholecystectomy, Hernia Repair Additional Past Surgical History / Comment(s): Hiatal hernia repair. Past Anesthesia/Blood Transfusion Reactions: Motion Sickness Additional Past Anesthesia/Blood Transfusion Reaction / Comment(s): NO ANESTHESIA HX Past Psychological History: Anxiety Smoking Status: Never smoker Past Alcohol Use History: Occasional Past Drug Use History: Marijuana - Past Family History Mother Family Medical History: No Reported History Additional Family Medical History / Comment(s): Maternal grandmother had colon cancer. A maternal great grandmother had breast cancer. Father Family Medical History: Hypertension General Exam Limitations: no limitations General appearance: alert, in no apparent distress Respiratory exam: Present: normal lung sounds bilaterally. Absent: respiratory distress, wheezes, rales, rhonchi, stridor Cardiovascular Exam: Present: regular rate, normal rhythm, normal heart sounds. Absent: systolic murmur, diastolic murmur, rubs, gallop, clicks GI/Abdominal exam: Present: soft, tenderness (generalized), normal bowel sounds Neurological exam: Present: alert, oriented X3, CN II-XII intact Skin exam: Present: warm, dry, intact, normal color. Absent: rash 28 year old female with intractable nausea, vomiting, and abdominal pain -Full Liquid Diet -UGI shows recurrence of Hiatal Hernia -CT-AP with oral and IV contrast ordered -EGD planned for 12/07/23 -Nausea and Pain Control Luis A Ness DO [facility] [phone]
--- NOTE | 2023-12-05 20:33 | PN ---
PROGRESS NOTE evaluation with KUB, which showed gastric lumen appears distended up to the diaphragm, distal esophagus. The patient terminated the exam early, waiting for surgical evaluation. OBJECTIVE: VITAL SIGNS: Reviewed. CARDIOVASCULAR: S1, S2. LUNGS: Clear. GI: Soft. HEMATOLOGY: Negative Homans. PSYCH: Fair mood and affect. ASSESSMENT: Dehydration. Wait for surgical consult. Wait for CT scan, abdominal x-rays. Prognosis guarded. Wait for surgical evaluation. Constance Nath IV p.r.n. Prognosis guarded. Clear liquids. MMODL / IJN: [id number] /
[2023-12-06 03:57] LABS: Basophils % (A) 0 %; Eosinophils # (A) 0.2 k/uL (0-0.7); Eosinophils % (A) 4 %; HCT 33.2 % (34.0-46.0); HGB 11.1 gm/dL (11.4-16.0); Lymphocytes # (A) 2.4 k/uL (1.0-4.8); Lymphocytes % (A) 45 %; MCH 29.4 pg (25.0-35.0); MCHC 33.5 g/dL (31.0-37.0); MCV 87.6 fL (80.0-100.0); Mean Platelet Volume 8.2; Monocytes # (A) 0.3 k/uL (0-1.0); Monocytes % (A) 5 %; Neutrophils # (A) 2.4 k/uL (1.3-7.7); Neutrophils % (A) 44 %; Platelet Count 200 k/uL (150-450); RBC 3.79 m/uL (3.80-5.40); RDW 12.4 % (11.5-15.5); WBC 5.3 k/uL (3.8-10.6)
[2023-12-06 04:08] LABS: ALT 17 U/L (4-34); AST 16 U/L (14-36); African American GFR (CKD) >90 (>60 ml/min/1.73 sqM); Albumin 3.2 g/dL (3.5-5.0); Alkaline Phosphatase 39 U/L (38-126); Anion Gap 3 mmol/L; Bilirubin, Delta 0.1 mg/dL (0.0-0.2); Bilirubin,Unconjugated 0.2 mg/dL (0.0-1.1); Blood Urea Nitrogen 2 mg/dL (7-17); Calcium 8.3 mg/dL (8.4-10.2); Carbon Dioxide 25 mmol/L (22-30); Chloride 108 mmol/L (98-107); Glucose 102 mg/dL (74-99); Non-African American GFR(CKD) >90 (>60 ml/min/1.73 sqM); Potassium 3.3 mmol/L (3.5-5.1); Sodium 136 mmol/L (137-145); Total Bilirubin 0.3 mg/dL (0.2-1.3); Total Protein 5.2 g/dL (6.3-8.2)
[2023-12-06] MEDS: LACTATED RINGERS 1,000 ML IV SCH (10:19)
--- NOTE | 2023-12-06 10:21 | XR ---
EXAMINATION TYPE: XR abdomen 1V DATE OF EXAM: 12/06/2023 COMPARISON: NONE HISTORY: Contrast TECHNIQUE: One view abdominal series FINDINGS: The osseous structures are intact. The extensive retained contrast throughout the colon. Surgical cl ips in the gallbladder fossa. Lung bases clear. Overall bowel gas pattern nonspecific.. IMPRESSION: 1. Extensive retained contrast throughout the colon..
--- NOTE | 2023-12-06 15:18 | P.PN ---
Subjective Progress Note Date: 12/06/23 CHIEF COMPLAINT: abdominal pain and nausea HISTORY OF PRESENT ILLNESS: patient continues to have nausea. She reports no further vomiting. She was able to tolerate diet today. No complaint of abdominal pain at this time. computed tomography scan abdomen and pelvis has not been completed yet. afebrile. WBC 5.3 hgb 11.1 k 3.3. Abdominal x-ray extensive retained contrast throughout the colon PHYSICAL EXAM: VITAL SIGNS: Reviewed. GENERAL: Well-developed in no acute distress. ABDOMEN: Soft. Nondistended. Nontender. NEUROLOGIC: Alert and oriented. Cranial nerves II through XII grossly intact. ASSESSMENT: 1. Abdominal pain and nausea 2. Hiatal hernia 3. Hypokalemia PLAN: -patient scheduled for EGD with Dr. Ness tomorrow -nothing by mouth after midnight -Replacing potassium. Repeat bmp in AM Physician Chemist [employer] note has been reviewed by physician. Signing provider agrees with the documented findings, assessment, and plan of care. Objective - Vital Signs Vital signs: Vital Signs Temp 98.7 F 12/06/23 07:55 Pulse 67 12/06/23 07:55 Resp 16 12/06/23 07:55 BP 109/72 12/06/23 07:55 Pulse Ox 98 12/06/23 07:55 FiO2 Intake & Output 12/05/23 12/06/23 12/06/23 18:59 06:59 18:59 Intake Total 0 Balance 0 Intake: Oral 0 Other: Voiding Method Toilet # Voids 2 2 # Bowel Movements 1 3 - Labs CBC & Chem 7: 12/06/23 03:38 12/06/23 03:38 Labs: Abnormal Lab Results - Last 24 Hours (Table) 12/06/23 12/06/23 Range/Units 03:38 03:38 RBC 3.79 L (3.80-5.40) m/uL Hgb 11.1 L (11.4-16.0) gm/dL Hct 33.2 L (34.0-46.0) % Sodium 136 L (137-145) mmol/L Potassium 3.3 L (3.5-5.1) mmol/L Chloride 108 H (98-107) mmol/L BUN 2 L (7-17) mg/dL Creatinine 0.51 L (0.52-1.04) mg/dL Glucose 102 H (74-99) mg/dL Calcium 8.3 L (8.4-10.2) mg/dL Total Protein 5.2 L (6.3-8.2) g/dL Albumin 3.2 L (3.5-5.0) g/dL
--- NOTE | 2023-12-06 16:00 | PN ---
PROGRESS NOTE Came with nausea and vomiting. Abdominal pelvis CAT scan shows no pseudocyst, no pancreatic duct dilation. No density changes in the pancreas. normal. Urinary bladder normal. No appendicitis or hiatal hernia. Surgical consultation was done. OBJECTIVE: CARDIOVASCULAR: S1, S2. LUNGS: Transmitted upper sounds. GI: Soft. HEMATOLOGY: Negative Homans. Possible recurrent hiatal hernia observer. Possible discharge home next 24 to 48 hours, does better with CAT scan. Normal amylase. Lipase normal. MMODL / IJN: [id number] /
[2023-12-06] MEDS: POTASSIUM BICARBONATE/CIT AC 20 MEQ TABLET.EFF PO ONE (17:40)
[2023-12-06] MEDS: POTASSIUM CHLORIDE ER 20 MEQ TAB.ER PO STA (18:18)
--- NOTE | 2023-12-07 00:06 | PN ---
PROGRESS NOTE SUBJECTIVE: Seen by Surgery, supposed to get an EGD done tomorrow. The patient wants to go home soon after this. Scheduled for EGD tomorrow. N.p.o. after midnight. Replace potassium. Possible discharge home if doing well post EGD as surgical improvement. OBJECTIVE: VITAL SIGNS: Reviewed. CARDIOVASCULAR: S1, S2. LUNGS: Clear. GI: Soft. HEMATOLOGY: Negative Homans. Prognosis guarded. Continue current treatment. Please see further orders. Possible discharge home tomorrow if cleared by Surgery. MMODL / IJN: [id number] /
[2023-12-07 02:42] LABS: Basophils % (A) 0 %; Eosinophils # (A) 0.2 k/uL (0-0.7); Eosinophils % (A) 4 %; HCT 35.9 % (34.0-46.0); HGB 12.2 gm/dL (11.4-16.0); Lymphocytes # (A) 1.7 k/uL (1.0-4.8); Lymphocytes % (A) 31 %; MCHC 33.9 g/dL (31.0-37.0); MCV 88.4 fL (80.0-100.0); Monocytes # (A) 0.3 k/uL (0-1.0); Monocytes % (A) 5 %; Neutrophils # (A) 3.2 k/uL (1.3-7.7); Neutrophils % (A) 58 %; Platelet Count 206 k/uL (150-450); RBC 4.06 m/uL (3.80-5.40); RDW 13.1 % (11.5-15.5); WBC 5.6 k/uL (3.8-10.6)
[2023-12-07 02:49] LABS: ALT 16 U/L (4-34); AST 16 U/L (14-36); African American GFR (CKD) >90 (>60 ml/min/1.73 sqM); Albumin 3.4 g/dL (3.5-5.0); Alkaline Phosphatase 50 U/L (38-126); Anion Gap 5 mmol/L; Blood Urea Nitrogen 5 mg/dL (7-17); Calcium 8.8 mg/dL (8.4-10.2); Carbon Dioxide 26 mmol/L (22-30); Chloride 107 mmol/L (98-107); Glucose 101 mg/dL (74-99); Non-African American GFR(CKD) >90 (>60 ml/min/1.73 sqM); Potassium 3.6 mmol/L (3.5-5.1); Sodium 138 mmol/L (137-145); Total Bilirubin 0.3 mg/dL (0.2-1.3); Total Protein 5.5 g/dL (6.3-8.2)
--- NOTE | 2023-12-07 12:07 | P.PN ---
Progress Note - Text Progress Note Date: 12/07/23 CHIEF COMPLAINT: abdominal pain and nausea HISTORY OF PRESENT ILLNESS:NAEO. Denies abdominal pain, N/V PHYSICAL EXAM: VITAL SIGNS: Reviewed. GENERAL: Well-developed in no acute distress. ABDOMEN: Soft. Nondistended. Nontender. NEUROLOGIC: Alert and oriented. Cranial nerves II through XII grossly intact. ASSESSMENT: 1. Abdominal pain and nausea 2. Hiatal hernia 3. Hypokalemia PLAN: -patient scheduled for EGD today -NPO -AM labs Luis A Ness [facility] [phone]
[2023-12-07 14:48] VITALS: RESP 16
[2023-12-07] MEDS ORDERED: PROPOFOL 10 MG/ML 20 ML VIAL IV ONE (14:50)
--- NOTE | 2023-12-07 14:57 | PN ---
PROGRESS NOTE The patient was admitted with nausea, vomiting, and retractable vomiting. She was scheduled for an EGD today. Her temperature is 98.4, pulse is 40s to 60s, heart rate is 40 to 60, blood pressure 100 to 107/67, and O2 98 to 99 on room air. She came in with abdominal pain, nausea, chronic pancreatitis, hiatal hernia, and hypokalemia. Hopefully, she will get EGD. Check her labs. Check thyroid for bradycardia. Prognosis guarded. MMODL / IJN: [id number] /
[2023-12-07] MEDS: IV FLUID CONTINUATION 1,000 ML IV ONE (14:59)
[2023-12-07 18:18] VITALS: BP 107/71; PULSE 48; TEMP 98.7
--- NOTE | 2023-12-07 18:27 | P.OP ---
Date of Procedure: 12/07/23 Preoperative Diagnosis: Intractable Nausea and Vomiting Postoperative Diagnosis: Intractable Nausea and Vomiting Procedure(s) Performed: EGD with Biopsy Implants: None Anesthesia: other (Sedation) Surgeon: Luis A Ness Estimated Blood Loss (ml): 0 Pathology: other (Antral Biopsies) Condition: stable Disposition: PACU Operative Findings: Hiatal Hernia, Gastritis, and Bile Reflux Description of Procedure: The patient was taken to the endoscopy suite and placed in the left lateral decubitus position. Sedation was given and a mouth guard was inserted. A timeout was performed. An endoscope was inserted into the oropharynx, esophagus, and the stomach. The scope was then passed into to first and second portion of the duodenum. The scope was then withdrawn and retroflexed. There was evidence of a recurrence of the patient's hiatal hernia. There was some gastritis noted. There was also some bile noted in the stomach and bile reflux. Antral Biopsies were taken for H. Pylori. The scope was then fully withdrawn. This concluded the procedure and the patient tolerated the procedure well and was sent to the PACU in stable condition.
== END 2023-12-07 18:46 | disposition home or self-care (01) ==
LOC: EC 08:33 → 6NMEDSUR 14:55 → 4FBP 12-05 16:43
PROVIDERS: ADMIT Family Medicine; ATTEND Family Medicine
DX: K29.50 Unspecified chronic gastritis without bleeding (principal); E86.0 Dehydration; K44.9 Diaphragmatic hernia without obstruction or gangrene; E87.6 Hypokalemia; F12.10 Cannabis abuse, uncomplicated; Z90.49 Acquired absence of other specified parts of digestive tract; Z87.19 Personal history of other diseases of the digestive system
CPT/HCPCS: 36415; 43239; 74018; 74240; 80048; 80053; 80076; 81003; 81025; 82150; 83605; 83690; 85025; 88305; 96361; 96374; 96375; 96376; 99285

== ENCOUNTER 2024-01-08 08:05 | Emergency (ER) | payer OTHER ==
[2024-01-08 08:12] VITALS: TEMP 97.9
[2024-01-08] MEDS: KETOROLAC 15 MG/ML 1 ML VIAL IVP STA (08:39)
[2024-01-08] MEDS: ONDANSETRON 4 MG/2 ML VIAL IVP STA ×3 (08:40→13:38)
[2024-01-08] MEDS: SODIUM CHLORIDE 0.9% 1,000 ML IV STA (08:41)
[2024-01-08] MEDS: HYDROmorphone 0.5 MG/0.5 ML SYRINGE IVP STA (08:42)
--- NOTE | 2024-01-08 08:48 | ED ---
Nausea/Vomiting/Diarrhea HPI - General Chief complaint: Nausea/Vomiting/Diarrhea Stated complaint: Vomiting Time Seen by Provider: 01/08/24 08:17 Source: patient, RN notes reviewed Mode of arrival: ambulatory Limitations: no limitations - History of Present Illness Initial comments: This is a 28-year-old female who presents to the emergency department for abdominal pain, nausea, and vomiting. States that it started around 4 to 5 AM. States that this feels similar to prior bouts of pancreatitis. Pain is in the epigastric region. She has been here multiple times for problems with recurrent pancreatitis. She does also have problems with cannabinoid hyperemesis syndrome. Denies any sick contacts. MD complaint: nausea, vomiting, abdominal pain - Related Data Home Medications Medication Instructions Recorded Confirmed Famotidine [Pepcid] 20 mg PO BID PRN 05/07/23 01/09/24 HYDROcodone/APAP 5-325MG [[place] 1 tab PO DAILY PRN 08/14/23 01/09/24 5-325] Previous Rx's Medication Instructions Recorded Ketorolac [Toradol] 10 mg PO Q6HR PRN #15 tab 01/08/24 Ondansetron Odt [Zofran Odt] 8 mg PO Q8HR PRN #30 tab 01/08/24 Promethazine Suppository 25 mg RECTAL QID PRN #12 supp 01/08/24 [Phenergan] Allergies Allergy/AdvReac Type Severity Reaction Status Date / Time No Known Allergies Allergy Verified 01/09/24 07:09 Review of Systems ROS Statement: Those systems with pertinent positive or pertinent negative responses have been documented in the HPI. ROS Other: All systems not noted in ROS Statement are negative. Past Medical History Past Medical History: GERD/Reflux Additional Past Medical History / Comment(s): MIGRAINES, BACK PAIN. 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 No other history of STDs. Pancreatitis. History of Any Multi-Drug Resistant Organisms: None Reported Past Surgical History: Cholecystectomy, Hernia Repair Additional Past Surgical History / Comment(s): Hiatal hernia repair. Past Anesthesia/Blood Transfusion Reactions: Motion Sickness Additional Past Anesthesia/Blood Transfusion Reaction / Comment(s): NO ANESTHESIA HX Past Psychological History: Anxiety Smoking Status: Never smoker Past Alcohol Use History: Occasional Past Drug Use History: Marijuana - Past Family History Mother Family Medical History: No Reported History Additional Family Medical History / Comment(s): Maternal grandmother had colon cancer. A maternal great grandmother had breast cancer. Father Family Medical History: Hypertension General Exam Limitations: no limitations General appearance: alert, in distress Head exam: Present: atraumatic, normocephalic, normal inspection Respiratory exam: Present: normal lung sounds bilaterally. Absent: respiratory distress, wheezes, rales, rhonchi, stridor Cardiovascular Exam: Present: regular rate, normal rhythm, normal heart sounds. Absent: systolic murmur, diastolic murmur, rubs, gallop, clicks GI/Abdominal exam: Present: soft, tenderness (Epigastric), normal bowel sounds. Absent: distended Neurological exam: Present: alert, oriented X3, CN II-XII intact Psychiatric exam: Present: normal affect, normal mood Skin exam: Present: warm, dry, intact, normal color. Absent: rash Course Vital Signs 01/08/24 01/08/24 01/08/24 08:11 11:54 14:35 Temperature 97.9 F Pulse Rate 61 69 74 Respiratory 20 16 16 Rate Blood Pressure 146/93 103/68 95/58 O2 Sat by Pulse 99 100 100 Oximetry Medical Decision Making - Medical Decision Making This is a 28 year old female who presents to the emergency department for abdominal pain, nausea, and vomiting. Was pt. sent in by a medical professional or institution? @ -No Did you speak to anyone other than the patient for history? @ -No Did you review nursing and triage notes? @ -Yes, and I agree, it is accurate with regards to the patient's symptoms. Were old charts reviewed? @ -No Differential Diagnosis? @ -Differential Abdominal Pain Women: Appendicitis, Cholecystitis, diverticulosis, ischemic bowel, pancreatitis, hepatitis, UTI, gastroenteritis, AAA, incarcerated hernia, bowel obstruction, constipation, inflammatory bowel, hepatitis, peptic ulcer disease, splenic infarction, perforated viscus, vulvitis, ovarian torsion, PID, kidney stone, placenta abruption, this is not meant to be an all-inclusive list EKG interpreted by me (3pts min.)? @ -Not obtained X-rays interpreted by me (1pt min.)? @ -Not obtained CT interpreted by me (1pt min.)? @ -Not obtained U/S interpreted by me (1pt. min.)? @ -Ultrasound of the abdomen obtained. My interpretation identifies no dilation of the pancreatic duct. What testing was considered but not performed? (CT, X-rays, U/S, labs)? Why? @ -None What meds were considered but not given? Why? @ -None Did you discuss the management of the patient with other professionals? @ -No Did you reconcile home meds? @ -No Was smoking cessation discussed for >3mins.? @ -No Was critical care preformed (if so, how long)? @ -No Were there social determinants of health that impacted care today? How? (Homelessness, low income, unemployed, alcoholism, drug addiction, transportation, low edu. Level, literacy, decrease access to med. care, detention, rehab)? @ -No Was there de-escalation of care discussed even if they declined? (Discuss DNR or withdrawal of care, Hospice)? @ -No What co-morbidities impacted this encounter? (DM, HTN, Smoking, COPD, CAD, Cancer, CVA, Hep., AIDS, mental health diagnosis, sleep apnea, morbid obesity)? @ -None Was patient admitted / discharged? @ -Discharged. Lab work demonstrates leukocytosis with a white blood cell count of 14.9 and was otherwise unremarkable. Amylase mildly elevated at 133. Patient has had several CT scans in the past and understandably did not want to repeat this to expose herself to more radiation. We subsequently obtained an ultrasound of the abdomen to evaluate for any irregularities with relation to the pancreas specifically. No abnormality was identified. Pancreatic enzymes were repeated after a few hours and had actually decreased further. Her symptoms were eventually controlled to the point of her being able to tolerate oral intake. I did offer her admission for intractable nausea and vomiting. However, she felt like she was able to try going home at this point and was comfortable with discharge home. She was given a refill on her Zofran and I did also send in Phenergan suppositories. Toradol prescribed as well, which she often finds beneficial. She is advised to slowly advance her diet as tolerated and remain well-hydrated. Advised close follow-up with her PCP. Patient discharged home in stable condition. Case discussed with ED attending, Dr. Garcia. Return precautions reviewed in depth, the patient is instructed to return to the emergency department with any new, worsening, or concerning symptoms. Patient verbalized understanding. Undiagnosed new problem with uncertain prognosis? @ -None Drug Therapy requiring intensive monitoring for toxicity (Heparin, Nitro, Insulin, Cardizem)? @ -None Were any procedures done? @ -None Diagnosis/symptom? @ -Nausea and vomiting, epigastric pain Acute, or Chronic, or Acute on Chronic? @ -Acute Uncomplicated (without systemic symptoms) or Complicated (systemic symptoms)? @ -Uncomplicated Side effects of treatment? @ -None Exacerbation, Progression, or Severe Exacerbation] @ -Not applicable Poses a threat to life or bodily function? @ -No - Lab Data Result diagrams: 01/08/24 09:00 01/08/24 09:00 Lab Results 01/08/24 01/08/24 01/08/24 Range/Units 09:00 09:00 09:00 WBC 14.9 H (3.8-10.6) k/uL RBC 5.10 (3.80-5.40) m/uL Hgb 14.7 (11.4-16.0) gm/dL Hct 46.0 (34.0-46.0) % MCV 90.2 (80.0-100.0) fL MCH 28.8 (25.0-35.0) pg MCHC 32.0 (31.0-37.0) g/dL RDW 12.2 (11.5-15.5) % Plt Count 294 (150-450) k/uL MPV 8.5 Neutrophils % 85 % Lymphocytes % 11 % Monocytes % 3 % Eosinophils % 0 % Basophils % 0 % Neutrophils # 12.6 H (1.3-7.7) k/uL Lymphocytes # 1.6 (1.0-4.8) k/uL Monocytes # 0.5 (0-1.0) k/uL Eosinophils # 0.1 (0-0.7) k/uL Basophils # 0.0 (0-0.2) k/uL Sodium 139 (137-145) mmol/L Potassium 4.0 (3.5-5.1) mmol/L Chloride 107 (98-107) mmol/L Carbon Dioxide 20 L (22-30) mmol/L Anion Gap 12 mmol/L BUN 10 (7-17) mg/dL Creatinine 0.67 (0.52-1.04) mg/dL Est GFR (CKD-EPI)AfAm >90 (>60 ml/min/1.73 sqM) Est GFR (CKD-EPI)NonAf >90 (>60 ml/min/1.73 sqM) Glucose 163 H (74-99) mg/dL Plasma Lactic Acid Liya 2.0 (0.7-2.0) mmol/L Calcium 9.7 (8.4-10.2) mg/dL Magnesium 2.0 (1.6-2.3) mg/dL Total Bilirubin 0.4 (0.2-1.3) mg/dL AST 19 (14-36) U/L ALT 12 (4-34) U/L Alkaline Phosphatase 62 (38-126) U/L Total Protein 7.7 (6.3-8.2) g/dL Albumin 4.9 (3.5-5.0) g/dL Amylase 133 H (30-110) U/L Lipase 210 (23-300) U/L Urine Color Urine Appearance (Clear) Urine pH (5.0-8.0) Ur Specific Enders (1.001-1.035) Urine Protein (Negative) Urine Glucose (UA) (Negative) Urine Ketones (Negative) Urine Blood (Negative) Urine Nitrite (Negative) Urine Bilirubin (Negative) Urine Urobilinogen (<2.0) mg/dL Ur Leukocyte Esterase (Negative) Urine WBC (0-5) /hpf Ur Squamous Epith Cells (0-4) /hpf Urine Bacteria (None) /hpf Urine Mucus (None) /hpf Urine HCG, Qual (Not Detectd) 01/08/24 01/08/24 01/08/24 Range/Units 12:45 12:45 12:45 WBC (3.8-10.6) k/uL RBC (3.80-5.40) m/uL Hgb (11.4-16.0) gm/dL Hct (34.0-46.0) % MCV (80.0-100.0) fL MCH (25.0-35.0) pg MCHC (31.0-37.0) g/dL RDW (11.5-15.5) % Plt Count (150-450) k/uL MPV Neutrophils % % Lymphocytes % % Monocytes % % Eosinophils % % Basophils % % Neutrophils # (1.3-7.7) k/uL Lymphocytes # (1.0-4.8) k/uL Monocytes # (0-1.0) k/uL Eosinophils # (0-0.7) k/uL Basophils # (0-0.2) k/uL Sodium (137-145) mmol/L Potassium (3.5-5.1) mmol/L Chloride (98-107) mmol/L Carbon Dioxide (22-30) mmol/L Anion Gap mmol/L BUN (7-17) mg/dL Creatinine (0.52-1.04) mg/dL Est GFR (CKD-EPI)AfAm (>60 ml/min/1.73 sqM) Est GFR (CKD-EPI)NonAf (>60 ml/min/1.73 sqM) Glucose (74-99) mg/dL Plasma Lactic Acid Ilya (0.7-2.0) mmol/L Calcium (8.4-10.2) mg/dL Magnesium (1.6-2.3) mg/dL Total Bilirubin (0.2-1.3) mg/dL AST (14-36) U/L ALT (4-34) U/L Alkaline Phosphatase (38-126) U/L Total Protein (6.3-8.2) g/dL Albumin (3.5-5.0) g/dL Amylase 95 (30-110) U/L Lipase 107 (23-300) U/L Urine Color Light Yellow Urine Appearance Cloudy H (Clear) Urine pH 5.0 (5.0-8.0) Ur Specific [place] 1.024 (1.001-1.035) Urine Protein Trace H (Negative) Urine Glucose (UA) 1+ H (Negative) Urine Ketones 2+ H (Negative) Urine Blood Negative (Negative) Urine Nitrite Negative (Negative) Urine Bilirubin Negative (Negative) Urine Urobilinogen <2.0 (<2.0) mg/dL Ur Leukocyte Esterase Negative (Negative) Urine WBC 3 (0-5) /hpf Ur Squamous Epith Cells 5 H (0-4) /hpf Urine Bacteria Rare H (None) /hpf Urine Mucus Many H (None) /hpf Urine HCG, Qual Not Detected (Not Detectd) - Radiology Data Radiology results: report reviewed, image reviewed Disposition Clinical Impression: Nausea and vomiting, Epigastric pain Disposition: HOME SELF-CARE Instructions (If sedation given, give patient instructions): Acute Nausea and Vomiting (ED) Additional Instructions: Return to the emergency department with any new, worsening, or concerning symptoms. Take the Toradol with Tylenol as needed for pain relief. If you choose to take the Toradol, do not take any other anti-inflammatories such as ibuprofen, take one or the other. You can take the Zofran up to every 8 hours as needed for nausea and vomiting. The Phenergan suppositories can be used up to every 6 hours as well. Slowly advance your diet as tolerated and remain w ell-hydrated. Follow up with your primary care provider in 1-2 days. Prescriptions: Promethazine Suppository [Phenergan] 25 mg RECTAL QID PRN #12 supp PRN Reason: Nausea And Vomiting Ketorolac [Toradol] 10 mg PO Q6HR PRN #15 tab PRN Reason: Pain Ondansetron Odt [Zofran Odt] 8 mg PO Q8HR PRN #30 tab PRN Reason: Nausea And Vomiting Is patient prescribed a controlled substance at d/c from ED?: No Referrals: Terry Rivera MD [Primary Care Provider] - 1-2 days Time of Disposition: 14:32
[2024-01-08 09:14] LABS: Basophils % (A) 0 %; Eosinophils # (A) 0.1 k/uL (0-0.7); Eosinophils % (A) 0 %; HGB 14.7 gm/dL (11.4-16.0); Lymphocytes # (A) 1.6 k/uL (1.0-4.8); Lymphocytes % (A) 11 %; MCH 28.8 pg (25.0-35.0); MCV 90.2 fL (80.0-100.0); Mean Platelet Volume 8.5; Monocytes # (A) 0.5 k/uL (0-1.0); Monocytes % (A) 3 %; Neutrophils # (A) 12.6 k/uL (1.3-7.7); Neutrophils % (A) 85 %; Platelet Count 294 k/uL (150-450); RDW 12.2 % (11.5-15.5); WBC 14.9 k/uL (3.8-10.6)
[2024-01-08 09:28] LABS: ALT 12 U/L (4-34); AST 19 U/L (14-36); African American GFR (CKD) >90 (>60 ml/min/1.73 sqM); Albumin 4.9 g/dL (3.5-5.0); Alkaline Phosphatase 62 U/L (38-126); Amylase 133 U/L (30-110); Anion Gap 12 mmol/L; Blood Urea Nitrogen 10 mg/dL (7-17); Calcium 9.7 mg/dL (8.4-10.2); Carbon Dioxide 20 mmol/L (22-30); Chloride 107 mmol/L (98-107); Glucose 163 mg/dL (74-99); Lipase 210 U/L (23-300); Non-African American GFR(CKD) >90 (>60 ml/min/1.73 sqM); Sodium 139 mmol/L (137-145); Total Bilirubin 0.4 mg/dL (0.2-1.3); Total Protein 7.7 g/dL (6.3-8.2)
[2024-01-08] MEDS: droPERidol 5 MG/2 ML VIAL IVP ONE (10:00)
[2024-01-08] MEDS: HYDROmorphone 1 MG/ML 1 ML SYRINGE IVP STA ×2 (10:45→12:38)
[2024-01-08 11:54] VITALS: RESP 16
--- NOTE | 2024-01-08 12:11 | US ---
EXAMINATION TYPE: US abdomen limited DATE OF EXAM: 01/08/2024 COMPARISON: CT: 12/02/23, US: 12/18/21 CLINICAL INDICATION: Female, 28 years old with history of LUQ pain, evaluate pancreas; Hx of pancreat itis, cholecystectomy TECHNIQUE: Grayscale and color Doppler imaging of the right upper quadrant was performed. FINDINGS: EXAM MEASUREMENTS: Liver Length: 13.9 cm Gallbladder: Surgically absent CBD: 0.45 cm Right Kidney: 4.2 x 3.6 x 4.2 cm MILL [employer]ILER NOTES: Pancreas: duct measuring 1.5mm which is within normal limits Sonographically unremarkable. Liver: Normal homogeneous appearance. No focal lesion. Gallbladder: Surgically absent Evidence for sonographic Espinosa's sign: No CBD: wnl Right Kidney: wnl IMPRESSION: No specific sonographic abnormality of the pancreas. Status post cholecystectomy. No biliary ductal d ilatation. [facility] Charles Hernandez, , 01/08/2024 12:09 PM
[2024-01-08 12:54] LABS: Appearance,Urine Cloudy (Clear); Bacteria,Urine Rare /hpf; Bilirubin,Urine Negative (Negative); Blood,Urine Negative (Negative); Color,Urine Light Yellow; Glucose,Urine (UA) 1+ (Negative); Leukocyte Esterase,Urine Negative (Negative); Mucus,Urine Many /hpf; Nitrite,Urine Negative (Negative); Protein,Urine Trace (Negative); Specific Gravity,Urine 1.024 (1.001-1.035); Squamous Epithelial Cell,Urine 5 /hpf (0-4); Urobilinogen,Urine <2.0 mg/dL (<2.0); WBC,Urine 3 /hpf (0-5)
[2024-01-08 12:59] LABS: Ketones,Urine 2+ (Negative)
[2024-01-08 13:00] LABS: Amylase 95 U/L (30-110); Lipase 107 U/L (23-300)
[2024-01-08 14:36] VITALS: BP 95/58; PULSE 74
== END 2024-01-08 14:39 | disposition home or self-care (01) ==
LOC: EC 08:05
CPT/HCPCS: 36415; 76705; 80053; 81001; 81025; 82150; 83605; 83690; 83735; 85025; 96361; 96365; 96375; 99285

== ENCOUNTER 2024-01-08 22:11 | Observation (INO) | payer OTHER ==
[2024-01-08] MEDS: HYDROmorphone 0.5 MG/0.5 ML SYRINGE IVP STA (23:02)
[2024-01-08] MEDS: SODIUM CHLORIDE 0.9% 2,000 ML IV STA (23:03)
[2024-01-08] MEDS: ONDANSETRON 4 MG/2 ML VIAL IVP STA (23:03)
[2024-01-08 23:28] LABS: Basophils % (A) 0 %; Eosinophils % (A) 0 %; HCT 41.4 % (34.0-46.0); HGB 13.8 gm/dL (11.4-16.0); Lymphocytes # (A) 1.3 k/uL (1.0-4.8); Lymphocytes % (A) 12 %; MCH 29.5 pg (25.0-35.0); MCHC 33.4 g/dL (31.0-37.0); MCV 88.4 fL (80.0-100.0); Mean Platelet Volume 8.7; Monocytes # (A) 0.6 k/uL (0-1.0); Monocytes % (A) 5 %; Neutrophils # (A) 8.6 k/uL (1.3-7.7); Neutrophils % (A) 81 %; Platelet Count 257 k/uL (150-450); RBC 4.68 m/uL (3.80-5.40); RDW 12.2 % (11.5-15.5); WBC 10.7 k/uL (3.8-10.6)
[2024-01-08] MEDS ORDERED: NALOXONE 0.4 MG/ML 1 ML VIAL IV PRN (23:28)
--- NOTE | 2024-01-08 23:33 | ED ---
Nausea/Vomiting/Diarrhea HPI - General Chief complaint: Nausea/Vomiting/Diarrhea Stated complaint: Abd Pain,Nausea Time Seen by Provider: 01/08/24 22:22 Source: patient Mode of arrival: ambulatory Limitations: no limitations - History of Present Illness Initial comments: 28-year-old female presenting with chief complaint of nausea and vomiting. Patient has history of cannabinoid induced hyperemesis. She was seen here earlier today for vomiting. She was given fluids and Zofran, reassessment of her labs showed improvement and patient was discharged home. She states that at home she has been continuously vomiting. She is having generalized abdominal pain. No hematemesis, hematochezia, melena. No fevers. No chest pain or difficulty breathing. - Related Data Home Medications Medication Instructions Recorded Confirmed Famotidine [Pepcid] 20 mg PO BID PRN 05/07/23 01/08/24 HYDROcodone/APAP 5-325MG [[place] 1 tab PO DAILY PRN 08/14/23 01/08/24 5-325] Previous Rx's Medication Instructions Recorded Ketorolac [Toradol] 10 mg PO Q6HR PRN #15 tab 01/08/24 Ondansetron Odt [Zofran Odt] 8 mg PO Q8HR PRN #30 tab 01/08/24 Promethazine Suppository 25 mg RECTAL QID PRN #12 supp 01/08/24 [Phenergan] Allergies Allergy/AdvReac Type Severity Reaction Status Date / Time No Known Allergies Allergy Verified 01/08/24 12:48 Review of Systems ROS Statement: Those systems with pertinent positive or pertinent negative responses have been documented in the HPI. ROS Other: All systems not noted in ROS Statement are negative. Past Medical History Past Medical History: GERD/Reflux Additional Past Medical History / Comment(s): MIGRAINES, BACK PAIN. 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 No other history of STDs. Pancreatitis. History of Any Multi-Drug Resistant Organisms: None Reported Past Surgical History: Cholecystectomy, Hernia Repair Additional Past Surgical History / Comment(s): Hiatal hernia repair. Past Anesthesia/Blood Transfusion Reactions: Motion Sickness Additional Past Anesthesia/Blood Transfusion Reaction / Comment(s): NO ANESTHESIA HX Past Psychological History: Anxiety Smoking Status: Never smoker Past Alcohol Use History: Occasional Past Drug Use History: Marijuana - Past Family History Mother Family Medical History: No Reported History Additional Family Medical History / Comment(s): Maternal grandmother had colon cancer. A maternal great grandmother had breast cancer. Father Family Medical History: Hypertension General Exam Limitations: no limitations General appearance: alert, in no apparent distress Head exam: Present: atraumatic, normocephalic, normal inspection Eye exam: Present: normal appearance, EOMI Neck exam: Present: normal inspection. Absent: meningismus Respiratory exam: Absent: respiratory distress Cardiovascular Exam: Present: regular rate GI/Abdominal exam: Present: soft. Absent: distended, tenderness, guarding, rebound, rigid Neurological exam: Present: alert, oriented X3 Psychiatric exam: Present: normal affect, normal mood Skin exam: Present: warm, dry Course Vital Signs 01/08/24 22:14 Temperature 97.9 F Pulse Rate 92 Respiratory 20 Rate Blood Pressure 160/100 O2 Sat by Pulse 95 Oximetry Medical Decision Making - Medical Decision Making Was pt. sent in by a medical professional or institution (, PA, TOOTH CUTTER CLUTCH, urgent care, hospital, or usp...) When possible be specific @ -No Did you speak to anyone other than the patient for history (EMS, parent, family, police, friend...)? What history was obtained from this source @ -No Did you review nursing and triage notes (agree or disagree)? Why? @ -I reviewed and agree with nursing and triage notes Were old charts reviewed (outside hosp., previous admission, EMS record, old EKG, old radiological studies, urgent care reports/EKG's, usp records)? Report findings @ -Reviewed the patient's visit from earlier today Differential Diagnosis (chest pain, altered mental status, abdominal pain women, abdominal pain men, vaginal bleeding, weakness, fever, dyspnea, syncope, headache, dizziness, GI bleed, back pain, seizure, CVA, palpatations, mental health, musculoskeletal)? @ -Differential includes cannabinoid induced hyperemesis, bowel obstruction, constipation, gastroenteritis, appendicitis, cholecystitis, this is not an all- inclusive list EKG interpreted by me (3pts min.). @ -As above X-rays interpreted by me (1pt min.). @ -None done CT interpreted by me (1pt min.). @ -None done U/S interpreted by me (1pt. min.). @ -None done What testing was considered but not performed or refused? (CT, X-rays, U/S, labs)? Why? @ -CT was considered however the patient has had numerous CTs and has had similar symptoms to this in the past, she also had a thorough workup earlier today. I believe we can forego CT at this time What meds were considered but not given or refused? Why? @ -None Did you discuss the management of the patient with other professionals (professionals i.e. Dr., PA, TOOTH CUTTER CLUTCH, lab, RT, psych nurse, oncology social work, refinery operator gas plant, teacher, military source operations officer, case making machine operator)? Give summary @ -I spoke with Dr. Rivera who accepts admission Was smoking cessation discussed for >3mins.? @ -No Was critical care preformed (if so, how long)? @ -No Were there social determinants of health that impacted care today? How? (Homelessness, low income, unemployed, alcoholism, drug addiction, transportation, low edu. Level, literacy, decrease access to med. care, long term, rehab)? @ -No Was there de-escalation of care discussed even if they declined (Discuss DNR or withdrawal of care, Hospice)? DNR status @ -No What co-morbidities impacted this encounter? (DM, HTN, Smoking, COPD, CAD, Cancer, CVA, ARF, Chemo, Hep., AIDS, mental health diagnosis, sleep apnea, morbid obesity)? @ -None Was patient admitted / discharged? Hospital course, mention meds given and route, prescriptions, significant lab abnormalities, going to OR and other pertinent info. @ -28-year-old female presenting with chief complaint of nausea and vomiting. Here earlier today for nausea and vomiting. States that her Zofran is not wor arlene at home. Has been admitted here on multiple occasions for intractable nausea and vomiting. WBC 10.7, likely reactive. Amylase and lipase have improved and are down to 76 and 70 respectively. Considering the patient's pain level and intractable vomiting she will be admitted for observation. She is agreeable with this plan. I discussed this case with my attending Dr. Boykin Undiagnosed new problem with uncertain prognosis? @ -No Drug Therapy requiring intensive monitoring for toxicity (Heparin, Nitro, Insulin, Cardizem)? @ -No Were any procedures done? @ -No Diagnosis/symptom? @ -Intractable nausea and vomiting Acute, or Chronic, or Acute on Chronic? @ -Acute Uncomplicated (without systemic symptoms) or Complicated (systemic symptoms)? @ -Complicated Side effects of treatment? @ -No Exacerbation, Progression, or Severe Exacerbation? @ -No Poses a threat to life or bodily function? How? (Chest pain, USA, MD, pneumonia, PE, COPD, DKA, ARF, appy, cholecystitis, CVA, Diverticulitis, Homicidal, Suicidal, threat to staff... and all critical care pts) @ -Yes - Lab Data Result diagrams: 01/08/24 22:38 01/08/24 22:38 Lab Results 01/08/24 01/08/24 Range/Units 22:38 22:38 WBC 10.7 H (3.8-10.6) k/uL RBC 4.68 (3.80-5.40) m/uL Hgb 13.8 (11.4-16.0) gm/dL Hct 41.4 (34.0-46.0) % MCV 88.4 (80.0-100.0) fL MCH 29.5 (25.0-35.0) pg MCHC 33.4 (31.0-37.0) g/dL RDW 12.2 (11.5-15.5) % Plt Count 257 (150-450) k/uL MPV 8.7 Neutrophils % 81 % Lymphocytes % 12 % Monocytes % 5 % Eosinophils % 0 % Basophils % 0 % Neutrophils # 8.6 H (1.3-7.7) k/uL Lymphocytes # 1.3 (1.0-4.8) k/uL Monocytes # 0.6 (0-1.0) k/uL Eosinophils # 0.0 (0-0.7) k/uL Basophils # 0.0 (0-0.2) k/uL Sodium 137 (137-145) mmol/L Potassium 3.8 (3.5-5.1) mmol/L Chloride 110 H (98-107) mmol/L Carbon Dioxide 15 L (22-30) mmol/L Anion Gap 12 mmol/L BUN 11 (7-17) mg/dL Creatinine 0.54 (0.52-1.04) mg/dL Est GFR (CKD-EPI)AfAm >90 (>60 ml/min/1.73 sqM) Est GFR (CKD-EPI)NonAf >90 (>60 ml/min/1.73 sqM) Glucose 131 H (74-99) mg/dL Calcium 9.7 (8.4-10.2) mg/dL Total Bilirubin 0.8 (0.2-1.3) mg/dL AST 19 (14-36) U/L ALT 12 (4-34) U/L Alkaline Phosphatase 62 (38-126) U/L Total Protein 7.5 (6.3-8.2) g/dL Albumin 4.8 (3.5-5.0) g/dL Amylase 76 (30-110) U/L Lipase 70 (23-300) U/L Disposition Clinical Impression: Intractable nausea and vomiting Disposition: ADMITTED IP TO THIS HOSP Condition: Fair Time of Disposition: 23:33
[2024-01-08 23:41] LABS: ALT 12 U/L (4-34); AST 19 U/L (14-36); African American GFR (CKD) >90 (>60 ml/min/1.73 sqM); Albumin 4.8 g/dL (3.5-5.0); Alkaline Phosphatase 62 U/L (38-126); Amylase 76 U/L (30-110); Anion Gap 12 mmol/L; Blood Urea Nitrogen 11 mg/dL (7-17); Calcium 9.7 mg/dL (8.4-10.2); Carbon Dioxide 15 mmol/L (22-30); Chloride 110 mmol/L (98-107); Glucose 131 mg/dL (74-99); Lipase 70 U/L (23-300); Non-African American GFR(CKD) >90 (>60 ml/min/1.73 sqM); Potassium 3.8 mmol/L (3.5-5.1); Sodium 137 mmol/L (137-145); Total Bilirubin 0.8 mg/dL (0.2-1.3); Total Protein 7.5 g/dL (6.3-8.2)
[2024-01-09] MEDS: SODIUM CHLORIDE 0.9% 1,000 ML IV SCH (01:37)
[2024-01-09 01:46] LABS: Appearance,Urine Clear (Clear); Bilirubin,Urine Negative (Negative); Blood,Urine Trace (Negative); Color,Urine Light Yellow; Glucose,Urine (UA) 1+ (Negative); Leukocyte Esterase,Urine Negative (Negative); Mucus,Urine Moderate /hpf; Nitrite,Urine Negative (Negative); PH, Urine 5.5 (5.0-8.0); Protein,Urine Trace (Negative); RBC,Urine 2 /hpf (0-5); Specific Gravity,Urine 1.025 (1.001-1.035); Squamous Epithelial Cell,Urine 3 /hpf (0-4); Urobilinogen,Urine <2.0 mg/dL (<2.0); WBC,Urine 3 /hpf (0-5)
[2024-01-09 02:16] LABS: Ketones,Urine 4+ (Negative)
[2024-01-09] MEDS: HYDROmorphone 0.5 MG/0.5 ML SYRINGE IVP PRN (02:28)
[2024-01-09] MEDS: ONDANSETRON 4 MG/2 ML VIAL IVP PRN (04:39)
[2024-01-09] MEDS: TRIMETHOBENZAMIDE 100 MG/ML 2 ML VIAL IM STA (12:15)
[2024-01-09] MEDS: TRIMETHOBENZAMIDE 100 MG/ML 2 ML VIAL IM PRN (12:57)
[2024-01-09] MEDS ORDERED: HYDROcodone/APAP 5-325MG 1 EACH TAB PO PRN (13:06)
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
--- NOTE | 2024-01-09 15:41 | P.CONS ---
History of Present Illness - Reason for Consult Consult date: 01/09/24 Intractable nausea and vomiting Requesting physician: Olena Paulson - Chief Complaint Nausea and vomiting - History of Present Illness This a pleasant 28-year-old female with multiple hospitalizations for chronic nausea and cyclic vomiting. She has had multiple workup in the past with both gastroenterology and general surgery. She has had multiple endoscopic evaluat ions with her last 1 being a month ago on 12/07/[address] Ness patient had upper endoscopy with findings of small hiatal hernia and gastritis. Previous to that she has had multiple scopes done with Dr. Yusuf and a Shobha fundoplication in 2019 as well as cholecystectomy. Patient is a daily marijuana user. It was discussed with her in the past regarding cannabinoid cyclic vomiting and recommendation for quitting. Patient states that she has not quit and she is still using daily. She does state that Dilaudid makes her nausea and vomiting better as well as Zofran. States that she does not like scopolamine patches and does not like Phenergan. As she states that she was vomiting about every hour. She denies any hematemesis no coffee-ground emesis. Has some associated abdominal pain with the nausea and vomiting. She had some mild leukocytosis on admission with improvement otherwise labs are unremarkable. Abdominal ultrasound without any acute findings. Review of Systems REVIEW OF SYSTEMS: CARDIOPULMONARY: No chest pain or shortness of breath. Gastrointestinal: Abdominal pain. Cyclic nausea and vomiting. No hematemesis, coffee-ground emesis. No rectal bleeding, or melena. GENITOURINARY: No dysuria or hematuria. MUSCULOSKELETAL: Reports normal range of motion., Joint pain. SKIN: No rashes. No jaundice. ENDOCRINE: No chills, fevers. No excessive weight gain or loss. No polydipsia or polyuria. PSYCHIATRIC: Unremarkable. NEUROLOGY: No change in mental status. Denies dizziness, headache. ENT: Vision unremarkable. CONSTITUTIONAL: No recent weight loss. No fever, chills, night sweats. Past Medical History Past Medical History: GERD/Reflux Additional Past Medical History / Comment(s): MIGRAINES, BACK PAIN. 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 No other history of STDs. Pancreatitis. History of Any Multi-Drug Resistant Organisms: None Reported Past Surgical History: Cholecystectomy, Hernia Repair Additional Past Surgical History / Comment(s): Hiatal hernia repair. Past Anesthesia/Blood Transfusion Reactions: Motion Sickness Additional Past Anesthesia/Blood Transfusion Reaction / Comm: NO ANESTHESIA HX Past Psychological History: Anxiety Smoking Status: Never smoker Past Alcohol Use History: Occasional Past Drug Use History: Marijuana - Past Family History Mother Family Medical History: No Reported History Additional Family Medical History / Comment(s): Maternal grandmother had colon cancer. A maternal great grandmother had breast cancer. Father Family Medical History: Hypertension Medications and Allergies Home Medications Medication Instructions Recorded Confirmed Type Famotidine [Pepcid] 20 mg PO BID PRN 05/07/23 01/09/24 History HYDROcodone/APAP 5-325MG [[place] 1 tab PO DAILY PRN 08/14/23 01/09/24 History 5-325] Ketorolac [Toradol] 10 mg PO Q6HR PRN #15 tab 01/08/24 01/09/24 Rx Ondansetron Odt [Zofran Odt] 8 mg PO Q8HR PRN #30 tab 01/08/24 01/09/24 Rx Promethazine Suppository 25 mg RECTAL QID PRN #12 supp 01/08/24 01/09/24 Rx [Phenergan] Allergies Allergy/AdvReac Type Severity Reaction Status Date / Time No Known Allergies Allergy Verified 01/09/24 07:09 Physical Exam Vitals: Vital Signs Temp Pulse Resp BP Pulse Ox 01/09/24 06:52 82 16 106/65 98 01/09/24 03:11 98.3 F 70 18 130/75 98 01/08/24 22:14 97.9 F 92 20 160/100 95 Intake and Output 01/08/24 01/09/24 01/09/24 22:59 06:59 14:59 Other: Weight 63.503 kg General appearance: The patient is alert, oriented, appears in no acute distress. HET: Head is normocephalic and atraumatic. Conjunctiva pink. Sclera anicteric. Neck: Supple without lymphadenopathy. Trachea midline. Heart: Regular. Lungs: Equal expansion, normal respiratory effort. Abdomen: Soft, nontender, nondistended. Skin: No rashes. No jaundice. Extremities: Normal skin color and turgor. No pedal edema. Neurological: No focal deficits. Alert and oriented x3. Results CBC & Chem 7: 01/08/24 22:38 01/08/24 22:38 Labs: Abnormal Lab Results - Last 24 Hours (Table) 01/08/24 01/08/24 01/09/24 Range/Units 22:38 22:38 01:35 WBC 10.7 H (3.8-10.6) k/uL Neutrophils # 8.6 H (1.3-7.7) k/uL Chloride 110 H (98-107) mmol/L Carbon Dioxide 15 L (22-30) mmol/L Glucose 131 H (74-99) mg/dL Urine Protein Trace H (Negative) Urine Glucose (UA) 1+ H (Negative) Urine Ketones 4+ H (Negative) Urine Blood Trace H (Negative) Urine Mucus Moderate H (None) /hpf Comments: Abdominal ultrasound reports reports no specific sonographic abnormality of the pancreas. Status postcholecystectomy. No biliary ductal dilation.. Assessment and Plan (1) Cyclical vomiting Narrative/Plan: 28-year-old female with multiple hospitalizations for recurrent nausea and vomiting with multiple endoscopic evaluations without any acute findings. Last EGD 12/07/2023 with findings of small hiatal hernia and gastritis. She has had Niesen fundoplication and cholecystectomy done in the past related to the similar symptoms. 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 Continue with symptomatic treatment, diet as tolerated, no plans for endoscopic evaluation. Recommend cannabinoid abstinence. Current Visit: No Status: Acute Code(s): R11.15 - CYCLICAL VOMITING SYNDROME UNRELATED TO MIGRAINE SNOMED Code(s): 22292412 (2) Marijuana abuse Current Visit: No Status: Acute Code(s): F12.10 - CANNABIS ABUSE, UNCOMPLICATED SNOMED Code(s): 40060714 Plan: 1. Continue symptomatic and supportive care 2. Antiemetics as needed. Offered Phenergan and scopolamine patch. Patient declined. Patient willing to use Tigan. 3. Protonix 40 mg daily for GI prophylaxis 4. Recommend cannabinoid abstinence 5. No plans for endoscopic evaluation patient had recent EGD on 12/07/2023 with findings of gastritis 6. Diet as tolerated Thank you for this consultation, we will continue to follow. Dr. Joanna Osorio I agree with the dictator's note, documented as a scribe by Radha Nelson.
[2024-01-09] MEDS: PANTOPRAZOLE 40 MG/10 ML VIAL IVP SCH (17:46)
--- NOTE | 2024-01-10 03:53 | HP ---
HISTORY AND PHYSICAL SUBJECTIVE: A 28-year-old white female, nausea, vomiting despite multiple antinausea medications. She is not sure what caused this. She is scheduled to get an upper GI tomorrow. White count is elevated at 10.7, neutrophil shift 8.6, CO2 was 15. Sodium was 137, potassium 3.8, glucose 131. UA shows trace blood, 4+ ketones, 1+ glucose, negative leukocyte esterase, moderate cells. OBJECTIVE: CARDIOVASCULAR: S1, S2. LUNGS: Transmitted upper sounds. GI: Soft, nontender. HEMATOLOGY: Negative Homans. NEUROLOGIC: Alert and oriented x4. PSYCH: Fair mood and affect. Can get upper GI with small bowel follow through. Clear liquid diet. Recheck labs in the morning. Continue home medications. Prognosis guarded. Please see further orders. Continue medications for GERD, migraines, back pain, pancreatitis. MMODL / IJN: [id number] /
[2024-01-10] MEDS: SCOPOLAMINE 1 MG/72 HR PATCH TRANSDERM SCH (09:51)
[2024-01-10] MEDS ORDERED: MORPHINE SULFATE 4 MG/ML SYRINGE IVP PRN (12:09)
--- NOTE | 2024-01-10 12:29 | P.PN ---
Subjective Progress Note Date: 01/10/24 CHIEF COMPLAINT: Recurrent nausea and vomiting HISTORY OF PRESENT ILLNESS: Upper GI with small bowel follow-through initially ordered for today. However, patient refused the test. She continues to have n ausea and vomiting and some mild epigastric pain. Vital stable. Patient does report daily marijuana use. She did state that the longer she is gone without marijuana was 40 days and did not have nausea or vomiting at that time. Patient seen and examined with Dr. Yusuf PHYSICAL EXAM: VITAL SIGNS: Reviewed. GENERAL: Well-developed in no acute distress. ABDOMEN: Soft. Nondistended. Mild epigastric tenderness NEUROLOGIC: Alert and oriented. Cranial nerves II through XII grossly intact. ASSESSMENT: 1. Recurrent nausea and vomiting possibly due to cannabinoid hyperemesis 2. History of cholecystectomy and Niesen fundoplication 3. Recent EGD 12/07/2023 revealing gastritis and hiatal hernia PLAN: -No surgical intervention planned -Patient refused upper GI and small bowel follow-through -Recommend cessation of marijuana use -Advance diet to clears Physician Floating Labor Gang Supervisor note has been reviewed by physician. Signing provider agrees with the documented findings, assessment, and plan of care. Objective - Vital Signs Vital signs: Vital Signs Temp 98.6 F 01/10/24 07:00 Pulse 75 01/10/24 07:00 Resp 16 01/10/24 07:00 BP 137/81 01/10/24 07:00 Pulse Ox 96 01/10/24 07:00 FiO2 Intake & Output 01/09/24 01/10/24 01/10/24 18:59 06:59 18:59 Weight 63.503 kg Other: Voiding Method Toilet Toilet # Voids 2 - Labs CBC & Chem 7: 01/08/24 22:38 01/08/24 22:38
--- NOTE | 2024-01-10 15:25 | P.PN ---
Subjective Progress Note Date: 01/10/24 Principal diagnosis: Nausea and vomiting This a pleasant 28-year-old female with multiple hospitalizations for chronic nausea and cyclic vomiting. She has had multiple workup in the past with both gastroenterology and general surgery. She has had multiple endoscopic evaluations with her last 1 being a month ago on 12/07/[address] Ness patient had upper endoscopy with findings of small hiatal hernia and gastritis. Previous to that she has had multiple scopes done with Dr. Yusuf and a Shobha fundoplication in 2019 as well as cholecystectomy. Patient is a daily marijuana user. It was discussed with her in the past regarding cannabinoid cyclic vomiting and recommendation for quitting. Patient states that she has not quit and she is still using daily. She does state that Dilaudid makes her nausea and vomiting better as well as Zofran. States that she does not like scopolamine patches and does not like Phenergan. As she states that she was vomiting about every hour. She denies any hematemesis no coffee-ground emesis. Has some associated abdominal pain with the nausea and vomiting. She had some mild leukocytosis on admission with improvement otherwise labs are unremarkable. Abdominal ultrasound without any acute findings. 01/10/2024 Patient seen and examined lying in bed resting when entering the room. States that she is still having nausea and vomiting. No hematemesis. Patient has a box of alcohol swabs on her bed and is sniffing them, states that it helps with her nausea. Objective - Vital Signs Vital signs: Vital Signs Temp 98.6 F 01/10/24 07:00 Pulse 75 01/10/24 07:00 Resp 16 01/10/24 07:00 BP 137/81 01/10/24 07:00 Pulse Ox 96 01/10/24 07:00 FiO2 Intake & Output 01/09/24 01/10/24 01/10/24 18:59 06:59 18:59 Weight 63.503 kg Other: Voiding Method Toilet # Voids 2 - Exam General appearance: The patient is alert, oriented, appears in no acute distress. HET: Head is normocephalic and atraumatic. Conjunctiva pink. Sclera anicteric. Neck: Supple without lymphadenopathy. Abdomen: Soft, nontender, nondistended with bowel sounds. No guarding or rigidity. Extremities: Normal skin color and turgor. No pedal edema Skin: No rashes, no jaundice Neurological: No focal deficits. Alert and oriented. - Labs CBC & Chem 7: 01/08/24 22:38 01/08/24 22:38 Assessment and Plan (1) Cyclical vomiting Narrative/Plan: 28-year-old female with multiple hospitalizations for recurrent nausea and vomiting with multiple endoscopic evaluations without any acute findings. Last EGD 12/07/2023 with findings of small hiatal hernia and gastritis. She has had Niesen fundoplication and cholecystectomy done in the past related to the similar symptoms. 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 Continue with symptomatic treatment, diet as tolerated, no plans for endoscopic evaluation. Recommend cannabinoid abstinence. Current Visit: No Status: Acute Code(s): R11.15 - CYCLICAL VOMITING SYNDROME UNRELATED TO MIGRAINE SNOMED Code(s): 90975945 (2) Marijuana abuse Narrative/Plan: Discussed with patient importance of marijuana abstinence. Nausea and vomiting likely cyclic from cannabinoid hyperemesis. Current Visit: No Status: Acute Code(s): F12.10 - CANNABIS ABUSE, UNCOMPLICATED SNOMED Code(s): 44349285 Plan: 1. Continue symptomatic and supportive care 2. Antiemetics as needed. Will add scopolamine patch. Discussed with patient not to touch the patch or her eyes. Wash hands after touching patch. 3. Protonix 40 mg daily for GI prophylaxis 4. Recommend cannabinoid abstinence 5. No plans for endoscopic evaluation patient had recent EGD on 12/07/2023 with findings of gastritis 6. Diet as tolerated 7. Do not recommend continuation of sniffing alcohol pads. Discussed with patient consider essential oils such as heena or peppermint for nausea. Thank you for this consultation, we will continue to follow. Dr. Joanna Osorio I agree with the dictator's note, documented as a scribe by Radha Nelson.
[2024-01-10] MEDS: FAMOTIDINE 20 MG TAB PO PRN (20:44)
--- NOTE | 2024-01-11 03:59 | PN ---
PROGRESS NOTE SUBJECTIVE: A 28-year-old white female. She is on Pepcid 20 b.i.d., Lodine 400 t.i.d., Protonix 40 daily, transdermal scopolamine, Tigan p.r.n. for nausea and vomiting. She is going to have an upper GI with small-bowel follow-through due to progressive nausea and vomiting. Medications have been used for nausea. Continue current treatment. OBJECTIVE: VITAL SIGNS: Stable. Afebrile. NEUROLOGIC: Alert and oriented x3. OPHTHALMOLOGIC: Pupils equal, round, reactive. Wait for Surgical and GI recommendations, possible gastroparesis. She can do an upper GI with small-bowel follow-through. Prognosis guarded. MMODL / IJN: [id number] /
[2024-01-11 07:41] VITALS: RESP 16
[2024-01-11 08:57] LABS: Basophils # (A) 0.04 X 10*3/uL (0.00-0.10); Basophils % (A) 0.6 %; Eosinophils # (A) 0.07 X 10*3/uL (0.04-0.35); HCT 35.5 % (37.2-46.3); HGB 12.3 g/dL (12.0-15.0); Lymphocytes # (A) 1.46 X 10*3/uL (0.90-5.00); MCH 29.9 pg (27.0-32.0); MCHC 34.6 g/dL (32.0-37.0); MCV 86.2 FL (80.0-97.0); Mean Platelet Volume 11.8 FL (9.5-12.2); Monocytes # (A) 0.61 X 10*3/uL (0.20-1.00); Monocytes % (A) 8.8 %; NRBC Per 100 WBC 0 X 10*3/uL (0.00-0.01); Neutrophils # (A) 4.74 X 10*3/uL (1.80-7.70); Neutrophils % (A) 68.3 %; Platelet Count 174 X 10*3/uL (140-440); RBC 4.12 X 10*6/uL (4.10-5.20); RDW 11.9 % (11.5-14.5); WBC 6.94 X 10*3/uL (4.50-10.00)
[2024-01-11 09:16] LABS: ALT 90 U/L (8-44); AST 154 U/L (13-35); Albumin 4.1 g/dL (3.8-4.9); Albumin/Globulin Ratio 2.28 Ratio (1.60-3.17); Alkaline Phosphatase 68 U/L (41-126); Blood Urea Nitrogen 4.7 mg/dL (9.0-27.0); Calcium 8.4 mg/dL (8.7-10.3); Carbon Dioxide 20.2 mmol/L (21.6-31.8); Chloride 103 mmol/L (96-109); Globulin 1.8 g/dL (1.6-3.3); Glucose 82 mg/dL (70-110); Potassium 3.3 mmol/L (3.5-5.5); Sodium 135 mmol/L (135-145); Total Bilirubin 0.9 mg/dL (0.3-1.2); Total Protein 5.9 g/dL (6.2-8.2)
--- NOTE | 2024-01-11 11:10 | P.PN ---
Subjective Progress Note Date: 01/11/24 CHIEF COMPLAINT: Recurrent nausea and vomiting HISTORY OF PRESENT ILLNESS: Patient reports her nausea is improving. She denies any vomiting. She is having flatus. She feels her diet can be advanced. Af ebrile. WBC 6.94 potassium 3.3 PHYSICAL EXAM: VITAL SIGNS: Reviewed. GENERAL: Well-developed in no acute distress. ABDOMEN: Soft. Nondistended. Mild epigastric tenderness NEUROLOGIC: Alert and oriented. Cranial nerves II through XII grossly intact. ASSESSMENT: 1. Recurrent nausea and vomiting possibly due to cannabinoid hyperemesis 2. History of cholecystectomy and Niesen fundoplication 3. Recent EGD 12/07/2023 revealing gastritis and hiatal hernia PLAN: -No surgical intervention planned -Patient can be discharged from surgical standpoint. -Patient to follow-up with Dr. Yusuf in office -Patient refused upper GI and small bowel follow-through -Recommend cessation of marijuana use -Advance diet to full liquids and then as tolerated Physician Photographic Technician note has been reviewed by physician. Signing provider agrees with the documented findings, assessment, and plan of care. Objective - Vital Signs Vital signs: Vital Signs Temp 98.4 F 01/11/24 07:00 Pulse 77 01/11/24 07:00 Resp 16 01/11/24 07:00 BP 103/64 01/11/24 07:00 Pulse Ox 98 01/11/24 07:00 FiO2 Intake & Output 01/10/24 01/11/24 01/11/24 18:59 06:59 18:59 Other: Voiding Method Toilet Toilet # Voids 0 3 - Labs CBC & Chem 7: 01/11/24 03:02 01/11/24 03:02 Labs: Abnormal Lab Results - Last 24 Hours (Table) 01/11/24 01/11/24 Range/Units 03:02 03:02 Hct 35.5 L (37.2-46.3) % Potassium 3.3 L (3.5-5.5) mmol/L Carbon Dioxide 20.2 L (21.6-31.8) mmol/L BUN 4.7 L (9.0-27.0) mg/dL Creatinine 0.5 L (0.6-1.5) mg/dL BUN/Creatinine Ratio 9.40 L (12.00-20.00) Ratio Calcium 8.4 L (8.7-10.3) mg/dL AST 154 H (13-35) U/L ALT 90 H (8-44) U/L Total Protein 5.9 L (6.2-8.2) g/dL
[2024-01-11] MEDS: POTASSIUM CHLORIDE ER 20 MEQ TAB.ER PO STA (11:27)
[2024-01-11] MEDS: ETODOLAC 400 MG TAB PO PRN (12:10)
[2024-01-11 13:41] VITALS: BP 103/61; PULSE 58; TEMP 99.3
--- NOTE | 2024-01-11 14:50 | P.PN ---
Subjective Progress Note Date: 01/11/24 Principal diagnosis: Nausea and vomiting This a pleasant 28-year-old female with multiple hospitalizations for chronic nausea and cyclic vomiting. She has had multiple workup in the past with both gastroenterology and general surgery. She has had multiple endoscopic evaluations with her last 1 being a month ago on 12/07/[address] Ness patient had upper endoscopy with findings of small hiatal hernia and gastritis. Previous to that she has had multiple scopes done with Dr. Yusuf and a Shobha fundoplication in 2019 as well as cholecystectomy. Patient is a daily marijuana user. It was discussed with her in the past regarding cannabinoid cyclic vomiting and recommendation for quitting. Patient states that she has not quit and she is still using daily. She does state that Dilaudid makes her nausea and vomiting better as well as Zofran. States that she does not like scopolamine patches and does not like Phenergan. As she states that she was vomiting about every hour. She denies any hematemesis no coffee-ground emesis. Has some associated abdominal pain with the nausea and vomiting. She had some mild leukocytosis on admission with improvement otherwise labs are unremarkable. Abdominal ultrasound without any acute findings. 01/10/2024 Patient seen and examined lying in bed resting when entering the room. States that she is still having nausea and vomiting. No hematemesis. Patient has a box of alcohol swabs on her bed and is sniffing them, states that it helps with her nausea. 01/11/2024 Patient seen and examined lying in bed. She is more awake and alert looking like she is feeling much better. Patient states she is feeling better. She is using scopolamine patch. Nausea and vomiting improved. Objective - Vital Signs Vital signs: Vital Signs Temp 98.4 F 01/11/24 07:00 Pulse 77 01/11/24 07:00 Resp 16 01/11/24 07:00 BP 103/64 01/11/24 07:00 Pulse Ox 98 01/11/24 07:00 FiO2 Intake & Output 01/10/24 01/11/24 01/11/24 18:59 06:59 18:59 Other: Voiding Method Toilet Toilet # Voids 0 3 - Exam General appearance: The patient is alert, oriented, appears in no acute distress. HET: Head is normocephalic and atraumatic. Conjunctiva pink. Sclera anicteric. Neck: Supple without lymphadenopathy. Abdomen: Soft, nontender, nondistended with bowel sounds. No guarding or rigidity. Extremities: Normal skin color and turgor. No pedal edema Skin: No rashes, no jaundice Neurological: No focal deficits. Alert and oriented. - Labs CBC & Chem 7: 01/11/24 03:02 01/11/24 03:02 Assessment and Plan (1) Cyclical vomiting Narrative/Plan: 28-year-old female with multiple hospitalizations for recurrent nausea and vomiting with multiple endoscopic evaluations without any acute findings. Last EGD 12/07/2023 with findings of small hiatal hernia and gastritis. She has had Niesen fundoplication and cholecystectomy done in the past related to the similar symptoms. 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 Continue with symptomatic treatment, diet as tolerated, no plans for endoscopic evaluation. Recommend cannabinoid abstinence. Current Visit: No Status: Acute Code(s): R11.15 - CYCLICAL VOMITING SYNDROME UNRELATED TO MIGRAINE SNOMED Code(s): 79260552 (2) Marijuana abuse Narrative/Plan: Discussed with patient importance of marijuana abstinence. Nausea and vomiting likely cyclic from cannabinoid hyperemesis. Current Visit: No Status: Acute Code(s): F12.10 - CANNABIS ABUSE, UNCOMPLICATED SNOMED Code(s): 44241472 Plan: 1. Continue symptomatic and supportive care 2. Antiemetics as needed. Continue scopolamine patch. Discussed with patient not to touch the patch or her eyes. Wash hands after touching patch. 3. Protonix 40 mg daily for GI prophylaxis 4. Recommend cannabinoid abstinence 5. No plans for endoscopic evaluation patient had recent EGD on 12/07/2023 with findings of gastritis 6. Diet as tolerated 7. Do not recommend continuation of sniffing alcohol pads. Discussed with patient consider essential oils such as heena or peppermint for nausea 8. Patient is cleared from gastroenterology for discharge Thank you for this consultation, we will sign off at this time. Dr. Joanna Osorio I agree with the dictator's note, documented as a scribe by Radha Nelson.
== END 2024-01-11 18:44 | disposition home or self-care (01) ==
LOC: EC 22:11 → 6NMEDSUR 23:32 → 4SSUR 01-09 20:51
PROVIDERS: ADMIT Family Medicine; ATTEND Family Medicine
DX: R11.2 Nausea with vomiting, unspecified (principal); R10.13 Epigastric pain; F12.10 Cannabis abuse, uncomplicated; K21.9 Gastro-esophageal reflux disease without esophagitis; G43.909 Migraine, unspecified, not intractable, without status migrainosus; Z79.899 Other long term (current) drug therapy; Z80.0 Family history of malignant neoplasm of digestive organs; Z90.49 Acquired absence of other specified parts of digestive tract
CPT/HCPCS: 96376 ×3; 96361 ×3; 96372 ×2; 96374; 96375 ×2; 99285; 36415; 80053 ×2; 82150; 83690; 85025 ×2; 81001; 81025; G0378 ×4; J3250 ×2; J2405 ×4; J1171 ×4; J2470 ×3

== ENCOUNTER 2024-02-12 07:26 | Emergency (ER) | payer OTHER ==
--- NOTE | 2024-02-12 07:33 | ED ---
Abdominal Pain HPI - General Chief Complaint: Abdominal Pain Stated Complaint: Nausea,abd pain Time Seen by Provider: 02/12/24 07:33 Source: patient, RN notes reviewed Mode of arrival: ambulatory Limitations: no limitations - History of Present Illness Initial Comments: This is a 28-year-old female with history of hiatal hernia who is presenting to the emergency department chief complaint of epigastric abdominal pain, nausea and vomiting that started earlier today. Patient states that she does have a history of pancreatitis and this pain feels similar as it radiates into her back in a band type sensation. denies hematemesis, coffee-ground emesis, chest pain, shortness of breath, difficulty breathing, urinary or bowel habit changes, fevers or chills. Patient took Zofran earlier today with minimal relief. previous surgical abdominal history of cholecystectomy. denies alcohol use or history of diabetes. - Related Data Home Medications Medication Instructions Recorded Confirmed Famotidine [Pepcid] 20 mg PO BID PRN 05/07/23 01/09/24 HYDROcodone/APAP 5-325MG [Anthony 1 tab PO DAILY PRN 08/14/23 01/09/24 5-325] Previous Rx's Medication Instructions Recorded Ketorolac [Toradol] 10 mg PO Q6HR PRN #15 tab 01/08/24 Ondansetron Odt [Zofran ODT] 8 mg PO Q8HR PRN #30 tab 01/08/24 Promethazine Suppository 25 mg RECTAL QID PRN #12 supp 01/08/24 [Phenergan] Scopolamine 1 mg/72 Hr Patch 1 patch TRANSDERM Q72H 15 Days #5 01/11/24 [TransDerm Scop] patch HYDROcodone/APAP 5-325MG [Anthony 5] 1 each PO Q6HR PRN #12 tab 02/12/24 Ondansetron Odt [Zofran Odt] 4 mg PO Q8HR PRN #10 tab 02/12/24 Allergies Allergy/AdvReac Type Severity Reaction Status Date / Time No Known Allergies Allergy Verified 01/09/24 07:09 Review of Systems ROS Statement: Those systems with pertinent positive or pertinent negative responses have been documented in the HPI. ROS Other: All systems not noted in ROS Statement are negative. Past Medical History Past Medical History: GERD/Reflux Additional Past Medical History / Comment(s): MIGRAINES, BACK PAIN. 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 No other history of STDs. Pancreatitis. History of Any Multi-Drug Resistant Organisms: None Reported Past Surgical History: Cholecystectomy, Hernia Repair Additional Past Surgical History / Comment(s): Hiatal hernia repair. Past Anesthesia/Blood Transfusion Reactions: Motion Sickness Additional Past Anesthesia/Blood Transfusion Reaction / Comment(s): NO ANESTHESIA HX Past Psychological History: Anxiety Smoking Status: Never smoker Past Alcohol Use History: Occasional Past Drug Use History: Marijuana - Past Family History Mother Family Medical History: No Reported History Additional Family Medical History / Comment(s): Maternal grandmother had colon cancer. A maternal great grandmother had breast cancer. Father Family Medical History: Hypertension General Exam Limitations: no limitations General appearance: alert, in no apparent distress ENT exam: Present: normal exam, mucous membranes moist Neck exam: Present: normal inspection. Absent: tenderness, meningismus, lymphadenopathy Respiratory exam: Present: normal lung sounds bilaterally. Absent: respiratory distress, wheezes, rales, rhonchi, stridor Cardiovascular Exam: Present: regular rate, normal rhythm, normal heart sounds. Absent: systolic murmur, diastolic murmur, rubs, gallop, clicks GI/Abdominal exam: Present: soft, tenderness (epigastric), normal bowel sounds. Absent: distended, guarding, rebound, rigid Extremities exam: Present: normal inspection, full ROM, normal capillary refill. Absent: tenderness, pedal edema, joint swelling, calf tenderness Back exam: Present: normal inspection Skin exam: Present: warm, dry, intact, normal color. Absent: rash Course Vital Signs 02/12/24 02/12/24 02/12/24 07:26 09:58 11:35 Temperature 98.5 F 98 F 98 F Pulse Rate 100 87 78 Respiratory 20 20 18 Rate Blood Pressure 126/83 100/71 123/78 O2 Sat by Pulse 98 100 98 Oximetry Medical Decision Making - Medical Decision Making Was pt. sent in by a medical professional or institution (, PA, AREA MECHANIC, urgent care, hospital, or senior living...) When possible be specific @ -No Did you speak to anyone other than the patient for history (EMS, parent, family, police, friend...)? What history was obtained from this source @ -No Did you review nursing and triage notes (agree or disagree)? Why? @ -I reviewed and agree with nursing and triage notes Were old charts reviewed (outside hosp., previous admission, EMS record, old EKG, old radiological studies, urgent care reports/EKG's, senior living records)? Report findings @ -No old charts were reviewed Differential Diagnosis (chest pain, altered mental status, abdominal pain women, abdominal pain men, vaginal bleeding, weakness, fever, dyspnea, syncope, headache, dizziness, GI bleed, back pain, seizure, CVA, palpatations, mental health, musculoskeletal)? @ -Differential Abdominal Pain Women: Appendicitis, Cholecystitis, diverticulosis, ischemic bowel, pancreatitis, hepatitis, UTI, gastroenteritis, AAA, incarcerated hernia, bowel obstruction, constipation, inflammatory bowel, hepatitis, peptic ulcer disease, splenic infarction, perforated viscus, vulvitis, ovarian torsion, PID, kidney stone, placenta abruption, this is not meant to be an all-inclusive list EKG interpreted by me (3pts min.). @ -none X-rays interpreted by me (1pt min.). @ -None done CT interpreted by me (1pt min.). @ -None done U/S interpreted by me (1pt. min.). @ -Ultrasound of the gallbladder unremarkable for acute process. What testing was considered but not performed or refused? (CT, X-rays, U/S, labs)? Why? @ -None What meds were considered but not given or refused? Why? @ -None Did you discuss the management of the patient with other professionals ( professionals i.e. , PA, AREA MECHANIC, lab, RT, psych nurse, elementary school social worker, risk control consultant, teacher, sailing officer, director of casework department)? Give summary @ -No Was smoking cessation discussed for >3mins.? @ -No Was critical care preformed (if so, how long)? @ -No Were there social determinants of health that impacted care today? How? (Homelessness, low income, unemployed, alcoholism, drug addiction, transportation, low edu. Level, literacy, decrease access to med. care, usp, rehab)? @ -No Was there de-escalation of care discussed even if they declined (Discuss DNR or withdrawal of care, Hospice)? DNR status @ -No What co-morbidities impacted this encounter? (DM, HTN, Smoking, COPD, CAD, Cancer, CVA, ARF, Chemo, Hep., AIDS, mental health diagnosis, sleep apnea, morbid obesity)? @ -None Was patient admitted / discharged? Hospital course, mention meds given and route, prescriptions, significant lab abnormalities, going to OR and other pertinent info. @ -discahrged. 28-year-old female with abdominal pain. On my evaluation the patient she is noted to be laying on her side with abdominal pain to palpation epigastric. Patient is provided with pain medication and antiemetics pending laboratory results. She is in agreement this plan. labs remarkable for amylase 333 and lipase 2742, this time patient is provided with additional dose of pain medication will be sent for ultrasound for further evaluation. Ultrasound negative for acute process. Patient was offered admission for pain control for acute pancreatitis however patient is declined this time. She sent a prescription for Zofran and pain medication and instructed to follow a clear liquid diet over the next 24 to 48 hours insulate reintroducing low-fat diet after this. All questions have been answered at bedside and strict return par ameters have been discussed with the patient she is verbalized understanding. Case discussed with Dr. Galvan Undiagnosed new problem with uncertain prognosis? @ -No Drug Therapy requiring intensive monitoring for toxicity (Heparin, Nitro, Insulin, Cardizem)? @ -No Were any procedures done? @ -No Diagnosis/symptom? @ -pancreatitis Acute, or Chronic, or Acute on Chronic? @ -acute Uncomplicated (without systemic symptoms) or Complicated (systemic symptoms)? @ -uncomplicated Side effects of treatment? @ -No Exacerbation, Progression, or Severe Exacerbation? @ -No Poses a threat to life or bodily function? How? (Chest pain, USA, ND, pneumonia, PE, COPD, DKA, ARF, appy, cholecystitis, CVA, Diverticulitis, Homicidal, Suicidal, threat to staff... and all critical care pts) @ -No - Lab Data Result diagrams: 02/12/24 07:57 02/12/24 07:57 Lab Results 02/12/24 02/12/24 02/12/24 Range/Units 07:57 07:57 07:57 WBC 5.5 (3.8-10.6) k/uL RBC 4.52 (3.80-5.40) m/uL Hgb 13.3 (11.4-16.0) gm/dL Hct 39.8 (34.0-46.0) % MCV 88.2 (80.0-100.0) fL MCH 29.4 (25.0-35.0) pg MCHC 33.4 (31.0-37.0) g/dL RDW 12.4 (11.5-15.5) % Plt Count 193 (150-450) k/uL MPV 8.3 Neutrophils % 72 % Lymphocytes % 21 % Monocytes % 3 % Eosinophils % 2 % Basophils % 0 % Neutrophils # 3.9 (1.3-7.7) k/uL Lymphocytes # 1.2 (1.0-4.8) k/uL Monocytes # 0.2 (0-1.0) k/uL Eosinophils # 0.1 (0-0.7) k/uL Basophils # 0.0 (0-0.2) k/uL Sodium 140 (137-145) mmol/L Potassium 4.0 (3.5-5.1) mmol/L Chloride 107 (98-107) mmol/L Carbon Dioxide 24 (22-30) mmol/L Anion Gap 9 mmol/L BUN 11 (7-17) mg/dL Creatinine 0.68 (0.52-1.04) mg/dL Est GFR (CKD-EPI)AfAm >90 (>60 ml/min/1.73 sqM) Est GFR (CKD-EPI)NonAf >90 (>60 ml/min/1.73 sqM) Glucose 114 H (74-99) mg/dL Plasma Lactic Acid Ilya 1.1 (0.7-2.0) mmol/L Calcium 8.7 (8.4-10.2) mg/dL Magnesium 2.0 (1.6-2.3) mg/dL Total Bilirubin 0.2 (0.2-1.3) mg/dL AST 17 (14-36) U/L ALT 10 (4-34) U/L Alkaline Phosphatase 50 (38-126) U/L Total Protein 6.5 (6.3-8.2) g/dL Albumin 4.1 (3.5-5.0) g/dL Amylase 333 H* (30-110) U/L Lipase 2742 H (23-300) U/L Disposition Clinical Impression: Pancreatitis Disposition: HOME SELF-CARE Condition: Stable Instructions (If sedation given, give patient instructions): Pancreatitis (ED) Additional Instructions: Please return to the Emergency Department if symptoms worsen or any other concerns. Take prescribed pain medication and antinausea medication as needed. It is recommended that you follow a clear liquid diet over the next 24 to 48 hours and slowly reintroducing foods after that that are low-fat. Recommend that you follow-up with your primary care provider within the next week for further evaluation as well. Prescriptions: HYDROcodone/APAP 5-325MG [Anthony 5] 1 each PO Q6HR PRN #12 tab PRN Reason: Pain Ondansetron Odt [Zofran Odt] 4 mg PO Q8HR PRN #10 tab PRN Reason: Nausea Is patient prescribed a controlled substance at d/c from ED?: Yes When asked, does pt state using other controlled substances?: No If prescribed controlled substance>3 days was MAPS reviewed?: Prescribed <3 Days Referrals: Terry Rivera MD [Primary Care Provider] - 1-2 days Time of Disposition: 11:03
[2024-02-12] MEDS: ONDANSETRON 4 MG/2 ML VIAL IVP STA (07:58)
[2024-02-12] MEDS: SODIUM CHLORIDE 0.9% 1,000 ML IV STA (07:59)
[2024-02-12] MEDS: HYDROmorphone 0.5 MG/0.5 ML SYRINGE IVP STA (08:00)
[2024-02-12 08:16] LABS: Basophils % (A) 0 %; Eosinophils # (A) 0.1 k/uL (0-0.7); Eosinophils % (A) 2 %; HCT 39.8 % (34.0-46.0); HGB 13.3 gm/dL (11.4-16.0); Lymphocytes # (A) 1.2 k/uL (1.0-4.8); Lymphocytes % (A) 21 %; MCH 29.4 pg (25.0-35.0); MCHC 33.4 g/dL (31.0-37.0); MCV 88.2 fL (80.0-100.0); Mean Platelet Volume 8.3; Monocytes # (A) 0.2 k/uL (0-1.0); Monocytes % (A) 3 %; Neutrophils # (A) 3.9 k/uL (1.3-7.7); Neutrophils % (A) 72 %; Platelet Count 193 k/uL (150-450); RBC 4.52 m/uL (3.80-5.40); RDW 12.4 % (11.5-15.5); WBC 5.5 k/uL (3.8-10.6)
[2024-02-12 08:26] LABS: ALT 10 U/L (4-34); AST 17 U/L (14-36); African American GFR (CKD) >90 (>60 ml/min/1.73 sqM); Albumin 4.1 g/dL (3.5-5.0); Alkaline Phosphatase 50 U/L (38-126); Anion Gap 9 mmol/L; Blood Urea Nitrogen 11 mg/dL (7-17); Calcium 8.7 mg/dL (8.4-10.2); Carbon Dioxide 24 mmol/L (22-30); Chloride 107 mmol/L (98-107); Glucose 114 mg/dL (74-99); Non-African American GFR(CKD) >90 (>60 ml/min/1.73 sqM); Sodium 140 mmol/L (137-145); Total Bilirubin 0.2 mg/dL (0.2-1.3); Total Protein 6.5 g/dL (6.3-8.2)
[2024-02-12 08:51] LABS: Amylase 333 U/L (30-110); Lipase 2742 U/L (23-300)
[2024-02-12] MEDS: HYDROmorphone 1 MG/ML 1 ML SYRINGE IVP STA (09:25)
[2024-02-12 09:59] VITALS: TEMP 98
--- NOTE | 2024-02-12 10:50 | US ---
EXAMINATION TYPE: US gallbladder DATE OF EXAM: 02/12/2024 COMPARISON: NONE CLINICAL INDICATION: Female, 28 years old with history of epigastric ab pain, elevated amylase and li pase; Abnormal labs. GB removed x 2/3 years ago. TECHNIQUE: Grayscale and color Doppler imaging of the right upper quadrant was performed. FINDINGS: EXAM MEASUREMENTS: Liver Length: 16.1 cm CBD: 0.6 cm Right Kidney: 8.9 x 4.5 x 3.7 cm Pancreas: Main pancreatic duct = 1.8 mm Liver: wnl as visualized Gallbladder: Surgically absent Evidence for sonographic Espinosa's sign: neg CBD: wnl Right Kidney: No hydronephrosis or masses seen IMPRESSION: No evidence for acute process. [facility] Charles Hernandez, , 02/12/2024 10:47 AM
[2024-02-12 11:36] VITALS: BP 123/78; PULSE 78; RESP 18
== END 2024-02-12 11:39 | disposition home or self-care (01) ==
LOC: EC 07:26
DX: K85.90 Acute pancreatitis without necrosis or infection, unspecified (principal)
CPT/HCPCS: 36415; 80053; 82150; 83605; 83690; 83735; 85025; 76705; 99284; 96374; 96375; 96376; 96361; J2405; J1171 ×2

== ENCOUNTER 2024-02-13 08:39 | Emergency (ER) | payer OTHER ==
[2024-02-13 08:43] VITALS: TEMP 98.1
--- NOTE | 2024-02-13 08:55 | ED ---
Abdominal Pain HPI - General Chief Complaint: Abdominal Pain Stated Complaint: abd pain Time Seen by Provider: 02/13/24 08:53 Source: patient, RN notes reviewed, old records reviewed Mode of arrival: ambulatory Limitations: no limitations - History of Present Illness Initial Comments: 28-year-old female presenting to the ER with a chief complaint of abdominal pain. Patient was seen here yesterday for similar complaint and diagnosed with pancreatitis. Admission was recommended patient declined and stated she would like to go home. Patient states she was feeling better until 4 AM when she started to have sharp persistent right upper quadrant/epigastric abdominal pain with persistent nausea and vomiting. She denies any radiation of pain. She to ok Zofran without relief. Patient denies any fevers, chills, night sweats, constipation/diarrhea, urinary complaints. No chest pain or shortness of breath - Related Data Home Medications Medication Instructions Recorded Confirmed Famotidine [Pepcid] 20 mg PO BID 05/07/23 02/13/24 HYDROcodone/APAP 5-325MG [[place] 5] 1 tab PO Q6HR PRN 02/13/24 02/13/24 Previous Rx's Medication Instructions Recorded Ondansetron Odt [Zofran ODT] 8 mg PO Q8HR PRN #30 tab 01/08/24 Ondansetron Odt [Zofran Odt] 8 mg PO Q8HR #30 tab 02/13/24 Allergies Allergy/AdvReac Type Severity Reaction Status Date / Time No Known Allergies Allergy Verified 02/13/24 10:36 Review of Systems ROS Statement: Those systems with pertinent positive or pertinent negative responses have been documented in the HPI. ROS Other: All systems not noted in ROS Statement are negative. Past Medical History Past Medical History: GERD/Reflux Additional Past Medical History / Comment(s): MIGRAINES, BACK PAIN. 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 No other history of STDs. Pancreatitis. History of Any Multi-Drug Resistant Organisms: None Reported Past Surgical History: Cholecystectomy, Hernia Repair Additional Past Surgical History / Comment(s): Hiatal hernia repair. Past Anesthesia/Blood Transfusion Reactions: Motion Sickness Additional Past Anesthesia/Blood Transfusion Reaction / Comment(s): NO ANESTHESIA HX Past Psychological History: Anxiety Smoking Status: Never smoker Past Alcohol Use History: Occasional Past Drug Use History: Marijuana - Past Family History Mother Family Medical History: No Reported History Additional Family Medical History / Comment(s): Maternal grandmother had colon cancer. A maternal great grandmother had breast cancer. Father Family Medical History: Hypertension General Exam Limitations: no limitations General appearance: alert, in no apparent distress Respiratory exam: Present: normal lung sounds bilaterally. Absent: respiratory distress, wheezes, rales, rhonchi, stridor Cardiovascular Exam: Present: regular rate, normal rhythm, normal heart sounds. Absent: systolic murmur, diastolic murmur, rubs, gallop, clicks GI/Abdominal exam: Present: soft, tenderness (RUQ/epigastric), normal bowel sounds Neurological exam: Present: alert, oriented X3, CN II-XII intact Skin exam: Present: warm, dry, intact, normal color. Absent: rash Course Vital Signs 02/13/24 02/13/24 02/13/24 08:40 09:05 10:23 Temperature 98.1 F Pulse Rate 47 L 64 69 Respiratory 16 18 18 Rate Blood Pressure 146/75 110/76 O2 Sat by Pulse 99 99 98 Oximetry 02/13/24 10:29 Temperature Pulse Rate 56 L Respiratory 16 Rate Blood Pressure 132/72 O2 Sat by Pulse 98 Oximetry Medical Decision Making - Medical Decision Making Was pt. sent in by a medical professional or institution (, PA, PROPERTY ADJUSTER, urgent care, hospital, or [place] health [place] facility...) When possible be specific @ -No Did you speak to anyone other than the patient for history (EMS, parent, family, police, friend...)? What history was obtained from this source @ -No Did you review nursing and triage notes (agree or disagree)? Why? @ -I reviewed and agree with nursing and triage notes Were old charts reviewed (outside hosp., previous admission, EMS record, old EKG, old radiological studies, urgent care reports/EKG's, [place] [facility] facility records)? Report findings @ -Yes, I reviewed ER visit from 02-12-2024. Patient diagnosed with pancreatitis amylase at that time 333 lipase 2742. Gallbladder ultrasound negative. Admission offered to patient who refused. Patient discharged with Reading and Zofran. Differential Diagnosis (chest pain, altered mental status, abdominal pain women, abdominal pain men, vaginal bleeding, weakness, fever, dyspnea, syncope, headache, dizziness, GI bleed, back pain, seizure, CVA, palpatations, mental health, musculoskeletal)? @ -Differential Abdominal Pain Women: Appendicitis, Cholecystitis, di verticulosis, ischemic bowel, pancreatitis, hepatitis, UTI, gastroenteritis, AAA, incarcerated hernia, bowel obstruction, constipation, inflammatory bowel, hepatitis, peptic ulcer disease, splenic infarction, perforated viscus, vulvitis, ovarian torsion, PID, kidney stone, placenta abruption, this is not meant to be an all-inclusive list EKG interpreted by me (3pts min.). @ -None done X-rays interpreted by me (1pt min.). @ -None done CT interpreted by me (1pt min.). @ -None done U/S interpreted by me (1pt. min.). @ -None done What testing was considered but not performed or refused? (CT, X-rays, U/S, labs)? Why? @ -Imaging deferred as patient had ultrasound completed yesterday. Patient is agreeable. What meds were considered but not given or refused? Why? @ -None Did you discuss the management of the patient with other professionals (professionals i.e. , PA, PROPERTY ADJUSTER, lab, RT, psych nurse, transition social worker, gameroom technician, teacher, juvenile officer, shoe parts caser)? Give summary @ -No Was smoking cessation discussed for >3mins.? @ -No Was critical care preformed (if so, how long)? @ -No Were there social determinants of health that impacted care today? How? (Homelessness, low income, unemployed, alcoholism, drug addiction, transportation, low edu. Level, literacy, decrease access to med. care, group home, rehab)? @ -No Was there de-escalation of care discussed even if they declined (Discuss DNR or withdrawal of care, Hospice)? DNR status @ -No What co-morbidities impacted this encounter? (DM, HTN, Smoking, COPD, CAD, Cancer, CVA, ARF, Chemo, Hep., AIDS, mental health diagnosis, sleep apnea, morbid obesity)? @ -Chronic pancreatitis Was patient admitted / discharged? Hospital course, mention meds given and route, prescriptions, significant lab abnormalities, going to OR and other p ertinent info. @ - Discharged. 28-year-old female presenting to the ER with a chief complaint of abdominal pain and nausea. History and physical exam completed. Vitals stable. Patient in no signs of acute distress but is laying in the position. Abdominal tenderness to right upper quadrant with normal bowel sounds. No rebound or guarding. Laboratory studies obtained unimpressive. Lipase 54, amylase 61. Urine is hemorrhagic as patient is currently on her menstrual cycle. As patient underwent gallbladder ultrasound yesterday imaging was deferred today, patient agreeable. Patient received symptomatic treatment in the ER with IV fluids, Toradol, Dilaudid and Zofran. Upon reevaluation, patient reporting improved pain. No signs of acute distress. Patient stable for discharge at this time. Zofran prescribed. Strict return parameters discussed. Patient discharged in stable condition with follow-up to PCP. Patient verbally expressed understanding and agreement with care plan. Case discussed with ED attending, Dr. Chao. Undiagnosed new problem with uncertain prognosis? @ -No Drug Therapy requiring intensive monitoring for toxicity (Heparin, Nitro, Insulin, Cardizem)? @ -No Were any procedures done? @ -No Diagnosis/symptom? @ -Abdominal pain Acute, or Chronic, or Acute on Chronic? @ -Acute Uncomplicated (without systemic symptoms) or Complicated (systemic symptoms)? @ -Uncomplicated Side effects of treatment? @ -No Exacerbation, Progression, or Severe Exacerbation? @ -No Poses a threat to life or bodily function? How? (Chest pain, [place], [place], pneumonia, PE, COPD, DKA, ARF, appy, cholecystitis, CVA, Diverticulitis, Homicidal, Suicidal, threat to staff... and all critical care pts) @ -No - Lab Data Result diagrams: 02/13/24 09:15 02/13/24 09:15 Lab Results 02/13/24 02/13/24 02/13/24 Range/Units 09:15 09:15 09:15 WBC 9.2 (3.8-10.6) k/uL RBC 4.49 (3.80-5.40) m/uL Hgb 13.0 (11.4-16.0) gm/dL Hct 39.5 (34.0-46.0) % MCV 87.8 (80.0-100.0) fL MCH 29.0 (25.0-35.0) pg MCHC 33.0 (31.0-37.0) g/dL RDW 12.5 (11.5-15.5) % Plt Count 254 (150-450) k/uL MPV 8.2 Neutrophils % 87 % Lymphocytes % 8 % Monocytes % 4 % Eosinophils % 0 % Basophils % 0 % Neutrophils # 8.0 H (1.3-7.7) k/uL Lymphocytes # 0.7 L (1.0-4.8) k/uL Monocytes # 0.4 (0-1.0) k/uL Eosinophils # 0.0 (0-0.7) k/uL Basophils # 0.0 (0-0.2) k/uL Sodium 142 (137-145) mmol/L Potassium 3.3 L (3.5-5.1) mmol/L Chloride 107 (98-107) mmol/L Carbon Dioxide 20 L (22-30) mmol/L Anion Gap 15 mmol/L BUN 9 (7-17) mg/dL Creatinine 0.53 (0.52-1.04) mg/dL Est GFR (CKD-EPI)AfAm >90 (>60 ml/min/1.73 sqM) Est GFR (CKD-EPI)NonAf >90 (>60 ml/min/1.73 sqM) Glucose 138 H (74-99) mg/dL Plasma Lactic Acid Iyla 1.7 (0.7-2.0) mmol/L Calcium 9.4 (8.4-10.2) mg/dL Total Bilirubin 0.6 (0.2-1.3) mg/dL AST 19 (14-36) U/L ALT 15 (4-34) U/L Alkaline Phosphatase 64 (38-126) U/L Total Protein 7.5 (6.3-8.2) g/dL Albumin 4.8 (3.5-5.0) g/dL Amylase 61 (30-110) U/L Lipase 54 (23-300) U/L Urine Color Urine Appearance (Clear) Urine pH (5.0-8.0) Ur Specific [place] (1.001-1.035) Urine Protein (Negative) Urine Glucose (UA) (Negative) Urine Ketones (Negative) Urine Blood (Negative) Urine Nitrite (Negative) Urine Bilirubin (Negative) Urine Urobilinogen (<2.0) mg/dL Ur Leukocyte Esterase (Negative) Urine RBC (0-5) /hpf Urine WBC (0-5) /hpf Ur Squamous Epith Cells (0-4) /hpf Urine Bacteria (None) /hpf Urine Mucus (None) /hpf Urine HCG, Qual (Not Detectd) Urine Opiates Screen (NotDetected) Ur Oxycodone Screen (NotDetected) Urine Methadone Screen (NotDetected) Ur Barbiturates Screen (NotDetected) U Tricyclic Antidepress (NotDetected) Ur Phencyclidine Scrn (NotDetected) Ur Amphetamines Screen (NotDetected) U Methamphetamines Scrn (NotDetected) U Benzodiazepines Scrn (NotDetected) Urine Cocaine Screen (NotDetected) U Marijuana (THC) Screen (NotDetected) 02/13/24 02/13/24 Range/Units 09:30 09:30 WBC (3.8-10.6) k/uL RBC (3.80-5.40) m/uL Hgb (11.4-16.0) gm/dL Hct (34.0-46.0) % MCV (80.0-100.0) fL MCH (25.0-35.0) pg MCHC (31.0-37.0) g/dL RDW (11.5-15.5) % Plt Count (150-450) k/uL MPV Neutrophils % % Lymphocytes % % Monocytes % % Eosinophils % % Basophils % % Neutrophils # (1.3-7.7) k/uL Lymphocytes # (1.0-4.8) k/uL Monocytes # (0-1.0) k/uL Eosinophils # (0-0.7) k/uL Basophils # (0-0.2) k/uL Sodium (137-145) mmol/L Potassium (3.5-5.1) mmol/L Chloride (98-107) mmol/L Carbon Dioxide (22-30) mmol/L Anion Gap mmol/L BUN (7-17) mg/dL Creatinine (0.52-1.04) mg/dL Est GFR (CKD-EPI)AfAm (>60 ml/min/1.73 sqM) Est GFR (CKD-EPI)NonAf (>60 ml/min/1.73 sqM) Glucose (74-99) mg/dL Plasma Lactic Acid Ilya (0.7-2.0) mmol/L Calcium (8.4-10.2) mg/dL Total Bilirubin (0.2-1.3) mg/dL AST (14-36) U/L ALT (4-34) U/L Alkaline Phosphatase (38-126) U/L Total Protein (6.3-8.2) g/dL Albumin (3.5-5.0) g/dL Amylase (30-110) U/L Lipase (23-300) U/L Urine Color Light Red Urine Appearance Cloudy H (Clear) Urine pH 6.0 (5.0-8.0) Ur Specific [place] 1.037 H (1.001-1.035) Urine Protein 2+ H (Negative) Urine Glucose (UA) Trace H (Negative) Urine Ketones 4+ H (Negative) Urine Blood Large H (Negative) Urine Nitrite Negative (Negative) Urine Bilirubin Negative (Negative) Urine Urobilinogen <2.0 (<2.0) mg/dL Ur Leukocyte Esterase Trace H (Negative) Urine RBC >182 H (0-5) /hpf Urine WBC 13 H (0-5) /hpf Ur Squamous Epith Cells 5 H (0-4) /hpf Urine Bacteria Rare H (None) /hpf Urine Mucus Moderate H (None) /hpf Urine HCG, Qual Not Detected (Not Detectd) Urine Opiates Screen Detected H (NotDetected) Ur Oxycodone Screen Not Detected (NotDetected) Urine Methadone Screen Not Detected (NotDetected) Ur Barbiturates Screen Not Detected (NotDetected) U Tricyclic Antidepress Not Detected (NotDetected) Ur Phencyclidine Scrn Not Detected (NotDetected) Ur Amphetamines Screen Not Detected (NotDetected) U Methamphetamines Scrn Not Detected (NotDetected) U Benzodiazepines Scrn Not Detected (NotDetected) Urine Cocaine Screen Not Detected (NotDetected) U Marijuana (THC) Screen Detected H (NotDetected) Disposition Clinical Impression: Abdominal pain Disposition: HOME SELF-CARE Condition: Stable Instructions (If sedation given, give patient instructions): Pancreatitis (ED), Abdominal Pain (ED) Additional Instructions: Continue taking [id number] ibuprofen and Tylenol for pain control. Use Reading sparingly for extreme pain. Follow-up with Dr. Rivera in the next 3 to 5 days. Return to the ER for any new or worsening concerns. Prescriptions: Ondansetron Odt [Zofran Odt] 8 mg PO Q8HR #30 tab Is patient prescribed a controlled substance at d/c from ED?: No Referrals: Terry Rivera MD [Primary Care Provider] - 1-2 days Time of Disposition: 11:08
[2024-02-13] MEDS: SODIUM CHLORIDE 0.9% 1,000 ML IV STA ×2 (09:16→10:32)
[2024-02-13] MEDS: KETOROLAC 15 MG/ML 1 ML VIAL IVP STA (09:17)
[2024-02-13] MEDS: ONDANSETRON 4 MG/2 ML VIAL IVP STA (09:17)
[2024-02-13] MEDS: HYDROmorphone 1 MG/ML 1 ML SYRINGE IVP STA ×2 (09:18→10:27)
[2024-02-13 09:23] LABS: Basophils % (A) 0 %; Eosinophils % (A) 0 %; HCT 39.5 % (34.0-46.0); Lymphocytes # (A) 0.7 k/uL (1.0-4.8); Lymphocytes % (A) 8 %; MCV 87.8 fL (80.0-100.0); Mean Platelet Volume 8.2; Monocytes # (A) 0.4 k/uL (0-1.0); Monocytes % (A) 4 %; Neutrophils % (A) 87 %; Platelet Count 254 k/uL (150-450); RBC 4.49 m/uL (3.80-5.40); RDW 12.5 % (11.5-15.5); WBC 9.2 k/uL (3.8-10.6)
[2024-02-13 09:34] LABS: ALT 15 U/L (4-34); AST 19 U/L (14-36); African American GFR (CKD) >90 (>60 ml/min/1.73 sqM); Albumin 4.8 g/dL (3.5-5.0); Alkaline Phosphatase 64 U/L (38-126); Amylase 61 U/L (30-110); Anion Gap 15 mmol/L; Blood Urea Nitrogen 9 mg/dL (7-17); Calcium 9.4 mg/dL (8.4-10.2); Carbon Dioxide 20 mmol/L (22-30); Chloride 107 mmol/L (98-107); Glucose 138 mg/dL (74-99); Lipase 54 U/L (23-300); Non-African American GFR(CKD) >90 (>60 ml/min/1.73 sqM); Potassium 3.3 mmol/L (3.5-5.1); Sodium 142 mmol/L (137-145); Total Bilirubin 0.6 mg/dL (0.2-1.3); Total Protein 7.5 g/dL (6.3-8.2)
[2024-02-13 10:16] LABS: Appearance,Urine Cloudy (Clear); Bacteria,Urine Rare /hpf; Bilirubin,Urine Negative (Negative); Blood,Urine Large (Negative); Color,Urine Light Red; Glucose,Urine (UA) Trace (Negative); Ketones,Urine 4+ (Negative); Leukocyte Esterase,Urine Trace (Negative); Mucus,Urine Moderate /hpf; Nitrite,Urine Negative (Negative); Protein,Urine 2+ (Negative); RBC,Urine >182 /hpf (0-5); Specific Gravity,Urine 1.037 (1.001-1.035); Squamous Epithelial Cell,Urine 5 /hpf (0-4); Urobilinogen,Urine <2.0 mg/dL (<2.0); WBC,Urine 13 /hpf (0-5)
[2024-02-13 10:23] LABS: Amphetamine Screen,Urine Not Detected (NotDetected); Barbiturate Screen,Urine Not Detected (NotDetected); Benzodiazepines Screen,Urine Not Detected (NotDetected); Cocaine Screen,Urine Not Detected (NotDetected); Methadone Screen, Urine Not Detected (NotDetected); Opiate Screen,Urine Detected (NotDetected); Oxycodone Screen, Urine Not Detected (NotDetected); Phencyclidine Screen,Urine Not Detected (NotDetected); Tricyclic Antidepressant,Urine Not Detected (NotDetected); Urn Cannabinoid Scrn Detected (NotDetected)
[2024-02-13] MEDS: METOCLOPRAMIDE 5 MG/ML 2 ML VIAL IVP STA (10:28)
[2024-02-13 10:30] VITALS: BP 132/72; PULSE 56; RESP 16
== END 2024-02-13 11:46 | disposition home or self-care (01) ==
LOC: EC 08:39
DX: R10.13 Epigastric pain (principal)
CPT/HCPCS: 36415; 80053; 82150; 83605; 83690; 85025; 81001; 81025; 80306; 99284; 96374; 96375 ×2; 96361; J2405; J1171; J1885; 96376

== ENCOUNTER 2024-02-13 21:16 | Observation (INO) | payer OTHER ==
[2024-02-13 22:20] LABS: Basophils % (A) 0 %; Eosinophils # (A) 0.2 k/uL (0-0.7); Eosinophils % (A) 1 %; HCT 37.6 % (34.0-46.0); HGB 12.5 gm/dL (11.4-16.0); Lymphocytes # (A) 1.3 k/uL (1.0-4.8); Lymphocytes % (A) 9 %; MCH 29.1 pg (25.0-35.0); MCHC 33.2 g/dL (31.0-37.0); MCV 87.6 fL (80.0-100.0); Mean Platelet Volume 9.3; Monocytes # (A) 0.5 k/uL (0-1.0); Monocytes % (A) 4 %; Neutrophils # (A) 11.4 k/uL (1.3-7.7); Neutrophils % (A) 85 %; Platelet Count 208 k/uL (150-450); RBC 4.29 m/uL (3.80-5.40); RDW 12.5 % (11.5-15.5); WBC 13.5 k/uL (3.8-10.6)
[2024-02-13] MEDS: METOCLOPRAMIDE 5 MG/ML 2 ML VIAL IVP STA (22:27)
[2024-02-13] MEDS: KETOROLAC 15 MG/ML 1 ML VIAL IVP STA (22:27)
[2024-02-13] MEDS: SODIUM CHLORIDE 0.9% 2,000 ML IV STA (22:28)
[2024-02-13 22:32] LABS: ALT 13 U/L (4-34); AST 20 U/L (14-36); African American GFR (CKD) >90 (>60 ml/min/1.73 sqM); Albumin 4.3 g/dL (3.5-5.0); Alkaline Phosphatase 50 U/L (38-126); Amylase 280 U/L (30-110); Anion Gap 10 mmol/L; Blood Urea Nitrogen 7 mg/dL (7-17); Calcium 8.6 mg/dL (8.4-10.2); Carbon Dioxide 20 mmol/L (22-30); Chloride 107 mmol/L (98-107); Glucose 100 mg/dL (74-99); Lipase 1480 U/L (23-300); Non-African American GFR(CKD) >90 (>60 ml/min/1.73 sqM); Potassium 3.2 mmol/L (3.5-5.1); Sodium 137 mmol/L (137-145); Total Bilirubin 0.7 mg/dL (0.2-1.3); Total Protein 6.7 g/dL (6.3-8.2)
[2024-02-13] MEDS: ONDANSETRON 4 MG/2 ML VIAL IVP STA (22:34)
[2024-02-13] MEDS: HYDROmorphone 1 MG/ML 1 ML SYRINGE IVP STA (22:36)
[2024-02-13] MEDS ORDERED: Potassium Replacement Protocol 1 EACH MISC MISCELLANE PRN (22:44)
--- NOTE | 2024-02-13 22:56 | ED ---
Abdominal Pain HPI - General Chief Complaint: Abdominal Pain Stated Complaint: Abd Pain,Vomiting-revisit Time Seen by Provider: 02/13/24 21:34 Source: patient Mode of arrival: ambulatory Limitations: no limitations - History of Present Illness Initial Comments: 28-year-old female with history of pancreatitis, GERD, cholecystectomy, hiatal hernia repair presenting with chief complaint of nausea vomiting abdominal pain. Patient has been seen here 2 other times over the last 2 days for the same complaint. She has been admitted on multiple occasions for intractable nausea vomiting and/or pancreatitis. On 02/11 her lipase was 2742, she was offered admission which she declined. Pain is located in the epigastric region. No hematic emesis. No hematochezia. No urinary symptoms. No fever. No chest pain or difficulty breathing. - Related Data Home Medications Medication Instructions Recorded Confirmed Famotidine [Pepcid] 20 mg PO BID 05/07/23 02/14/24 HYDROcodone/APAP 5-325MG [[place] 1 tab PO Q6H PRN 02/13/24 02/14/24 5-325] Previous Rx's Medication Instructions Recorded Ondansetron Odt [Zofran ODT] 8 mg PO Q8HR #30 tab 02/13/24 Allergies Allergy/AdvReac Type Severity Reaction Status Date / Time No Known Allergies Allergy Verified 02/14/24 07:14 Review of Systems ROS Statement: Those systems with pertinent positive or pertinent negative responses have been documented in the HPI. ROS Other: All systems not noted in ROS Statement are negative. Past Medical History Past Medical History: GERD/Reflux Additional Past Medical History / Comment(s): MIGRAINES, BACK PAIN. 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 No other history of STDs. Pancreatitis. History of Any Multi-Drug Resistant Organisms: None Reported Past Surgical History: Cholecystectomy, Hernia Repair Additional Past Surgical History / Comment(s): Hiatal hernia repair. Past Anesthesia/Blood Transfusion Reactions: Motion Sickness Additional Past Anesthesia/Blood Transfusion Reaction / Comment(s): NO ANESTHESIA HX Past Psychological History: Anxiety Smoking Status: Never smoker Past Alcohol Use History: Occasional Past Drug Use History: Marijuana - Past Family History Mother Family Medical History: No Reported History Additional Family Medical History / Comment(s): Maternal grandmother had colon cancer. A maternal great grandmother had breast cancer. Father Family Medical History: Hypertension General Exam Limitations: no limitations General appearance: alert, in no apparent distress Head exam: Present: atraumatic, normocephalic, normal inspection Eye exam: Present: normal appearance, EOMI Neck exam: Present: normal inspection. Absent: meningismus Respiratory exam: Present: normal lung sounds bilaterally. Absent: respiratory distress, wheezes, rales, rhonchi, stridor Cardiovascular Exam: Present: regular rate, normal rhythm, normal heart sounds. Absent: systolic murmur, diastolic murmur, rubs, gallop, clicks GI/Abdominal exam: Present: soft, tenderness. Absent: distended, guarding, rebound, rigid Neurological exam: Present: alert, oriented X3 Psychiatric exam: Present: normal affect, normal mood Skin exam: Present: warm, dry Course Vital Signs 02/13/24 02/13/24 02/13/24 21:25 22:35 23:36 Temperature 98 F 99.2 F Pulse Rate 62 85 76 Respiratory 18 18 17 Rate Blood Pressure 156/95 142/88 132/82 O2 Sat by Pulse 100 99 100 Oximetry Medical Decision Making - Medical Decision Making Was pt. sent in by a medical professional or institution (, PA, ENROLLMENT MANAGEMENT MANAGER, urgent care, hospital, or longterm...) When possible be specific @ -No Did you speak to anyone other than the patient for history (EMS, parent, family, police, friend...)? What history was obtained from this source @ -No Did you review nursing and triage notes (agree or disagree)? Why? @ -I reviewed and agree with nursing and triage notes Were old charts reviewed (outside hosp., previous admission, EMS record, old EKG, old radiological studies, urgent care reports/EKG's, longterm records)? Report findings @ -Reviewed last 2 visits Differential Diagnosis (chest pain, altered mental status, abdominal pain women, abdominal pain men, vaginal bleeding, weakness, fever, dyspnea, syncope, headache, dizziness, GI bleed, back pain, seizure, CVA, palpatations, mental health, musculoskeletal)? @ -[facility] Differential Abdominal Pain Women: Appendicitis, Cholecystitis, diverticulosis, ischemic bowel, pancreatitis, hepatitis, UTI, gastroenteritis, AAA, incarcerated hernia, bowel obstruction, constipation, inflammatory bowel, hepatitis, peptic ulcer disease, splenic infarction, perforated viscus, vulvitis, ovarian torsion, PID, kidney stone, placenta abruption... This is not meant to be an all-inclusive list EKG interpreted by me (3pts min.). @ -As above X-rays interpreted by me (1pt min.). @ -None done CT interpreted by me (1pt min.). @ -None done U/S interpreted by me (1pt. min.). @ -None done What testing was considered but not performed or refused? (CT, X-rays, U/S, labs)? Why? @ -None What meds were considered but not given or refused? Why? @ -None Did you discuss the management of the patient with other professionals (professionals i.e. DrSimi, PA, ENROLLMENT MANAGEMENT MANAGER, lab, RT, psych nurse, clinical social worker, cold rolling coordinator, teacher, customer service officer, director of casework services)? Give summary @ -I spoke with Dr. Rivera who accepts admission Was smoking cessation discussed for >3mins.? @ -No Was critical care preformed (if so, how long)? @ -No Were there social determinants of health that impacted care today? How? (Homelessness, low income, unemployed, alcoholism, drug addiction, transpor tation, low edu. Level, literacy, decrease access to med. care, senior living, rehab)? @ -No Was there de-escalation of care discussed even if they declined (Discuss DNR or withdrawal of care, Hospice)? DNR status @ -No What co-morbidities impacted this encounter? (DM, HTN, Smoking, COPD, CAD, Cancer, CVA, ARF, Chemo, Hep., AIDS, mental health diagnosis, sleep apnea, morbid obesity)? @ -None Was patient admitted / discharged? Hospital course, mention meds given and route, prescriptions, significant lab abnormalities, going to OR and other pertinent info. @ -28-year-old female presenting with chief complaint of intractable nausea vomiting and abdominal pain. Was seen here twice over the past 2 days. White count 13.5. Potassium 3.2, patient is receiving IV replacement. Lipase 1480 amylase 280, patient is receiving analgesia, antiemetics, and IV fluids. She will be admitted for pancreatitis. She is agreeable with this plan. I discussed this case with my attending Dr. Mandel Undiagnosed new problem with uncertain prognosis? @ -No Drug Therapy requiring intensive monitoring for toxicity (Heparin, Nitro, Insulin, Cardizem)? @ -No Were any procedures done? @ -No Diagnosis/symptom? @ -pancreatitis Acute, or Chronic, or Acute on Chronic? @ -Acute on chronic Uncomplicated (without systemic symptoms) or Complicated (systemic symptoms)? @ -Complicated Side effects of treatment? @ -No Exacerbation, Progression, or Severe Exacerbation? @ -No Poses a threat to life or bodily function? How? (Chest pain, [place], [place], pneumonia, PE, COPD, DKA, ARF, appy, cholecystitis, CVA, Diverticulitis, Homicidal, Suicidal, threat to staff... and all critical care pts) @ -Yes - Lab Data Result diagrams: 02/15/24 04:23 02/15/24 04:23 Lab Results 02/13/24 02/13/24 02/13/24 Range/Units 22:03 22:03 22:03 WBC 13.5 H (3.8-10.6) k/uL RBC 4.29 (3.80-5.40) m/uL Hgb 12.5 (11.4-16.0) gm/dL Hct 37.6 (34.0-46.0) % MCV 87.6 (80.0-100.0) fL MCH 29.1 (25.0-35.0) pg MCHC 33.2 (31.0-37.0) g/dL RDW 12.5 (11.5-15.5) % Plt Count 208 (150-450) k/uL MPV 9.3 Neutrophils % 85 % Lymphocytes % 9 % Monocytes % 4 % Eosinophils % 1 % Basophils % 0 % Neutrophils # 11.4 H (1.3-7.7) k/uL Lymphocytes # 1.3 (1.0-4.8) k/uL Monocytes # 0.5 (0-1.0) k/uL Eosinophils # 0.2 (0-0.7) k/uL Basophils # 0.0 (0-0.2) k/uL Sodium 137 (137-145) mmol/L Potassium 3.2 L (3.5-5.1) mmol/L Chloride 107 (98-107) mmol/L Carbon Dioxide 20 L (22-30) mmol/L Anion Gap 10 mmol/L BUN 7 (7-17) mg/dL Creatinine 0.47 L (0.52-1.04) mg/dL Est GFR (CKD-EPI)AfAm >90 (>60 ml/min/1.73 sqM) Est GFR (CKD-EPI)NonAf >90 (>60 ml/min/1.73 sqM) Glucose 100 H (74-99) mg/dL Plasma Lactic Acid Ilya 1.3 (0.7-2.0) mmol/L Calcium 8.6 (8.4-10.2) mg/dL Total Bilirubin 0.7 (0.2-1.3) mg/dL AST 20 (14-36) U/L ALT 13 (4-34) U/L Alkaline Phosphatase 50 (38-126) U/L Total Protein 6.7 (6.3-8.2) g/dL Albumin 4.3 (3.5-5.0) g/dL Amylase 280 H (30-110) U/L Lipase 1480 H (23-300) U/L Disposition Clinical Impression: Pancreatitis Disposition: ADMITTED IP TO THIS [facility] Condition: Serious Time of Disposition: 22:56
[2024-02-13] MEDS ORDERED: NALOXONE 0.4 MG/ML 1 ML VIAL IV PRN (23:00)
[2024-02-13] MEDS: POTASSIUM CHLORIDE 10 MEQ in WATER FOR INJECTION 1 100ML.BAG IVPB SCH (23:01)
[2024-02-14] MEDS: SODIUM CHLORIDE 0.9% 1,000 ML IV SCH (00:03)
[2024-02-14] MEDS: HYDROmorphone 1 MG/ML 1 ML SYRINGE IVP PRN (00:27)
[2024-02-14] MEDS: ONDANSETRON 4 MG/2 ML VIAL IVP PRN (00:28)
[2024-02-14] MEDS: KETOROLAC 15 MG/ML 1 ML VIAL IVP PRN (04:31)
[2024-02-14 05:20] LABS: African American GFR (CKD) >90 (>60 ml/min/1.73 sqM); Anion Gap 6 mmol/L; Blood Urea Nitrogen 4 mg/dL (7-17); Calcium 7.6 mg/dL (8.4-10.2); Carbon Dioxide 20 mmol/L (22-30); Chloride 110 mmol/L (98-107); Glucose 95 mg/dL (74-99); Non-African American GFR(CKD) >90 (>60 ml/min/1.73 sqM); Potassium 3.6 mmol/L (3.5-5.1); Sodium 136 mmol/L (137-145)
[2024-02-14] MEDS: METOCLOPRAMIDE 5 MG/ML 2 ML VIAL IVP SCH (06:27)
[2024-02-14] MEDS ORDERED: Potassium Replacement Protocol 1 EACH MISC MISCELLANE PRN (11:19)
[2024-02-14] MEDS: POTASSIUM CHLORIDE ER 20 MEQ TAB.ER PO SCH (13:31)
--- NOTE | 2024-02-14 13:42 | P.GSCN ---
History of Present Illness Consult date: 02/14/24 History of present illness: CHIEF COMPLAINT: Epigastric abdominal pain HISTORY OF PRESENT ILLNESS: This is a 28-year-old female who presented with epigastric abdominal pain that started Monday morning at 5 AM. She initially came into the ER 2 days ago and declined admission but came back due to uncontrolled epigastric pain. Patient reports that it did wake her out of sleep. She has been having nausea and vomiting. She has had prior episodes of pancreatitis. She does have a history of a cholecystectomy. Denies any alcohol use. Reports last bowel movement was on Monday. Lipase was elevated at 1480. Patient seen and examined with Dr. Yusuf PAST MEDICAL HISTORY: GERD, pancreatitis PAST SURGICAL HISTORY: Cholecystectomy and hiatal hernia repair MEDICATIONS: See below ALLERGIES: See below SOCIAL HISTORY: No illicit drug use. Marijuana use REVIEW OF SYSTEMS: CONSTITUTIONAL: Denies fever or chills. HEENT: Denies blurred vision, vision changes, or eye pain. Denies hemoptysis CARDIOVASCULAR: Denies chest pain or pressure. RESPIRATORY: No shortness of breath. GASTROINTESTINAL: See HPI for pertinent findings HEMATOLOGIC: Denies bleeding disorders. GENITOURINARY: Denies any blood in urine or increased urinary frequency. SKIN: Denies pruitis. Denies rash. PHYSICAL EXAM: VITAL SIGNS: Reviewed GENERAL: Well-developed in no acute distress. HEENT: No sclera icterus. Extraocular movements grossly intact. Moist buccal mucosa. Head is atraumatic, normocephalic. No nasal drainage. ABDOMEN: Soft. Nondistended. Epigastric tenderness NEUROLOGIC: Alert and oriented. Cranial nerves II through XII grossly intact. LABORATORY DATA: WBC is 13.5 Hgb 12.5 platelets 208 Sodium 136 potassium 3.6 creatinine 0.45 Lipase 1480 IMAGING: Gallbladder ultrasound on 02/12/2024 surgically absent. No acute process. ASSESSMENT: 1. Acute pancreatitis 2. History of cholecystectomy PLAN: -Keep patient n.p.o. -Continue IV fluids -Repeat labs in a.m. -No surgical intervention planned -Recommend follow-up with GI service outpatient regarding pancreatitis Physician Salt Cutter note has been reviewed by physician. Signing provider agrees with the documented findings, assessment, and plan of care. Past Medical History Past Medical History: GERD/Reflux Additional Past Medical History / Comment(s): MIGRAINES, BACK PAIN. 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 No other history of STDs. Pancreatitis. History of Any Multi-Drug Resistant Organisms: None Reported Past Surgical History: Cholecystectomy, Hernia Repair Additional Past Surgical History / Comment(s): Hiatal hernia repair. Past Anesthesia/Blood Transfusion Reactions: Motion Sickness Additional Past Anesthesia/Blood Transfusion Reaction / Comm: NO ANESTHESIA HX Past Psychological History: Anxiety Smoking Status: Never smoker Past Alcohol Use History: Occasional Additional Past Alcohol Use History / Comment(s): QUIT SMOKING AT 21 YRS OLD, STARTED SMOKING AGE 15, SMOKED 1/2 PPD OR LESS. Past Drug Use History: Marijuana Additional Drug Use History / Comment(s): DAILY MARIJANA USE. - Past Family History Mother Family Medical History: No Reported History Additional Family Medical History / Comment(s): Maternal grandmother had colon cancer. A maternal great grandmother had breast cancer. Father Family Medical History: Hypertension Medications and Allergies Home Medications Medication Instructions Recorded Confirmed Type Famotidine [Pepcid] 20 mg PO BID 05/07/23 02/14/24 History HYDROcodone/APAP 5-325MG [[place] 5] 1 tab PO Q6H PRN 02/13/24 02/14/24 History Ondansetron Odt [Zofran Odt] 8 mg PO Q8HR #30 tab 02/13/24 02/14/24 Rx Allergies Allergy/AdvReac Type Severity Reaction Status Date / Time No Known Allergies Allergy Verified 02/14/24 07:14 Surgical - Exam Vital Signs Temp Pulse Resp BP Pulse Ox 98 F 62 18 156/95 100 02/13/24 21:25 02/13/24 21:25 02/13/24 21:25 02/13/24 21:25 02/13/24 21:25 Results - Labs 02/13/24 22:03 02/14/24 04:10 Abnormal Lab Results - Last 24 Hours (Table) 02/13/24 02/13/24 02/14/24 Range/Units 22:03 22:03 04:10 WBC 13.5 H (3.8-10.6) k/uL Neutrophils # 11.4 H (1.3-7.7) k/uL Sodium 136 L (137-145) mmol/L Potassium 3.2 L (3.5-5.1) mmol/L Chloride 110 H (98-107) mmol/L Carbon Dioxide 20 L 20 L (22-30) mmol/L BUN 4 L (7-17) mg/dL Creatinine 0.47 L 0.45 L (0.52-1.04) mg/dL Glucose 100 H (74-99) mg/dL Calcium 7.6 L (8.4-10.2) mg/dL Amylase 280 H (30-110) U/L Lipase 1480 H (23-300) U/L Diabetes panel 02/13/24 02/14/24 Range/Units 22:03 04:10 Sodium 137 136 L (137-145) mmol/L Potassium 3.2 L 3.6 (3.5-5.1) mmol/L Chloride 107 110 H (98-107) mmol/L Carbon Dioxide 20 L 20 L (22-30) mmol/L BUN 7 4 L (7-17) mg/dL Creatinine 0.47 L 0.45 L (0.52-1.04) mg/dL Glucose 100 H 95 (74-99) mg/dL Calcium 8.6 7.6 L (8.4-10.2) mg/dL AST 20 (14-36) U/L ALT 13 (4-34) U/L Alkaline Phosphatase 50 (38-126) U/L Total Protein 6.7 (6.3-8.2) g/dL Albumin 4.3 (3.5-5.0) g/dL Calcium panel 02/13/24 02/14/24 Range/Units 22:03 04:10 Calcium 8.6 7.6 L (8.4-10.2) mg/dL Albumin 4.3 (3.5-5.0) g/dL Pituitary panel 02/13/24 02/14/24 Range/Units 22:03 04:10 Sodium 137 136 L (137-145) mmol/L Potassium 3.2 L 3.6 (3.5-5.1) mmol/L Chloride 107 110 H (98-107) mmol/L Carbon Dioxide 20 L 20 L (22-30) mmol/L BUN 7 4 L (7-17) mg/dL Creatinine 0.47 L 0.45 L (0.52-1.04) mg/dL Glucose 100 H 95 (74-99) mg/dL Calcium 8.6 7.6 L (8.4-10.2) mg/dL Adrenal panel 02/13/24 02/14/24 Range/Units 22:03 04:10 Sodium 137 136 L (137-145) mmol/L Potassium 3.2 L 3.6 (3.5-5.1) mmol/L Chloride 107 110 H (98-107) mmol/L Carbon Dioxide 20 L 20 L (22-30) mmol/L BUN 7 4 L (7-17) mg/dL Creatinine 0.47 L 0.45 L (0.52-1.04) mg/dL Glucose 100 H 95 (74-99) mg/dL Calcium 8.6 7.6 L (8.4-10.2) mg/dL Total Bilirubin 0.7 (0.2-1.3) mg/dL AST 20 (14-36) U/L ALT 13 (4-34) U/L Alkaline Phosphatase 50 (38-126) U/L Total Protein 6.7 (6.3-8.2) g/dL Albumin 4.3 (3.5-5.0) g/dL
--- NOTE | 2024-02-15 01:21 | HP ---
HISTORY AND PHYSICAL HISTORY OF PRESENT ILLNESS: A white female came into the hospital for acute on chronic pancreatitis with a lipase of 1400, nausea, and vomiting, epigastric pain She had prior history of pancreatitis with cholecystectomy. Denies any alcohol. She has to follow up with me on Monday. Lipase 1480. PAST MEDICAL HISTORY: GERD, pancreatitis, marijuana use. PAST SURGICAL HISTORY: Cholecystectomy, hiatal hernia repair. MEDICATIONS: See list. ALLERGIES: See list. SOCIAL HISTORY: No drug use. Does use marijuana. REVIEW OF SYSTEMS: 14-point review of systems otherwise negative except for weakness, nausea, and vomiting. PHYSICAL EXAMINATION: VITAL SIGNS: Stable, afebrile. CARDIOVASCULAR: S1, S2. LUNGS: Transmitted upper sounds. GI: Soft. HEMATOLOGY: Negative Homans. PSYCH: Fair mood and affect. NEUROLOGIC: Alert and oriented x3. LABORATORY DATA: White count is 13.5, hemoglobin is 12.5, platelets 208. Sodium 135, potassium 3.6, creatinine 0.45 with lipase 1480. Gallbladder is absent. She has acute pancreatitis. History of cholecystectomy. N.p.o. IV fluids. Labs. Possible to get GI outpatient for pancreatitis, . Continue on current treatments, nicotine patch etc. Prognosis guarded. Ambulate as tolerated. Surgical history, see old chart. MMODL / IJN: [id number] /
[2024-02-15 07:49] VITALS: RESP 15
[2024-02-15 08:43] LABS: Basophils # (A) 0.03 X 10*3/uL (0.00-0.10); Basophils % (A) 0.4 %; Eosinophils # (A) 0.04 X 10*3/uL (0.04-0.35); Eosinophils % (A) 0.6 %; HCT 34.1 % (37.2-46.3); HGB 11.5 g/dL (12.0-15.0); Lymphocytes # (A) 1.71 X 10*3/uL (0.90-5.00); Lymphocytes % (A) 24.3 %; MCH 28.9 pg (27.0-32.0); MCHC 33.7 g/dL (32.0-37.0); MCV 85.7 FL (80.0-97.0); Mean Platelet Volume 11.7 FL (9.5-12.2); Monocytes # (A) 0.54 X 10*3/uL (0.20-1.00); Monocytes % (A) 7.7 %; NRBC Per 100 WBC 0 X 10*3/uL (0.00-0.01); Neutrophils % (A) 66.6 %; Platelet Count 174 X 10*3/uL (140-440); RBC 3.98 X 10*6/uL (4.10-5.20); WBC 7.05 X 10*3/uL (4.50-10.00)
[2024-02-15 08:56] LABS: Lipase 206 U/L (14-63)
[2024-02-15 08:57] LABS: Carbon Dioxide 20.7 mmol/L (21.6-31.8); Chloride 106 mmol/L (96-109); Glucose 68 mg/dL (70-110); Potassium 3.1 mmol/L (3.5-5.5); Sodium 139 mmol/L (135-145)
--- NOTE | 2024-02-15 14:07 | P.PN ---
Subjective Progress Note Date: 02/15/24 SURGICAL PROGRESS NOTE CHIEF COMPLAINT: Pancreatitis HISTORY OF PRESENT ILLNESS: Patient reports that her abdominal pain is improving. She is less tender in the epigastric area. Denies any nausea or vom iting. Afebrile. WBC is down from 13-7 Hgb 11.5 potassium is 3.1 and lipase is down from 1004 and 80-206 PHYSICAL EXAM: VITAL SIGNS: Reviewed. GENERAL: Well-developed in no acute distress. ABDOMEN: Soft. Nondistended. Mild epigastric tenderness NEUROLOGIC: Alert and oriented. Cranial nerves II through XII grossly intact. ASSESSMENT: 1. Pancreatitis 2. History of cholecystectomy 3. Hypokalemia PLAN: -Advance diet to clear liquids for lunch and a full liquids for dinner -Repeat lipase in a.m. -Replace potassium -Continue IV fluids Physician Hand Cutter note has been reviewed by physician. Signing provider agrees with the documented findings, assessment, and plan of care. Objective - Vital Signs Vital signs: Vital Signs Temp 98.2 F 02/15/24 07:00 Pulse 57 L 02/15/24 07:00 Resp 15 02/15/24 07:00 BP 104/57 02/15/24 07:00 Pulse Ox 98 02/15/24 07:00 FiO2 Intake & Output 02/14/24 02/15/24 02/15/24 18:59 06:59 18:59 Intake Total 0 118 Balance 0 118 Intake: Oral 0 118 Other: Voiding Method Toilet Toilet # Voids 2 3 - Labs CBC & Chem 7: 02/15/24 04:23 02/15/24 04:23 Labs: Abnormal Lab Results - Last 24 Hours (Table) 02/15/24 02/15/24 Range/Units 04:23 04:23 RBC 3.98 L (4.10-5.20) X 10*6/uL Hgb 11.5 L (12.0-15.0) g/dL Hct 34.1 L (37.2-46.3) % Potassium 3.1 L (3.5-5.5) mmol/L Carbon Dioxide 20.7 L (21.6-31.8) mmol/L Anion Gap 12.30 H (4.00-12.00) mmol/L BUN 5.0 L (9.0-27.0) mg/dL Creatinine 0.5 L (0.6-1.5) mg/dL BUN/Creatinine Ratio 10.00 L (12.00-20.00) Ratio Glucose 68 L (70-110) mg/dL Calcium 8.0 L (8.7-10.3) mg/dL Lipase 206 H (14-63) U/L
[2024-02-15] MEDS: POTASSIUM CHLORIDE ER 20 MEQ TAB.ER PO STA (14:26)
[2024-02-15 14:57] VITALS: BP 106/60; PULSE 63
[2024-02-15 18:28] VITALS: TEMP 99.1
--- NOTE | 2024-02-15 18:51 | CT ---
EXAMINATION TYPE: CT chest wo con DATE OF EXAM: 02/15/2024 6:40 PM COMPARISON: No recent studies. CLINICAL INDICATION: Female, 28 years old with history of cap; PHH, pneumonia TECHNIQUE: Multiple axial images were obtained through the chest. Sagittal and coronal reformats were created for review. MIP was performed on a separate workstation. Contrast used: mL of (None if empty) Oral contrast used: (None if empty) CT DLP: 176.6 mGycm, Automated exposure control for dose reduction was used. FINDINGS: LUNGS/ PLEURA: No focal consolidation, pneumothorax or pleural effusion. AIRWAY: Patent and unremarkable. HEART: Size within normal limits. MEDIASTINUM: No gross evidence of adenopathy. Moderate hiatal hernia. VASCULATURE: No aortic aneurysm. MUSCULOSKELETAL: No acute osseous abnormalities SOFT TISSUES/LYMPH NODES: Unremarkable. LOWER NECK: No significant findings. UPPER ABDOMEN: No significant findings. IMPRESSION: 1. No evidence for pneumonia. 2. Moderate hiatal hernia. [facility], , 02/15/2024 6:48 PM
--- NOTE | 2024-02-16 06:16 | DS ---
DISCHARGE SUMMARY SUBJECTIVE: A white female came in with cough, congestion, viral infection for a few days prior to admission, came in with acute on chronic pancreatitis. Her breathing improved. Her cough improved. Her pancreatitis improved in 1 night with pain control and fluids and bowel rest. The patient has had her gallbladder removed before, has not been drinking. She was stabilized, sent home in stable condition. CAT scan showed moderate hiatal hernia. She is on PPIs at home for acid reflux. Continue current treatments. Condition stable. Prognosis guarded. Ambulate as tolerated. Follow up in my office in a week. MEDICATIONS: 1. Pepcid 20 b.i.d. 2. [place] 5/325 q.6 hours p.r.n. for back pain. 3. Zofran p.r.n. CONDITION: Stable. Prognosis guarded. MMODL / IJN: [id number] /
== END 2024-02-15 18:58 | disposition home or self-care (01) ==
LOC: EC 21:16 → 6NMEDSUR 23:01
PROVIDERS: ADMIT Family Medicine; ATTEND Family Medicine
DX: K85.90 Acute pancreatitis without necrosis or infection, unspecified (principal); K21.9 Gastro-esophageal reflux disease without esophagitis; K44.9 Diaphragmatic hernia without obstruction or gangrene; E87.6 Hypokalemia; B34.9 Viral infection, unspecified; R05.9 Cough, unspecified; F41.9 Anxiety disorder, unspecified; M54.9 Dorsalgia, unspecified; Z79.899 Other long term (current) drug therapy; Z87.891 Personal history of nicotine dependence; Z90.49 Acquired absence of other specified parts of digestive tract
CPT/HCPCS: 96376 ×2; 96366; 96375 ×2; 96361; 96365; 99284; 36415; 80053; 80048 ×2; 82150; 83605; 83690 ×2; 85025 ×2; 71250; G0378 ×6; J2765; J2405 ×3; J1171 ×3; J3480 ×2; J1885 ×2

== ENCOUNTER 2024-03-19 06:21 | Observation (INO) | payer OTHER ==
--- NOTE | 2024-03-19 06:54 | ED ---
Abdominal Pain HPI - General Chief Complaint: Abdominal Pain Stated Complaint: ABD Pain Time Seen by Provider: 03/19/24 06:39 Source: patient, RN notes reviewed Mode of arrival: ambulatory Limitations: no limitations - History of Present Illness Initial Comments: 28-year-old female presents emerged department complaint of nausea vomiting. Discharged around 2:30 AM but this is a recurrent chronic issue for this patient she has been advised CT scan marijuana in the past but continues to use she has a history of pancreatitis when she had a cholecystectomy. Patient denies any fevers or chills, chest pain shortness of breath. She has had no hematemesis or cough and emesis no melanotic stools. - Related Data Home Medications Medication Instructions Recorded Confirmed Famotidine [Pepcid] 20 mg PO BID 05/07/23 02/14/24 HYDROcodone/APAP 5-325MG [[place] 1 tab PO Q6H PRN 02/13/24 02/14/24 5-325] Previous Rx's Medication Instructions Recorded Ondansetron Odt [Zofran ODT] 8 mg PO Q8HR #30 tab 02/13/24 Allergies Allergy/AdvReac Type Severity Reaction Status Date / Time No Known Allergies Allergy Verified 03/19/24 06:32 Review of Systems ROS Statement: Those systems with pertinent positive or pertinent negative responses have been documented in the HPI. ROS Other: All systems not noted in ROS Statement are negative. Past Medical History Past Medical History: GERD/Reflux Additional Past Medical History / Comment(s): MIGRAINES, BACK PAIN. 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 No other history of STDs. Pancreatitis. History of Any Multi-Drug Resistant Organisms: None Reported Past Surgical History: Cholecystectomy, Hernia Repair Additional Past Surgical History / Comment(s): Hiatal hernia repair. Past Anesthesia/Blood Transfusion Reactions: Motion Sickness Additional Past Anesthesia/Blood Transfusion Reaction / Comment(s): NO ANESTHESIA HX Past Psychological History: Anxiety Smoking Status: Never smoker Past Alcohol Use History: Occasional Past Drug Use History: Marijuana - Past Family History Mother Family Medical History: No Reported History Additional Family Medical History / Comment(s): Maternal grandmother had colon cancer. A maternal great grandmother had breast cancer. Father Family Medical History: Hypertension General Exam Limitations: no limitations General appearance: alert, in no apparent distress Head exam: Present: atraumatic, normocephalic, normal inspection Eye exam: Present: normal appearance, PERRL, EOMI. Absent: scleral icterus, conjunctival injection, periorbital swelling ENT exam: Present: normal exam, mucous membranes moist Neck exam: Present: normal inspection, full ROM. Absent: tenderness, meningismus, lymphadenopathy Respiratory exam: Present: normal lung sounds bilaterally. Absent: respiratory distress, wheezes, rales, rhonchi, stridor Cardiovascular Exam: Present: regular rate, normal rhythm, normal heart sounds. Absent: systolic murmur, diastolic murmur, rubs, gallop, clicks GI/Abdominal exam: Present: soft, tenderness (Mild diffuse), normal bowel sounds. Absent: distended, guarding, rebound, rigid Back exam: Absent: CVA tenderness (R), CVA tenderness (L) Neurological exam: Present: alert, oriented X3 Skin exam: Present: warm, dry, intact, normal color. Absent: rash Course Vital Signs 03/19/24 06:30 Temperature 98.0 F Pulse Rate 89 Respiratory 18 Rate Blood Pressure 152/112 O2 Sat by Pulse 99 Oximetry Medical Decision Making - Medical Decision Making Was pt. sent in by a medical professional or institution (, PA, STRINGED INSTRUMENT ASSEMBLER, urgent care, hospital, or [facility]...) When possible be specific @ -No Did you speak to anyone other than the patient for history (EMS, parent, family, police, friend...)? What history was obtained from this source @ -No Did you review nursing and triage notes (agree or disagree)? Why? @ -I reviewed and agree with nursing and triage notes Were old charts reviewed (outside hosp., previous admission, EMS record, old EKG, old radiological studies, urgent care reports/EKG's, [facility] records)? Report findings @ -No old charts were reviewed Differential Diagnosis (chest pain, altered mental status, abdominal pain women, abdominal pain men, vaginal bleeding, weakness, fever, dyspnea, syncope, headache, dizziness, GI bleed, back pain, seizure, CVA, palpatations, mental health, musculoskeletal)? @ -Differential Abdominal Pain Women: Appendicitis, Cholecystitis, diverticulosis, ischemic bowel, pancreatitis, hepatitis, UTI, gastroenteritis, AAA, incarcerated hernia, bowel obstruction, constipation, inflammatory bowel, hepatitis, peptic ulcer disease, splenic infarction, perforated viscus, vulvitis, ovarian torsion, PID, kidney stone, placenta abruption, this is not meant to be an all-inclusive list EKG interpreted by me (3pts min.). @ -None X-rays interpreted by me (1pt min.). @ -None done CT interpreted by me (1pt min.). @ -None done U/S interpreted by me (1pt. min.). @ -None done What testing was considered but not performed or refused? (CT, X-rays, U/S, labs)? Why? @ -None What meds were considered but not given or refused? Why? @ -None Did you discuss the management of the patient with other professionals (professionals i.e. , PA, STRINGED INSTRUMENT ASSEMBLER, lab, RT, psych nurse, renal social worker, senior agricultural assistant, teacher, loss prevention officer, heel caser)? Give summary @ -Dr. Rivera for admission Was smoking cessation discussed for >3mins.? @ -No Was critical care preformed (if so, how long)? @ -No Were there social determinants of health that impacted care today? How? (Homelessness, low income, unemployed, alcoholism, drug addiction, transportation, low edu. Level, literacy, decrease access to med. care, fdc, rehab)? @ -No Was there de-escalation of care discussed even if they declined (Discuss DNR or withdrawal of care, Hospice)? DNR status @ -No What co-morbidities impacted this encounter? (DM, HTN, Smoking, COPD, CAD, Cancer, CVA, ARF, Chemo, Hep., AIDS, mental health diagnosis, sleep apnea, morbid obesity)? @ -Marijuana abuse Was patient admitted / discharged? Hospital course, mention meds given and route, prescriptions, significant lab abnormalities, going to OR and other pertinent info. @ -[Admitted patient found to have elevated lipase over 700. Patient continues to have symptoms patient will be admitted for hydration, antiemetics Undiagnosed new problem with uncertain prognosis? @ -No Drug Therapy requiring intensive monitoring for toxicity (Heparin, Nitro, Insulin, Cardizem)? @ -No Were any procedures done? @ -No Diagnosis/symptom? @ -Hyperemesis cannabis induced, acute pancreatitis Acute, or Chronic, or Acute on Chronic? @ -Acute Uncomplicated (without systemic symptoms) or Complicated (systemic symptoms)? @ -Complicated Side effects of treatment? @ -No Exacerbation, Progression, or Severe Exacerbation? @ -No Poses a threat to life or bodily function? How? (Chest pain, [place], MA, pneumonia, PE, COPD, DKA, ARF, appy, cholecystitis, CVA, Diverticulitis, Homicidal, Suicidal, threat to staff... and all critical care pts) @ -No - Lab Data Result diagrams: 03/19/24 07:06 03/19/24 07:06 Lab Results 03/19/24 03/19/24 Range/Units 07:06 07:06 WBC 8.5 (3.8-10.6) k/uL RBC 4.82 (3.80-5.40) m/uL Hgb 14.1 (11.4-16.0) gm/dL Hct 42.3 (34.0-46.0) % MCV 87.7 (80.0-100.0) fL MCH 29.2 (25.0-35.0) pg MCHC 33.3 (31.0-37.0) g/dL RDW 12.3 (11.5-15.5) % Plt Count 276 (150-450) k/uL MPV 8.3 Neutrophils % 65 % Lymphocytes % 26 % Monocytes % 4 % Eosinophils % 3 % Basophils % 0 % Neutrophils # 5.5 (1.3-7.7) k/uL Lymphocytes # 2.2 (1.0-4.8) k/uL Monocytes # 0.4 (0-1.0) k/uL Eosinophils # 0.3 (0-0.7) k/uL Basophils # 0.0 (0-0.2) k/uL Sodium 139 (137-145) mmol/L Potassium 4.3 (3.5-5.1) mmol/L Chloride 110 H (98-107) mmol/L Carbon Dioxide 19 L (22-30) mmol/L Anion Gap 10 mmol/L BUN 10 (7-17) mg/dL Creatinine 0.62 (0.52-1.04) mg/dL Est GFR (CKD-EPI)AfAm >90 (>60 ml/min/1.73 sqM) Est GFR (CKD-EPI)NonAf >90 (>60 ml/min/1.73 sqM) Glucose 153 H (74-99) mg/dL Calcium 9.3 (8.4-10.2) mg/dL Total Bilirubin 0.9 (0.2-1.3) mg/dL AST 26 (14-36) U/L ALT 13 (4-34) U/L Alkaline Phosphatase 45 (38-126) U/L Total Protein 7.3 (6.3-8.2) g/dL Albumin 4.8 (3.5-5.0) g/dL Lipase 737 H (23-300) U/L Disposition Clinical Impression: Cannabis hyperemesis syndrome concurrent with and due to cannabis abuse, Acute pancreatitis Disposition: ADMITTED IP TO THIS HOSP Condition: Fair Referrals: Terry Rivera MD [Primary Care Provider] - 1-2 days Time of Disposition: 08:31
[2024-03-19] MEDS: SODIUM CHLORIDE 0.9% 2,000 ML IV STA (07:07)
[2024-03-19 07:19] LABS: Basophils % (A) 0 %; Eosinophils # (A) 0.3 k/uL (0-0.7); Eosinophils % (A) 3 %; HCT 42.3 % (34.0-46.0); HGB 14.1 gm/dL (11.4-16.0); Lymphocytes # (A) 2.2 k/uL (1.0-4.8); Lymphocytes % (A) 26 %; MCH 29.2 pg (25.0-35.0); MCHC 33.3 g/dL (31.0-37.0); MCV 87.7 fL (80.0-100.0); Mean Platelet Volume 8.3; Monocytes # (A) 0.4 k/uL (0-1.0); Monocytes % (A) 4 %; Neutrophils # (A) 5.5 k/uL (1.3-7.7); Neutrophils % (A) 65 %; Platelet Count 276 k/uL (150-450); RBC 4.82 m/uL (3.80-5.40); RDW 12.3 % (11.5-15.5); WBC 8.5 k/uL (3.8-10.6)
[2024-03-19] MEDS: diphenhydrAMINE 50 MG/ML 1 ML VIAL IVP STA (07:23)
[2024-03-19] MEDS: KETOROLAC 15 MG/ML 1 ML VIAL IVP STA (07:24)
[2024-03-19] MEDS: droPERidol 5 MG/2 ML VIAL IVP ONE (07:26)
[2024-03-19] MEDS: PANTOPRAZOLE 40 MG/10 ML VIAL IVP STA (07:27)
[2024-03-19 07:47] LABS: ALT 13 U/L (4-34); African American GFR (CKD) >90 (>60 ml/min/1.73 sqM); Anion Gap 10 mmol/L; Blood Urea Nitrogen 10 mg/dL (7-17); Calcium 9.3 mg/dL (8.4-10.2); Carbon Dioxide 19 mmol/L (22-30); Chloride 110 mmol/L (98-107); Glucose 153 mg/dL (74-99); Lipase 737 U/L (23-300); Non-African American GFR(CKD) >90 (>60 ml/min/1.73 sqM); Sodium 139 mmol/L (137-145); Total Bilirubin 0.9 mg/dL (0.2-1.3)
[2024-03-19 07:49] LABS: AST 26 U/L (14-36); Albumin 4.8 g/dL (3.5-5.0); Alkaline Phosphatase 45 U/L (38-126); Potassium 4.3 mmol/L (3.5-5.1); Total Protein 7.3 g/dL (6.3-8.2)
[2024-03-19] MEDS ORDERED: NALOXONE 0.4 MG/ML 1 ML VIAL IV PRN (08:31)
[2024-03-19 08:58] LABS: Appearance,Urine Cloudy (Clear); Bacteria,Urine Rare /hpf; Bilirubin,Urine Negative (Negative); Blood,Urine Moderate (Negative); Color,Urine Colorless; Glucose,Urine (UA) 1+ (Negative); Ketones,Urine 1+ (Negative); Leukocyte Esterase,Urine Trace (Negative); Mucus,Urine Many /hpf; Nitrite,Urine Negative (Negative); PH, Urine 5.5 (5.0-8.0); Protein,Urine Negative (Negative); RBC,Urine 12 /hpf (0-5); Specific Gravity,Urine 1.018 (1.001-1.035); Squamous Epithelial Cell,Urine 7 /hpf (0-4); Urobilinogen,Urine <2.0 mg/dL (<2.0); WBC,Urine 6 /hpf (0-5)
[2024-03-19] MEDS: KETOROLAC 15 MG/ML 1 ML VIAL IVP PRN (09:02)
[2024-03-19 09:12] LABS: Amphetamine Screen,Urine Not Detected (NotDetected); Barbiturate Screen,Urine Not Detected (NotDetected); Benzodiazepines Screen,Urine Not Detected (NotDetected); Cocaine Screen,Urine Not Detected (NotDetected); Methadone Screen, Urine Not Detected (NotDetected); Opiate Screen,Urine Not Detected (NotDetected); Oxycodone Screen, Urine Not Detected (NotDetected); Phencyclidine Screen,Urine Not Detected (NotDetected); Tricyclic Antidepressant,Urine Not Detected (NotDetected); Urn Cannabinoid Scrn Detected (NotDetected)
[2024-03-19] MEDS: SODIUM CHLORIDE 0.9% 1,000 ML IV SCH (10:11)
[2024-03-19] MEDS: ONDANSETRON 4 MG/2 ML VIAL IVP PRN (15:41)
[2024-03-19] MEDS: PROCHLORPERAZINE INJ 10 MG/2 ML VIAL IVP PRN (22:15)
[2024-03-19] MEDS: HYDROmorphone 1 MG/ML 1 ML SYRINGE IVP PRN (22:15)
[2024-03-20] MEDS: PANTOPRAZOLE 40 MG/10 ML VIAL IV SCH (08:04)
--- NOTE | 2024-03-20 15:21 | P.GSCN ---
History of Present Illness Consult date: 03/20/24 History of present illness: CHIEF COMPLAINT: Abdominal pain with nausea and vomiting HISTORY OF PRESENT ILLNESS: This is a 28-year-old female who presented to the hospital with complaints of epigastric abdominal pain with nausea and vomiting. She does have a known history of pancreatitis with known cholecystectomy and history of cannabis hyperemesis. Patient reports she has had increased stress at home. Her dad is needing open heart surgery. Patient reports that she is using marijuana again. Patient had an EGD in December 2023 that had reported mild gastritis and recurrence of hiatal hernia. Patient reports since being on fluids through the night and she is starting to feel better and requesting ice chips. Patient denies any alcohol use Patient seen and examined with Dr. Yusuf PAST MEDICAL HISTORY: GERD, pancreatitis PAST SURGICAL HISTORY: Cholecystectomy, hiatal hernia repair MEDICATIONS: See below ALLERGIES: See below SOCIAL HISTORY: No illicit drug use. REVIEW OF SYSTEMS: CONSTITUTIONAL: Denies fever or chills. HEENT: Denies blurred vision, vision changes, or eye pain. Denies hemoptysis CARDIOVASCULAR: Denies chest pain or pressure. RESPIRATORY: No shortness of breath. GASTROINTESTINAL: See HPI for pertinent findings HEMATOLOGIC: Denies bleeding disorders. GENITOURINARY: Denies any blood in urine or increased urinary frequency. SKIN: Denies pruitis. Denies rash. PHYSICAL EXAM: VITAL SIGNS: Reviewed GENERAL: Well-developed in no acute distress. HEENT: No sclera icterus. Extraocular movements grossly intact. Moist buccal mucosa. Head is atraumatic, normocephalic. No nasal drainage. ABDOMEN: Soft. Nondistended. Mild tenderness palpation epigastric area NEUROLOGIC: Alert and oriented. Cranial nerves II through XII grossly intact. LABORATORY DATA: WBC is 8.5 Hgb 14.1 platelets 276 Sodium is 139 potassium is 4.3 creatinine 0.62 LFTs normal lipase 737 Drug screen positive for marijuana IMAGING: ASSESSMENT: 1. Acute pancreatitis with known history of cholecystectomy. Recurrent episodes of pancreatitis 2. Cannabis hyperemesis PLAN: -MRI of the pancreas with MRCP ordered due to patient's recurrent pancreatitis, epigastric pain and vomiting -Keep patient n.p.o. except for ice chips -Continue IV fluid -Continue pain management -Repeat lipase in the a.m. Physician Bell Spinner Sousaphones note has been reviewed by physician. Signing provider agrees with the documented findings, assessment, and plan of care. Past Medical History Past Medical History: GERD/Reflux Additional Past Medical History / Comment(s): MIGRAINES, BACK PAIN. 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 No other history of STDs. Pancreatitis. History of Any Multi-Drug Resistant Organisms: None Reported Past Surgical History: Cholecystectomy, Hernia Repair Additional Past Surgical History / Comment(s): Hiatal hernia repair. Past Anesthesia/Blood Transfusion Reactions: Motion Sickness Additional Past Anesthesia/Blood Transfusion Reaction / Comm: NO ANESTHESIA HX Past Psychological History: Anxiety Smoking Status: Never smoker Past Alcohol Use History: Occasional Additional Past Alcohol Use History / Comment(s): QUIT SMOKING AT 21 YRS OLD, STARTED SMOKING AGE 15, SMOKED 1/2 PPD OR LESS. Past Drug Use History: Marijuana Additional Drug Use History / Comment(s): DAILY MARIJANA USE. - Past Family History Mother Family Medical History: No Reported History Additional Family Medical History / Comment(s): Maternal grandmother had colon cancer. A maternal great grandmother had breast cancer. Father Family Medical History: Hypertension Medications and Allergies Home Medications Medication Instructions Recorded Confirmed Type Ondansetron Odt [Zofran ODT] 8 mg PO Q8HR #30 tab 02/13/24 03/19/24 Rx Allergies Allergy/AdvReac Type Severity Reaction Status Date / Time No Known Allergies Allergy Verified 03/19/24 08:38 Surgical - Exam Vital Signs Temp Pulse Resp BP Pulse Ox 98.0 F 89 18 152/112 99 03/19/24 06:30 03/19/24 06:30 03/19/24 06:30 03/19/24 06:30 03/19/24 06:30 Results - Labs 03/19/24 07:06 03/19/24 07:06
[2024-03-20 15:49] LABS: Basophils % (A) 0 %; Eosinophils % (A) 0 %; HCT 34.4 % (34.0-46.0); HGB 11.9 gm/dL (11.4-16.0); Lymphocytes # (A) 1.8 k/uL (1.0-4.8); Lymphocytes % (A) 18 %; MCH 30.2 pg (25.0-35.0); MCHC 34.5 g/dL (31.0-37.0); MCV 87.7 fL (80.0-100.0); Mean Platelet Volume 8.7; Monocytes # (A) 0.5 k/uL (0-1.0); Monocytes % (A) 5 %; Neutrophils # (A) 7.6 k/uL (1.3-7.7); Neutrophils % (A) 75 %; Platelet Count 167 k/uL (150-450); RBC 3.93 m/uL (3.80-5.40); RDW 12.9 % (11.5-15.5); WBC 10.1 k/uL (3.8-10.6)
[2024-03-20 16:09] LABS: ALT 11 U/L (4-34); AST 22 U/L (14-36); African American GFR (CKD) >90 (>60 ml/min/1.73 sqM); Alkaline Phosphatase 55 U/L (38-126); Anion Gap 10 mmol/L; Blood Urea Nitrogen 9 mg/dL (7-17); Calcium 8.7 mg/dL (8.4-10.2); Carbon Dioxide 21 mmol/L (22-30); Chloride 108 mmol/L (98-107); Glucose 80 mg/dL (74-99); Lipase 44 U/L (23-300); Non-African American GFR(CKD) >90 (>60 ml/min/1.73 sqM); Potassium 3.2 mmol/L (3.5-5.1); Sodium 139 mmol/L (137-145); Total Bilirubin 0.5 mg/dL (0.2-1.3); Total Protein 6.2 g/dL (6.3-8.2)
[2024-03-20] MEDS ORDERED: Potassium Replacement Protocol 1 EACH MISC MISCELLANE PRN (17:29)
[2024-03-20] MEDS: POTASSIUM CHLORIDE ER 20 MEQ TAB.ER PO SCH (18:19)
[2024-03-20] MEDS: POTASSIUM CHLORIDE 10 MEQ in WATER FOR INJECTION 1 100ML.BAG IVPB SCH (20:12)
--- NOTE | 2024-03-21 01:19 | HP ---
HISTORY AND PHYSICAL HISTORY OF PRESENT ILLNESS: A 28-year-old white female came with nausea, vomiting, acute on chronic pancreatitis, came to the ER, seen in the emergency room on 03/19/2024. She is doing type fluid. She has acute on chronic history of pancreatitis, unclear source. She does not do any alcohol. HOME MEDICATIONS: Pepcid and [place]. ALLERGIES: Negative. REVIEW OF SYSTEMS: 14-point review of systems, otherwise negative. PAST MEDICAL HISTORY: GERD and migraines. SURGERY: Cholecystectomy, hernia repair. marijuana. FAMILY HISTORY: Mother with colon cancer. Father with hypertension. PHYSICAL EXAMINATION: VITAL SIGNS: Stable. Afebrile. HEENT: Normocephalic, atraumatic. Pupils equal, round, and reactive. CARDIOVASCULAR: S1, S2. LUNGS: Transmitted upper sounds. GI: Soft. HEMATOLOGY: Negative [place]. NEUROLOGIC: Alert and oriented x3. PSYCH: Fair mood and affect. VITAL SIGNS: Temperature 98, pulse 89, respiratory rate 16 to 18, and blood pressure 152/112. ASSESSMENT: Acute on chronic pancreatitis, hypertension acceleration, progressive nausea, vomiting, dehydration, rehydrate. Replace electrolytes. Surgical consult for pancreatitis, possible cannabis hyperemesis syndrome. PROGNOSIS: Guarded. Continue current treatment. Please see further orders. MMODL / IJN: [id number] /
[2024-03-21 08:53] LABS: Basophils # (A) 0.03 X 10*3/uL (0.00-0.10); Basophils % (A) 0.4 %; Eosinophils # (A) 0.03 X 10*3/uL (0.04-0.35); Eosinophils % (A) 0.4 %; HCT 35.2 % (37.2-46.3); HGB 11.8 g/dL (12.0-15.0); Lymphocytes # (A) 1.43 X 10*3/uL (0.90-5.00); MCH 29.1 pg (27.0-32.0); MCHC 33.5 g/dL (32.0-37.0); MCV 86.7 FL (80.0-97.0); Mean Platelet Volume 11.4 FL (9.5-12.2); Monocytes # (A) 0.47 X 10*3/uL (0.20-1.00); Monocytes % (A) 6.6 %; NRBC Per 100 WBC 0 X 10*3/uL (0.00-0.01); Neutrophils # (A) 5.16 X 10*3/uL (1.80-7.70); Neutrophils % (A) 72.3 %; Platelet Count 181 X 10*3/uL (140-440); RBC 4.06 X 10*6/uL (4.10-5.20); RDW 12.2 % (11.5-14.5); WBC 7.14 X 10*3/uL (4.50-10.00)
[2024-03-21 11:04] LABS: ALT 11 U/L (8-44); AST 21 U/L (13-35); Alkaline Phosphatase 61 U/L (41-126); Blood Urea Nitrogen 6.9 mg/dL (9.0-27.0); Calcium 8.2 mg/dL (8.7-10.3); Carbon Dioxide 20.4 mmol/L (21.6-31.8); Chloride 105 mmol/L (96-109); Glucose 69 mg/dL (70-110); Lipase 53 U/L (14-63); Potassium 3.7 mmol/L (3.5-5.5); Sodium 139 mmol/L (135-145); Total Bilirubin 0.4 mg/dL (0.3-1.2)
--- NOTE | 2024-03-21 13:21 | P.PN ---
Subjective Progress Note Date: 03/21/24 SURGICAL PROGRESS NOTE CHIEF COMPLAINT: Abdominal pain HISTORY OF PRESENT ILLNESS: Patient reports she is feeling better today. She is requesting to go home. Afebrile. WBC 7.14 lipase normal at 53 Patient seen and examined with Dr. Yusuf PHYSICAL EXAM: VITAL SIGNS: Reviewed. GENERAL: Well-developed in no acute distress. ABDOMEN: Soft. Nondistended. Nontender. NEUROLOGIC: Alert and oriented. Cranial nerves II through XII grossly intact. ASSESSMENT: 1. Acute pancreatitis with known history of cholecystectomy. Recurrent episodes of pancreatitis 2. Cannabis hyperemesis PLAN: -Patient scheduled for MRI of the pancreas with MRCP today -Patient can be discharged home from surgical standpoint after the MRI of the pancreas. Patient does not have to wait for results prior to discharge -Advance diet as tolerated Physician Emergency Service Restorer note has been reviewed by physician. Signing provider agrees with the documented findings, assessment, and plan of care. Objective - Vital Signs Vital signs: Vital Signs Temp 98.7 F 03/21/24 07:00 Pulse 77 03/21/24 07:00 Resp 16 03/21/24 07:00 BP 110/59 03/21/24 07:00 Pulse Ox 99 03/21/24 07:00 FiO2 Intake & Output 03/20/24 03/21/24 03/21/24 18:59 06:59 18:59 Output Total 50 Balance -50 Output: Emesis 50 Other: Voiding Method Toilet Toilet Toilet # Voids 3 - Labs CBC & Chem 7: 03/21/24 05:40 03/21/24 05:40 Labs: Abnormal Lab Results - Last 24 Hours (Table) 03/20/24 03/21/24 03/21/24 Range/Units 14:52 05:40 05:40 RBC 4.06 L (4.10-5.20) X 10*6/uL Hgb 11.8 L (12.0-15.0) g/dL Hct 35.2 L (37.2-46.3) % Eosinophils # 0.03 L (0.04-0.35) X 10*3/uL Potassium 3.2 L (3.5-5.1) mmol/L Chloride 108 H (98-107) mmol/L Carbon Dioxide 21 L 20.4 L (22-30) mmol/L Anion Gap 13.60 H (4.00-12.00) mmol/L BUN 6.9 L (9.0-27.0) mg/dL Creatinine 0.5 L (0.6-1.5) mg/dL Glucose 69 L (70-110) mg/dL Calcium 8.2 L (8.7-10.3) mg/dL Total Protein 6.2 L 6.0 L (6.3-8.2) g/dL
[2024-03-21 14:23] VITALS: BP 120/72; PULSE 64; RESP 15; TEMP 98.5
--- NOTE | 2024-03-21 18:35 | MR ---
EXAMINATION TYPE: MR pancreas / mrcp wo/w con DATE OF EXAM: 03/21/2024 4:34 PM COMPARISON: 02/12/2024, 02/15/2024 8 06/02/2023. 05/08/2023. CLINICAL INDICATION: Female, 28 years old with history of epigastric pain, vomiting, recurrent pancre atitis; PHH, Abd pain, vomiting, recurrent pancreatitis TECHNIQUE MRI ABDOMEN WITH CONTRAST: Multiplanar multi-sequence imaging was performed without and wit h IV contrast/gadolinium. The patient was given 6 cc Gadobutrol gadolinium intravenously and dynamic post-VIBE (volumetric interpolated breath-hold gradient recall echo) imaging was performed. IV Contrast: 6 mL Gadobutrol (None, if empty) TECHNIQUE MRCP ABDOMEN WITHOUT CONTRAST: Multi planar, T2-weighted imaging with and without fat satur ation and chemical shift imaging was performed of the abdomen. Then, heavily T2 weighted imaging (augusto f-Fourier acquisition single-shot turbo spin-echo) was utilized in order to study the biliary system. Maximum intensity projection images were reconstructed from the original data of the biliary tree. 3D reconstructions and MIP imaging performed on a separate workstation. FINDINGS: MRCP: * The intrahepatic ducts have a normal appearance. * The extrahepatic ducts have a normal appearance. * The common hepatic duct measures 6 mm in size. * The common bile duct at the level of the pancreatic head measures 5 mm in size. * The pancreatic duct is normal. * The gallbladder appears unremarkable. Abdomen: Liver: No evidence for hepatic steatosis or cirrhosis. Pancreas: No ductal dilation. No evidence for solid mass. Parenchyma appears within normal limits. No peripancreatic fat stranding identified. Spleen: Normal for size. Adrenal glands: Unremarkable. Kidneys: No evidence for obstructive uropathy. No suspicious renal masses. Stomach and Bowel: Moderate hiatal hernia noted. No evidence for bowel wall thickening or evidence fo r obstruction. Retroperitoneum/Peritoneum: No evidence of pneumoperitoneum or free fluid. Vasculature: No aortic aneurysm. Musculoskeletal: The osseous structures appear intact. Lymph Nodes: No gross evidence for lymphadenopathy. Abdominal wall: Unremarkable. IMPRESSION: 1. No evidence for acute abdominal process. No pancreatic parenchyma appears uniform without evidenc e for pancreatitis. 2. No evidence to suggest ductal stricture, choledocholithiasis, or biliary ductal dilatation. 3. Moderate hiatal hernia. [facility], , 03/21/2024 6:32 PM
== END 2024-03-21 19:41 | disposition home or self-care (01) ==
LOC: EC 06:21 → 6NMEDSUR 08:30 → 1SOBS 18:22 → 6NMEDSUR 03-20 16:33
PROVIDERS: ADMIT Family Medicine; ATTEND Family Medicine
DX: K85.90 Acute pancreatitis without necrosis or infection, unspecified (principal); K86.1 Other chronic pancreatitis; E86.0 Dehydration; F12.188 Cannabis abuse with other cannabis-induced disorder; K44.9 Diaphragmatic hernia without obstruction or gangrene; R03.0 Elevated blood-pressure reading, without diagnosis of hypertension; Z79.899 Other long term (current) drug therapy; Z87.891 Personal history of nicotine dependence; Z90.49 Acquired absence of other specified parts of digestive tract
CPT/HCPCS: 96376 ×3; 96361 ×2; 96365; 96366; 96375 ×2; 99284; 36415; 80053 ×3; 83690 ×3; 85025 ×3; 81001; 81025; 80306; 74183; G0378 ×5; J1200; J0780 ×3; J2405 ×3; J1171 ×3; J3480; J1885 ×2; J1790; A9585; J2470 ×3

== ENCOUNTER 2024-03-22 08:03 | Emergency (ER) | payer OTHER ==
--- NOTE | 2024-03-22 08:39 | ED ---
General Adult HPI - General Chief complaint: Abdominal Pain Stated complaint: Nausea/abd pain Time Seen by Provider: 03/22/24 08:05 Source: patient, RN notes reviewed, old records reviewed Mode of arrival: ambulatory Limitations: no limitations - History of Present Illness Initial comments: This is a 28-year-old female who presents to the emergency department stating that she has a history of pancreatitis. Patient states she was just released from the hospital yesterday. Patient stated that since she has been home she continues to have epigastric abdominal pain and vomiting. Patient had an MRI of her pancreas which showed no signs of any inflammation. Patient denies any chest pain difficulty breathing shortness of breath. Patient has any fever chills. Patient is requesting Dilaudid 3 times during the initial interview. - Related Data Previous Rx's Medication Instructions Recorded Ondansetron Odt [Zofran ODT] 8 mg PO Q8HR #30 tab 02/13/24 Allergies Allergy/AdvReac Type Severity Reaction Status Date / Time metoclopramide [From Reglan] AdvReac Unknown Verified 03/22/24 08:05 Review of Systems ROS Statement: Those systems with pertinent positive or pertinent negative responses have been documented in the HPI. ROS Other: All systems not noted in ROS Statement are negative. Past Medical History Past Medical History: GERD/Reflux Additional Past Medical History / Comment(s): MIGRAINES, BACK PAIN. Past ACID MAKER history: Genital HSV. No other history of STDs. Pancreatitis. History of Any Multi-Drug Resistant Organisms: None Reported Past Surgical History: Cholecystectomy, Hernia Repair Additional Past Surgical History / Comment(s): Hiatal hernia repair. Past Anesthesia/Blood Transfusion Reactions: Motion Sickness Additional Past Anesthesia/Blood Transfusion Reaction / Comment(s): NO ANEST HESIA HX Past Psychological History: Anxiety Smoking Status: Never smoker Past Alcohol Use History: Occasional Past Drug Use History: Marijuana - Past Family History Mother Family Medical History: No Reported History Additional Family Medical History / Comment(s): Maternal grandmother had colon cancer. A maternal great grandmother had breast cancer. Father Family Medical History: Hypertension General Exam - General Exam Comments Initial Comments: GENERAL: Patient is well-developed and well-nourished. Patient is nontoxic and well- hydrated and is in mild distress. ENT: Neck is soft and supple. No significant lymphadenopathy is noted. Oropharynx is clear. Moist mucous membranes. Neck has full range of motion without eliciting any pain. EYES: The sclera were anicteric and conjunctiva were pink and moist. Extraocular movements were intact and pupils were equal round and reactive to light. Eyelids were unremarkable. PULMONARY: Unlabored respirations. Good breath sounds bilaterally. No audible rales rhonchi or wheezing was noted. CARDIOVASCULAR: There is a regular rate and rhythm without any murmurs gallops or rubs. ABDOMEN: Soft and nontender with normal bowel sounds. SKIN: Skin is clear with no lesions or rashes and otherwise unremarkable. NEUROLOGIC: Patient is alert and oriented x3. Cranial nerves II through XII are grossly intact. Motor and sensory are also intact. Normal speech, volume and content. Symmetrical smile. MUSCULOSKELETAL: Normal extremities with adequate strength and full range of motion. LYMPHATICS: No significant lymphadenopathy is noted PSYCHIATRIC: Normal psychiatric evaluation. Limitations: no limitations Course Vital Signs 03/22/24 08:05 Temperature 98.5 F Pulse Rate 72 Respiratory 20 Rate Blood Pressure 156/86 O2 Sat by Pulse 97 Oximetry Medical Decision Making - Medical Decision Making EKG is interpreted by myself read EKG shows sinus bradycardia at 43 bpm VT interval is 135 QRS is 86 QT interval is 465 QTc is 413. Patient's EKG shows no ST segment elevation or depression Was pt. sent in by a medical professional or institution (TING Ghosh, REMOTE SENSING ANALYST, urgent care, hospital, or penitentiary...) When possible be specific @ -No Did you speak to anyone other than the patient for history (EMS, parent, family, police, friend...)? What history was obtained from this source @ -No Did you review nursing and triage notes (agree or disagree)? Why? @ -I reviewed and agree with nursing and triage notes Were old charts reviewed (outside hosp., previous admission, EMS record, old EKG, old radiological studies, urgent care reports/EKG's, penitentiary records)? Report findings @ -No old charts were reviewed Differential Diagnosis? @ -Cyclic vomiting secondary to cannabis, pancreatitis, viral syndrome, this is not an all-inclusive list EKG interpreted by me (3pts min.). @ -As above X-rays interpreted by me (1pt min.). @ -None done CT interpreted by me (1pt min.). @ -None done U/S interpreted by me (1pt. min.). @ -None done What testing was considered but not performed or refused? (CT, X-rays, U/S, labs)? Why? @ -None What meds were considered but not given or refused? Why? @ -None Did you discuss the management of the patient with other professionals (professionals i.e. , PA, REMOTE SENSING ANALYST, lab, RT, psych nurse, perinatal social worker, electric blasting cap assembler, teacher, chief business officer, pillowcase sewer)? Give summary @ -No Was smoking cessation discussed for >3mins.? @ -No Was critical care preformed (if so, how long)? @ -No Were there social determinants of health that impacted care today? How? (Homelessness, low income, unemployed, alcoholism, drug addiction, transportation, low edu. Level, literacy, decrease access to med. care, mcc, rehab)? @ -No Was there de-escalation of care discussed even if they declined (Discuss DNR or withdrawal of care, Hospice)? DNR status @ -No What co-morbidities impacted this encounter? (DM, HTN, Smoking, COPD, CAD, Cancer, CVA, ARF, Chemo, Hep., AIDS, mental health diagnosis, sleep apnea, morbid obesity)? @ -None Was patient admitted / discharged? Hospital course, mention meds given and route, prescriptions, significant lab abnormalities, going to OR and other pertinent info. @ -Patient was given droperidol for vomiting and she stopped vomiting while she was in the emergency department lab work was normal patient will be sent home with the instructions to stop smoking marijuana Undiagnosed new problem with uncertain prognosis? @ -No Drug Therapy requiring intensive monitoring for toxicity (Heparin, Nitro, Insulin, Cardizem)? @ -No Were any procedures done? @ -No Diagnosis/symptom? @ -Hyperemesis secondary to cannabis Acute, or Chronic, or Acute on Chronic? @ -Acute Uncomplicated (without systemic symptoms) or Complicated (systemic symptoms)? @ -Complicated Side effects of treatment? @ -No Exacerbation, Progression, or Severe Exacerbation? @ -No Poses a threat to life or bodily function? How? (Chest pain, [place], [place], pneumonia, PE, COPD, DKA, ARF, appy, cholecystitis, CVA, Diverticulitis, Homicidal, Suicidal, threat to staff... and all critical care pts) @ -No - Lab Data Result diagrams: 03/22/24 08:42 03/22/24 08:42 Lab Results 03/22/24 03/22/24 Range/Units 08:42 08:42 WBC 8.7 (3.8-10.6) k/uL RBC 4.50 (3.80-5.40) m/uL Hgb 13.3 (11.4-16.0) gm/dL Hct 38.8 (34.0-46.0) % MCV 86.3 (80.0-100.0) fL MCH 29.5 (25.0-35.0) pg MCHC 34.1 (31.0-37.0) g/dL RDW 12.3 (11.5-15.5) % Plt Count 235 (150-450) k/uL MPV 8.3 Neutrophils % 86 % Lymphocytes % 10 % Monocytes % 3 % Eosinophils % 1 % Basophils % 0 % Neutrophils # 7.4 (1.3-7.7) k/uL Lymphocytes # 0.9 L (1.0-4.8) k/uL Monocytes # 0.2 (0-1.0) k/uL Eosinophils # 0.1 (0-0.7) k/uL Basophils # 0.0 (0-0.2) k/uL Sodium 138 (137-145) mmol/L Potassium 3.4 L (3.5-5.1) mmol/L Chloride 105 (98-107) mmol/L Carbon Dioxide 16 L (22-30) mmol/L Anion Gap 17 mmol/L BUN 7 (7-17) mg/dL Creatinine 0.59 (0.52-1.04) mg/dL Est GFR (CKD-EPI)AfAm >90 (>60 ml/min/1.73 sqM) Est GFR (CKD-EPI)NonAf >90 (>60 ml/min/1.73 sqM) Glucose 105 H (74-99) mg/dL Calcium 9.3 (8.4-10.2) mg/dL Total Bilirubin 0.7 (0.2-1.3) mg/dL AST 20 (14-36) U/L ALT 14 (4-34) U/L Alkaline Phosphatase 73 (38-126) U/L Total Protein 7.1 (6.3-8.2) g/dL Albumin 4.8 (3.5-5.0) g/dL Amylase 52 (30-110) U/L Lipase 55 (23-300) U/L Disposition Clinical Impression: Cannabis hyperemesis syndrome concurrent with and due to cannabis abuse Disposition: HOME SELF-CARE Condition: Good Instructions (If sedation given, give patient instructions): Dehydration in Children (ED), Acute Nausea and Vomiting (ED) Is patient prescribed a controlled substance at d/c from ED?: No Referrals: Terry Rivera MD [Primary Care Provider] - 1-2 days Time of Disposition: 10:13
[2024-03-22] MEDS: SODIUM CHLORIDE 0.9% 1,000 ML IV STA (08:50)
[2024-03-22] MEDS: droPERidol 5 MG/2 ML VIAL IVP ONE (08:51)
[2024-03-22 08:59] LABS: Basophils % (A) 0 %; Eosinophils # (A) 0.1 k/uL (0-0.7); Eosinophils % (A) 1 %; HCT 38.8 % (34.0-46.0); HGB 13.3 gm/dL (11.4-16.0); Lymphocytes # (A) 0.9 k/uL (1.0-4.8); Lymphocytes % (A) 10 %; MCH 29.5 pg (25.0-35.0); MCHC 34.1 g/dL (31.0-37.0); MCV 86.3 fL (80.0-100.0); Mean Platelet Volume 8.3; Monocytes # (A) 0.2 k/uL (0-1.0); Monocytes % (A) 3 %; Neutrophils # (A) 7.4 k/uL (1.3-7.7); Neutrophils % (A) 86 %; Platelet Count 235 k/uL (150-450); RDW 12.3 % (11.5-15.5); WBC 8.7 k/uL (3.8-10.6)
[2024-03-22 09:08] LABS: ALT 14 U/L (4-34); AST 20 U/L (14-36); African American GFR (CKD) >90 (>60 ml/min/1.73 sqM); Albumin 4.8 g/dL (3.5-5.0); Alkaline Phosphatase 73 U/L (38-126); Amylase 52 U/L (30-110); Anion Gap 17 mmol/L; Blood Urea Nitrogen 7 mg/dL (7-17); Calcium 9.3 mg/dL (8.4-10.2); Carbon Dioxide 16 mmol/L (22-30); Chloride 105 mmol/L (98-107); Glucose 105 mg/dL (74-99); Lipase 55 U/L (23-300); Non-African American GFR(CKD) >90 (>60 ml/min/1.73 sqM); Potassium 3.4 mmol/L (3.5-5.1); Sodium 138 mmol/L (137-145); Total Bilirubin 0.7 mg/dL (0.2-1.3); Total Protein 7.1 g/dL (6.3-8.2)
[2024-03-22 10:26] VITALS: BP 119/69; PULSE 81; RESP 16; TEMP 98.9
== END 2024-03-22 10:30 | disposition home or self-care (01) ==
LOC: EC 08:03
DX: F12.10 Cannabis abuse, uncomplicated (principal); Z88.8 Allergy status to other drugs, medicaments and biological substances
CPT/HCPCS: 36415; 93005; 80053; 82150; 83690; 85025; 99284; 96374; 96361; J1790

== ENCOUNTER 2024-04-20 09:41 | Emergency (ER) | payer OTHER ==
[2024-04-20 09:45] VITALS: TEMP 98.2
[2024-04-20] MEDS: SODIUM CHLORIDE 0.9% 1,000 ML IV STA (10:04)
[2024-04-20 10:16] LABS: Basophils % (A) 0 %; Eosinophils # (A) 0.1 k/uL (0-0.7); Eosinophils % (A) 1 %; HCT 43.7 % (34.0-46.0); HGB 14.9 gm/dL (11.4-16.0); Lymphocytes # (A) 1.5 k/uL (1.0-4.8); Lymphocytes % (A) 11 %; MCH 29.2 pg (25.0-35.0); MCV 85.8 fL (80.0-100.0); Mean Platelet Volume 8.3; Monocytes # (A) 0.5 k/uL (0-1.0); Monocytes % (A) 4 %; Neutrophils # (A) 11.2 k/uL (1.3-7.7); Neutrophils % (A) 83 %; Platelet Count 329 k/uL (150-450); RBC 5.09 m/uL (3.80-5.40); RDW 12.5 % (11.5-15.5); WBC 13.5 k/uL (3.8-10.6)
[2024-04-20] MEDS: HYDROmorphone 1 MG/ML 1 ML SYRINGE IVP STA ×2 (10:23→11:56)
[2024-04-20] MEDS: ONDANSETRON 4 MG/2 ML VIAL IVP STA ×2 (10:24→13:35)
[2024-04-20 10:25] LABS: ALT 17 U/L (4-34); African American GFR (CKD) >90 (>60 ml/min/1.73 sqM); Amylase 61 U/L (30-110); Anion Gap 18 mmol/L; Blood Urea Nitrogen 19 mg/dL (7-17); Calcium 10.1 mg/dL (8.4-10.2); Carbon Dioxide 20 mmol/L (22-30); Chloride 101 mmol/L (98-107); Glucose 109 mg/dL (74-99); Lipase 79 U/L (23-300); Non-African American GFR(CKD) >90 (>60 ml/min/1.73 sqM); Sodium 139 mmol/L (137-145); Total Bilirubin 1.1 mg/dL (0.2-1.3)
--- NOTE | 2024-04-20 10:34 | ED ---
Abdominal Pain HPI - General Chief Complaint: Abdominal Pain Stated Complaint: NV Abd Pain Time Seen by Provider: 04/20/24 09:45 Source: patient, RN notes reviewed Mode of arrival: ambulatory Limitations: no limitations - History of Present Illness Initial Comments: This is a 28-year-old female who presents to the emergency department for abdominal pain, nausea, and vomiting. States that it started 2 days ago. Pain initially started in the left upper quadrant but states that it now encompasses the whole abdomen. Unsure if it feels like prior bouts of pancreatitis or something else. Denies any sick contacts. MD Complaint: abdominal pain - Related Data Previous Rx's Medication Instructions Recorded Ondansetron Odt [Zofran ODT] 8 mg PO Q8HR #30 tab 02/13/24 Celecoxib 200 mg PO BID PRN #20 cap 04/20/24 Ondansetron Odt [Zofran Odt] 4 mg PO Q8HR PRN #20 tab 04/20/24 Promethazine [Phenergan] 25 mg PO Q6HR PRN #20 tablet 04/20/24 Allergies Allergy/AdvReac Type Severity Reaction Status Date / Time tramadol Allergy Hallucinati Verified 04/20/24 09:45 ons metoclopramide [From Reglan] AdvReac Unknown Verified 03/22/24 08:05 Review of Systems ROS Statement: Those systems with pertinent positive or pertinent negative responses have been documented in the HPI. ROS Other: All systems not noted in ROS Statement are negative. Past Medical History Past Medical History: GERD/Reflux Additional Past Medical History / Comment(s): MIGRAINES, BACK PAIN. 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 No other history of STDs. Pancreatitis. History of Any Multi-Drug Resistant Organisms: None Reported Past Surgical History: Cholecystectomy, Hernia Repair Additional Past Surgical History / Comment(s): Hiatal hernia repair. Past Anesthesia/Blood Transfusion Reactions: Motion Sickness Additional Past Anesthesia/Blood Transfusion Reaction / Comment(s): NO ANESTHESIA HX Past Psychological History: Anxiety Smoking Status: Never smoker Past Alcohol Use History: Occasional Past Drug Use History: Marijuana - Past Family History Mother Family Medical History: No Reported History Additional Family Medical History / Comment(s): Maternal grandmother had colon cancer. A maternal great grandmother had breast cancer. Father Family Medical History: Hypertension General Exam Limitations: no limitations General appearance: alert, in distress Head exam: Present: atraumatic, normocephalic, normal inspection Respiratory exam: Present: normal lung sounds bilaterally. Absent: respiratory distress, wheezes, rales, rhonchi, stridor Cardiovascular Exam: Present: regular rate, normal rhythm, normal heart sounds. Absent: systolic murmur, diastolic murmur, rubs, gallop, clicks GI/Abdominal exam: Present: soft, tenderness (diffuse), normal bowel sounds. Absent: distended Neurological exam: Present: alert, oriented X3, CN II-XII intact Psychiatric exam: Present: normal affect, normal mood Skin exam: Present: warm, dry, intact, normal color. Absent: rash Course Vital Signs 04/20/24 04/20/24 04/20/24 09:42 11:11 11:54 Temperature 98.2 F Pulse Rate 55 L 73 71 Respiratory 20 18 18 Rate Blood Pressure 152/78 121/75 118/80 O2 Sat by Pulse 100 100 98 Oximetry 04/20/24 04/20/24 13:33 14:37 Temperature Pulse Rate 70 54 L Respiratory 18 18 Rate Blood Pressure 128/74 95/59 O2 Sat by Pulse 99 99 Oximetry Medical Decision Making - Medical Decision Making This is a 28-year-old female who presents to the emergency department for abdominal pain, nausea, and vomiting. Was pt. sent in by a medical professional or institution? @ -No Did you speak to anyone other than the patient for history? @ -No Did you review nursing and triage notes? @ -Yes, and I agree, it is accurate with regards to the patient's symptoms. Were old charts reviewed? @ -No Differential Diagnosis? @ -Differential Abdominal Pain Women: Appendicitis, Cholecystitis, diverticulosis, ischemic bowel, pancreatitis, hepatitis, UTI, gastroenteritis, AAA, incarcerated hernia, bowel obstruction, constipation, inflammatory bowel, hepatitis, peptic ulcer disease, splenic infarction, perforated viscus, vulvitis, ovarian torsion, PID, kidney stone, placenta abruption, this is not meant to be an all-inclusive list EKG interpreted by me (3pts min.)? @ -Not obtained X-rays interpreted by me (1pt min.)? @ -Not obtained CT interpreted by me (1pt min.)? @ -Not obtained U/S interpreted by me (1pt. min.)? @ -Not obtained What testing was considered but not performed? (CT, X-rays, U/S, labs)? Why? @ -None What meds were considered but not given? Why? @ -None Did you discuss the management of the patient with other professionals? @ -No Did you reconcile home meds? @ -No Was smoking cessation discussed for >3mins.? @ -I discussed smoking cessation for greater than 3 minutes. The risk of smoking were discussed with the patient including but not limited to risks of cancer, stroke, coronary artery disease and COPD. Also discussed with patient were multiple methods of quitting smoking. Lastly we discussed the financial cost of smoking. Was critical care preformed (if so, how long)? @ -No Were there social determinants of health that impacted care today? How? (Homelessness, low income, unemployed, alcoholism, drug addiction, transportation, low edu. Level, literacy, decrease access to med. care, fpc, rehab)? @ -No Was there de-escalation of care discussed even if they declined? (Discuss DNR or withdrawal of care, Hospice)? @ -No What co-morbidities impacted this encounter? (DM, HTN, Smoking, COPD, CAD, Cancer, CVA, Hep., AIDS, mental health diagnosis, sleep apnea, morbid obesity)? @ -Smoking Was patient admitted / discharged? @ -Discharged. Lab work demonstrates mild leukocytosis with a white blood cell count of 13.5. Lactic acid mildly elevated at 2.1. Lab work otherwise unremarkable. Pancreatic enzymes within normal limits. Symptoms well- controlled in the emergency department and she was tolerating oral intake. We discussed the option for discharge home versus admission for intractable symptoms. States that her symptoms are at a tolerable level and she would rather go home at this point. Her MAPS was reviewed and she received a prescription for Elizabeth earlier this month that was written for 23 days. Celebrex prescribed for pain along with Zofran and Phenergan for any additional nausea. Patient discharged home in stable condition and advised to follow-up with her PCP. Case discussed with ED attending Dr. Galvan. Return precautions reviewed in depth, the patient is instructed to return to the emergency department with any new, worsening, or concerning symptoms. Patient verbalized understanding. Undiagnosed new problem with uncertain prognosis? @ -None Drug Therapy requiring intensive monitoring for toxicity (Heparin, Nitro, Insuli n, Cardizem)? @ -None Were any procedures done? @ -None Diagnosis/symptom? @ -Abdominal pain, nausea and vomiting Acute, or Chronic, or Acute on Chronic? @ -Acute Uncomplicated (without systemic symptoms) or Complicated (systemic symptoms)? @ -Uncomplicated Side effects of treatment? @ -None Exacerbation, Progression, or Severe Exacerbation] @ -Not applicable Poses a threat to life or bodily function? @ -No - Lab Data Result diagrams: 04/20/24 10:00 04/20/24 10:00 Lab Results 04/20/24 04/20/24 04/20/24 Range/Units 10:00 10:00 10:00 WBC 13.5 H (3.8-10.6) k/uL RBC 5.09 (3.80-5.40) m/uL Hgb 14.9 (11.4-16.0) gm/dL Hct 43.7 (34.0-46.0) % MCV 85.8 (80.0-100.0) fL MCH 29.2 (25.0-35.0) pg MCHC 34.0 (31.0-37.0) g/dL RDW 12.5 (11.5-15.5) % Plt Count 329 (150-450) k/uL MPV 8.3 Neutrophils % 83 % Lymphocytes % 11 % Monocytes % 4 % Eosinophils % 1 % Basophils % 0 % Neutrophils # 11.2 H (1.3-7.7) k/uL Lymphocytes # 1.5 (1.0-4.8) k/uL Monocytes # 0.5 (0-1.0) k/uL Eosinophils # 0.1 (0-0.7) k/uL Basophils # 0.0 (0-0.2) k/uL Sodium 139 (137-145) mmol/L Potassium 4.1 (3.5-5.1) mmol/L Chloride 101 (98-107) mmol/L Carbon Dioxide 20 L (22-30) mmol/L Anion Gap 18 mmol/L BUN 19 H (7-17) mg/dL Creatinine 0.72 (0.52-1.04) mg/dL Est GFR (CKD-EPI)AfAm >90 (>60 ml/min/1.73 sqM) Est GFR (CKD-EPI)NonAf >90 (>60 ml/min/1.73 sqM) Glucose 109 H (74-99) mg/dL Lactic Ac Sepsis Rflx Plasma Lactic Acid Ilya 2.1 H* (0.7-2.0) mmol/L Calcium 10.1 (8.4-10.2) mg/dL Phosphorus 3.9 (2.5-4.5) mg/dL Magnesium 2.4 H (1.6-2.3) mg/dL Total Bilirubin 1.1 (0.2-1.3) mg/dL AST 26 (14-36) U/L ALT 17 (4-34) U/L Alkaline Phosphatase 65 (38-126) U/L Total Protein 8.4 H (6.3-8.2) g/dL Albumin 5.2 H (3.5-5.0) g/dL Amylase 61 (30-110) U/L Lipase 79 (23-300) U/L HCG, Qual 04/20/24 04/20/24 Range/Units 10:00 11:35 WBC (3.8-10.6) k/uL RBC (3.80-5.40) m/uL Hgb (11.4-16.0) gm/dL Hct (34.0-46.0) % MCV (80.0-100.0) fL MCH (25.0-35.0) pg MCHC (31.0-37.0) g/dL RDW (11.5-15.5) % Plt Count (150-450) k/uL MPV Neutrophils % % Lymphocytes % % Monocytes % % Eosinophils % % Basophils % % Neutrophils # (1.3-7.7) k/uL Lymphocytes # (1.0-4.8) k/uL Monocytes # (0-1.0) k/uL Eosinophils # (0-0.7) k/uL Basophils # (0-0.2) k/uL Sodium (137-145) mmol/L Potassium (3.5-5.1) mmol/L Chloride (98-107) mmol/L Carbon Dioxide (22-30) mmol/L Anion Gap mmol/L BUN (7-17) mg/dL Creatinine (0.52-1.04) mg/dL Est GFR (CKD-EPI)AfAm (>60 ml/min/1.73 sqM) Est GFR (CKD-EPI)NonAf (>60 ml/min/1.73 sqM) Glucose (74-99) mg/dL Lactic Ac Sepsis Rflx Y Plasma Lactic Acid Ilya (0.7-2.0) mmol/L Calcium (8.4-10.2) mg/dL Phosphorus (2.5-4.5) mg/dL Magnesium (1.6-2.3) mg/dL Total Bilirubin (0.2-1.3) mg/dL AST (14-36) U/L ALT (4-34) U/L Alkaline Phosphatase (38-126) U/L Total Protein (6.3-8.2) g/dL Albumin (3.5-5.0) g/dL Amylase (30-110) U/L Lipase (23-300) U/L HCG, Qual Not Detected Disposition Clinical Impression: Abdominal pain, Nausea and vomiting, Nicotine dependence Disposition: HOME SELF-CARE Instructions (If sedation given, give patient instructions): Acute Nausea and Vomiting (ED), Abdominal Pain (ED) Additional Instructions: Return to the emergency department with any new, worsening, or concerning symptoms. Take the Celebrex twice daily as needed for pain relief. You can take the Zofran up to every 8 hours as needed for nausea and vomiting and the Phenergan up to every 6 hours for nausea and vomiting. Slowly advance your diet as tolerated and remain well-hydrated. Follow up with your primary care provider in 1-2 days. Prescriptions: Celecoxib 200 mg PO BID PRN #20 cap PRN Reason: Pain Promethazine [Phenergan] 25 mg PO Q6HR PRN #20 tablet PRN Reason: Nausea And Vomiting Ondansetron Odt [Zofran Odt] 4 mg PO Q8HR PRN #20 tab PRN Reason: Nausea And Vomiting Is patient prescribed a controlled substance at d/c from ED?: No Referrals: Terry Rivera MD [Primary Care Provider] - 1-2 days Time of Disposition: 13:17
[2024-04-20 11:13] VITALS: RESP 18
[2024-04-20 11:34] LABS: AST 26 U/L (14-36); Albumin 5.2 g/dL (3.5-5.0); Alkaline Phosphatase 65 U/L (38-126); Magnesium 2.4 mg/dL (1.6-2.3); Phosphorus 3.9 mg/dL (2.5-4.5); Potassium 4.1 mmol/L (3.5-5.1); Total Protein 8.4 g/dL (6.3-8.2)
[2024-04-20] MEDS: KETOROLAC 15 MG/ML 1 ML VIAL IVP STA (11:56)
[2024-04-20] MEDS: HYDROmorphone 0.5 MG/0.5 ML SYRINGE IVP STA (13:34)
[2024-04-20 14:40] VITALS: BP 95/59; PULSE 54
== END 2024-04-20 14:55 | disposition home or self-care (01) ==
LOC: EC 09:41
DX: R10.9 Unspecified abdominal pain (principal); F17.200 Nicotine dependence, unspecified, uncomplicated; Z88.5 Allergy status to narcotic agent; Z88.8 Allergy status to other drugs, medicaments and biological substances
CPT/HCPCS: 36415; 80053; 82150; 83605; 83690; 83735; 84100; 85025; 84703; 99284; 99406; 96374; 96375; 96376; 96361; J2405; J1171 ×2

== ENCOUNTER 2024-04-21 05:04 | Emergency (ER) | payer OTHER ==
[2024-04-21] MEDS: ONDANSETRON 4 MG/2 ML VIAL IVP STA ×2 (05:52→07:45)
[2024-04-21] MEDS: MORPHINE SULFATE 4 MG/ML SYRINGE IV STA ×2 (06:02→06:26)
[2024-04-21] MEDS: SODIUM CHLORIDE 0.9% 1,000 ML IV ONE ×2 (06:04→06:27)
[2024-04-21 06:06] LABS: Basophils % (A) 0 %; Eosinophils % (A) 0 %; HCT 40.5 % (34.0-46.0); Lymphocytes # (A) 1.6 k/uL (1.0-4.8); Lymphocytes % (A) 16 %; MCH 29.6 pg (25.0-35.0); MCHC 34.6 g/dL (31.0-37.0); MCV 85.7 fL (80.0-100.0); Mean Platelet Volume 8.2; Monocytes # (A) 0.5 k/uL (0-1.0); Monocytes % (A) 5 %; Neutrophils # (A) 7.9 k/uL (1.3-7.7); Neutrophils % (A) 78 %; Platelet Count 260 k/uL (150-450); RBC 4.73 m/uL (3.80-5.40); RDW 12.2 % (11.5-15.5); WBC 10.2 k/uL (3.8-10.6)
[2024-04-21 06:07] LABS: ALT 137 U/L (4-34); AST 80 U/L (14-36); African American GFR (CKD) >90 (>60 ml/min/1.73 sqM); Albumin 4.5 g/dL (3.5-5.0); Alkaline Phosphatase 75 U/L (38-126); Amylase 151 U/L (30-110); Anion Gap 14 mmol/L; Blood Urea Nitrogen 13 mg/dL (7-17); Calcium 9.2 mg/dL (8.4-10.2); Carbon Dioxide 20 mmol/L (22-30); Chloride 100 mmol/L (98-107); Glucose 93 mg/dL (74-99); Lipase 573 U/L (23-300); Non-African American GFR(CKD) >90 (>60 ml/min/1.73 sqM); Potassium 3.2 mmol/L (3.5-5.1); Sodium 134 mmol/L (137-145); Total Bilirubin 1.2 mg/dL (0.2-1.3)
[2024-04-21 06:36] VITALS: RESP 18
[2024-04-21 07:12] LABS: Appearance,Urine Cloudy (Clear); Bacteria,Urine Rare /hpf; Bilirubin,Urine Negative (Negative); Blood,Urine Large (Negative); Color,Urine Yellow; Glucose,Urine (UA) Negative (Negative); Hyaline Casts,Urine 7 /lpf (0-2); Ketones,Urine 3+ (Negative); Leukocyte Esterase,Urine Moderate (Negative); Mucus,Urine Many /hpf; Nitrite,Urine Negative (Negative); PH, Urine 6.5 (5.0-8.0); Protein,Urine 1+ (Negative); RBC,Urine >182 /hpf (0-5); Squamous Epithelial Cell,Urine 6 /hpf (0-4); WBC,Urine 15 /hpf (0-5)
--- NOTE | 2024-04-21 07:15 | ED ---
Abdominal Pain HPI - General Source: patient Mode of arrival: ambulatory Limitations: no limitations - History of Present Illness MD Complaint: abdominal pain -: days(s) Location: diffuse Radiation: none Migration to: no migration Severity: severe Quality: aching Consistency: constant Improves With: nothing Worsens With: nothing Associated Symptoms: nausea, vomiting <Clark Mcmillan - Last Filed: 04/21/24 07:12> <Rivka Galvan - Last Filed: 04/22/24 19:41> - General Chief Complaint: Abdominal Pain Stated Complaint: N/Abd Pain Time Seen by Provider: 04/21/24 05:40 - History of Present Illness Initial Comments: This patient is a 28-year-old woman with history of pancreatitis who presents with pain across the upper abdomen that has been going on approximately 3 days now. Patient was seen here yesterday for same, had medications and did have some relief and went home. She states that shortly after the symptoms recurred and she returns here to have evaluation. She states the pain is not identical to her usual pancreatitis though it does have similar aspects. She is also having nausea and is not tolerating oral intake. She has not noted fever or chills. No hematemesis or coffee-ground emesis. No change in bowel movements or urination. She states she is currently having her menstrual cycle and it does not appear to be unusual. (Clark Mcmillan) - Related Data Previous Rx's Medication Instructions Recorded Ondansetron Odt [Zofran ODT] 8 mg PO Q8HR #30 tab 02/13/24 Celecoxib 200 mg PO BID PRN #20 cap 04/20/24 Ondansetron Odt [Zofran Odt] 4 mg PO Q8HR PRN #20 tab 04/20/24 Promethazine [Phenergan] 25 mg PO Q6HR PRN #20 tablet 04/20/24 Allergies Allergy/AdvReac Type Severity Reaction Status Date / Time tramadol Allergy Hallucinati Verified 04/21/24 05:08 ons metoclopramide [From Reglan] AdvReac Unknown Verified 04/21/24 05:08 Review of Systems ROS Other: All systems not noted in ROS Statement are negative. Constitutional: Denies: fever, chills Respiratory: Denies: cough, dyspnea Cardiovascular: Denies: chest pain, palpitations, edema Gastrointestinal: Reports: abdominal pain, nausea, vomiting. Denies: diarrhea, constipation Genitourinary: Denies: dysuria, hematuria, discharge, abnormal menses Musculoskeletal: Denies: back pain Skin: Denies: rash Neurological: Denies: headache, weakness, numbness <Clark Mcmillan - Last Filed: 04/21/24 07:12> ROS Other: All systems not noted in ROS Statement are negative. <Rivka Galvan - Last Filed: 04/22/24 19:41> ROS Statement: Those systems with pertinent positive or pertinent negative responses have been documented in the HPI. Past Medical History Past Medical History: GERD/Reflux Additional Past Medical History / Comment(s): MIGRAINES, BACK PAIN. 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 No other history of STDs. Pancreatitis. History of Any Multi-Drug Resistant Organisms: None Reported Past Surgical History: Cholecystectomy, Hernia Repair Additional Past Surgical History / Comment(s): Hiatal hernia repair. Past Anesthesia/Blood Transfusion Reactions: Motion Sickness Additional Past Anesthesia/Blood Transfusion Reaction / Comment(s): NO ANESTHESIA HX Past Psychological History: Anxiety Smoking Status: Never smoker Past Alcohol Use History: Occasional Past Drug Use History: Marijuana - Past Family History Mother Family Medical History: No Reported History Additional Family Medical History / Comment(s): Maternal grandmother had colon cancer. A maternal great grandmother had breast cancer. Father Family Medical History: Hypertension <Clark Mcmillan - Last Filed: 04/21/24 07:12> General Exam Limitations: no limitations General appearance: alert, in no apparent distress Head exam: Present: atraumatic, normocephalic Eye exam: Present: normal appearance. Absent: scleral icterus, conjunctival injection ENT exam: Present: normal oropharynx Neck exam: Present: normal inspection Respiratory exam: Present: normal lung sounds bilaterally. Absent: respiratory distress, wheezes, rales, rhonchi, stridor, accessory muscle use Cardiovascular Exam: Present: regular rate, normal rhythm, normal heart sounds. Absent: systolic murmur, diastolic murmur, rubs, gallop GI/Abdominal exam: Present: soft. Absent: distended, tenderness, guarding, rebound, rigid, mass, pulsatile mass, hernia Extremities exam: Present: normal inspection, normal capillary refill. Absent: pedal edema, calf tenderness Back exam: Present: normal inspection. Absent: CVA tenderness (R), CVA tenderness (L) Neurological exam: Present: alert Skin exam: Present: warm, dry, intact, normal color. Absent: rash <Clark Mcmillan - Last Filed: 04/21/24 07:12> Course Vital Signs 04/21/24 04/21/24 04/21/24 05:08 06:35 10:00 Temperature 98.4 F 98 F Pulse Rate 54 L 55 L 60 Respiratory 20 18 18 Rate Blood Pressure 140/80 156/82 106/62 O2 Sat by Pulse 98 98 99 Oximetry 04/21/24 11:06 Temperature Pulse Rate 59 L Respiratory 18 Rate Blood Pressure 106/72 O2 Sat by Pulse 98 Oximetry Medical Decision Making - Lab Data Result diagrams: 04/21/24 05:31 04/21/24 05:31 <KyleClark lunsford - Last Filed: 04/21/24 07:12> - Lab Data Result diagrams: 04/21/24 05:31 04/21/24 05:31 <Rivka Galvan - Last Filed: 04/22/24 19:41> - Medical Decision Making Was patient admitted / discharged? Hospital course, mention meds given and route, prescriptions, significant lab abnormalities, going to OR and other pertinent info. @ -Patient signed out to me awaiting reevaluation of her symptoms. Patient continues to report nausea and vomiting therefore did give her another dose of nausea and pain medications. I did discuss admission however patient wants to see if these medications work first. She is reevaluated and states that she does feel comfortable going home at this time. Patient is instructed to discontinue marijuana. Follow-up with her doctor within 2 to 4 days for reevaluation of her symptoms and return for any new or worsening symptoms Undiagnosed new problem with uncertain prognosis? @ -No Drug Therapy requiring intensive monitoring for toxicity (Heparin, Nitro, Insulin, Cardizem)? @ -No Were any procedures done? @ -No Diagnosis/symptom? @ -Intractable nausea vomiting, THC use Acute, or Chronic, or Acute on Chronic? @ -Acute on chronic Uncomplicated (without systemic symptoms) or Complicated (systemic symptoms)? @ -Complicated Side effects of treatment? @ -No Exacerbation, Progression, or Severe Exacerbation? @ -No Poses a threat to life or bodily function? How? (Chest pain, [place], [place], pneumonia, PE, COPD, DKA, ARF, appy, cholecystitis, CVA, Diverticulitis, Homicidal, Suicidal, threat to staff... and all critical care pts) @ -No (Rivka Galvan) - Lab Data Lab Results 04/21/24 04/21/24 04/21/24 Range/Units 05:31 05:31 05:31 WBC 10.2 (3.8-10.6) k/uL RBC 4.73 (3.80-5.40) m/uL Hgb 14.0 (11.4-16.0) gm/dL Hct 40.5 (34.0-46.0) % MCV 85.7 (80.0-100.0) fL MCH 29.6 (25.0-35.0) pg MCHC 34.6 (31.0-37.0) g/dL RDW 12.2 (11.5-15.5) % Plt Count 260 (150-450) k/uL MPV 8.2 Neutrophils % 78 % Lymphocytes % 16 % Monocytes % 5 % Eosinophils % 0 % Basophils % 0 % Neutrophils # 7.9 H (1.3-7.7) k/uL Lymphocytes # 1.6 (1.0-4.8) k/uL Monocytes # 0.5 (0-1.0) k/uL Eosinophils # 0.0 (0-0.7) k/uL Basophils # 0.0 (0-0.2) k/uL Sodium 134 L (137-145) mmol/L Potassium 3.2 L (3.5-5.1) mmol/L Chloride 100 (98-107) mmol/L Carbon Dioxide 20 L (22-30) mmol/L Anion Gap 14 mmol/L BUN 13 (7-17) mg/dL Creatinine 0.70 (0.52-1.04) mg/dL Est GFR (CKD-EPI)AfAm >90 (>60 ml/min/1.73 sqM) Est GFR (CKD-EPI)NonAf >90 (>60 ml/min/1.73 sqM) Glucose 93 (74-99) mg/dL Plasma Lactic Acid Ilya (0.7-2.0) mmol/L Calcium 9.2 (8.4-10.2) mg/dL Total Bilirubin 1.2 (0.2-1.3) mg/dL AST 80 H (14-36) U/L ALT 137 H (4-34) U/L Alkaline Phosphatase 75 (38-126) U/L C-Reactive Protein <0.5 (<1.0) mg/dL Total Protein 7.0 (6.3-8.2) g/dL Albumin 4.5 (3.5-5.0) g/dL Amylase 151 H (30-110) U/L Lipase 573 H (23-300) U/L Urine Color Urine Appearance (Clear) Urine pH (5.0-8.0) Ur Specific [place] (1.001-1.035) Urine Protein (Negative) Urine Glucose (UA) (Negative) Urine Ketones (Negative) Urine Blood (Negative) Urine Nitrite (Negative) Urine Bilirubin (Negative) Urine Urobilinogen (<2.0) mg/dL Ur Leukocyte Esterase (Negative) Urine RBC (0-5) /hpf Urine WBC (0-5) /hpf Ur Squamous Epith Cells (0-4) /hpf Urine Bacteria (None) /hpf Hyaline Casts (0-2) /lpf Urine Mucus (None) /hpf Urine HCG, Qual (Not Detectd) 04/21/24 04/21/24 04/21/24 Range/Units 06:01 06:35 06:35 WBC (3.8-10.6) k/uL RBC (3.80-5.40) m/uL Hgb (11.4-16.0) gm/dL Hct (34.0-46.0) % MCV (80.0-100.0) fL MCH (25.0-35.0) pg MCHC (31.0-37.0) g/dL RDW (11.5-15.5) % Plt Count (150-450) k/uL MPV Neutrophils % % Lymphocytes % % Monocytes % % Eosinophils % % Basophils % % Neutrophils # (1.3-7.7) k/uL Lymphocytes # (1.0-4.8) k/uL Monocytes # (0-1.0) k/uL Eosinophils # (0-0.7) k/uL Basophils # (0-0.2) k/uL Sodium (137-145) mmol/L Potassium (3.5-5.1) mmol/L Chloride (98-107) mmol/L Carbon Dioxide (22-30) mmol/L Anion Gap mmol/L BUN (7-17) mg/dL Creatinine (0.52-1.04) mg/dL Est GFR (CKD-EPI)AfAm (>60 ml/min/1.73 sqM) Est GFR (CKD-EPI)NonAf (>60 ml/min/1.73 sqM) Glucose (74-99) mg/dL Plasma Lactic Acid Ilya 0.8 (0.7-2.0) mmol/L Calcium (8.4-10.2) mg/dL Total Bilirubin (0.2-1.3) mg/dL AST (14-36) U/L ALT (4-34) U/L Alkaline Phosphatase (38-126) U/L C-Reactive Protein (<1.0) mg/dL Total Protein (6.3-8.2) g/dL Albumin (3.5-5.0) g/dL Amylase (30-110) U/L Lipase (23-300) U/L Urine Color Yellow Urine Appearance Cloudy H (Clear) Urine pH 6.5 (5.0-8.0) Ur Specific [place] 1.030 (1.001-1.035) Urine Protein 1+ H (Negative) Urine Glucose (UA) Negative (Negative) Urine Ketones 3+ H (Negative) Urine Blood Large H (Negative) Urine Nitrite Negative (Negative) Urine Bilirubin Negative (Negative) Urine Urobilinogen 6.0 (<2.0) mg/dL Ur Leukocyte Esterase Moderate H (Negative) Urine RBC >182 H (0-5) /hpf Urine WBC 15 H (0-5) /hpf Ur Squamous Epith Cells 6 H (0-4) /hpf Urine Bacteria Rare H (None) /hpf Hyaline Casts 7 H (0-2) /lpf Urine Mucus Many H (None) /hpf Urine HCG, Qual Not Detected (Not Detectd) Disposition <Clark Mcmillan - Last Filed: 04/21/24 07:12> Is patient prescribed a controlled substance at d/c from ED?: No Time of Disposition: 10:54 <Rivka Galvan - Last Filed: 04/22/24 19:41> Clinical Impression: Nausea and vomiting, Cyclical vomiting Disposition: HOME SELF-CARE Condition: Stable Instructions (If sedation given, give patient instructions): Acute Nausea and Vomiting (ED) Additional Instructions: Please follow-up with your primary care doctor. Discontinue marijuana use. Return for any new or worsening symptoms Referrals: Terry Rivera MD [Primary Care Provider] - 1-2 days
[2024-04-21] MEDS: HYDROmorphone 0.5 MG/0.5 ML SYRINGE IVP STA (07:47)
[2024-04-21] MEDS: PROCHLORPERAZINE INJ 10 MG/2 ML VIAL IVP STA (09:44)
[2024-04-21] MEDS: HYDROmorphone 1 MG/ML 1 ML SYRINGE IVP STA (09:45)
[2024-04-21 10:07] VITALS: TEMP 98
[2024-04-21 11:07] VITALS: BP 106/72; PULSE 59
== END 2024-04-21 11:07 | disposition home or self-care (01) ==
LOC: EC 05:04
DX: G43.A0 Cyclical vomiting, in migraine, not intractable (principal); F12.90 Cannabis use, unspecified, uncomplicated; Z88.6 Allergy status to analgesic agent; Z88.8 Allergy status to other drugs, medicaments and biological substances
CPT/HCPCS: 36415; 80053; 82150; 83605; 83690; 85025; 86140; 81001; 81025; 99284; 96374; 96375 ×3; 96376 ×2; 96361; J2270; J0780; J2405; J1171 ×2

== ENCOUNTER 2024-04-23 06:48 | Emergency (ER) | payer OTHER ==
[2024-04-23 06:52] VITALS: RESP 16
--- NOTE | 2024-04-23 07:04 | ED ---
General Adult HPI - General Chief complaint: Abdominal Pain Stated complaint: Abdominal Pain Time Seen by Provider: 04/23/24 06:54 Source: patient, RN notes reviewed Mode of arrival: ambulatory Limitations: no limitations - History of Present Illness Initial comments: This is a 28-year-old female with a history of marijuana abuse and pancreatitis presenting to the emergency department for reevaluation. Patient has been evaluated the emergency department multiple times over the past week for similar complaints. She endorses nausea with no reported emesis over the past 2 days. She admits to pain in her epigastric abdomen that is nonradiating. She denies hematemesis, coffee-ground emesis, fevers, chills, dysuria, hematuria, vaginal discharge or odor. States that she has taken Zofran with relief however is presenting for pain evaluation. - Related Data Previous Rx's Medication Instructions Recorded Ondansetron Odt [Zofran ODT] 8 mg PO Q8HR #30 tab 02/13/24 Celecoxib 200 mg PO BID PRN #20 cap 04/20/24 Ondansetron Odt [Zofran Odt] 4 mg PO Q8HR PRN #20 tab 04/20/24 Promethazine [Phenergan] 25 mg PO Q6HR PRN #20 tablet 04/20/24 Allergies Allergy/AdvReac Type Severity Reaction Status Date / Time ketorolac [From Toradol] AdvReac Unknown Verified 04/23/24 07:47 metoclopramide [From Reglan] AdvReac Unknown Verified 04/21/24 05:08 morphine AdvReac Unknown Verified 04/23/24 06:52 Review of Systems ROS Statement: Those systems with pertinent positive or pertinent negative responses have been documented in the HPI. ROS Other: All systems not noted in ROS Statement are negative. Past Medical History Past Medical History: GERD/Reflux Additional Past Medical History / Comment(s): MIGRAINES, BACK PAIN. 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 No other history of STDs. Pancreatitis. History of Any Multi-Drug Resistant Organisms: None Reported Past Surgical History: Cholecystectomy, Hernia Repair Additional Past Surgical History / Comment(s): Hiatal hernia repair. Past Anesthesia/Blood Transfusion Reactions: Motion Sickness Additional Past Anesthesia/Blood Transfusion Reaction / Comment(s): NO ANESTHESIA HX Past Psychological History: Anxiety Smoking Status: Never smoker Past Alcohol Use History: Occasional Past Drug Use History: Marijuana - Past Family History Mother Family Medical History: No Reported History Additional Family Medical History / Comment(s): Maternal grandmother had colon cancer. A maternal great grandmother had breast cancer. Father Family Medical History: Hypertension General Exam Limitations: no limitations General appearance: alert, in no apparent distress Neck exam: Present: normal inspection. Absent: tenderness, meningismus, lymphadenopathy Respiratory exam: Present: normal lung sounds bilaterally. Absent: respiratory distress, wheezes, rales, rhonchi, stridor Cardiovascular Exam: Present: regular rate, normal rhythm, normal heart sounds. Absent: systolic murmur, diastolic murmur, rubs, gallop, clicks GI/Abdominal exam: Present: soft, tenderness (epigastric), normal bowel sounds. Absent: distended, guarding, rebound, rigid, mass, bruit, pulsatile mass Extremities exam: Present: normal inspection, full ROM, normal capillary refill. Absent: tenderness, pedal edema, joint swelling, calf tenderness Back exam: Present: normal inspection Course Vital Signs 04/23/24 06:50 Temperature 98.5 F Pulse Rate 65 Respiratory 16 Rate Blood Pressure 137/90 O2 Sat by Pulse 100 Oximetry Medical Decision Making - Medical Decision Making Was pt. sent in by a medical professional or institution (, PA, DESK PEN SET ASSEMBLER, urgent care, hospital, or [facility]...) When possible be specific @ -No Did you speak to anyone other than the patient for history (EMS, parent, family, police, friend...)? What history was obtained from this source @ -No Did you review nursing and triage notes (agree or disagree)? Why? @ -I reviewed and agree with nursing and triage notes Were old charts reviewed (outside hosp., previous admission, EMS record, old EKG, old radiological studies, urgent care reports/EKG's, [facility] records)? Report findings @ -No old charts were reviewed Differential Diagnosis (chest pain, altered mental status, abdominal pain women, abdominal pain men, vaginal bleeding, weakness, fever, dyspnea, syncope, headache, dizziness, GI bleed, back pain, seizure, CVA, palpatations, mental health, musculoskeletal)? @ -Differential Abdominal Pain Women: Appendicitis, Cholecystitis, diverticulosis, ischemic bowel, pancreatitis, hepatitis, UTI, gastroenteritis, AAA, incarcerated hernia, bowel obstruction, constipation, inflammatory bowel, hepatitis, peptic ulcer disease, splenic infarction, perforated viscus, vulvitis, ovarian torsion, PID, kidney stone, placenta abruption, this is not meant to be an all-inclusive list EKG interpreted by me (3pts min.). @ -None X-rays interpreted by me (1pt min.). @ -None done CT interpreted by me (1pt min.). @ -None done U/S interpreted by me (1pt. min.). @ -None done What testing was considered but not performed or refused? (CT, X-rays, U/S, labs)? Why? @ -None What meds were considered but not given or refused? Why? @ -None Did you discuss the management of the patient with other professionals (professionals i.e. , PA, DESK PEN SET ASSEMBLER, lab, RT, psych nurse, social insurance analyst, cream beater, teacher, property officer, caser shoe parts)? Give summary @ -No Was smoking cessation discussed for >3mins.? @ -No Was critical care preformed (if so, how long)? @ -No Were there social determinants of health that impacted care today? How? (Homelessness, low income, unemployed, alcoholism, drug addiction, transportation, low edu. Level, literacy, decrease access to med. care, skilled nursing, r ehab)? @ -No Was there de-escalation of care discussed even if they declined (Discuss DNR or withdrawal of care, Hospice)? DNR status @ -No What co-morbidities impacted this encounter? (DM, HTN, Smoking, COPD, CAD, Cancer, CVA, ARF, Chemo, Hep., AIDS, mental health diagnosis, sleep apnea, morbid obesity)? @ -None Was patient admitted / discharged? Hospital course, mention meds given and route, prescriptions, significant lab abnormalities, going to OR and other pertinent info. @ -Discharge. 28-year-old female presenting to the department for complaint of epigastric abdominal pain and nausea. Patient has presented multiple times recently for same complaint. She is noted to have epigastric tenderness on palpation with no signs of rebound tenderness or rigidity. She is provided with IV fluids, antiemetics, pain medications pending laboratory results. Labs remarkable for hypokalemia with a potassium of 3.2 elevated pancreatic enzymes of lipase 1389 and amylase 215. Urine remarkable for 3+ ketones consistent with dehydration and blood consistent with menses. Patient was offered CT imaging and ultrasound imaging however she has declined. additionally, patient was offered admission for diagnosis of acute pancreatitis for continuted pain control, antiemetics, and fluid resuscitation. Patient has declined admission, she states that she has Zofran and [place] that she takes at home for pain/nausea and will follow-up with her primary care provider outpatient. She is also provided with potassium supplement. All questions have been answered at bedside answered return parameters have discussed with the patient she is verbalized understanding. Case discussed with Dr. Boykin Undiagnosed new problem with uncertain prognosis? @ -No Drug Therapy requiring intensive monitoring for toxicity (Heparin, Nitro, Insulin, Cardizem)? @ -No Were any procedures done? @ -No Diagnosis/symptom? @ -Pancreatitis Acute, or Chronic, or Acute on Chronic? @ -Acute, acute on chronic Uncomplicated (without systemic symptoms) or Complicated (systemic symptoms)? @ -uncomplicated Side effects of treatment? @ -No Exacerbation, Progression, or Severe Exacerbation? @ -No Poses a threat to life or bodily function? How? (Chest pain, [place], [place], pneumonia, PE, COPD, DKA, ARF, appy, cholecystitis, CVA, Diverticulitis, Homicidal, Suicidal, threat to staff... and all critical care pts) @ -No - Lab Data Result diagrams: 04/23/24 07:37 04/23/24 07:37 Lab Results 04/23/24 04/23/24 04/23/24 Range/Units 07:37 07:37 07:37 WBC 7.0 (3.8-10.6) k/uL RBC 4.68 (3.80-5.40) m/uL Hgb 13.8 (11.4-16.0) gm/dL Hct 39.8 (34.0-46.0) % MCV 85.1 (80.0-100.0) fL MCH 29.6 (25.0-35.0) pg MCHC 34.8 (31.0-37.0) g/dL RDW 12.2 (11.5-15.5) % Plt Count 218 (150-450) k/uL MPV 8.2 Neutrophils % 69 % Lymphocytes % 23 % Monocytes % 6 % Eosinophils % 1 % Basophils % 1 % Neutrophils # 4.8 (1.3-7.7) k/uL Lymphocytes # 1.6 (1.0-4.8) k/uL Monocytes # 0.4 (0-1.0) k/uL Eosinophils # 0.1 (0-0.7) k/uL Basophils # 0.0 (0-0.2) k/uL Sodium (137-145) mmol/L Potassium (3.5-5.1) mmol/L Chloride (98-107) mmol/L Carbon Dioxide (22-30) mmol/L Anion Gap mmol/L BUN (7-17) mg/dL Creatinine (0.52-1.04) mg/dL Est GFR (CKD-EPI)AfAm (>60 ml/min/1.73 sqM) Est GFR (CKD-EPI)NonAf (>60 ml/min/1.73 sqM) Glucose (74-99) mg/dL Calcium (8.4-10.2) mg/dL Total Bilirubin (0.2-1.3) mg/dL AST (14-36) U/L ALT (4-34) U/L Alkaline Phosphatase (38-126) U/L Total Protein (6.3-8.2) g/dL Albumin (3.5-5.0) g/dL Amylase (30-110) U/L Lipase (23-300) U/L Urine Color Yellow Urine Appearance Cloudy H (Clear) Urine pH 6.5 (5.0-8.0) Ur Specific [place] 1.025 (1.001-1.035) Urine Protein 1+ H (Negative) Urine Glucose (UA) Negative (Negative) Urine Ketones 3+ H (Negative) Urine Blood Large H (Negative) Urine Nitrite Negative (Negative) Urine Bilirubin Negative (Negative) Urine Urobilinogen 8.0 (<2.0) mg/dL Ur Leukocyte Esterase Trace H (Negative) Urine RBC 78 H (0-5) /hpf Urine WBC 7 H (0-5) /hpf Ur Squamous Epith Cells 8 H (0-4) /hpf Urine Mucus Many H (None) /hpf Urine HCG, Qual Not Detected (Not Detectd) 04/23/24 Range/Units 07:37 WBC (3.8-10.6) k/uL RBC (3.80-5.40) m/uL Hgb (11.4-16.0) gm/dL Hct (34.0-46.0) % MCV (80.0-100.0) fL MCH (25.0-35.0) pg MCHC (31.0-37.0) g/dL RDW (11.5-15.5) % Plt Count (150-450) k/uL MPV Neutrophils % % Lymphocytes % % Monocytes % % Eosinophils % % Basophils % % Neutrophils # (1.3-7.7) k/uL Lymphocytes # (1.0-4.8) k/uL Monocytes # (0-1.0) k/uL Eosinophils # (0-0.7) k/uL Basophils # (0-0.2) k/uL Sodium 136 L (137-145) mmol/L Potassium 3.2 L (3.5-5.1) mmol/L Chloride 99 (98-107) mmol/L Carbon Dioxide 22 (22-30) mmol/L Anion Gap 15 mmol/L BUN 9 (7-17) mg/dL Creatinine 0.59 (0.52-1.04) mg/dL Est GFR (CKD-EPI)AfAm >90 (>60 ml/min/1.73 sqM) Est GFR (CKD-EPI)NonAf >90 (>60 ml/min/1.73 sqM) Glucose 98 (74-99) mg/dL Calcium 8.8 (8.4-10.2) mg/dL Total Bilirubin 0.8 (0.2-1.3) mg/dL AST 29 (14-36) U/L ALT 128 H (4-34) U/L Alkaline Phosphatase 67 (38-126) U/L Total Protein 6.5 (6.3-8.2) g/dL Albumin 4.2 (3.5-5.0) g/dL Amylase 215 H (30-110) U/L Lipase 1389 H (23-300) U/L Urine Color Urine Appearance (Clear) Urine pH (5.0-8.0) Ur Specific [place] (1.001-1.035) Urine Protein (Negative) Urine Glucose (UA) (Negative) Urine Ketones (Negative) Urine Blood (Negative) Urine Nitrite (Negative) Urine Bilirubin (Negative) Urine Urobilinogen (<2.0) mg/dL Ur Leukocyte Esterase (Negative) Urine RBC (0-5) /hpf Urine WBC (0-5) /hpf Ur Squamous Epith Cells (0-4) /hpf Urine Mucus (None) /hpf Urine HCG, Qual (Not Detectd) Disposition Clinical Impression: Pancreatitis Disposition: HOME SELF-CARE Condition: Stable Instructions (If sedation given, give patient instructions): Pancreatitis (ED) Additional Instructions: Please return to the Emergency Department if symptoms worsen or any other concerns. Continue to take Zofran and pain medications as needed. Is important you follow-up with your primary care provider outpatient. Is patient prescribed a controlled substance at d/c from ED?: No Referrals: Terry Rivera MD [Primary Care Provider] - 1-2 days Time of Disposition: 08:46
[2024-04-23] MEDS: SODIUM CHLORIDE 0.9% 1,000 ML IV STA (07:33)
[2024-04-23] MEDS: ONDANSETRON 4 MG/2 ML VIAL IVP STA (07:34)
[2024-04-23] MEDS: KETOROLAC 15 MG/ML 1 ML VIAL IVP STA (07:36)
[2024-04-23] MEDS: PANTOPRAZOLE 40 MG/10 ML VIAL IVP STA (07:37)
[2024-04-23 07:56] LABS: Basophils % (A) 1 %; Eosinophils # (A) 0.1 k/uL (0-0.7); Eosinophils % (A) 1 %; HCT 39.8 % (34.0-46.0); HGB 13.8 gm/dL (11.4-16.0); Lymphocytes # (A) 1.6 k/uL (1.0-4.8); Lymphocytes % (A) 23 %; MCH 29.6 pg (25.0-35.0); MCHC 34.8 g/dL (31.0-37.0); MCV 85.1 fL (80.0-100.0); Mean Platelet Volume 8.2; Monocytes # (A) 0.4 k/uL (0-1.0); Monocytes % (A) 6 %; Neutrophils # (A) 4.8 k/uL (1.3-7.7); Neutrophils % (A) 69 %; Platelet Count 218 k/uL (150-450); RBC 4.68 m/uL (3.80-5.40); RDW 12.2 % (11.5-15.5)
[2024-04-23] MEDS: HYDROmorphone 1 MG/ML 1 ML SYRINGE IVP STA (08:16)
[2024-04-23 08:19] LABS: ALT 128 U/L (4-34); AST 29 U/L (14-36); African American GFR (CKD) >90 (>60 ml/min/1.73 sqM); Albumin 4.2 g/dL (3.5-5.0); Alkaline Phosphatase 67 U/L (38-126); Amylase 215 U/L (30-110); Anion Gap 15 mmol/L; Blood Urea Nitrogen 9 mg/dL (7-17); Calcium 8.8 mg/dL (8.4-10.2); Carbon Dioxide 22 mmol/L (22-30); Chloride 99 mmol/L (98-107); Glucose 98 mg/dL (74-99); Lipase 1389 U/L (23-300); Non-African American GFR(CKD) >90 (>60 ml/min/1.73 sqM); Potassium 3.2 mmol/L (3.5-5.1); Sodium 136 mmol/L (137-145); Total Bilirubin 0.8 mg/dL (0.2-1.3); Total Protein 6.5 g/dL (6.3-8.2)
[2024-04-23 08:36] LABS: Appearance,Urine Cloudy (Clear); Bilirubin,Urine Negative (Negative); Blood,Urine Large (Negative); Color,Urine Yellow; Glucose,Urine (UA) Negative (Negative); Ketones,Urine 3+ (Negative); Leukocyte Esterase,Urine Trace (Negative); Mucus,Urine Many /hpf; Nitrite,Urine Negative (Negative); PH, Urine 6.5 (5.0-8.0); Protein,Urine 1+ (Negative); RBC,Urine 78 /hpf (0-5); Specific Gravity,Urine 1.025 (1.001-1.035); Squamous Epithelial Cell,Urine 8 /hpf (0-4); WBC,Urine 7 /hpf (0-5)
[2024-04-23] MEDS: POTASSIUM CHLORIDE ER 20 MEQ TAB.ER PO STA (08:48)
[2024-04-23 09:44] VITALS: BP 135/88; PULSE 67; TEMP 98.4
== END 2024-04-23 09:44 | disposition home or self-care (01) ==
LOC: EC 06:48
DX: K85.90 Acute pancreatitis without necrosis or infection, unspecified (principal); Z88.8 Allergy status to other drugs, medicaments and biological substances; Z88.5 Allergy status to narcotic agent; Z88.6 Allergy status to analgesic agent
CPT/HCPCS: 36415; 80053; 82150; 83690; 85025; 81001; 81025; 99284; 96374; 96375 ×2; 96361 ×2; J2405; J1171; J2470

== ENCOUNTER 2024-05-22 23:38 | Observation (INO) | payer OTHER ==
[2024-05-23] MEDS: ONDANSETRON 4 MG/2 ML VIAL IVP STA ×2 (00:05→01:12)
[2024-05-23] MEDS: PANTOPRAZOLE 40 MG/10 ML VIAL IVP STA (00:06)
[2024-05-23] MEDS: HYDROmorphone 0.5 MG/0.5 ML SYRINGE IVP STA ×2 (00:09→01:13)
--- NOTE | 2024-05-23 00:10 | ED ---
General Adult HPI - General Chief complaint: Abdominal Pain Stated complaint: ABD Pain, NV Time Seen by Provider: 05/22/24 23:45 Source: patient, RN notes reviewed, old records reviewed Mode of arrival: ambulatory Limitations: no limitations - History of Present Illness Initial comments: Patient is a 28-year-old female who frequents our emergency department for abdominal pain, nausea and vomiting. He has a frequent history of this. Patient has a history of hyperemesis syndrome. History of marijuana abuse, cholecystectomy. Denies any recent marijuana use. States that for the last few days she has been having her typical epigastric abdominal discomfort with nonbilious nonbloody emesis. Has no other acute complaints. No fevers or chi lls. No URI symptoms. No urinary complaints. Denies . Presents for further evaluation at this time.Patient denies being . - Related Data Previous Rx's Medication Instructions Recorded Ondansetron Odt [Zofran ODT] 8 mg PO Q8HR #30 tab 02/13/24 Celecoxib 200 mg PO BID PRN #20 cap 04/20/24 Ondansetron Odt [Zofran Odt] 4 mg PO Q8HR PRN #20 tab 04/20/24 Promethazine [Phenergan] 25 mg PO Q6HR PRN #20 tablet 04/20/24 Allergies Allergy/AdvReac Type Severity Reaction Status Date / Time ketorolac [From Toradol] AdvReac Unknown Verified 05/22/24 23:42 metoclopramide [From Reglan] AdvReac Unknown Verified 05/22/24 23:42 morphine AdvReac Unknown Verified 05/22/24 23:42 Review of Systems ROS Statement: Those systems with pertinent positive or pertinent negative responses have been documented in the HPI. Review of Systems: CONST: Denies fever EYES: Denies blurry vision ENT: Denies nasal congestion C/V: Denies Chest pain RESP: Denies shortness of breath GI: Endorses epigastric abdominal pain : Denies dysuria SKIN: Denies rash. MSK: Denies joint pain. NEURO: Denies headache ROS Other: All systems not noted in ROS Statement are negative. Past Medical History Past Medical History: GERD/Reflux Additional Past Medical History / Comment(s): MIGRAINES, BACK PAIN. 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 No other history of STDs. Pancreatitis. History of Any Multi-Drug Resistant Organisms: None Reported Past Surgical History: Cholecystectomy, Hernia Repair Additional Past Surgical History / Comment(s): Hiatal hernia repair. Past Anesthesia/Blood Transfusion Reactions: Motion Sickness Additional Past Anesthesia/Blood Transfusion Reaction / Comment(s): NO ANESTHESIA HX Past Psychological History: Anxiety Smoking Status: Never smoker Past Alcohol Use History: Occasional Past Drug Use History: Marijuana - Past Family History Mother Family Medical History: No Reported History Additional Family Medical History / Comment(s): Maternal grandmother had colon cancer. A maternal great grandmother had breast cancer. Father Family Medical History: Hypertension General Exam - General Exam Comments Initial Comments: General: Appears mild distress secondary to abdominal pain. HEAD: Normal with no signs of head trauma. EYES: EOMI ENT: Hearing grossly intact, normal oropharynx. RESPIRATORY: Clear breath sounds bilaterally. No wheezes, rales, or rhonchi. C/V: Regular rate and rhythm. S1 and S2 auscultated, no edema, peripheral pulses 2+ and intact throughout ABD: Abdomen soft, nondistended. Tender palpation in the epigastric region. No guarding or rebound tenderness. No peritoneal signs. EXT: Normal range of motion, no obvious deformity SKIN: No rashes or lesions observed on exposed skin. NEURO: Alert and oriented x 4 Limitations: no limitations Course Vital Signs 05/22/24 05/23/24 23:39 04:00 Temperature 97.3 F L Pulse Rate 72 82 Respiratory 20 17 Rate Blood Pressure 162/84 111/67 O2 Sat by Pulse 100 100 Oximetry Medical Decision Making - Medical Decision Making Patient was pt. sent in by a medical professional or institution (TING Ghosh, INTELLIGENT SYSTEMS ENGINEER, urgent care, hospital, or assisted...) When possible be specific @ -No Did you speak to anyone other than the patient for history (EMS, parent, family, police, friend...)? What history was obtained from this source @ -No Did you review nursing and triage notes (agree or disagree)? Why? @ -I reviewed and agree with nursing and triage notes Were old charts reviewed (outside hosp., previous admission, EMS record, old EKG, old radiological studies, urgent care reports/EKG's, assisted records)? Report findings @ -Old charts reviewed showing multiple visits back in April 2024 for similar complaints. Differential Diagnosis (chest pain, altered mental status, abdominal pain women, abdominal pain men, vaginal bleeding, weakness, fever, dyspnea, syncope, head ache, dizziness, GI bleed, back pain, seizure, CVA, palpatations, mental health, musculoskeletal)? @ -Differential Abdominal Pain Women: Appendicitis, Cholecystitis, diverticulosis, ischemic bowel, pancreatitis, hepatitis, UTI, gastroenteritis, AAA, incarcerated hernia, bowel obstruction, constipation, inflammatory bowel, hepatitis, peptic ulcer disease, splenic infarction, perforated viscus, vulvitis, ovarian torsion, PID, kidney stone, placenta abruption, this is not meant to be an all-inclusive list EKG interpreted by me (3pts min.). @ -As above X-rays interpreted by me (1pt min.). @ -None done CT interpreted by me (1pt min.). @ -None done U/S interpreted by me (1pt. min.). @ -None done What testing was considered but not performed or refused? (CT, X-rays, U/S, labs)? Why? @ -Considered abdominal imaging however patient is here frequently for similar complaints. We will obtain labs first. She was in agreement this plan. Afterwards, patient was in agreement that her symptoms are pretty typical for her previous cases and still would like to avoid acute CT scan at this time which I think is reasonable as I have evaluated her in the past and agree with her. What meds were considered but not given or refused? Why? @ -None Did you discuss the management of the patient with other professionals (professionals i.e. , PA, INTELLIGENT SYSTEMS ENGINEER, lab, RT, psych nurse, geriatric social worker, outreach rep, teacher, staff antisubmarine officer, correctional case manager)? Give summary @ -I spoke with the admitting provider, Dr. Louis who is covering for Dr. Rivera who accepted the admission. He requested the patient be kept NPO. Was smoking cessation discussed for >3mins.? @ -No Was critical care preformed (if so, how long)? @ -No Were there social determinants of health that impacted care today? How? (Homelessness, low income, unemployed, alcoholism, drug addiction, transportation, low edu. Level, literacy, decrease access to med. care, [facility], rehab)? @ -No Was there de-escalation of care discussed even if they declined (Discuss DNR or withdrawal of care, Hospice)? DNR status @ -No What co-morbidities impacted this encounter? (DM, HTN, Smoking, COPD, CAD, Cancer, CVA, ARF, Chemo, Hep., AIDS, mental health diagnosis, sleep apnea, morbid obesity)? @ -None Was patient admitted / discharged? Hospital course, mention meds given and route, prescriptions, significant lab abnormalities, going to OR and other pe rtinent info. @ -Based on the patient's presentation and physical exam, patient presents for acute on chronic abdominal pain with nausea and vomiting. Here frequently for it. Will obtain abdominal labs and symptomatically treat with IV fluids, Dilaudid, Zofran, Protonix. She was in agreement this plan. Patient's laboratory studies returned remarkable for lactic acidosis of 2.7. Hemolyzed potassium, however renal function within normal limits and EKG shows no evidence of hyperkalemic changes. Urinalysis positive for 3+ ketones. Viral swabs negative. On reevaluation, patient has required multiple doses of pain meds, nausea meds. Is still feeling nauseous and has thrown up. Discussed options including possible CT imaging however patient states she has received numerous CTs in the past and would like to avoid it at this time. She states this feels like her typical symptoms. I believe this is reasonable. Patient will be admitted to observation for intractable nausea and vomiting. She was in agreement this plan. Gallbladder ultrasound not indicated as she has no gallbladder. Discussed administering Haldol, Reglan however patient states that she does not tolerate these medications well. Therefore we will avoid these. I spoke with the admitting provider, Dr. Louis who is covering for Dr. Rivera who accepted the admission. He requested the patient be kept NPO. Undiagnosed new problem with uncertain prognosis? @ -No Drug Therapy requiring intensive monitoring for toxicity (Heparin, Nitro, Insulin, Cardizem)? @ -No Were any procedures done? @ -No Diagnosis/symptom? @ -Intractable nausea and vomiting, dehydration, hyperemesis syndrome Acute, or Chronic, or Acute on Chronic? @ -Acute Uncomplicated (without systemic symptoms) or Complicated (systemic symptoms)? @ -Complicated Side effects of treatment? @ -None Exacerbation, Progression, or Severe Exacerbation] @ -No Poses a threat to life or bodily function? @ -Possibly, yes - Lab Data Result diagrams: 05/22/24 23:58 05/22/24 23:58 Lab Results 05/22/24 05/22/24 05/22/24 Range/Units 23:53 23:58 23:58 WBC 9.9 (3.8-10.6) k/uL RBC 5.19 (3.80-5.40) m/uL Hgb 14.8 (11.4-16.0) gm/dL Hct 44.5 (34.0-46.0) % MCV 85.9 (80.0-100.0) fL MCH 28.5 (25.0-35.0) pg MCHC 33.2 (31.0-37.0) g/dL RDW 12.8 (11.5-15.5) % Plt Count 280 (150-450) k/uL MPV 8.5 Neutrophils % 88 % Lymphocytes % 7 % Monocytes % 4 % Eosinophils % 0 % Basophils % 0 % Neutrophils # 8.7 H (1.3-7.7) k/uL Lymphocytes # 0.7 L (1.0-4.8) k/uL Monocytes # 0.4 (0-1.0) k/uL Eosinophils # 0.0 (0-0.7) k/uL Basophils # 0.0 (0-0.2) k/uL PT 11.2 (10.0-12.5) sec INR 1.0 (<1.2) APTT 22.0 (22.0-30.0) sec Sodium (137-145) mmol/L Potassium (3.5-5.1) mmol/L Chloride (98-107) mmol/L Carbon Dioxide (22-30) mmol/L Anion Gap mmol/L BUN (7-17) mg/dL Creatinine (0.52-1.04) mg/dL Est GFR (CKD-EPI)AfAm (>60 ml/min/1.73 sqM) Est GFR (CKD-EPI)NonAf (>60 ml/min/1.73 sqM) Glucose (74-99) mg/dL Lactic Ac Sepsis Rflx Plasma Lactic Acid Ilya (0.7-2.0) mmol/L Calcium (8.4-10.2) mg/dL Total Bilirubin (0.2-1.3) mg/dL AST (14-36) U/L ALT (4-34) U/L Alkaline Phosphatase (38-126) U/L Total Protein (6.3-8.2) g/dL Albumin (3.5-5.0) g/dL Amylase (30-110) U/L Lipase (23-300) U/L Urine Color Urine Appearance (Clear) Urine pH (5.0-8.0) Ur Specific [place] (1.001-1.035) Urine Protein (Negative) Urine Glucose (UA) (Negative) Urine Ketones (Negative) Urine Blood (Negative) Urine Nitrite (Negative) Urine Bilirubin (Negative) Urine Urobilinogen (<2.0) mg/dL Ur Leukocyte Esterase (Negative) Urine RBC (0-5) /hpf Urine WBC (0-5) /hpf Ur Squamous Epith Cells (0-4) /hpf Hyaline Casts (0-2) /lpf Urine Mucus (None) /hpf Urine Yeast (Budding) (None) /hpf Urine HCG, Qual (Not Detectd) Influenza Type A (PCR) Not Detected (Not Detectd) Influenza Type B (PCR) Not Detected (Not Detectd) RSV (PCR) Not Detected (Not Detectd) SARS-CoV-2 (PCR) Not Detected (Not Detectd) 05/22/24 05/22/24 05/23/24 Range/Units 23:58 23:58 00:56 WBC (3.8-10.6) k/uL RBC (3.80-5.40) m/uL Hgb (11.4-16.0) gm/dL Hct (34.0-46.0) % MCV (80.0-100.0) fL MCH (25.0-35.0) pg MCHC (31.0-37.0) g/dL RDW (11.5-15.5) % Plt Count (150-450) k/uL MPV Neutrophils % % Lymphocytes % % Monocytes % % Eosinophils % % Basophils % % Neutrophils # (1.3-7.7) k/uL Lymphocytes # (1.0-4.8) k/uL Monocytes # (0-1.0) k/uL Eosinophils # (0-0.7) k/uL Basophils # (0-0.2) k/uL PT (10.0-12.5) sec INR (<1.2) APTT (22.0-30.0) sec Sodium 138 (137-145) mmol/L Potassium 5.6 H (3.5-5.1) mmol/L Chloride 104 (98-107) mmol/L Carbon Dioxide 14 L (22-30) mmol/L Anion Gap 20 mmol/L BUN 11 (7-17) mg/dL Creatinine 0.56 (0.52-1.04) mg/dL Est GFR (CKD-EPI)AfAm >90 (>60 ml/min/1.73 sqM) Est GFR (CKD-EPI)NonAf >90 (>60 ml/min/1.73 sqM) Glucose 150 H (74-99) mg/dL Lactic Ac Sepsis Rflx Y Plasma Lactic Acid Ilya 2.7 H* (0.7-2.0) mmol/L Calcium 9.9 (8.4-10.2) mg/dL Total Bilirubin 1.5 H (0.2-1.3) mg/dL AST 39 H (14-36) U/L ALT 20 (4-34) U/L Alkaline Phosphatase 56 (38-126) U/L Total Protein 9.1 H (6.3-8.2) g/dL Albumin 5.7 H (3.5-5.0) g/dL Amylase 78 (30-110) U/L Lipase 50 (23-300) U/L Urine Color Urine Appearance (Clear) Urine pH (5.0-8.0) Ur Specific [place] (1.001-1.035) Urine Protein (Negative) Urine Glucose (UA) (Negative) Urine Ketones (Negative) Urine Blood (Negative) Urine Nitrite (Negative) Urine Bilirubin (Negative) Urine Urobilinogen (<2.0) mg/dL Ur Leukocyte Esterase (Negative) Urine RBC (0-5) /hpf Urine WBC (0-5) /hpf Ur Squamous Epith Cells (0-4) /hpf Hyaline Casts (0-2) /lpf Urine Mucus (None) /hpf Urine Yeast (Budding) (None) /hpf Urine HCG, Qual (Not Detectd) Influenza Type A (PCR) (Not Detectd) Influenza Type B (PCR) (Not Detectd) RSV (PCR) (Not Detectd) SARS-CoV-2 (PCR) (Not Detectd) 05/23/24 05/23/24 Range/Units 01:00 01:00 WBC (3.8-10.6) k/uL RBC (3.80-5.40) m/uL Hgb (11.4-16.0) gm/dL Hct (34.0-46.0) % MCV (80.0-100.0) fL MCH (25.0-35.0) pg MCHC (31.0-37.0) g/dL RDW (11.5-15.5) % Plt Count (150-450) k/uL MPV Neutrophils % % Lymphocytes % % Monocytes % % Eosinophils % % Basophils % % Neutrophils # (1.3-7.7) k/uL Lymphocytes # (1.0-4.8) k/uL Monocytes # (0-1.0) k/uL Eosinophils # (0-0.7) k/uL Basophils # (0-0.2) k/uL PT (10.0-12.5) sec INR (<1.2) APTT (22.0-30.0) sec Sodium (137-145) mmol/L Potassium (3.5-5.1) mmol/L Chloride (98-107) mmol/L Carbon Dioxide (22-30) mmol/L Anion Gap mmol/L BUN (7-17) mg/dL Creatinine (0.52-1.04) mg/dL Est GFR (CKD-EPI)AfAm (>60 ml/min/1.73 sqM) Est GFR (CKD-EPI)NonAf (>60 ml/min/1.73 sqM) Glucose (74-99) mg/dL Lactic Ac Sepsis Rflx Plasma Lactic Acid Ilya (0.7-2.0) mmol/L Calcium (8.4-10.2) mg/dL Total Bilirubin (0.2-1.3) mg/dL AST (14-36) U/L ALT (4-34) U/L Alkaline Phosphatase (38-126) U/L Total Protein (6.3-8.2) g/dL Albumin (3.5-5.0) g/dL Amylase (30-110) U/L Lipase (23-300) U/L Urine Color Yellow Urine Appearance Cloudy H (Clear) Urine pH 5.5 (5.0-8.0) Ur Specific [place] 1.035 (1.001-1.035) Urine Protein 1+ H (Negative) Urine Glucose (UA) Trace H (Negative) Urine Ketones 3+ H (Negative) Urine Blood Small H (Negative) Urine Nitrite Negative (Negative) Urine Bilirubin Negative (Negative) Urine Urobilinogen <2.0 (<2.0) mg/dL Ur Leukocyte Esterase Negative (Negative) Urine RBC 2 (0-5) /hpf Urine WBC 5 (0-5) /hpf Ur Squamous Epith Cells 2 (0-4) /hpf Hyaline Casts 4 H (0-2) /lpf Urine Mucus Many H (None) /hpf Urine Yeast (Budding) Rare H (None) /hpf Urine HCG, Qual Not Detected (Not Detectd) Influenza Type A (PCR) (Not Detectd) Influenza Type B (PCR) (Not Detectd) RSV (PCR) (Not Detectd) SARS-CoV-2 (PCR) (Not Detectd) - EKG Data -: EKG Interpreted by Me EKG Comments: 12-lead Electrocardiogram Interpretation Note EKG was reviewed and interpreted by myself. 12-lead ECG performed at 0030 is interpreted by me as revealing sinus bradycardia at a rate of 53 beats per minute. [place] is normal. OR interval is 139 ms, QRS duration is 93 ms, QTc is 413ms. There were no ST or T wave abnormalities to suggest myocardial ischemia or injury. R wave progression across the precordium was satisfactory. By my interpretation this EKG is non-diagnostic for acute ischemia. Disposition Clinical Impression: Dehydration, Nausea & vomiting, Hyperemesis Disposition: ADMITTED IP TO THIS HOSP Condition: Stable Time of Disposition: 03:43
[2024-05-23] MEDS: SODIUM CHLORIDE 0.9% 2,000 ML IV STA (00:11)
[2024-05-23 00:29] LABS: Basophils % (A) 0 %; Eosinophils % (A) 0 %; HCT 44.5 % (34.0-46.0); HGB 14.8 gm/dL (11.4-16.0); Lymphocytes # (A) 0.7 k/uL (1.0-4.8); Lymphocytes % (A) 7 %; MCH 28.5 pg (25.0-35.0); MCHC 33.2 g/dL (31.0-37.0); MCV 85.9 fL (80.0-100.0); Mean Platelet Volume 8.5; Monocytes # (A) 0.4 k/uL (0-1.0); Monocytes % (A) 4 %; Neutrophils # (A) 8.7 k/uL (1.3-7.7); Neutrophils % (A) 88 %; Platelet Count 280 k/uL (150-450); RBC 5.19 m/uL (3.80-5.40); RDW 12.8 % (11.5-15.5); WBC 9.9 k/uL (3.8-10.6)
[2024-05-23 00:49] LABS: Prothrombin Time 11.2 sec (10.0-12.5)
[2024-05-23 00:54] LABS: ALT 20 U/L (4-34); AST 39 U/L (14-36); African American GFR (CKD) >90 (>60 ml/min/1.73 sqM); Albumin 5.7 g/dL (3.5-5.0); Alkaline Phosphatase 56 U/L (38-126); Amylase 78 U/L (30-110); Anion Gap 20 mmol/L; Blood Urea Nitrogen 11 mg/dL (7-17); Calcium 9.9 mg/dL (8.4-10.2); Carbon Dioxide 14 mmol/L (22-30); Chloride 104 mmol/L (98-107); Glucose 150 mg/dL (74-99); Lipase 50 U/L (23-300); Non-African American GFR(CKD) >90 (>60 ml/min/1.73 sqM); Sodium 138 mmol/L (137-145); Total Bilirubin 1.5 mg/dL (0.2-1.3); Total Protein 9.1 g/dL (6.3-8.2)
[2024-05-23 00:57] LABS: Potassium 5.6 mmol/L (3.5-5.1)
[2024-05-23 01:07] LABS: Influenza A Not Detected (Not Detectd); Influenza B Not Detected (Not Detectd); RSV Not Detected (Not Detectd)
[2024-05-23 01:15] LABS: Appearance,Urine Cloudy (Clear); Bilirubin,Urine Negative (Negative); Blood,Urine Small (Negative); Budding Yeast,Urine Rare /hpf; Color,Urine Yellow; Glucose,Urine (UA) Trace (Negative); Hyaline Casts,Urine 4 /lpf (0-2); Ketones,Urine 3+ (Negative); Leukocyte Esterase,Urine Negative (Negative); Mucus,Urine Many /hpf; Nitrite,Urine Negative (Negative); PH, Urine 5.5 (5.0-8.0); Protein,Urine 1+ (Negative); RBC,Urine 2 /hpf (0-5); Specific Gravity,Urine 1.035 (1.001-1.035); Squamous Epithelial Cell,Urine 2 /hpf (0-4); Urobilinogen,Urine <2.0 mg/dL (<2.0); WBC,Urine 5 /hpf (0-5)
[2024-05-23] MEDS ORDERED: NALOXONE 0.4 MG/ML 1 ML VIAL IV PRN (03:41)
[2024-05-23] MEDS: HYDROmorphone 1 MG/ML 1 ML SYRINGE IVP STA (03:57)
[2024-05-23] MEDS: SODIUM CHLORIDE 0.9% 1,000 ML IV STA (04:16)
[2024-05-23] MEDS: HYDROmorphone 0.5 MG/0.5 ML SYRINGE IVP PRN (11:10)
[2024-05-23] MEDS ORDERED: MORPHINE SULFATE 2 MG/ML SYRINGE IM PRN (11:12)
[2024-05-23] MEDS: PANTOPRAZOLE 40 MG/10 ML VIAL IV SCH (11:13)
[2024-05-23] MEDS: SYMBICORT 160-4.5 MCG INHALER INHALATION SCH (11:36)
[2024-05-23] MEDS: ONDANSETRON 4 MG/2 ML VIAL IVP PRN (12:41)
[2024-05-23] MEDS: ENOXAPARIN 40 MG/0.4 ML SYRINGE SQ SCH (12:42)
[2024-05-23] MEDS ORDERED: DEXTROSE 5%-0.9% NACL 1,000 ML IV SCH (15:45)
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
[2024-05-23] MEDS: DEXTROSE 5% IN WATER 1,000 ML with SODIUM BICARB (1 MEQ/ML) 100 ML IV SCH (17:24)
[2024-05-23] MEDS: KETOROLAC 15 MG/ML 1 ML VIAL IVP PRN (18:34)
[2024-05-23] MEDS: ACETAMINOPHEN TAB 325 MG TAB PO PRN (19:59)
[2024-05-24] MEDS: LACTATED RINGERS 1,000 ML IV SCH (05:45)
[2024-05-24 06:58] LABS: Basophils % (A) 0 %; Eosinophils % (A) 0 %; HCT 39.6 % (34.0-46.0); HGB 13.3 gm/dL (11.4-16.0); Lymphocytes # (A) 1.3 k/uL (1.0-4.8); Lymphocytes % (A) 14 %; MCH 29.2 pg (25.0-35.0); MCHC 33.7 g/dL (31.0-37.0); MCV 86.6 fL (80.0-100.0); Mean Platelet Volume 8.4; Monocytes # (A) 0.5 k/uL (0-1.0); Monocytes % (A) 5 %; Neutrophils # (A) 7.5 k/uL (1.3-7.7); Neutrophils % (A) 80 %; Platelet Count 237 k/uL (150-450); RBC 4.57 m/uL (3.80-5.40); RDW 12.2 % (11.5-15.5); WBC 9.5 k/uL (3.8-10.6)
[2024-05-24 07:11] LABS: ALT 15 U/L (4-34); AST 18 U/L (14-36); African American GFR (CKD) >90 (>60 ml/min/1.73 sqM); Albumin 4.4 g/dL (3.5-5.0); Alkaline Phosphatase 59 U/L (38-126); Anion Gap 13 mmol/L; Blood Urea Nitrogen 6 mg/dL (7-17); Calcium 8.9 mg/dL (8.4-10.2); Carbon Dioxide 23 mmol/L (22-30); Chloride 97 mmol/L (98-107); Glucose 127 mg/dL (74-99); Non-African American GFR(CKD) >90 (>60 ml/min/1.73 sqM); Potassium 3.4 mmol/L (3.5-5.1); Sodium 133 mmol/L (137-145); Total Bilirubin 0.6 mg/dL (0.2-1.3); Total Protein 6.8 g/dL (6.3-8.2)
[2024-05-24 07:35] VITALS: BP 111/73; PULSE 79; RESP 17; TEMP 98.5
[2024-05-24] MEDS: SCOPOLAMINE 1 MG/72 HR PATCH TRANSDERM SCH (09:00)
[2024-05-24] MEDS: PROCHLORPERAZINE INJ 10 MG/2 ML VIAL IVP PRN (09:57)
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
== END 2024-05-24 13:12 | disposition home or self-care (01) ==
LOC: EC 23:38 → 1SOBS 05-23 03:42
PROVIDERS: ADMIT Hospitalist; ATTEND Hospitalist
DX: R11.15 Cyclical vomiting syndrome unrelated to migraine (principal); E86.0 Dehydration; E87.29 Other acidosis; K44.9 Diaphragmatic hernia without obstruction or gangrene; R10.13 Epigastric pain; G89.29 Other chronic pain; R00.1 Bradycardia, unspecified; M25.50 Pain in unspecified joint; F12.10 Cannabis abuse, uncomplicated; R17 Unspecified jaundice; Z79.51 Long term (current) use of inhaled steroids; Z79.899 Other long term (current) drug therapy; Z88.5 Allergy status to narcotic agent; Z88.8 Allergy status to other drugs, medicaments and biological substances; Z11.52 Encounter for screening for COVID-19; Z11.59 Encounter for screening for other viral diseases; Z90.49 Acquired absence of other specified parts of digestive tract; Z87.828 Personal history of other (healed) physical injury and trauma
CPT/HCPCS: 96372 ×2; 96375 ×2; 96376 ×3; 96374; 99285; 36415; 94640 ×2; 93005; 80053 ×2; 82150; 83605; 83690; 85025 ×2; 85610; 85730; 81001; 81025; 87636; G0378 ×2; J0780; J2405 ×2; J1650 ×2; J1171 ×2; J2470 ×2

== ENCOUNTER 2024-05-25 04:37 | Emergency (ER) | payer OTHER ==
[2024-05-25 04:45] VITALS: RESP 16
--- NOTE | 2024-05-25 06:19 | ED ---
Abdominal Pain HPI - General Chief Complaint: Abdominal Pain Stated Complaint: NVD abd pain Time Seen by Provider: 05/25/24 05:02 Source: patient, RN notes reviewed, old records reviewed Mode of arrival: ambulatory Limitations: no limitations - History of Present Illness Initial Comments: Patient is a 28-year-old female presented to the ER for evaluation of abdominal pain. Patient frequents the ER for this and was recently admitted and discharged yesterday after a 2 night stay for pain control. Patient states she was discharged around 1pm and has been having worsening pain since then. She was not discharged with any pain medications. Patient also with endorsing nausea and vomiting. She has not taken anything for symptoms at this time. No fevers, chills, chest pain, shortness of breath, urinary complaints, constipation/diarrhea or peripheral edema. Patient reports her pain is typical for her abdominal pain. No other complaints. - Related Data Home Medications Medication Instructions Recorded Confirmed Budesonide-Formot 160-4.5 Mcg 2 puff INHALATION RT-BID 05/23/24 05/23/24 [Symbicort 160-4.5 Mcg Inhaler] Famotidine [Pepcid] 20 mg PO BID 05/23/24 05/23/24 HYDROcodone/APAP 5-325MG [[place] 1 tab PO BID 05/23/24 05/23/24 5-325] Previous Rx's Medication Instructions Recorded Ondansetron Odt [Zofran ODT] 8 mg PO Q8HR #30 tab 02/13/24 Acetaminophen Tab [Tylenol] 650 mg PO Q6HR PRN tab 05/24/24 Scopolamine 1 mg/72 Hr Patch 1 patch TRANSDERM Q72H patch 05/24/24 [TransDerm Scop] Allergies Allergy/AdvReac Type Severity Reaction Status Date / Time ketorolac [From Toradol] Allergy Unknown Verified 05/25/24 04:45 metoclopramide [From Reglan] Allergy Unknown Verified 05/25/24 04:45 morphine Allergy Unknown Verified 05/25/24 04:45 Review of Systems ROS Statement: Those systems with pertinent positive or pertinent negative responses have been documented in the HPI. ROS Other: All systems not noted in ROS Statement are negative. Past Medical History Past Medical History: GERD/Reflux Additional Past Medical History / Comment(s): MIGRAINES, BACK PAIN. 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 No other history of STDs. Pancreatitis. History of Any Multi-Drug Resistant Organisms: None Reported Past Surgical History: Cholecystectomy, Hernia Repair Additional Past Surgical History / Comment(s): Hiatal hernia repair. Past Anesthesia/Blood Transfusion Reactions: Motion Sickness Additional Past Anesthesia/Blood Transfusion Reaction / Comment(s): NO ANESTHESIA HX Past Psychological History: Anxiety Smoking Status: Never smoker Past Alcohol Use History: Occasional Past Drug Use History: Marijuana - Past Family History Mother Family Medical History: No Reported History Additional Family Medical History / Comment(s): Maternal grandmother had colon cancer. A maternal great grandmother had breast cancer. Father Family Medical History: Hypertension General Exam Limitations: no limitations General appearance: alert, in no apparent distress Respiratory exam: Present: normal lung sounds bilaterally. Absent: respiratory distress, wheezes, rales, rhonchi, stridor Cardiovascular Exam: Present: regular rate, normal rhythm, normal heart sounds. Absent: systolic murmur, diastolic murmur, rubs, gallop, clicks GI/Abdominal exam: Present: soft, tenderness (Generalized), normal bowel sounds Neurological exam: Present: alert, oriented X3, CN II-XII intact Skin exam: Present: warm, dry, intact, normal color. Absent: rash Course Vital Signs 05/25/24 05/25/24 04:40 08:50 Temperature 98.1 F 98.2 F Pulse Rate 61 62 Respiratory 16 16 Rate Blood Pressure 135/86 113/63 O2 Sat by Pulse 100 100 Oximetry - Reevaluation(s) Reevaluation #1: 05/25/24 07:45 Patient reevaluated. No signs of acute distress. Patient reporting improvement of pain. Medical Decision Making - Medical Decision Making Was pt. sent in by a medical professional or institution (, PA, [employer]IATE, urgent care, hospital, or intermediate...) When possible be specific @ -No Did you speak to anyone other than the patient for history (EMS, parent, family, police, friend...)? What history was obtained from this source @ -No Did you review nursing and triage notes (agree or disagree)? Why? @ -I reviewed and agree with nursing and triage notes Were old charts reviewed (outside hosp., previous admission, EMS record, old EKG, old radiological studies, urgent care reports/EKG's, intermediate records)? Report findings @ -I reviewed medical records and admission from 05 23 24. Differential Diagnosis (chest pain, altered mental status, abdominal pain women, abdominal pain men, vaginal bleeding, weakness, fever, dyspnea, syncope, headache, dizziness, GI bleed, back pain, seizure, CVA, palpatations, mental health, musculoskeletal)? @ -Differential Abdominal Pain Women: Appendicitis, Cholecystitis, diverticul osis, ischemic bowel, pancreatitis, hepatitis, UTI, gastroenteritis, AAA, incarcerated hernia, bowel obstruction, constipation, inflammatory bowel, hepatitis, peptic ulcer disease, splenic infarction, perforated viscus, vulvitis, ovarian torsion, PID, kidney stone, placenta abruption, this is not me ant to be an all-inclusive list EKG interpreted by me (3pts min.). @ -None done X-rays interpreted by me (1pt min.). @ -None done CT interpreted by me (1pt min.). @ -None done U/S interpreted by me (1pt. min.). @ -None done What testing was considered but not performed or refused? (CT, X-rays, U/S, labs)? Why? @ -CT imaging considered but not performed. Patient states her pain is typical for her chronic abdominal pain. She would like to avoid further radiation as she has had numerous scans in the past. What meds were considered but not given or refused? Why? @ -None Did you discuss the management of the patient with other professionals (professionals i.e. , PA, [employer] ASSOCIATE, lab, RT, psych nurse, social media community manager, wedding coordinator, teacher, strike warfare/missile systems officer, correctional counselor/case manager)? Give summary @ -No Was smoking cessation discussed for >3mins.? @ -No Was critical care preformed (if so, how long)? @ -No Were there social determinants of health that impacted care today? How? (Homelessness, low income, unemployed, alcoholism, drug addiction, transportation, low edu. Level, literacy, decrease access to med. care, shelter, rehab)? @ -No Was there de-escalation of care discussed even if they declined (Discuss DNR or withdrawal of care, Hospice)? DNR status @ -No What co-morbidities impacted this encounter? (DM, HTN, Smoking, COPD, CAD, Cancer, CVA, ARF, Chemo, Hep., AIDS, mental health diagnosis, sleep apnea, morbid obesity)? @ -Chronic abdominal pain Was patient admitted / discharged? Hospital course, mention meds given and route, prescriptions, significant lab abnormalities, going to OR and other pertinent info. @ -Discharged. 28 year old female presenting to the ER for evaluation of abdominal pain. Upon rooming, history and physical exam completed. Vitals within acceptable limits. Patient in no signs of acute distress nontoxic- appearing. Laboratory studies obtained unimpressive. Urinalysis concerning of dehydration with 2+ ketones and trace proteins for which patient received IV fluids. hCG negative. Symptomatic treatment in the ER with IV Pepcid, Zofran and Dilaudid with improvement. Upon reevaluation, patient reporting improvement of pain and is eager for discharge. I advised her to follow-up closely with PCP. Strict return parameters discussed. Patient discharged stable condition. Patient verbally expressed understanding agree with care plan. Case discussed with ED attending, Dr. Boykin. Undiagnosed new problem with uncertain prognosis? @ -No Drug Therapy requiring intensive monitoring for toxicity (Heparin, Nitro, Insulin, Cardizem)? @ -No Were any procedures done? @ -No Diagnosis/symptom? @ -Abdominal pain Acute, or Chronic, or Acute on Chronic? @ -Chronic Uncomplicated (without systemic symptoms) or Complicated (systemic symptoms)? @ -Uncomplicated Side effects of treatment? @ -No Exacerbation, Progression, or Severe Exacerbation? @ -No Poses a threat to life or bodily function? How? (Chest pain, USA, VT, pneumonia, PE, COPD, DKA, ARF, appy, cholecystitis, CVA, Diverticulitis, Homicidal, Suicidal, threat to staff... and all critical care pts) @ -No - Lab Data Result diagrams: 05/25/24 06:21 05/25/24 06:21 Lab Results 05/25/24 05/25/24 05/25/24 Range/Units 06:21 06:21 06:21 WBC 8.8 (3.8-10.6) k/uL RBC 4.99 (3.80-5.40) m/uL Hgb 14.4 (11.4-16.0) gm/dL Hct 43.0 (34.0-46.0) % MCV 86.2 (80.0-100.0) fL MCH 28.9 (25.0-35.0) pg MCHC 33.5 (31.0-37.0) g/dL RDW 12.1 (11.5-15.5) % Plt Count 248 (150-450) k/uL MPV 8.3 Neutrophils % 71 % Lymphocytes % 21 % Monocytes % 7 % Eosinophils % 0 % Basophils % 0 % Neutrophils # 6.3 (1.3-7.7) k/uL Lymphocytes # 1.8 (1.0-4.8) k/uL Monocytes # 0.6 (0-1.0) k/uL Eosinophils # 0.0 (0-0.7) k/uL Basophils # 0.0 (0-0.2) k/uL Sodium 136 L (137-145) mmol/L Potassium 3.5 (3.5-5.1) mmol/L Chloride 99 (98-107) mmol/L Carbon Dioxide 23 (22-30) mmol/L Anion Gap 14 mmol/L BUN 9 (7-17) mg/dL Creatinine 0.71 (0.52-1.04) mg/dL Est GFR (CKD-EPI)AfAm >90 (>60 ml/min/1.73 sqM) Est GFR (CKD-EPI)NonAf >90 (>60 ml/min/1.73 sqM) Glucose 92 (74-99) mg/dL Plasma Lactic Acid [place] 1.0 (0.7-2.0) mmol/L Calcium 9.4 (8.4-10.2) mg/dL Total Bilirubin 0.8 (0.2-1.3) mg/dL AST 20 (14-36) U/L ALT 16 (4-34) U/L Alkaline Phosphatase 62 (38-126) U/L Total Protein 7.2 (6.3-8.2) g/dL Albumin 4.6 (3.5-5.0) g/dL Amylase 85 (30-110) U/L Lipase 186 (23-300) U/L Urine Color Urine Appearance (Clear) Urine pH (5.0-8.0) Ur Specific [place] (1.001-1.035) Urine Protein (Negative) Urine Glucose (UA) (Negative) Urine Ketones (Negative) Urine Blood (Negative) Urine Nitrite (Negative) Urine Bilirubin (Negative) Urine Urobilinogen (<2.0) mg/dL Ur Leukocyte Esterase (Negative) Urine RBC (0-5) /hpf Urine WBC (0-5) /hpf Ur Squamous Epith Cells (0-4) /hpf Urine Bacteria (None) /hpf Urine Mucus (None) /hpf Urine HCG, Qual (Not Detectd) 05/25/24 05/25/24 Range/Units 07:44 07:44 WBC (3.8-10.6) k/uL RBC (3.80-5.40) m/uL Hgb (11.4-16.0) gm/dL Hct (34.0-46.0) % MCV (80.0-100.0) fL MCH (25.0-35.0) pg MCHC (31.0-37.0) g/dL RDW (11.5-15.5) % Plt Count (150-450) k/uL MPV Neutrophils % % Lymphocytes % % Monocytes % % Eosinophils % % Basophils % % Neutrophils # (1.3-7.7) k/uL Lymphocytes # (1.0-4.8) k/uL Monocytes # (0-1.0) k/uL Eosinophils # (0-0.7) k/uL Basophils # (0-0.2) k/uL Sodium (137-145) mmol/L Potassium (3.5-5.1) mmol/L Chloride (98-107) mmol/L Carbon Dioxide (22-30) mmol/L Anion Gap mmol/L BUN (7-17) mg/dL Creatinine (0.52-1.04) mg/dL Est GFR (CKD-EPI)AfAm (>60 ml/min/1.73 sqM) Est GFR (CKD-EPI)NonAf (>60 ml/min/1.73 sqM) Glucose (74-99) mg/dL Plasma Lactic Acid Ilya (0.7-2.0) mmol/L Calcium (8.4-10.2) mg/dL Total Bilirubin (0.2-1.3) mg/dL AST (14-36) U/L ALT (4-34) U/L Alkaline Phosphatase (38-126) U/L Total Protein (6.3-8.2) g/dL Albumin (3.5-5.0) g/dL Amylase (30-110) U/L Lipase (23-300) U/L Urine Color Yellow Urine Appearance Cloudy H (Clear) Urine pH 7.5 (5.0-8.0) Ur Specific [place] 1.020 (1.001-1.035) Urine Protein Trace H (Negative) Urine Glucose (UA) Negative (Negative) Urine Ketones 2+ H (Negative) Urine Blood Negative (Negative) Urine Nitrite Negative (Negative) Urine Bilirubin Negative (Negative) Urine Urobilinogen 4.0 (<2.0) mg/dL Ur Leukocyte Esterase Negative (Negative) Urine RBC 1 (0-5) /hpf Urine WBC 2 (0-5) /hpf Ur Squamous Epith Cells 2 (0-4) /hpf Urine Bacteria Few H (None) /hpf Urine Mucus Many H (None) /hpf Urine HCG, Qual Not Detected (Not Detectd) Disposition Clinical Impression: Abdominal pain Disposition: HOME SELF-CARE Condition: Stable Instructions (If sedation given, give patient instructions): Abdominal Pain (ED) Additional Instructions: Follow-up with PCP. Return to the ER for any new or worsening symptoms. Is patient prescribed a controlled substance at d/c from ED?: No Referrals: Terry Rivera MD [Primary Care Provider] - 1-2 days Time of Disposition: 08:44
[2024-05-25] MEDS: SODIUM CHLORIDE 0.9% 1,000 ML IV STA (06:20)
[2024-05-25] MEDS: HYDROmorphone 1 MG/ML 1 ML SYRINGE IVP STA (06:54)
[2024-05-25] MEDS: ONDANSETRON 4 MG/2 ML VIAL IVP STA (06:56)
[2024-05-25] MEDS: FAMOTIDINE 20 MG/2 ML VIAL IV STA (06:57)
[2024-05-25 07:18] LABS: Basophils % (A) 0 %; Eosinophils % (A) 0 %; HGB 14.4 gm/dL (11.4-16.0); Lymphocytes # (A) 1.8 k/uL (1.0-4.8); Lymphocytes % (A) 21 %; MCH 28.9 pg (25.0-35.0); MCHC 33.5 g/dL (31.0-37.0); MCV 86.2 fL (80.0-100.0); Mean Platelet Volume 8.3; Monocytes # (A) 0.6 k/uL (0-1.0); Monocytes % (A) 7 %; Neutrophils # (A) 6.3 k/uL (1.3-7.7); Neutrophils % (A) 71 %; Platelet Count 248 k/uL (150-450); RBC 4.99 m/uL (3.80-5.40); RDW 12.1 % (11.5-15.5); WBC 8.8 k/uL (3.8-10.6)
[2024-05-25 07:37] LABS: ALT 16 U/L (4-34); AST 20 U/L (14-36); African American GFR (CKD) >90 (>60 ml/min/1.73 sqM); Albumin 4.6 g/dL (3.5-5.0); Alkaline Phosphatase 62 U/L (38-126); Amylase 85 U/L (30-110); Anion Gap 14 mmol/L; Blood Urea Nitrogen 9 mg/dL (7-17); Calcium 9.4 mg/dL (8.4-10.2); Carbon Dioxide 23 mmol/L (22-30); Chloride 99 mmol/L (98-107); Glucose 92 mg/dL (74-99); Lipase 186 U/L (23-300); Non-African American GFR(CKD) >90 (>60 ml/min/1.73 sqM); Potassium 3.5 mmol/L (3.5-5.1); Sodium 136 mmol/L (137-145); Total Bilirubin 0.8 mg/dL (0.2-1.3); Total Protein 7.2 g/dL (6.3-8.2)
[2024-05-25 08:09] LABS: Appearance,Urine Cloudy (Clear); Bacteria,Urine Few /hpf; Bilirubin,Urine Negative (Negative); Blood,Urine Negative (Negative); Color,Urine Yellow; Glucose,Urine (UA) Negative (Negative); Ketones,Urine 2+ (Negative); Leukocyte Esterase,Urine Negative (Negative); Mucus,Urine Many /hpf; Nitrite,Urine Negative (Negative); PH, Urine 7.5 (5.0-8.0); Protein,Urine Trace (Negative); RBC,Urine 1 /hpf (0-5); Squamous Epithelial Cell,Urine 2 /hpf (0-4); WBC,Urine 2 /hpf (0-5)
[2024-05-25 08:52] VITALS: BP 113/63; PULSE 62; TEMP 98.2
== END 2024-05-25 08:52 | disposition home or self-care (01) ==
LOC: EC 04:37
DX: G89.29 Other chronic pain (principal); R10.84 Generalized abdominal pain; R11.2 Nausea with vomiting, unspecified; Z88.5 Allergy status to narcotic agent; Z88.6 Allergy status to analgesic agent; Z88.8 Allergy status to other drugs, medicaments and biological substances
CPT/HCPCS: 36415; 80053; 82150; 83605; 83690; 85025; 81001; 81025; 99284; 96374; 96375 ×2; 96361; J2405; J3490; J1171

== ENCOUNTER 2024-07-11 22:28 | Emergency (ER) | payer OTHER ==
--- NOTE | 2024-07-11 23:43 | ED ---
General Adult HPI - General Chief complaint: Abdominal Pain Stated complaint: Vomiting, abd pain Time Seen by Provider: 07/11/24 23:24 Source: patient, RN notes reviewed Mode of arrival: ambulatory Limitations: no limitations - History of Present Illness Initial comments: 28-year-old female presents to the emergency department for evaluation of nausea, vomiting, abdominal pain. Reports that her abdominal pain is in the upper abdomen. Patient reports that she has a history of similar symptoms. She notes that her symptoms today are similar to what she is experienced in the past. She has not tried anything at home to help relieve her symptoms. She denies any known fever, chills. Denies any dysuria, hematuria. - Related Data Home Medications Medication Instructions Recorded Confirmed Budesonide-Formot 160-4.5 Mcg 2 puff INHALATION RT-BID 05/23/24 05/23/24 [Symbicort 160-4.5 Mcg Inhaler] Famotidine [Pepcid] 20 mg PO BID 05/23/24 05/23/24 HYDROcodone/APAP 5-325MG [[place] 1 tab PO BID 05/23/24 05/23/24 5-325] Previous Rx's Medication Instructions Recorded Ondansetron Odt [Zofran ODT] 8 mg PO Q8HR #30 tab 02/13/24 Acetaminophen Tab [Tylenol] 650 mg PO Q6HR PRN tab 05/24/24 Scopolamine 1 mg/72 Hr Patch 1 patch TRANSDERM Q72H patch 05/24/24 [TransDerm Scop] Allergies Allergy/AdvReac Type Severity Reaction Status Date / Time ketorolac [From Toradol] Allergy Unknown Verified 07/11/24 22:34 metoclopramide [From Reglan] Allergy Unknown Verified 07/11/24 22:34 morphine Allergy Unknown Verified 07/11/24 22:34 Review of Systems ROS Statement: Those systems with pertinent positive or pertinent negative responses have been documented in the HPI. ROS Other: All systems not noted in ROS Statement are negative. Past Medical History Past Medical History: GERD/Reflux Additional Past Medical History / Comment(s): MIGRAINES, BACK PAIN. 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 No other history of STDs. Pancreatitis. History of Any Multi-Drug Resistant Organisms: None Reported Past Surgical History: Cholecystectomy, Hernia Repair Additional Past Surgical History / Comment(s): Hiatal hernia repair. Past Anesthesia/Blood Transfusion Reactions: Motion Sickness Additional Past Anesthesia/Blood Transfusion Reaction / Comment(s): NO ANESTHESIA HX Past Psychological History: Anxiety Smoking Status: Never smoker Past Alcohol Use History: Occasional Past Drug Use History: Marijuana - Past Family History Mother Family Medical History: No Reported History Additional Family Medical History / Comment(s): Maternal grandmother had colon cancer. A maternal great grandmother had breast cancer. Father Family Medical History: Hypertension General Exam Limitations: no limitations General appearance: alert, in no apparent distress Head exam: Present: atraumatic, normocephalic, normal inspection Eye exam: Present: normal appearance, PERRL, EOMI. Absent: scleral icterus, conjunctival injection, periorbital swelling ENT exam: Present: normal exam, mucous membranes moist Respiratory exam: Present: normal lung sounds bilaterally. Absent: respiratory distress, wheezes, rales, rhonchi, stridor Cardiovascular Exam: Present: regular rate, normal rhythm, normal heart sounds. Absent: systolic murmur, diastolic murmur, rubs, gallop, clicks GI/Abdominal exam: Present: soft, tenderness (Nonfocal tenderness in the upper abdomen), normal bowel sounds. Absent: distended, guarding, rebound, rigid Extremities exam: Present: normal inspection, full ROM, normal capillary refill. Absent: tenderness, pedal edema, joint swelling, calf tenderness Back exam: Present: normal inspection Neurological exam: Present: alert, oriented X3 Psychiatric exam: Present: normal affect, normal mood Skin exam: Present: warm, dry, intact, normal color. Absent: rash Course Vital Signs 07/11/24 07/12/24 07/12/24 22:32 00:37 01:35 Temperature 97.9 F 99.6 F Pulse Rate 59 L 49 L 101 H Respiratory 16 Rate Blood Pressure 149/77 93/53 104/70 O2 Sat by Pulse 98 100 100 Oximetry 07/12/24 07/12/24 03:12 04:44 Temperature 99.4 F Pulse Rate 72 83 Respiratory 16 18 Rate Blood Pressure 101/64 105/59 O2 Sat by Pulse 100 99 Oximetry Medical Decision Making - Medical Decision Making Was pt. sent in by a medical professional or institution (, PA, [employer], urgent care, hospital, or residential...) When possible be specific @ -No Did you speak to anyone other than the patient for history (EMS, parent, family, police, friend...)? What history was obtained from this source @ -No Did you review nursing and triage notes (agree or disagree)? Why? @ -I reviewed and agree with nursing and triage notes Were old charts reviewed (outside hosp., previous admission, EMS record, old EK G, old radiological studies, urgent care reports/EKG's, residential records)? Report findings @ -No old charts were reviewed Differential Diagnosis (chest pain, altered mental status, abdominal pain women, abdominal pain men, vaginal bleeding, weakness, fever, dyspnea, syncope, headache, dizziness, GI bleed, back pain, seizure, CVA, palpatations, mental health, musculoskeletal)? @ -Differential Abdominal Pain Women: Appendicitis, Cholecystitis, diverticulosis, ischemic bowel, pancreatitis, hepatitis, UTI, gastroenteritis, AAA, incarcerated hernia, bowel obstruction, constipation, inflammatory bowel, hepatitis, peptic ulcer disease, splenic infarction, perforated viscus, vulvitis, ovarian torsion, PID, kidney stone, placenta abruption, this is not meant to be an all-inclusive list EKG interpreted by me (3pts min.). @ -None X-rays interpreted by me (1pt min.). @ -None done CT interpreted by me (1pt min.). @ -None done U/S interpreted by me (1pt. min.). @ -None done What testing was considered but not performed or refused? (CT, X-rays, U/S, labs)? Why? @ -None What meds were considered but not given or refused? Why? @ -None Did you discuss the management of the patient with other professionals (professionals i.e. , PA, [employer], lab, RT, psych nurse, social work therapist, customer success specialist, t eacher, zoology technical officer, case therapist)? Give summary @ -No Was smoking cessation discussed for >3mins.? @ -No Was critical care preformed (if so, how long)? @ -No Were there social determinants of health that impacted care today? How? (Homelessness, low income, unemployed, alcoholism, drug addiction, transportation, low edu. Level, literacy, decrease access to med. care, shelter, rehab)? @ -No Was there de-escalation of care discussed even if they declined (Discuss DNR or withdrawal of care, Hospice)? DNR status @ -No What co-morbidities impacted this encounter? (DM, HTN, Smoking, COPD, CAD, Cancer, CVA, ARF, Chemo, Hep., AIDS, mental health diagnosis, sleep apnea, morbid obesity)? @ -None Was patient admitted / discharged? Hospital course, mention meds given and route, prescriptions, significant lab abnormalities, going to OR and other pertinent info. @ -Patient presented the emergency department for evaluation of nausea vomiting. Laboratory studies obtainedNo significant leukocytosis, hemoglobin 14.2; CMP shows sodium, potassium within normal limits UA shows 1+ protein, 1+ glucose, 2+ ketones, small blood. Patient was provided fluid hydration in the emergency department with 2 L of normal saline. She was also administered antiemetics and medication for pain control in the emergency department. Upon my reevaluation states still reports nausea and therefore was administered an additional antiemetic. She reports improvement in her symptoms following this. She will be discharged home. She is understanding agreeable with plan. Patient stable at time of discharge. Case discussed with Dr. Mcmillan. Undiagnosed new problem with uncertain prognosis? @ -No Drug Therapy requiring intensive monitoring for toxicity (Heparin, Nitro, Insulin, Cardizem)? @ -No Were any procedures done? @ -No Diagnosis/symptom? @ -Nausea and vomiting, abdominal pain Acute, or Chronic, or Acute on Chronic? @ -Acute Uncomplicated (without systemic symptoms) or Complicated (systemic symptoms)? @ -Uncomplicated Side effects of treatment? @ -No Exacerbation, Progression, or Severe Exacerbation? @ -No Poses a threat to life or bodily function? How? (Chest pain, USA, ID, pneumonia, PE, COPD, DKA, ARF, appy, cholecystitis, CVA, Diverticulitis, Homicidal, Suicidal, threat to staff... and all critical care pts) @ -No - Lab Data Result diagrams: 07/12/24 00:34 07/12/24 00:34 Lab Results 07/12/24 07/12/24 07/12/24 Range/Units 00:34 00:34 02:45 WBC 8.29 (4.50-10.00) 10*3/uL RBC 4.79 (4.10-5.20) 10*6/uL Hgb 14.2 (12.0-15.0) g/dL Hct 40.5 (37.2-46.3) % MCV 84.6 (80.0-97.0) fL MCH 29.6 (27.0-32.0) pg MCHC 35.1 (32.0-37.0) g/dL Plt Count 180 (140-440) 10*3/uL MPV 12.3 H (9.5-12.2) fL Immature Gran % (Auto) 0.2 % Neutrophils % 89.2 % Lymphocytes % 6.5 % Monocytes % 4.0 % Eosinophils % 0.0 % Basophils % 0.1 % Immature Gran # 0.02 (0.00-0.04) 10*3/uL Neutrophils # 7.39 (1.80-7.70) 10*3/uL Lymphocytes # 0.54 L (0.90-5.00) 10*3/uL Monocytes # 0.33 (0.20-1.00) 10*3/uL Eosinophils # 0.00 L (0.04-0.35) 10*3/uL Basophils # 0.01 (0.00-0.10) 10*3/uL Sodium 139 (137-145) mmol/L Potassium 4.3 (3.5-5.1) mmol/L Chloride 102 (98-107) mmol/L Carbon Dioxide 22 (22-30) mmol/L Anion Gap 15 mmol/L BUN 11 (7-17) mg/dL Creatinine 0.59 (0.52-1.04) mg/dL Est GFR (CKD-EPI)AfAm >90 (>60 ml/min/1.73 sqM) Est GFR (CKD-EPI)NonAf >90 (>60 ml/min/1.73 sqM) Glucose 135 H (74-99) mg/dL Calcium 10.4 H (8.4-10.2) mg/dL Total Bilirubin 0.8 (0.2-1.3) mg/dL AST 22 (14-36) U/L ALT 16 (4-34) U/L Alkaline Phosphatase 58 (38-126) U/L Total Protein 8.3 H (6.3-8.2) g/dL Albumin 5.2 H (3.5-5.0) g/dL Amylase 89 (30-110) U/L Lipase 107 (23-300) U/L Urine Color Yellow Urine Appearance Cloudy H (Clear) Urine pH 6.0 (5.0-8.0) Ur Specific [place] 1.035 (1.001-1.035) Urine Protein 1+ H (Negative) Urine Glucose (UA) 1+ H (Negative) Urine Ketones 2+ H (Negative) Urine Blood Small H (Negative) Urine Nitrite Negative (Negative) Urine Bilirubin Negative (Negative) Urine Urobilinogen <2.0 (<2.0) mg/dL Ur Leukocyte Esterase Negative (Negative) Urine RBC 8 H (0-5) /hpf Urine WBC 2 (0-5) /hpf Ur Squamous Epith Cells 3 (0-4) /hpf Urine Bacteria Occasional H (None) /hpf Urine Mucus Many H (None) /hpf Urine HCG, Qual (Not Detectd) 07/12/24 Range/Units 02:45 WBC (4.50-10.00) 10*3/uL RBC (4.10-5.20) 10*6/uL Hgb (12.0-15.0) g/dL Hct (37.2-46.3) % MCV (80.0-97.0) fL MCH (27.0-32.0) pg MCHC (32.0-37.0) g/dL Plt Count (140-440) 10*3/uL MPV (9.5-12.2) fL Immature Gran % (Auto) % Neutrophils % % Lymphocytes % % Monocytes % % Eosinophils % % Basophils % % Immature Gran # (0.00-0.04) 10*3/uL Neutrophils # (1.80-7.70) 10*3/uL Lymphocytes # (0.90-5.00) 10*3/uL Monocytes # (0.20-1.00) 10*3/uL Eosinophils # (0.04-0.35) 10*3/uL Basophils # (0.00-0.10) 10*3/uL Sodium (137-145) mmol/L Potassium (3.5-5.1) mmol/L Chloride (98-107) mmol/L Carbon Dioxide (22-30) mmol/L Anion Gap mmol/L BUN (7-17) mg/dL Creatinine (0.52-1.04) mg/dL Est GFR (CKD-EPI)AfAm (>60 ml/min/1.73 sqM) Est GFR (CKD-EPI)NonAf (>60 ml/min/1.73 sqM) Glucose (74-99) mg/dL Calcium (8.4-10.2) mg/dL Total Bilirubin (0.2-1.3) mg/dL AST (14-36) U/L ALT (4-34) U/L Alkaline Phosphatase (38-126) U/L Total Protein (6.3-8.2) g/dL Albumin (3.5-5.0) g/dL Amylase (30-110) U/L Lipase (23-300) U/L Urine Color Urine Appearance (Clear) Urine pH (5.0-8.0) Ur Specific [place] (1.001-1.035) Urine Protein (Negative) Urine Glucose (UA) (Negative) Urine Ketones (Negative) Urine Blood (Negative) Urine Nitrite (Negative) Urine Bilirubin (Negative) Urine Urobilinogen (<2.0) mg/dL Ur Leukocyte Esterase (Negative) Urine RBC (0-5) /hpf Urine WBC (0-5) /hpf Ur Squamous Epith Cells (0-4) /hpf Urine Bacteria (None) /hpf Urine Mucus (None) /hpf Urine HCG, Qual Not Detected (Not Detectd) Disposition Clinical Impression: Nausea and vomiting Disposition: HOME SELF-CARE Condition: Stable Instructions (If sedation given, give patient instructions): Acute Nausea and Vomiting (ED) Additional Instructions: Please follow-up with your doctor. Return to the emergency department for new or worsening symptoms. Is patient prescribed a controlled substance at d/c from ED?: No Referrals: Terry Rivera MD [Primary Care Provider] - 1-2 days
[2024-07-12] MEDS: SODIUM CHLORIDE 0.9% 1,000 ML IV SCH (00:42)
[2024-07-12] MEDS: ONDANSETRON 4 MG/2 ML VIAL IVP STA (00:54)
[2024-07-12] MEDS: PANTOPRAZOLE 40 MG/10 ML VIAL IVP STA (00:55)
[2024-07-12 01:00] LABS: Basophils # (A) 0.01 10*3/uL (0.00-0.10); Basophils % (A) 0.1 %; HCT 40.5 % (37.2-46.3); HGB 14.2 g/dL (12.0-15.0); Lymphocytes # (A) 0.54 10*3/uL (0.90-5.00); Lymphocytes % (A) 6.5 %; MCH 29.6 pg (27.0-32.0); MCHC 35.1 g/dL (32.0-37.0); MCV 84.6 fL (80.0-97.0); Mean Platelet Volume 12.3 fL (9.5-12.2); Monocytes # (A) 0.33 10*3/uL (0.20-1.00); Neutrophils # (A) 7.39 10*3/uL (1.80-7.70); Neutrophils % (A) 89.2 %; Platelet Count 180 10*3/uL (140-440); RBC 4.79 10*6/uL (4.10-5.20); RDW 12.6 % (11.5-14.5); WBC 8.29 10*3/uL (4.50-10.00)
[2024-07-12 01:17] LABS: African American GFR (CKD) >90 (>60 ml/min/1.73 sqM); Albumin 5.2 g/dL (3.5-5.0); Amylase 89 U/L (30-110); Anion Gap 15 mmol/L; Blood Urea Nitrogen 11 mg/dL (7-17); Calcium 10.4 mg/dL (8.4-10.2); Carbon Dioxide 22 mmol/L (22-30); Chloride 102 mmol/L (98-107); Glucose 135 mg/dL (74-99); Lipase 107 U/L (23-300); Non-African American GFR(CKD) >90 (>60 ml/min/1.73 sqM); Sodium 139 mmol/L (137-145); Total Bilirubin 0.8 mg/dL (0.2-1.3); Total Protein 8.3 g/dL (6.3-8.2)
[2024-07-12 01:24] LABS: ALT 16 U/L (4-34); AST 22 U/L (14-36); Alkaline Phosphatase 58 U/L (38-126); Potassium 4.3 mmol/L (3.5-5.1)
[2024-07-12 03:13] LABS: Appearance,Urine Cloudy (Clear); Bacteria,Urine Occasional /hpf; Bilirubin,Urine Negative (Negative); Blood,Urine Small (Negative); Color,Urine Yellow; Glucose,Urine (UA) 1+ (Negative); Leukocyte Esterase,Urine Negative (Negative); Mucus,Urine Many /hpf; Nitrite,Urine Negative (Negative); Protein,Urine 1+ (Negative); RBC,Urine 8 /hpf (0-5); Specific Gravity,Urine 1.035 (1.001-1.035); Squamous Epithelial Cell,Urine 3 /hpf (0-4); Urobilinogen,Urine <2.0 mg/dL (<2.0); WBC,Urine 2 /hpf (0-5)
[2024-07-12] MEDS: HYDROmorphone 0.5 MG/0.5 ML SYRINGE IVP STA (03:14)
[2024-07-12 03:29] LABS: Ketones,Urine 2+ (Negative)
[2024-07-12] MEDS: PROCHLORPERAZINE INJ 10 MG/2 ML VIAL IVP STA (03:59)
[2024-07-12] MEDS: SODIUM CHLORIDE 0.9% 1,000 ML IV ONE (03:59)
[2024-07-12 04:45] VITALS: BP 105/59; PULSE 83; RESP 18; TEMP 99.4
== END 2024-07-12 04:44 | disposition home or self-care (01) ==
LOC: EC 22:28
DX: R11.2 Nausea with vomiting, unspecified (principal); R10.10 Upper abdominal pain, unspecified; Z88.8 Allergy status to other drugs, medicaments and biological substances; Z88.6 Allergy status to analgesic agent
CPT/HCPCS: 36415; 80053; 82150; 83690; 85025; 81001; 81025; 99284; 96374; 96375 ×3; 96361 ×3; J0780; J2405; J1171; J2470

== ENCOUNTER → 2024-10-08 | Outpatient (CLI) | payer OTHER ==
[2024-10-08 16:12] VITALS: BP 117/76; PULSE 74; RESP 16; TEMP 98.6
--- NOTE | 2024-10-08 17:24 | P.HPOB ---
History of Present Illness H&P Date: 10/08/24 Chief Complaint: The patient is here for her routine gynecologic exam. This is a 29-year-old G0 with an LMP of 09/29/2024. The patient states she was having fairly frequent episodes of generalized abdominal pain associated with nausea and vomiting. She states about every 1 or 2 months she had these episodes and frequently would end up in the emergency room. Most recently she was in the emergency room on 08/22/2024. She did have a CT scan of the abdomen pelvis which showed a 3.4 cm hemorrhagic cyst in the right ovary. GI specialist who thought it was related to her regular marijuana usage and because of this she quit smoking marijuana about 2 months ago. Her menstrual periods have been pretty regular about every 4 weeks. She currently denies any abdominal pain and denies any GI problems today. Her abdominal pain was higher in the abdomen and was not on any 1 particular side. She also states she and her boyfriend have been trying to get for about 2 to 3 years without success. She denies any vaginal discharge. She states she and her boyfriend have been in a monogamous relationship since 2021. Review of Systems The patient has lost 8 pounds over the last 2 years. She denies respiratory, cardiac, or G.I. problems. Past Medical History Past Medical History: GERD/Reflux Additional Past Medical History / Comment(s): MIGRAINES, BACK PAIN. Pancreati tis. 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 No other history of STDs. History of Any Multi-Drug Resistant Organisms: None Reported Past Surgical History: Cholecystectomy, Hernia Repair Additional Past Surgical History / Comment(s): Hiatal hernia repair. Past Anesthesia/Blood Transfusion Reactions: Motion Sickness Additional Past Anesthesia/Blood Transfusion Reaction / Comment(s): NO ANESTHESIA HX Past Psychological History: Anxiety Smoking Status: Current every day smoker (She is now smoking about a half a pack of cigarettes per day.) Past Alcohol Use History: Occasional Additional Past Alcohol Use History / Comment(s): QUIT SMOKING AT 21 YRS OLD, STARTED SMOKING AGE 15, SMOKED 1/2 PPD OR LESS. Past Drug Use History: Marijuana Additional Drug Use History / Comment(s): Hx DAILY MARIJANA USE, but states she quit about August 2024. Additional History: She is single and has been with her boyfriend since 2022. They now live together. She works at an [employer]. - Past Family History Mother Family Medical History: No Reported History Additional Family Medical History / Comment(s): Maternal grandmother had colon cancer. A maternal great grandmother had breast cancer. Father Family Medical History: Hypertension Medications and Allergies Home Medications Medication Instructions Recorded Confirmed Type Ondansetron Odt [Zofran ODT] 8 mg PO Q8HR #30 tab 02/13/24 10/08/24 Rx Budesonide-Formot 160-4.5 Mcg 2 puff INHALATION RT-BID 05/23/24 10/08/24 History [Symbicort 160-4.5 Mcg Inhaler] Famotidine [Pepcid] 20 mg PO BID 05/23/24 10/08/24 History HYDROcodone/APAP 5-325MG [[place] 1 tab PO BID 05/23/24 10/08/24 History 5-325] Acetaminophen Tab [Tylenol] 650 mg PO Q6HR PRN tab 05/24/24 10/08/24 Rx Scopolamine 1 mg/72 Hr Patch 1 patch TRANSDERM DIRECTED PRN 10/08/24 10/08/24 History [TransDerm Scop] Allergies Allergy/AdvReac Type Severity Reaction Status Date / Time ketorolac [From Toradol] Allergy Unknown Verified 10/08/24 16:01 metoclopramide [From Reglan] Allergy Unknown Verified 10/08/24 16:01 morphine Allergy Unknown Verified 10/08/24 16:01 Exam Vital Signs Temp Pulse Resp BP Pulse Ox 10/08/24 16:03 98.6 F 74 16 117/76 97 Intake and Output 10/08/24 10/08/24 10/08/24 06:59 14:59 22:59 Other: Weight 55.792 kg Height 5 feet 0 inches, weight 123 pounds, BMI 24.0 This is a well-developed well-nourished white female who is alert and oriented times 3 in no acute distress. HEENT: Within normal limits. NECK: Supple without mass or thyromegaly. CHEST AND LUNGS: Clear to auscultation. HEART: Regular rate and rhythm. BREASTS: Are without mass or discharge. AXILLARY EXAM: Negative for adenopathy. BACK: Negative for CVA tenderness. ABDOMEN: Soft, nontender, without palpable masses. There are 1+ bowel sounds. PELVIC EXAM: Normal external genitalia. Cervix and vagina appear normal. There is no unusual discharge. There is a clear cervical mucus which suggests she is nearing the time of ovulation. There is no cervical motion tenderness. There is no evidence of prolapse. The uterus is slightly retroverted, nongravid size and nontender. There are no palpable adnexal masses. There is minimal right adnexal tenderness with deep palpation. Left adnexa is nontender. RECTAL EXAM: Deferred. EXTREMITIES: Nontender. IMPRESSION: 1. 29-year-old female attempting for more than 2 years without success. Primary infertility. 2. History of right hemorrhagic ovarian cyst measuring 3.[address] scan on 08/22/2024. I doubt this was related to her upper abdominal pain for which she went to the emergency room. Differential diagnosis will include physiologic cyst, corpus luteum cyst, hemorrhagic cyst, endometriosis cyst, or other ovarian cyst. PLAN: 1. Pap smear was deferred since she had a negative Pap smear cotest on 11/01/2022. 2. Pelvic ultrasound was recommended and the order slip was given to the patient for this. 3. Had a long discussion regarding attempting . I have recommended that she take a daily multivitamin with folic acid. She will also keep a menstrual calendar. I recommended that she continue to not smoke marijuana as she did at the past. I have also recommended that she try to quit smoking and we discussed many reasons why this is important. 4. After the pelvic ultrasound, we will consider having her do a hysterosalpingogram soon after a normal menstrual period. This testing is unremarkable, consider referral for further infertility evaluation and possible treatment. 5. She was advised to return in one year for her annual well woman exam and as needed.
== END ==
LOC: WWCWWP 15:51
PROVIDERS: ATTEND Obstetrics & Gynecology
DX: Z01.419 Encounter for gynecological examination (general) (routine) without abnormal findings (principal); N97.9 Female infertility, unspecified; Z87.42 Personal history of other diseases of the female genital tract; Z88.8 Allergy status to other drugs, medicaments and biological substances; Z88.5 Allergy status to narcotic agent